=== PATIENT | male | born 1960 | race Caucasian/White ===

== ENCOUNTER → 2016-10-05 | Outpatient (CLI) | payer OTHER ==
[~2016-10-05] MED LIST: /ADVA50050 IN; ACET65TA; ALDA25TA2; ALDA25TA2 OR; AMIO400T; ASPI81TA3; ASPI81TA83 OR; ATOR1TAB18 PO; AVOD0.5C OR; BACT800T; CETI10TA OR; COENCAP; COLA100C2 OR; CORD200T; CORE12.5; CORE12.5 OR; DETROL PO; DIAZ5TAB OR; FLUC10TA; LANO0.1211; LASI40TA; LASI40TA OR; LEVO25TA5 PO; LISI5TAB OR; MAGN400C2 PO; MAGN64TASA PO; MECL25TA2 OR; METF1000 PO; METF500T PO; MOME50SP; MULTTAB4 PO; NEUR300C OR; NEUR600T OR; NEXI40GR OR; NITR0.4S SL; OMEP40CA2 PO; OXYB5TA PO; PERC5TAB8 OR; PERC5TAB8 PO; PRAV20TA2 PO; PRAV40TA OR; PRIN10TA; SKEL800T5 OR; SPIR25TA2 OR; TAMS0.4C PO; THERGRAN; TRAM100T OR; VARE05TA; VARE1TA; VENTAER INH; VITA250T; VITAMIN D50000 UNT OR; VOLT1GEL24 TD; ZOCO10TA; [UNRECOGNIZED DRUG - OTHER]; [UNRECOGNIZED DRUG - OTHER] PO; drisdol PO
--- NOTE | 2016-10-21 01:00 | ECWPNPC ---
PATIENT NAME: CAMILO ARMSTRONG : 1960 GENDER: MALE VISIT DATE: 10/05/2016 DISCHARGE DATE: 10/05/16 0955 VISIT LOCKED DATE TIME: PHYSICIAN: CELINA FORD PHYSICIAN PAGER NO: TEXT TO [phone] RESOURCE: CELINA FORD REASON FOR APPOINTMENT 1. NECK/THORACIC HISTORY OF PRESENT ILLNESS HISTORY OF PRESENT ILLNESS: PAIN THE PATIENT DESCRIBES THE PAIN... FALL RISK SCREENING: SCREENING :NO FALLS IN THE PAST YEAR TODAY'S VISIT: NOTES: FOLLOW UP VISIT FOR NECK AND THORACIC SPINE. IS STATUS POST THORACIC EPIDURAL INJECTION ON 09/07/16. PAIN PRIOR TO INJECTION WAS 8/10 WITH RADICULAR PAIN AROUND THE RIB AREA. NOTED THAT PAIN INCREASED FOR THE FIRST WEEK POST INJECTION AND THEN IMPROVED TO 5/10. HAS NOTED 50 % OVERALL IMPROVEMENT IN PAIN AND MOBILITY. WAS ALSO STARTED ON ON CYMBALTA WJICH HAS ALSO BEEN HELPFUL. WAS ABLE TO DECREASE PAIN MEDS.. CURRENT MEDICATIONS TAKING NASACORT AQ 55 MCG/ACT AEROSOL 1 PUFF IN EACH NOSTRIL NASALLY ONCE A DAY TAKING NITROSTAT 0.4 MG TABLET SUBLINGUAL 1 TAB SUBLINGUAL TAB1 TAB FOR CHEST PAIN IF NO RELIEF IN 5 MINUTES TAKE 2ND NITRO IF NO RELIEF AFTER 5 MINUTES TAKE 3RD NITRO ER TAKING MULTIVITAMINS 1 TABLET DIRECTED ORALLY DAILY, NOTES: 09-07-16 0700 TAKING ALCOHOL PREP PAD 70 % PAD DIRECTED EXTERNALLY TID PRN DX: 250.02 TAKING VITAMIN D3 2000 UNITS TABLET 1 TAB ORALLY ONCE A DAY TAKING ONE TOUCH/ONE TOUCH II STARTER 1 EA 250.02 VITRO DAILY TAKING ONE TOUCH ULTRA 2 LANCET ONE TOUCH ULTRA MINI LANCETS DIRECTED TOP QID AND PRN DX 250.00 TAKING ONE TOUCH ULTRA 2 STRIPS ONE TOUCH ULTRA MINI STRIPS DIRECTED TOP QID AND PRN DX 250.00 TAKING MIRALAX 17 GM POWDER 17GM ORALLY DAILY NEEDED, NOTES: NONE TAKING MAGNESIUM 64 MG CAPSULE 1 TAB ORALLY TWICE A DAY TAKING CLOBETASOL PROPIONATE 0.05 % CREAM 1 APPLICATION TO AFFECTED AREA EXTERNALLY TWICE A DAY NEEDED TAKING NEURONTIN 300 300 MG TABLET 1 TAB ORALLY THREE TIMES A DAY TAKING ZONISAMIDE 50 MG CAPSULE 1 CAP ORALLY ONCE DAILY TAKING ZYRTEC 10 MG TABLET 1 TABLET ORALLY ONCE A DAY TAKING COLACE 100 MG CAPSULE 1 CAPSULE NEEDED ORALLY TWICE DAILY TAKING OXYBUTYNIN CHLORIDE ER 5 MG TABLET EXTENDED RELEASE 24 HOUR DIRECTED ORALLY DAILY TAKING DETROL 2 MG TABLET 1 TABLET ORALLY TWICE A DAY TAKING TRAMADOL HCL ER 100 MG TABLET EXTENDED RELEASE 24 HOUR 1 TABLET ORALLY ONCE A DAY MDD=1 TAKING DRISDOL 84988 UNIT CAPSULE 1 CAPSULE ORALLY ONCE WEEKLY FOR 10 WEEKS TAKING LISINOPRIL 2.5MG TABLET 1 TAB ORALLY AT BEDTIME TAKING COREG 12.5MG TABLET 1 TAB ORALLY TWICE DAILY TAKING ASPIRIN 81 MG TABLET DELAYED RELEASE 1 TAB ORALLY DAILY TAKING LEVOTHYROXINE SODIUM 25 MCG TABLET 1 TABLET ON AN EMPTY STOMACH IN THE MORNING ORALLY ONCE A DAY TAKING LIPITOR 80 MG TABLET 1 TABLET ORALLY ONCE A DAY AT BEDTIME TAKING OMEPRAZOLE 40 MG CAPSULE DELAYED RELEASE 1 CAPSULE ORALLY TWICE A DAY TAKING ADVAIR DISKUS 250-50 MCG/DOSE MISCELLANEOUS 1 INHALATION. ALWAYS RINSE YOUR MOUTH OUT AFTER USE DAILY TAKING VENTOLIN HFA 108 (90 BASE) MCG/ACT AEROSOL SOLUTION 2 PUFFS INHALATION EVERY 4-6 HOURS NEEDED TAKING ALDACTONE 25 MG TABLET 1 TAB ORALLY DAILY TAKING LASIX 40 MG TABLET 1 TAB ORALLY DAILY NEEDED, NOTES: NONE TAKING MECLIZINE HCL 25 MG TABLET 1 TABLET ORALLY 1-2 TIMES DAILY NEEDED TAKING TAMSULOSIN HCL 0.4 MG CAPSULE 1 CAPSULE 30 MINUTES AFTER THE SAME MEAL EACH DAY ORALLY ONCE A DAY TAKING CYMBALTA 20 MG CAPSULE DELAYED RELEASE PARTICLES 2 CAPSULE ORALLY ONCE A DAY TAKING SKELAXIN 800 MG TABLET 1 TABLET ORALLY FOUR TIMES DAY WORKMEN COMP TAKING PERCOCET 5-325 MG TABLET 1 TABLET ORALLY Q 4 HRS PRN PAIN MDD=5 TAKING AVODART 0.5 MG CAPSULE 1 CAPSULE ORALLY ONCE A DAY TAKING METFORMIN HCL 500 MG TABLET 1 TABLET WITH MEALS IN AM, 2 TABS IN THE PM ORALLY 500MG AM, 1000MG AT BEDTIME MEDICATION LIST REVIEWED AND RECONCILED WITH THE PATIENT PAST MEDICAL HISTORY COPD- SPIROMETRY- 02/05/14- DECLINES AT THIS TIME CHF (SYSTOLIC AND DIASTOLIC)- CANNY HYPERLIPIDEMIA HYPERTENSION GERD CHRONIC LOW BACK PAIN- W COMP- DR BOJORQUEZ- CHRONIC PAIN MEDS PER [facility] PAIN MANAGEMENT. CHRONIC RT KNEE PAIN VERTIGO (SINCE 1990) OBESITY H/O HEAVY ALCOHOL USE (IN REMISSION) ASCVD 10-YEAR RISK IS 3.6% IN HTE ALLERGIES RED DYE: RASH TOMATO: NAUSEA/VOMITING: ALLERGY FINASTERIDE: FLARED CHF: CONTRAINDICATION NSAIDS: CONGESTIVE FAILURE: CONTRAINDICATION VOLTAREN: GEL/ SPASMS/PAIN: ALLERGY LYRICA: CONTRAINDICATION SOCIAL HISTORY GENERAL: TOBACCO USE ARE YOU A:NONSMOKER LEARNING BARRIERS / SPECIAL NEEDS ORIENTED TO PLAN OF CARE: PATIENT, PAIN MANAGEMENT PATIENT, ORIENTED TO PLAN OF CARE: PATIENT, PAIN MANAGEMENT PATIENT. NEW PATIENT PAIN DIARY TODAY'S VISITNOTES FROM 0-10, WHAT LEVEL IS YOUR PAIN TODAY?0 PAIN CLINIC PFS, CLERGY, PUBLIC HEALTH REFERRALS PFS REFERRAL NEEDED?NO CLERGY REFERRAL NEEDED?NO PUBLIC HEALTH REFERRAL NEEDED?NO WAS THE PROVIDER NOTIFIED OF ANY PERTINENT INFO?NO PFS REFERRAL NEEDED?NO CLERGY REFERRAL NEEDED?NO PUBLIC HEALTH REFERRAL NEEDED?NO WAS THE PROVIDER NOTIFIED OF ANY PERTINENT INFO?NO REVIEW OF SYSTEMS CONSTITUTIONAL: ANY CHANGE IN YOUR MEDICAL CONDITION? NO . CHILLS NO . FEVER NO . INFECTION: DO YOU HAVE NEW INFECTIONS? NO . DO YOU HAVE HISTORY OF MRSA? NO . MUSCULOSKELETAL: ANY NEW PATTERNS OF PAIN OR NUMBNESS? NO . GASTROENTEROLOGY: ANY NEW CHANGE IN BOWEL CONTROL? NO . GENITOURINARY: ANY NEW CHANGE IN BLADDER CONTROL? NO . IS THERE A CHANCE YOU COULD BE ? NO . HEMATOLOGY/LYMPH: DO YOU TAKE ANY BLOOD THINNERS? (FOR EXAMPLE- COUMADIN, PLAVIX, AGGRENOX, PLATEL, PRADAXA, OR XARELTO) NO . WHEN WAS YOUR LAST DOSE? DATE: TIME: . NEUROLOGY: HAVE YOU FALLEN IN THE PAST 6 MONTHS? NO . ANY NEW EXTREMITY NUMBNESS OR WEAKNESS? NO . CARDIOLOGY: DO YOU HAVE A PACEMAKER OR DEFIBRILLATOR? YES . ANGINA RECENT MILD ANGINA WITH ACTIVITY. . RESPIRATORY: HAVE YOU BEEN SICK IN THE PAST WEEK? NO . FEVER NO . FLU LIKE SYMPTOMS? NO . COUGH NO . INTEGUMENTARY: DO YOU HAVE ANY RASHES OR OPEN SORES? YES ON TAIL BONE/CHRONIUC AND IS APPLYING PRESCRIBED OINTMENT . ALLERGIC/IMMUNO: ARE YOU ALLERGIC TO SHELLFISH OR IV DYE? NO . ANY NEW ALLERGIES? NO . PSYCHIATRIC: DO YOU HAVE THOUGHTS OF HURTING YOURSELF OR SOMEONE ELSE? NO . ARE YOU ABUSED, NEGLECTED, OR IN AN UNSAFE ENVIRONMENT? NO . ENDOCRINOLOGY: ARE YOU DIABETIC? YES . OTHER: DO YOU NEED ANY PRESCRIPTIONS? NO . IF YES, PLEASE LIST: ____ . ANY NEW PROBLEMS WITH YOUR MEDICATIONS? NO . WHEN DID YOU LAST EAT? ____ . WHEN DID YOU LAST DRINK? ____ . WHAT DID YOU LAST DRINK? ____ . NAME OF PERSON DRIVING YOU HOME? ____ . DO YOU HAVE ANY OTHER QUESTIONS OR CONCERNS NO . REVIEWED BY: PROVIDER: CELINA CONTRERAS . VITAL SIGNS WT 245 LBS, HT 72 IN, BMI 33.22 INDEX, BP 126/48 MM HG, HR 78 /MIN, RR 18 /MIN, TEMP 96 F,8 F, OXYGEN SAT % 97, SAFE IN ENV? (Y/N) Y, REVIEWED BY: KG. EXAMINATION GENERAL EXAMINATION: PSYCHALERT , ORIENTED X 3 , APPROPRIATE MOOD AND AFFECT , APPEARS UNCOMFORTABLE. HAS TROUBLE SITTING STILL. LUNGS:CLEAR TO AUSCULTATION BILATERALLY. HEART:HEART RATE IRREGULAR. MUSCULOSKELETAL: TRIGGER POINTS:, ELICITED WITH PALPATION OVER MID THORACIC MUSCLES WITH RESTRICTION OF RESPIRATORY EXCURSION NOTED. , ELICITED WITH PALPATION OVER CERVICAL SPINOUS PROCESSES AND ACROSS THE TRAPEZIUS MUSCLES BILATERALLY. RESTRICTION OF ROM IN NECK MOVEMENT IS NOTED. INCREASED PAIN WITH THORACIC EXTENSION.. 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 CONTINUE CURRENT MEDS. CALL WHEN MEDS DUE. PROCEDURES PN WORKMANS' COMP OPINION IN YOUR OPINION, WAS THE INCIDENT THAT THE PATIENT DESCRIBED THE COMPETENT MEDICAL CAUSE OF THIS INJURY/ILLNESS? YES ARE THE PATIENT'S COMPLAINTS CONSISTENT WITH HIS/HER HISTORY OF THE INJURY/ILLNESS? YES IS THE PATIENT'S HISTORY OF THE INJURY/ILLNESS CONSISTENT WITH YOUR OBJECTIVE FINDING? YES WHAT IS THE PERCENTAGE OF TEMPORARY IMPAIRMENT? MODERATE TO MARKED = 66.7% IS THE PATIENT WORKING? NO DOCTOR ON SITE: THELMA NUNEZ MD PROCEDURE CODES FA211 ESTABILISHED PATIENT [facility] FACILITY CHARGE FOLLOW UP WC THORACIC 6 WEEKS ELECTRONICALLY SIGNED BY ESCOBAR VALENTIN ON 10/19/2016 AT 01:50 PM EST DISCLAIMER : THIS IS A VISIT SUMMARY EXTRACTED FROM THE [employer] CHART. IT IS NOT A COPY OF THE [employer] PROGRESS NOTE. MTDD
== END ==
LOC: M PAIN 09:00
PROVIDERS: ATTEND Nurse Practitioner Family
DX: Z09 Encounter for follow-up examination after completed treatment for conditions other than malignant neoplasm (principal); M79.1 Myalgia; G89.29 Other chronic pain; M54.14 Radiculopathy, thoracic region; M51.24 Other intervertebral disc displacement, thoracic region; M25.561 Pain in right knee; E11.9 Type 2 diabetes mellitus without complications; J44.9 Chronic obstructive pulmonary disease, unspecified; I50.40 Unspecified combined systolic (congestive) and diastolic (congestive) heart failure; I10 Essential (primary) hypertension; K21.9 Gastro-esophageal reflux disease without esophagitis; E78.5 Hyperlipidemia, unspecified; E66.9 Obesity, unspecified; Z68.33 Body mass index [BMI] 33.0-33.9, adult; Z91.048 Other nonmedicinal substance allergy status; Z91.018 Allergy to other foods; Z88.8 Allergy status to other drugs, medicaments and biological substances; Z79.891 Long term (current) use of opiate analgesic; Z79.82 Long term (current) use of aspirin; Z79.84 Long term (current) use of oral hypoglycemic drugs; Z79.899 Other long term (current) drug therapy; Z86.69 Personal history of other diseases of the nervous system and sense organs; Z85.59 Personal history of malignant neoplasm of other urinary tract organ; Z95.0 Presence of cardiac pacemaker

== ENCOUNTER → 2016-11-05 | Outpatient (CLI) | payer OTHER ==
[2016-11-05 16:43] LABS: ALBUMIN 3.8 GM/DL (3.2-5.2); ANION GAP 6 MEQ/L (8-16); BLOOD UREA NITROGEN 22 MG/DL (7-18); CALCIUM LEVEL 8.8 MG/DL (8.5-10.1); CARBON DIOXIDE LEVEL 29 MEQ/L (21-32); CHLORIDE LEVEL 106 MEQ/L (98-107); CREATININE FOR GFR 0.97 MG/DL (0.70-1.30); GLOMERULAR FILTRATION RATE > 60.0 (>56); GLUCOSE, FASTING 107 MG/DL (70-105); MAGNESIUM LEVEL 2.1 MG/DL (1.8-2.4); PHOSPHORUS LEVEL 3.4 MG/DL (2.5-4.9); POTASSIUM SERUM 4.4 MEQ/L (3.5-5.1); SODIUM LEVEL 141 MEQ/L (136-145)
== END ==
LOC: M LAB 15:54
PROVIDERS: ATTEND Physician Assistant
DX: I42.0 Dilated cardiomyopathy (principal); I50.42 Chronic combined systolic (congestive) and diastolic (congestive) heart failure

== ENCOUNTER → 2016-11-05 | Outpatient (CLI) | payer OTHER ==
[2016-11-05 16:45] LABS: ALBUMIN/GLOBULIN RATIO 1.33 (1.00-1.93); ALKALINE PHOSPHATASE 110 U/L (45-117); ALT/SGPT 26 U/L (12-78); ANION GAP 4 MEQ/L (8-16); AST/SGOT 11 U/L (15-37); BILIRUBIN,TOTAL 0.3 MG/DL (0.2-1.0); BLOOD UREA NITROGEN 22 MG/DL (7-18); CALCIUM LEVEL 9.1 MG/DL (8.5-10.1); CARBON DIOXIDE LEVEL 31 MEQ/L (21-32); CHLORIDE LEVEL 106 MEQ/L (98-107); GLOMERULAR FILTRATION RATE > 60.0 (>56); GLUCOSE, FASTING 104 MG/DL (70-105); POTASSIUM SERUM 4.6 MEQ/L (3.5-5.1); SODIUM LEVEL 141 MEQ/L (136-145)
== END ==
LOC: M LAB 15:57
PROVIDERS: ATTEND Nurse Practitioner Family
DX: E11.9 Type 2 diabetes mellitus without complications (principal)

== ENCOUNTER → 2016-11-25 | Outpatient (CLI) | payer OTHER ==
--- NOTE | 2016-11-25 23:52 | ECWPNPC ---
PATIENT NAME: CAMILO ARMSTRONG : 1960 GENDER: MALE VISIT DATE: 11/25/2016 DISCHARGE DATE: 11/25/16 1132 VISIT LOCKED DATE TIME: PHYSICIAN: CELINA FORD PHYSICIAN PAGER NO: TEXT TO [phone] RESOURCE: CELINA FORD REASON FOR APPOINTMENT 1. NECK/THORACIC HISTORY OF PRESENT ILLNESS HISTORY OF PRESENT ILLNESS: PAIN THE PATIENT DESCRIBES THE PAIN... FALL RISK SCREENING: SCREENING :NO FALLS IN THE PAST YEAR TODAY'S VISIT: NOTES: FOLLOWUP FOR NECK/THORACIC SPINE. HAD RECENT CT MYLOGRAM. RATES PAIN 8/10 IN NECK AND THORACIC AREA. REPORTS HAS HAD PERSISTANT HEADACHE. REPORTS RAISING ARMS IS VERY PAINFUL OVER MID THORACIC REGION. CURRENT MEDICATIONS TAKING NASACORT AQ 55 MCG/ACT AEROSOL 1 PUFF IN EACH NOSTRIL NASALLY ONCE A DAY TAKING NITROSTAT 0.4 MG TABLET SUBLINGUAL 1 TAB SUBLINGUAL TAB1 TAB FOR CHEST PAIN IF NO RELIEF IN 5 MINUTES TAKE 2ND NITRO IF NO RELIEF AFTER 5 MINUTES TAKE 3RD NITRO ER TAKING MULTIVITAMINS 1 TABLET DIRECTED ORALLY DAILY, NOTES: 09-07-16 0700 TAKING ALCOHOL PREP PAD 70 % PAD DIRECTED EXTERNALLY TID PRN DX: 250.02 TAKING VITAMIN D3 2000 UNITS TABLET 1 TAB ORALLY ONCE A DAY TAKING ONE TOUCH/ONE TOUCH II STARTER 1 EA 250.02 VITRO DAILY TAKING ONE TOUCH ULTRA 2 LANCET ONE TOUCH ULTRA MINI LANCETS DIRECTED TOP QID AND PRN DX 250.00 TAKING ONE TOUCH ULTRA 2 STRIPS ONE TOUCH ULTRA MINI STRIPS DIRECTED TOP QID AND PRN DX 250.00 TAKING MIRALAX 17 GM POWDER 17GM ORALLY DAILY NEEDED, NOTES: NONE TAKING MAGNESIUM 64 MG CAPSULE 1 TAB ORALLY TWICE A DAY TAKING CLOBETASOL PROPIONATE 0.05 % CREAM 1 APPLICATION TO AFFECTED AREA EXTERNALLY TWICE A DAY NEEDED TAKING ZONISAMIDE 50 MG CAPSULE 1 CAP ORALLY ONCE DAILY TAKING OXYBUTYNIN CHLORIDE ER 5 MG TABLET EXTENDED RELEASE 24 HOUR DIRECTED ORALLY DAILY TAKING DETROL 2 MG TABLET 1 TABLET ORALLY TWICE A DAY TAKING TRAMADOL HCL ER 100 MG TABLET EXTENDED RELEASE 24 HOUR 1 TABLET ORALLY ONCE A DAY MDD=1 TAKING DRISDOL 64323 UNIT CAPSULE 1 CAPSULE ORALLY ONCE WEEKLY FOR 10 WEEKS TAKING LISINOPRIL 2.5MG TABLET 1 TAB ORALLY AT BEDTIME TAKING COREG 12.5MG TABLET 1 TAB ORALLY TWICE DAILY TAKING ASPIRIN 81 MG TABLET DELAYED RELEASE 1 TAB ORALLY DAILY TAKING LEVOTHYROXINE SODIUM 25 MCG TABLET 1 TABLET ON AN EMPTY STOMACH IN THE MORNING ORALLY ONCE A DAY TAKING LIPITOR 80 MG TABLET 1 TABLET ORALLY ONCE A DAY AT BEDTIME TAKING ADVAIR DISKUS 250-50 MCG/DOSE MISCELLANEOUS 1 INHALATION. ALWAYS RINSE YOUR MOUTH OUT AFTER USE DAILY TAKING VENTOLIN HFA 108 (90 BASE) MCG/ACT AEROSOL SOLUTION 2 PUFFS INHALATION EVERY 4-6 HOURS NEEDED TAKING ALDACTONE 25 MG TABLET 1 TAB ORALLY DAILY TAKING LASIX 40 MG TABLET 1 TAB ORALLY DAILY NEEDED, NOTES: NONE TAKING MECLIZINE HCL 25 MG TABLET 1 TABLET ORALLY 1-2 TIMES DAILY NEEDED TAKING TAMSULOSIN HCL 0.4 MG CAPSULE 1 CAPSULE 30 MINUTES AFTER THE SAME MEAL EACH DAY ORALLY ONCE A DAY TAKING CYMBALTA 20 MG CAPSULE DELAYED RELEASE PARTICLES 2 CAPSULE ORALLY ONCE A DAY TAKING SKELAXIN 800 MG TABLET 1 TABLET ORALLY FOUR TIMES DAY WORKMEN COMP TAKING AVODART 0.5 MG CAPSULE 1 CAPSULE ORALLY ONCE A DAY TAKING METFORMIN HCL 500 MG TABLET 1 TABLET WITH MEALS IN AM, 2 TABS IN THE PM ORALLY 500MG AM, 1000MG AT BEDTIME TAKING PERCOCET 5-325 MG TABLET 1 TABLET ORALLY Q 4 HRS PRN PAIN MDD=5 TAKING COLACE 100 MG CAPSULE 1 CAPSULE NEEDED ORALLY TWICE DAILY TAKING ZYRTEC 10 MG TABLET 1 TABLET ORALLY ONCE A DAY TAKING GABAPENTIN 300 MG CAPSULE 1 CAPSULE ORALLY THREE TIMES A DAY TAKING OMEPRAZOLE 40 MG CAPSULE DELAYED RELEASE 1 CAPSULE ORALLY TWICE A DAY PAST MEDICAL HISTORY COPD- SPIROMETRY- 02/05/14- DECLINES AT THIS TIME CHF (SYSTOLIC AND DIASTOLIC)- [place] HYPERLIPIDEMIA HYPERTENSION GERD CHRONIC LOW BACK PAIN- W COMP- DR BOJORQUEZ- CHRONIC PAIN MEDS PER [facility] PAIN MANAGEMENT. CHRONIC RT KNEE PAIN VERTIGO (SINCE 1990) OBESITY H/O HEAVY ALCOHOL USE (IN REMISSION) ASCVD 10-YEAR RISK IS 3.6% IN HTE ALLERGIES RED DYE: RASH TOMATO: NAUSEA/VOMITING: ALLERGY FINASTERIDE: FLARED CHF: CONTRAINDICATION NSAIDS: CONGESTIVE FAILURE: CONTRAINDICATION VOLTAREN: GEL/ SPASMS/PAIN: ALLERGY LYRICA: CONTRAINDICATION SOCIAL HISTORY GENERAL: TOBACCO USE ARE YOU A:NONSMOKER LEARNING BARRIERS / SPECIAL NEEDS ORIENTED TO PLAN OF CARE: PATIENT, PAIN MANAGEMENT PATIENT, ORIENTED TO PLAN OF CARE: PATIENT, PAIN MANAGEMENT PATIENT. NEW PATIENT PAIN DIARY TODAY'S VISITNOTES FROM 0-10, WHAT LEVEL IS YOUR PAIN TODAY?0 PAIN CLINIC PFS, CLERGY, PUBLIC HEALTH REFERRALS PFS REFERRAL NEEDED?NO CLERGY REFERRAL NEEDED?NO PUBLIC HEALTH REFERRAL NEEDED?NO WAS THE PROVIDER NOTIFIED OF ANY PERTINENT INFO?NO PFS REFERRAL NEEDED?NO CLERGY REFERRAL NEEDED?NO PUBLIC HEALTH REFERRAL NEEDED?NO WAS THE PROVIDER NOTIFIED OF ANY PERTINENT INFO?NO REVIEW OF SYSTEMS CONSTITUTIONAL: ANY CHANGE IN YOUR MEDICAL CONDITION? YES SUFFERED THE STOMACH BUG FOR 8 DAYS . CHILLS NO . FEVER NO . INFECTION: DO YOU HAVE NEW INFECTIONS? HAD RECENT GI BUG WITH NAUSEA AND VOMITING AND HAS HAD SIG CONSTIPATION . DO YOU HAVE HISTORY OF MRSA? NO . MUSCULOSKELETAL: ANY NEW PATTERNS OF PAIN OR NUMBNESS? NO . GASTROENTEROLOGY: ANY NEW CHANGE IN BOWEL CONTROL? NOSIGNIFICANT DIFFICULTY WITH CONSTIPATION DESPITE MIRALAX AND STOOL SOFTENER. . GENITOURINARY: ANY NEW CHANGE IN BLADDER CONTROL? YES STOMACH BUG NOW CONSTIPATED . IS THERE A CHANCE YOU COULD BE ? NO . HEMATOLOGY/LYMPH: DO YOU TAKE ANY BLOOD THINNERS? (FOR EXAMPLE- COUMADIN, PLAVIX, AGGRENOX, PLATEL, PRADAXA, OR XARELTO) NO . WHEN WAS YOUR LAST DOSE? DATE: TIME: . NEUROLOGY: HAVE YOU FALLEN IN THE PAST 6 MONTHS? NO . ANY NEW EXTREMITY NUMBNESS OR WEAKNESS? NO . HEADACHE HEADACHE STARTS AT BASE OF HEAD AND BEHIND EYES - WORSE SINCE CT MYELOGRAM . CARDIOLOGY: DO YOU HAVE A PACEMAKER OR DEFIBRILLATOR? NO . RESPIRATORY: HAVE YOU BEEN SICK IN THE PAST WEEK? NO . FEVER NO . FLU LIKE SYMPTOMS? NO . COUGH NO . INTEGUMENTARY: DO YOU HAVE ANY RASHES OR OPEN SORES? YES LEFT ARM PIT NEW RASH A MONTH AGO ITS PAINFUL NOT ITCHY . ALLERGIC/IMMUNO: ARE YOU ALLERGIC TO SHELLFISH OR IV DYE? NO . ANY NEW ALLERGIES? NO . PSYCHIATRIC: DO YOU HAVE THOUGHTS OF HURTING YOURSELF OR SOMEONE ELSE? NO . ARE YOU ABUSED, NEGLECTED, OR IN AN UNSAFE ENVIRONMENT? NO . ENDOCRINOLOGY: ARE YOU DIABETIC? NO . OTHER: DO YOU NEED ANY PRESCRIPTIONS? NO . IF YES, PLEASE LIST: ____ . ANY NEW PROBLEMS WITH YOUR MEDICATIONS? NO . WHEN DID YOU LAST EAT? ____ . WHEN DID YOU LAST DRINK? ____ . WHAT DID YOU LAST DRINK? ____ . NAME OF PERSON DRIVING YOU HOME? ____ . DO YOU HAVE ANY OTHER QUESTIONS OR CONCERNS NO . REVIEWED BY: PROVIDER: CELINA CONTRERAS . VITAL SIGNS WT 254 LBS, HT 72 IN, BMI 34.44 INDEX, BP 113/66 MM HG, HR 89 /MIN, RR 18 /MIN, TEMP 97.3 F, OXYGEN SAT % 96%, NA INITIALS SC 11:05, REVIEWED BY: KG. EXAMINATION GENERAL EXAMINATION: PSYCHALERT , ORIENTED X 3 , APPROPRIATE MOOD AND AFFECT , APPEARS UNCOMFORTABLE. LUNGS:CLEAR TO AUSCULTATION BILATERALLY - NOT THORACIC CHEST WAL PAIN WITH TAKING A DEEP BREATH. HEART:HEART RATE REGULAR. MUSCULOSKELETAL:MANAGER HARBOR STRENGTH EQUAL AND STRONG. MARKED DECREASE WITH NECK FLEXION/EXTENSION, ROTATION. , TRIGGER POINTS AND TIGHT FIROUS BANDS OVER CERVICAL PARASPINOUS MUSCLES AND OVER THE TRAPEZIUS, RIGHT GREATER THAN LEFT. SLOW TO RISE TO STANDING POSITION. POSTURE STOOPED. GAIT ANTALGIC.. NEUROLOGIC EXAM:CN'S II-XII GROSSLY INTACT. EOM'S INTACT WITHOUT NYSTAGMUS. SPEACH NON DYSARTHRIC.. 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 USE TENNIS TO TRIGGER POINTS IN MID THORACIC REGION. CONTINUE CURRENT MEDS FOR PAIN CONTROL AND MUSCLE SPASMS. CLINICAL NOTES: ISTOP REGISTRY REVIEWED AND DEMNOSTRATES COMPLLIANCE. BRINGS IN MEDICATIONS WHICH IS APPROPRIATE FOR WHAT WAS DISPENSED. RECENT URINE TOXICOLOGY REVIEWED. NO UNAUTHORIZED MEDICATIONS. NO ILLICIT SUBSTANCES AND PRESCRIBED MEDICATIONS WERE PRESENT. PROCEDURES PN WORKMANS' COMP OPINION IN YOUR OPINION, WAS THE INCIDENT THAT THE PATIENT DESCRIBED THE COMPETENT MEDICAL CAUSE OF THIS INJURY/ILLNESS? YES ARE THE PATIENT'S COMPLAINTS CONSISTENT WITH HIS/HER HISTORY OF THE INJURY/ILLNESS? YES IS THE PATIENT'S HISTORY OF THE INJURY/ILLNESS CONSISTENT WITH YOUR OBJECTIVE FINDING? YES WHAT IS THE PERCENTAGE OF TEMPORARY IMPAIRMENT? MODERATE TO MARKED = 66.7% IS THE PATIENT WORKING? NO DOCTOR ON SITE: THELMA NUNEZ MD PROCEDURE CODES FA211 ESTABILISHED PATIENT [facility] CHARGE DISPOSITION & COMMUNICATION FOLLOW UP WC 6 WEEKS (REASON: NECK/THORACIC) ELECTRONICALLY SIGNED BY ESCOBAR VALENTIN ON 11/25/2016 AT 04:20 PM EST DISCLAIMER : THIS IS A VISIT SUMMARY EXTRACTED FROM THE [employer] CHART. IT IS NOT A COPY OF THE [employer] PROGRESS NOTE. JULIETA
== END ==
LOC: M PAIN 10:20
PROVIDERS: ATTEND Nurse Practitioner Family
DX: Z09 Encounter for follow-up examination after completed treatment for conditions other than malignant neoplasm (principal); G89.29 Other chronic pain; M79.1 Myalgia; M54.14 Radiculopathy, thoracic region; M51.24 Other intervertebral disc displacement, thoracic region; J44.9 Chronic obstructive pulmonary disease, unspecified; I50.9 Heart failure, unspecified; E78.5 Hyperlipidemia, unspecified; I11.0 Hypertensive heart disease with heart failure; K21.9 Gastro-esophageal reflux disease without esophagitis; E66.9 Obesity, unspecified; Z68.34 Body mass index [BMI] 34.0-34.9, adult; L23.4 Allergic contact dermatitis due to dyes; Z91.018 Allergy to other foods; Z88.6 Allergy status to analgesic agent; Z88.8 Allergy status to other drugs, medicaments and biological substances; Z79.82 Long term (current) use of aspirin; Z79.51 Long term (current) use of inhaled steroids; Z79.84 Long term (current) use of oral hypoglycemic drugs; Z79.891 Long term (current) use of opiate analgesic; Z79.899 Other long term (current) drug therapy; Z86.69 Personal history of other diseases of the nervous system and sense organs

== ENCOUNTER → 2016-12-27 | Outpatient (CLI) | payer OTHER ==
[2016-12-27 15:56] LABS: BASO % 0.6 % (0.0-1.0); EOS # 0.3 K/mm3 (0.0-0.50); LARGE UNSTAINED CELL # 0.1 K/mm3 (0.0-0.4); LARGE UNSTAINED CELL % 1.6 % (0.0-4.0); LYMPH # 1.8 K/mm3 (1.5-4.5); LYMPH % 20.4 % (24.0-44.0); MEAN CORPUSCULAR HEMOGLOBIN 29.3 pg (27.0-33.0); MEAN CORPUSCULAR HGB CONC 32.8 g/dl (32.0-36.5); MEAN CORPUSCULAR VOLUME 89.3 fl (80.0-96.0); MONO # 0.5 K/mm3 (0.0-0.8); MONO % 6.7 % (0.0-5.0); NEUTROPHILS # 5.4 K/mm3 (1.8-7.7); NEUTROPHILS % 66.7 % (36.0-66.0); PLATELET COUNT, AUTOMATED 237 k/mm3 (150-450); RED CELL DISTRIBUTION WIDTH 13.5 % (11.5-14.5)
[2016-12-27 16:42] LABS: ANION GAP 7 MEQ/L (8-16); BLOOD UREA NITROGEN 21 MG/DL (7-18); CARBON DIOXIDE LEVEL 27 MEQ/L (21-32); CHLORIDE LEVEL 105 MEQ/L (98-107); CREATININE FOR GFR 0.96 MG/DL (0.70-1.30); GLOMERULAR FILTRATION RATE > 60.0 (>56); GLUCOSE, FASTING 116 MG/DL (70-105); PHOSPHORUS LEVEL 3.6 MG/DL (2.5-4.9); POTASSIUM SERUM 4.5 MEQ/L (3.5-5.1); SODIUM LEVEL 139 MEQ/L (136-145)
== END ==
LOC: M LAB 14:55
PROVIDERS: ATTEND Physician Assistant
DX: I42.0 Dilated cardiomyopathy (principal); I50.42 Chronic combined systolic (congestive) and diastolic (congestive) heart failure; I47.2 Ventricular tachycardia

== ENCOUNTER → 2017-01-06 | Outpatient (CLI) | payer OTHER ==
--- NOTE | 2017-01-08 00:31 | ECWPNPC ---
PATIENT NAME: CAMILO ARMSTRONG : 1960 GENDER: MALE VISIT DATE: 01/06/2017 DISCHARGE DATE: 01/06/17 1111 VISIT LOCKED DATE TIME: PHYSICIAN: CELINA FORD PHYSICIAN PAGER NO: TEXT TO [phone] RESOURCE: CELINA FORD REASON FOR APPOINTMENT 1. NECK/THORACIC-WC HISTORY OF PRESENT ILLNESS HISTORY OF PRESENT ILLNESS: PAIN THE PATIENT DESCRIBES THE PAIN... FALL RISK SCREENING: SCREENING :NO FALLS IN THE PAST YEAR TODAY'S VISIT: NOTES: WC- THORACIC SPINE (SPEC FUNDS) HAS NOTED A RETURN OF MID THORACIC PAIN OVER LAST FEW WEEKS. RATES PAIN TODAY 7/10. DESCRIBES PAIN CONSTANT, INTERMITTANTLY SHARP AND STABBING, TENDER ACHING AND TROBBING AND SORE. CURRENT MEDICATIONS TAKING LISINOPRIL 2.5MG TABLET 1 TAB ORALLY AT BEDTIME TAKING COREG 12.5MG TABLET 1 TAB ORALLY TWICE DAILY TAKING ASPIRIN 81 MG TABLET DELAYED RELEASE 1 TAB ORALLY DAILY TAKING LIPITOR 80 MG TABLET 1 TABLET ORALLY ONCE A DAY AT BEDTIME TAKING ADVAIR DISKUS 250-50 MCG/DOSE MISCELLANEOUS 1 INHALATION. ALWAYS RINSE YOUR MOUTH OUT AFTER USE DAILY TAKING VENTOLIN HFA 108 (90 BASE) MCG/ACT AEROSOL SOLUTION 2 PUFFS INHALATION EVERY 4-6 HOURS NEEDED TAKING ALDACTONE 25 MG TABLET 1 TAB ORALLY DAILY TAKING LASIX 40 MG TABLET 1 TAB ORALLY DAILY NEEDED, NOTES: NONE TAKING MECLIZINE HCL 25 MG TABLET 1 TABLET ORALLY 1-2 TIMES DAILY NEEDED TAKING METFORMIN HCL 500 MG TABLET 1 TABLET WITH MEALS IN AM, 2 TABS IN THE PM ORALLY 500MG AM, 1000MG AT BEDTIME TAKING OMEPRAZOLE 40 MG CAPSULE DELAYED RELEASE 1 CAPSULE ORALLY TWICE A DAY TAKING OXYBUTYNIN CHLORIDE ER 5 MG TABLET EXTENDED RELEASE 24 HOUR DIRECTED ORALLY DAILY TAKING KETOCONAZOLE 2 % CREAM 1 APPLICATION TO AFFECTED AREA EXTERNALLY ONCE A DAY TAKING NASACORT AQ 55 MCG/ACT AEROSOL 1 PUFF IN EACH NOSTRIL NASALLY ONCE A DAY TAKING NITROSTAT 0.4 MG TABLET SUBLINGUAL 1 TAB SUBLINGUAL TAB1 TAB FOR CHEST PAIN IF NO RELIEF IN 5 MINUTES TAKE 2ND NITRO IF NO RELIEF AFTER 5 MINUTES TAKE 3RD NITRO ER TAKING VITAMIN D3 2000 UNITS TABLET 1 TAB ORALLY ONCE A DAY TAKING MIRALAX 17 GM POWDER 17GM ORALLY DAILY NEEDED, NOTES: NONE TAKING MAGNESIUM 64 MG CAPSULE 1 TAB ORALLY TWICE A DAY TAKING CLOBETASOL PROPIONATE 0.05 % CREAM 1 APPLICATION TO RECTAL AREA EXTERNALLY TWICE A DAY NEEDED TAKING ZONISAMIDE 50 MG CAPSULE 1 CAP ORALLY ONCE DAILY TAKING TRAMADOL HCL ER 100 MG TABLET EXTENDED RELEASE 24 HOUR 1 TABLET ORALLY ONCE A DAY MDD=1 TAKING TAMSULOSIN HCL 0.4 MG CAPSULE 1 CAPSULE 30 MINUTES AFTER THE SAME MEAL EACH DAY ORALLY ONCE A DAY TAKING CYMBALTA 30 MG CAPSULE DELAYED RELEASE PARTICLES 1 CAPSULE ORALLY ONCE A DAY TAKING SKELAXIN 800 MG TABLET 1 TABLET ORALLY FOUR TIMES DAY WORKMEN COMP TAKING AVODART 0.5 MG CAPSULE 1 CAPSULE ORALLY ONCE A DAY TAKING COLACE 100 MG CAPSULE 1 CAPSULE NEEDED ORALLY TWICE DAILY TAKING ZYRTEC 10 MG TABLET 1 TABLET ORALLY ONCE A DAY TAKING GABAPENTIN 300 MG CAPSULE 1 CAPSULE ORALLY THREE TIMES A DAY TAKING MOVANTIK 25 MG TABLET 1 TABLET IN THE MORNING ORALLY ONCE A DAY, NOTES: 12/02/2016 WAITING ON PRIOR AUTH TAKING DRISDOL 03333 UNIT CAPSULE 1 CAPSULE ORALLY ONCE WEEKLY FOR 10 WEEKS TAKING LEVOTHYROXINE SODIUM 25 MCG TABLET 1 TABLET ON AN EMPTY STOMACH IN THE MORNING ORALLY ONCE A DAY TAKING PERCOCET 5-325 MG TABLET 1 TABLET ORALLY Q 4 HRS PRN PAIN MDD=5 NOT-TAKING DETROL 2 MG TABLET 1 TABLET ORALLY TWICE A DAY NOT-TAKING ONE TOUCH/ONE TOUCH II STARTER 1 EA 250.02 VITRO DAILY UNKNOWN MULTIVITAMINS 1 TABLET DIRECTED ORALLY DAILY, NOTES: 09-07-16 0700 UNKNOWN ALCOHOL PREP PAD 70 % PAD DIRECTED EXTERNALLY TID PRN DX: 250.02 UNKNOWN ONE TOUCH ULTRA 2 LANCET ONE TOUCH ULTRA MINI LANCETS DIRECTED TOP QID AND PRN DX 250.00 UNKNOWN ONE TOUCH ULTRA 2 STRIPS ONE TOUCH ULTRA MINI STRIPS DIRECTED TOP QID AND PRN DX 250.00 MEDICATION LIST REVIEWED AND RECONCILED WITH THE PATIENT PAST MEDICAL HISTORY COPD- SPIROMETRY- 02/05/14- DECLINES AT THIS TIME CHF (SYSTOLIC AND DIASTOLIC)- CANNY HYPERLIPIDEMIA HYPERTENSION GERD CHRONIC LOW BACK PAIN- W COMP- DR BOJORQUEZ- CHRONIC PAIN MEDS PER [facility] PAIN MANAGEMENT. CHRONIC RT KNEE PAIN VERTIGO (SINCE 1990) OBESITY H/O HEAVY ALCOHOL USE (IN REMISSION) ASCVD 10-YEAR RISK IS 3.6% IN HTE COLONOSCOPY 2009 ALLERGIES RED DYE: RASH TOMATO: NAUSEA/VOMITING: ALLERGY FINASTERIDE: FLARED CHF: CONTRAINDICATION NSAIDS: CONGESTIVE FAILURE: CONTRAINDICATION VOLTAREN: GEL/ SPASMS/PAIN: ALLERGY LYRICA: CONTRAINDICATION SOCIAL HISTORY GENERAL: PAIN CLINIC PFS, CLERGY, PUBLIC HEALTH REFERRALS CLERGY REFERRAL NEEDED?NO WAS THE PROVIDER NOTIFIED OF ANY PERTINENT INFO?NO PFS REFERRAL NEEDED?NO PUBLIC HEALTH REFERRAL NEEDED?NO PATIENT: ____. REVIEW OF SYSTEMS CONSTITUTIONAL: ANY CHANGE IN YOUR MEDICAL CONDITION? YES FOOT SURGERY AT [facility] DR[facility] FRANCO'S FOR INGROWN TOENAIL END OF NOVEMBER&NBSP;. CHILLS &NBSP;&NBSP; NO&NBSP;. FEVER &NBSP;&NBSP; NO&NBSP;. INFECTION: DO YOU HAVE NEW INFECTIONS? NO . DO YOU HAVE HISTORY OF MRSA? NO . MUSCULOSKELETAL: ANY NEW PATTERNS OF PAIN OR NUMBNESS? NO . GASTROENTEROLOGY: GENERAL SIGNIFICANT CONSTIPATION. COMP WILL NOT APPROVE MOVANTIK. . ANY NEW CHANGE IN BOWEL CONTROL? NO . GENITOURINARY: ANY NEW CHANGE IN BLADDER CONTROL? NO . IS THERE A CHANCE YOU COULD BE ? NO . HEMATOLOGY/LYMPH: DO YOU TAKE ANY BLOOD THINNERS? (FOR EXAMPLE- COUMADIN, PLAVIX, AGGRENOX, PLATEL, PRADAXA, OR XARELTO) NO . WHEN WAS YOUR LAST DOSE? DATE: TIME: . NEUROLOGY: HAVE YOU FALLEN IN THE PAST 6 MONTHS? NO . ANY NEW EXTREMITY NUMBNESS OR WEAKNESS? NO . CARDIOLOGY: DO YOU HAVE A PACEMAKER OR DEFIBRILLATOR? YES AICD REPLACED 4/5 . RESPIRATORY: HAVE YOU BEEN SICK IN THE PAST WEEK? NO . FEVER NO . FLU LIKE SYMPTOMS? NO . COUGH NO . INTEGUMENTARY: DO YOU HAVE ANY RASHES OR OPEN SORES? NO . ALLERGIC/IMMUNO: ARE YOU ALLERGIC TO SHELLFISH OR IV DYE? NO . ANY NEW ALLERGIES? NO . PSYCHIATRIC: DO YOU HAVE THOUGHTS OF HURTING YOURSELF OR SOMEONE ELSE? NO . ARE YOU ABUSED, NEGLECTED, OR IN AN UNSAFE ENVIRONMENT? NO . ENDOCRINOLOGY: ARE YOU DIABETIC? YES BLOOD SUGARS 100 OR LESS . OTHER: DO YOU NEED ANY PRESCRIPTIONS? NO . IF YES, PLEASE LIST: ____ . ANY NEW PROBLEMS WITH YOUR MEDICATIONS? NO . WHEN DID YOU LAST EAT? ____ . WHEN DID YOU LAST DRINK? ____ . WHAT DID YOU LAST DRINK? ____ . NAME OF PERSON DRIVING YOU HOME? ____ . DO YOU HAVE ANY OTHER QUESTIONS OR CONCERNS YES YASMEEN HAS NOT BEEN AUTHORIZED BY WORKMAN'S COMP YET&NBSP;. REVIEWED BY: PROVIDER: CELINA CONTRERAS . VITAL SIGNS WT 256.8 LBS, HT 72 IN, BMI 34.82 INDEX, BP 114/56 MM HG, HR 83 /MIN, RR 18 /MIN, TEMP 98.7 F, OXYGEN SAT % 94%, SAFE IN ENV? (Y/N) YES, NA INITIALS AW 1013, REVIEWED BY: CAITIE. EXAMINATION GENERAL EXAMINATION: PSYCHALERT , ORIENTED X 3 , APPROPRIATE MOOD AND AFFECT , APPEARS UNCOMFORTABLE. LUNGS:CLEAR TO AUSCULTATION BILATERALLY - NOTES THORACIC CHEST WAL PAIN WITH TAKING A DEEP BREATH. HEART:HEART RATE REGULAR. MUSCULOSKELETAL:PRODUCTION AIDE STRENGTH EQUAL AND STRONG. DECREASE WITH NECK FLEXION/EXTENSION, ROTATION. ,POINT TENDERNESS OVER THORACIC SPINOUS PROCESSES AT THE T6-7, T7-8 AND T8-9 LEVELS. BILATERAL TENDERNESS OVER THOACIC PARAVERTEBRAL MUSCLES. REPORTS INCREASE IN THORACIC PAIN WITH THORACIC FLEXION, EXTENSION AND ROTATION. SLOW TO RISE TO STANDING POSITION. POSTURE IS SLOUCHED. NEUROLOGIC EXAM:CN'S II-XII GROSSLY INTACT. EOM'S INTACT WITHOUT NYSTAGMUS. SPEACH NON DYSARTHRIC.. 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 CLINICAL NOTES: ISTOP REGISTRY REVIEWED AND DEMNOSTRATES COMPLLIANCE. BRINGS IN MEDICATIONS WHICH IS APPROPRIATE FOR WHAT WAS DISPENSED. RECENT URINE TOXICOLOGY REVIEWED. NO UNAUTHORIZED MEDICATIONS. NO ILLICIT SUBSTANCES AND PRESCRIBED MEDICATIONS WERE PRESENT. PROCEDURES PN WORKMANS' COMP OPINION IN YOUR OPINION, WAS THE INCIDENT THAT THE PATIENT DESCRIBED THE COMPETENT MEDICAL CAUSE OF THIS INJURY/ILLNESS? YES ARE THE PATIENT'S COMPLAINTS CONSISTENT WITH HIS/HER HISTORY OF THE INJURY/ILLNESS? YES IS THE PATIENT'S HISTORY OF THE INJURY/ILLNESS CONSISTENT WITH YOUR OBJECTIVE FINDING? YES WHAT IS THE PERCENTAGE OF TEMPORARY IMPAIRMENT? MODERATE TO MARKED = 66.7% IS THE PATIENT WORKING? NO DOCTOR ON SITE: THELMA NUNEZ MD PROCEDURE CODES FA211 ESTABILISHED PATIENT [facility] CHARGE DISPOSITION & COMMUNICATION FOLLOW UP REASON: WC CHECK AUTH FOR THORACIC YING ELECTRONICALLY SIGNED BY ESCOBAR VALENTIN ON 01/07/2017 AT 01:18 PM EDT DISCLAIMER : THIS IS A VISIT SUMMARY EXTRACTED FROM THE [employer] CHART. IT IS NOT A COPY OF THE [employer] PROGRESS NOTE. JULIETA
== END ==
LOC: M PAIN 10:00
PROVIDERS: ATTEND Nurse Practitioner Family
DX: Z09 Encounter for follow-up examination after completed treatment for conditions other than malignant neoplasm (principal); G89.29 Other chronic pain; M79.1 Myalgia; M54.14 Radiculopathy, thoracic region; M51.24 Other intervertebral disc displacement, thoracic region; E11.9 Type 2 diabetes mellitus without complications; J44.9 Chronic obstructive pulmonary disease, unspecified; I50.9 Heart failure, unspecified; E78.5 Hyperlipidemia, unspecified; I10 Essential (primary) hypertension; K21.9 Gastro-esophageal reflux disease without esophagitis; E66.9 Obesity, unspecified; Z68.34 Body mass index [BMI] 34.0-34.9, adult; R42 Dizziness and giddiness; Z91.048 Other nonmedicinal substance allergy status; Z91.018 Allergy to other foods; Z88.6 Allergy status to analgesic agent; Z88.8 Allergy status to other drugs, medicaments and biological substances; Z79.82 Long term (current) use of aspirin; Z79.84 Long term (current) use of oral hypoglycemic drugs; Z79.891 Long term (current) use of opiate analgesic; Z79.899 Other long term (current) drug therapy; Z95.810 Presence of automatic (implantable) cardiac defibrillator

== ENCOUNTER → 2017-02-08 | Outpatient (CLI) | payer OTHER ==
[~2017-02-08] MED LIST changes: +ISOVUE-M 300 61% 15ML VIAL (Q9967) As Ordered ONE; +LIDOCAINE 1% SDV INJ 30 ML VIAL As Ordered ONE; +methylPREDNISolone SUSP 40 MG/ML (DEPO-medrol) VIAL (J1030) As Ordered ONE
--- NOTE | 2017-02-08 12:17 | REP ---
Partial thoracic spine series: Limited study, three views. History: Injection procedure for pain. 34 seconds of fluoroscopy time is reported. Findings: A sequence of three fluoroscopically obtained intraprocedural spot radiographs of the thoracic spine document needle position and contrast injection associated with thoracic epidural injection procedure. Signed by Lele Mcrae MD 02/08/2017 12:27 P
--- NOTE | 2017-02-17 23:53 | ECWPNPC ---
PATIENT NAME: CAMILO ARMSTRONG : 1960 GENDER: MALE VISIT DATE: 02/08/2017 DISCHARGE DATE: 02/08/17 1233 VISIT LOCKED DATE TIME: PHYSICIAN: THELMA BHARDWAJ PHYSICIAN PAGER NO: TEXT TO [phone] RESOURCE: THELMA BHARDWAJ REASON FOR APPOINTMENT 1. TPI HISTORY OF PRESENT ILLNESS HISTORY OF PRESENT ILLNESS: PAIN THE PATIENT DESCRIBES THE PAIN... FALL RISK SCREENING: SCREENING :NO FALLS IN THE PAST YEAR CURRENT MEDICATIONS TAKING LISINOPRIL 2.5MG TABLET 1 TAB ORALLY AT BEDTIME, NOTES: 02/07/172199 TAKING COREG 12.5MG TABLET 1 TAB ORALLY TWICE DAILY, NOTES: 02/08/17629 TAKING ASPIRIN 81 MG TABLET DELAYED RELEASE 1 TAB ORALLY DAILY, NOTES: 02/07/172199 TAKING LIPITOR 80 MG TABLET 1 TABLET ORALLY ONCE A DAY AT BEDTIME, NOTES: 02/07/171999 TAKING ADVAIR DISKUS 250-50 MCG/DOSE MISCELLANEOUS 1 INHALATION. ALWAYS RINSE YOUR MOUTH OUT AFTER USE DAILY, NOTES: 02/07/17799 TAKING VENTOLIN HFA 108 (90 BASE) MCG/ACT AEROSOL SOLUTION 2 PUFFS INHALATION EVERY 4-6 HOURS NEEDED, NOTES: NONE RECENT TAKING ALDACTONE 25 MG TABLET 1 TAB ORALLY DAILY, NOTES: 02/07/172199 TAKING LASIX 40 MG TABLET 1 TAB ORALLY DAILY NEEDED, NOTES: NONENONE RECENT TAKING MECLIZINE HCL 25 MG TABLET 1 TABLET ORALLY 1-2 TIMES DAILY NEEDED, NOTES: 02/08/17629 TAKING METFORMIN HCL 500 MG TABLET 1 TABLET WITH MEALS IN AM, 2 TABS IN THE PM ORALLY 500MG AM, 1000MG AT BEDTIME, NOTES: 02/07/172099 TAKING OMEPRAZOLE 40 MG CAPSULE DELAYED RELEASE 1 CAPSULE ORALLY TWICE A DAY, NOTES: 02/08/17629 TAKING OXYBUTYNIN CHLORIDE ER 5 MG TABLET EXTENDED RELEASE 24 HOUR DIRECTED ORALLY DAILY, NOTES: 02/08/17629 TAKING KETOCONAZOLE 2 % CREAM 1 APPLICATION TO AFFECTED AREA EXTERNALLY ONCE A DAY, NOTES: NONE RECENT TAKING NASACORT AQ 55 MCG/ACT AEROSOL 1 PUFF IN EACH NOSTRIL NASALLY ONCE A DAY, NOTES: 02/07/17 08 TAKING NITROSTAT 0.4 MG TABLET SUBLINGUAL 1 TAB SUBLINGUAL TAB1 TAB FOR CHEST PAIN IF NO RELIEF IN 5 MINUTES TAKE 2ND NITRO IF NO RELIEF AFTER 5 MINUTES TAKE 3RD NITRO ER, NOTES: NONE RECENT TAKING VITAMIN D3 2000 UNITS TABLET 1 TAB ORALLY ONCE A DAY, NOTES: 02/07/172199 TAKING MIRALAX 17 GM POWDER 17GM ORALLY DAILY NEEDED, NOTES: NONE RECENT TAKING MAGNESIUM 64 MG CAPSULE 1 TAB ORALLY TWICE A DAY, NOTES: 02/08/17629 TAKING CLOBETASOL PROPIONATE 0.05 % CREAM 1 APPLICATION TO RECTAL AREA EXTERNALLY TWICE A DAY NEEDED, NOTES: NONE RECENT TAKING ZONISAMIDE 50 MG CAPSULE 1 CAP ORALLY ONCE DAILY, NOTES: 02/07/172199 TAKING TRAMADOL HCL ER 100 MG TABLET EXTENDED RELEASE 24 HOUR 1 TABLET ORALLY ONCE A DAY MDD=1, NOTES: 02/08/17629 TAKING TAMSULOSIN HCL 0.4 MG CAPSULE 1 CAPSULE 30 MINUTES AFTER THE SAME MEAL EACH DAY ORALLY ONCE A DAY, NOTES: 02/07/172199 TAKING CYMBALTA 30 MG CAPSULE DELAYED RELEASE PARTICLES 1 CAPSULE ORALLY ONCE A DAY, NOTES: 02/07/172199 TAKING SKELAXIN 800 MG TABLET 1 TABLET ORALLY FOUR TIMES DAY WORKMEN COMP, NOTES: 02/08/17899 TAKING AVODART 0.5 MG CAPSULE 1 CAPSULE ORALLY ONCE A DAY, NOTES: 02/07/172199 TAKING COLACE 100 MG CAPSULE 1 CAPSULE NEEDED ORALLY TWICE DAILY, NOTES: 02/08/17629 TAKING ZYRTEC 10 MG TABLET 1 TABLET ORALLY ONCE A DAY, NOTES: 02/07/172199 TAKING GABAPENTIN 300 MG CAPSULE 1 CAPSULE ORALLY THREE TIMES A DAY, NOTES: 02/08/17899 TAKING MOVANTIK 25 MG TABLET 1 TABLET IN THE MORNING ORALLY ONCE A DAY, NOTES: 12/02/2016 WAITING ON PRIOR AUTH TAKING DRISDOL 00176 UNIT CAPSULE 1 CAPSULE ORALLY ONCE WEEKLY FOR 10 WEEKS, NOTES: 02/05/17 TAKING LEVOTHYROXINE SODIUM 25 MCG TABLET 1 TABLET ON AN EMPTY STOMACH IN THE MORNING ORALLY ONCE A DAY, NOTES: 02/08/17629 TAKING DETROL 2 MG TABLET 1 TABLET ORALLY TWICE A DAY, NOTES: 02/08/17629 TAKING PERCOCET 5-325 MG TABLET 1 TABLET ORALLY Q 4 HRS PRN PAIN MDD=5, NOTES: 02/08/17899 NOT-TAKING ONE TOUCH/ONE TOUCH II STARTER 1 EA 250.02 VITRO DAILY UNKNOWN MULTIVITAMINS 1 TABLET DIRECTED ORALLY DAILY, NOTES: 09-07-16 0700 UNKNOWN ALCOHOL PREP PAD 70 % PAD DIRECTED EXTERNALLY TID PRN DX: 250.02 UNKNOWN ONE TOUCH ULTRA 2 LANCET ONE TOUCH ULTRA MINI LANCETS DIRECTED TOP QID AND PRN DX 250.00 UNKNOWN ONE TOUCH ULTRA 2 STRIPS ONE TOUCH ULTRA MINI STRIPS DIRECTED TOP QID AND PRN DX 250.00 MEDICATION LIST REVIEWED AND RECONCILED WITH THE PATIENT PAST MEDICAL HISTORY COPD- SPIROMETRY- 02/05/14- DECLINES AT THIS TIME CHF (SYSTOLIC AND DIASTOLIC)- CANNY HYPERLIPIDEMIA HYPERTENSION GERD CHRONIC LOW BACK PAIN- W COMP- DR BOJORQUEZ- CHRONIC PAIN MEDS PER [facility] PAIN MANAGEMENT. CHRONIC RT KNEE PAIN VERTIGO (SINCE 1990) OBESITY H/O HEAVY ALCOHOL USE (IN REMISSION) ASCVD 10-YEAR RISK IS 3.6% IN HTE COLONOSCOPY 2009 ALLERGIES RED DYE: RASH TOMATO: NAUSEA/VOMITING: ALLERGY FINASTERIDE: FLARED CHF: CONTRAINDICATION NSAIDS: CONGESTIVE FAILURE: CONTRAINDICATION VOLTAREN: GEL/ SPASMS/PAIN: ALLERGY LYRICA: CONTRAINDICATION SURGICAL HISTORY NO PERSONAL OR FHX SEVERE REACTION TO ANESTHESIA R HUMERUS FIXATION 1972 R MEDIAL MENISCECTOMY 1981 DRAINAGE OF R NECK ? PERITONSILAR ABSCESS 1996 S/P AICD PLACMENT 2007 L4-S1 SPINAL DECOMPRESSION WITH INSTRUMENTED POSTERIOR AND INTERBODY FUSION. DUROTOMY REPAIR. ([facility] @ [facility]) 03/2011 EGD-REINDL NML 03/13/10 COLONOSCOPY- REINDL. DIVERTICULOSIS- REPEAT 5-10 YEARS 03/13/10 RIGHT KNEE SURGERY BY ORTHO 02/05 NEW ICD 12/29/16 HOSPITALIZATION/MAJOR DIAGNOSTIC PROCEDURE CHF 2008 DOG BITE 01/2015 REVIEW OF SYSTEMS CONSTITUTIONAL: ANY CHANGE IN YOUR MEDICAL CONDITION? NO . CHILLS NO . FEVER NO . INFECTION: DO YOU HAVE NEW INFECTIONS? NO . DO YOU HAVE HISTORY OF MRSA? NO . MUSCULOSKELETAL: ANY NEW PATTERNS OF PAIN OR NUMBNESS? NO . GASTROENTEROLOGY: ANY NEW CHANGE IN BOWEL CONTROL? NO . GENITOURINARY: ANY NEW CHANGE IN BLADDER CONTROL? NO . IS THERE A CHANCE YOU COULD BE ? NO . HEMATOLOGY/LYMPH: DO YOU TAKE ANY BLOOD THINNERS? (FOR EXAMPLE- COUMADIN, PLAVIX, AGGRENOX, PLATEL, PRADAXA, OR XARELTO) NO . WHEN WAS YOUR LAST DOSE? DATE: TIME: . NEUROLOGY: HAVE YOU FALLEN IN THE PAST 6 MONTHS? NO . ANY NEW EXTREMITY NUMBNESS OR WEAKNESS? NO . RESPIRATORY: HAVE YOU BEEN SICK IN THE PAST WEEK? NO . FEVER NO . FLU LIKE SYMPTOMS? NO . COUGH NO . INTEGUMENTARY: DO YOU HAVE ANY RASHES OR OPEN SORES? NO . ALLERGIC/IMMUNO: ARE YOU ALLERGIC TO SHELLFISH OR IV DYE? NO . ANY NEW ALLERGIES? NO . PSYCHIATRIC: DO YOU HAVE THOUGHTS OF HURTING YOURSELF OR SOMEONE ELSE? NO . ARE YOU ABUSED, NEGLECTED, OR IN AN UNSAFE ENVIRONMENT? NO . ENDOCRINOLOGY: ARE YOU DIABETIC? YES FSBS 121 @ 0830 . OTHER: DO YOU NEED ANY PRESCRIPTIONS? NO . IF YES, PLEASE LIST: ____ . ANY NEW PROBLEMS WITH YOUR MEDICATIONS? NO . WHEN DID YOU LAST EAT? 02/07/171999 . WHEN DID YOU LAST DRINK? 02/08/17 0900 . WHAT DID YOU LAST DRINK? WATER . NAME OF PERSON DRIVING YOU HOME? ____ . DO YOU HAVE ANY OTHER QUESTIONS OR CONCERNS HAS AICD . REVIEWED BY: PROVIDER: . VITAL SIGNS WT 252.2 LBS, HT 72 IN, BMI 34.20 INDEX, BP 127/67 MM HG, HR 80 /MIN, RR 18 /MIN, TEMP 97.3 F, OXYGEN SAT % 95%, NA INITIALS SC 11:07, REVIEWED BY: ANN MARIE. ASSESSMENTS INTERVERTEBRAL DISC DISORDERS WITH RADICULOPATHY, THORACIC REGION - M51.14 (PRIMARY) PROCEDURES PN THORACIC EPIDURAL PRE PROCEDURE DIAGNOSIS THORACIC RADICULOPATHY, THORACIC DISC DISORDER WITH RADICULOPATHY POST PROCEDURE DIAGNOSIS THORACIC RADICULOPATHY, THORACIC DISC DISORDER WITH RADICULOPATHY PROCEDURE THORACIC EPIDURAL STEROID INJECTION UNDER FLUOROSCOPIC GUIDANCE SURGEON DR. THELMA BHARDWAJ MEDICAL SCIENTIFIC LIAISON NONE ANESTHESIA LOCAL PRE PROCEDURE NOTE THE PATIENT HAS A HISTORY OF CHRONIC THORACIC PAIN. I EVALUATE THE PATIENT AND REVIEWED THE CHART. I WENT OVER THE RISKS, ALTERNATIVES, AND BENEFITS ASSOCIATED WITH THIS PROCEDURE. THE PATIENT WOULD LIKE TO PROCEED AND GIVE CONSENT TO PERFORMED THE PROCEDURE. THE PATIENT DENIES UNEXPLAINABLE WEIGHT LOSS, FEVER, CHILLS, OR NEW CHANGES IN URINARY OR BOWEL CONTROL. DESCRIPTION OF PROCEDURE THE PATIENT WAS BROUGHT TO THE PROCEDURE ROOM AND PLACED IN THE PRONE POSITION. THE THORACIC AREA WAS CLEANED WITH BETADINE SOLUTION AND DRAPED ASEPTICALLY. THE PROCEDURE WAS DONE UNDER STERILE CONDITIONS. I CHECKED LATERALITY AND THE LEVEL WHERE THE PROCEDURE WAS GOING TO BE PERFORMED WITH THE PATIENT AND THE SUPPORTING STAFF AT THE MOMENT OF THE TIME OUT IN THE PROCEDURE ROOM. UNDER FLUOROSCOPIC GUIDANCE, THE TARGET POINT WAS SELECTED AT THE INTERLAMINAR LEVEL OF T6-T7. LIDOCAINE WAS USED TO NUMB THE SKIN AND THE SUBCUTANEOUS TISSUE BELOW IT. EPIDURAL TUOHY NEEDLE, 17-GAUGE, WAS ADVANCED UNDER FLUOROSCOPIC GUIDANCE AND FOLLOWING PATIENT FEEDBACK UNTIL THE EPIDURAL SPACE WAS REACHED 6 CM DEEP INTO THE SKIN BY THE LOSS OF RESISTANCE TECHNIQUE. ISOVUE M DYE 30%, 0.25 ML, WAS INJECTED SHOWING ADEQUATE SPREAD OF THE DYE. THEN, A SOLUTION OF 3 ML OF NORMAL SALINE WITH DEPO-MEDROL 60 MG WAS INJECTED SLOWLY FOLLOWING PATIENT FEEDBACK. THERE WAS NO EVIDENCE OF BLOOD, PARESTHESIA OR CEREBROSPINAL FLUID DURING THE PROCEDURE. THE PATIENT WAS SENT TO THE RECOVERY ROOM. THE PATIENT WAS MOVING THE EXTREMITIES AND DOING WELL. THERE WAS NO COMPLICATION DURING THE PROCEDURE. FLUOROSCOPY TIME WAS 34 SECONDS POST PROCEDURE NOTE THE PATIENT WILL BE SEEN IN A FOLLOW UP IN THE NEXT FEW WEEKS. INSTRUCTIONS WERE GIVEN, QUESTIONS WERE ANSWERED, AND THE PATIENT EXPRESSED UNDERSTANDING AND AGREED WITH THE PLAN. I, JOVANY CALZADA, DOCUMENTED THE ABOVE INFORMATION ACTING A SCRIBE FOR DR. BHARDWAJ. I HAVE REVIEWED THE ABOVE DOCUMENT, WRITTEN BY JOVANY CALZADA SCRIBE AND I VERIFY THAT IT IS ACCURATE DIAGNOSTIC IMAGING [facility] FLUORO GUIDE SPINE INJECTION (PAIN)[id number] PROCEDURE CODES 59069 CERVICAL/THORACIC W/ IMAGING 6045F RADXPS IN END [id number] PXD DISPOSITION & COMMUNICATION FOLLOW UP 3 WEEKS ELECTRONICALLY SIGNED BY THELMA BHARDWAJ MD ON 02/17/2017 AT 08:01 PM EDT DISCLAIMER : THIS IS A VISIT SUMMARY EXTRACTED FROM THE [employer] CHART. IT IS NOT A COPY OF THE [employer] PROGRESS NOTE. MTDD
== END ==
LOC: M PAIN 11:00
PROVIDERS: ATTEND Anesthesiology
DX: M51.14 Intervertebral disc disorders with radiculopathy, thoracic region (principal); Z79.82 Long term (current) use of aspirin; Z79.899 Other long term (current) drug therapy; Z79.891 Long term (current) use of opiate analgesic; Z79.84 Long term (current) use of oral hypoglycemic drugs; E11.9 Type 2 diabetes mellitus without complications; I11.9 Hypertensive heart disease without heart failure; K21.9 Gastro-esophageal reflux disease without esophagitis; I50.9 Heart failure, unspecified; Z91.048 Other nonmedicinal substance allergy status; Z91.018 Allergy to other foods; Z88.8 Allergy status to other drugs, medicaments and biological substances

== ENCOUNTER → 2017-03-10 | Outpatient (CLI) | payer OTHER ==
[~2017-03-10] MED LIST changes: -ATOR1TAB18 PO; +ATOR80TA59 PO; -ISOVUE-M 300 61% 15ML VIAL (Q9967) As Ordered ONE; -LIDOCAINE 1% SDV INJ 30 ML VIAL As Ordered ONE; -OXYB5TA PO; +OXYB5TAB10 PO; +VOLT1GEL15 TD; -VOLT1GEL24 TD; -methylPREDNISolone SUSP 40 MG/ML (DEPO-medrol) VIAL (J1030) As Ordered ONE
--- NOTE | 2017-03-19 00:27 | ECWPNPC ---
PATIENT NAME: CAMILO ARMSTRONG : 1960 GENDER: MALE VISIT DATE: 03/10/2017 DISCHARGE DATE: 03/10/17 1739 VISIT LOCKED DATE TIME: PHYSICIAN: THELMA BHARDWAJ PHYSICIAN PAGER NO: [phone] RESOURCE: THELMA BHARDWAJ REASON FOR APPOINTMENT 1. NECK AND THORACIC BACK PAIN W/C HISTORY OF PRESENT ILLNESS HISTORY OF PRESENT ILLNESS: PAIN THE PATIENT DESCRIBES THE PAIN... 57 YEAR OLD MALE PATIENT WITH HISTORY OF CHRONIC NECK AND THORACIC BACK PAIN. PATIENT DESCRIBES THE PAIN ACHING, SHARP, STABBING, TENDER, THROBBING, SORE, SHOOTING AND HAVING IT ALL THE TIME WITH A PAIN SCORE OF 8/10. PATIENT WAS HURT IN A WORK RELATED INJURY ON 01/31/1985 WHILE WORKING AT [employer] A [employer]. PATIENT WAS PULLING A TRANNY OUT OF A TRUCK AND THE TRANNY FELL ON THE PATIENT. PATIENT STATES THAT PHYSICAL THERAPY DOES NOT AID IN PAIN RELIEF. PATIENT RECEIVED A THORACIC EPIDURAL ON 02/07/17 AND STATES THAT THE INJECTION DID NOT HELP WELL THE PREVIOUS INJECTION BUT STILL HAD OVER 50% RELIEF FROM THE INJECTION 4 WEEKS BUT THE PAIN IS STARTING TO RETURN. PATIENT STATES THAT ANY TYPE OF ACTIVITY INCREASES THE PAIN IN HIS NECK AND BACK. PATIENT DENIES UNEXPLAINABLE WEIGHT LOSS, FEVER, CHILLS, NEW CHANGES ON HIS URINARY OR BOWEL CONTROL. FALL RISK SCREENING: SCREENING :NO FALLS IN THE PAST YEAR CURRENT MEDICATIONS TAKING LISINOPRIL 2.5MG TABLET 1 TAB ORALLY AT BEDTIME TAKING COREG 12.5MG TABLET 1 TAB ORALLY TWICE DAILY TAKING ASPIRIN 81 MG TABLET DELAYED RELEASE 1 TAB ORALLY DAILY TAKING LIPITOR 80 MG TABLET 1 TABLET ORALLY ONCE A DAY AT BEDTIME TAKING ADVAIR DISKUS 250-50 MCG/DOSE MISCELLANEOUS 1 INHALATION. ALWAYS RINSE YOUR MOUTH OUT AFTER USE DAILY TAKING VENTOLIN HFA 108 (90 BASE) MCG/ACT AEROSOL SOLUTION 2 PUFFS INHALATION EVERY 4-6 HOURS NEEDED TAKING ALDACTONE 25 MG TABLET 1 TAB ORALLY DAILY TAKING LASIX 40 MG TABLET 1 TAB ORALLY DAILY NEEDED TAKING MECLIZINE HCL 25 MG TABLET 1 TABLET ORALLY 1-2 TIMES DAILY NEEDED TAKING METFORMIN HCL 500 MG TABLET 1 TABLET WITH MEALS IN AM, 2 TABS IN THE PM ORALLY 500MG AM, 1000MG AT BEDTIME TAKING OMEPRAZOLE 40 MG CAPSULE DELAYED RELEASE 1 CAPSULE ORALLY TWICE A DAY TAKING OXYBUTYNIN CHLORIDE ER 5 MG TABLET EXTENDED RELEASE 24 HOUR DIRECTED ORALLY DAILY TAKING KETOCONAZOLE 2 % CREAM 1 APPLICATION TO AFFECTED AREA EXTERNALLY ONCE A DAY TAKING NASACORT AQ 55 MCG/ACT AEROSOL 1 PUFF IN EACH NOSTRIL NASALLY ONCE A DAY TAKING NITROSTAT 0.4 MG TABLET SUBLINGUAL 1 TAB SUBLINGUAL TAB1 TAB FOR CHEST PAIN IF NO RELIEF IN 5 MINUTES TAKE 2ND NITRO IF NO RELIEF AFTER 5 MINUTES TAKE 3RD NITRO ER TAKING VITAMIN D3 2000 UNITS TABLET 1 TAB ORALLY ONCE A DAY TAKING MIRALAX 17 GM POWDER 17GM ORALLY DAILY NEEDED TAKING MAGNESIUM 64 MG CAPSULE 1 TAB ORALLY TWICE A DAY TAKING CLOBETASOL PROPIONATE 0.05 % CREAM 1 APPLICATION TO RECTAL AREA EXTERNALLY TWICE A DAY NEEDED TAKING ZONISAMIDE 50 MG CAPSULE 1 CAP ORALLY ONCE DAILY TAKING TAMSULOSIN HCL 0.4 MG CAPSULE 1 CAPSULE 30 MINUTES AFTER THE SAME MEAL EACH DAY ORALLY ONCE A DAY TAKING CYMBALTA 30 MG CAPSULE DELAYED RELEASE PARTICLES 1 CAPSULE ORALLY ONCE A DAY TAKING COLACE 100 MG CAPSULE 1 CAPSULE NEEDED ORALLY TWICE DAILY TAKING ZYRTEC 10 MG TABLET 1 TABLET ORALLY ONCE A DAY TAKING GABAPENTIN 300 MG CAPSULE 1 CAPSULE ORALLY THREE TIMES A DAY TAKING MOVANTIK 25 MG TABLET 1 TABLET IN THE MORNING ORALLY ONCE A DAY TAKING DRISDOL 58319 UNIT CAPSULE 1 CAPSULE ORALLY ONCE WEEKLY FOR 10 WEEKS TAKING LEVOTHYROXINE SODIUM 25 MCG TABLET 1 TABLET ON AN EMPTY STOMACH IN THE MORNING ORALLY ONCE A DAY TAKING DETROL 2 MG TABLET 1 TABLET ORALLY TWICE A DAY TAKING TRAMADOL HCL ER 100 MG TABLET EXTENDED RELEASE 24 HOUR 1 TABLET ORALLY ONCE A DAY MDD=1 TAKING SKELAXIN 800 MG TABLET 1 TABLET ORALLY FOUR TIMES DAY WORKMEN COMP TAKING PERCOCET 5-325 MG TABLET 1 TABLET ORALLY Q 4 HRS PRN PAIN MDD=5 TAKING AVODART 0.5 MG CAPSULE 1 CAPSULE ORALLY ONCE A DAY NOT-TAKING ONE TOUCH/ONE TOUCH II STARTER 1 EA 250.02 VITRO DAILY UNKNOWN MULTIVITAMINS 1 TABLET DIRECTED ORALLY DAILY, NOTES: 09-07-16 0700 UNKNOWN ALCOHOL PREP PAD 70 % PAD DIRECTED EXTERNALLY TID PRN DX: 250.02 UNKNOWN ONE TOUCH ULTRA 2 LANCET ONE TOUCH ULTRA MINI LANCETS DIRECTED TOP QID AND PRN DX 250.00 UNKNOWN ONE TOUCH ULTRA 2 STRIPS ONE TOUCH ULTRA MINI STRIPS DIRECTED TOP QID AND PRN DX 250.00 MEDICATION LIST REVIEWED AND RECONCILED WITH THE PATIENT PAST MEDICAL HISTORY COPD- SPIROMETRY- 02/05/14- DECLINES AT THIS TIME CHF (SYSTOLIC AND DIASTOLIC)- CANNY HYPERLIPIDEMIA HYPERTENSION GERD CHRONIC LOW BACK PAIN- W COMP- DR BOJORQUEZ- CHRONIC PAIN MEDS PER [facility] PAIN MANAGEMENT. CHRONIC RT KNEE PAIN VERTIGO (SINCE 1990) OBESITY H/O HEAVY ALCOHOL USE (IN REMISSION) ASCVD 10-YEAR RISK IS 3.6% IN HTE COLONOSCOPY 2009 ALLERGIES RED DYE: RASH TOMATO: NAUSEA/VOMITING: ALLERGY FINASTERIDE: FLARED CHF: CONTRAINDICATION NSAIDS: CONGESTIVE FAILURE: CONTRAINDICATION VOLTAREN: GEL/ SPASMS/PAIN: ALLERGY LYRICA: CONTRAINDICATION SURGICAL HISTORY NO PERSONAL OR FHX SEVERE REACTION TO ANESTHESIA R HUMERUS FIXATION 1972 R MEDIAL MENISCECTOMY 1981 DRAINAGE OF R NECK ? PERITONSILAR ABSCESS 1996 S/P AICD PLACMENT 2007 L4-S1 SPINAL DECOMPRESSION WITH INSTRUMENTED POSTERIOR AND INTERBODY FUSION. DUROTOMY REPAIR. (TIMOTHY @ [facility]) 03/2011 EGD-REINDL NML 03/13/10 COLONOSCOPY- REINDL. DIVERTICULOSIS- REPEAT 5-10 YEARS 03/13/10 RIGHT KNEE SURGERY BY ORTHO 02/05 NEW ICD 12/29/16 SOCIAL HISTORY GENERAL: TOBACCO USE ARE YOU A:NONSMOKER ALCOHOL SCREENING DID YOU HAVE A DRINK CONTAINING ALCOHOL IN THE PAST YEAR?NO POINTS0 INTERPRETATIONNEGATIVE CAFFEINE CAFFEINE USE?NO EXERCISE: WALKS. MARITAL STATUS: .. 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 HOSPITALIZATION/MAJOR DIAGNOSTIC PROCEDURE CHF 2008 DOG BITE 01/2015 REVIEW OF SYSTEMS REVIEWED BY: PROVIDER: . CONSTITUTIONAL: ANY CHANGE IN YOUR MEDICAL CONDITION? NO . CHILLS NO . FEVER NO . INFECTION: DO YOU HAVE NEW INFECTIONS? NO . DO YOU HAVE HISTORY OF MRSA? NO . MUSCULOSKELETAL: ANY NEW PATTERNS OF PAIN OR NUMBNESS? NO . GASTROENTEROLOGY: ANY NEW CHANGE IN BOWEL CONTROL? NO . GENITOURINARY: ANY NEW CHANGE IN BLADDER CONTROL? NO . IS THERE A CHANCE YOU COULD BE ? NO . HEMATOLOGY/LYMPH: DO YOU TAKE ANY BLOOD THINNERS? (FOR EXAMPLE- COUMADIN, PLAVIX, AGGRENOX, PLATEL, PRADAXA, OR XARELTO) NO . WHEN WAS YOUR LAST DOSE? DATE: TIME: . NEUROLOGY: HAVE YOU FALLEN IN THE PAST 6 MONTHS? NO . ANY NEW EXTREMITY NUMBNESS OR WEAKNESS? NO . CARDIOLOGY: DO YOU HAVE A PACEMAKER OR DEFIBRILLATOR? YES . RESPIRATORY: HAVE YOU BEEN SICK IN THE PAST WEEK? YES, SORE THROAT, NITERMITTENT COLD - GETTING BETTER NOW . FEVER NO . FLU LIKE SYMPTOMS? NO . COUGH NO . INTEGUMENTARY: DO YOU HAVE ANY RASHES OR OPEN SORES? NO . ALLERGIC/IMMUNO: ARE YOU ALLERGIC TO SHELLFISH OR IV DYE? NO . ANY NEW ALLERGIES? NO . PSYCHIATRIC: DO YOU HAVE THOUGHTS OF HURTING YOURSELF OR SOMEONE ELSE? NO . ARE YOU ABUSED, NEGLECTED, OR IN AN UNSAFE ENVIRONMENT? NO . ENDOCRINOLOGY: ARE YOU DIABETIC? YES . OTHER: DO YOU NEED ANY PRESCRIPTIONS? NO . IF YES, PLEASE LIST: ____ . ANY NEW PROBLEMS WITH YOUR MEDICATIONS? NO . WHEN DID YOU LAST EAT? ____ . WHEN DID YOU LAST DRINK? ____ . WHAT DID YOU LAST DRINK? ____ . NAME OF PERSON DRIVING YOU HOME? ____ . DO YOU HAVE ANY OTHER QUESTIONS OR CONCERNS NO . VITAL SIGNS WT 260 LBS, HT 72 IN, BMI 35.26 INDEX, BP 137/71 MM HG, HR 103 /MIN, RR 18 /MIN, TEMP 96.7 F, OXYGEN SAT % 94%, REVIEWED BY: GIL. EXAMINATION : PATIENT IS ALERT O X 3 AND COOPERATIVE. TENDERNESS IN THE THORACIC AREA AND PARASPINAL MUSCLE GROUP. CT OF THE THORACIC SPINE DONE ON 01/21/[address] OF THE CERVICAL SPINE DONE ON 05/03/16 SHOWS SPONDYLOSIS FROM C3-C4 THROUGH C7-T1 AND MULTIPLE DISC BULGES. 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 ARMSTRONG'S PAIN MANAGEMENT CASE AT THIS TIME. WE DISCUSSED SEVERAL INTERVENTIONS THAT MAY HELP THE PATIENT WITH PAIN MANAGEMENT. AFTER VIEWING THE PATIENTS THORACIC MRI AND WHERE THE PATIENT STATES HIS PAIN IS LOCATED I WOULD LIKE TO MOVE FORWARD WITH A THORACIC FACET BLOCK. WE DISCUSSED THE RISKS, BENEFITS, ALTERNATIVES OF THE INJECTION AND THE PATIENT WOULD LIKE TO PROCEED. INSTRUCTIONS WERE GIVEN, QUESTIONS WERE ANSWERED, PATIENT REPORTS UNDERSTANDING AND AGREES WITH THE PLAN. I, DIONISIO NGUYEN, DOCUMENTED THE ABOVE INFORMATION ACTING A SCRIBE FOR DR. BHARDWAJ. I HAVE REVIEWED THE ABOVE DOCUMENT, WRITTEN BY DIONISIO DANIBWillard AND I VERIFY THAT IT IS ACCURATE. PROCEDURES PN WORKMANS' COMP OPINION IN YOUR OPINION, WAS THE INCIDENT THAT THE PATIENT DESCRIBED THE COMPETENT MEDICAL CAUSE OF THIS INJURY/ILLNESS? YES ARE THE PATIENT'S COMPLAINTS CONSISTENT WITH HIS/HER HISTORY OF THE INJURY/ILLNESS? YES IS THE PATIENT'S HISTORY OF THE INJURY/ILLNESS CONSISTENT WITH YOUR OBJECTIVE FINDING? YES WHAT IS THE PERCENTAGE OF TEMPORARY IMPAIRMENT? MODERATE TO MARKED = 66.7% IS THE PATIENT WORKING? NO DOCTOR ON SITE: THELMA NUNEZ MD PROCEDURE CODES FA211 ESTABILISHED PATIENT [facility] FACILITY CHARGE G8427 DOC MEDS VERIFIED W/PT OR RE G8730 PAIN ASSESS POS TOOL F/U PLAN DOC DISPOSITION & COMMUNICATION FOLLOW UP TFBT AFTER APPROVAL ELECTRONICALLY SIGNED BY THELMA BHARDWAJ MD ON 03/18/2017 AT 08:21 AM EDT DISCLAIMER : THIS IS A VISIT SUMMARY EXTRACTED FROM THE [employer] CHART. IT IS NOT A COPY OF THE [employer] PROGRESS NOTE. JULIETA
== END ==
LOC: M PAIN 15:40
PROVIDERS: ATTEND Anesthesiology
DX: M47.814 Spondylosis without myelopathy or radiculopathy, thoracic region (principal); M47.815 Spondylosis without myelopathy or radiculopathy, thoracolumbar region; M54.2 Cervicalgia; M54.6 Pain in thoracic spine; G89.29 Other chronic pain; Z79.82 Long term (current) use of aspirin; Z79.84 Long term (current) use of oral hypoglycemic drugs; Z79.899 Other long term (current) drug therapy; Z79.891 Long term (current) use of opiate analgesic; Z88.8 Allergy status to other drugs, medicaments and biological substances; Z91.048 Other nonmedicinal substance allergy status; Z91.018 Allergy to other foods

== ENCOUNTER → 2017-03-10 | Outpatient (CLI) | payer OTHER ==
--- NOTE | 2017-03-19 00:28 | ECWPNPC ---
PATIENT NAME: CAMILO ARMSTRONG : 1960 GENDER: MALE VISIT DATE: 03/10/2017 DISCHARGE DATE: 03/10/17 1635 VISIT LOCKED DATE TIME: PHYSICIAN: THELMA BHARDWAJ PHYSICIAN PAGER NO: TEXT [employer] [phone] RESOURCE: THELMA BHARDWAJ REASON FOR APPOINTMENT 1. LOW BACK W/C ST INSURANCE HISTORY OF PRESENT ILLNESS HISTORY OF PRESENT ILLNESS: PAIN THE PATIENT DESCRIBES THE PAIN... 57 YEAR OLD MALE PATIENT WITH HISTORY OF CHRONIC LOW BACK PAIN. PATIENT DESCRIBES THE PAIN ACHING, SHARP, STABBING, TENDER, SORE AND HAVING IT ALL THE TIME WITH A PAIN SCORE OF 8/10. PATIENT WAS HURT IN A WORK RELATED INJURY ON 03/03/1995 WHILE WORKING AT [employer] A [employer]VAGE AND WAS GOING UP STAIRS AND SLIPPED AND FELL. PATIENT RECEIVED A BACK SURGERY IN 2010 AND STATES THAT IT DID AID IN PAIN RELIEF. MR. ARMSTRONG STATES THAT PHYSICAL THERAPY DID NOT AID IN PAIN RELIEF. CURRENTLY THE PATIENT IS USING PERCOCET, GABAPENTIN AND TRAMADOL AND STATES THAT THE MEDICATION AIDS IN PAIN RELIEF. FALL RISK SCREENING: SCREENING :NO FALLS IN THE PAST YEAR CURRENT MEDICATIONS TAKING LISINOPRIL 2.5MG TABLET 1 TAB ORALLY AT BEDTIME TAKING COREG 12.5MG TABLET 1 TAB ORALLY TWICE DAILY TAKING ASPIRIN 81 MG TABLET DELAYED RELEASE 1 TAB ORALLY DAILY TAKING LIPITOR 80 MG TABLET 1 TABLET ORALLY ONCE A DAY AT BEDTIME TAKING ADVAIR DISKUS 250-50 MCG/DOSE MISCELLANEOUS 1 INHALATION. ALWAYS RINSE YOUR MOUTH OUT AFTER USE DAILY TAKING VENTOLIN HFA 108 (90 BASE) MCG/ACT AEROSOL SOLUTION 2 PUFFS INHALATION EVERY 4-6 HOURS NEEDED TAKING ALDACTONE 25 MG TABLET 1 TAB ORALLY DAILY TAKING LASIX 40 MG TABLET 1 TAB ORALLY DAILY NEEDED TAKING MECLIZINE HCL 25 MG TABLET 1 TABLET ORALLY 1-2 TIMES DAILY NEEDED TAKING METFORMIN HCL 500 MG TABLET 1 TABLET WITH MEALS IN AM, 2 TABS IN THE PM ORALLY 500MG AM, 1000MG AT BEDTIME TAKING OMEPRAZOLE 40 MG CAPSULE DELAYED RELEASE 1 CAPSULE ORALLY TWICE A DAY TAKING OXYBUTYNIN CHLORIDE ER 5 MG TABLET EXTENDED RELEASE 24 HOUR DIRECTED ORALLY DAILY TAKING KETOCONAZOLE 2 % CREAM 1 APPLICATION TO AFFECTED AREA EXTERNALLY ONCE A DAY TAKING NASACORT AQ 55 MCG/ACT AEROSOL 1 PUFF IN EACH NOSTRIL NASALLY ONCE A DAY TAKING NITROSTAT 0.4 MG TABLET SUBLINGUAL 1 TAB SUBLINGUAL TAB1 TAB FOR CHEST PAIN IF NO RELIEF IN 5 MINUTES TAKE 2ND NITRO IF NO RELIEF AFTER 5 MINUTES TAKE 3RD NITRO ER, NOTES: NONE RECENT TAKING VITAMIN D3 2000 UNITS TABLET 1 TAB ORALLY ONCE A DAY TAKING MIRALAX 17 GM POWDER 17GM ORALLY DAILY NEEDED, NOTES: NONE RECENT TAKING MAGNESIUM 64 MG CAPSULE 1 TAB ORALLY TWICE A DAY TAKING CLOBETASOL PROPIONATE 0.05 % CREAM 1 APPLICATION TO RECTAL AREA EXTERNALLY TWICE A DAY NEEDED, NOTES: NONE RECENT TAKING ZONISAMIDE 50 MG CAPSULE 1 CAP ORALLY ONCE DAILY TAKING TAMSULOSIN HCL 0.4 MG CAPSULE 1 CAPSULE 30 MINUTES AFTER THE SAME MEAL EACH DAY ORALLY ONCE A DAY TAKING CYMBALTA 30 MG CAPSULE DELAYED RELEASE PARTICLES 1 CAPSULE ORALLY ONCE A DAY TAKING COLACE 100 MG CAPSULE 1 CAPSULE NEEDED ORALLY TWICE DAILY TAKING ZYRTEC 10 MG TABLET 1 TABLET ORALLY ONCE A DAY TAKING GABAPENTIN 300 MG CAPSULE 1 CAPSULE ORALLY THREE TIMES A DAY, NOTES: WEANING OFF NOW TAKING TWICE DAILY TAKING DRISDOL 49857 UNIT CAPSULE 1 CAPSULE ORALLY ONCE WEEKLY FOR 10 WEEKS TAKING LEVOTHYROXINE SODIUM 25 MCG TABLET 1 TABLET ON AN EMPTY STOMACH IN THE MORNING ORALLY ONCE A DAY TAKING DETROL 2 MG TABLET 1 TABLET ORALLY TWICE A DAY TAKING TRAMADOL HCL ER 100 MG TABLET EXTENDED RELEASE 24 HOUR 1 TABLET ORALLY ONCE A DAY MDD=1 TAKING SKELAXIN 800 MG TABLET 1 TABLET ORALLY FOUR TIMES DAY WORKMEN COMP TAKING PERCOCET 5-325 MG TABLET 1 TABLET ORALLY Q 4 HRS PRN PAIN MDD=5 TAKING AVODART 0.5 MG CAPSULE 1 CAPSULE ORALLY ONCE A DAY NOT-TAKING MOVANTIK 25 MG TABLET 1 TABLET IN THE MORNING ORALLY ONCE A DAY NOT-TAKING ONE TOUCH/ONE TOUCH II STARTER 1 EA 250.02 VITRO DAILY UNKNOWN MULTIVITAMINS 1 TABLET DIRECTED ORALLY DAILY, NOTES: 09-07-16 0700 UNKNOWN ALCOHOL PREP PAD 70 % PAD DIRECTED EXTERNALLY TID PRN DX: 250.02 UNKNOWN ONE TOUCH ULTRA 2 LANCET ONE TOUCH ULTRA MINI LANCETS DIRECTED TOP QID AND PRN DX 250.00 UNKNOWN ONE TOUCH ULTRA 2 STRIPS ONE TOUCH ULTRA MINI STRIPS DIRECTED TOP QID AND PRN DX 250.00 MEDICATION LIST REVIEWED AND RECONCILED WITH THE PATIENT PAST MEDICAL HISTORY COPD- SPIROMETRY- 02/05/14- DECLINES AT THIS TIME CHF (SYSTOLIC AND DIASTOLIC)- CANNY HYPERLIPIDEMIA HYPERTENSION GERD CHRONIC LOW BACK PAIN- W COMP- DR BOJORQUEZ- CHRONIC PAIN MEDS PER [facility] PAIN MANAGEMENT. CHRONIC RT KNEE PAIN VERTIGO (SINCE 1990) OBESITY H/O HEAVY ALCOHOL USE (IN REMISSION) ASCVD 10-YEAR RISK IS 3.6% IN HTE COLONOSCOPY 2009 ALLERGIES RED DYE: RASH TOMATO: NAUSEA/VOMITING: ALLERGY FINASTERIDE: FLARED CHF: CONTRAINDICATION NSAIDS: CONGESTIVE FAILURE: CONTRAINDICATION VOLTAREN: GEL/ SPASMS/PAIN: ALLERGY LYRICA: CONTRAINDICATION SURGICAL HISTORY NO PERSONAL OR FHX SEVERE REACTION TO ANESTHESIA R HUMERUS FIXATION 1972 R MEDIAL MENISCECTOMY 1981 DRAINAGE OF R NECK ? PERITONSILAR ABSCESS 1996 S/P AICD PLACMENT 2007 L4-S1 SPINAL DECOMPRESSION WITH INSTRUMENTED POSTERIOR AND INTERBODY FUSION. DUROTOMY REPAIR. (TIMOTHY @ [facility]) 03/2011 EGD-REINDL NML 03/13/10 COLONOSCOPY- REINDL. DIVERTICULOSIS- REPEAT 5-10 YEARS 03/13/10 RIGHT KNEE SURGERY BY ORTHO 02/05 NEW ICD 12/29/16 FAMILY HISTORY NO FAMILY HISTORY DOCUMENTED. SOCIAL HISTORY GENERAL: TOBACCO USE ARE YOU A:NONSMOKER ALCOHOL SCREENING DID YOU HAVE A DRINK CONTAINING ALCOHOL IN THE PAST YEAR?NO POINTS0 INTERPRETATIONNEGATIVE CAFFEINE CAFFEINE USE?NO EXERCISE: WALKS. MARITAL STATUS: .. [employer] [id number] L[employer] LANGUAGES SPOKEN:KAZAKH LEARNING BARRIERS / SPECIAL NEEDS CHANGE FROM LAST VISIT?NO BARRIERS TO LEARNING?NO HEARING IMPAIRED?NO VISION IMPAIRED?YES :CORRECTIVE LENSES COGNITIVELY IMPAIRED?NO READINESS TO LEARN?YES LEARNING PREFERENCES?NO LEARNING CAPABILITIES PRESENT?YES EMOTIONAL BARRIERS?NO SPECIAL DEVICES?NO FILM REPLACEMENT ORDERER NEEDED?NO PAIN CLINIC PFS, CLERGY, PUBLIC HEALTH REFERRALS CLERGY REFERRAL NEEDED?NO WAS THE PROVIDER NOTIFIED OF ANY PERTINENT INFO?NO PFS REFERRAL NEEDED?NO PUBLIC HEALTH REFERRAL NEEDED?NO PATIENT: ____. HOSPITALIZATION/MAJOR DIAGNOSTIC PROCEDURE CHF 2008 DOG BITE 01/2015 REVIEW OF SYSTEMS REVIEWED BY: PROVIDER: . CONSTITUTIONAL: ANY CHANGE IN YOUR MEDICAL CONDITION? NO . CHILLS NO . FEVER NO . INFECTION: DO YOU HAVE NEW INFECTIONS? NO . DO YOU HAVE HISTORY OF MRSA? NO . MUSCULOSKELETAL: ANY NEW PATTERNS OF PAIN OR NUMBNESS? NO . GASTROENTEROLOGY: ANY NEW CHANGE IN BOWEL CONTROL? NO . GENITOURINARY: ANY NEW CHANGE IN BLADDER CONTROL? NO . IS THERE A CHANCE YOU COULD BE ? NO . HEMATOLOGY/LYMPH: DO YOU TAKE ANY BLOOD THINNERS? (FOR EXAMPLE- COUMADIN, PLAVIX, AGGRENOX, PLATEL, PRADAXA, OR XARELTO) NO . WHEN WAS YOUR LAST DOSE? DATE: TIME: . NEUROLOGY: HAVE YOU FALLEN IN THE PAST 6 MONTHS? NO . ANY NEW EXTREMITY NUMBNESS OR WEAKNESS? NO . CARDIOLOGY: DO YOU HAVE A PACEMAKER OR DEFIBRILLATOR? YES, PACEMAKER, DEFIBRILLATOR . RESPIRATORY: HAVE YOU BEEN SICK IN THE PAST WEEK? YES, SORE THROAT . FEVER NO . FLU LIKE SYMPTOMS? NO . COUGH NO . INTEGUMENTARY: DO YOU HAVE ANY RASHES OR OPEN SORES? NO . ALLERGIC/IMMUNO: ARE YOU ALLERGIC TO SHELLFISH OR IV DYE? NO . ANY NEW ALLERGIES? NO . PSYCHIATRIC: DO YOU HAVE THOUGHTS OF HURTING YOURSELF OR SOMEONE ELSE? NO . ARE YOU ABUSED, NEGLECTED, OR IN AN UNSAFE ENVIRONMENT? NO . ENDOCRINOLOGY: ARE YOU DIABETIC? YES . OTHER: DO YOU NEED ANY PRESCRIPTIONS? NO . ANY NEW PROBLEMS WITH YOUR MEDICATIONS? YES, CYMBALTA AND GABAPENTIN MAKING REAL SLEEPY. IS BEING WEANED OFF GABAPENTIN. . WHEN DID YOU LAST EAT? ____ . WHEN DID YOU LAST DRINK? ____ . WHAT DID YOU LAST DRINK? ____ . NAME OF PERSON DRIVING YOU HOME? ____ . DO YOU HAVE ANY OTHER QUESTIONS OR CONCERNS NO . VITAL SIGNS WT 260.0 LBS, HT 72 IN, BMI 35.26 INDEX, BP 137/71 MM HG, HR 103 /MIN, RR 18 /MIN, TEMP 96.7 F, OXYGEN SAT % 94%, NA INITIALS TL 1508, REVIEWED BY: CLARE. EXAMINATION : PATIENT IS ALERT O X 3 AND COOPERATIVE. TENDERNESS IN THE LOWER BACK AND PARASPINAL MUSCLE GROUP. ANTALGIC GAIT. PATIENT ABLE TO BEND 45 DEGREES AND EXTEND 10 DEGREES. PATIENT HAS SCAR ROUGHLY 4 INCHES LONG. BANDS OF TISSUE, RESTRICTION OF MOVING AND PRESENCE OF TRIGGER POINTS IN THE LOWER BACK AREA. LEFT LEG IS WEAKER THEN THE RIGHT AT EXTENSION AND FLEXION. MRI DONE ON 04/13/16 OF THE LUMBAR SPINE SHOWS POST LAMINECTOMY CHANCES AND A DISC BULGE AT L3-L4. ASSESSMENTS POSTLAMINECTOMY SYNDROME, NOT ELSEWHERE CLASSIFIED - M96.1 (PRIMARY) MYALGIA - M79.1 TREATMENT POSTLAMINECTOMY SYNDROME, NOT ELSEWHERE CLASSIFIED NOTES: WE DICUSSED SEVERAL ISSUES WITH MR. ARMSTRONG'S PAIN MANAGEMENT CASE. AT THIS TIME THE PATIENT WILL CONTINUE WITH THE SAME MEDICATION REGIME BEFORE. PATIENT IS USING THE PERCOCET FOR THE SOMATIC PAIN, MELOXICAM AND TIZANIDINE FOR THE MUSCLE SPASMS AND TIGHTNESS. PATIENT DENIES ABUSE TO ANY MEDICATION, DENIES USE OF ANY ILLEGAL SUBSTANCES, AND STATES HE IS ONLY USING THE MEDICATION FOR PAIN MANAGEMENT. URINE TOXICOLOGY DONE ON 01/10/16 SHOWS CONSISTENT RESULTS WITH THE PATIENTS MEDICATION LIST. DUE TO THE MUSCLE SPASMS AND SPASTICITY IN THE PATIENTS BACK I WOULD LIKE TO MOVE FORWARD WITH TRIGGER POINT INJECTIONS. WE DISCUSSED THE RISKS, BENENFITS, AND ALTNERATIVES OF THE INJECTION AND THE PATIENT WOULD LIKE TO PROCEED AT THIS TIME. INSTRUCTIONS WERE GIVEN, QUESTIONS WERE ANSWERED, PATIENT REPORTS UNDERSTANDING AND AGREES WITH THE PLAN. I, DIONISIO NGUYEN, DOCUMENTED THE ABOVE INFORMATION ACTING A SCRIBE FOR DR. BHARDWAJ. I HAVE REVIEWED THE ABOVE DOCUMENT, WRITTEN BY DIONISIO DEE AND I VERIFY THAT IT IS ACCURATE. OTHERS REFILL PERCOCET TABLET, 5-325 MG, 1 TABLET, ORALLY, Q 4 HRS PRN PAIN MDD=5, 30 DAY(S), 150, REFILLS 0 PROCEDURES PN WORKMANS' COMP OPINION IN YOUR OPINION, WAS THE INCIDENT THAT THE PATIENT DESCRIBED THE COMPETENT MEDICAL CAUSE OF THIS INJURY/ILLNESS? YES ARE THE PATIENT'S COMPLAINTS CONSISTENT WITH HIS/HER HISTORY OF THE INJURY/ILLNESS? YES IS THE PATIENT'S HISTORY OF THE INJURY/ILLNESS CONSISTENT WITH YOUR OBJECTIVE FINDING? YES WHAT IS THE PERCENTAGE OF TEMPORARY IMPAIRMENT? MODERATE TO MARKED = 66.7% IS THE PATIENT WORKING? NO DOCTOR ON SITE: THELMA NUNEZ MD PROCEDURE CODES FA211 ESTABILISHED PATIENT [facility] FACILITY CHARGE G8427 DOC MEDS VERIFIED W/PT OR RE G8730 PAIN ASSESS POS TOOL F/U PLAN DOC DISPOSITION & COMMUNICATION FOLLOW UP TPI AFTER APPROVAL ELECTRONICALLY SIGNED BY THELMA BHARDWAJ MD ON 03/18/2017 AT 08:21 AM EDT DISCLAIMER : THIS IS A VISIT SUMMARY EXTRACTED FROM THE [employer] CHART. IT IS NOT A COPY OF THE [employer] PROGRESS NOTE. JULIETA
== END ==
LOC: M PAIN 15:00
PROVIDERS: ATTEND Anesthesiology
DX: M96.1 Postlaminectomy syndrome, not elsewhere classified (principal); M79.1 Myalgia; M54.5 Low back pain; G89.29 Other chronic pain; Z79.82 Long term (current) use of aspirin; Z79.84 Long term (current) use of oral hypoglycemic drugs; Z79.891 Long term (current) use of opiate analgesic; Z79.899 Other long term (current) drug therapy

== ENCOUNTER → 2017-03-30 | Outpatient (CLI) | payer OTHER ==
[2017-03-30 11:26] LABS: MEAN CORPUSCULAR HEMOGLOBIN 29.2 pg (27.0-33.0); MEAN CORPUSCULAR HGB CONC 32.9 g/dl (32.0-36.5); MEAN CORPUSCULAR VOLUME 88.7 fl (80.0-96.0); RED CELL DISTRIBUTION WIDTH 13.3 % (11.5-14.5); WHITE BLOOD COUNT 7.8 K/mm3 (4.0-10.0)
[2017-03-30 13:00] LABS: ALBUMIN 3.9 GM/DL (3.2-5.2); ALBUMIN/GLOBULIN RATIO 1.44 (1.00-1.93); ALKALINE PHOSPHATASE 87 U/L (45-117); ALT/SGPT 27 U/L (12-78); ANION GAP 8 MEQ/L (8-16); AST/SGOT 15 U/L (15-37); BILIRUBIN,TOTAL 0.4 MG/DL (0.2-1.0); BLOOD UREA NITROGEN 17 MG/DL (7-18); CARBON DIOXIDE LEVEL 27 MEQ/L (21-32); CHLORIDE LEVEL 105 MEQ/L (98-107); CHOLESTEROL LEVEL 161 MG/DL (<200); CREATININE FOR GFR 0.86 MG/DL (0.70-1.30); GLOMERULAR FILTRATION RATE > 60.0 (>56); GLUCOSE, FASTING 115 MG/DL (70-105); POTASSIUM SERUM 4.5 MEQ/L (3.5-5.1); SODIUM LEVEL 140 MEQ/L (136-145); TOTAL PROTEIN 6.6 GM/DL (6.4-8.2); TRIGLYCERIDES LEVEL 167 MG/DL (<150)
== END ==
LOC: M LAB 10:45
PROVIDERS: ATTEND Physician Assistant
DX: I50.42 Chronic combined systolic (congestive) and diastolic (congestive) heart failure (principal); I25.10 Atherosclerotic heart disease of native coronary artery without angina pectoris; E78.00 Pure hypercholesterolemia, unspecified

== ENCOUNTER → 2017-04-01 | Outpatient (CLI) | payer OTHER ==
[2017-04-01 14:57] LABS: ALBUMIN/GLOBULIN RATIO 1.29 (1.00-1.93); ALKALINE PHOSPHATASE 94 U/L (45-117); ALT/SGPT 29 U/L (12-78); ANION GAP 8 MEQ/L (8-16); AST/SGOT 13 U/L (15-37); BILIRUBIN,TOTAL 0.4 MG/DL (0.2-1.0); BLOOD UREA NITROGEN 16 MG/DL (7-18); CALCIUM LEVEL 9.1 MG/DL (8.5-10.1); CARBON DIOXIDE LEVEL 27 MEQ/L (21-32); CHLORIDE LEVEL 104 MEQ/L (98-107); CREATININE FOR GFR 0.94 MG/DL (0.70-1.30); FREE T4 1.11 NG/DL (0.76-1.46); GLOMERULAR FILTRATION RATE > 60.0 (>56); GLUCOSE, FASTING 113 MG/DL (70-105); POTASSIUM SERUM 4.7 MEQ/L (3.5-5.1); SODIUM LEVEL 139 MEQ/L (136-145); TOTAL PROTEIN 7.1 GM/DL (6.4-8.2)
== END ==
LOC: M LAB 13:09
PROVIDERS: ATTEND Nurse Practitioner Family
DX: E03.9 Hypothyroidism, unspecified (principal); I10 Essential (primary) hypertension; E11.9 Type 2 diabetes mellitus without complications

== ENCOUNTER → 2017-04-15 | Outpatient (CLI) | payer OTHER ==
[~2017-04-15] MED LIST changes: +BUPIVACAINE HCL 0.25% 30 ML VIAL As Ordered ONE; +ISOVUE-M 300 61% 15ML VIAL (Q9967) As Ordered ONE; +LIDOCAINE 1% SDV INJ 30 ML VIAL As Ordered ONE; +TRIAMCINOLONE ACETONIDE SUSP 40 MG/ML VIAL (J3301) As Ordered ONE
--- NOTE | 2017-04-15 15:09 | REP ---
Partial thoracic spine series: Single view . History: Injection procedure for pain. 28 seconds of fluoroscopy time is reported. Findings: A single fluoroscopically obtained last image hold procedural spot radiographs of the thoracic spine document needle position and contrast injection associated with injection procedure. Signed by Lele Mcrae MD 04/15/2017 03:01 P
--- NOTE | 2017-04-15 15:11 | REP ---
CHEST, THREE VIEWS: HISTORY: Postprocedure pneumothorax. COMPARISON: 01/02/2014. The lungs are clear. There is no pneumothorax. The heart is normal in size. The pulmonary vasculature is normal in appearance. The bony structure is intact. A cardiac pacemaker is present. IMPRESSION: No acute disease. Signed by Maurizio Caceres MD 04/15/2017 03:22 P
--- NOTE | 2017-04-24 23:33 | ECWPNPC ---
PATIENT NAME: CAMILO ARMSTRONG : 1960 GENDER: MALE VISIT DATE: 04/15/2017 DISCHARGE DATE: 04/15/17 1505 VISIT LOCKED DATE TIME: PHYSICIAN: THELMA BHARDWAJ PHYSICIAN PAGER NO: TEXT TO [phone] RESOURCE: THELMA BHARDWAJ REASON FOR APPOINTMENT 1. TFBT SPECIAL FUNDS HISTORY OF PRESENT ILLNESS HISTORY OF PRESENT ILLNESS: PAIN THE PATIENT DESCRIBES THE PAIN... FALL RISK SCREENING: SCREENING :NO FALLS IN THE PAST YEAR CURRENT MEDICATIONS TAKING LISINOPRIL 2.5MG TABLET 1 TAB ORALLY AT BEDTIME, NOTES: 04-14-172099 TAKING COREG 12.5MG TABLET 1 TAB ORALLY TWICE DAILY, NOTES: 04-15-17699 TAKING ASPIRIN 81 MG TABLET DELAYED RELEASE 1 TAB ORALLY DAILY, NOTES: 04-14-172099 TAKING LIPITOR 80 MG TABLET 1 TABLET ORALLY ONCE A DAY AT BEDTIME, NOTES: 04-14-172099 TAKING ALDACTONE 25 MG TABLET 1 TAB ORALLY DAILY, NOTES: 04-14-172099 TAKING LASIX 40 MG TABLET 1 TAB ORALLY DAILY NEEDED, NOTES: NONE TAKING OMEPRAZOLE 40 MG CAPSULE DELAYED RELEASE 1 CAPSULE ORALLY TWICE A DAY, NOTES: 04-15-17699 TAKING NASACORT AQ 55 MCG/ACT AEROSOL 1 PUFF IN EACH NOSTRIL NASALLY ONCE A DAY, NOTES: 04-14-17 TAKING LEVOTHYROXINE SODIUM 25 MCG TABLET 1 TABLET ON AN EMPTY STOMACH IN THE MORNING ORALLY ONCE A DAY, NOTES: 04-15-17699 TAKING METFORMIN HCL 500 MG TABLET 1 TABLET WITH MEALS IN AM, 2 TABS IN THE PM ORALLY 500MG AM, 1000MG AT BEDTIME, NOTES: 04-14-171799 TAKING AVODART 0.5 MG CAPSULE 1 CAPSULE ORALLY ONCE A DAY, NOTES: 04-14-172099 TAKING ZYRTEC 10 MG TABLET 1 TABLET ORALLY ONCE A DAY, NOTES: 04-14-172099 TAKING ADVAIR DISKUS 250-50 MCG/DOSE MISCELLANEOUS 1 INHALATION. ALWAYS RINSE YOUR MOUTH OUT AFTER USE DAILY, NOTES: 04-15-17699 TAKING VENTOLIN HFA 108 (90 BASE) MCG/ACT AEROSOL SOLUTION 2 PUFFS INHALATION EVERY 4-6 HOURS NEEDED, NOTES: NONE TAKING MECLIZINE HCL 25 MG TABLET 1 TABLET ORALLY 1-2 TIMES DAILY NEEDED, NOTES: 04-15-17699 TAKING OXYBUTYNIN CHLORIDE ER 5 MG TABLET EXTENDED RELEASE 24 HOUR DIRECTED ORALLY DAILY, NOTES: 04-15-17699 TAKING KETOCONAZOLE 2 % CREAM 1 APPLICATION TO AFFECTED AREA EXTERNALLY ONCE A DAY TAKING NITROSTAT 0.4 MG TABLET SUBLINGUAL 1 TAB SUBLINGUAL TAB1 TAB FOR CHEST PAIN IF NO RELIEF IN 5 MINUTES TAKE 2ND NITRO IF NO RELIEF AFTER 5 MINUTES TAKE 3RD NITRO ER TAKING VITAMIN D3 2000 UNITS TABLET 1 TAB ORALLY ONCE A DAY, NOTES: 04-14-171399 TAKING MIRALAX 17 GM POWDER 17GM ORALLY DAILY NEEDED, NOTES: NONE TAKING MAGNESIUM 64 MG CAPSULE 1 TAB ORALLY TWICE A DAY, NOTES: 04-15-17699 TAKING CLOBETASOL PROPIONATE 0.05 % CREAM 1 APPLICATION TO RECTAL AREA EXTERNALLY TWICE A DAY NEEDED, NOTES: 04-14-172099 TAKING ZONISAMIDE 50 MG CAPSULE 1 CAP ORALLY ONCE DAILY, NOTES: 04-15-172099 TAKING TAMSULOSIN HCL 0.4 MG CAPSULE 1 CAPSULE 30 MINUTES AFTER THE SAME MEAL EACH DAY ORALLY ONCE A DAY, NOTES: 04-15-172099 TAKING CYMBALTA 20 MG CAPSULE DELAYED RELEASE PARTICLES 1 CAPSULE ORALLY ONCE A DAY, NOTES: 04-14-171799 TAKING COLACE 100 MG CAPSULE 1 CAPSULE NEEDED ORALLY TWICE DAILY, NOTES: 04-15-17699 TAKING GABAPENTIN 300 MG CAPSULE 1 CAPSULE ORALLY THREE TIMES A DAY, NOTES: 04-15-17699 TAKING MOVANTIK 25 MG TABLET 1 TABLET IN THE MORNING ORALLY ONCE A DAY, NOTES: HAS NOT RECEIVED TAKING DRISDOL 61577 UNIT CAPSULE 1 CAPSULE ORALLY ONCE WEEKLY FOR 10 WEEKS, NOTES: WEEK AGO TAKING DETROL 2 MG TABLET 1 TABLET ORALLY TWICE A DAY, NOTES: 04-15-17699 TAKING TRAMADOL HCL ER 100 MG TABLET EXTENDED RELEASE 24 HOUR 1 TABLET ORALLY ONCE A DAY MDD=1, NOTES: 04-15-17699 TAKING SKELAXIN 800 MG TABLET 1 TABLET ORALLY FOUR TIMES DAY WORKMEN COMP, NOTES: 04-15-17699 TAKING PERCOCET 5-325 MG TABLET 1 TABLET ORALLY Q 4 HRS PRN PAIN MDD=5, NOTES: 04-15-17 0-700 UNKNOWN MULTIVITAMINS 1 TABLET DIRECTED ORALLY DAILY, NOTES: 09-07-16 0700 UNKNOWN ALCOHOL PREP PAD 70 % PAD DIRECTED EXTERNALLY TID PRN DX: 250.02 UNKNOWN ONE TOUCH ULTRA 2 LANCET ONE TOUCH ULTRA MINI LANCETS DIRECTED TOP QID AND PRN DX 250.00 UNKNOWN ONE TOUCH ULTRA 2 STRIPS ONE TOUCH ULTRA MINI STRIPS DIRECTED TOP QID AND PRN DX 250.00 MEDICATION LIST REVIEWED AND RECONCILED WITH THE PATIENT PAST MEDICAL HISTORY COPD- SPIROMETRY- 02/05/14- DECLINES AT THIS TIME CHF (SYSTOLIC AND DIASTOLIC)- CANNY HYPERLIPIDEMIA HYPERTENSION GERD CHRONIC LOW BACK PAIN- W COMP- DR BOJORQUEZ- CHRONIC PAIN MEDS PER [facility] PAIN MANAGEMENT. CHRONIC RT KNEE PAIN VERTIGO (SINCE 1990) OBESITY H/O HEAVY ALCOHOL USE (IN REMISSION) ASCVD 10-YEAR RISK IS 3.6% IN HTE COLONOSCOPY 2009 ALLERGIES RED DYE: RASH TOMATO: NAUSEA/VOMITING: ALLERGY FINASTERIDE: FLARED CHF: CONTRAINDICATION NSAIDS: CONGESTIVE FAILURE: CONTRAINDICATION VOLTAREN: GEL/ SPASMS/PAIN: ALLERGY LYRICA: CONTRAINDICATION SURGICAL HISTORY NO PERSONAL OR FHX SEVERE REACTION TO ANESTHESIA R HUMERUS FIXATION 1972 R MEDIAL MENISCECTOMY 1981 DRAINAGE OF R NECK ? PERITONSILAR ABSCESS 1996 S/P AICD PLACMENT 2007 L4-S1 SPINAL DECOMPRESSION WITH INSTRUMENTED POSTERIOR AND INTERBODY FUSION. DUROTOMY REPAIR. ([employer] @ [facility]) 03/2011 EGD-REINDL NML 03/13/10 COLONOSCOPY- REINDL. DIVERTICULOSIS- REPEAT 5-10 YEARS 03/13/10 RIGHT KNEE SURGERY BY ORTHO 02/05 NEW ICD 12/29/16 HOSPITALIZATION/MAJOR DIAGNOSTIC PROCEDURE CHF 2007 DOG BITE 01/2015 REVIEW OF SYSTEMS REVIEWED BY: PROVIDER: . CONSTITUTIONAL: ANY CHANGE IN YOUR MEDICAL CONDITION? NO . CHILLS NO . FEVER NO . INFECTION: DO YOU HAVE NEW INFECTIONS? NO . DO YOU HAVE HISTORY OF MRSA? NO . MUSCULOSKELETAL: ANY NEW PATTERNS OF PAIN OR NUMBNESS? NO . GASTROENTEROLOGY: ANY NEW CHANGE IN BOWEL CONTROL? NO . GENITOURINARY: ANY NEW CHANGE IN BLADDER CONTROL? NO . IS THERE A CHANCE YOU COULD BE ? NO . HEMATOLOGY/LYMPH: DO YOU TAKE ANY BLOOD THINNERS? (FOR EXAMPLE- COUMADIN, PLAVIX, AGGRENOX, PLATEL, PRADAXA, OR XARELTO) NO . WHEN WAS YOUR LAST DOSE? DATE: TIME: . NEUROLOGY: HAVE YOU FALLEN IN THE PAST 6 MONTHS? NO . ANY NEW EXTREMITY NUMBNESS OR WEAKNESS? NO . CARDIOLOGY: DO YOU HAVE A PACEMAKER OR DEFIBRILLATOR? YES, PACEMAKER/DEFRIBILLATOR . RESPIRATORY: HAVE YOU BEEN SICK IN THE PAST WEEK? NO . FEVER NO . FLU LIKE SYMPTOMS? NO . COUGH NO . INTEGUMENTARY: DO YOU HAVE ANY RASHES OR OPEN SORES? NO . ALLERGIC/IMMUNO: ARE YOU ALLERGIC TO SHELLFISH OR IV DYE? NO . ANY NEW ALLERGIES? NO . PSYCHIATRIC: DO YOU HAVE THOUGHTS OF HURTING YOURSELF OR SOMEONE ELSE? NO . ARE YOU ABUSED, NEGLECTED, OR IN AN UNSAFE ENVIRONMENT? NO . ENDOCRINOLOGY: ARE YOU DIABETIC? YES . OTHER: DO YOU NEED ANY PRESCRIPTIONS? NO . IF YES, PLEASE LIST: ____ . ANY NEW PROBLEMS WITH YOUR MEDICATIONS? NO . WHEN DID YOU LAST EAT? 04-14-17 9PM . WHEN DID YOU LAST DRINK? 04-15-17 0930 . WHAT DID YOU LAST DRINK? WATER . NAME OF PERSON DRIVING YOU HOME? KEVYN ROMAN . DO YOU HAVE ANY OTHER QUESTIONS OR CONCERNS NO . VITAL SIGNS WT 257.2 LBS, HT 72 IN, BMI 34.88 INDEX, BP 118/65 MM HG, HR 85 /MIN, RR 18 /MIN, TEMP 97.1 F, OXYGEN SAT % 95%, NA INITIALS TL 1147, REVIEWED BY: CM. 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 YES ARE THE PATIENT'S COMPLAINTS CONSISTENT WITH HIS/HER HISTORY OF THE INJURY/ILLNESS? YES IS THE PATIENT'S HISTORY OF THE INJURY/ILLNESS CONSISTENT WITH YOUR OBJECTIVE FINDING? YES WHAT IS THE PERCENTAGE OF TEMPORARY IMPAIRMENT? MODERATE TO MARKED = 66.7% IS THE PATIENT WORKING? NO DOCTOR ON SITE: THELMA NUNEZ MD PN THORACIC FACET BLOCK THERAPEUTIC PRE PROCEDURE DIAGNOSIS THORACIC SPONDYLOSIS POST PROCEDURE DIAGNOSIS THORACIC SPONDYLOSIS PROCEDURE THORACIC SPONDYLOSIS SURGEON DR. THELMA BHARDWAJ PROCESS CONTROL ENGINEER NONE ANESTHESIA LOCAL PRE PROCEDURE NOTE THE PATIENT WITH HISTORY OF CHRONIC THORACIC PAIN. I EVALUATED THE PATIENT AND REVIEWED THE CHART. I WENT OVER THE RISKS, ALTERNATIVES, AND BENEFITS ASSOCIATED WITH THIS PROCEDURE. THE PATIENT WOULD LIKE TO PROCEED AND GAVE CONSENT TO PERFORM THE PROCEDURE. THE PATIENT DENIES UNEXPLAINABLE WEIGHT LOSS, FEVER, CHILLS, OR NEW CHANGES IN URINARY OR BOWEL CONTROL. DESCRIPTION OF PROCEDURE THE PATIENT WAS BROUGHT TO THE PROCEDURE ROOM AND PLACED IN THE PRONE POSITION. THE THORACIC AREA WAS CLEANED WITH CHLORAPREP SOLUTION AND DRAPED ASEPTICALLY. THE PROCEDURE WAS DONE UNDER STERILE CONDITIONS. I CHECKED LATERALITY AND THE LEVEL WHERE THE PROCEDURE WAS GOING TO BE PERFORMED WITH THE PATIENT AND THE SUPPORTING STAFF AT THE MOMENT OF THE TIME OUT IN THE PROCEDURE ROOM. UNDER FLUOROSCOPIC GUIDANCE, THE TARGET POINT WAS SELECTED AT THE RIGHT AND LEFT T5-T6 AND RIGHT AND LEFT T6-T7 THORACIC FACET. TARGET POINT WAS SELECTED AFTER LATERAL ROTATION AND TILT OF THE MAGNIFIER OF THE C-ARM. LIDOCAINE 0.5% WAS USED TO NUMB THE SKIN AND THE SUBCUTANEOUS TISSUE BELOW IT. SPINAL NEEDLES, 22-GAUGE, WERE ADVANCED UNDER FLUOROSCOPIC GUIDANCE AND FOLLOWING PATIENT FEEDBACK UNTIL THE TARGETS WERE TOUCHED. THE POSITION OF THE NEEDLES WAS VERIFIED WITH MULTIPLE X-RAY VIEWS. AFTER PROPER POSITION OF THE NEEDLES WAS ACHIEVED, ISOVUE-M DYE 30% 0.1 ML WAS INJECTED SHOWING ADEQUATE SPREAD OF THE DYE. THEN A SOLUTION OF 0.9 ML OF BUPIVACAINE 0.125% OF KENALOG 10 MG WAS INJECTED AT EACH SITE. THERE WAS NO EVIDENCE OF BLOOD, PARESTHESIA OR CEREBROSPINAL FLUID DURING THE PROCEDURE. THE PATIENT WAS SENT TO THE RECOVERY ROOM. THE PATIENT WAS MOVING THE EXTREMITIES AND DOING WELL. THERE WAS NO COMPLICATION DURING THE PROCEDURE. FLUOROSCOPY TIME WAS 28 SECONDS POST PROCEDURE NOTE THE PATIENT WILL BE SEEN IN A FOLLOW UP IN THE NEXT FEW WEEKS. INSTRUCTIONS WERE GIVEN, QUESTIONS WERE ANSWERED, AND THE PATIENT EXPRESSED UNDERSTANDING AND AGREED WITH THE PLAN. I, DIONISIO NGUYEN, DOCUMENTED THE ABOVE INFORMATION ACTING A SCRIBE FOR DR. BHARDWAJ. I HAVE REVIEWED THE ABOVE DOCUMENT, WRITTEN BY DIONISIO DEE AND I VERIFY THAT IT IS ACCURATE DIAGNOSTIC IMAGING [facility] FACET BLOCK (PAIN)[id number] PROCEDURE CODES 79683 INJ PARAVERT F JNT C/T 1 LEV 05792 INJ PARAVERT F JNT C/T 2 LEV 6045F RADXPS IN END [id number] PXD DISPOSITION & COMMUNICATION FOLLOW UP 3 WEEKS ELECTRONICALLY SIGNED BY THELMA BHARDWAJ MD ON 04/24/2017 AT 08:04 PM EDT DISCLAIMER : THIS IS A VISIT SUMMARY EXTRACTED FROM THE [employer] CHART. IT IS NOT A COPY OF THE [employer] PROGRESS NOTE. MTDD
== END ==
LOC: M PAIN 11:40
PROVIDERS: ATTEND Anesthesiology
DX: G89.29 Other chronic pain (principal); M47.814 Spondylosis without myelopathy or radiculopathy, thoracic region; Z79.82 Long term (current) use of aspirin; Z79.84 Long term (current) use of oral hypoglycemic drugs; Z79.891 Long term (current) use of opiate analgesic; Z79.899 Other long term (current) drug therapy; Z91.018 Allergy to other foods; Z91.09 Other allergy status, other than to drugs and biological substances; Z88.8 Allergy status to other drugs, medicaments and biological substances
CPT/HCPCS: 64490; 64491; 71020; J3301; Q9967

== ENCOUNTER → 2017-04-15 | Outpatient (CLI) | payer OTHER ==
[~2017-04-15] MED LIST changes: -BUPIVACAINE HCL 0.25% 30 ML VIAL As Ordered ONE; -ISOVUE-M 300 61% 15ML VIAL (Q9967) As Ordered ONE; -LIDOCAINE 1% SDV INJ 30 ML VIAL As Ordered ONE; -TRIAMCINOLONE ACETONIDE SUSP 40 MG/ML VIAL (J3301) As Ordered ONE
--- NOTE | 2017-04-26 01:04 | ECWPNPC ---
PATIENT NAME: CAMILO ARMSTRONG : 1960 GENDER: MALE VISIT DATE: 04/15/2017 DISCHARGE DATE: 04/15/17 1614 VISIT LOCKED DATE TIME: PHYSICIAN: THELMA BHARDWAJ PHYSICIAN PAGER NO: TEXT [phone] RESOURCE: THELMA BHARDWAJ REASON FOR APPOINTMENT 1. LOW BACK PAIN STATE INS FUND W/C HISTORY OF PRESENT ILLNESS HISTORY OF PRESENT ILLNESS: PAIN THE PATIENT DESCRIBES THE PAIN... 57 YEAR OLD MALE PATIENT WITH HISTORY OF CHRONIC LOW BACK PAIN. PATIENT DESCRIBES THE PAIN ACHING, SHARP, STABBING, TENDER, SORE AND HAVING IT ALL THE TIME WITH A PAIN SCORE OF 8/10. 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 PATIENT RECEIVED A BACK SURGERY IN 2010 AND STATES THAT IT DID AID IN PAIN RELIEF. MR. ARMSTRONG STATES THAT PHYSICAL THERAPY DID NOT AID IN PAIN RELIEF. CURRENTLY THE PATIENT IS USING PERCOCET, GABAPENTIN AND TRAMADOL AND STATES THAT THE MEDICATION AIDS IN PAIN RELIEF. PATIENT DENIES UNEXPLAINABLE WEIGHT LOSS, FEVER, CHILLS, NEW CHANGES ON HIS URINARY OR BOWEL CONTROL. FALL RISK SCREENING: SCREENING :NO FALLS IN THE PAST YEAR CURRENT MEDICATIONS TAKING LISINOPRIL 2.5MG TABLET 1 TAB ORALLY AT BEDTIME TAKING COREG 12.5MG TABLET 1 TAB ORALLY TWICE DAILY TAKING ASPIRIN 81 MG TABLET DELAYED RELEASE 1 TAB ORALLY DAILY TAKING LIPITOR 80 MG TABLET 1 TABLET ORALLY ONCE A DAY AT BEDTIME TAKING ALDACTONE 25 MG TABLET 1 TAB ORALLY DAILY TAKING LASIX 40 MG TABLET 1 TAB ORALLY DAILY NEEDED TAKING OMEPRAZOLE 40 MG CAPSULE DELAYED RELEASE 1 CAPSULE ORALLY TWICE A DAY TAKING NASACORT AQ 55 MCG/ACT AEROSOL 1 PUFF IN EACH NOSTRIL NASALLY ONCE A DAY TAKING LEVOTHYROXINE SODIUM 25 MCG TABLET 1 TABLET ON AN EMPTY STOMACH IN THE MORNING ORALLY ONCE A DAY TAKING METFORMIN HCL 500 MG TABLET 1 TABLET WITH MEALS IN AM, 2 TABS IN THE PM ORALLY 500MG AM, 1000MG AT BEDTIME TAKING AVODART 0.5 MG CAPSULE 1 CAPSULE ORALLY ONCE A DAY TAKING ZYRTEC 10 MG TABLET 1 TABLET ORALLY ONCE A DAY TAKING ADVAIR DISKUS 250-50 MCG/DOSE MISCELLANEOUS 1 INHALATION. ALWAYS RINSE YOUR MOUTH OUT AFTER USE DAILY TAKING VENTOLIN HFA 108 (90 BASE) MCG/ACT AEROSOL SOLUTION 2 PUFFS INHALATION EVERY 4-6 HOURS NEEDED TAKING MECLIZINE HCL 25 MG TABLET 1 TABLET ORALLY 1-2 TIMES DAILY NEEDED TAKING OXYBUTYNIN CHLORIDE ER 5 MG TABLET EXTENDED RELEASE 24 HOUR DIRECTED ORALLY DAILY TAKING KETOCONAZOLE 2 % CREAM 1 APPLICATION TO AFFECTED AREA EXTERNALLY ONCE A DAY TAKING NITROSTAT 0.4 MG TABLET SUBLINGUAL 1 TAB SUBLINGUAL TAB1 TAB FOR CHEST PAIN IF NO RELIEF IN 5 MINUTES TAKE 2ND NITRO IF NO RELIEF AFTER 5 MINUTES TAKE 3RD NITRO ER TAKING VITAMIN D3 2000 UNITS TABLET 1 TAB ORALLY ONCE A DAY TAKING MIRALAX 17 GM POWDER 17GM ORALLY DAILY NEEDED TAKING MAGNESIUM 64 MG CAPSULE 1 TAB ORALLY TWICE A DAY TAKING CLOBETASOL PROPIONATE 0.05 % CREAM 1 APPLICATION TO RECTAL AREA EXTERNALLY TWICE A DAY NEEDED TAKING ZONISAMIDE 50 MG CAPSULE 1 CAP ORALLY ONCE DAILY TAKING TAMSULOSIN HCL 0.4 MG CAPSULE 1 CAPSULE 30 MINUTES AFTER THE SAME MEAL EACH DAY ORALLY ONCE A DAY TAKING CYMBALTA 20 MG CAPSULE DELAYED RELEASE PARTICLES 1 CAPSULE ORALLY ONCE A DAY TAKING COLACE 100 MG CAPSULE 1 CAPSULE NEEDED ORALLY TWICE DAILY TAKING GABAPENTIN 300 MG CAPSULE 1 CAPSULE ORALLY THREE TIMES A DAY TAKING MOVANTIK 25 MG TABLET 1 TABLET IN THE MORNING ORALLY ONCE A DAY TAKING DRISDOL 79674 UNIT CAPSULE 1 CAPSULE ORALLY ONCE WEEKLY FOR 10 WEEKS TAKING DETROL 2 MG TABLET 1 TABLET ORALLY TWICE A DAY TAKING TRAMADOL HCL ER 100 MG TABLET EXTENDED RELEASE 24 HOUR 1 TABLET ORALLY ONCE A DAY MDD=1 TAKING SKELAXIN 800 MG TABLET 1 TABLET ORALLY FOUR TIMES DAY WORKMEN COMP TAKING PERCOCET 5-325 MG TABLET 1 TABLET ORALLY Q 4 HRS PRN PAIN MDD=5 UNKNOWN MULTIVITAMINS 1 TABLET DIRECTED ORALLY DAILY, NOTES: 09-07-16 0700 UNKNOWN ALCOHOL PREP PAD 70 % PAD DIRECTED EXTERNALLY TID PRN DX: 250.02 UNKNOWN ONE TOUCH ULTRA 2 LANCET ONE TOUCH ULTRA MINI LANCETS DIRECTED TOP QID AND PRN DX 250.00 UNKNOWN ONE TOUCH ULTRA 2 STRIPS ONE TOUCH ULTRA MINI STRIPS DIRECTED TOP QID AND PRN DX 250.00 MEDICATION LIST REVIEWED AND RECONCILED WITH THE PATIENT PAST MEDICAL HISTORY COPD- SPIROMETRY- 02/05/14- DECLINES AT THIS TIME CHF (SYSTOLIC AND DIASTOLIC)- CANNY HYPERLIPIDEMIA HYPERTENSION GERD CHRONIC LOW BACK PAIN- W COMP- DR BOJORQUEZ- CHRONIC PAIN MEDS PER [facility] PAIN MANAGEMENT. CHRONIC RT KNEE PAIN VERTIGO (SINCE 1990) OBESITY H/O HEAVY ALCOHOL USE (IN REMISSION) ASCVD 10-YEAR RISK IS 3.6% IN HTE COLONOSCOPY 2009 ALLERGIES RED DYE: RASH TOMATO: NAUSEA/VOMITING: ALLERGY FINASTERIDE: FLARED CHF: CONTRAINDICATION NSAIDS: CONGESTIVE FAILURE: CONTRAINDICATION VOLTAREN: GEL/ SPASMS/PAIN: ALLERGY LYRICA: CONTRAINDICATION SURGICAL HISTORY NO PERSONAL OR FHX SEVERE REACTION TO ANESTHESIA R HUMERUS FIXATION 1972 R MEDIAL MENISCECTOMY 1981 DRAINAGE OF R NECK ? PERITONSILAR ABSCESS 1996 S/P AICD PLACMENT 2007 L4-S1 SPINAL DECOMPRESSION WITH INSTRUMENTED POSTERIOR AND INTERBODY FUSION. DUROTOMY REPAIR. ([facility] @ [facility] [place]) 03/2011 EGD-REINDL NML 03/13/10 COLONOSCOPY- REINDL. DIVERTICULOSIS- REPEAT 5-10 YEARS 03/13/10 RIGHT KNEE SURGERY BY ORTHO 02/05 NEW ICD 12/29/16 SOCIAL HISTORY GENERAL: TOBACCO USE ARE YOU A:NONSMOKER ALCOHOL SCREENING DID YOU HAVE A DRINK CONTAINING ALCOHOL IN THE PAST YEAR?NO POINTS0 INTERPRETATIONNEGATIVE CAFFEINE CAFFEINE USE?NO EXERCISE: WALKS. MARITAL STATUS: .. [employer] [id number] [employer] L[employer] LANGUAGES SPOKEN:UZBEK LEARNING BARRIERS / SPECIAL NEEDS CHANGE FROM LAST VISIT?NO BARRIERS TO LEARNING?NO HEARING IMPAIRED?NO VISION IMPAIRED?YES :CORRECTIVE LENSES COGNITIVELY IMPAIRED?NO READINESS TO LEARN?YES LEARNING PREFERENCES?NO LEARNING CAPABILITIES PRESENT?YES EMOTIONAL BARRIERS?NO SPECIAL DEVICES?NO SENIOR NET APPLICATION DEVELOPER NEEDED?NO PAIN CLINIC PFS, CLERGY, PUBLIC HEALTH REFERRALS CLERGY REFERRAL NEEDED?NO WAS THE PROVIDER NOTIFIED OF ANY PERTINENT INFO?NO PFS REFERRAL NEEDED?NO PUBLIC HEALTH REFERRAL NEEDED?NO PATIENT: ____. HOSPITALIZATION/MAJOR DIAGNOSTIC PROCEDURE [facility] 2008 DOG BITE 01/2015 REVIEW OF SYSTEMS REVIEWED BY: PROVIDER: THELMA BHARDWAJ MD . CONSTITUTIONAL: ANY CHANGE IN YOUR MEDICAL CONDITION? NO . CHILLS NO . FEVER NO . INFECTION: DO YOU HAVE NEW INFECTIONS? NO . DO YOU HAVE HISTORY OF MRSA? NO . MUSCULOSKELETAL: ANY NEW PATTERNS OF PAIN OR NUMBNESS? NO . GASTROENTEROLOGY: ANY NEW CHANGE IN BOWEL CONTROL? NO . GENITOURINARY: ANY NEW CHANGE IN BLADDER CONTROL? NO . IS THERE A CHANCE YOU COULD BE ? NO . HEMATOLOGY/LYMPH: DO YOU TAKE ANY BLOOD THINNERS? (FOR EXAMPLE- COUMADIN, PLAVIX, AGGRENOX, PLATEL, PRADAXA, OR XARELTO) NO . WHEN WAS YOUR LAST DOSE? DATE: TIME: . NEUROLOGY: HAVE YOU FALLEN IN THE PAST 6 MONTHS? NO . ANY NEW EXTREMITY NUMBNESS OR WEAKNESS? NO . CARDIOLOGY: DO YOU HAVE A PACEMAKER OR DEFIBRILLATOR? YES . RESPIRATORY: HAVE YOU BEEN SICK IN THE PAST WEEK? NO . FEVER NO . FLU LIKE SYMPTOMS? NO . COUGH NO . INTEGUMENTARY: DO YOU HAVE ANY RASHES OR OPEN SORES? NO . ALLERGIC/IMMUNO: ARE YOU ALLERGIC TO SHELLFISH OR IV DYE? NO . ANY NEW ALLERGIES? NO . PSYCHIATRIC: DO YOU HAVE THOUGHTS OF HURTING YOURSELF OR SOMEONE ELSE? NO . ARE YOU ABUSED, NEGLECTED, OR IN AN UNSAFE ENVIRONMENT? NO . ENDOCRINOLOGY: ARE YOU DIABETIC? YES . OTHER: DO YOU NEED ANY PRESCRIPTIONS? NO . IF YES, PLEASE LIST: ____ . ANY NEW PROBLEMS WITH YOUR MEDICATIONS? NO . WHEN DID YOU LAST EAT? ____ . WHEN DID YOU LAST DRINK? ____ . WHAT DID YOU LAST DRINK? ____ . NAME OF PERSON DRIVING YOU HOME? ____ . DO YOU HAVE ANY OTHER QUESTIONS OR CONCERNS NO . VITAL SIGNS WT 257.2 LBS, HT 72 IN, BMI 34.88 INDEX, BP 133/60 MM HG, HR 74 /MIN, RR 16 /MIN, TEMP 97.1 F, OXYGEN SAT % 96%, REVIEWED BY: GIL. EXAMINATION : PATIENT IS ALERT O X 3 AND COOPERATIVE. TENDERNESS IN THE LOWER BACK AND PARASPINAL MUSCLE GROUP. ANTALGIC GAIT. PATIENT ABLE TO BEND 45 DEGREES AND EXTEND 10 DEGREES. PATIENT HAS SCAR ROUGHLY 4 INCHES LONG. BANDS OF TISSUE, RESTRICTION OF MOVING AND PRESENCE OF TRIGGER POINTS IN THE LOWER BACK AREA. LEFT LEG IS WEAKER THEN THE RIGHT AT EXTENSION AND FLEXION. MRI DONE ON 04/13/16 OF THE LUMBAR SPINE SHOWS POST LAMINECTOMY CHANCES AND A DISC BULGE AT L3-L4. 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 ARMSTRONG'S PAIN MANAGEMENT CASE. AT THIS TIME THE PATIENT WILL CONTINUE WITH THE SAME MEDICATION REGIME BEFORE. PATIENT IS USING THE GABAPENTIN FOR THE NEUROPATHIC PAIN, PERCOCET FOR THE SOMATIC PAIN, MELOXICAM AND TIZANIDINE FOR THE MUSCLE SPASMS AND TIGHTNESS. MR. ARMSTRONG HAS TRIED TO REDUCE THE SKELAXIN BUT STATES WHEN HE DOES HIS PAIN BECOMES SO SEVERE HE IS NOT ABLE TO FUNCTION. I WOULD LIKE THE PATIENT TO INCREASE THE GABAPENTIN TO FOUR TABLETS A DAY. PATIENT DENIES ABUSE TO ANY MEDICATION, DENIES USE OF ANY ILLEGAL SUBSTANCES, AND STATES HE IS ONLY USING THE MEDICATION FOR PAIN MANAGEMENT. URINE TOXICOLOGY DONE ON 02/07/17 SHOWS CONSISTENT RESULTS WITH THE PATIENTS MEDICATION LIST. I WOULD LIKE TO FIND A LONGER LASTING RELIEF FOR THE PATIENT. MR. ARMSTRONG IS A GOOD CANDIDATE FOR THERAPEUTIC FACET BLOCK AT L4-L5 AND L5-S1. WE DISCUSSED THE RISKS, BENENFITS, AND ALTNERATIVES AND THE PATIENT WOULD LIKE TO PROCEED. INSTRUCTIONS WERE GIVEN, QUESTIONS WERE ANSWERED, PATIENT REPORTS UNDERSTANDING AND AGREES WITH THE PLAN. I, DIONISIO NGUYEN, DOCUMENTED THE ABOVE INFORMATION ACTING A SCRIBE FOR DR. BHARDWAJ. I HAVE REVIEWED THE ABOVE DOCUMENT, WRITTEN BY DIONISIO DEE AND I VERIFY THAT IT IS ACCURATE. RADICULITIS DUE TO DISPLACEMENT OF DISC, THORACIC REFILL TRAMADOL HCL ER TABLET EXTENDED RELEASE 24 HOUR, 100 MG, 1 TABLET, ORALLY, ONCE A DAY MDD=1, 30 DAY(S), 30, REFILLS 1 CHRONIC PRESCRIPTION OPIATE USE REFILL PERCOCET TABLET, 5-325 MG, 1 TABLET, ORALLY, Q 4 HRS PRN PAIN MDD=5, 30 DAY(S), 145, REFILLS 0 OTHERS REFILL GABAPENTIN CAPSULE, 300 MG, 1 CAPSULE, ORALLY FOR PAIN, FOUR TIMES DAILY MDD4, 30 DAY(S), 120, REFILLS 2 PROCEDURES PN WORKMANS' COMP OPINION IN YOUR OPINION, WAS THE INCIDENT THAT THE PATIENT DESCRIBED THE COMPETENT MEDICAL CAUSE OF THIS INJURY/ILLNESS? YES ARE THE PATIENT'S COMPLAINTS CONSISTENT WITH HIS/HER HISTORY OF THE INJURY/ILLNESS? YES IS THE PATIENT'S HISTORY OF THE INJURY/ILLNESS CONSISTENT WITH YOUR OBJECTIVE FINDING? YES WHAT IS THE PERCENTAGE OF TEMPORARY IMPAIRMENT? MODERATE TO MARKED = 66.7% IS THE PATIENT WORKING? NO DOCTOR ON SITE: THELMA NUNEZ MD PROCEDURE CODES FA211 ESTABILISHED PATIENT [facility] FACILITY CHARGE G8427 DOC MEDS VERIFIED W/PT OR RE G8730 PAIN ASSESS POS TOOL F/U PLAN DOC DISPOSITION & COMMUNICATION FOLLOW UP LFBT AFTER APPROVAL ELECTRONICALLY SIGNED BY THELMA BHARDWAJ MD ON 04/25/2017 AT 06:02 PM EDT DISCLAIMER : THIS IS A VISIT SUMMARY EXTRACTED FROM THE [employer] CHART. IT IS NOT A COPY OF THE [employer] PROGRESS NOTE. JULIETA
== END ==
LOC: M PAIN 13:00
PROVIDERS: ATTEND Anesthesiology
DX: M47.816 Spondylosis without myelopathy or radiculopathy, lumbar region (principal); M79.1 Myalgia; M51.14 Intervertebral disc disorders with radiculopathy, thoracic region; Z79.891 Long term (current) use of opiate analgesic; M96.1 Postlaminectomy syndrome, not elsewhere classified; M47.817 Spondylosis without myelopathy or radiculopathy, lumbosacral region; G89.29 Other chronic pain; Z79.899 Other long term (current) drug therapy; Z79.82 Long term (current) use of aspirin; Z79.84 Long term (current) use of oral hypoglycemic drugs

== ENCOUNTER → 2017-05-11 | Outpatient (CLI) | payer OTHER ==
--- NOTE | 2017-05-26 00:46 | ECWPNPC ---
PATIENT NAME: CAMILO ARMSTRONG : 1960 GENDER: MALE VISIT DATE: 05/11/2017 DISCHARGE DATE: 05/11/17 1434 VISIT LOCKED DATE TIME: PHYSICIAN: CELINA FORD PHYSICIAN PAGER NO: TEXT TO [phone] RESOURCE: CELINA FORD REASON FOR APPOINTMENT 1. W/C NECK THORACIC AREA HISTORY OF PRESENT ILLNESS HISTORY OF PRESENT ILLNESS: PAIN THE PATIENT DESCRIBES THE PAIN... FALL RISK SCREENING: SCREENING :NO FALLS IN THE PAST YEAR TODAY'S VISIT: NOTES: THORACIC (SPECIAL FUNDS) S/P BILATERAL THORACIC FACET BLOCK - THERAPEUTIC COMPLETED ON 04/15/17. NOTES PAIN LEVEL PRIOR 9/10. POST INJECTION PAIN HAS IMPROVED TO 5/10 FOR A 50 % + IMPROVEMENT. HAS BEEN ABLE TO BE MORE ACTIVE. IS HAVING NO RADIATING PAIN TO THE CHEST. THIS HAS IMPROVED ABILITY TO STAND AND STRETCH AND TAKE A DEEP BREATH. HAS BEEN ABLE TO DECREASE PAIN MEDS AFTER INJECTION.. CURRENT MEDICATIONS TAKING LISINOPRIL 2.5MG TABLET 1 TAB ORALLY AT BEDTIME TAKING COREG 12.5MG TABLET 1 TAB ORALLY TWICE DAILY TAKING ASPIRIN 81 MG TABLET DELAYED RELEASE 1 TAB ORALLY DAILY TAKING LIPITOR 80 MG TABLET 1 TABLET ORALLY ONCE A DAY AT BEDTIME TAKING ALDACTONE 25 MG TABLET 1 TAB ORALLY DAILY TAKING LASIX 40 MG TABLET 1 TAB ORALLY DAILY NEEDED TAKING OMEPRAZOLE 40 MG CAPSULE DELAYED RELEASE 1 CAPSULE ORALLY TWICE A DAY TAKING NASACORT AQ 55 MCG/ACT AEROSOL 1 PUFF IN EACH NOSTRIL NASALLY ONCE A DAY TAKING LEVOTHYROXINE SODIUM 25 MCG TABLET 1 TABLET ON AN EMPTY STOMACH IN THE MORNING ORALLY ONCE A DAY TAKING METFORMIN HCL 500 MG TABLET 1 TABLET WITH MEALS IN AM, 2 TABS IN THE PM ORALLY 500MG AM, 1000MG AT BEDTIME TAKING AVODART 0.5 MG CAPSULE 1 CAPSULE ORALLY ONCE A DAY TAKING ADVAIR DISKUS 250-50 MCG/DOSE MISCELLANEOUS 1 INHALATION. ALWAYS RINSE YOUR MOUTH OUT AFTER USE DAILY TAKING VENTOLIN HFA 108 (90 BASE) MCG/ACT AEROSOL SOLUTION 2 PUFFS INHALATION EVERY 4-6 HOURS NEEDED TAKING MECLIZINE HCL 25 MG TABLET 1 TABLET ORALLY 1-2 TIMES DAILY NEEDED TAKING OXYBUTYNIN CHLORIDE ER 5 MG TABLET EXTENDED RELEASE 24 HOUR DIRECTED ORALLY DAILY TAKING KETOCONAZOLE 2 % CREAM 1 APPLICATION TO AFFECTED AREA EXTERNALLY ONCE A DAY TAKING NITROSTAT 0.4 MG TABLET SUBLINGUAL 1 TAB SUBLINGUAL TAB1 TAB FOR CHEST PAIN IF NO RELIEF IN 5 MINUTES TAKE 2ND NITRO IF NO RELIEF AFTER 5 MINUTES TAKE 3RD NITRO ER TAKING VITAMIN D3 2000 UNITS TABLET 1 TAB ORALLY ONCE A DAY TAKING MIRALAX 17 GM POWDER 17GM ORALLY DAILY NEEDED TAKING MAGNESIUM 64 MG CAPSULE 1 TAB ORALLY TWICE A DAY TAKING CLOBETASOL PROPIONATE 0.05 % CREAM 1 APPLICATION TO RECTAL AREA EXTERNALLY TWICE A DAY NEEDED TAKING ZONISAMIDE 50 MG CAPSULE 1 CAP ORALLY ONCE DAILY TAKING TAMSULOSIN HCL 0.4 MG CAPSULE 1 CAPSULE 30 MINUTES AFTER THE SAME MEAL EACH DAY ORALLY ONCE A DAY TAKING CYMBALTA 20 MG CAPSULE DELAYED RELEASE PARTICLES 1 CAPSULE ORALLY ONCE A DAY TAKING MOVANTIK 25 MG TABLET 1 TABLET IN THE MORNING ORALLY ONCE A DAY, NOTES: NEVER RECEIVED TAKING DETROL 2 MG TABLET 1 TABLET ORALLY TWICE A DAY TAKING TRAMADOL HCL ER 100 MG TABLET EXTENDED RELEASE 24 HOUR 1 TABLET ORALLY ONCE A DAY MDD=1 TAKING SKELAXIN 800 MG TABLET 1 TABLET ORALLY FOUR TIMES DAY WORKMEN COMP TAKING GABAPENTIN 300 MG CAPSULE 1 CAPSULE ORALLY FOR PAIN FOUR TIMES DAILY MDD4 TAKING ZYRTEC 10 MG TABLET 1 TABLET ORALLY ONCE A DAY TAKING PERCOCET 5-325 MG TABLET 1 TABLET ORALLY Q 4 HRS PRN PAIN MDD=5 TAKING COLACE 100 MG CAPSULE 1 CAPSULE NEEDED ORALLY TWICE DAILY NOT-TAKING DRISDOL 23842 UNIT CAPSULE 1 CAPSULE ORALLY ONCE WEEKLY FOR 10 WEEKS UNKNOWN MULTIVITAMINS 1 TABLET DIRECTED ORALLY DAILY, NOTES: 09-07-16 0700 UNKNOWN ALCOHOL PREP PAD 70 % PAD DIRECTED EXTERNALLY TID PRN DX: 250.02 UNKNOWN ONE TOUCH ULTRA 2 LANCET ONE TOUCH ULTRA MINI LANCETS DIRECTED TOP QID AND PRN DX 250.00 UNKNOWN ONE TOUCH ULTRA 2 STRIPS ONE TOUCH ULTRA MINI STRIPS DIRECTED TOP QID AND PRN DX 250.00 MEDICATION LIST REVIEWED AND RECONCILED WITH THE PATIENT PAST MEDICAL HISTORY COPD- SPIROMETRY- 02/05/14- DECLINES AT THIS TIME CHF (SYSTOLIC AND DIASTOLIC)- CANNY HYPERLIPIDEMIA HYPERTENSION GERD CHRONIC LOW BACK PAIN- W COMP- DR BOJORQUEZ- CHRONIC PAIN MEDS PER [facility] PAIN MANAGEMENT. CHRONIC RT KNEE PAIN VERTIGO (SINCE 1990) OBESITY H/O HEAVY ALCOHOL USE (IN REMISSION) ASCVD 10-YEAR RISK IS 3.6% IN HTE COLONOSCOPY 2009 ALLERGIES RED DYE: RASH TOMATO: NAUSEA/VOMITING: ALLERGY FINASTERIDE: FLARED CHF: CONTRAINDICATION NSAIDS: CONGESTIVE FAILURE: CONTRAINDICATION VOLTAREN: GEL/ SPASMS/PAIN: ALLERGY LYRICA: CONTRAINDICATION SOCIAL HISTORY GENERAL: TOBACCO USE ARE YOU A:NONSMOKER ALCOHOL SCREENING DID YOU HAVE A DRINK CONTAINING ALCOHOL IN THE PAST YEAR?NO POINTS0 INTERPRETATIONNEGATIVE CAFFEINE CAFFEINE USE?NO EXERCISE: WALKS. MARITAL STATUS: .. SHINTO [id number] JUDAISM LANGUAGE LANGUAGES SPOKEN:SOU[place] AFR[place] LEARNING BARRIERS / SPECIAL NEEDS CHANGE FROM LAST VISIT?NO BARRIERS TO LEARNING?NO HEARING IMPAIRED?NO VISION IMPAIRED?YES :CORRECTIVE LENSES COGNITIVELY IMPAIRED?NO READINESS TO LEARN?YES LEARNING PREFERENCES?NO LEARNING CAPABILITIES PRESENT?YES EMOTIONAL BARRIERS?NO SPECIAL DEVICES?NO TRACK GRINDER NEEDED?NO PAIN CLINIC PFS, CLERGY, PUBLIC HEALTH REFERRALS PFS REFERRAL NEEDED?NO CLERGY REFERRAL NEEDED?NO PUBLIC HEALTH REFERRAL NEEDED?NO WAS THE PROVIDER NOTIFIED OF ANY PERTINENT INFO?NO HAS THE PATIENT BEEN EDUCATED REGARDING HIS/HER PLAN OF CARE?YES HAS THE PATIENT BEEN EDUCATED REGARDING PAIN, THE RISK FOR PAIN, THE IMPORTANCE OF EFFECTIVE PAIN MANAGEMENT, AND THE PAIN ASSESSMENT PROCESS?YES PATIENT: ____. REVIEW OF SYSTEMS REVIEWED BY: PROVIDER: CELINA CONTRERAS . CONSTITUTIONAL: ANY CHANGE IN YOUR MEDICAL CONDITION? NO . CHILLS NO . FEVER NO . INFECTION: DO YOU HAVE NEW INFECTIONS? NO . DO YOU HAVE HISTORY OF MRSA? NO . MUSCULOSKELETAL: ANY NEW PATTERNS OF PAIN OR NUMBNESS? NO . GASTROENTEROLOGY: ANY NEW CHANGE IN BOWEL CONTROL? NO . GENITOURINARY: ANY NEW CHANGE IN BLADDER CONTROL? NO . IS THERE A CHANCE YOU COULD BE ? NO . HEMATOLOGY/LYMPH: DO YOU TAKE ANY BLOOD THINNERS? (FOR EXAMPLE- COUMADIN, PLAVIX, AGGRENOX, PLATEL, PRADAXA, OR XARELTO) NO . WHEN WAS YOUR LAST DOSE? DATE: TIME: . NEUROLOGY: HAVE YOU FALLEN IN THE PAST 6 MONTHS? NO . ANY NEW EXTREMITY NUMBNESS OR WEAKNESS? NO . CARDIOLOGY: DO YOU HAVE A PACEMAKER OR DEFIBRILLATOR? YES . CHEST PAIN PATIENT DENIES . RESPIRATORY: HAVE YOU BEEN SICK IN THE PAST WEEK? NO . FEVER NO . FLU LIKE SYMPTOMS? NO . COUGH NO . INTEGUMENTARY: DO YOU HAVE ANY RASHES OR OPEN SORES? NO . ALLERGIC/IMMUNO: ARE YOU ALLERGIC TO SHELLFISH OR IV DYE? NO . ANY NEW ALLERGIES? NO . PSYCHIATRIC: DO YOU HAVE THOUGHTS OF HURTING YOURSELF OR SOMEONE ELSE? NO . ARE YOU ABUSED, NEGLECTED, OR IN AN UNSAFE ENVIRONMENT? NO . ENDOCRINOLOGY: ARE YOU DIABETIC? YES . OTHER: DO YOU NEED ANY PRESCRIPTIONS? YES . IF YES, PLEASE LIST: TRAMADOL . ANY NEW PROBLEMS WITH YOUR MEDICATIONS? NO . WHEN DID YOU LAST EAT? ____ . WHEN DID YOU LAST DRINK? ____ . WHAT DID YOU LAST DRINK? ____ . NAME OF PERSON DRIVING YOU HOME? ____ . DO YOU HAVE ANY OTHER QUESTIONS OR CONCERNS NO . VITAL SIGNS WT 248.6 LBS, HT 72 IN, BMI 33.71 INDEX, BP 113/67 MM HG, HR 80 /MIN, RR 18 /MIN, TEMP 98.0 F, OXYGEN SAT % 95%, REVIEWED BY: ARMANDO (DONE AT 1357). EXAMINATION GENERAL EXAMINATION: PSYCHALERT , ORIENTED X 3 , APPROPRIATE MOOD AND AFFECT . CHEST:FULL THORACIC EXCURSION. LUNGS:CLEAR TO AUSCULTATION BILATERALLY, NO WHEEZES, RALES OR RHONCHI. HEART:HEART RATE REGULAR, NO CAROTID BRUITS. MUSCULOSKELETAL:MINIMAL TENDERNESS OVER MID THORACIC SPINOUS PROCESSES. CAN FLEX TO 20 DEGREES. SLOW TO RISE TO STANDING POSITION. POSTURE UPRIGHT. FEW TRIGGER POINTS AND TIGHT FIEROUS BANDS IDENTIFIED OVER TRAPEZIUS MUSCLES AND ACROSS SCAPLA BILATERALLY. POT MAKER STRENGTH EQUAL AND STRONG. ASSESSMENTS MYALGIA - M79.1 (PRIMARY) RADICULITIS DUE TO DISPLACEMENT OF DISC, THORACIC - M51.14 CHRONIC PRESCRIPTION OPIATE USE - Z79.899 TREATMENT MYALGIA REFILL TRAMADOL HCL ER TABLET EXTENDED RELEASE 24 HOUR, 100 MG, 1 TABLET, ORALLY, ONCE A DAY MDD=1, 30 DAY(S), 30, REFILLS 2 NOTES: CONTINUE WALKING, STRETCHES. CONTINUE CURRENT MEDS. CLINICAL NOTES: ISTOP REGISTRY REVIEWED AND DEMNOSTRATES COMPLLIANCE. BRINGS IN MEDICATIONS WHICH IS APPROPRIATE FOR WHAT WAS DISPENSED. RECENT URINE TOXICOLOGY REVIEWED. NO UNAUTHORIZED MEDICATIONS. NO ILLICIT SUBSTANCES AND PRESCRIBED MEDICATIONS WERE PRESENT. PROCEDURES PN WORKMANS' COMP OPINION IN YOUR OPINION, WAS THE INCIDENT THAT THE PATIENT DESCRIBED THE COMPETENT MEDICAL CAUSE OF THIS INJURY/ILLNESS? YES ARE THE PATIENT'S COMPLAINTS CONSISTENT WITH HIS/HER HISTORY OF THE INJURY/ILLNESS? YES IS THE PATIENT'S HISTORY OF THE INJURY/ILLNESS CONSISTENT WITH YOUR OBJECTIVE FINDING? YES WHAT IS THE PERCENTAGE OF TEMPORARY IMPAIRMENT? MODERATE TO MARKED = 66.7% IS THE PATIENT WORKING? NO DOCTOR ON SITE: THELMA NUNEZ MD PROCEDURE CODES FA211 ESTABILISHED PATIENT [facility] CHARGE DISPOSITION & COMMUNICATION FOLLOW UP 6 WEEKS (REASON: WC NECK/THORACIC) ELECTRONICALLY SIGNED BY ESCOBAR VALENTIN ON 05/25/2017 AT 06:44 PM EDT DISCLAIMER : THIS IS A VISIT SUMMARY EXTRACTED FROM THE [employer] [employer] CHART. IT IS NOT A COPY OF THE [employer] PROGRESS NOTE. MTDD
== END ==
LOC: M PAIN 13:35
PROVIDERS: ATTEND Nurse Practitioner Family
DX: M79.1 Myalgia (principal); M51.14 Intervertebral disc disorders with radiculopathy, thoracic region; E11.9 Type 2 diabetes mellitus without complications; I11.9 Hypertensive heart disease without heart failure; I50.40 Unspecified combined systolic (congestive) and diastolic (congestive) heart failure; E03.9 Hypothyroidism, unspecified; E55.9 Vitamin D deficiency, unspecified; J44.9 Chronic obstructive pulmonary disease, unspecified; Z79.891 Long term (current) use of opiate analgesic; Z79.899 Other long term (current) drug therapy; Z79.82 Long term (current) use of aspirin; Z79.84 Long term (current) use of oral hypoglycemic drugs; Z91.041 Radiographic dye allergy status; Z91.018 Allergy to other foods; Z88.8 Allergy status to other drugs, medicaments and biological substances

== ENCOUNTER → 2017-05-16 | Outpatient (CLI) | payer OTHER ==
[~2017-05-16] MED LIST changes: +BUPIVACAINE HCL 0.25% 30 ML VIAL As Ordered ONE; +ISOVUE-M 300 61% 15ML VIAL (Q9967) As Ordered ONE; +LIDOCAINE 1% SDV INJ 30 ML VIAL As Ordered ONE; +TRIAMCINOLONE ACETONIDE SUSP 40 MG/ML VIAL (J3301) As Ordered ONE
--- NOTE | 2017-05-16 10:33 | REP ---
Partial lumbar spine series: Two views. History: Lumbar facet block for pain. 16 seconds of fluoroscopy time is reported. Findings: A sequence of two last image hold fluoro spot radiographs of the lumbar spine document various needle positions and contrast injections associated with lumbar facet injection procedure. Signed by Lele Mcrae MD 05/16/2017 10:57 A
--- NOTE | 2017-05-30 23:33 | ECWPNPC ---
PATIENT NAME: CAMILO ARMSTRONG : 1960 GENDER: MALE VISIT DATE: 05/16/2017 DISCHARGE DATE: 05/16/17 1026 VISIT LOCKED DATE TIME: PHYSICIAN: THELMA BHARDWAJ PHYSICIAN PAGER NO: TEXT TO [phone] RESOURCE: THELMA BHARDWAJ REASON FOR APPOINTMENT 1. W/C STATE INS FUND BILATERAL LUMBAR FACET BLOCK CURRENT MEDICATIONS TAKING LISINOPRIL 2.5MG TABLET 1 TAB ORALLY AT BEDTIME, NOTES: 05/15/172099 TAKING COREG 12.5MG TABLET 1 TAB ORALLY TWICE DAILY, NOTES: 05/16/17629 TAKING ASPIRIN 81 MG TABLET DELAYED RELEASE 1 TAB ORALLY DAILY, NOTES: 05/15/172099 TAKING LIPITOR 80 MG TABLET 1 TABLET ORALLY ONCE A DAY AT BEDTIME, NOTES: 05/15/172099 TAKING ALDACTONE 25 MG TABLET 1 TAB ORALLY DAILY, NOTES: 05/15/172099 TAKING LASIX 40 MG TABLET 1 TAB ORALLY DAILY NEEDED, NOTES: NONE LATELY TAKING OMEPRAZOLE 40 MG CAPSULE DELAYED RELEASE 1 CAPSULE ORALLY TWICE A DAY, NOTES: 05/16/17629 TAKING NASACORT AQ 55 MCG/ACT AEROSOL 1 PUFF IN EACH NOSTRIL NASALLY ONCE A DAY, NOTES: NONE LATELY TAKING LEVOTHYROXINE SODIUM 25 MCG TABLET 1 TABLET ON AN EMPTY STOMACH IN THE MORNING ORALLY ONCE A DAY, NOTES: 05/16/17629 TAKING METFORMIN HCL 500 MG TABLET 1 TABLET WITH MEALS IN AM, 2 TABS IN THE PM ORALLY 500MG AM, 1000MG AT BEDTIME, NOTES: 05/15/172099 TAKING AVODART 0.5 MG CAPSULE 1 CAPSULE ORALLY ONCE A DAY, NOTES: 05/15/172099 TAKING ADVAIR DISKUS 250-50 MCG/DOSE MISCELLANEOUS 1 INHALATION. ALWAYS RINSE YOUR MOUTH OUT AFTER USE DAILY, NOTES: 05/16/17629 TAKING VENTOLIN HFA 108 (90 BASE) MCG/ACT AEROSOL SOLUTION 2 PUFFS INHALATION EVERY 4-6 HOURS NEEDED, NOTES: NONE LATELY TAKING MECLIZINE HCL 25 MG TABLET 1 TABLET ORALLY 1-2 TIMES DAILY NEEDED, NOTES: 05/16/17629 TAKING OXYBUTYNIN CHLORIDE ER 5 MG TABLET EXTENDED RELEASE 24 HOUR DIRECTED ORALLY DAILY, NOTES: 05/16/17629 TAKING KETOCONAZOLE 2 % CREAM 1 APPLICATION TO AFFECTED AREA EXTERNALLY ONCE A DAY, NOTES: NONE LATELY TAKING NITROSTAT 0.4 MG TABLET SUBLINGUAL 1 TAB SUBLINGUAL TAB1 TAB FOR CHEST PAIN IF NO RELIEF IN 5 MINUTES TAKE 2ND NITRO IF NO RELIEF AFTER 5 MINUTES TAKE 3RD NITRO ER, NOTES: NONE LATELY TAKING VITAMIN D3 2000 UNITS TABLET 1 TAB ORALLY ONCE A DAY, NOTES: 05/15/172099 TAKING MIRALAX 17 GM POWDER 17GM ORALLY DAILY NEEDED, NOTES: NONE LATELY TAKING MAGNESIUM 64 MG CAPSULE 1 TAB ORALLY TWICE A DAY, NOTES: 05/16/17629 TAKING CLOBETASOL PROPIONATE 0.05 % CREAM 1 APPLICATION TO RECTAL AREA EXTERNALLY TWICE A DAY NEEDED, NOTES: NONE LATELY TAKING ZONISAMIDE 50 MG CAPSULE 1 CAP ORALLY ONCE DAILY, NOTES: TAKING TAMSULOSIN HCL 0.4 MG CAPSULE 1 CAPSULE 30 MINUTES AFTER THE SAME MEAL EACH DAY ORALLY ONCE A DAY, NOTES: 05/15/172099 TAKING CYMBALTA 20 MG CAPSULE DELAYED RELEASE PARTICLES 1 CAPSULE ORALLY ONCE A DAY, NOTES: 05/15/171799 TAKING MOVANTIK 25 MG TABLET 1 TABLET IN THE MORNING ORALLY ONCE A DAY, NOTES: NEVER RECEIVED TAKING DETROL 2 MG TABLET 1 TABLET ORALLY TWICE A DAY, NOTES: 05/16/17629 TAKING SKELAXIN 800 MG TABLET 1 TABLET ORALLY FOUR TIMES DAY WORKMEN COMP, NOTES: 05/16/17629 TAKING GABAPENTIN 300 MG CAPSULE 1 CAPSULE ORALLY FOR PAIN FOUR TIMES DAILY MDD4, NOTES: 05/16/17629 TAKING ZYRTEC 10 MG TABLET 1 TABLET ORALLY ONCE A DAY, NOTES: 05-15-172099 TAKING PERCOCET 5-325 MG TABLET 1 TABLET ORALLY Q 4 HRS PRN PAIN MDD=5, NOTES: 05-16-17699 TAKING COLACE 100 MG CAPSULE 1 CAPSULE NEEDED ORALLY TWICE DAILY, NOTES: 05-16-17599 TAKING TRAMADOL HCL ER 100 MG TABLET EXTENDED RELEASE 24 HOUR 1 TABLET ORALLY ONCE A DAY MDD=1, NOTES: 05-16-17899 NOT-TAKING DRISDOL 61558 UNIT CAPSULE 1 CAPSULE ORALLY ONCE WEEKLY FOR 10 WEEKS UNKNOWN MULTIVITAMINS 1 TABLET DIRECTED ORALLY DAILY, NOTES: 09-07-16 07 UNKNOWN ALCOHOL PREP PAD 70 % PAD DIRECTED EXTERNALLY TID PRN DX: 250.02 UNKNOWN ONE TOUCH ULTRA 2 LANCET ONE TOUCH ULTRA MINI LANCETS DIRECTED TOP QID AND PRN DX 250.00 UNKNOWN ONE TOUCH ULTRA 2 STRIPS ONE TOUCH ULTRA MINI STRIPS DIRECTED TOP QID AND PRN DX 250.00 MEDICATION LIST REVIEWED AND RECONCILED WITH THE PATIENT PAST MEDICAL HISTORY COPD- SPIROMETRY- 02/05/14- DECLINES AT THIS TIME CHF (SYSTOLIC AND DIASTOLIC)- CANNY HYPERLIPIDEMIA HYPERTENSION GERD CHRONIC LOW BACK PAIN- W COMP- DR BOJORQUEZ- CHRONIC PAIN MEDS PER [facility] PAIN MANAGEMENT. CHRONIC RT KNEE PAIN VERTIGO (SINCE 1990) OBESITY H/O HEAVY ALCOHOL USE (IN REMISSION) ASCVD 10-YEAR RISK IS 3.6% IN HTE COLONOSCOPY 2009 ALLERGIES RED DYE: RASH TOMATO: NAUSEA/VOMITING: ALLERGY FINASTERIDE: FLARED CHF: CONTRAINDICATION NSAIDS: CONGESTIVE FAILURE: CONTRAINDICATION VOLTAREN: GEL/ SPASMS/PAIN: ALLERGY LYRICA: CONTRAINDICATION VITAL SIGNS WT 248.6 LBS, HT 72 IN, BMI 33.71 INDEX, BP 129/63 MM HG, HR 75 /MIN, RR 16 /MIN, TEMP 97.0 F, OXYGEN SAT % 91%, NA INITIALS SC 08:49. ASSESSMENTS SPONDYLOSIS WITHOUT MYELOPATHY OR RADICULOPATHY, LUMBAR REGION - M47.816 (PRIMARY) SPONDYLOSIS WITHOUT MYELOPATHY OR RADICULOPATHY, LUMBOSACRAL REGION - M47.817 PROCEDURES PN LUMBAR FACET BLOCK THERAPEUTIC PRE PROCEDURE DIAGNOSIS LUMBAR SPONDYLOSIS, LUMBOSACRAL SPONDYLOSIS POST PROCEDURE DIAGNOSIS LUMBAR SPONDYLOSIS, LUMBOSACRAL SPONDYLOSIS PROCEDURE BILATERAL L4 - L5 AND BILATERAL L5 - S1 LUMBAR FACET THERAPEUTIC BLOCK SURGEON DR. THELMA BHARDWAJ BAKERY ASSOCIATE NONE ANESTHESIA LOCAL PRE PROCEDURE NOTE THE PATIENT HAS A HISTORY OF CHRONIC LOW BACK PAIN. I EVALUATE THE PATIENT AND REVIEWED THE CHART. I WENT OVER THE RISKS, ALTERNATIVES, AND BENEFITS ASSOCIATED WITH THIS PROCEDURE. THE PATIENT WOULD LIKE TO PROCEED AND GIVE CONSENT TO PERFORMED THE PROCEDURE. THE PATIENT DENIES UNEXPLAINABLE WEIGHT LOSS, FEVER, CHILLS, OR NEW CHANGES IN URINARY OR BOWEL CONTROL DESCRIPTION OF PROCEDURE THE PATIENT WAS BROUGHT TO THE PROCEDURE ROOM AND PLACED IN THE PRONE POSITION. THE LUMBOSACRAL AREA WAS CLEANED WITH CHLORAPREP SOLUTION AND DRAPED ASEPTICALLY. THE PROCEDURE WAS DONE UNDER STERILE CONDITIONS. I CHECKED LATERALITY AND THE LEVEL WHERE THE PROCEDURE WAS GOING TO BE PERFORMED WITH THE PATIENT AND THE SUPPORTING STAFF AT THE MOMENT OF THE TIME OUT IN THE PROCEDURE ROOM. UNDER FLUOROSCOPIC GUIDANCE, THE TARGET POINT WAS SELECTED AT THE RIGHT AND LEFT L4-L5 FACET JOINT AND AT THE RIGTH AND LEFT L5-S1 FACET JOINT. TARGET POINT WAS SELECTED AFTER LATERAL ROTATION AND TILT OF THE MAGNIFIER OF THE C-ARM. LIDOCAINE 0.5% WAS USED TO NUMB THE SKIN AND THE SUBCUTANEOUS TISSUE BELOW IT. SPINAL NEEDLES, 22-GAUGE, WERE ADVANCED UNDER FLUOROSCOPIC GUIDANCE AND FOLLOWING PATIENT FEEDBACK UNTIL THE TARGETS WERE TOUCHED. THE POSITION OF THE NEEDLES WAS VERIFIED WITH AP AND LATERAL VIEWS. AFTER PROPER POSITION OF THE NEEDLES WAS ACHIEVED, ISOVUE-M DYE 30% 0.1 ML WAS INJECTED SHOWING ADEQUATE SPREAD OF THE DYE. THEN A SOLUTION OF 1.9 ML OF BUPIVACAINE 0.125% OF KENALOG 10 MG WAS INJECTED AT EACH SITE. THERE WAS NO EVIDENCE OF BLOOD, PARESTHESIA OR CEREBROSPINAL FLUID DURING THE PROCEDURE. THE PATIENT WAS SENT TO THE RECOVERY ROOM. THE PATIENT WAS MOVING THE EXTREMITIES AND DOING WELL. THERE WAS NO COMPLICATION DURING THE PROCEDURE. FLUOROSCOPY TIME WAS 16 SECONDS POST PROCEDURE NOTE THE PATIENT WILL BE SEEN IN A FOLLOW UP IN THE NEXT FEW WEEKS. INSTRUCTIONS WERE GIVEN, QUESTIONS WERE ANSWERED, AND THE PATIENT EXPRESSED UNDERSTANDING AND AGREES WITH THE PLAN. I TERI COTTER DOCUMENTED THE ABOVE INFORMATION ACTING A [employer] ENGINEER FOR DR. BHARDWAJ. I HAVE REVIEWED THE ABOVE DOCUMENT WRITTEN BY TERI COTTER SCRIBWillard AND I VERIFY THAT IT IS ACCURATE. PROCEDURE CODES 22283 INJ PARAVERT F JNT L/S 1 LEV 69559 INJ PARAVERT F JNT L/S 2 LEV 6045F RADXPS IN END [id number] PXD DISPOSITION & COMMUNICATION FOLLOW UP 3 WEEKS ELECTRONICALLY SIGNED BY THELMA BHARDWAJ MD ON 05/30/2017 AT 08:20 PM EDT DISCLAIMER : THIS IS A VISIT SUMMARY EXTRACTED FROM THE [employer] CHART. IT IS NOT A COPY OF THE [employer] PROGRESS NOTE. MTDD
== END ==
LOC: M PAIN 08:45
PROVIDERS: ATTEND Anesthesiology
DX: G89.29 Other chronic pain (principal); M47.816 Spondylosis without myelopathy or radiculopathy, lumbar region; M47.817 Spondylosis without myelopathy or radiculopathy, lumbosacral region; M54.5 Low back pain; M79.1 Myalgia; M51.16 Intervertebral disc disorders with radiculopathy, lumbar region; I50.9 Heart failure, unspecified; E78.5 Hyperlipidemia, unspecified; J44.9 Chronic obstructive pulmonary disease, unspecified; E11.9 Type 2 diabetes mellitus without complications; N40.1 Benign prostatic hyperplasia with lower urinary tract symptoms; K21.9 Gastro-esophageal reflux disease without esophagitis; Z79.82 Long term (current) use of aspirin; Z79.84 Long term (current) use of oral hypoglycemic drugs; Z79.899 Other long term (current) drug therapy; Z79.891 Long term (current) use of opiate analgesic; Z91.09 Other allergy status, other than to drugs and biological substances; Z91.018 Allergy to other foods; Z88.8 Allergy status to other drugs, medicaments and biological substances
CPT/HCPCS: 64493; 64494; J3301; Q9967

== ENCOUNTER → 2017-05-26 | Outpatient (REF) | payer OTHER ==
[~2017-05-26] MED LIST changes: -BUPIVACAINE HCL 0.25% 30 ML VIAL As Ordered ONE; -ISOVUE-M 300 61% 15ML VIAL (Q9967) As Ordered ONE; -LIDOCAINE 1% SDV INJ 30 ML VIAL As Ordered ONE; -TRIAMCINOLONE ACETONIDE SUSP 40 MG/ML VIAL (J3301) As Ordered ONE
[2017-05-26 18:53] LABS: IONIZED CALCIUM 4.8 MG/DL (4.5-5.3)
[2017-05-26 19:44] LABS: ALBUMIN 3.7 GM/DL (3.2-5.2); ANION GAP 7 MEQ/L (8-16); BLOOD UREA NITROGEN 19 MG/DL (7-18); CALCIUM LEVEL 8.8 MG/DL (8.5-10.1); CARBON DIOXIDE LEVEL 30 MEQ/L (21-32); CHLORIDE LEVEL 105 MEQ/L (98-107); CREATININE FOR GFR 0.85 MG/DL (0.70-1.30); GLOMERULAR FILTRATION RATE > 60.0 (>56); GLUCOSE, FASTING 127 MG/DL (70-105); MAGNESIUM LEVEL 2.1 MG/DL (1.8-2.4); PHOSPHORUS LEVEL 2.9 MG/DL (2.5-4.9); POTASSIUM SERUM 4.2 MEQ/L (3.5-5.1); SODIUM LEVEL 142 MEQ/L (136-145)
== END ==
LOC: M SFHCPLAZ 15:39
PROVIDERS: ATTEND Family Medicine
DX: R25.2 Cramp and spasm (principal); E55.9 Vitamin D deficiency, unspecified

== ENCOUNTER → 2017-06-24 | Outpatient (CLI) | payer OTHER ==
--- NOTE | 2017-07-25 00:19 | ECWPNPC ---
PATIENT NAME: CAMILO ARMSTRONG : 1960 GENDER: MALE VISIT DATE: 06/24/2017 DISCHARGE DATE: 06/24/17 1151 VISIT LOCKED DATE TIME: PHYSICIAN: CELINA FORD PHYSICIAN PAGER NO: TEXT TO [phone] RESOURCE: CELINA FORD REASON FOR APPOINTMENT 1. WC, POST LUMBAR FACET HISTORY OF PRESENT ILLNESS HISTORY OF PRESENT ILLNESS: PAIN THE PATIENT DESCRIBES THE PAIN... FALL RISK SCREENING: SCREENING :NO FALLS IN THE PAST YEAR TODAY'S VISIT: NOTES: WC ([facility]) FOR LOW BACK. IS S/P BILATERAL LUMBAR LUMBAR FACET BLOCK COMPLETED ON 05/16/17 AND THIS HAS PRODUCED 50% OR GREATER IMPROVEMENT IN LOW BACK PAIN. HAS NOTED SIGNIFICANT IMPROVEMNT IN ABILITY TO STAND, WALK AND GO ABOUT ROUTINE [employer]IVITY. . CURRENT MEDICATIONS TAKING LISINOPRIL 2.5MG TABLET 1 TAB ORALLY AT BEDTIME TAKING COREG 12.5MG TABLET 1 TAB ORALLY TWICE DAILY TAKING ASPIRIN 81 MG TABLET DELAYED RELEASE 1 TAB ORALLY DAILY TAKING LIPITOR 80 MG TABLET 1 TABLET ORALLY ONCE A DAY AT BEDTIME TAKING ALDACTONE 25 MG TABLET 1 TAB ORALLY DAILY TAKING LASIX 40 MG TABLET 1 TAB ORALLY DAILY NEEDED TAKING NASACORT AQ 55 MCG/ACT AEROSOL 1 PUFF IN EACH NOSTRIL NASALLY ONCE A DAY TAKING AVODART 0.5 MG CAPSULE 1 CAPSULE ORALLY ONCE A DAY TAKING ADVAIR DISKUS 250-50 MCG/DOSE MISCELLANEOUS 1 INHALATION. ALWAYS RINSE YOUR MOUTH OUT AFTER USE DAILY TAKING VENTOLIN HFA 108 (90 BASE) MCG/ACT AEROSOL SOLUTION 2 PUFFS INHALATION EVERY 4-6 HOURS NEEDED TAKING MECLIZINE HCL 25 MG TABLET 1 TABLET ORALLY 1-2 TIMES DAILY NEEDED TAKING OXYBUTYNIN CHLORIDE ER 5 MG TABLET EXTENDED RELEASE 24 HOUR DIRECTED ORALLY DAILY TAKING NITROSTAT 0.4 MG TABLET SUBLINGUAL 1 TAB SUBLINGUAL TAB1 TAB FOR CHEST PAIN IF NO RELIEF IN 5 MINUTES TAKE 2ND NITRO IF NO RELIEF AFTER 5 MINUTES TAKE 3RD NITRO ER TAKING VITAMIN D3 2000 UNITS TABLET 1 TAB ORALLY ONCE A DAY TAKING MIRALAX 17 GM POWDER 17GM ORALLY DAILY NEEDED TAKING MAGNESIUM 64 MG CAPSULE 1 TAB ORALLY TWICE A DAY TAKING ZONISAMIDE 50 MG CAPSULE 1 CAP ORALLY ONCE DAILY TAKING TAMSULOSIN HCL 0.4 MG CAPSULE 1 CAPSULE 30 MINUTES AFTER THE SAME MEAL EACH DAY ORALLY ONCE A DAY TAKING CYMBALTA 20 MG CAPSULE DELAYED RELEASE PARTICLES 1 CAPSULE ORALLY ONCE A DAY TAKING DETROL 2 MG TABLET 1 TABLET ORALLY TWICE A DAY TAKING SKELAXIN 800 MG TABLET 1 TABLET ORALLY FOUR TIMES DAY WORKMEN COMP TAKING GABAPENTIN 300 MG CAPSULE 1 CAPSULE ORALLY FOR PAIN FOUR TIMES DAILY MDD4 TAKING ZYRTEC 10 MG TABLET 1 TABLET ORALLY ONCE A DAY TAKING COLACE 100 MG CAPSULE 1 CAPSULE NEEDED ORALLY TWICE DAILY TAKING TRAMADOL HCL ER 100 MG TABLET EXTENDED RELEASE 24 HOUR 1 TABLET ORALLY ONCE A DAY MDD=1 TAKING METFORMIN HCL 500 MG TABLET 1 TABLET WITH MEALS IN AM, 2 TABS IN THE PM ORALLY 500MG AM, 1000MG AT BEDTIME TAKING PERCOCET 5-325 MG TABLET 1 TABLET ORALLY Q 4 HRS PRN PAIN MDD=5 TAKING LEVOTHYROXINE SODIUM 25 MCG TABLET TAKE ONE TABLET BY MOUTH EVERY MORNING ON AN EMPTY STOMACH TAKING OMEPRAZOLE 40 MG CAPSULE DELAYED RELEASE 1 CAPSULE ORALLY ONCE A DAY TAKING DRISDOL 52358 UNIT CAPSULE 1 CAPSULE ORALLY ONCE EVERYOTHER WEEK TAKING CLOBETASOL PROPIONATE 0.05 % CREAM 1 APPLICATION TO RECTAL AREA EXTERNALLY TWICE A DAY NEEDED TAKING MULTIVITAMINS 1 TABLET DIRECTED ORALLY DAILY NOT-TAKING KETOCONAZOLE 2 % CREAM 1 APPLICATION TO AFFECTED AREA EXTERNALLY ONCE A DAY NEEDED DISCONTINUED ADVAIR DISKUS 250-50 MCG/DOSE AEROSOL POWDER BREATH ACTIVATED INHALE ONE PUFF BY MOUTH EVERY DAY RISNE MOUTH AFTER USE UNKNOWN MOVANTIK 25 MG TABLET 1 TABLET IN THE MORNING ORALLY ONCE A DAY, NOTES: NEVER RECEIVED UNKNOWN ALCOHOL PREP PAD 70 % PAD DIRECTED EXTERNALLY TID PRN DX: 250.02 UNKNOWN ONE TOUCH ULTRA 2 LANCET ONE TOUCH ULTRA MINI LANCETS DIRECTED TOP QID AND PRN DX 250.00 UNKNOWN ONE TOUCH ULTRA 2 STRIPS ONE TOUCH ULTRA MINI STRIPS DIRECTED TOP QID AND PRN DX 250.00 MEDICATION LIST REVIEWED AND RECONCILED WITH THE PATIENT PAST MEDICAL HISTORY COPD- SPIROMETRY- 02/05/14- DECLINES AT THIS TIME CHF (SYSTOLIC AND DIASTOLIC)- [place] HYPERLIPIDEMIA HYPERTENSION GERD CHRONIC LOW BACK PAIN- W COMP- DR BOJORQUEZ- CHRONIC PAIN MEDS PER [facility] PAIN MANAGEMENT. CHRONIC RT KNEE PAIN VERTIGO (SINCE 1990) OBESITY H/O HEAVY ALCOHOL USE (IN REMISSION) ASCVD 10-YEAR RISK IS 3.6% IN HTE COLONOSCOPY 2009 ALLERGIES RED DYE: RASH TOMATO: NAUSEA/VOMITING: ALLERGY FINASTERIDE: FLARED CHF: CONTRAINDICATION NSAIDS: CONGESTIVE FAILURE: CONTRAINDICATION VOLTAREN: GEL/ SPASMS/PAIN: ALLERGY LYRICA: CONTRAINDICATION SOCIAL HISTORY GENERAL: TOBACCO USE ARE YOU A:NONSMOKER ALCOHOL SCREENING DID YOU HAVE A DRINK CONTAINING ALCOHOL IN THE PAST YEAR?NO POINTS0 INTERPRETATIONNEGATIVE CAFFEINE CAFFEINE USE?NO EXERCISE: WALKS. MARITAL STATUS: .. 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 REVIEW OF SYSTEMS REVIEWED BY: PROVIDER: CELINA CNOTRERAS . CONSTITUTIONAL: ANY CHANGE IN YOUR MEDICAL CONDITION? YES, WAS SICK ABOUT A WEEK AND A HALF. FEELS BETTER SINCE COOLER WEATHER. GOING TO HAVE AN ECHO AND STRESS TEST. . CHILLS NO . FEVER NO . INFECTION: DO YOU HAVE NEW INFECTIONS? NO . DO YOU HAVE HISTORY OF MRSA? NO . MUSCULOSKELETAL: ANY NEW PATTERNS OF PAIN OR NUMBNESS? NO . GASTROENTEROLOGY: ANY NEW CHANGE IN BOWEL CONTROL? NO . GENITOURINARY: ANY NEW CHANGE IN BLADDER CONTROL? NO . IS THERE A CHANCE YOU COULD BE ? NO . HEMATOLOGY/LYMPH: DO YOU TAKE ANY BLOOD THINNERS? (FOR EXAMPLE- COUMADIN, PLAVIX, AGGRENOX, PLATEL, PRADAXA, OR XARELTO) NO . WHEN WAS YOUR LAST DOSE? DATE: TIME: . NEUROLOGY: HAVE YOU FALLEN IN THE PAST 6 MONTHS? NO . ANY NEW EXTREMITY NUMBNESS OR WEAKNESS? NO . DIZZINESS SENSATION OF IMBALANCE, LIGHT HEADED - IS BEING CHECK OUT . CARDIOLOGY: DO YOU HAVE A PACEMAKER OR DEFIBRILLATOR? YES . RESPIRATORY: HAVE YOU BEEN SICK IN THE PAST WEEK? NO . FEVER NO . FLU LIKE SYMPTOMS? NO . COUGH NO . INTEGUMENTARY: DO YOU HAVE ANY RASHES OR OPEN SORES? YES, PYLINIDAL CYCST FLARING UP AGAIN . ALLERGIC/IMMUNO: ARE YOU ALLERGIC TO SHELLFISH OR IV DYE? NO . ANY NEW ALLERGIES? NO . PSYCHIATRIC: DO YOU HAVE THOUGHTS OF HURTING YOURSELF OR SOMEONE ELSE? NO . ARE YOU ABUSED, NEGLECTED, OR IN AN UNSAFE ENVIRONMENT? NO . ENDOCRINOLOGY: ARE YOU DIABETIC? YES - BS 100 . OTHER: DO YOU NEED ANY PRESCRIPTIONS? NO . IF YES, PLEASE LIST: ____ . ANY NEW PROBLEMS WITH YOUR MEDICATIONS? NO . WHEN DID YOU LAST EAT? ____ . WHEN DID YOU LAST DRINK? ____ . WHAT DID YOU LAST DRINK? ____ . NAME OF PERSON DRIVING YOU HOME? ____ . DO YOU HAVE ANY OTHER QUESTIONS OR CONCERNS YES, VERY HAPPY WITH RESULTS FROM THE LUMBAR FACETS . SKIN: DO YOU HAVE ANY RASHES OR OPEN SORES? PILODENIAL CYST BEING TREATED BY PCP . VITAL SIGNS WT 244 LBS, HT 72 IN, BMI 33.09 INDEX, BP 118/65 MM HG, HR 79 /MIN, RR 18 /MIN, TEMP 96.9 F, OXYGEN SAT % 95%, NA INITIALS CM 1114. EXAMINATION GENERAL EXAMINATION: PSYCHALERT , ORIENTED X 3 , APPROPRIATE MOOD AND AFFECT . LUNGS:CLEAR TO AUSCULTATION BILATERALLY, NO WHEEZES, RALES OR RHONCHI. HEART:HEART RATE REGULAR, NO CAROTID BRUITS. MUSCULOSKELETAL:POINT TENDERNESS OVER LUMBAR SPINOUS PROCESSES AND ACROSS LUMBAR FACETSS. SLOW TO RISE TO STANDING POSITION. POSTURE UPRIGHT. TENDER WITH PALPATION BILATERAL OVER SACRALILIAC JOINTS. ASSESSMENTS LUMBAR FACET ARTHROPATHY - M12.88 (PRIMARY) TREATMENT LUMBAR FACET ARTHROPATHY NOTES: [facility] CARDIAC WORKUP AND HEALING OF CYST - WHEN DONE WILL CONSIDER DIAGNISTIC LUMBAR FACET BLOCKS AND POSSIBLE RADIOFREQUENCYCONTINUE CURRENT MEDS. USE PAIN MEDS LITTLE POSSIBLE. PROCEDURES PN WORKMANS' COMP OPINION IN YOUR OPINION, WAS THE INCIDENT THAT THE PATIENT DESCRIBED THE COMPETENT MEDICAL CAUSE OF THIS INJURY/ILLNESS? YES ARE THE PATIENT'S COMPLAINTS CONSISTENT WITH HIS/HER HISTORY OF THE INJURY/ILLNESS? YES IS THE PATIENT'S HISTORY OF THE INJURY/ILLNESS CONSISTENT WITH YOUR OBJECTIVE FINDING? YES WHAT IS THE PERCENTAGE OF TEMPORARY IMPAIRMENT? MODERATE TO MARKED = 66.7% IS THE PATIENT WORKING? NO DOCTOR ON SITE: THELMA NUNEZ MD PROCEDURE CODES FA211 ESTABILISHED PATIENT RELIGIOUS FACILITY CHARGE DISPOSITION & COMMUNICATION FOLLOW UP 6 WEEKS (REASON: WC LOW BACK) ELECTRONICALLY SIGNED BY ESCOBAR VALENTIN ON 07/24/2017 AT 08:26 PM EDT DISCLAIMER : THIS IS A VISIT SUMMARY EXTRACTED FROM THE [employer] CHART. IT IS NOT A COPY OF THE [facility] PROGRESS NOTE. JULIETA
== END ==
LOC: M PAIN 11:00
PROVIDERS: ATTEND Nurse Practitioner Family
DX: G89.29 Other chronic pain (principal); M12.88 Other specific arthropathies, not elsewhere classified, other specified site; E11.9 Type 2 diabetes mellitus without complications; I11.0 Hypertensive heart disease with heart failure; E03.9 Hypothyroidism, unspecified; I50.9 Heart failure, unspecified; E55.9 Vitamin D deficiency, unspecified; K21.9 Gastro-esophageal reflux disease without esophagitis; J44.9 Chronic obstructive pulmonary disease, unspecified; R42 Dizziness and giddiness; Z88.8 Allergy status to other drugs, medicaments and biological substances; Z88.6 Allergy status to analgesic agent; Z91.018 Allergy to other foods; Z91.02 Food additives allergy status; Z79.82 Long term (current) use of aspirin; Z79.891 Long term (current) use of opiate analgesic; Z79.84 Long term (current) use of oral hypoglycemic drugs; Z79.899 Other long term (current) drug therapy; Z95.811 Presence of heart assist device

== ENCOUNTER → 2017-08-05 | Outpatient (CLI) | payer OTHER | LOC: M PAIN 09:45 | PROVIDERS: ATTEND Nurse Practitioner Family | DX: G89.29 Other chronic pain (principal); M54.5 Low back pain; M12.88 Other specific arthropathies, not elsewhere classified, other specified site; M79.1 Myalgia; E11.9 Type 2 diabetes mellitus without complications; I11.0 Hypertensive heart disease with heart failure; I50.9 Heart failure, unspecified; E03.9 Hypothyroidism, unspecified; E55.9 Vitamin D deficiency, unspecified; K21.9 Gastro-esophageal reflux disease without esophagitis; E78.5 Hyperlipidemia, unspecified; J44.9 Chronic obstructive pulmonary disease, unspecified; Z91.02 Food additives allergy status; Z91.018 Allergy to other foods; Z88.6 Allergy status to analgesic agent; Z88.8 Allergy status to other drugs, medicaments and biological substances; Z79.82 Long term (current) use of aspirin; Z79.891 Long term (current) use of opiate analgesic; Z79.899 Other long term (current) drug therapy; Z95.811 Presence of heart assist device ==

== ENCOUNTER → 2017-08-25 | Outpatient (CLI) | payer OTHER ==
[~2017-08-25] MED LIST changes: +BUPIVACAINE HCL 0.25% 30 ML VIAL As Ordered ONE; +ISOVUE-M 300 61% 15ML VIAL (Q9967) As Ordered ONE; +LIDOCAINE 1% SDV INJ 30 ML VIAL As Ordered ONE; +TRIAMCINOLONE ACETONIDE SUSP 40 MG/ML VIAL (J3301) As Ordered ONE
--- NOTE | 2017-08-25 13:17 | REP ---
Partial thoracic spine series: Single view. History: Injection procedure for pain. 25 seconds of fluoroscopy time is reported. Findings: A single last image hold fluoroscopic spot radiograph of the thoracic spine documents various needle positions and contrast injections for thoracic facet injection procedure. Signed by Lele Mcrae MD 08/25/2017 04:08 P
--- NOTE | 2017-09-07 00:18 | ECWPNPC ---
PATIENT NAME: CAMILO ARMSTRONG : 1960 GENDER: MALE VISIT DATE: 08/25/2017 DISCHARGE DATE: 08/25/17 1159 VISIT LOCKED DATE TIME: PHYSICIAN: THELMA BHARDWAJ PHYSICIAN PAGER NO: TEXT TO [phone] RESOURCE: THELMA BHARDWAJ REASON FOR APPOINTMENT 1. WC, EULA FACET HISTORY OF PRESENT ILLNESS FALL RISK SCREENING: SCREENING :NO FALLS IN THE PAST YEAR PAIN SCREENING: PATIENT HAS A COMPLAINT OF ACUTE OR CHRONIC PAIN :YES CURRENT MEDICATIONS TAKING LISINOPRIL 2.5MG TABLET 1 TAB ORALLY AT BEDTIME, NOTES: 08/24 7PM TAKING COREG 12.5MG TABLET 1 TAB ORALLY TWICE DAILY, NOTES: 08/25 8AM TAKING ASPIRIN 81 MG TABLET DELAYED RELEASE 1 TAB ORALLY DAILY, NOTES: 08/24 7PM TAKING ALDACTONE 25 MG TABLET 1/2 TAB ORALLY DAILY, NOTES: 08/24 7PM TAKING LASIX 40 MG TABLET 1 TAB ORALLY DAILY NEEDED, NOTES: MONTHS AGO TAKING NASACORT AQ 55 MCG/ACT AEROSOL 1 PUFF IN EACH NOSTRIL NASALLY ONCE A DAY, NOTES: 08/23 7PM TAKING AVODART 0.5 MG CAPSULE 1 CAPSULE ORALLY ONCE A DAY, NOTES: 08/24 7PM TAKING ADVAIR DISKUS 250-50 MCG/DOSE MISCELLANEOUS 1 INHALATION. ALWAYS RINSE YOUR MOUTH OUT AFTER USE DAILY, NOTES: 08/25 8AM TAKING VENTOLIN HFA 108 (90 BASE) MCG/ACT AEROSOL SOLUTION 2 PUFFS INHALATION EVERY 4-6 HOURS NEEDED, NOTES: MONTHS AGO TAKING OXYBUTYNIN CHLORIDE ER 5 MG TABLET EXTENDED RELEASE 24 HOUR DIRECTED ORALLY DAILY, NOTES: 08/25 8AM TAKING NITROSTAT 0.4 MG TABLET SUBLINGUAL 1 TAB SUBLINGUAL TAB1 TAB FOR CHEST PAIN IF NO RELIEF IN 5 MINUTES TAKE 2ND NITRO IF NO RELIEF AFTER 5 MINUTES TAKE 3RD NITRO ER, NOTES: YEARS AGO TAKING VITAMIN D3 2000 UNITS TABLET 1 TAB ORALLY ONCE A DAY, NOTES: 08/24 7PM TAKING MIRALAX 17 GM POWDER 17GM ORALLY DAILY NEEDED, NOTES: MONTHS AGO TAKING MAGNESIUM 64 MG CAPSULE 1 TAB ORALLY TWICE A DAY, NOTES: 08/24 8AM TAKING ZONISAMIDE 50 MG CAPSULE 1 CAP ORALLY ONCE DAILY, NOTES: 08/24 7PM TAKING CYMBALTA 20 MG CAPSULE DELAYED RELEASE PARTICLES 1 CAPSULE ORALLY ONCE A DAY, NOTES: 08/24 7PM TAKING SKELAXIN 800 MG TABLET 1 TABLET ORALLY FOUR TIMES DAY WORKMEN COMP, NOTES: 08/25 8AM TAKING ZYRTEC 10 MG TABLET 1 TABLET ORALLY ONCE A DAY, NOTES: 08/24 7PM TAKING COLACE 100 MG CAPSULE 1 CAPSULE NEEDED ORALLY TWICE DAILY, NOTES: 08/25 8AM TAKING METFORMIN HCL 500 MG TABLET ORALLY 500 MG IN AM AND 1000MG AT DINNER, NOTES: 08/24 7PM TAKING LEVOTHYROXINE SODIUM 25 MCG TABLET TAKE ONE TABLET BY MOUTH EVERY MORNING ON AN EMPTY STOMACH , NOTES: 08/25 8AM TAKING OMEPRAZOLE 40 MG CAPSULE DELAYED RELEASE 1 CAPSULE ORALLY ONCE A DAY, NOTES: 08/24 7PM TAKING DRISDOL 40399 UNIT CAPSULE 1 CAPSULE ORALLY ONCE EVERYOTHER WEEK, NOTES: 08/20 8AM TAKING CLOBETASOL PROPIONATE 0.05 % CREAM 1 APPLICATION TO RECTAL AREA EXTERNALLY TWICE A DAY NEEDED, NOTES: 2 WEEKS TAKING MULTIVITAMINS 1 TABLET DIRECTED ORALLY DAILY, NOTES: 08/25 8AM TAKING DETROL 2 MG TABLET 1 TABLET ORALLY TWICE A DAY, NOTES: 08/24 7PM TAKING KETOCONAZOLE 2 % CREAM 1 APPLICATION TO AFFECTED AREA EXTERNALLY ONCE A DAY NEEDED, NOTES: 2 WEEKS AGO TAKING ALCOHOL PREP PAD 70 % PAD DIRECTED EXTERNALLY TID PRN DX: 250.02 TAKING ONE TOUCH ULTRA 2 LANCET ONE TOUCH ULTRA MINI LANCETS DIRECTED TOP QID AND PRN DX 250.00 TAKING ONE TOUCH ULTRA 2 STRIPS ONE TOUCH ULTRA MINI STRIPS DIRECTED TOP QID AND PRN DX 250.00 TAKING MECLIZINE HCL 25 MG TABLET 1 TABLET ORALLY 1-2 TIMES DAILY NEEDED, NOTES: 08/25 8AM TAKING ADVAIR DISKUS 250-50 MCG/DOSE AEROSOL POWDER BREATH ACTIVATED INHALE ONE PUFF BY MOUTH EVERY DAY RISNE MOUTH AFTER USE TAKING GABAPENTIN 300 MG CAPSULE 1 CAPSULE ORALLY FOR PAIN FOUR TIMES DAILY MDD4, NOTES: 08/25 8AM TAKING LIPITOR 80 MG TABLET 1 TABLET ORALLY ONCE A DAY AT BEDTIME, NOTES: 08/23 7PM TAKING TRAMADOL HCL ER 100 MG TABLET EXTENDED RELEASE 24 HOUR 1 TABLET ORALLY ONCE A DAY MDD=1, NOTES: 08/22 8AM TAKING PERCOCET 5-325 MG TABLET 1 TABLET ORALLY Q 4 HRS PRN PAIN MDD=5, NOTES: 08/25 8AM NOT-TAKING TAMSULOSIN HCL 0.4 MG CAPSULE 1 CAPSULE 30 MINUTES AFTER THE SAME MEAL EACH DAY ORALLY ONCE A DAY NOT-TAKING MOVANTIK 25 MG TABLET 1 TABLET IN THE MORNING ORALLY ONCE A DAY, NOTES: NEVER RECEIVED MEDICATION LIST REVIEWED AND RECONCILED WITH THE PATIENT PAST MEDICAL HISTORY COPD- SPIROMETRY- 02/05/14- DECLINES AT THIS TIME CHF (SYSTOLIC AND DIASTOLIC)- [place] HYPERLIPIDEMIA HYPERTENSION GERD CHRONIC LOW BACK PAIN- W COMP- DR BOJORQUEZ- CHRONIC PAIN MEDS PER [facility] PAIN MANAGEMENT. CHRONIC RT KNEE PAIN VERTIGO (SINCE 1990) OBESITY H/O HEAVY ALCOHOL USE (IN REMISSION) ASCVD 10-YEAR RISK IS 3.6% IN HTE COLONOSCOPY 2009 ALLERGIES RED DYE: RASH TOMATO: NAUSEA/VOMITING: ALLERGY FINASTERIDE: FLARED CHF: CONTRAINDICATION NSAIDS: CONGESTIVE FAILURE: CONTRAINDICATION VOLTAREN: GEL/ SPASMS/PAIN: ALLERGY LYRICA: CONTRAINDICATION SURGICAL HISTORY NO PERSONAL OR FHX SEVERE REACTION TO ANESTHESIA R HUMERUS FIXATION 1972 R MEDIAL MENISCECTOMY 1981 DRAINAGE OF R NECK ? PERITONSILAR ABSCESS 1996 S/P AICD PLACMENT 2007 L4-S1 SPINAL DECOMPRESSION WITH INSTRUMENTED POSTERIOR AND INTERBODY FUSION. DUROTOMY REPAIR. (TIMOTHY @ [facility]) 03/2011 EGD-REINDL NML 03/13/10 COLONOSCOPY- REINDL. DIVERTICULOSIS- REPEAT 5-10 YEARS 03/13/10 RIGHT KNEE SURGERY BY ORTHO 02/05 NEW ICD 12/29/16 SOCIAL HISTORY GENERAL: TOBACCO USE ARE YOU A:NONSMOKER ALCOHOL SCREENING DID YOU HAVE A DRINK CONTAINING ALCOHOL IN THE PAST YEAR?NO POINTS0 INTERPRETATIONNEGATIVE RECREATIONAL DRUG USE DRUG USE?NO CAFFEINE CAFFEINE USE?NO EXERCISE: WALKS. MARITAL STATUS: .. BAPTISM [id number] PENTECOSTAL LANGUAGE LANGUAGES SPOKEN:ANDORRAN LEARNING BARRIERS / SPECIAL NEEDS CHANGE FROM LAST VISIT?NO BARRIERS TO LEARNING?NO HEARING IMPAIRED?NO VISION IMPAIRED?YES COGNITIVELY IMPAIRED?NO :CORRECTIVE LENSES READINESS TO LEARN?YES LEARNING PREFERENCES?NO LEARNING CAPABILITIES PRESENT?YES EMOTIONAL BARRIERS?NO SPECIAL DEVICES?NO TRANSPORTATION ESCORT NEEDED?NO PAIN CLINIC PFS, CLERGY, PUBLIC HEALTH REFERRALS PFS REFERRAL NEEDED?NO CLERGY REFERRAL NEEDED?NO PUBLIC HEALTH REFERRAL NEEDED?NO WAS THE PROVIDER NOTIFIED OF ANY PERTINENT INFO?YES HAS THE PATIENT BEEN EDUCATED REGARDING HIS/HER PLAN OF CARE?YES PLEASE DOCUMENT ANY ADDTIONAL DETAILS. THORACIC FACET THERAPEUTIC BILATERAL HAS THE PATIENT BEEN EDUCATED REGARDING PAIN, THE RISK FOR PAIN, THE IMPORTANCE OF EFFECTIVE PAIN MANAGEMENT, AND THE PAIN ASSESSMENT PROCESS?YES PATIENT: ____. ADVANCE DIRECTIVES HEALTH CARE PROXY?YES NAME OF HCP KEVYN ROMAN AND MARQUITA ARMSTRONG CONTACT # FOR HCP [phone] KEVYN"S NUMBER DO YOU HAVE A COPY WITH YOU?NO POWER OF RAILROAD CROSSING PROTECTION MAINTAINER?NO DO YOU HAVE A DNR?NO WOULD YOU LIKE MORE INFORMATION?NO LIVING WILL?NO WOULD YOU LIKE MORE INFORMATION?NO WOULD YOU LIKE MORE INFORMATION?NO HOSPITALIZATION/MAJOR DIAGNOSTIC PROCEDURE CHF 2008 DOG BITE 01/2015 REVIEW OF SYSTEMS REVIEWED BY: PROVIDER: . CONSTITUTIONAL: ANY CHANGE IN YOUR MEDICAL CONDITION? NO . CHILLS NO . FEVER NO . INFECTION: DO YOU HAVE NEW INFECTIONS? NO . DO YOU HAVE HISTORY OF MRSA? NO . MUSCULOSKELETAL: ANY NEW PATTERNS OF PAIN OR NUMBNESS? NO . SYTEMIC LUPUS NO . GASTROENTEROLOGY: ANY NEW CHANGE IN BOWEL CONTROL? NO . BARRETTS ESOPHAGUS NO . CIRRHOSIS NO . HEPATITIS NO . LIVER FAILURE NO . ACID REFLUX NO . UNEXPLAINED WEIGHT LOSS NO . GENITOURINARY: ANY NEW CHANGE IN BLADDER CONTROL? NO . IS THERE A CHANCE YOU COULD BE ? NO . HEMATOLOGY/LYMPH: DO YOU TAKE ANY BLOOD THINNERS? (FOR EXAMPLE- COUMADIN, PLAVIX, AGGRENOX, PLATEL, PRADAXA, OR XARELTO) NO . WHEN WAS YOUR LAST DOSE? DATE: TIME: . LOW PLATELET COUNT NO . SICKLE CELL DISEASE NO . VON WILLIEBRANDS NO . FACTOR V LEIDEN NO . THALLASEMIA NO . ANEMIA NO . EASY BRUISING NO . NEUROLOGY: HAVE YOU FALLEN IN THE PAST 6 MONTHS? NO . ANY NEW EXTREMITY NUMBNESS OR WEAKNESS? NO . HEAD INJURY NO . DEMENTIA NO . CEREBRAL PALSY NO . MULTIPLE SCLEROSIS NO . DIZZINESS NO . HEADACHE NO . STROKES NO . VERTIGO NO . CARDIOLOGY: DO YOU HAVE A PACEMAKER OR DEFIBRILLATOR? YES, AICD . ANGINA NO . HEART ATTACK NO . HEART SURGERY NO . CONGESTIVE HEART FAILURE/FLUID OVERLOAD NO . CHEST PAIN NO . HIGH BLOOD PRESSURE NO . IRREGULAR HEART BEAT NO . RESPIRATORY: HAVE YOU BEEN SICK IN THE PAST WEEK? NO . FEVER NO . FLU LIKE SYMPTOMS? NO . CPAP NO . BYPAP NO . ASTHMA NO . EMPHYSEMA NO . CHRONIC LUNG DISEASES NO . SHORTNESS OF BREATH ON EXERTION NO . COUGH NO . SNORING NO . INTEGUMENTARY: DO YOU HAVE ANY RASHES OR OPEN SORES? NO . ALLERGIC/IMMUNO: ARE YOU ALLERGIC TO SHELLFISH OR IV DYE? NO . ANY NEW ALLERGIES? NO . PSYCHIATRIC: DO YOU HAVE THOUGHTS OF HURTING YOURSELF OR SOMEONE ELSE? NO . ARE YOU ABUSED, NEGLECTED, OR IN AN UNSAFE ENVIRONMENT? NO . ENDOCRINOLOGY: ARE YOU DIABETIC? YES, FSBS 122 . THYROID DISORDER NO . OTHER: DO YOU NEED ANY PRESCRIPTIONS? YES, TRAMADOL, OXYCODONE . IF YES, PLEASE LIST: ____ . ANY NEW PROBLEMS WITH YOUR MEDICATIONS? YES, CARDIOLOGY HAS STOPPED TAMSILOSIN DUE TO DECREASED BP. . WHEN DID YOU LAST EAT? 08/24 7PM . WHEN DID YOU LAST DRINK? 08/25 8AM . WHAT DID YOU LAST DRINK? WATER . NAME OF PERSON DRIVING YOU HOME? KEVYN ABEL . DO YOU HAVE ANY OTHER QUESTIONS OR CONCERNS NO . VITAL SIGNS WT 242 LBS, HT 72 IN, BMI 32.82 INDEX, BP 123/60 MM HG, HR 79 /MIN, RR 18 /MIN, TEMP 96.4 F, OXYGEN SAT % 94%, SAFE IN ENV? (Y/N) Y, NA INITIALS SC 10:10, REVIEWED BY: KEESHA. 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 THELMA BHARDWAJ AQUATIC BIOLOGIST NONE ANESTHESIA LOCAL PRE PROCEDURE NOTE THE PATIENT WITH HISTORY OF CHRONIC THORACIC PAIN. I EVALUATED THE PATIENT AND REVIEWED THE CHART. I WENT OVER THE RISKS, ALTERNATIVES, AND BENEFITS ASSOCIATED WITH THIS PROCEDURE. THE PATIENT WOULD LIKE TO PROCEED AND GAVE CONSENT TO PERFORM THE PROCEDURE. THE PATIENT DENIES UNEXPLAINABLE WEIGHT LOSS, FEVER, CHILLS, OR NEW CHANGES IN URINARY OR BOWEL CONTROL. DESCRIPTION OF PROCEDURE THE PATIENT WAS BROUGHT TO THE PROCEDURE ROOM AND PLACED IN THE PRONE POSITION. THE THORACIC AREA WAS CLEANED WITH CHLORAPREP SOLUTION AND DRAPED ASEPTICALLY. THE PROCEDURE WAS DONE UNDER STERILE CONDITIONS. I CHECKED LATERALITY AND THE LEVEL WHERE THE PROCEDURE WAS GOING TO BE PERFORMED WITH THE PATIENT AND THE SUPPORTING STAFF AT THE MOMENT OF THE TIME OUT IN THE PROCEDURE ROOM. UNDER FLUOROSCOPIC GUIDANCE, THE TARGET POINT WAS SELECTED AT THE RIGHT AND LEFT T4-T5 AND RIGHT AND LEFT T5-T6 THORACIC FACET. TARGET POINT WAS SELECTED AFTER LATERAL ROTATION AND TILT OF THE MAGNIFIER OF THE C-ARM. LIDOCAINE 0.5% WAS USED TO NUMB THE SKIN AND THE SUBCUTANEOUS TISSUE BELOW IT. SPINAL NEEDLES, 22-GAUGE, WERE ADVANCED UNDER FLUOROSCOPIC GUIDANCE AND FOLLOWING PATIENT FEEDBACK UNTIL THE TARGETS WERE TOUCHED. THE POSITION OF THE NEEDLES WAS VERIFIED WITH MULTIPLE X-RAY VIEWS. AFTER PROPER POSITION OF THE NEEDLES WAS ACHIEVED, ISOVUE-M DYE 30% 0.1 ML WAS INJECTED SHOWING ADEQUATE SPREAD OF THE DYE. THEN A SOLUTION OF 0.9 ML OF BUPIVACAINE 0.125% OF KENALOG 10 MG WAS INJECTED AT EACH SITE. THERE WAS NO EVIDENCE OF BLOOD, PARESTHESIA OR CEREBROSPINAL FLUID DURING THE PROCEDURE. THE PATIENT WAS SENT TO THE RECOVERY ROOM. THE PATIENT WAS MOVING THE EXTREMITIES AND DOING WELL. THERE WAS NO COMPLICATION DURING THE PROCEDURE. FLUOROSCOPY TIME WAS 25 SECONDS POST PROCEDURE NOTE THE PATIENT WILL BE SEEN IN A FOLLOW UP IN THE NEXT FEW WEEKS. INSTRUCTIONS WERE GIVEN, QUESTIONS WERE ANSWERED, AND THE PATIENT EXPRESSED UNDERSTANDING AND AGREED WITH THE PLAN. I, DIONISIO NGUYEN, DOCUMENTED THE ABOVE INFORMATION ACTING A SCRIBE FOR DR. BHARDWAJ. I HAVE REVIEWED THE ABOVE DOCUMENT, WRITTEN BY DIONISIO DEE AND I VERIFY THAT IT IS ACCURATE. PN WORKMANS' COMP OPINION IN YOUR OPINION, WAS THE INCIDENT THAT THE PATIENT DESCRIBED THE COMPETENT MEDICAL CAUSE OF THIS INJURY/ILLNESS? YES ARE THE PATIENT'S COMPLAINTS CONSISTENT WITH HIS/HER HISTORY OF THE INJURY/ILLNESS? YES IS THE PATIENT'S HISTORY OF THE INJURY/ILLNESS CONSISTENT WITH YOUR OBJECTIVE FINDING? YES WHAT IS THE PERCENTAGE OF TEMPORARY IMPAIRMENT? MODERATE TO MARKED = 66.7% IS THE PATIENT WORKING? NO DOCTOR ON SITE: THELMA NUNEZ MD DIAGNOSTIC IMAGING [facility] FACET BLOCK (PAIN)[id number] PROCEDURE CODES 68125 INJ PARAVERT F JNT C/T 1 LEV, MODIFIERS: 50 [id number] INJ PARAVERT F JNT C/T 2 LEV, MODIFIERS: 50 [id number] RADXPS IN END [id number] PXD DISPOSITION & COMMUNICATION FOLLOW UP 2 WEEKS ELECTRONICALLY SIGNED BY THELMA BHARDWAJ MD ON 09/06/2017 AT 09:48 PM EST DISCLAIMER : THIS IS A VISIT SUMMARY EXTRACTED FROM THE [employer] CHART. IT IS NOT A COPY OF THE [employer] PROGRESS NOTE. MTDD
== END ==
LOC: M PAIN 10:15
PROVIDERS: ATTEND Anesthesiology
DX: G89.29 Other chronic pain (principal); M47.814 Spondylosis without myelopathy or radiculopathy, thoracic region; J44.9 Chronic obstructive pulmonary disease, unspecified; I50.40 Unspecified combined systolic (congestive) and diastolic (congestive) heart failure; I10 Essential (primary) hypertension; K21.9 Gastro-esophageal reflux disease without esophagitis; E11.9 Type 2 diabetes mellitus without complications; E03.9 Hypothyroidism, unspecified; E55.9 Vitamin D deficiency, unspecified; E78.5 Hyperlipidemia, unspecified; R42 Dizziness and giddiness; Z91.02 Food additives allergy status; Z91.018 Allergy to other foods; Z88.6 Allergy status to analgesic agent; Z88.8 Allergy status to other drugs, medicaments and biological substances; Z79.82 Long term (current) use of aspirin; Z79.84 Long term (current) use of oral hypoglycemic drugs; Z79.891 Long term (current) use of opiate analgesic; Z79.899 Other long term (current) drug therapy
CPT/HCPCS: 64490; 64491; J3301; Q9967

== ENCOUNTER → 2017-10-10 | Outpatient (CLI) | payer OTHER | LOC: M PAIN 08:45 | DX: M47.814 Spondylosis without myelopathy or radiculopathy, thoracic region (principal); M79.1 Myalgia; E11.9 Type 2 diabetes mellitus without complications; I50.40 Unspecified combined systolic (congestive) and diastolic (congestive) heart failure; E03.9 Hypothyroidism, unspecified; K21.9 Gastro-esophageal reflux disease without esophagitis; I11.0 Hypertensive heart disease with heart failure; E78.5 Hyperlipidemia, unspecified; Z79.82 Long term (current) use of aspirin; Z79.899 Other long term (current) drug therapy; Z79.891 Long term (current) use of opiate analgesic; Z79.84 Long term (current) use of oral hypoglycemic drugs; Z91.018 Allergy to other foods; Z88.8 Allergy status to other drugs, medicaments and biological substances; Z91.09 Other allergy status, other than to drugs and biological substances | CPT/HCPCS: G0463 ==

== ENCOUNTER → 2017-10-11 | Outpatient (CLI) | payer OTHER | LOC: M PAIN 15:30 | DX: M47.816 Spondylosis without myelopathy or radiculopathy, lumbar region (principal); M47.817 Spondylosis without myelopathy or radiculopathy, lumbosacral region; M96.1 Postlaminectomy syndrome, not elsewhere classified; M54.5 Low back pain; G89.29 Other chronic pain; Z88.8 Allergy status to other drugs, medicaments and biological substances; Z91.048 Other nonmedicinal substance allergy status; Z91.018 Allergy to other foods | CPT/HCPCS: G0463 ==

== ENCOUNTER 2017-10-16 11:36 | Emergency (ER) | payer OTHER ==
[2017-10-16 15:07] LABS: BASO # 0.1 10^3/uL (0.0-0.2); BASO % 0.9 % (0.0-1.0); EOS # 0.3 10^3/uL (0.0-0.50); EOS % 3.8 % (0.0-3.0); HEMATOCRIT 45.2 % (42.0-52.0); HEMOGLOBIN 14.8 g/dl (14.0-18.0); IMMATURE GRANULOCYTE # 0.1 10^3/uL (0-0); IMMATURE GRANULOCYTE % 0.8 % (0-0); LYMPH % 23.9 % (24.0-44.0); MEAN CORPUSCULAR HEMOGLOBIN 29.1 pg (27.0-33.0); MEAN CORPUSCULAR HGB CONC 32.7 g/dl (32.0-36.5); MONO # 0.7 10^3/uL (0.0-0.8); MONO % 8.2 % (0.0-5.0); NEUTROPHILS # 5.3 10^3/uL (1.8-7.7); NEUTROPHILS % 62.4 % (36.0-66.0); PLATELET COUNT, AUTOMATED 266 10^3/uL (150-450); RED BLOOD COUNT 5.08 10^6/uL (4.30-6.10); RED CELL DISTRIBUTION WIDTH 13.8 % (11.5-14.5); WHITE BLOOD COUNT 8.5 10^3/uL (4.0-10.0)
[2017-10-16 15:31] LABS: ALBUMIN 4.1 GM/DL (3.2-5.2); ALBUMIN/GLOBULIN RATIO 1.14 (1.00-1.93); ALKALINE PHOSPHATASE 84 U/L (45-117); ALT/SGPT 25 U/L (12-78); ANION GAP 5 MEQ/L (8-16); AST/SGOT 9 U/L (7-37); BILIRUBIN,TOTAL 0.4 MG/DL (0.2-1.0); BLOOD UREA NITROGEN 17 MG/DL (7-18); CALCIUM LEVEL 9.1 MG/DL (8.5-10.1); CARBON DIOXIDE LEVEL 31 MEQ/L (21-32); CHLORIDE LEVEL 104 MEQ/L (98-107); CREATININE FOR GFR 0.82 MG/DL (0.70-1.30); GLOMERULAR FILTRATION RATE > 60.0 (>56); GLUCOSE, FASTING 106 MG/DL (70-105); POTASSIUM SERUM 3.7 MEQ/L (3.5-5.1); SODIUM LEVEL 140 MEQ/L (136-145); TOTAL PROTEIN 7.7 GM/DL (6.4-8.2)
== END 2017-10-16 16:57 | disposition home or self-care (01) ==
LOC: M ED 11:36
DX: M79.89 Other specified soft tissue disorders (principal); Z87.891 Personal history of nicotine dependence; Z86.69 Personal history of other diseases of the nervous system and sense organs; I50.9 Heart failure, unspecified; I10 Essential (primary) hypertension; J44.9 Chronic obstructive pulmonary disease, unspecified; H93.19 Tinnitus, unspecified ear; H91.90 Unspecified hearing loss, unspecified ear; N40.0 Benign prostatic hyperplasia without lower urinary tract symptoms; E03.9 Hypothyroidism, unspecified; G89.29 Other chronic pain; M54.9 Dorsalgia, unspecified; Z79.82 Long term (current) use of aspirin; Z79.84 Long term (current) use of oral hypoglycemic drugs; Z79.899 Other long term (current) drug therapy; Z88.8 Allergy status to other drugs, medicaments and biological substances; Z91.89 Other specified personal risk factors, not elsewhere classified; Z91.018 Allergy to other foods; Z91.02 Food additives allergy status
CPT/HCPCS: 93970

== ENCOUNTER → 2017-10-18 | Outpatient (CLI) | payer OTHER ==
[2017-10-18 14:02] LABS: HEMATOCRIT 39.6 % (42.0-52.0); HEMOGLOBIN 13.1 g/dl (14.0-18.0); MEAN CORPUSCULAR HEMOGLOBIN 29.3 pg (27.0-33.0); MEAN CORPUSCULAR HGB CONC 33.1 g/dl (32.0-36.5); MEAN CORPUSCULAR VOLUME 88.6 fl (80.0-96.0); PLATELET COUNT, AUTOMATED 239 10^3/uL (150-450); RED BLOOD COUNT 4.47 10^6/uL (4.30-6.10); RED CELL DISTRIBUTION WIDTH 13.5 % (11.5-14.5); WHITE BLOOD COUNT 8.2 10^3/uL (4.0-10.0)
[2017-10-18 14:31] LABS: ALBUMIN 3.9 GM/DL (3.2-5.2); ANION GAP 6 MEQ/L (8-16); BLOOD UREA NITROGEN 24 MG/DL (7-18); CALCIUM LEVEL 8.8 MG/DL (8.5-10.1); CARBON DIOXIDE LEVEL 28 MEQ/L (21-32); CHLORIDE LEVEL 106 MEQ/L (98-107); CREATININE FOR GFR 0.91 MG/DL (0.70-1.30); GLOMERULAR FILTRATION RATE > 60.0 (>56); GLUCOSE, FASTING 96 MG/DL (70-100); MAGNESIUM LEVEL 1.7 MG/DL (1.8-2.4); PHOSPHORUS LEVEL 2.7 MG/DL (2.5-4.9); POTASSIUM SERUM 4.2 MEQ/L (3.5-5.1); SODIUM LEVEL 140 MEQ/L (136-145)
== END ==
LOC: M LAB 13:35
DX: I95.1 Orthostatic hypotension (principal); I42.0 Dilated cardiomyopathy; I50.42 Chronic combined systolic (congestive) and diastolic (congestive) heart failure
CPT/HCPCS: 83735

== ENCOUNTER → 2017-10-18 | Outpatient (CLI) | payer OTHER ==
[2017-10-18 14:27] LABS: MAGNESIUM LEVEL 1.8 MG/DL (1.8-2.4)
[2017-10-18 14:45] LABS: TOTAL 25(OH) VITAMIN D 51.7 NG/ML (30.0-100.0)
== END ==
LOC: M LAB 13:31
DX: R25.2 Cramp and spasm (principal); E55.9 Vitamin D deficiency, unspecified
CPT/HCPCS: 83735

== ENCOUNTER → 2017-10-20 | Outpatient (REF) | payer OTHER | LOC: M SFHCPLAZ 14:45 | DX: I80.02 Phlebitis and thrombophlebitis of superficial vessels of left lower extremity (principal); E55.9 Vitamin D deficiency, unspecified ==

== ENCOUNTER → 2017-10-25 | Outpatient (CLI) | payer OTHER ==
[~2017-10-25] MED LIST changes: -/ADVA50050 IN; -ACET65TA; -ALDA25TA2; -ALDA25TA2 OR; -AMIO400T; -ASPI81TA3; -ASPI81TA83 OR; -ATOR80TA59 PO; -AVOD0.5C OR; -BACT800T; +BUPIVACAINE HCL 0.25% 30 ML VIAL As Ordered; -BUPIVACAINE HCL 0.25% 30 ML VIAL As Ordered ONE; -CETI10TA OR; -COENCAP; -COLA100C2 OR; -CORD200T; -CORE12.5; -CORE12.5 OR; -DETROL PO; -DIAZ5TAB OR; -FLUC10TA; +ISOVUE-M 300 61% 15ML VIAL (Q9967) As Ordered; -ISOVUE-M 300 61% 15ML VIAL (Q9967) As Ordered ONE; -LANO0.1211; -LASI40TA; -LASI40TA OR; -LEVO25TA5 PO; +LIDOCAINE 1% SDV INJ 30 ML VIAL As Ordered; -LIDOCAINE 1% SDV INJ 30 ML VIAL As Ordered ONE; -LISI5TAB OR; -MAGN400C2 PO; -MAGN64TASA PO; -MECL25TA2 OR; -METF1000 PO; -METF500T PO; -MOME50SP; -MULTTAB4 PO; -NEUR300C OR; -NEUR600T OR; -NEXI40GR OR; -NITR0.4S SL; -OMEP40CA2 PO; -OXYB5TAB10 PO; -PERC5TAB8 OR; -PERC5TAB8 PO; -PRAV20TA2 PO; -PRAV40TA OR; -PRIN10TA; -SKEL800T5 OR; -SPIR25TA2 OR; -TAMS0.4C PO; -THERGRAN; -TRAM100T OR; +TRIAMCINOLONE ACETONIDE SUSP 40 MG/ML VIAL (J3301) As Ordered; -TRIAMCINOLONE ACETONIDE SUSP 40 MG/ML VIAL (J3301) As Ordered ONE; -VARE05TA; -VARE1TA; -VENTAER INH; -VITA250T; -VITAMIN D50000 UNT OR; -VOLT1GEL15 TD; -ZOCO10TA; -[UNRECOGNIZED DRUG - OTHER]; -[UNRECOGNIZED DRUG - OTHER] PO; -drisdol PO
== END ==
LOC: M PAIN 11:00
DX: G89.29 Other chronic pain (principal); M47.816 Spondylosis without myelopathy or radiculopathy, lumbar region; J44.9 Chronic obstructive pulmonary disease, unspecified; I50.42 Chronic combined systolic (congestive) and diastolic (congestive) heart failure; E78.5 Hyperlipidemia, unspecified; I11.0 Hypertensive heart disease with heart failure; K21.9 Gastro-esophageal reflux disease without esophagitis; R42 Dizziness and giddiness; E66.9 Obesity, unspecified; Z91.048 Other nonmedicinal substance allergy status; Z91.018 Allergy to other foods; Z88.6 Allergy status to analgesic agent; Z88.8 Allergy status to other drugs, medicaments and biological substances; Z79.82 Long term (current) use of aspirin; Z79.84 Long term (current) use of oral hypoglycemic drugs; Z79.891 Long term (current) use of opiate analgesic; Z79.899 Other long term (current) drug therapy
CPT/HCPCS: J3301

== ENCOUNTER 2017-10-26 17:54 | Emergency (ER) | payer OTHER ==
[2017-10-26 18:47] LABS: KETONE, URINE AUTO RFX NEGATIVE (NEGATIVE); LEUKOCYTE ESTERASE UR AUTO RFX NEGATIVE (NEGATIVE); MUCUS, URINE RFX SMALL (NEGATIVE); NITRITE, URINE AUTO RFX NEGATIVE (NEGATIVE); RBC, URINE AUTO RFX 3 /HPF (0-3); SPECIFIC GRAVITY UR AUTO RFX 1.028 (1.002-1.035); SQUAM EPITHELIAL CELL UR AURFX 0 /HPF (0-6); WBC, URINE AUTO RFX 1 /HPF (0-3)
[2017-10-26] MEDS ORDERED: IBUPROFEN 600 MG TAB PO (20:30)
[2017-10-26] MEDS: CIPROFLOXACIN 500 MG TAB PO (20:32)
== END 2017-10-26 20:35 | disposition home or self-care (01) ==
LOC: M ED 17:54
DX: N45.1 Epididymitis (principal); N43.3 Hydrocele, unspecified; I50.9 Heart failure, unspecified; N40.0 Benign prostatic hyperplasia without lower urinary tract symptoms; Z87.891 Personal history of nicotine dependence
CPT/HCPCS: 76870

== ENCOUNTER → 2017-11-07 | Outpatient (CLI) | payer OTHER ==
[2017-11-07 17:04] LABS: TOTAL 25(OH) VITAMIN D 51.9 NG/ML (30.0-100.0)
== END ==
LOC: M LAB 15:07
DX: I80.02 Phlebitis and thrombophlebitis of superficial vessels of left lower extremity (principal); E55.9 Vitamin D deficiency, unspecified
CPT/HCPCS: 82306

== ENCOUNTER → 2017-11-10 | Outpatient (REF) | payer OTHER | LOC: M SFHCPLAZ 12:14 | DX: N45.3 Epididymo-orchitis (principal) ==

== ENCOUNTER → 2017-11-11 | Outpatient (REF) | payer OTHER ==
[2017-11-11 18:04] LABS: APPEARANCE, URINE CLEAR (CLEAR); BACTERIA, URINE AUTO NEGATIVE (NEGATIVE); BILIRUBIN, URINE AUTO NEGATIVE (NEGATIVE); BLOOD, URINE BLOOD NEGATIVE (NEGATIVE); COLOR, URINE YELLOW (YELLOW); GLUCOSE, URINE (UA) AUTO NEGATIVE (NEGATIVE); KETONE, URINE AUTO NEGATIVE (NEGATIVE); LEUKOCYTE ESTERASE, URINE AUTO NEGATIVE (NEGATIVE); MUCUS, URINE SMALL (NEGATIVE); NITRITE, URINE AUTO NEGATIVE (NEGATIVE); PROTEIN, URINE AUTO NEGATIVE (NEGATIVE); RBC, URINE AUTO 5 /HPF (0-3); SPECIFIC GRAVITY URINE AUTO 1.018 (1.002-1.035); SQUAMOUS EPITHELIAL CELL UR AU 0 /HPF (0-6); UROBILINOGEN, URINE AUTO 0.2 mg/dL (0.0-2.0); WBC, URINE AUTO 1 /HPF (0-3)
== END ==
LOC: M SFHCPLAZ 07:17
DX: N45.3 Epididymo-orchitis (principal)

== ENCOUNTER → 2017-11-22 | Outpatient (CLI) | payer OTHER | END | disposition home or self-care (01) | LOC: M PAIN 10:30 | DX: G89.29 Other chronic pain (principal); M47.814 Spondylosis without myelopathy or radiculopathy, thoracic region; M79.1 Myalgia; J44.9 Chronic obstructive pulmonary disease, unspecified; I50.9 Heart failure, unspecified; E78.5 Hyperlipidemia, unspecified; I11.0 Hypertensive heart disease with heart failure; K21.9 Gastro-esophageal reflux disease without esophagitis; E66.9 Obesity, unspecified; F10.21 Alcohol dependence, in remission; B19.10 Unspecified viral hepatitis B without hepatic coma; Z95.0 Presence of cardiac pacemaker; Z79.899 Other long term (current) drug therapy; Z79.82 Long term (current) use of aspirin; Z79.51 Long term (current) use of inhaled steroids; Z79.84 Long term (current) use of oral hypoglycemic drugs; Z88.8 Allergy status to other drugs, medicaments and biological substances; Z91.018 Allergy to other foods; Z91.048 Other nonmedicinal substance allergy status; Z87.891 Personal history of nicotine dependence | CPT/HCPCS: G0463 ==

== ENCOUNTER → 2017-11-22 | Outpatient (CLI) | payer OTHER | END | disposition home or self-care (01) | LOC: M PAIN 09:45 | DX: G89.29 Other chronic pain (principal); M96.1 Postlaminectomy syndrome, not elsewhere classified; M79.1 Myalgia; M54.16 Radiculopathy, lumbar region; J44.9 Chronic obstructive pulmonary disease, unspecified; I50.9 Heart failure, unspecified; E78.5 Hyperlipidemia, unspecified; I11.0 Hypertensive heart disease with heart failure; K21.9 Gastro-esophageal reflux disease without esophagitis; E66.9 Obesity, unspecified; F10.21 Alcohol dependence, in remission; B19.10 Unspecified viral hepatitis B without hepatic coma; Z95.0 Presence of cardiac pacemaker; Z79.899 Other long term (current) drug therapy; Z79.84 Long term (current) use of oral hypoglycemic drugs; Z79.51 Long term (current) use of inhaled steroids; Z79.82 Long term (current) use of aspirin; Z91.018 Allergy to other foods; Z91.048 Other nonmedicinal substance allergy status; Z88.8 Allergy status to other drugs, medicaments and biological substances | CPT/HCPCS: G0463 ==

== ENCOUNTER → 2017-11-26 | Outpatient (REF) | payer OTHER ==
[2017-11-26 11:32] LABS: APPEARANCE, URINE CLEAR (CLEAR); BACTERIA, URINE AUTO NEGATIVE (NEGATIVE); BILIRUBIN, URINE AUTO NEGATIVE (NEGATIVE); BLOOD, URINE BLOOD NEGATIVE (NEGATIVE); CALCIUM OXALATE CRYSTALS SMALL; COLOR, URINE YELLOW (YELLOW); GLUCOSE, URINE (UA) AUTO NEGATIVE (NEGATIVE); KETONE, URINE AUTO NEGATIVE (NEGATIVE); LEUKOCYTE ESTERASE, URINE AUTO NEGATIVE (NEGATIVE); MUCUS, URINE SMALL (NEGATIVE); NITRITE, URINE AUTO NEGATIVE (NEGATIVE); PROTEIN, URINE AUTO NEGATIVE (NEGATIVE); RBC, URINE AUTO 0 /HPF (0-3); SQUAMOUS EPITHELIAL CELL UR AU 0 /HPF (0-6); UROBILINOGEN, URINE AUTO 0.2 mg/dL (0.0-2.0); WBC, URINE AUTO 1 /HPF (0-3)
== END ==
LOC: M SMT 11:39
DX: N50.811 Right testicular pain (principal)
CPT/HCPCS: 81001

== ENCOUNTER → 2017-12-05 | Outpatient (CLI) | payer OTHER | LOC: M RAD 09:45 | DX: I80.02 Phlebitis and thrombophlebitis of superficial vessels of left lower extremity (principal); I87.393 Chronic venous hypertension (idiopathic) with other complications of bilateral lower extremity | CPT/HCPCS: 93970 ==

== ENCOUNTER → 2017-12-12 | Outpatient (CLI) | payer OTHER | LOC: M RAD 09:11 | DX: D48.5 Neoplasm of uncertain behavior of skin (principal) | CPT/HCPCS: 72128 ==

== ENCOUNTER → 2017-12-13 | Outpatient (CLI) | payer OTHER | LOC: M SMT 12:22 | DX: Z12.5 Encounter for screening for malignant neoplasm of prostate (principal) | CPT/HCPCS: 84153 ==

== ENCOUNTER → 2017-12-30 | Outpatient (CLI) | payer OTHER | LOC: M RAD 13:52 | DX: R22.2 Localized swelling, mass and lump, trunk (principal) ==

== ENCOUNTER → 2018-01-05 | Outpatient (CLI) | payer OTHER | LOC: M PAIN 10:45 | DX: M79.1 Myalgia (principal); M47.814 Spondylosis without myelopathy or radiculopathy, thoracic region; J44.9 Chronic obstructive pulmonary disease, unspecified; E78.5 Hyperlipidemia, unspecified; I50.9 Heart failure, unspecified; E11.9 Type 2 diabetes mellitus without complications; E55.9 Vitamin D deficiency, unspecified; I11.0 Hypertensive heart disease with heart failure; K21.9 Gastro-esophageal reflux disease without esophagitis; E07.9 Disorder of thyroid, unspecified; Z79.82 Long term (current) use of aspirin; Z79.84 Long term (current) use of oral hypoglycemic drugs; Z79.891 Long term (current) use of opiate analgesic; Z79.899 Other long term (current) drug therapy; Z87.891 Personal history of nicotine dependence; Z95.810 Presence of automatic (implantable) cardiac defibrillator; Z88.8 Allergy status to other drugs, medicaments and biological substances; Z91.048 Other nonmedicinal substance allergy status; Z91.018 Allergy to other foods | CPT/HCPCS: G0463 ==

== ENCOUNTER → 2018-01-11 | Outpatient (CLI) | payer OTHER ==
[~2018-01-11] MED LIST changes: -BUPIVACAINE HCL 0.25% 30 ML VIAL As Ordered; -TRIAMCINOLONE ACETONIDE SUSP 40 MG/ML VIAL (J3301) As Ordered; +methylPREDNISolone SUSP 40 MG/ML (DEPO-medrol) VIAL (J1030) As Ordered
== END | disposition home or self-care (01) ==
LOC: M PAIN 10:15
DX: G89.29 Other chronic pain (principal); M96.1 Postlaminectomy syndrome, not elsewhere classified; I11.0 Hypertensive heart disease with heart failure; J44.9 Chronic obstructive pulmonary disease, unspecified; E78.5 Hyperlipidemia, unspecified; K21.9 Gastro-esophageal reflux disease without esophagitis; B19.20 Unspecified viral hepatitis C without hepatic coma; E66.9 Obesity, unspecified; Z95.0 Presence of cardiac pacemaker; Z79.899 Other long term (current) drug therapy; Z79.82 Long term (current) use of aspirin; Z79.890 Hormone replacement therapy; Z79.51 Long term (current) use of inhaled steroids; Z91.018 Allergy to other foods; Z91.048 Other nonmedicinal substance allergy status; Z88.8 Allergy status to other drugs, medicaments and biological substances
CPT/HCPCS: J1030

== ENCOUNTER → 2018-01-17 | Outpatient (CLI) | payer OTHER | LOC: M WUC 10:50 | DX: J20.9 Acute bronchitis, unspecified (principal) | CPT/HCPCS: 71046 ==

== ENCOUNTER 2018-01-19 09:51 | Emergency (ER) | payer OTHER ==
[2018-01-19 10:51] LABS: HEMATOCRIT 42.7 % (42.0-52.0); HEMOGLOBIN 14.1 g/dl (13.5-17.5); MEAN CORPUSCULAR VOLUME 87.7 fl (80.0-96.0); PLATELET COUNT, AUTOMATED 263 10^3/uL (150-450); RED BLOOD COUNT 4.87 10^6/uL (4.30-6.10); RED CELL DISTRIBUTION WIDTH 13.2 % (11.5-14.5); WHITE BLOOD COUNT 7.9 10^3/uL (4.0-10.0)
[2018-01-19 11:14] LABS: ANION GAP 6 MEQ/L (8-16); BLOOD UREA NITROGEN 16 MG/DL (7-18); CALCIUM LEVEL 9.1 MG/DL (8.5-10.1); CARBON DIOXIDE LEVEL 28 MEQ/L (21-32); CHLORIDE LEVEL 106 MEQ/L (98-107); CREATININE FOR GFR 0.89 MG/DL (0.70-1.30); GLOMERULAR FILTRATION RATE > 60.0 (>56); GLUCOSE, FASTING 125 MG/DL (70-100); SODIUM LEVEL 140 MEQ/L (136-145)
[2018-01-19] MEDS ORDERED: ISOVUE-370 76% 100ML VIAL (Q9967) As Ordered (11:14)
[2018-01-20 08:06] LABS: HCG SERUM TUMOR MARKER QUANT < 1 mIU/mL (0-3)
[2018-01-20 11:08] LABS: ALPHA FETOPROTEIN TUMOR QUANT < 1.3 NG/ML (<8.1)
== END 2018-01-19 14:16 | disposition home or self-care (01) ==
LOC: M ED 09:51
DX: R05 Cough (principal); R91.8 Other nonspecific abnormal finding of lung field; I11.0 Hypertensive heart disease with heart failure; J44.9 Chronic obstructive pulmonary disease, unspecified; K21.9 Gastro-esophageal reflux disease without esophagitis; E78.5 Hyperlipidemia, unspecified; F10.21 Alcohol dependence, in remission; E66.9 Obesity, unspecified; Z79.899 Other long term (current) drug therapy; Z79.82 Long term (current) use of aspirin; Z79.51 Long term (current) use of inhaled steroids; Z79.890 Hormone replacement therapy; Z88.6 Allergy status to analgesic agent; Z88.8 Allergy status to other drugs, medicaments and biological substances; Z91.018 Allergy to other foods; Z91.048 Other nonmedicinal substance allergy status
CPT/HCPCS: Q9967

== ENCOUNTER → 2018-01-24 | Outpatient (CLI) | payer OTHER | LOC: M RAD 14:12 | DX: N50.819 Testicular pain, unspecified (principal) | CPT/HCPCS: 76870 ==

== ENCOUNTER → 2018-01-25 | Outpatient (CLI) | payer OTHER | LOC: M PAIN 15:00 | DX: M96.1 Postlaminectomy syndrome, not elsewhere classified (principal); M79.1 Myalgia; M51.16 Intervertebral disc disorders with radiculopathy, lumbar region; E11.9 Type 2 diabetes mellitus without complications; J44.9 Chronic obstructive pulmonary disease, unspecified; E78.5 Hyperlipidemia, unspecified; I10 Essential (primary) hypertension; K21.9 Gastro-esophageal reflux disease without esophagitis; H81.49 Vertigo of central origin, unspecified ear; F10.11 Alcohol abuse, in remission; E66.01 Morbid (severe) obesity due to excess calories; Z68.34 Body mass index [BMI] 34.0-34.9, adult; Z79.82 Long term (current) use of aspirin; Z79.84 Long term (current) use of oral hypoglycemic drugs; Z79.891 Long term (current) use of opiate analgesic; Z79.899 Other long term (current) drug therapy; Z88.8 Allergy status to other drugs, medicaments and biological substances; Z88.6 Allergy status to analgesic agent; Z91.018 Allergy to other foods; Z91.02 Food additives allergy status; Z95.810 Presence of automatic (implantable) cardiac defibrillator; Z87.891 Personal history of nicotine dependence; Z86.79 Personal history of other diseases of the circulatory system | CPT/HCPCS: G0463 ==

== ENCOUNTER → 2018-02-06 | Outpatient (CLI) | payer OTHER | LOC: M SMT 08:52 | DX: R22.2 Localized swelling, mass and lump, trunk (principal); Z95.0 Presence of cardiac pacemaker | CPT/HCPCS: 71046 ==

== ENCOUNTER → 2018-02-16 | Outpatient (CLI) | payer OTHER | LOC: M PAIN 13:45 | DX: M79.1 Myalgia (principal); M54.14 Radiculopathy, thoracic region; J44.9 Chronic obstructive pulmonary disease, unspecified; I50.9 Heart failure, unspecified; H81.49 Vertigo of central origin, unspecified ear; E66.01 Morbid (severe) obesity due to excess calories; Z68.34 Body mass index [BMI] 34.0-34.9, adult; F10.21 Alcohol dependence, in remission; Z79.84 Long term (current) use of oral hypoglycemic drugs; Z79.82 Long term (current) use of aspirin; Z79.891 Long term (current) use of opiate analgesic; Z79.899 Other long term (current) drug therapy; Z88.6 Allergy status to analgesic agent; Z88.8 Allergy status to other drugs, medicaments and biological substances; Z91.018 Allergy to other foods; Z91.02 Food additives allergy status; Z95.0 Presence of cardiac pacemaker; Z86.19 Personal history of other infectious and parasitic diseases; Z87.891 Personal history of nicotine dependence | CPT/HCPCS: G0463 ==

== ENCOUNTER → 2018-02-21 | Outpatient (CLI) | payer OTHER ==
[2018-02-21 10:47] LABS: ABG BASE EXCESS -1.4 (-2.0-2.0); ABG HCO3 24.2 MEQ/L (22.0-26.0); ABG O2 SATURATION 97.7 % (95.0-99.0); ABG PARTIAL PRESSURE O2 101.4 mmHg (75.0-100.0); ABG SITE NOT GIVEN; ABG STANDARD HCO3 23.3 MEQ/L (22.0-26.0); ABG TOTAL CO2 25.5 MEQ/L (23.0-31.0); ABG pH (ARTERIAL) 7.358 UNITS (7.350-7.450)
[2018-02-21 10:54] LABS: HEMOGLOBIN 13.2 g/dl (13.5-17.5); MEAN CORPUSCULAR HEMOGLOBIN 29.2 pg (27.0-33.0); MEAN CORPUSCULAR VOLUME 88.5 fl (80.0-96.0); PLATELET COUNT, AUTOMATED 227 10^3/uL (150-450); RED BLOOD COUNT 4.52 10^6/uL (4.30-6.10); RED CELL DISTRIBUTION WIDTH 13.7 % (11.5-14.5)
[2018-02-21 11:04] LABS: INR 0.87; PROTHROMBIN TIME 11.9 SECONDS (12.4-14.5)
[2018-02-21 11:05] LABS: PARTIAL THROMBOPLASTIN TIME 25.3 SECONDS (26.8-37.9)
[2018-02-21 11:20] LABS: ANION GAP 6 MEQ/L (8-16); BLOOD UREA NITROGEN 16 MG/DL (7-18); CALCIUM LEVEL 8.4 MG/DL (8.8-10.2); CARBON DIOXIDE LEVEL 27 MEQ/L (21-32); CHLORIDE LEVEL 107 MEQ/L (98-107); CREATININE FOR GFR 0.85 MG/DL (0.70-1.30); GLOMERULAR FILTRATION RATE > 60.0 (>49); GLUCOSE, FASTING 130 MG/DL (70-100); POTASSIUM SERUM 4.1 MEQ/L (3.5-5.1); SODIUM LEVEL 140 MEQ/L (136-145)
== END ==
LOC: M LAB 10:00
DX: R22.2 Localized swelling, mass and lump, trunk (principal)
CPT/HCPCS: 71046

== ENCOUNTER 2018-02-27 11:14 | Day surgery (SDC) | payer OTHER ==
[2018-02-27 12:03] LABS: BEDSIDE GLUCOSE 140 MG/DL (80-115)
[2018-02-27] MEDS: LR 1,000 ML IV (12:08)
[2018-02-27] MEDS ORDERED: LIDOCAINE 2% INJ 100 MG/5 ML SDV (FOR ANES.) As Ordered (12:47)
[2018-02-27] MEDS ORDERED: MIDAZOLAM INJ 2 MG/2 ML VIAL (J2250) As Ordered (12:47)
[2018-02-27] MEDS ORDERED: PROPOFOL 200 MG/20 ML VIAL As Ordered ×2 (12:47→12:50)
[2018-02-27] MEDS ORDERED: ROCURONIUM BROMIDE 50 MG/5 ML VIAL As Ordered (12:47)
[2018-02-27] MEDS ORDERED: fentaNYL 100 MCG/2 ML INJECTION (J3010) As Ordered ×2 (12:48→15:05)
[2018-02-27] MEDS: BUPIVACAINE HCL 0.25% 10 ML VIAL As Ordered (13:03)
[2018-02-27] MEDS: MUPIROCIN 2% OINT 22 GM TUBE TOP (13:35)
[2018-02-27] MEDS ORDERED: ONDANSETRON 4MG/2ML VIAL (J2405) As Ordered (14:09)
[2018-02-27] MEDS: BUPIVACAINE LIPOSOME/PF 1.3% 20 ML VIAL (13.3MG/ML)(EXPAREL) As Ordered ×2 (14:20)
[2018-02-27] MEDS ORDERED: NEOSTIGMINE 10 MG/10 ML VIAL (J2710) As Ordered (14:24)
[2018-02-27] MEDS ORDERED: GLYCOPYRROLATE INJ 0.2 MG/ML 2 ML VIAL As Ordered ×3 (14:24→14:25)
[2018-02-27] MEDS ORDERED: KETOROLAC 30 MG/ML VIAL (J1885) As Ordered (14:44)
[2018-02-27] MEDS ORDERED: PERCOCET 5MG/325MG TAB As Ordered (14:51)
[2018-02-27] MEDS: PERCOCET 5MG/325MG TAB PO (14:53)
[2018-02-27] MEDS ORDERED: KETOROLAC 30 MG/ML VIAL (J1885) IV (15:00)
[2018-02-27] MEDS ORDERED: ONDANSETRON 4MG/2ML VIAL (J2405) IV (15:00)
[2018-02-27] MEDS ORDERED: LR 1,000 ML IV (15:00)
[2018-02-27] MEDS ORDERED: PERCOCET 5MG/325MG TAB PO (15:00)
[2018-02-27] MEDS: fentaNYL 100 MCG/2 ML INJECTION (J3010) IV ×4 (15:05→15:20)
[2018-02-27] MEDS: BACLOFEN 10 MG TAB PO (15:33)
== END 2018-02-27 16:41 | disposition home or self-care (01) ==
LOC: M SDC 16:41
DX: D17.1 Benign lipomatous neoplasm of skin and subcutaneous tissue of trunk (principal); J44.9 Chronic obstructive pulmonary disease, unspecified; I11.0 Hypertensive heart disease with heart failure; E03.9 Hypothyroidism, unspecified; I50.40 Unspecified combined systolic (congestive) and diastolic (congestive) heart failure; E78.4 Other hyperlipidemia; I87.393 Chronic venous hypertension (idiopathic) with other complications of bilateral lower extremity; E11.9 Type 2 diabetes mellitus without complications; M79.7 Fibromyalgia; N40.0 Benign prostatic hyperplasia without lower urinary tract symptoms; Z95.810 Presence of automatic (implantable) cardiac defibrillator; Z79.51 Long term (current) use of inhaled steroids; Z79.899 Other long term (current) drug therapy; Z91.041 Radiographic dye allergy status; H90.3 Sensorineural hearing loss, bilateral; H81.49 Vertigo of central origin, unspecified ear; F17.211 Nicotine dependence, cigarettes, in remission; E55.9 Vitamin D deficiency, unspecified
CPT/HCPCS: 11406

== ENCOUNTER → 2018-03-08 | Outpatient (CLI) | payer OTHER | LOC: M PAIN 13:00 | DX: M96.1 Postlaminectomy syndrome, not elsewhere classified (principal); M79.1 Myalgia; M51.16 Intervertebral disc disorders with radiculopathy, lumbar region; J44.9 Chronic obstructive pulmonary disease, unspecified; E78.5 Hyperlipidemia, unspecified; I11.0 Hypertensive heart disease with heart failure; E11.9 Type 2 diabetes mellitus without complications; K21.9 Gastro-esophageal reflux disease without esophagitis; N40.1 Benign prostatic hyperplasia with lower urinary tract symptoms; I50.9 Heart failure, unspecified; Z79.82 Long term (current) use of aspirin; Z79.84 Long term (current) use of oral hypoglycemic drugs; Z79.891 Long term (current) use of opiate analgesic; Z79.899 Other long term (current) drug therapy; Z91.048 Other nonmedicinal substance allergy status; Z91.018 Allergy to other foods; Z88.8 Allergy status to other drugs, medicaments and biological substances; Z95.810 Presence of automatic (implantable) cardiac defibrillator; Z87.891 Personal history of nicotine dependence | CPT/HCPCS: G0463 ==

== ENCOUNTER → 2018-04-03 | Outpatient (CLI) | payer OTHER | LOC: M PAIN 09:45 | DX: M79.1 Myalgia (principal); M54.14 Radiculopathy, thoracic region; G89.29 Other chronic pain; E11.9 Type 2 diabetes mellitus without complications; J44.9 Chronic obstructive pulmonary disease, unspecified; E78.5 Hyperlipidemia, unspecified; I10 Essential (primary) hypertension; K21.9 Gastro-esophageal reflux disease without esophagitis; F10.21 Alcohol dependence, in remission; Z79.82 Long term (current) use of aspirin; Z79.891 Long term (current) use of opiate analgesic; Z79.84 Long term (current) use of oral hypoglycemic drugs; Z88.6 Allergy status to analgesic agent; Z88.8 Allergy status to other drugs, medicaments and biological substances; Z91.018 Allergy to other foods; Z91.02 Food additives allergy status; Z86.69 Personal history of other diseases of the nervous system and sense organs; Z86.79 Personal history of other diseases of the circulatory system; Z95.0 Presence of cardiac pacemaker; Z87.891 Personal history of nicotine dependence | CPT/HCPCS: G0463 ==

== ENCOUNTER → 2018-04-11 | Outpatient (CLI) | payer OTHER | LOC: M PAIN 11:15 | DX: M96.1 Postlaminectomy syndrome, not elsewhere classified (principal); M79.1 Myalgia; M51.16 Intervertebral disc disorders with radiculopathy, lumbar region; M46.96 Unspecified inflammatory spondylopathy, lumbar region; J44.9 Chronic obstructive pulmonary disease, unspecified; I11.0 Hypertensive heart disease with heart failure; E78.5 Hyperlipidemia, unspecified; I50.9 Heart failure, unspecified; K21.9 Gastro-esophageal reflux disease without esophagitis; Z79.82 Long term (current) use of aspirin; Z79.84 Long term (current) use of oral hypoglycemic drugs; Z79.891 Long term (current) use of opiate analgesic; Z79.899 Other long term (current) drug therapy; Z86.19 Personal history of other infectious and parasitic diseases; Z87.891 Personal history of nicotine dependence; Z91.048 Other nonmedicinal substance allergy status; Z91.018 Allergy to other foods; Z88.8 Allergy status to other drugs, medicaments and biological substances | CPT/HCPCS: G0463 ==

== ENCOUNTER 2018-04-16 14:19 | Emergency (ER) | payer OTHER ==
[2018-04-16 15:16] LABS: BASO # 0.1 10^3/uL (0.0-0.2); EOS # 0.5 10^3/uL (0.0-0.50); EOS % 7.4 % (0.0-3.0); HEMATOCRIT 39.7 % (42.0-52.0); IMMATURE GRANULOCYTE % 0.5 % (0-3.0); LYMPH # 1.3 10^3/uL (1.5-4.5); LYMPH % 21.5 % (24.0-44.0); MEAN CORPUSCULAR HEMOGLOBIN 29.1 pg (27.0-33.0); MEAN CORPUSCULAR HGB CONC 32.7 g/dl (32.0-36.5); MONO # 0.5 10^3/uL (0.0-0.8); MONO % 7.9 % (0.0-5.0); NEUTROPHILS # 3.8 10^3/uL (1.8-7.7); NEUTROPHILS % 61.7 % (36.0-66.0); PLATELET COUNT, AUTOMATED 266 10^3/uL (150-450); RED BLOOD COUNT 4.46 10^6/uL (4.30-6.10); RED CELL DISTRIBUTION WIDTH 13.8 % (11.5-14.5); WHITE BLOOD COUNT 6.1 10^3/uL (4.0-10.0)
[2018-04-16 15:20] LABS: INR 0.89; PROTHROMBIN TIME 12.1 SECONDS (12.1-14.4)
[2018-04-16 15:21] LABS: PARTIAL THROMBOPLASTIN TIME 24.9 SECONDS (25.4-37.6)
[2018-04-16 15:29] LABS: ALBUMIN 3.4 GM/DL (3.2-5.2); ALBUMIN/GLOBULIN RATIO 1.17 (1.00-1.93); ALKALINE PHOSPHATASE 86 U/L (45-117); ALT/SGPT 26 U/L (12-78); ANION GAP 9 MEQ/L (8-16); AST/SGOT 11 U/L (7-37); BILIRUBIN,DIRECT < 0.1 MG/DL (0.0-0.2); BILIRUBIN,TOTAL 0.3 MG/DL (0.2-1.0); BLOOD UREA NITROGEN 17 MG/DL (7-18); CALCIUM LEVEL 8.5 MG/DL (8.8-10.2); CARBON DIOXIDE LEVEL 25 MEQ/L (21-32); CHLORIDE LEVEL 108 MEQ/L (98-107); CPK CREATINE PHOSPHOKINASE 56 U/L (39-308); CREATININE FOR GFR 1.03 MG/DL (0.70-1.30); FREE T4 1.03 NG/DL (0.76-1.46); GLOMERULAR FILTRATION RATE > 60.0 (>49); GLUCOSE, FASTING 149 MG/DL (70-100); LIPASE 89 U/L (73-393); POTASSIUM SERUM 4.1 MEQ/L (3.5-5.1); SODIUM LEVEL 142 MEQ/L (136-145); TOTAL PROTEIN 6.3 GM/DL (6.4-8.2); TROPONIN I < 0.02 NG/ML (< 0.10)
[2018-04-16] MEDS ORDERED: NITROGLYCERIN 0.4 MG SUBL TABLET SL (15:30)
[2018-04-16 15:35] LABS: CK-MB VALUE MASS < 1.0 NG/ML (<3.6); MB/CK RELATIVE INDEX 1.78 (< OR =4)
[2018-04-16] MEDS ORDERED: ISOVUE-370 76% 100ML VIAL (Q9967) As Ordered (15:38)
[2018-04-16] MEDS: ASPIRIN 81 MG CHEW TABLET PO (15:57)
[2018-04-16 21:09] LABS: CK-MB VALUE MASS < 1.0 NG/ML (<3.6); CPK CREATINE PHOSPHOKINASE 56 U/L (39-308); MB/CK RELATIVE INDEX 1.78 (< OR =4); TROPONIN I < 0.02 NG/ML (< 0.10)
== END 2018-04-16 21:40 | disposition home or self-care (01) ==
LOC: M ED 14:19
DX: J90 Pleural effusion, not elsewhere classified (principal); R91.1 Solitary pulmonary nodule; R07.89 Other chest pain; R06.02 Shortness of breath; I25.10 Atherosclerotic heart disease of native coronary artery without angina pectoris; I11.0 Hypertensive heart disease with heart failure; I50.9 Heart failure, unspecified; K21.9 Gastro-esophageal reflux disease without esophagitis; E78.5 Hyperlipidemia, unspecified; M54.5 Low back pain; M79.7 Fibromyalgia; J44.9 Chronic obstructive pulmonary disease, unspecified; B19.20 Unspecified viral hepatitis C without hepatic coma; R42 Dizziness and giddiness; Z87.891 Personal history of nicotine dependence; Z88.8 Allergy status to other drugs, medicaments and biological substances; Z88.4 Allergy status to anesthetic agent; Z91.018 Allergy to other foods; Z91.02 Food additives allergy status; Z79.899 Other long term (current) drug therapy; Z79.82 Long term (current) use of aspirin; Z79.51 Long term (current) use of inhaled steroids; Z79.84 Long term (current) use of oral hypoglycemic drugs
CPT/HCPCS: Q9967

== ENCOUNTER → 2018-05-01 | Outpatient (CLI) | payer OTHER | LOC: M PAIN 10:30 | DX: M79.1 Myalgia (principal); M54.14 Radiculopathy, thoracic region; J44.9 Chronic obstructive pulmonary disease, unspecified; I50.42 Chronic combined systolic (congestive) and diastolic (congestive) heart failure; E78.5 Hyperlipidemia, unspecified; E11.9 Type 2 diabetes mellitus without complications; I11.0 Hypertensive heart disease with heart failure; K21.9 Gastro-esophageal reflux disease without esophagitis; E66.9 Obesity, unspecified; Z68.35 Body mass index [BMI] 35.0-35.9, adult; Z95.810 Presence of automatic (implantable) cardiac defibrillator; Z87.891 Personal history of nicotine dependence; Z79.84 Long term (current) use of oral hypoglycemic drugs; Z88.6 Allergy status to analgesic agent; Z88.8 Allergy status to other drugs, medicaments and biological substances; Z91.018 Allergy to other foods; Z79.899 Other long term (current) drug therapy | CPT/HCPCS: G0463 ==

== ENCOUNTER → 2018-05-09 | Outpatient (CLI) | payer OTHER | LOC: M RAD 11:14 | DX: M25.512 Pain in left shoulder (principal) | CPT/HCPCS: 71046 ==

== ENCOUNTER → 2018-05-09 | Outpatient (CLI) | payer OTHER ==
[~2018-05-09] MED LIST changes: +BUPIVACAINE HCL 0.25% 30 ML VIAL As Ordered; +TRIAMCINOLONE ACETONIDE SUSP 40 MG/ML VIAL (J3301) As Ordered; -methylPREDNISolone SUSP 40 MG/ML (DEPO-medrol) VIAL (J1030) As Ordered
== END ==
LOC: M PAIN 08:45
DX: G89.29 Other chronic pain (principal); M47.816 Spondylosis without myelopathy or radiculopathy, lumbar region; E11.9 Type 2 diabetes mellitus without complications; J44.9 Chronic obstructive pulmonary disease, unspecified; E78.5 Hyperlipidemia, unspecified; I10 Essential (primary) hypertension; K21.9 Gastro-esophageal reflux disease without esophagitis; F10.21 Alcohol dependence, in remission; E66.01 Morbid (severe) obesity due to excess calories; Z79.82 Long term (current) use of aspirin; Z79.84 Long term (current) use of oral hypoglycemic drugs; Z79.891 Long term (current) use of opiate analgesic; Z79.899 Other long term (current) drug therapy; Z68.35 Body mass index [BMI] 35.0-35.9, adult; Z88.6 Allergy status to analgesic agent; Z88.8 Allergy status to other drugs, medicaments and biological substances; Z91.018 Allergy to other foods; Z91.09 Other allergy status, other than to drugs and biological substances; Z95.0 Presence of cardiac pacemaker; Z87.891 Personal history of nicotine dependence; Z85.89 Personal history of malignant neoplasm of other organs and systems; Z86.69 Personal history of other diseases of the nervous system and sense organs; Z86.19 Personal history of other infectious and parasitic diseases
CPT/HCPCS: J3301

== ENCOUNTER → 2018-05-19 | Outpatient (REF) | payer OTHER ==
[2018-05-19 13:43] LABS: TOTAL 25(OH) VITAMIN D 39.1 NG/ML (30.0-100.0)
[2018-05-19 14:21] LABS: ALBUMIN 3.6 GM/DL (3.2-5.2); ALBUMIN/GLOBULIN RATIO 1.09 (1.00-1.93); ALKALINE PHOSPHATASE 84 U/L (45-117); ALT/SGPT 22 U/L (12-78); ANION GAP 6 MEQ/L (8-16); AST/SGOT 7 U/L (7-37); BILIRUBIN,TOTAL 0.3 MG/DL (0.2-1.0); BLOOD UREA NITROGEN 22 MG/DL (7-18); CARBON DIOXIDE LEVEL 28 MEQ/L (21-32); CHLORIDE LEVEL 107 MEQ/L (98-107); CHOLESTEROL LEVEL 193 MG/DL (<200); CREATININE FOR GFR 0.87 MG/DL (0.70-1.30); FREE T4 1.16 NG/DL (0.76-1.46); GLOMERULAR FILTRATION RATE > 60.0 (>49); GLUCOSE, FASTING 124 MG/DL (70-100); HDL CHOLESTEROL 50 MG/DL (>40); LDL CHOLESTEROL 112.4 MG/DL (<100); NON-HDL-C 143 MG/DL; POTASSIUM SERUM 4.7 MEQ/L (3.5-5.1); SODIUM LEVEL 141 MEQ/L (136-145); TOTAL PROTEIN 6.9 GM/DL (6.4-8.2); TRIGLYCERIDES LEVEL 153 MG/DL (<150)
[2018-05-19 14:56] LABS: MALB URINE SIEMENS 5.8 MG/L; MAU/CREAT RATIO 4.8 MCG/MG (0.0-30.0)
[2018-05-19 15:05] LABS: ESTIMATED AVERAGE GLUCOSE 137 MG/DL (60-110); HEMOGLOBIN A1c 6.4 %
== END ==
LOC: M SFHCPLAZ 10:49
DX: E11.9 Type 2 diabetes mellitus without complications (principal); E03.9 Hypothyroidism, unspecified; E55.9 Vitamin D deficiency, unspecified; E78.5 Hyperlipidemia, unspecified

== ENCOUNTER → 2018-06-02 | Outpatient (CLI) | payer OTHER ==
[~2018-06-02] MED LIST changes: +BUPIVACAINE HCL 0.25% 10 ML VIAL As Ordered; -ISOVUE-M 300 61% 15ML VIAL (Q9967) As Ordered; -LIDOCAINE 1% SDV INJ 30 ML VIAL As Ordered
== END ==
LOC: M PAIN 08:30
DX: G89.29 Other chronic pain (principal); M79.1 Myalgia; M54.6 Pain in thoracic spine; E11.9 Type 2 diabetes mellitus without complications; J44.9 Chronic obstructive pulmonary disease, unspecified; E78.5 Hyperlipidemia, unspecified; I10 Essential (primary) hypertension; K21.9 Gastro-esophageal reflux disease without esophagitis; Z86.69 Personal history of other diseases of the nervous system and sense organs; F10.21 Alcohol dependence, in remission; Z79.82 Long term (current) use of aspirin; Z79.84 Long term (current) use of oral hypoglycemic drugs; Z79.891 Long term (current) use of opiate analgesic; Z79.899 Other long term (current) drug therapy; Z88.6 Allergy status to analgesic agent; Z88.8 Allergy status to other drugs, medicaments and biological substances; Z91.018 Allergy to other foods; Z86.19 Personal history of other infectious and parasitic diseases; Z95.0 Presence of cardiac pacemaker; Z87.891 Personal history of nicotine dependence
CPT/HCPCS: J3301

== ENCOUNTER → 2018-06-07 | Outpatient (CLI) | payer OTHER ==
[2018-06-07 11:55] LABS: HEMATOCRIT 40.9 % (42.0-52.0); HEMOGLOBIN 13.1 g/dl (13.5-17.5); MEAN CORPUSCULAR HEMOGLOBIN 28.7 pg (27.0-33.0); MEAN CORPUSCULAR VOLUME 89.5 fl (80.0-96.0); PLATELET COUNT, AUTOMATED 259 10^3/uL (150-450); RED BLOOD COUNT 4.57 10^6/uL (4.30-6.10); WHITE BLOOD COUNT 9.7 10^3/uL (4.0-10.0)
[2018-06-07 12:06] LABS: INR 0.92; PROTHROMBIN TIME 12.5 SECONDS (12.1-14.4)
[2018-06-07 12:27] LABS: ERYTHROCYTE SEDIMENTATION RATE 8 mm/hr (0-20)
[2018-06-07 12:52] LABS: ALBUMIN 3.5 GM/DL (3.2-5.2); ALBUMIN/GLOBULIN RATIO 1.17 (1.00-1.93); ALKALINE PHOSPHATASE 80 U/L (45-117); ALT/SGPT 27 U/L (12-78); ANION GAP 6 MEQ/L (8-16); AST/SGOT 8 U/L (7-37); BILIRUBIN,TOTAL 0.3 MG/DL (0.2-1.0); BLOOD UREA NITROGEN 19 MG/DL (7-18); CARBON DIOXIDE LEVEL 27 MEQ/L (21-32); CHLORIDE LEVEL 107 MEQ/L (98-107); CREATININE FOR GFR 0.85 MG/DL (0.70-1.30); GLOMERULAR FILTRATION RATE > 60.0 (>49); GLUCOSE, FASTING 125 MG/DL (70-100); POTASSIUM SERUM 4.4 MEQ/L (3.5-5.1); SODIUM LEVEL 140 MEQ/L (136-145); TOTAL PROTEIN 6.5 GM/DL (6.4-8.2)
== END ==
LOC: M LAB 11:21
DX: Z01.818 Encounter for other preprocedural examination (principal)
CPT/HCPCS: 71046

== ENCOUNTER 2018-06-15 21:51 | Inpatient (IN) | payer OTHER ==
[2018-06-15] MEDS: ASPIRIN 81 MG ENTERIC TAB PO (21:00)
[2018-06-15] MEDS: AMIODARONE HCL 150 MG in APPROPRIATE DILUENT 1 EA IV (22:26)
[2018-06-15 22:35] LABS: BASO # 0.1 10^3/uL (0.0-0.2); BASO % 0.5 % (0.0-1.0); EOS # 0.2 10^3/uL (0.0-0.50); EOS % 1.6 % (0.0-3.0); HEMATOCRIT 39.9 % (42.0-52.0); HEMOGLOBIN 12.8 g/dl (13.5-17.5); IMMATURE GRANULOCYTE % 0.6 % (0-3.0); LYMPH # 1.9 10^3/uL (1.5-4.5); LYMPH % 18.3 % (24.0-44.0); MEAN CORPUSCULAR HEMOGLOBIN 28.2 pg (27.0-33.0); MEAN CORPUSCULAR HGB CONC 32.1 g/dl (32.0-36.5); MEAN CORPUSCULAR VOLUME 87.9 fl (80.0-96.0); MONO # 0.8 10^3/uL (0.0-0.8); MONO % 7.8 % (0.0-5.0); NEUTROPHILS # 7.4 10^3/uL (1.8-7.7); NEUTROPHILS % 71.2 % (36.0-66.0); PLATELET COUNT, AUTOMATED 247 10^3/uL (150-450); RED BLOOD COUNT 4.54 10^6/uL (4.30-6.10); RED CELL DISTRIBUTION WIDTH 13.7 % (11.5-14.5); WHITE BLOOD COUNT 10.3 10^3/uL (4.0-10.0)
[2018-06-15 22:45] LABS: INR 0.91; PARTIAL THROMBOPLASTIN TIME 25.3 SECONDS (25.4-37.6); PROTHROMBIN TIME 12.3 SECONDS (12.1-14.4)
[2018-06-15 22:52] LABS: ANION GAP 5 MEQ/L (8-16); BLOOD UREA NITROGEN 21 MG/DL (7-18); CALCIUM LEVEL 8.8 MG/DL (8.8-10.2); CARBON DIOXIDE LEVEL 27 MEQ/L (21-32); CHLORIDE LEVEL 107 MEQ/L (98-107); CPK CREATINE PHOSPHOKINASE 95 U/L (39-308); CREATININE FOR GFR 0.84 MG/DL (0.70-1.30); FREE T4 1.08 NG/DL (0.76-1.46); GLOMERULAR FILTRATION RATE > 60.0 (>49); GLUCOSE, FASTING 112 MG/DL (70-100); MAGNESIUM LEVEL 1.9 MG/DL (1.8-2.4); MB/CK RELATIVE INDEX 1.37 (< OR =4); POTASSIUM SERUM 3.9 MEQ/L (3.5-5.1); SODIUM LEVEL 139 MEQ/L (136-145); TROPONIN I < 0.02 NG/ML (< 0.10)
[2018-06-15] MEDS: AMIODARONE 150MG/3ML INJ (J0282) IVP (22:56)
[2018-06-16] MEDS: AMIODARONE HCL 150 MG/100 ML PREMIXED BAG (NEXTERONE) IV (00:21)
[2018-06-16] MEDS: AMIODARONE 200 MG TAB (PACERONE) PO ×5 (01:14→21:01)
[2018-06-16] MEDS: POTASSIUM CHLORIDE 10 MEQ SR TABLET PO ×3 (01:14→21:02)
[2018-06-16] MEDS: MAG SULF 1GM/100ML (MAG RUN) 1 GM in APPROPRIATE DILUENT 1 EA IV ×2 (01:15→02:30)
[2018-06-16] MEDS ORDERED: ACETAMINOPHEN TAB 650MG DOSE (2X325MG) PO (02:45)
[2018-06-16] MEDS ORDERED: NITROGLYCERIN 0.4 MG SUBL TABLET SL (02:45)
[2018-06-16] MEDS ORDERED: ALBUTEROL SULFATE 2.5 MG/0.5 ML INH NEB SOLN NEB (03:00)
[2018-06-16] MEDS ORDERED: GLUCAGON FOR INJ 1 MG VIAL (J1610) SC ×2 (03:00→05:30)
[2018-06-16] MEDS ORDERED: DEXTROSE 50% 50 ML SYRINGE IV ×2 (03:00→05:30)
[2018-06-16] MEDS ORDERED: GLUCOSE 4 GM CHEW TABLET PO ×2 (03:00→05:30)
[2018-06-16] MEDS: SPIRONOLACTONE 12.5MG PER 1/2 TABLET PO ×2 (04:21→21:03)
[2018-06-16] MEDS: ATORVASTATIN 20 MG TAB PO ×2 (04:21→21:00)
[2018-06-16] MEDS: OMEPRAZOLE 20 MG CAP PO ×2 (04:22→20:59)
[2018-06-16] MEDS: LISINOPRIL *2.5 MG* TAB PO ×2 (04:22→20:59)
[2018-06-16] MEDS: ZONISAMIDE 50 MG CAP (ZONEGRAN) PO ×2 (04:22→21:00)
[2018-06-16 05:36] LABS: TROPONIN I < 0.02 NG/ML (< 0.10)
[2018-06-16] MEDS: HEPARIN SOD (PORCINE) 5000 UNITS/ML VIAL SC ×3 (05:50→21:02)
[2018-06-16] MEDS: LEVOTHYROXINE 25MCG TABLET (0.025MG) PO (05:50)
[2018-06-16] MEDS ORDERED: HumaLOG INSULIN (NovoLOG) PER UNIT SC (07:30)
[2018-06-16 07:49] LABS: BEDSIDE GLUCOSE 121 MG/DL (80-115)
[2018-06-16] MEDS: ADVAIR HFA 115/21MCG INHALER INH (08:03)
[2018-06-16] MEDS: GABAPENTIN 400 MG CAP PO ×4 (08:07→21:01)
[2018-06-16] MEDS: MULTIVITAMINS/MINERALS THERAP 1 TAB PO (08:07)
[2018-06-16] MEDS: HumaLOG INSULIN (NovoLOG) PER UNIT SC ×4 (08:07→21:00)
[2018-06-16] MEDS: oxyBUTYnin *DITROPAN XL* 5 MG TABCR PO (08:08)
[2018-06-16] MEDS: CARVedilol 12.5 MG TAB PO ×2 (08:09→21:00)
[2018-06-16] MEDS: DOCUSATE SODIUM 100 MG CAP PO ×2 (08:10→21:01)
[2018-06-16] MEDS: MAGNESIUM CHLORIDE 64 MG TABCR (SLO MAG) PO ×2 (09:00→21:03)
[2018-06-16] MEDS: PERCOCET 5MG/325MG TAB PO ×3 (09:01→23:11)
[2018-06-16 10:33] LABS: TROPONIN I < 0.02 NG/ML (< 0.10)
[2018-06-16 11:40] LABS: BEDSIDE GLUCOSE 126 MG/DL (80-115)
[2018-06-16] MEDS: TOLTERODINE (DETROL) 2 MG TAB PO ×2 (12:09→20:59)
[2018-06-16 17:39] LABS: BEDSIDE GLUCOSE 147 MG/DL (80-115)
[2018-06-16 20:59] LABS: BEDSIDE GLUCOSE 126 MG/DL (80-115)
[2018-06-16] MEDS: ASPIRIN 81 MG ENTERIC TAB PO (21:00)
[2018-06-16] MEDS: VITAMIN D 1,000 INTERNATIONAL UNITS TABLET PO (21:01)
[2018-06-17] MEDS: PERCOCET 5MG/325MG TAB PO ×4 (04:27→21:20)
[2018-06-17 04:28] LABS: HEMATOCRIT 42.6 % (42.0-52.0); MEAN CORPUSCULAR HEMOGLOBIN 28.7 pg (27.0-33.0); MEAN CORPUSCULAR HGB CONC 32.9 g/dl (32.0-36.5); MEAN CORPUSCULAR VOLUME 87.3 fl (80.0-96.0); PLATELET COUNT, AUTOMATED 245 10^3/uL (150-450); RED BLOOD COUNT 4.88 10^6/uL (4.30-6.10); RED CELL DISTRIBUTION WIDTH 14.1 % (11.5-14.5); WHITE BLOOD COUNT 9.3 10^3/uL (4.0-10.0)
[2018-06-17 04:47] LABS: ALBUMIN 3.5 GM/DL (3.2-5.2); ALBUMIN/GLOBULIN RATIO 1.06 (1.00-1.93); ALKALINE PHOSPHATASE 77 U/L (45-117); ALT/SGPT 28 U/L (12-78); ANION GAP 8 MEQ/L (8-16); AST/SGOT 10 U/L (7-37); BILIRUBIN,TOTAL 0.4 MG/DL (0.2-1.0); BLOOD UREA NITROGEN 18 MG/DL (7-18); CALCIUM LEVEL 8.6 MG/DL (8.8-10.2); CARBON DIOXIDE LEVEL 23 MEQ/L (21-32); CHLORIDE LEVEL 111 MEQ/L (98-107); CREATININE FOR GFR 0.78 MG/DL (0.70-1.30); GLOMERULAR FILTRATION RATE > 60.0 (>49); GLUCOSE, FASTING 122 MG/DL (70-100); MAGNESIUM LEVEL 2.3 MG/DL (1.8-2.4); PHOSPHORUS LEVEL 3.1 MG/DL (2.5-4.9); POTASSIUM SERUM 4.5 MEQ/L (3.5-5.1); SODIUM LEVEL 142 MEQ/L (136-145); TOTAL PROTEIN 6.8 GM/DL (6.4-8.2)
[2018-06-17] MEDS: LEVOTHYROXINE 25MCG TABLET (0.025MG) PO (06:00)
[2018-06-17] MEDS: HEPARIN SOD (PORCINE) 5000 UNITS/ML VIAL SC ×3 (06:01→21:18)
[2018-06-17] MEDS: ADVAIR HFA 115/21MCG INHALER INH (08:07)
[2018-06-17 08:32] LABS: BEDSIDE GLUCOSE 122 MG/DL (80-115)
[2018-06-17] MEDS: HumaLOG INSULIN (NovoLOG) PER UNIT SC ×4 (08:42→20:52)
[2018-06-17] MEDS: MAGNESIUM CHLORIDE 64 MG TABCR (SLO MAG) PO ×2 (08:42→21:18)
[2018-06-17] MEDS: TOLTERODINE (DETROL) 2 MG TAB PO ×2 (08:44→21:15)
[2018-06-17] MEDS: POTASSIUM CHLORIDE 10 MEQ SR TABLET PO ×2 (08:44→21:16)
[2018-06-17] MEDS: MULTIVITAMINS/MINERALS THERAP 1 TAB PO (08:45)
[2018-06-17] MEDS: DOCUSATE SODIUM 100 MG CAP PO ×2 (08:45→21:19)
[2018-06-17] MEDS: GABAPENTIN 400 MG CAP PO ×4 (08:45→21:17)
[2018-06-17] MEDS: AMIODARONE 200 MG TAB (PACERONE) PO ×4 (08:45→21:17)
[2018-06-17] MEDS: CARVedilol 12.5 MG TAB PO ×2 (08:45→21:17)
[2018-06-17] MEDS: oxyBUTYnin *DITROPAN XL* 5 MG TABCR PO (08:46)
[2018-06-17] MEDS: METAXALONE 800 MG TABLET PO ×2 (10:35→17:35)
[2018-06-17 13:18] LABS: BEDSIDE GLUCOSE 128 MG/DL (80-115)
[2018-06-17 17:18] LABS: BEDSIDE GLUCOSE 125 MG/DL (80-115)
[2018-06-17 20:44] LABS: BEDSIDE GLUCOSE 124 MG/DL (80-115)
[2018-06-17] MEDS: LISINOPRIL *2.5 MG* TAB PO (21:15)
[2018-06-17] MEDS: VITAMIN D 1,000 INTERNATIONAL UNITS TABLET PO (21:15)
[2018-06-17] MEDS: SPIRONOLACTONE 12.5MG PER 1/2 TABLET PO (21:15)
[2018-06-17] MEDS: OMEPRAZOLE 20 MG CAP PO (21:15)
[2018-06-17] MEDS: ATORVASTATIN 20 MG TAB PO (21:16)
[2018-06-17] MEDS: ZONISAMIDE 50 MG CAP (ZONEGRAN) PO (21:17)
[2018-06-17] MEDS: ASPIRIN 81 MG ENTERIC TAB PO (21:17)
[2018-06-18] MEDS: LEVOTHYROXINE 25MCG TABLET (0.025MG) PO (05:51)
[2018-06-18] MEDS: HEPARIN SOD (PORCINE) 5000 UNITS/ML VIAL SC ×3 (05:51→20:55)
[2018-06-18] MEDS: PERCOCET 5MG/325MG TAB PO ×2 (05:52→12:38)
[2018-06-18 06:15] LABS: HEMATOCRIT 42.3 % (42.0-52.0); HEMOGLOBIN 13.7 g/dl (13.5-17.5); MEAN CORPUSCULAR HEMOGLOBIN 28.4 pg (27.0-33.0); MEAN CORPUSCULAR HGB CONC 32.4 g/dl (32.0-36.5); MEAN CORPUSCULAR VOLUME 87.8 fl (80.0-96.0); PLATELET COUNT, AUTOMATED 244 10^3/uL (150-450); RED BLOOD COUNT 4.82 10^6/uL (4.30-6.10); RED CELL DISTRIBUTION WIDTH 13.9 % (11.5-14.5); WHITE BLOOD COUNT 8.3 10^3/uL (4.0-10.0)
[2018-06-18 06:35] LABS: ALBUMIN 3.6 GM/DL (3.2-5.2); ALBUMIN/GLOBULIN RATIO 1.16 (1.00-1.93); ALKALINE PHOSPHATASE 80 U/L (45-117); ALT/SGPT 28 U/L (12-78); ANION GAP 7 MEQ/L (8-16); AST/SGOT 8 U/L (7-37); BILIRUBIN,TOTAL 0.3 MG/DL (0.2-1.0); BLOOD UREA NITROGEN 21 MG/DL (7-18); CALCIUM LEVEL 8.8 MG/DL (8.8-10.2); CARBON DIOXIDE LEVEL 24 MEQ/L (21-32); CHLORIDE LEVEL 110 MEQ/L (98-107); CREATININE FOR GFR 0.86 MG/DL (0.70-1.30); GLOMERULAR FILTRATION RATE > 60.0 (>49); GLUCOSE, FASTING 117 MG/DL (70-100); MAGNESIUM LEVEL 2.3 MG/DL (1.8-2.4); POTASSIUM SERUM 4.3 MEQ/L (3.5-5.1); SODIUM LEVEL 141 MEQ/L (136-145); TOTAL PROTEIN 6.7 GM/DL (6.4-8.2)
[2018-06-18] MEDS: ADVAIR HFA 115/21MCG INHALER INH (07:29)
[2018-06-18] MEDS: MULTIVITAMINS/MINERALS THERAP 1 TAB PO (07:34)
[2018-06-18] MEDS: DOCUSATE SODIUM 100 MG CAP PO ×2 (07:34→20:30)
[2018-06-18] MEDS: TOLTERODINE (DETROL) 2 MG TAB PO ×2 (07:34→20:30)
[2018-06-18] MEDS: oxyBUTYnin *DITROPAN XL* 5 MG TABCR PO (07:34)
[2018-06-18] MEDS: GABAPENTIN 400 MG CAP PO ×4 (07:34→20:30)
[2018-06-18] MEDS: HumaLOG INSULIN (NovoLOG) PER UNIT SC ×4 (07:34→20:55)
[2018-06-18] MEDS: AMIODARONE 200 MG TAB (PACERONE) PO ×4 (07:34→20:30)
[2018-06-18] MEDS: MAGNESIUM CHLORIDE 64 MG TABCR (SLO MAG) PO ×2 (07:35→20:32)
[2018-06-18] MEDS: POTASSIUM CHLORIDE 10 MEQ SR TABLET PO ×2 (07:35→20:31)
[2018-06-18] MEDS: CARVedilol 12.5 MG TAB PO ×2 (07:36→20:30)
[2018-06-18] MEDS: METAXALONE 800 MG TABLET PO ×2 (09:15→17:25)
[2018-06-18 12:16] LABS: BEDSIDE GLUCOSE 126 MG/DL (80-115)
[2018-06-18 17:23] LABS: BEDSIDE GLUCOSE 112 MG/DL (80-115)
[2018-06-18 20:13] LABS: CK-MB VALUE MASS < 1.0 NG/ML (<3.6); CPK CREATINE PHOSPHOKINASE 39 U/L (39-308); MB/CK RELATIVE INDEX 2.56 (< OR =4); TROPONIN I < 0.02 NG/ML (< 0.10)
[2018-06-18] MEDS: ASPIRIN 81 MG ENTERIC TAB PO (20:29)
[2018-06-18] MEDS: SPIRONOLACTONE 12.5MG PER 1/2 TABLET PO (20:31)
[2018-06-18] MEDS: ZONISAMIDE 50 MG CAP (ZONEGRAN) PO (20:31)
[2018-06-18] MEDS: LISINOPRIL *2.5 MG* TAB PO (20:31)
[2018-06-18] MEDS: OMEPRAZOLE 20 MG CAP PO (20:31)
[2018-06-18] MEDS: VITAMIN D 1,000 INTERNATIONAL UNITS TABLET PO (20:31)
[2018-06-18] MEDS: ATORVASTATIN 20 MG TAB PO (20:31)
[2018-06-18] MEDS: AMIODARONE HCL 150 MG in APPROPRIATE DILUENT 1 EA IV (20:32)
[2018-06-18 20:52] LABS: BEDSIDE GLUCOSE 126 MG/DL (80-115)
[2018-06-18] MEDS: LIDOCAINE 2% INJ 100 MG/5 ML SYRINGE IV (21:27)
[2018-06-19] MEDS: PERCOCET 5MG/325MG TAB PO ×5 (03:33→21:49)
[2018-06-19 05:39] LABS: HEMATOCRIT 43.8 % (42.0-52.0); HEMOGLOBIN 14.1 g/dl (13.5-17.5); MEAN CORPUSCULAR HGB CONC 32.2 g/dl (32.0-36.5); MEAN CORPUSCULAR VOLUME 87.1 fl (80.0-96.0); PLATELET COUNT, AUTOMATED 263 10^3/uL (150-450); RED BLOOD COUNT 5.03 10^6/uL (4.30-6.10); RED CELL DISTRIBUTION WIDTH 13.8 % (11.5-14.5); WHITE BLOOD COUNT 8.1 10^3/uL (4.0-10.0)
[2018-06-19] MEDS: HEPARIN SOD (PORCINE) 5000 UNITS/ML VIAL SC ×2 (05:52→13:13)
[2018-06-19] MEDS: LEVOTHYROXINE 25MCG TABLET (0.025MG) PO (05:52)
[2018-06-19 06:03] LABS: ALBUMIN 3.6 GM/DL (3.2-5.2); ALBUMIN/GLOBULIN RATIO 1.16 (1.00-1.93); ALKALINE PHOSPHATASE 75 U/L (45-117); ALT/SGPT 26 U/L (12-78); ANION GAP 6 MEQ/L (8-16); AST/SGOT 8 U/L (7-37); BILIRUBIN,TOTAL 0.3 MG/DL (0.2-1.0); BLOOD UREA NITROGEN 20 MG/DL (7-18); CALCIUM LEVEL 8.7 MG/DL (8.8-10.2); CARBON DIOXIDE LEVEL 26 MEQ/L (21-32); CHLORIDE LEVEL 109 MEQ/L (98-107); GLOMERULAR FILTRATION RATE > 60.0 (>49); GLUCOSE, FASTING 121 MG/DL (70-100); MAGNESIUM LEVEL 2.2 MG/DL (1.8-2.4); POTASSIUM SERUM 4.6 MEQ/L (3.5-5.1); SODIUM LEVEL 141 MEQ/L (136-145); TOTAL PROTEIN 6.7 GM/DL (6.4-8.2)
[2018-06-19 07:23] LABS: BEDSIDE GLUCOSE 108 MG/DL (80-115)
[2018-06-19] MEDS: HumaLOG INSULIN (NovoLOG) PER UNIT SC ×4 (07:26→21:00)
[2018-06-19] MEDS: ADVAIR HFA 115/21MCG INHALER INH (07:26)
[2018-06-19] MEDS: TOLTERODINE (DETROL) 2 MG TAB PO ×2 (08:06→21:14)
[2018-06-19] MEDS: MAGNESIUM CHLORIDE 64 MG TABCR (SLO MAG) PO ×2 (08:06→21:12)
[2018-06-19] MEDS: oxyBUTYnin *DITROPAN XL* 5 MG TABCR PO (08:07)
[2018-06-19] MEDS: MULTIVITAMINS/MINERALS THERAP 1 TAB PO (08:07)
[2018-06-19] MEDS: DOCUSATE SODIUM 100 MG CAP PO ×2 (08:07→21:13)
[2018-06-19] MEDS: GABAPENTIN 400 MG CAP PO ×4 (08:07→21:13)
[2018-06-19] MEDS: POTASSIUM CHLORIDE 10 MEQ SR TABLET PO ×2 (08:08→21:13)
[2018-06-19] MEDS: AMIODARONE 200 MG TAB (PACERONE) PO ×4 (08:08→21:14)
[2018-06-19] MEDS: CARVedilol 12.5 MG TAB PO (08:09)
[2018-06-19] MEDS: METAXALONE 800 MG TABLET PO ×3 (08:20→21:49)
[2018-06-19 11:27] LABS: BEDSIDE GLUCOSE 111 MG/DL (80-115)
[2018-06-19 17:46] LABS: BEDSIDE GLUCOSE 125 MG/DL (80-115)
[2018-06-19] MEDS: ATENOLOL 50 MG TAB PO (17:50)
[2018-06-19 19:54] LABS: CK-MB VALUE MASS < 1.0 NG/ML (<3.6); CPK CREATINE PHOSPHOKINASE 35 U/L (39-308); MB/CK RELATIVE INDEX 2.86 (< OR =4); TROPONIN I < 0.02 NG/ML (< 0.10)
[2018-06-19 20:10] LABS: BEDSIDE GLUCOSE 157 MG/DL (80-115)
[2018-06-19] MEDS: ATORVASTATIN 20 MG TAB PO (21:12)
[2018-06-19] MEDS: SPIRONOLACTONE 12.5MG PER 1/2 TABLET PO (21:12)
[2018-06-19] MEDS: OMEPRAZOLE 20 MG CAP PO (21:13)
[2018-06-19] MEDS: ZONISAMIDE 50 MG CAP (ZONEGRAN) PO (21:13)
[2018-06-19] MEDS: VITAMIN D 1,000 INTERNATIONAL UNITS TABLET PO (21:14)
[2018-06-19] MEDS: ASPIRIN 81 MG ENTERIC TAB PO (21:14)
[2018-06-19] MEDS: LISINOPRIL *2.5 MG* TAB PO (21:14)
[2018-06-20] MEDS: ATENOLOL 50 MG TAB PO ×4 (00:33→18:28)
[2018-06-20] MEDS: METAXALONE 800 MG TABLET PO ×3 (04:20→18:28)
[2018-06-20] MEDS: PERCOCET 5MG/325MG TAB PO ×4 (04:20→18:27)
[2018-06-20] MEDS: LEVOTHYROXINE 25MCG TABLET (0.025MG) PO (05:43)
[2018-06-20 05:54] LABS: HEMATOCRIT 44.7 % (42.0-52.0); HEMOGLOBIN 14.3 g/dl (13.5-17.5); MEAN CORPUSCULAR HEMOGLOBIN 28.2 pg (27.0-33.0); MEAN CORPUSCULAR VOLUME 88.2 fl (80.0-96.0); PLATELET COUNT, AUTOMATED 271 10^3/uL (150-450); RED BLOOD COUNT 5.07 10^6/uL (4.30-6.10); RED CELL DISTRIBUTION WIDTH 13.9 % (11.5-14.5); WHITE BLOOD COUNT 10.3 10^3/uL (4.0-10.0)
[2018-06-20 06:23] LABS: ALBUMIN 3.5 GM/DL (3.2-5.2); ALBUMIN/GLOBULIN RATIO 1.09 (1.00-1.93); ALKALINE PHOSPHATASE 80 U/L (45-117); ALT/SGPT 28 U/L (12-78); ANION GAP 10 MEQ/L (8-16); AST/SGOT 12 U/L (7-37); BILIRUBIN,TOTAL 0.3 MG/DL (0.2-1.0); BLOOD UREA NITROGEN 24 MG/DL (7-18); CARBON DIOXIDE LEVEL 21 MEQ/L (21-32); CHLORIDE LEVEL 108 MEQ/L (98-107); CREATININE FOR GFR 0.86 MG/DL (0.70-1.30); GLOMERULAR FILTRATION RATE > 60.0 (>49); GLUCOSE, FASTING 120 MG/DL (70-100); MAGNESIUM LEVEL 2.2 MG/DL (1.8-2.4); POTASSIUM SERUM 4.4 MEQ/L (3.5-5.1); SODIUM LEVEL 139 MEQ/L (136-145); TOTAL PROTEIN 6.7 GM/DL (6.4-8.2)
[2018-06-20] MEDS: HumaLOG INSULIN (NovoLOG) PER UNIT SC ×4 (07:41→20:42)
[2018-06-20] MEDS: ADVAIR HFA 115/21MCG INHALER INH (07:42)
[2018-06-20] MEDS: oxyBUTYnin *DITROPAN XL* 5 MG TABCR PO (09:55)
[2018-06-20] MEDS: TOLTERODINE (DETROL) 2 MG TAB PO ×2 (09:55→20:40)
[2018-06-20] MEDS: MULTIVITAMINS/MINERALS THERAP 1 TAB PO (09:55)
[2018-06-20] MEDS: GABAPENTIN 400 MG CAP PO ×4 (09:55→20:42)
[2018-06-20] MEDS: MAGNESIUM CHLORIDE 64 MG TABCR (SLO MAG) PO ×2 (09:56→20:42)
[2018-06-20] MEDS: POTASSIUM CHLORIDE 10 MEQ SR TABLET PO ×2 (09:56→20:40)
[2018-06-20] MEDS: DOCUSATE SODIUM 100 MG CAP PO ×2 (09:56→20:41)
[2018-06-20] MEDS: AMIODARONE 200 MG TAB (PACERONE) PO ×4 (09:56→20:41)
[2018-06-20 12:34] LABS: BEDSIDE GLUCOSE 109 MG/DL (80-115)
[2018-06-20 18:22] LABS: BEDSIDE GLUCOSE 132 MG/DL (80-115)
[2018-06-20 19:56] LABS: BEDSIDE GLUCOSE 142 MG/DL (80-115)
[2018-06-20] MEDS: ZONISAMIDE 50 MG CAP (ZONEGRAN) PO (20:40)
[2018-06-20] MEDS: ATORVASTATIN 20 MG TAB PO (20:40)
[2018-06-20] MEDS: ASPIRIN 81 MG ENTERIC TAB PO (20:40)
[2018-06-20] MEDS: OMEPRAZOLE 20 MG CAP PO (20:41)
[2018-06-20] MEDS: LISINOPRIL *2.5 MG* TAB PO (20:41)
[2018-06-20] MEDS: VITAMIN D 1,000 INTERNATIONAL UNITS TABLET PO (20:41)
[2018-06-20] MEDS: SPIRONOLACTONE 12.5MG PER 1/2 TABLET PO (20:41)
[2018-06-21] MEDS: ATENOLOL 50 MG TAB PO ×3 (00:10→12:16)
[2018-06-21] MEDS: PERCOCET 5MG/325MG TAB PO ×3 (00:11→09:32)
[2018-06-21] MEDS: METAXALONE 800 MG TABLET PO ×2 (00:11→04:59)
[2018-06-21] MEDS: LEVOTHYROXINE 25MCG TABLET (0.025MG) PO (05:00)
[2018-06-21 05:55] LABS: HEMATOCRIT 42.5 % (42.0-52.0); HEMOGLOBIN 14.1 g/dl (13.5-17.5); MEAN CORPUSCULAR HEMOGLOBIN 28.7 pg (27.0-33.0); MEAN CORPUSCULAR HGB CONC 33.2 g/dl (32.0-36.5); MEAN CORPUSCULAR VOLUME 86.4 fl (80.0-96.0); PLATELET COUNT, AUTOMATED 251 10^3/uL (150-450); RED BLOOD COUNT 4.92 10^6/uL (4.30-6.10); WHITE BLOOD COUNT 9.4 10^3/uL (4.0-10.0)
[2018-06-21 06:33] LABS: ALBUMIN 3.5 GM/DL (3.2-5.2); ALBUMIN/GLOBULIN RATIO 1.13 (1.00-1.93); ALKALINE PHOSPHATASE 76 U/L (45-117); ALT/SGPT 28 U/L (12-78); ANION GAP 8 MEQ/L (8-16); AST/SGOT 13 U/L (7-37); BILIRUBIN,TOTAL 0.3 MG/DL (0.2-1.0); BLOOD UREA NITROGEN 23 MG/DL (7-18); CALCIUM LEVEL 8.7 MG/DL (8.8-10.2); CARBON DIOXIDE LEVEL 22 MEQ/L (21-32); CHLORIDE LEVEL 107 MEQ/L (98-107); CREATININE FOR GFR 0.82 MG/DL (0.70-1.30); GLOMERULAR FILTRATION RATE > 60.0 (>49); GLUCOSE, FASTING 123 MG/DL (70-100); MAGNESIUM LEVEL 2.2 MG/DL (1.8-2.4); POTASSIUM SERUM 4.2 MEQ/L (3.5-5.1); SODIUM LEVEL 137 MEQ/L (136-145); TOTAL PROTEIN 6.6 GM/DL (6.4-8.2)
[2018-06-21] MEDS: ADVAIR HFA 115/21MCG INHALER INH (07:44)
[2018-06-21] MEDS ORDERED: SLF 3 ML SYR IV ×2 (09:00→14:00)
[2018-06-21] MEDS: HumaLOG INSULIN (NovoLOG) PER UNIT SC ×2 (09:30→12:00)
[2018-06-21] MEDS: MAGNESIUM CHLORIDE 64 MG TABCR (SLO MAG) PO (09:30)
[2018-06-21] MEDS: DOCUSATE SODIUM 100 MG CAP PO (09:31)
[2018-06-21] MEDS: AMIODARONE 200 MG TAB (PACERONE) PO ×2 (09:31→12:16)
[2018-06-21] MEDS: TOLTERODINE (DETROL) 2 MG TAB PO (09:31)
[2018-06-21] MEDS: POTASSIUM CHLORIDE 10 MEQ SR TABLET PO (09:31)
[2018-06-21] MEDS: GABAPENTIN 400 MG CAP PO ×2 (09:32→12:16)
[2018-06-21] MEDS: oxyBUTYnin *DITROPAN XL* 5 MG TABCR PO (09:32)
[2018-06-21] MEDS: MULTIVITAMINS/MINERALS THERAP 1 TAB PO (09:32)
[2018-06-21 12:11] LABS: BEDSIDE GLUCOSE 120 MG/DL (80-115)
== END 2018-06-21 13:05 | disposition home or self-care (01) | DRG 201 ==
LOC: M ED 21:51 → M PCU 06-18 19:29 → M MSPAV 06-17 14:22 → M ED INP 06-16 02:41 → M ICU 06-16 04:40
DX: I47.2 Ventricular tachycardia (principal); I42.0 Dilated cardiomyopathy; I11.0 Hypertensive heart disease with heart failure; J44.9 Chronic obstructive pulmonary disease, unspecified; E55.9 Vitamin D deficiency, unspecified; I50.32 Chronic diastolic (congestive) heart failure; I77.810 Thoracic aortic ectasia; I35.1 Nonrheumatic aortic (valve) insufficiency; E66.9 Obesity, unspecified; E03.9 Hypothyroidism, unspecified; M54.5 Low back pain; E11.9 Type 2 diabetes mellitus without complications; N40.0 Benign prostatic hyperplasia without lower urinary tract symptoms; Z79.82 Long term (current) use of aspirin; Z79.899 Other long term (current) drug therapy; Z91.048 Other nonmedicinal substance allergy status; Z91.018 Allergy to other foods; Z88.8 Allergy status to other drugs, medicaments and biological substances; Z95.810 Presence of automatic (implantable) cardiac defibrillator; Z88.6 Allergy status to analgesic agent; Z87.891 Personal history of nicotine dependence; Z79.891 Long term (current) use of opiate analgesic; Z79.51 Long term (current) use of inhaled steroids; Z79.84 Long term (current) use of oral hypoglycemic drugs

== ENCOUNTER 2018-06-30 23:18 | Emergency (ER) | payer OTHER ==
[2018-07-01 00:33] LABS: BASO # 0.1 10^3/uL (0.0-0.2); BASO % 0.7 % (0.0-1.0); EOS # 0.2 10^3/uL (0.0-0.50); EOS % 2.7 % (0.0-3.0); HEMATOCRIT 38.6 % (42.0-52.0); HEMOGLOBIN 12.8 g/dl (13.5-17.5); IMMATURE GRANULOCYTE % 0.7 % (0-3.0); LYMPH # 1.4 10^3/uL (1.5-4.5); LYMPH % 17.3 % (24.0-44.0); MEAN CORPUSCULAR HGB CONC 33.2 g/dl (32.0-36.5); MEAN CORPUSCULAR VOLUME 87.5 fl (80.0-96.0); MONO # 0.7 10^3/uL (0.0-0.8); MONO % 8.9 % (0.0-5.0); NEUTROPHILS # 5.6 10^3/uL (1.8-7.7); NEUTROPHILS % 69.7 % (36.0-66.0); PLATELET COUNT, AUTOMATED 224 10^3/uL (150-450); RED BLOOD COUNT 4.41 10^6/uL (4.30-6.10); RED CELL DISTRIBUTION WIDTH 14.1 % (11.5-14.5); WHITE BLOOD COUNT 8.1 10^3/uL (4.0-10.0)
[2018-07-01 00:46] LABS: INR 0.92; PARTIAL THROMBOPLASTIN TIME 24.7 SECONDS (25.4-37.6); PROTHROMBIN TIME 12.4 SECONDS (12.1-14.4)
[2018-07-01 01:17] LABS: ANION GAP 11 MEQ/L (8-16); BLOOD UREA NITROGEN 18 MG/DL (7-18); CALCIUM LEVEL 8.6 MG/DL (8.8-10.2); CARBON DIOXIDE LEVEL 23 MEQ/L (21-32); CHLORIDE LEVEL 107 MEQ/L (98-107); CK-MB VALUE MASS < 1.0 NG/ML (<3.6); CPK CREATINE PHOSPHOKINASE 43 U/L (39-308); CREATININE FOR GFR 0.93 MG/DL (0.70-1.30); GLOMERULAR FILTRATION RATE > 60.0 (>49); GLUCOSE, FASTING 113 MG/DL (70-100); MB/CK RELATIVE INDEX 2.33 (< OR =4); POTASSIUM SERUM 4.1 MEQ/L (3.5-5.1); SODIUM LEVEL 141 MEQ/L (136-145); TROPONIN I < 0.02 NG/ML (< 0.10)
[2018-07-01] MEDS ORDERED: ISOVUE-370 76% 100ML VIAL (Q9967) As Ordered (01:33)
[2018-07-01 04:18] LABS: CK-MB VALUE MASS < 1.0 NG/ML (<3.6); CPK CREATINE PHOSPHOKINASE 41 U/L (39-308); MB/CK RELATIVE INDEX 2.44 (< OR =4); TROPONIN I < 0.02 NG/ML (< 0.10)
== END 2018-07-01 05:09 | disposition home or self-care (01) ==
LOC: M ED 23:18
DX: R07.89 Other chest pain (principal); E11.9 Type 2 diabetes mellitus without complications; I10 Essential (primary) hypertension; E78.5 Hyperlipidemia, unspecified; K21.9 Gastro-esophageal reflux disease without esophagitis
CPT/HCPCS: Q9967

== ENCOUNTER 2018-07-04 11:44 | Inpatient (IN) | payer OTHER ==
[~2018-07-04 11:44] MED LIST changes: -BUPIVACAINE HCL 0.25% 10 ML VIAL As Ordered; -BUPIVACAINE HCL 0.25% 30 ML VIAL As Ordered; +ONDANSETRON 4MG/2ML VIAL (J2405) As Ordered; +PROPOFOL 200 MG/20 ML VIAL As Ordered; -TRIAMCINOLONE ACETONIDE SUSP 40 MG/ML VIAL (J3301) As Ordered; +dexameTHASONE 4 MG/ML 1ML VIAL (J1100) As Ordered
[2018-07-04] MEDS ORDERED: fentaNYL 100 MCG/2 ML INJECTION (J3010) As Ordered (12:33)
[2018-07-04] MEDS ORDERED: MIDAZOLAM INJ 2 MG/2 ML VIAL (J2250) As Ordered ×2 (12:33→13:12)
[2018-07-04 12:39] LABS: GLUCOSE, FASTING 115 MG/DL (70-100)
[2018-07-04 12:39] LABS: BEDSIDE GLUCOSE 102 MG/DL (80-115)
[2018-07-04] MEDS: MIDAZOLAM INJ 2 MG/2 ML VIAL (J2250) IV ×2 (12:45→12:50)
[2018-07-04] MEDS: fentaNYL 100 MCG/2 ML INJECTION (J3010) IV ×2 (12:48→12:50)
[2018-07-04] MEDS ORDERED: BUPIVACAINE/DEXTROSE 0.75% 2 ML AMP As Ordered (13:25)
[2018-07-04] MEDS: ceFAZolin SOD 1 GM in D5W MINI-BAG PLUS 50 ML IV ×2 (13:40→23:26)
[2018-07-04] MEDS: ceFAZolin 1GM INJ (J0690 PER 500MG) As Ordered (14:03)
[2018-07-04] MEDS: TRANEXAMIC ACID 100 MG/ML 10ML VIAL As Ordered (14:03)
[2018-07-04] MEDS: EPINEPHrine INJ 1 MG/ML 1ML AMP As Ordered (14:04)
[2018-07-04] MEDS: BUPIVACAINE LIPOSOME/PF 1.3% 20 ML VIAL (13.3MG/ML)(EXPAREL) As Ordered (14:05)
[2018-07-04] MEDS ORDERED: PROPOFOL 200 MG/20 ML VIAL As Ordered ×2 (14:35→15:00)
[2018-07-04] MEDS: LR 1,000 ML IV ×2 (15:15→17:00)
[2018-07-04] MEDS ORDERED: NALOXONE INJ 0.4 MG/1 ML VIAL (J2310) IV (15:30)
[2018-07-04] MEDS ORDERED: ACETAMINOPHEN TAB 650MG DOSE (2X325MG) PO (15:30)
[2018-07-04] MEDS ORDERED: EPIDURAL/PCA KEYS XX (15:30)
[2018-07-04] MEDS ORDERED: PERCOCET 5MG/325MG TAB PO (15:30)
[2018-07-04] MEDS ORDERED: ONDANSETRON 4MG/2ML VIAL (J2405) IV ×3 (15:30)
[2018-07-04] MEDS ORDERED: FLEET ENEMA PR (15:30)
[2018-07-04] MEDS ORDERED: MEPERIDINE INJ 25 MG/ML VIAL (J2175) IV (15:30)
[2018-07-04] MEDS ORDERED: fentaNYL 100 MCG/2 ML INJECTION (J3010) IV (15:30)
[2018-07-04] MEDS ORDERED: METOCLOPRAMIDE INJ 10MG/2ML VIAL (J2765) IV (15:30)
[2018-07-04] MEDS ORDERED: NALBUPHINE HCL 10 MG/ML AMP (J2300) IV (15:30)
[2018-07-04] MEDS ORDERED: diphenhydrAMINE INJ 50MG/ML VIAL (J1200) IV (15:30)
[2018-07-04] MEDS: MORPHINE 1MG/ML IN 0.9% NACL 100ML IV BAG IV (15:35)
[2018-07-04] MEDS ORDERED: GLUCOSE 4 GM CHEW TABLET PO (20:15)
[2018-07-04] MEDS ORDERED: DEXTROSE 50% 50 ML SYRINGE IV (20:15)
[2018-07-04] MEDS ORDERED: GLUCAGON FOR INJ 1 MG VIAL (J1610) SC (20:15)
[2018-07-04] MEDS ORDERED: NITROGLYCERIN 0.4 MG SUBL TABLET SL (20:30)
[2018-07-04] MEDS ORDERED: ATENOLOL 50 MG TAB PO (21:00)
[2018-07-04] MEDS: HumaLOG INSULIN (NovoLOG) PER UNIT SC (21:00)
[2018-07-04] MEDS: ATORVASTATIN 20 MG TAB PO (22:51)
[2018-07-04] MEDS: DOCUSATE SOD LIQ 100MG/10ML UDC PO (22:51)
[2018-07-04 22:52] LABS: BEDSIDE GLUCOSE 184 MG/DL (80-115)
[2018-07-04] MEDS: GABAPENTIN 400 MG CAP PO (22:52)
[2018-07-04] MEDS: OMEPRAZOLE 20 MG CAP PO (22:52)
[2018-07-04] MEDS: TAMSULOSIN 0.4 MG CAP PO (22:52)
[2018-07-04] MEDS: AMIODARONE 200 MG TAB (PACERONE) PO (22:52)
[2018-07-04] MEDS: DUTASTERIDE 0.5 MG CAP (AVODART) PO (22:53)
[2018-07-04] MEDS: ZONISAMIDE 50 MG CAP (ZONEGRAN) PO (22:53)
[2018-07-04] MEDS: ATENOLOL 50 MG TAB PO (23:26)
[2018-07-05] MEDS: LR 1,000 ML IV (04:50)
[2018-07-05] MEDS ORDERED: ONDANSETRON 4 MG TAB (S0181) PO (06:00)
[2018-07-05] MEDS: PERCOCET 5MG/325MG TAB PO ×4 (06:15→22:33)
[2018-07-05] MEDS: LEVOTHYROXINE 25MCG TABLET (0.025MG) PO (06:15)
[2018-07-05 07:08] LABS: HEMATOCRIT 37.6 % (42.0-52.0); HEMOGLOBIN 11.9 g/dl (13.5-17.5); MEAN CORPUSCULAR HEMOGLOBIN 28.2 pg (27.0-33.0); MEAN CORPUSCULAR HGB CONC 31.6 g/dl (32.0-36.5); MEAN CORPUSCULAR VOLUME 89.1 fl (80.0-96.0); PLATELET COUNT, AUTOMATED 247 10^3/uL (150-450); RED BLOOD COUNT 4.22 10^6/uL (4.30-6.10); RED CELL DISTRIBUTION WIDTH 14.4 % (11.5-14.5); WHITE BLOOD COUNT 12.7 10^3/uL (4.0-10.0)
[2018-07-05 07:23] LABS: ALBUMIN 3.2 GM/DL (3.2-5.2); ANION GAP 7 MEQ/L (8-16); BLOOD UREA NITROGEN 17 MG/DL (7-18); CALCIUM LEVEL 8.3 MG/DL (8.8-10.2); CARBON DIOXIDE LEVEL 27 MEQ/L (21-32); CHLORIDE LEVEL 108 MEQ/L (98-107); CREATININE FOR GFR 1.04 MG/DL (0.70-1.30); GLOMERULAR FILTRATION RATE > 60.0 (>49); GLUCOSE, FASTING 183 MG/DL (70-100); PHOSPHORUS LEVEL 3.1 MG/DL (2.5-4.9); POTASSIUM SERUM 3.9 MEQ/L (3.5-5.1); SODIUM LEVEL 142 MEQ/L (136-145)
[2018-07-05] MEDS: HumaLOG INSULIN (NovoLOG) PER UNIT SC ×4 (07:46→21:05)
[2018-07-05] MEDS: ceFAZolin SOD 1 GM in D5W MINI-BAG PLUS 50 ML IV (07:46)
[2018-07-05] MEDS: ADVAIR HFA 115/21MCG INHALER INH (07:53)
[2018-07-05] MEDS: GABAPENTIN 400 MG CAP PO ×4 (08:07→20:30)
[2018-07-05] MEDS: SENOKOT S TAB PO ×2 (08:07→20:31)
[2018-07-05] MEDS: MOM 30ML SUSPENSION UDC PO (08:07)
[2018-07-05] MEDS: MORPHINE 15 MG SA TAB PO ×2 (08:07→20:32)
[2018-07-05] MEDS: MIRALAX *UNIT DOSE* 17GM PACKET PO (08:07)
[2018-07-05] MEDS: ATENOLOL 50 MG TAB PO ×2 (08:07→20:30)
[2018-07-05] MEDS: AMIODARONE 200 MG TAB (PACERONE) PO ×3 (08:07→20:30)
[2018-07-05] MEDS: DOCUSATE SOD LIQ 100MG/10ML UDC PO (08:07)
[2018-07-05] MEDS ORDERED: DOCUSATE SODIUM 100 MG CAP PO (09:45)
[2018-07-05 11:19] LABS: BEDSIDE GLUCOSE 181 MG/DL (80-115)
[2018-07-05] MEDS: POTASSIUM CHLORIDE 10 MEQ SR TABLET PO ×2 (11:21→20:31)
[2018-07-05] MEDS: LISINOPRIL *2.5 MG* TAB PO (11:21)
[2018-07-05] MEDS: VITAMIN D 50,000 UNITS CAPSULE (ERGOCALCIFEROL 1.25MG) PO (11:22)
[2018-07-05] MEDS: MAGNESIUM CHLORIDE 64 MG TABCR (SLO MAG) PO ×2 (13:41→20:32)
[2018-07-05 16:37] LABS: BEDSIDE GLUCOSE 127 MG/DL (80-115)
[2018-07-05] MEDS: RIVAROXABAN 10 MG TAB (XARELTO) PO (17:07)
[2018-07-05 19:51] LABS: BEDSIDE GLUCOSE 154 MG/DL (80-115)
[2018-07-05] MEDS: TAMSULOSIN 0.4 MG CAP PO (20:30)
[2018-07-05] MEDS: ATORVASTATIN 20 MG TAB PO (20:30)
[2018-07-05] MEDS: OMEPRAZOLE 20 MG CAP PO (20:30)
[2018-07-05] MEDS: DUTASTERIDE 0.5 MG CAP (AVODART) PO (20:31)
[2018-07-05] MEDS: ZONISAMIDE 50 MG CAP (ZONEGRAN) PO (20:31)
[2018-07-06] MEDS: LEVOTHYROXINE 25MCG TABLET (0.025MG) PO (05:08)
[2018-07-06] MEDS: PERCOCET 5MG/325MG TAB PO ×4 (05:08→20:55)
[2018-07-06 07:05] LABS: HEMOGLOBIN 11.2 g/dl (13.5-17.5); MEAN CORPUSCULAR HEMOGLOBIN 28.9 pg (27.0-33.0); MEAN CORPUSCULAR HGB CONC 32.9 g/dl (32.0-36.5); MEAN CORPUSCULAR VOLUME 87.9 fl (80.0-96.0); PLATELET COUNT, AUTOMATED 211 10^3/uL (150-450); RED BLOOD COUNT 3.87 10^6/uL (4.30-6.10); RED CELL DISTRIBUTION WIDTH 14.4 % (11.5-14.5); WHITE BLOOD COUNT 9.3 10^3/uL (4.0-10.0)
[2018-07-06 07:37] LABS: ALBUMIN 2.8 GM/DL (3.2-5.2); ALBUMIN/GLOBULIN RATIO 0.97 (1.00-1.93); ALKALINE PHOSPHATASE 62 U/L (45-117); ALT/SGPT 15 U/L (12-78); ANION GAP 7 MEQ/L (8-16); AST/SGOT 12 U/L (7-37); BILIRUBIN,TOTAL 0.5 MG/DL (0.2-1.0); BLOOD UREA NITROGEN 12 MG/DL (7-18); CALCIUM LEVEL 8.3 MG/DL (8.8-10.2); CARBON DIOXIDE LEVEL 27 MEQ/L (21-32); CHLORIDE LEVEL 106 MEQ/L (98-107); CREATININE FOR GFR 0.88 MG/DL (0.70-1.30); GLOMERULAR FILTRATION RATE > 60.0 (>49); GLUCOSE, FASTING 126 MG/DL (70-100); POTASSIUM SERUM 4.1 MEQ/L (3.5-5.1); SODIUM LEVEL 140 MEQ/L (136-145); TOTAL PROTEIN 5.7 GM/DL (6.4-8.2)
[2018-07-06] MEDS: MOM 30ML SUSPENSION UDC PO (08:55)
[2018-07-06] MEDS: MAGNESIUM CHLORIDE 64 MG TABCR (SLO MAG) PO ×2 (08:55→20:52)
[2018-07-06] MEDS: LISINOPRIL *2.5 MG* TAB PO (08:55)
[2018-07-06] MEDS: SPIRONOLACTONE 12.5MG PER 1/2 TABLET PO (08:56)
[2018-07-06] MEDS: POTASSIUM CHLORIDE 10 MEQ SR TABLET PO ×2 (08:56→20:53)
[2018-07-06] MEDS: GABAPENTIN 400 MG CAP PO ×4 (08:56→20:54)
[2018-07-06] MEDS: MORPHINE 15 MG SA TAB PO ×2 (08:56→20:55)
[2018-07-06] MEDS: ATENOLOL 50 MG TAB PO ×2 (08:57→20:54)
[2018-07-06] MEDS: SENOKOT S TAB PO ×2 (08:57→20:54)
[2018-07-06] MEDS: HumaLOG INSULIN (NovoLOG) PER UNIT SC ×4 (08:57→20:56)
[2018-07-06] MEDS: MIRALAX *UNIT DOSE* 17GM PACKET PO (08:58)
[2018-07-06] MEDS: ADVAIR HFA 115/21MCG INHALER INH (08:58)
[2018-07-06] MEDS: AMIODARONE 200 MG TAB (PACERONE) PO ×3 (08:58→20:53)
[2018-07-06 13:08] LABS: BEDSIDE GLUCOSE 167 MG/DL (80-115)
[2018-07-06 16:25] LABS: BEDSIDE GLUCOSE 148 MG/DL (80-115)
[2018-07-06] MEDS: RIVAROXABAN 10 MG TAB (XARELTO) PO (17:58)
[2018-07-06 20:05] LABS: BEDSIDE GLUCOSE 167 MG/DL (80-115)
[2018-07-06] MEDS: DUTASTERIDE 0.5 MG CAP (AVODART) PO (20:52)
[2018-07-06] MEDS: ZONISAMIDE 50 MG CAP (ZONEGRAN) PO (20:53)
[2018-07-06] MEDS: ATORVASTATIN 20 MG TAB PO (20:53)
[2018-07-06] MEDS: OMEPRAZOLE 20 MG CAP PO (20:53)
[2018-07-06] MEDS: TAMSULOSIN 0.4 MG CAP PO (20:54)
[2018-07-07] MEDS: PERCOCET 5MG/325MG TAB PO ×4 (05:31→18:04)
[2018-07-07] MEDS: LEVOTHYROXINE 25MCG TABLET (0.025MG) PO (05:31)
[2018-07-07] MEDS: HumaLOG INSULIN (NovoLOG) PER UNIT SC ×3 (07:30→16:53)
[2018-07-07 07:40] LABS: BEDSIDE GLUCOSE 139 MG/DL (80-115)
[2018-07-07] MEDS: MOM 30ML SUSPENSION UDC PO (08:52)
[2018-07-07] MEDS: MIRALAX *UNIT DOSE* 17GM PACKET PO (08:53)
[2018-07-07] MEDS: MAGNESIUM CHLORIDE 64 MG TABCR (SLO MAG) PO (08:53)
[2018-07-07] MEDS: MORPHINE 15 MG SA TAB PO (08:53)
[2018-07-07] MEDS: AMIODARONE 200 MG TAB (PACERONE) PO ×2 (08:53→16:52)
[2018-07-07] MEDS: POTASSIUM CHLORIDE 10 MEQ SR TABLET PO (08:54)
[2018-07-07] MEDS: LISINOPRIL *2.5 MG* TAB PO (08:54)
[2018-07-07] MEDS: ATENOLOL 50 MG TAB PO (08:54)
[2018-07-07] MEDS: SENOKOT S TAB PO (08:54)
[2018-07-07] MEDS: SPIRONOLACTONE 12.5MG PER 1/2 TABLET PO (08:55)
[2018-07-07] MEDS: GABAPENTIN 400 MG CAP PO ×3 (08:55→16:52)
[2018-07-07] MEDS: ADVAIR HFA 115/21MCG INHALER INH (09:05)
[2018-07-07 11:37] LABS: BEDSIDE GLUCOSE 138 MG/DL (80-115)
[2018-07-07 16:35] LABS: BEDSIDE GLUCOSE 181 MG/DL (80-115)
[2018-07-07] MEDS: RIVAROXABAN 10 MG TAB (XARELTO) PO (16:53)
== END 2018-07-07 18:15 | disposition home health service (06) | DRG 302 ==
LOC: M OR 11:44 → M MS5PR 16:25
PROVIDERS: Orthopaedic Surgery
PROC: 0SRC0J9 Replacement of Right Knee Joint with Synthetic Substitute, Cemented, Open Approach (ICD-10-PCS; principal; 2018-07-04 13:20)
DX: M17.31 Unilateral post-traumatic osteoarthritis, right knee (principal); I11.0 Hypertensive heart disease with heart failure; I50.42 Chronic combined systolic (congestive) and diastolic (congestive) heart failure; I42.0 Dilated cardiomyopathy; J44.9 Chronic obstructive pulmonary disease, unspecified; E78.5 Hyperlipidemia, unspecified; K21.9 Gastro-esophageal reflux disease without esophagitis; E66.9 Obesity, unspecified; I25.10 Atherosclerotic heart disease of native coronary artery without angina pectoris; M54.5 Low back pain; E11.9 Type 2 diabetes mellitus without complications; E03.9 Hypothyroidism, unspecified; Z98.1 Arthrodesis status; Z95.810 Presence of automatic (implantable) cardiac defibrillator; Z87.891 Personal history of nicotine dependence; Z88.6 Allergy status to analgesic agent; Z88.8 Allergy status to other drugs, medicaments and biological substances; Z79.82 Long term (current) use of aspirin; Z79.84 Long term (current) use of oral hypoglycemic drugs; Z79.891 Long term (current) use of opiate analgesic; Z68.34 Body mass index [BMI] 34.0-34.9, adult; Z79.899 Other long term (current) drug therapy

== ENCOUNTER → 2018-07-11 | Outpatient (CLI) | payer OTHER | LOC: M PAIN 13:15 | DX: M54.14 Radiculopathy, thoracic region (principal); M79.18 Myalgia, other site; I50.42 Chronic combined systolic (congestive) and diastolic (congestive) heart failure; I12.9 Hypertensive chronic kidney disease with stage 1 through stage 4 chronic kidney disease, or unspecified chronic kidney disease; E11.9 Type 2 diabetes mellitus without complications; E78.5 Hyperlipidemia, unspecified; K21.9 Gastro-esophageal reflux disease without esophagitis; F10.21 Alcohol dependence, in remission; Z79.01 Long term (current) use of anticoagulants; Z79.82 Long term (current) use of aspirin; Z79.84 Long term (current) use of oral hypoglycemic drugs; Z79.891 Long term (current) use of opiate analgesic; Z79.899 Other long term (current) drug therapy; Z88.6 Allergy status to analgesic agent; Z88.8 Allergy status to other drugs, medicaments and biological substances; Z91.02 Food additives allergy status; Z91.018 Allergy to other foods; Z95.0 Presence of cardiac pacemaker; Z96.651 Presence of right artificial knee joint; Z86.69 Personal history of other diseases of the nervous system and sense organs; Z86.19 Personal history of other infectious and parasitic diseases; Z87.891 Personal history of nicotine dependence | CPT/HCPCS: G0463 ==

== ENCOUNTER → 2018-07-17 | Outpatient (CLI) | payer OTHER | LOC: M RAD 12:28 | DX: N50.811 Right testicular pain (principal); N43.3 Hydrocele, unspecified; N50.89 Other specified disorders of the male genital organs | CPT/HCPCS: 76870 ==

== ENCOUNTER → 2018-07-27 | Outpatient (CLI) | payer OTHER | LOC: M PAIN 10:45 | DX: M46.1 Sacroiliitis, not elsewhere classified (principal); M96.1 Postlaminectomy syndrome, not elsewhere classified; M79.18 Myalgia, other site; M51.16 Intervertebral disc disorders with radiculopathy, lumbar region; J44.9 Chronic obstructive pulmonary disease, unspecified; I50.40 Unspecified combined systolic (congestive) and diastolic (congestive) heart failure; E78.5 Hyperlipidemia, unspecified; I11.0 Hypertensive heart disease with heart failure; K21.9 Gastro-esophageal reflux disease without esophagitis; M54.5 Low back pain; M25.561 Pain in right knee; R42 Dizziness and giddiness; H91.93 Unspecified hearing loss, bilateral; F10.11 Alcohol abuse, in remission; E66.9 Obesity, unspecified; Z95.0 Presence of cardiac pacemaker; Z96.651 Presence of right artificial knee joint; Z98.1 Arthrodesis status; Z87.891 Personal history of nicotine dependence; Z88.6 Allergy status to analgesic agent; Z88.8 Allergy status to other drugs, medicaments and biological substances; Z91.018 Allergy to other foods; Z91.048 Other nonmedicinal substance allergy status; Z79.82 Long term (current) use of aspirin; Z79.84 Long term (current) use of oral hypoglycemic drugs; Z79.891 Long term (current) use of opiate analgesic; Z79.899 Other long term (current) drug therapy | CPT/HCPCS: G0463 ==

== ENCOUNTER → 2018-08-22 | Outpatient (CLI) | payer OTHER ==
[~2018-08-22] MED LIST changes: +BUPIVACAINE HCL 0.25% 30 ML VIAL As Ordered; +ISOVUE-M 300 61% 15ML VIAL (Q9967) As Ordered; +LIDOCAINE 1% SDV INJ 30 ML VIAL As Ordered; -ONDANSETRON 4MG/2ML VIAL (J2405) As Ordered; -PROPOFOL 200 MG/20 ML VIAL As Ordered; +TRIAMCINOLONE ACETONIDE SUSP 40 MG/ML VIAL (J3301) As Ordered; -dexameTHASONE 4 MG/ML 1ML VIAL (J1100) As Ordered
== END ==
LOC: M PAIN 08:30
DX: G89.29 Other chronic pain (principal); M46.1 Sacroiliitis, not elsewhere classified; M53.88 Other specified dorsopathies, sacral and sacrococcygeal region; E11.9 Type 2 diabetes mellitus without complications; I50.42 Chronic combined systolic (congestive) and diastolic (congestive) heart failure; I11.0 Hypertensive heart disease with heart failure; E78.5 Hyperlipidemia, unspecified; K21.9 Gastro-esophageal reflux disease without esophagitis; J44.9 Chronic obstructive pulmonary disease, unspecified; F10.21 Alcohol dependence, in remission; Z79.82 Long term (current) use of aspirin; Z79.84 Long term (current) use of oral hypoglycemic drugs; Z79.891 Long term (current) use of opiate analgesic; Z79.899 Other long term (current) drug therapy; Z86.69 Personal history of other diseases of the nervous system and sense organs; Z88.6 Allergy status to analgesic agent; Z88.8 Allergy status to other drugs, medicaments and biological substances; Z91.02 Food additives allergy status; Z91.018 Allergy to other foods; Z86.79 Personal history of other diseases of the circulatory system; Z87.891 Personal history of nicotine dependence; Z95.0 Presence of cardiac pacemaker; Z96.651 Presence of right artificial knee joint
CPT/HCPCS: J3301

== ENCOUNTER → 2018-09-06 | Outpatient (CLI) | payer OTHER ==
[~2018-09-06] MED LIST changes: +/ADVA50050 IN; +ACET65TA; +ADV250INH INH; +ALDA25TA2; +ALDA25TA2 OR; +AMIO200T PO; +AMIO400T; +ASPI1TAB PO; +ASPI81TA3; +ASPI81TA83 OR; +ATEN25TA PO; +ATEN50TA2 PO; +ATOR80TA59 PO; +AVOD0.5C OR; +AVOD0.5C PO; +BACT800T; -BUPIVACAINE HCL 0.25% 30 ML VIAL As Ordered; +CARV12.5 PO; +CETI10TA OR; +CIPR-249 PO; +COENCAP; +COLA100C2 OR; +COLA100C5 PO; +CORD200T; +CORE12.5; +CORE12.5 OR; +D3 A1000 PO; +DETR1TAB5 PO; +DETROL PO; +DIAZ5TAB OR; +DIAZ5TAB PO; +DOXY100C37 PO; +DRIS50003 PO; +DULO1CAP PO; +FLOM0.4C39 PO; +FLUC10TA; +GABA-845 PO; -ISOVUE-M 300 61% 15ML VIAL (Q9967) As Ordered; +KEFL500C17 PO; +KLOR10TA76 PO; +LANO0.1211; +LASI40TA; +LASI40TA OR; +LASI40TA PO; +LEVO25TA5 PO; -LIDOCAINE 1% SDV INJ 30 ML VIAL As Ordered; +LISI-542 PO; +LISI2.5T5 PO; +LISI5TAB OR; +MAGN400C2 PO; +MAGN64TASA PO; +MECL-86 PO; +MECL25TA2 OR; +METF1000 PO; +METF10004 PO; +METF500T PO; +METF500T13 PO; +MOME50SP; +MULT1TAB10 PO; +MULTTAB4 PO; +NASA1SPR; +NASA1SPR NARES; +NEUR300C OR; +NEUR600T OR; +NEXI40GR OR; +NITR0.4S SL; +NITR0.4S14 SL; +OMEP40CA2 PO; +OXYB5TAB PO; +OXYB5TAB10 PO; +PERC5TAB12 PO; +PERC5TAB8 OR; +PERC5TAB8 PO; +PRAV20TA2 PO; +PRAV40TA OR; +PRIN10TA; +SKEL800T5 OR; +SKEL800T97 PO; +SPIR-10 PO; +SPIR25TA2 OR; +TAMS0.4C PO; +THERGRAN; +TRAM100T OR; +TRAM100T PO; -TRIAMCINOLONE ACETONIDE SUSP 40 MG/ML VIAL (J3301) As Ordered; +TYLE325T5 PO; +VARE05TA; +VARE1TA; +VENTAER INH; +VITA200038 PO; +VITA250T; +VITAMIN D50000 UNT OR; +VOLT1GEL15 TD; +XARE10TA PO; +ZOCO10TA; +ZONI50CA3 PO; +ZYRT10CA5 PO; +[UNRECOGNIZED DRUG - OTHER]; +[UNRECOGNIZED DRUG - OTHER] PO; +drisdol PO
--- NOTE | 2018-09-27 00:03 | ECWPNPC ---
PATIENT NAME: CAMILO ARMSTRONG : 1960 GENDER: MALE VISIT DATE: 09/06/2018 DISCHARGE DATE: 09/06/18 1434 VISIT LOCKED DATE TIME: PHYSICIAN: THELMA BHARDWAJ MD RESOURCE: THELMA BHARDWAJ MD REASON FOR APPOINTMENT 1. W/C NYSIF-POST PROCEDURE HISTORY OF PRESENT ILLNESS DEPRESSION SCREENING: PHQ-2 IN LAST TWO WEEKS HAVE YOU BEEN BOTHERED BY LITTLE INTEREST OR PLEASURE IN DOING THINGSNO FEELING DOWN, DEPRESSED, OR HOPELESSNO HISTORY OF PRESENT ILLNESS: PAIN THE PATIENT DESCRIBES THE PAIN... 58 YEAR OLD MALE PATIENT WITH A HISTORY OF BACK PAIN. PATIENT DESCRIBES THE PAIN ACHING, SHARP, STABBING, SHOOTING, AND HAVING IT ALL THE TIME WITH A PAIN SCORE OF 8-10/10. 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 THE PATIENT STATES THAT THE PAIN RADIATES DOWN BOTH OF HIS LEGS. THE PATIENT IS CURRENTLY TAKING GABAPENTIN AND STATES THAT IT IS HELPING. THE PATIENT STATES THAT HE TRIED CYMBALTA BUT IT MADE HIM VERY SLEEPY AND DROWSY SO HE STOPPED TAKING IT. PATIENT DENIES UNEXPLAINABLE WEIGHT LOSS, FEVER, CHILLS, NEW CHANGES ON HIS URINARY OR BOWEL CONTROL. FALL RISK SCREENING: SCREENING :NO FALLS IN THE PAST YEAR CURRENT MEDICATIONS TAKING LISINOPRIL 2.5MG TABLET 1 TAB ORALLY AT BEDTIME TAKING ASPIRIN 81 MG TABLET DELAYED RELEASE 1 TAB ORALLY DAILY TAKING LIPITOR 80 MG TABLET 1 TABLET ORALLY ONCE A DAY AT BEDTIME TAKING OMEPRAZOLE 40 MG CAPSULE DELAYED RELEASE 1 CAPSULE ORALLY DAILY TAKING NASACORT AQ 55 MCG/ACT AEROSOL 1 PUFF IN EACH NOSTRIL NASALLY ONCE A DAY TAKING METFORMIN HCL 500 MG TABLET 1 TABLET WITH MEALS IN AM, 2 TABS IN THE PM ORALLY 500MG AM, 1000MG AT PM TAKING AVODART 0.5 MG CAPSULE 1 CAPSULE ORALLY ONCE A DAY TAKING ZYRTEC 10 MG TABLET 1 TABLET ORALLY ONCE A DAY, NOTES: 08/21/182029 TAKING ADVAIR DISKUS 250-50 MCG/DOSE MISCELLANEOUS 1 INHALATION. ALWAYS RINSE YOUR MOUTH OUT AFTER USE DAILY, NOTES: 0630 TAKING VENTOLIN HFA 108 (90 BASE) MCG/ACT AEROSOL SOLUTION 2 PUFFS INHALATION EVERY 4-6 HOURS NEEDED, NOTES: MONTHS AGO TAKING NITROSTAT 0.4 MG TABLET SUBLINGUAL 1 TAB SUBLINGUAL TAB1 TAB FOR CHEST PAIN IF NO RELIEF IN 5 MINUTES TAKE 2ND NITRO IF NO RELIEF AFTER 5 MINUTES TAKE 3RD NITRO ER, NOTES: LAST TUESDAY TAKING MIRALAX 17 GM POWDER 17GM ORALLY DAILY NEEDED, NOTES: YEAR AGO TAKING MAGNESIUM 64 MG CAPSULE 1 TAB ORALLY THREE TIMES A DAY TAKING ZONISAMIDE 50 MG CAPSULE 1 CAP ORALLY ONCE DAILY TAKING MULTIVITAMINS 1 TABLET DIRECTED ORALLY DAILY TAKING OXYBUTYNIN CHLORIDE ER 5 MG TABLET EXTENDED RELEASE 24 HOUR TAKE ONE TABLET BY MOUTH EVERY DAY DIRECTED TAKING DRISDOL 33770 UNIT CAPSULE 1 CAPSULE ORALLY ONCE EVERYOTHER WEEK, NOTES: WEEK AGO TAKING GABAPENTIN 400 MG CAPSULE 1 CAPSULE ORALLY FOUR TIMES DAILY MDD4 TAKING COLACE 100 MG CAPSULE 1 CAPSULE NEEDED ORALLY TWICE DAILY TAKING FLOMAX 0.4 MG CAPSULE EXTENDED RELEASE 24 HOUR 1 CAPSULE 30 MINUTES AFTER THE SAME MEAL EACH DAY ONCE A DAY TAKING ALDACTONE 25 MG TABLET 1/2 TAB ORALLY DAILY TAKING LASIX 40 MG TABLET 1 TAB ORALLY DAILY NEEDED, NOTES: MONTHS AGO TAKING ATENOLOL 50 MG TABLET 1 TABLET ORALLY ONCE A DAY TAKING LEVOTHYROXINE SODIUM 25 MCG TABLET TAKE ONE TABLET BY MOUTH EVERY MORNING ON AN EMPTY STOMACH TAKING AMIODARONE HCL 200 MG TABLET 1 TABLET ORALLY TID TAKING POTASSIUM CHLORIDE ER 20 MEQ TABLET EXTENDED RELEASE 1 TABLET WITH FOOD ORALLY BID TAKING DETROL 2 MG TABLET 1 TABLET ORALLY TWICE A DAY, NOTES: 629 TAKING MECLIZINE HCL 25 MG TABLET 1 TABLET ORALLY 1-2 TIMES DAILY NEEDED TAKING TRAMADOL HCL ER 100 MG TABLET EXTENDED RELEASE 24 HOUR 1 TABLET ORALLY ONCE A DAY MDD=1, NOTES: 629 TAKING VITAMIN D3 2000 UNITS TABLET 1 TAB ORALLY ONCE A DAY TAKING PERCOCET 5-325 MG TABLET 1 TABLET ORALLY Q 4 HRS PRN PAIN MDD=5 FOR 2 WEEKS SUPPLY, NOTES: 629 TAKING SKELAXIN 800 MG TABLET 1 TABLET ORALLY FOUR TIMES DAY WORKMEN COMP, NOTES: 629 UNKNOWN DRISDOL 88514 UNIT CAPSULE TAKE 1 CAPSULE BY MOUTH ONCE EVERYOTHER WEEK , NOTES: DUPLICATE UNKNOWN TAMSULOSIN HCL 0.4 MG CAPSULE 1 CAPSULE 30 MINUTES AFTER THE SAME MEAL EACH DAY ORALLY ONCE A DAY, NOTES: DUPLICATE UNKNOWN XARELTO 10 MG TABLET 1 TABLET WITH FOOD ORALLY ONCE A DAY, NOTES: 12 DAYS UNKNOWN ADVAIR DISKUS 250-50 MCG/DOSE AEROSOL POWDER BREATH ACTIVATED INHALE ONE PUFF BY MOUTH EVERY DAY RISNE MOUTH AFTER USE , NOTES: DUPLICATE UNKNOWN COREG 12.5MG TABLET 1 TAB ORALLY TWICE DAILY UNKNOWN CYMBALTA 20 MG CAPSULE DELAYED RELEASE PARTICLES 1 CAPSULE ORALLY ONCE A DAY, NOTES: TAPER OFF MEDICATION LIST REVIEWED AND RECONCILED WITH THE PATIENT PAST MEDICAL HISTORY COPD- SPIROMETRY- 02/05/14- DECLINES AT THIS TIME CHF (SYSTOLIC AND DIASTOLIC)- CANNY HYPERLIPIDEMIA HYPERTENSION GERD CHRONIC LOW BACK PAIN- W COMP- DR BOJORQUEZ- CHRONIC PAIN MEDS PER [facility] PAIN MANA[facility]. CHRONIC RT KNEE PAIN VERTIGO (SINCE 1990) OBESITY H/O HEAVY ALCOHOL USE (IN REMISSION) ASCVD 10-YEAR RISK IS 3.6% IN HTE COLONOSCOPY 2009 BILATERAL HYDROCELE EPIDIDYMITIS CYST RIGHT HEPTITIS B (FROM BLOOD TRANSFUSION) PACEMAKER DEFIBRILLATOR 04/2018 HEART MONITOR -WEARING FOR 1 MONTH - V-TACH V-TAC HOSP 06/21/2018 ALLERGIES RED DYE: RASH: ALLERGY TOMATO: NAUSEA/VOMITING: ALLERGY FINASTERIDE: FLARED CHF: CONTRAINDICATION NSAIDS: CONGESTIVE FAILURE: CONTRAINDICATION VOLTAREN: GEL/ SPASMS/PAIN: ALLERGY LYRICA: CHF: CONTRAINDICATION SURGICAL HISTORY NO PERSONAL OR FHX SEVERE REACTION TO ANESTHESIA R HUMERUS FIXATION 1972 R MEDIAL MENISCECTOMY 1981 DRAINAGE OF R NECK ? PERITONSILAR ABSCESS 1996 S/P AICD PLACMENT 2007 L4-S1 SPINAL DECOMPRESSION WITH INSTRUMENTED POSTERIOR AND INTERBODY FUSION. DUROTOMY REPAIR. (TIMOTHY @ [facility] [[email or web address] 03/2011 EGD-REINDL NML 03/13/10 COLONOSCOPY- REINDL. DIVERTICULOSIS- REPEAT 5-10 YEARS 03/13/10 RIGHT KNEE SURGERY BY ORTHO 02/05 NEW ICD 12/29/16 MASS REMOVAL 02/2018 REMOVAL TUMOR LEFT THORACIC 02/27/18 RIGHT KNEE REPLACEMENT 06/2018 FAMILY HISTORY FATHER: ALIVE, BYPASS. KIDNEY CANCER HAD KIDNEY REMOVED. METASTATIC CANCER TO LUNGS., DIAGNOSED WITH HYPERTENSION, HEART DISEASE, CANCER MOTHER: ALIVE, DIAGNOSED WITH DIABETES, HYPERTENSION, HEART DISEASE, OTHER SIBLINGS: 2 BROTHERS HAD BYPASS. SISTER HAS HEART ISSUES SINCE . 1 BROTHER HAD HYDROCELE. 2 BROTHER(S) , 5 SISTER(S) . 1 SON(S) , 1 DAUGHTER(S) - HEALTHY. FATHER-MEDISTATIC LUNG CAMOTHER--HYPOTHYROIDOLDER BROTHER-STROKESON- ASTHMA. SOCIAL HISTORY GENERAL: TOBACCO USE ARE YOU A:FORMER SMOKER QUIT 2007 SMOKED FOR 33 YRS. 1 PACK PER DAY. ALCOHOL SCREENING DID YOU HAVE A DRINK CONTAINING ALCOHOL IN THE PAST YEAR?NO POINTS0 INTERPRETATIONNEGATIVE RECREATIONAL DRUG USE DRUG USE?NO CAFFEINE CAFFEINE USE?NO SEXUAL HX HAD SEX IN THE LAST 12 MONTHS (VAGINAL, ORAL, OR ANAL)?NO HAVE YOU EVER HAD AN STD?NO YAZIDISM [id number] BUDDHIST LANGUAGE LANGUAGES SPOKEN:BELGI[place] EDUCATION LEVEL OF EDUCATION:COLLEGE LEARNING BARRIERS / SPECIAL NEEDS CHANGE FROM LAST VISIT?NO BARRIERS TO LEARNING?NO HEARING IMPAIRED?YES BILATERAL [place] WORSE ON LEFT VISION IMPAIRED?YES COGNITIVELY IMPAIRED?NO :CORRECTIVE LENSES READINESS TO LEARN?YES LEARNING PREFERENCES?NO LEARNING CAPABILITIES PRESENT?YES EMOTIONAL BARRIERS?NO SPECIAL DEVICES?NO CHURCH OFFICIAL NEEDED?NO DOMESTIC VIOLENCE DO YOU FEEL SAFE IN YOUR ENVIRONMENT?YES EXERCISE: WALKS. MARITAL STATUS: .. PAIN CLINIC PFS, CLERGY, PUBLIC HEALTH REFERRALS PFS REFERRAL NEEDED?NO CLERGY REFERRAL NEEDED?NO PUBLIC HEALTH REFERRAL NEEDED?NO WAS THE PROVIDER NOTIFIED OF ANY PERTINENT INFO?YES HAS THE PATIENT BEEN EDUCATED REGARDING HIS/HER PLAN OF CARE?YES PLEASE DOCUMENT ANY ADDTIONAL DETAILS. THORACIC FACET THERAPEUTIC BILATERAL HAS THE PATIENT BEEN EDUCATED REGARDING PAIN, THE RISK FOR PAIN, THE IMPORTANCE OF EFFECTIVE PAIN MANAGEMENT, AND THE PAIN ASSESSMENT PROCESS?YES ADVANCE DIRECTIVE ADVANCE DIRECTIVE DISCUSSED WITH PATIENT:YES PT. HAS HCP CHILDREN 1. MARQUITA ARMSTRONG 2. [place] [place] COPY ON FILE WITH HOSPITAL 05/09/18 REVIEWED WITH PT. 05/23/18 REVIEWED WITH PT LASREVIEWED WITH PATIENT 07/11/18 1346 JSREVIEWED WITH PATIENT 07/27/18 1108 JSREVIEWED WITH PATIENT 08/22/18 0911 JS. HOSPITALIZATION/MAJOR DIAGNOSTIC PROCEDURE CHF 2008 DOG BITE 01/2015 RELATED TO SURGERIES [place] 06/21/18 SURGERY RELATED 06/2018 REVIEW OF SYSTEMS REVIEWED BY: PROVIDER: THELMA BHARDWAJ MD . CONSTITUTIONAL: ANY CHANGE IN YOUR MEDICAL CONDITION? NO . CHILLS NO . FEVER NO . INFECTION: DO YOU HAVE NEW INFECTIONS? NO . DO YOU HAVE HISTORY OF MRSA? NO . MUSCULOSKELETAL: ANY NEW PATTERNS OF PAIN OR NUMBNESS? PAIN IS INCREASED . GASTROENTEROLOGY: ANY NEW CHANGE IN BOWEL CONTROL? NO . GENITOURINARY: ANY NEW CHANGE IN BLADDER CONTROL? NO . IS THERE A CHANCE YOU COULD BE ? NO . HEMATOLOGY/LYMPH: DO YOU TAKE ANY BLOOD THINNERS? (FOR EXAMPLE- COUMADIN, PLAVIX, AGGRENOX, PLATEL, PRADAXA, OR XARELTO) NO . WHEN WAS YOUR LAST DOSE? DATE: TIME: . NEUROLOGY: HAVE YOU FALLEN IN THE PAST 6 MONTHS? NO . ANY NEW EXTREMITY NUMBNESS OR WEAKNESS? NO . CARDIOLOGY: DO YOU HAVE A PACEMAKER OR DEFIBRILLATOR? YES . RESPIRATORY: HAVE YOU BEEN SICK IN THE PAST WEEK? NO . FEVER NO . FLU LIKE SYMPTOMS? NO . COUGH NO . INTEGUMENTARY: DO YOU HAVE ANY RASHES OR OPEN SORES? NO . ALLERGIC/IMMUNO: ARE YOU ALLERGIC TO SHELLFISH OR IV DYE? NO . ANY NEW ALLERGIES? NO . PSYCHIATRIC: DO YOU HAVE THOUGHTS OF HURTING YOURSELF OR SOMEONE ELSE? NO . ARE YOU ABUSED, NEGLECTED, OR IN AN UNSAFE ENVIRONMENT? NO . ENDOCRINOLOGY: ARE YOU DIABETIC? NO . OTHER: DO YOU NEED ANY PRESCRIPTIONS? NO . IF YES, PLEASE LIST: ____ . ANY NEW PROBLEMS WITH YOUR MEDICATIONS? NO . WHEN DID YOU LAST EAT? ____ . WHEN DID YOU LAST DRINK? ____ . WHAT DID YOU LAST DRINK? ____ . NAME OF PERSON DRIVING YOU HOME? ____ . DO YOU HAVE ANY OTHER QUESTIONS OR CONCERNS NO . VITAL SIGNS WT 248.4 LBS, HT 72 IN, BMI 33.69 INDEX, BP 155/73 MM HG, HR 69 /MIN, RR 18 /MIN, TEMP 96.3 F, OXYGEN SAT % 96%, SAFE IN ENV? (Y/N) YES, NA INITIALS SC 12:50, REVIEWED BY: KG. EXAMINATION GENERAL EXAMINATION: PATIENT IS ALERT O X 3 AND COOPERATIVE. ANTALGIC GAIT. PATIENT IS USING A CANE TO AMBULATE. RIGHT LEG IS WEAKER THAN THE LEFT WITH EXTENSION AND FLEXION. CT OF THE THORACIC SPINE DONE ON 12/12/17 SHOWS AN OLD T8 COMPRESSION FRACTURE. CT OF THE LUMBAR SPINE DONE ON 04/13/16 SHOWS STATUS POST LAMINECTOMY AT L4-5 AND L5-S1 AND A BULGING DISC AT L2-3 AND L3-4. STRAIGHT LEG RAISING TEST POSITIVE FOR RADICULOPATHY AT 60 DEGREES ON THE RIGHT LEG. URINE TOXICOLOGY REPORT DONE ON 04/11/18 SHOWS CONCURRENT RESULTS. ASSESSMENTS LUMBAR RADICULOPATHY - M54.16 (PRIMARY) LUMBAR POST-LAMINECTOMY SYNDROME - M96.1 TREATMENT LUMBAR RADICULOPATHY CLINICAL NOTES: WE DISCUSSED SEVERAL ISSUES WITH MR. ARMSTRONG'S PAIN MANAGEMENT CASE. AT THIS TIME, I WOULD LIKE FOR THE PATIENT TO TRY CYMBALTA AGAIN DURING THE NIGHT DUE TO THE SEVERITY OF HIS PAIN. I WOULD ALSO LIKE FOR THE PATIENT TO START TIZANIDINE FOR SPASMS AND PAIN. I WOULD LIKE FOR THE PATIENT TO CONSIDER SWITCHING PERCOCET FOR MORPHINE. I REVIEWED WITH THE PATIENT THE RISK ALTERNATIVES ASSOCIATED WITH THE USE OF OPIOIDS SUCH DEVELOPMENT OF ADDICTION AND TOLERANCE. THE PATIENT IS ALSO AWARE THAT THE CHRONIC USE OF OPIOIDS MAY BE ASSOCIATED WITH THE DEVELOPMENT OF SIDE EFFECTS SUCH CONSTIPATION, DIZZINESS AND HORMONAL CHANGES AMONG OTHERS. THE PATIENT REPORTS THE USE OF THE PRESCRIBED MEDICATION IS ONLY FOR PAIN CONTROL AND THAT NO MISUSE OF THE MEDICATION WILL OCCUR. THE PATIENT IS ALSO AWARE THAT MEDICATIONS SHOULD BE KEPT IN A SECURE AND SAFE PLACE. ISTOP WAS REVIEWED. 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 DUE TO THE INCREASED PAIN, I WOULD LIKE TO MOVE FORWARD WITH A CAUDAL EPIDURAL. WE DISCUSSED THE BENEFITS, RISKS, AND ALTERNATIVES OF THE INJECTION AND THE PATIENT WOULD LIKE TO PROCEED. I WILL REQUEST AUTHORIZATION FOR THE PROCEDURE AND BOOK AFTER APPROVED. THE PATIENT WILL FOLLOW UP WITH ME IN 1 WEEK. INSTRUCTIONS WERE GIVEN, QUESTIONS WERE ANSWERED, PATIENT REPORTS UNDERSTANDING AND AGREES WITH THE PLAN. I, HELADIO SMITH, DOCUMENTED THE ABOVE INFORMATION ACTING A SCRIBE FOR DR. BHARDWAJ. I HAVE REVIEWED THE ABOVE DOCUMENT, WRITTEN BY HELADIO DEE AND I VERIFY THAT IT IS ACCURATE. OTHERS START TIZANIDINE HCL TABLET, 2 MG, 1 TABLET NEEDED, ORALLY FOR SPASMS AND PAIN, EVERY 6 HOURS NEEDED MDD3, 7 DAYS, 20, REFILLS 0 PROCEDURES PN WORKMANS' COMP OPINION IN YOUR OPINION, WAS THE INCIDENT THAT THE PATIENT DESCRIBED THE COMPETENT MEDICAL CAUSE OF THIS INJURY/ILLNESS? YES ARE THE PATIENT'S COMPLAINTS CONSISTENT WITH HIS/HER HISTORY OF THE INJURY/ILLNESS? YES IS THE PATIENT'S HISTORY OF THE INJURY/ILLNESS CONSISTENT WITH YOUR OBJECTIVE FINDING? YES WHAT IS THE PERCENTAGE OF TEMPORARY IMPAIRMENT? MODERATE TO MARKED = 66.7% IS THE PATIENT WORKING? NO DOCTOR ON SITE: THELMA NUNEZ MD PREVENTIVE MEDICINE PAIN CLINIC TEACHING: MEDICATIONS PT GIVEN WRITTEN AND VERBAL EDUCATION ON STARTING TIZANIDINE. PT VERBALIZES UNDERSTANDING OF ALL EDUCATION. SATISH MAYER 09/06/2018 2:46:55 PM > . PROCEDURE TEACHING PT GIVEN WRITTEN AND VERBAL PRE-PROCEDURE INSTRUCTIONS. PT VERBALIZES UNDERSTANDING OF ALL INSTRUCTIONS. SATISH MAYER 09/06/2018 2:47:24 PM > . PROCEDURE CODES FA211 ESTABILISHED PATIENT [facility] FACILITY CHARGE [id number] CURRENT MEDS W/DOSAGES DOCUMENTED G8730 PAIN ASSESS POS TOOL F/U PLAN DOC DISPOSITION & COMMUNICATION FOLLOW UP 1 WEEK ELECTRONICALLY SIGNED BY THELMA BHARDWAJ MD, MD ON 09/26/2018 AT 04:12 PM EST DISCLAIMER : THIS IS A VISIT SUMMARY EXTRACTED FROM THE [employer] CHART. IT IS NOT A COPY OF THE [employer] PROGRESS NOTE. JULIETA
== END ==
LOC: M PAIN 12:45
PROVIDERS: ATTEND Anesthesiology
DX: M54.16 Radiculopathy, lumbar region (principal); M96.1 Postlaminectomy syndrome, not elsewhere classified; J44.9 Chronic obstructive pulmonary disease, unspecified; I50.42 Chronic combined systolic (congestive) and diastolic (congestive) heart failure; E78.5 Hyperlipidemia, unspecified; I11.0 Hypertensive heart disease with heart failure; K21.9 Gastro-esophageal reflux disease without esophagitis; M25.561 Pain in right knee; R42 Dizziness and giddiness; E66.9 Obesity, unspecified; Z95.0 Presence of cardiac pacemaker; Z98.1 Arthrodesis status; Z96.651 Presence of right artificial knee joint; Z79.891 Long term (current) use of opiate analgesic; Z79.82 Long term (current) use of aspirin; Z79.84 Long term (current) use of oral hypoglycemic drugs; Z79.899 Other long term (current) drug therapy; Z91.048 Other nonmedicinal substance allergy status; Z91.018 Allergy to other foods; Z88.6 Allergy status to analgesic agent; Z88.8 Allergy status to other drugs, medicaments and biological substances

== ENCOUNTER → 2018-09-14 | Outpatient (CLI) | payer OTHER ==
[~2018-09-14] MED LIST changes: -LASI40TA PO; +LASI40TA9 PO; -TRAM100T PO; +TRAM100T21 PO
--- NOTE | 2018-10-01 23:34 | ECWPNPC ---
PATIENT NAME: CAMILO ARMSTRONG : 1960 GENDER: MALE VISIT DATE: 09/14/2018 DISCHARGE DATE: 09/14/18917 VISIT LOCKED DATE TIME: PHYSICIAN: THELMA BHARDWAJ MD RESOURCE: THELMA BHARDWAJ MD REASON FOR APPOINTMENT 1. NYSIF BACK PAIN/ MED MANAGE HISTORY OF PRESENT ILLNESS HISTORY OF PRESENT ILLNESS: PAIN THE PATIENT DESCRIBES THE PAIN... 58 YEAR OLD MALE PATIENT WITH A HISTORY OF CHRONIC LOW BACK PAIN. THE PATIENT DESCRIBES THE PAIN ACHING, BURNING, SHARP, STABBING, AND HAVING IT ALL THE TIME WITH A PAIN SCORE OF 7-10/10 DEPENDING ON PHYSICAL ACTIVITY. THE PATIENT WAS HURT IN A WORK RELATED INJURY ON 03/03/1995 WHILE WORKING FOR [employer] WHEN HE WAS WALKING UP THE STAIRS FOR MATERIALS AND SLIPPED AND FELL ON SAND. THE PATIENT SAYS THAT HIS PAIN STARTS IN HIS LOW BACK AREA AND RADIATES DOWN BOTH OF HIS LEGS. THE PATIENT HAS TRIED PHYSICAL THERAPY IN THE PAST, BUT STATES THAT IT DID NOT HELP. THE PATIENT REPORTS THAT MEDICATION MANAGEMENT AND INTERVENTIONAL THERAPY HELP CONTROL HIS PAIN. THE PATIENT IS CURRENTLY USING CYMBALTA, BUT SAYS THAT IT CAUSES DIZZINESS. THE PATIENT IS ALSO CURRENTLY USING GABAPENTIN FOR NEUROPATHIC PAIN, TIZANIDINE FOR SPASMS AND PAIN, AND PERCOCET FOR SOMATIC PAIN. PATIENT DENIES UNEXPLAINABLE WEIGHT LOSS, FEVER, CHILLS, NEW CHANGES ON HIS URINARY OR BOWEL CONTROL. FALL RISK SCREENING: SCREENING :NO FALLS IN THE PAST YEAR CURRENT MEDICATIONS TAKING TIZANIDINE HCL 2 MG TABLET 1 TABLET NEEDED ORALLY FOR SPASMS AND PAIN EVERY 6 HOURS NEEDED MDD3 TAKING LISINOPRIL 2.5MG TABLET 1 TAB ORALLY AT BEDTIME TAKING ASPIRIN 81 MG TABLET DELAYED RELEASE 1 TAB ORALLY DAILY TAKING LIPITOR 80 MG TABLET 1 TABLET ORALLY ONCE A DAY AT BEDTIME TAKING OMEPRAZOLE 40 MG CAPSULE DELAYED RELEASE 1 CAPSULE ORALLY DAILY TAKING NASACORT AQ 55 MCG/ACT AEROSOL 1 PUFF IN EACH NOSTRIL NASALLY ONCE A DAY TAKING METFORMIN HCL 500 MG TABLET 1 TABLET WITH MEALS IN AM, 2 TABS IN THE PM ORALLY 500MG AM, 1000MG AT PM TAKING AVODART 0.5 MG CAPSULE 1 CAPSULE ORALLY ONCE A DAY TAKING ZYRTEC 10 MG TABLET 1 TABLET ORALLY ONCE A DAY TAKING ADVAIR DISKUS 250-50 MCG/DOSE MISCELLANEOUS 1 INHALATION. ALWAYS RINSE YOUR MOUTH OUT AFTER USE DAILY TAKING VENTOLIN HFA 108 (90 BASE) MCG/ACT AEROSOL SOLUTION 2 PUFFS INHALATION EVERY 4-6 HOURS NEEDED TAKING NITROSTAT 0.4 MG TABLET SUBLINGUAL 1 TAB SUBLINGUAL TAB1 TAB FOR CHEST PAIN IF NO RELIEF IN 5 MINUTES TAKE 2ND NITRO IF NO RELIEF AFTER 5 MINUTES TAKE 3RD NITRO ER TAKING MIRALAX 17 GM POWDER 17GM ORALLY DAILY NEEDED TAKING MAGNESIUM 64 MG CAPSULE 1 TAB ORALLY THREE TIMES A DAY TAKING ZONISAMIDE 50 MG CAPSULE 1 CAP ORALLY ONCE DAILY TAKING MULTIVITAMINS 1 TABLET DIRECTED ORALLY DAILY TAKING OXYBUTYNIN CHLORIDE ER 5 MG TABLET EXTENDED RELEASE 24 HOUR TAKE ONE TABLET BY MOUTH EVERY DAY DIRECTED TAKING DRISDOL 34463 UNIT CAPSULE 1 CAPSULE ORALLY ONCE EVERYOTHER WEEK TAKING GABAPENTIN 400 MG CAPSULE 1 CAPSULE ORALLY FOUR TIMES DAILY MDD4 TAKING COLACE 100 MG CAPSULE 1 CAPSULE NEEDED ORALLY TWICE DAILY TAKING FLOMAX 0.4 MG CAPSULE EXTENDED RELEASE 24 HOUR 1 CAPSULE 30 MINUTES AFTER THE SAME MEAL EACH DAY ONCE A DAY TAKING ALDACTONE 25 MG TABLET 1/2 TAB ORALLY DAILY TAKING LASIX 40 MG TABLET 1 TAB ORALLY DAILY NEEDED TAKING ATENOLOL 50 MG TABLET 1 TABLET ORALLY ONCE A DAY TAKING LEVOTHYROXINE SODIUM 25 MCG TABLET TAKE ONE TABLET BY MOUTH EVERY MORNING ON AN EMPTY STOMACH TAKING AMIODARONE HCL 200 MG TABLET 1 TABLET ORALLY TID TAKING POTASSIUM CHLORIDE ER 20 MEQ TABLET EXTENDED RELEASE 1 TABLET WITH FOOD ORALLY BID TAKING DETROL 2 MG TABLET 1 TABLET ORALLY TWICE A DAY TAKING MECLIZINE HCL 25 MG TABLET 1 TABLET ORALLY 1-2 TIMES DAILY NEEDED TAKING TRAMADOL HCL ER 100 MG TABLET EXTENDED RELEASE 24 HOUR 1 TABLET ORALLY ONCE A DAY MDD=1 TAKING VITAMIN D3 2000 UNITS TABLET 1 TAB ORALLY ONCE A DAY TAKING PERCOCET 5-325 MG TABLET 1 TABLET ORALLY Q 4 HRS PRN PAIN MDD=5 FOR 2 WEEKS SUPPLY TAKING VENLAFAXINE HCL ER 37.5 MG CAPSULE EXTENDED RELEASE 24 HOUR 1 CAP ORALLY BEFORE BEDTIME NOT-TAKING SKELAXIN 800 MG TABLET 1 TABLET ORALLY FOUR TIMES DAY WORKMEN COMP NOT-TAKING DRISDOL 43837 UNIT CAPSULE TAKE 1 CAPSULE BY MOUTH ONCE EVERYOTHER WEEK , NOTES: DUPLICATE NOT-TAKING TAMSULOSIN HCL 0.4 MG CAPSULE 1 CAPSULE 30 MINUTES AFTER THE SAME MEAL EACH DAY ORALLY ONCE A DAY, NOTES: DUPLICATE NOT-TAKING XARELTO 10 MG TABLET 1 TABLET WITH FOOD ORALLY ONCE A DAY, NOTES: 12 DAYS NOT-TAKING ADVAIR DISKUS 250-50 MCG/DOSE AEROSOL POWDER BREATH ACTIVATED INHALE ONE PUFF BY MOUTH EVERY DAY RISNE MOUTH AFTER USE , NOTES: DUPLICATE NOT-TAKING COREG 12.5MG TABLET 1 TAB ORALLY TWICE DAILY NOT-TAKING CYMBALTA 20 MG CAPSULE DELAYED RELEASE PARTICLES 1 CAPSULE ORALLY ONCE A DAY, NOTES: TAPER OFF MEDICATION LIST REVIEWED AND RECONCILED WITH THE PATIENT PAST MEDICAL HISTORY COPD- SPIROMETRY- 02/05/14- DECLINES AT THIS TIME CHF (SYSTOLIC AND DIASTOLIC)- SABRINA HYPERLIPIDEMIA HYPERTENSION GERD CHRONIC LOW BACK PAIN- W COMP- DR BOJORQUEZ- CHRONIC PAIN MEDS PER [facility] PAIN MANAGEMENT. CHRONIC RT KNEE PAIN VERTIGO (SINCE 1990) OBESITY H/O HEAVY ALCOHOL USE (IN REMISSION) ASCVD 10-YEAR RISK IS 3.6% IN HTE COLONOSCOPY 2009 BILATERAL HYDROCELE EPIDIDYMITIS CYST RIGHT HEPTITIS B (FROM BLOOD TRANSFUSION) PACEMAKER DEFIBRILLATOR 04/2018 HEART MONITOR -WEARING FOR 1 MONTH - V-TACH V-TAC HOSP 06/21/2018 ALLERGIES RED DYE: RASH: ALLERGY TOMATO: NAUSEA/VOMITING: ALLERGY FINASTERIDE: FLARED CHF: CONTRAINDICATION NSAIDS: CONGESTIVE FAILURE: CONTRAINDICATION VOLTAREN: GEL/ SPASMS/PAIN: ALLERGY LYRICA: CHF: CONTRAINDICATION SURGICAL HISTORY NO PERSONAL OR FHX SEVERE REACTION TO ANESTHESIA R HUMERUS FIXATION 1972 R MEDIAL MENISCECTOMY 1981 DRAINAGE OF R NECK ? PERITONSILAR ABSCESS 1996 S/P AICD PLACMENT 2007 L4-S1 SPINAL DECOMPRESSION WITH INSTRUMENTED POSTERIOR AND INTERBODY FUSION. DUROTOMY REPAIR. (TIMOTHY @ [facility]) 03/2011 EGD-REINDL NML 03/13/10 COLONOSCOPY- REINDL. DIVERTICULOSIS- REPEAT 5-10 YEARS 03/13/10 RIGHT KNEE SURGERY BY ORTHO 02/05 NEW ICD 12/29/16 MASS REMOVAL 02/2018 REMOVAL TUMOR LEFT THORACIC 02/27/18 RIGHT KNEE REPLACEMENT 06/2018 FAMILY HISTORY FATHER: ALIVE, BYPASS. KIDNEY CANCER HAD KIDNEY REMOVED. METASTATIC CANCER TO LUNGS., DIAGNOSED WITH HYPERTENSION, HEART DISEASE, CANCER MOTHER: ALIVE, DIAGNOSED WITH DIABETES, HYPERTENSION, HEART DISEASE, OTHER SIBLINGS: 2 BROTHERS HAD BYPASS. SISTER HAS HEART ISSUES SINCE . 1 BROTHER HAD HYDROCELE. 2 BROTHER(S) , 5 SISTER(S) . 1 SON(S) , 1 DAUGHTER(S) - HEALTHY. FATHER-MEDISTATIC LUNG CAMOTHER--HYPOTHYROIDOLDER BROTHER-STROKESON- ASTHMA. SOCIAL HISTORY GENERAL: TOBACCO USE ARE YOU A:FORMER SMOKER QUIT 2008 SMOKED FOR 33 YRS. 1 PACK PER DAY. ALCOHOL SCREENING DID YOU HAVE A DRINK CONTAINING ALCOHOL IN THE PAST YEAR?NO POINTS0 INTERPRETATIONNEGATIVE RECREATIONAL DRUG USE DRUG USE?NO CAFFEINE CAFFEINE USE?NO SEXUAL HX HAD SEX IN THE LAST 12 MONTHS (VAGINAL, ORAL, OR ANAL)?NO HAVE YOU EVER HAD AN STD?NO LATTER-DAY [id number] LANGUAGES SPOKEN:FINNISH EDUCATION LEVEL OF EDUCATION:COLLEGE LEARNING BARRIERS / SPECIAL NEEDS CHANGE FROM LAST VISIT?NO BARRIERS TO LEARNING?NO HEARING IMPAIRED?YES BILATERAL ANIAK WORSE ON LEFT VISION IMPAIRED?YES COGNITIVELY IMPAIRED?NO :CORRECTIVE LENSES READINESS TO LEARN?YES LEARNING PREFERENCES?NO LEARNING CAPABILITIES PRESENT?YES EMOTIONAL BARRIERS?NO SPECIAL DEVICES?NO INTERNET SALES REPRESENTATIVE NEEDED?NO DOMESTIC VIOLENCE DO YOU FEEL SAFE IN YOUR ENVIRONMENT?YES EXERCISE: WALKS. MARITAL STATUS: .. PAIN CLINIC PFS, CLERGY, PUBLIC HEALTH REFERRALS PFS REFERRAL NEEDED?NO CLERGY REFERRAL NEEDED?NO PUBLIC HEALTH REFERRAL NEEDED?NO WAS THE PROVIDER NOTIFIED OF ANY PERTINENT INFO?YES HAS THE PATIENT BEEN EDUCATED REGARDING HIS/HER PLAN OF CARE?YES PLEASE DOCUMENT ANY ADDTIONAL DETAILS. THORACIC FACET THERAPEUTIC BILATERAL HAS THE PATIENT BEEN EDUCATED REGARDING PAIN, THE RISK FOR PAIN, THE IMPORTANCE OF EFFECTIVE PAIN MANAGEMENT, AND THE PAIN ASSESSMENT PROCESS?YES ADVANCE DIRECTIVE ADVANCE DIRECTIVE DISCUSSED WITH PATIENT:YES PT. HAS HCP CHILDREN 1. MARQUITA PATTI 2. [facility] [place] COPY ON FILE WITH HOSPITAL 05/09/18 REVIEWED WITH PT. 05/23/18 REVIEWED WITH PT LASREVIEWED WITH PATIENT 07/11/18 1346 JSREVIEWED WITH PATIENT 07/27/18 1108 JSREVIEWED WITH PATIENT 08/22/18 0911 JS. HOSPITALIZATION/MAJOR DIAGNOSTIC PROCEDURE CHF 2008 DOG BITE 01/2015 RELATED TO SURGERIES [facility] VTAC 06/21/18 SURGERY RELATED 06/2018 REVIEW OF SYSTEMS REVIEWED BY: PROVIDER: THELMA BHARDWAJ MD . CONSTITUTIONAL: ANY CHANGE IN YOUR MEDICAL CONDITION? NO . CHILLS NO . FEVER NO . INFECTION: DO YOU HAVE NEW INFECTIONS? NO . DO YOU HAVE HISTORY OF MRSA? NO . MUSCULOSKELETAL: ANY NEW PATTERNS OF PAIN OR NUMBNESS? NO . GASTROENTEROLOGY: ANY NEW CHANGE IN BOWEL CONTROL? NO . GENITOURINARY: ANY NEW CHANGE IN BLADDER CONTROL? NO . IS THERE A CHANCE YOU COULD BE ? NO . HEMATOLOGY/LYMPH: DO YOU TAKE ANY BLOOD THINNERS? (FOR EXAMPLE- COUMADIN, PLAVIX, AGGRENOX, PLATEL, PRADAXA, OR XARELTO) NO . WHEN WAS YOUR LAST DOSE? DATE: TIME: . NEUROLOGY: HAVE YOU FALLEN IN THE PAST 6 MONTHS? NO . ANY NEW EXTREMITY NUMBNESS OR WEAKNESS? NO . CARDIOLOGY: DO YOU HAVE A PACEMAKER OR DEFIBRILLATOR? YES, DEFIBRILLATOR AND PACEMAKER . RESPIRATORY: HAVE YOU BEEN SICK IN THE PAST WEEK? NO . FEVER NO . FLU LIKE SYMPTOMS? NO . COUGH NO . INTEGUMENTARY: DO YOU HAVE ANY RASHES OR OPEN SORES? YES, PILONITAL CYST . ALLERGIC/IMMUNO: ARE YOU ALLERGIC TO SHELLFISH OR IV DYE? NO . ANY NEW ALLERGIES? NO . PSYCHIATRIC: DO YOU HAVE THOUGHTS OF HURTING YOURSELF OR SOMEONE ELSE? NO . ARE YOU ABUSED, NEGLECTED, OR IN AN UNSAFE ENVIRONMENT? NO . ENDOCRINOLOGY: ARE YOU DIABETIC? YES . OTHER: DO YOU NEED ANY PRESCRIPTIONS? YES, PERCOSET . IF YES, PLEASE LIST: ____ . ANY NEW PROBLEMS WITH YOUR MEDICATIONS? YES, TRIED CYMBALTA AND MADE PT SLEEPY ALL THE TIME, SO PT STOPPED CYMBALTA, VENLAFAXINE WAS PRESCRIBED TO REPLACE CYMBALTA, HAS NOT STARTED YET . WHEN DID YOU LAST EAT? ____ . WHEN DID YOU LAST DRINK? ____ . WHAT DID YOU LAST DRINK? ____ . NAME OF PERSON DRIVING YOU HOME? ____ . DO YOU HAVE ANY OTHER QUESTIONS OR CONCERNS NO . VITAL SIGNS WT 248.4 LBS, HT 72 IN, BMI 33.69 INDEX, BP 151/71 MM HG, HR 84 /MIN, RR 18 /MIN, TEMP 97.0 F, OXYGEN SAT % 95%, NA INITIALS SC 15:41, REVIEWED BY: EM. EXAMINATION GENERAL EXAMINATION: PATIENT IS ALERT O X 3 AND COOPERATIVE. PATIENT HAS DIFFICULTY STANDING UP. ANTALGIC GAIT. PATIENT IS LIMPING FROM HIS RIGHT LEG. SEVERE TENDERNESS IN THE LOW BACK AREA. BOTH LEGS ARE WEAK AT EXTENSION AND FLEXION. STRAIGHT LEG RAISE OF THE RIGHT LEG IS POSITIVE AT 45 DEGREES FOR RADICULOPATHY. 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 ARMSTRONG'S PAIN MANAGEMENT CASE. WE ARE WAITING FOR THE AUTHORIZATION FOR THE PATIENT'S CAUDAL EPIDURAL AND WE WILL BOOK AFTER WE RECEIVE APPROVAL. I WOULD LIKE THE PATIENT TO STOP TAKING THE CYMBALTA DUE TO THE SIDE EFFECTS AND CONTINUE WITH THE GABAPENTIN FOR NEUROPATHIC PAIN, TIZANIDINE FOR SPASMS AND PAIN, AND PERCOCET FOR SOMATIC PAIN. WE WILL DO A PILL COUNTING TODAY. I DISCUSSED THE CASE WITH THE PATIENT'S CONFIGURATOR AND SHE STATED THAT THE PATIENT IS UNABLE TO USE NSAID'S. THE PATIENT WILL FOLLOW UP IN 7 WEEKS. INSTRUCTIONS WERE GIVEN, QUESTIONS WERE ANSWERED, PATIENT REPORTS UNDERSTANDING AND AGREES WITH THE PLAN. I, RAYO ABRAMS, DOCUMENTED THE ABOVE INFORMATION ACTING A SCRIBE FOR DR. BHARDWAJ. I HAVE REVIEWED THE ABOVE DOCUMENT, WRITTEN BY RAYO DEE AND I VERIFY THAT IT IS ACCURATE. LUMBAR POST-LAMINECTOMY SYNDROME REFILL PERCOCET TABLET, 5-325 MG, 1 TABLET, ORALLY, Q 4 HRS PRN PAIN MDD=5 FOR 2 WEEKS SUPPLY, 30 DAY(S), 150, REFILLS 0 OTHERS REFILL TIZANIDINE HCL TABLET, 2 MG, 1 TABLET NEEDED, ORALLY FOR SPASMS AND PAIN, EVERY 6 HOURS NEEDED MDD3, 30 DAY(S), 90, REFILLS 1 PROCEDURES PN WORKMANS' COMP OPINION IN YOUR OPINION, WAS THE INCIDENT THAT THE PATIENT DESCRIBED THE COMPETENT MEDICAL CAUSE OF THIS INJURY/ILLNESS? YES ARE THE PATIENT'S COMPLAINTS CONSISTENT WITH HIS/HER HISTORY OF THE INJURY/ILLNESS? YES IS THE PATIENT'S HISTORY OF THE INJURY/ILLNESS CONSISTENT WITH YOUR OBJECTIVE FINDING? YES WHAT IS THE PERCENTAGE OF TEMPORARY IMPAIRMENT? MODERATE TO MARKED = 66.7% IS THE PATIENT WORKING? NO DOCTOR ON SITE: THELMA NUNEZ MD PROCEDURE CODES FA211 ESTABILISHED PATIENT [facility] FACILITY CHARGE G8427 CURRENT MEDS W/DOSAGES DOCUMENTED G8730 PAIN ASSESS POS TOOL F/U PLAN DOC DISPOSITION & COMMUNICATION FOLLOW UP 7 WEEKS ELECTRONICALLY SIGNED BY THELMA BHARDWAJ MD, MD ON 10/01/2018 AT 03:28 PM EST DISCLAIMER : THIS IS A VISIT SUMMARY EXTRACTED FROM THE [employer] CHART. IT IS NOT A COPY OF THE [employer] PROGRESS NOTE. MTDD
== END ==
LOC: M PAIN 15:30
PROVIDERS: ATTEND Anesthesiology
DX: M51.17 Intervertebral disc disorders with radiculopathy, lumbosacral region (principal); M96.1 Postlaminectomy syndrome, not elsewhere classified; J44.9 Chronic obstructive pulmonary disease, unspecified; E11.9 Type 2 diabetes mellitus without complications; I50.42 Chronic combined systolic (congestive) and diastolic (congestive) heart failure; I11.0 Hypertensive heart disease with heart failure; E78.5 Hyperlipidemia, unspecified; K21.9 Gastro-esophageal reflux disease without esophagitis; F10.21 Alcohol dependence, in remission; Z79.82 Long term (current) use of aspirin; Z79.84 Long term (current) use of oral hypoglycemic drugs; Z79.891 Long term (current) use of opiate analgesic; Z79.899 Other long term (current) drug therapy; Z88.6 Allergy status to analgesic agent; Z88.8 Allergy status to other drugs, medicaments and biological substances; Z91.018 Allergy to other foods; Z91.02 Food additives allergy status; Z95.0 Presence of cardiac pacemaker; Z96.651 Presence of right artificial knee joint; Z86.69 Personal history of other diseases of the nervous system and sense organs; Z86.19 Personal history of other infectious and parasitic diseases; Z87.81 Personal history of (healed) traumatic fracture; Z86.79 Personal history of other diseases of the circulatory system

== ENCOUNTER → 2018-10-03 | Outpatient (CLI) | payer OTHER ==
--- NOTE | 2018-10-18 01:23 | ECWPNPC ---
PATIENT NAME: CAMILO ARMSTRONG : 1960 GENDER: MALE VISIT DATE: 10/03/2018 DISCHARGE DATE: 10/03/18 1433 VISIT LOCKED DATE TIME: PHYSICIAN: THELMA BHARDWAJ MD RESOURCE: THELMA BHARDWAJ MD REASON FOR APPOINTMENT 1. W/C ANNE-MARIE CLAIMS HISTORY OF PRESENT ILLNESS HISTORY OF PRESENT ILLNESS: PAIN THE PATIENT DESCRIBES THE PAIN... 58 YEAR OLD MALE PATIENT WITH A HISTORY OF CHRONIC THORACIC PAIN. THE PATIENT DESCRIBES THE PAIN ACHING, SORE, SHARP, STABBING, AND CONTINUOUS WITH A PAIN SCORE OF 6-8/10 DEPENDING ON PHYSICAL ACTIVITY. 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 THE PATIENT HAD A TRIGGER POINT INJECTION ON 06/02/2018 AND REPORTS HAVING SIGNIFICANT PAIN RELIEF FOR SEVERAL MONTHS AND SAYS THAT THE PAIN HAS RECENTLY RETURNED. THE PATIENT SAYS HE NOTICED AN INCREASE IN HIS MOBILITY AND FUNCTIONALITY AFTER THE INJECTION. THE PATIENT HAS TRIED PHYSICAL THERAPY IN THE PAST, BUT SAYS IT DID NOT HELP HIM. PATIENT DENIES UNEXPLAINABLE WEIGHT LOSS, FEVER, CHILLS, NEW CHANGES ON HIS URINARY OR BOWEL CONTROL. FALL RISK SCREENING: SCREENING :NO FALLS IN THE PAST YEAR CURRENT MEDICATIONS TAKING PERCOCET 5-325 MG TABLET 1 TABLET ORALLY Q 4 HRS PRN PAIN MDD=5 FOR 2 WEEKS SUPPLY TAKING TIZANIDINE HCL 2 MG TABLET 1 TABLET NEEDED ORALLY FOR SPASMS AND PAIN EVERY 6 HOURS NEEDED MDD3 TAKING LISINOPRIL 2.5MG TABLET 1 TAB ORALLY AT BEDTIME TAKING ASPIRIN 81 MG TABLET DELAYED RELEASE 1 TAB ORALLY DAILY TAKING LIPITOR 80 MG TABLET 1 TABLET ORALLY ONCE A DAY AT BEDTIME TAKING OMEPRAZOLE 40 MG CAPSULE DELAYED RELEASE 1 CAPSULE ORALLY DAILY TAKING NASACORT AQ 55 MCG/ACT AEROSOL 1 PUFF IN EACH NOSTRIL NASALLY ONCE A DAY TAKING METFORMIN HCL 500 MG TABLET 1 TABLET WITH MEALS IN AM, 2 TABS IN THE PM ORALLY 500MG AM, 1000MG AT PM TAKING ZYRTEC 10 MG TABLET 1 TABLET ORALLY ONCE A DAY TAKING ADVAIR DISKUS 250-50 MCG/DOSE MISCELLANEOUS 1 INHALATION. ALWAYS RINSE YOUR MOUTH OUT AFTER USE DAILY TAKING VENTOLIN HFA 108 (90 BASE) MCG/ACT AEROSOL SOLUTION 2 PUFFS INHALATION EVERY 4-6 HOURS NEEDED TAKING NITROSTAT 0.4 MG TABLET SUBLINGUAL 1 TAB SUBLINGUAL TAB1 TAB FOR CHEST PAIN IF NO RELIEF IN 5 MINUTES TAKE 2ND NITRO IF NO RELIEF AFTER 5 MINUTES TAKE 3RD NITRO ER TAKING MIRALAX 17 GM POWDER 17GM ORALLY DAILY NEEDED TAKING MAGNESIUM 64 MG CAPSULE 1 TAB ORALLY BID TAKING MULTIVITAMINS 1 TABLET DIRECTED ORALLY DAILY TAKING OXYBUTYNIN CHLORIDE ER 5 MG TABLET EXTENDED RELEASE 24 HOUR TAKE ONE TABLET BY MOUTH EVERY DAY DIRECTED TAKING DRISDOL 76931 UNIT CAPSULE 1 CAPSULE ORALLY ONCE EVERYOTHER WEEK TAKING ZONISAMIDE 50 MG CAPSULE 1 CAP ORALLY ONCE DAILY TAKING GABAPENTIN 400 MG CAPSULE 1 CAPSULE ORALLY FOUR TIMES DAILY MDD4 TAKING COLACE 100 MG CAPSULE 1 CAPSULE NEEDED ORALLY TWICE DAILY, NOTES: TAKES BID TAKING ALDACTONE 25 MG TABLET 1/2 TAB ORALLY DAILY TAKING LASIX 40 MG TABLET 1 TAB ORALLY DAILY NEEDED TAKING ATENOLOL 50 MG TABLET 1 TABLET ORALLY ONCE A DAY TAKING LEVOTHYROXINE SODIUM 25 MCG TABLET TAKE ONE TABLET BY MOUTH EVERY MORNING ON AN EMPTY STOMACH TAKING AMIODARONE HCL 200 MG TABLET 1 TABLET ORALLY BID TAKING POTASSIUM CHLORIDE ER 20 MEQ TABLET EXTENDED RELEASE 1 TABLET WITH FOOD ORALLY BID TAKING DETROL 2 MG TABLET 1 TABLET ORALLY TWICE A DAY TAKING MECLIZINE HCL 25 MG TABLET 1 TABLET ORALLY 1-2 TIMES DAILY NEEDED TAKING TRAMADOL HCL ER 100 MG TABLET EXTENDED RELEASE 24 HOUR 1 TABLET ORALLY ONCE A DAY MDD=1 TAKING VITAMIN D3 2000 UNITS TABLET 1 TAB ORALLY ONCE A DAY TAKING VENLAFAXINE HCL ER 37.5 MG CAPSULE EXTENDED RELEASE 24 HOUR 1 CAP ORALLY ONCE DAILY TAKING FLOMAX 0.4 MG CAPSULE EXTENDED RELEASE 24 HOUR 2 CAPSULE 30 MINUTES AFTER THE SAME MEAL EACH DAY DAILY TAKING AVODART 0.5 MG CAPSULE 1 CAPSULE ORALLY ONCE A DAY NOT-TAKING ADVAIR DISKUS 250-50 MCG/DOSE AEROSOL POWDER BREATH ACTIVATED INHALE ONE PUFF BY MOUTH EVERY DAY RISNE MOUTH AFTER USE , NOTES: DUPLICATE NOT-TAKING SKELAXIN 800 MG TABLET 1 TABLET ORALLY FOUR TIMES DAY WORKMEN COMP NOT-TAKING DRISDOL 91297 UNIT CAPSULE TAKE 1 CAPSULE BY MOUTH ONCE EVERYOTHER WEEK , NOTES: DUPLICATE NOT-TAKING TAMSULOSIN HCL 0.4 MG CAPSULE 1 CAPSULE 30 MINUTES AFTER THE SAME MEAL EACH DAY ORALLY ONCE A DAY, NOTES: DUPLICATE NOT-TAKING XARELTO 10 MG TABLET 1 TABLET WITH FOOD ORALLY ONCE A DAY, NOTES: 12 DAYS NOT-TAKING COREG 12.5MG TABLET 1 TAB ORALLY TWICE DAILY NOT-TAKING CYMBALTA 20 MG CAPSULE DELAYED RELEASE PARTICLES 1 CAPSULE ORALLY ONCE A DAY, NOTES: TAPER OFF MEDICATION LIST REVIEWED AND RECONCILED WITH THE PATIENT PAST MEDICAL HISTORY COPD- SPIROMETRY- 02/05/14- DECLINES AT THIS TIME CHF (SYSTOLIC AND DIASTOLIC)- CANNY HYPERLIPIDEMIA HYPERTENSION GERD CHRONIC LOW BACK PAIN- W COMP- DR BOJORQUEZ- CHRONIC PAIN MEDS PER [facility] PAIN MANAGEMENT. CHRONIC RT KNEE PAIN VERTIGO (SINCE 1990) OBESITY H/O HEAVY ALCOHOL USE (IN REMISSION) ASCVD 10-YEAR RISK IS 3.6% IN HTE COLONOSCOPY 2009 BILATERAL HYDROCELE EPIDIDYMITIS CYST RIGHT HEPTITIS B (FROM BLOOD TRANSFUSION) PACEMAKER DEFIBRILLATOR 04/2018 HEART MONITOR -WEARING FOR 1 MONTH - V-TACH V-TAC HOSP 06/21/2018 ALLERGIES RED DYE: RASH: ALLERGY TOMATO: NAUSEA/VOMITING: ALLERGY FINASTERIDE: FLARED CHF: CONTRAINDICATION NSAIDS: CONGESTIVE FAILURE: CONTRAINDICATION VOLTAREN: GEL/ SPASMS/PAIN: ALLERGY LYRICA: CHF: CONTRAINDICATION SURGICAL HISTORY NO PERSONAL OR FHX SEVERE REACTION TO ANESTHESIA R HUMERUS FIXATION 1972 R MEDIAL MENISCECTOMY 1981 DRAINAGE OF R NECK ? PERITONSILAR ABSCESS 1996 S/P AICD PLACMENT 2007 L4-S1 SPINAL DECOMPRESSION WITH INSTRUMENTED POSTERIOR AND INTERBODY FUSION. DUROTOMY REPAIR. ([place] [facility]) 03/2011 EGD-REINDL NML 03/13/10 COLONOSCOPY- REINDL. DIVERTICULOSIS- REPEAT 5-10 YEARS 03/13/10 RIGHT KNEE SURGERY BY ORTHO 02/05 NEW ICD 12/29/16 MASS REMOVAL 02/2018 REMOVAL TUMOR LEFT THORACIC 02/27/18 RIGHT KNEE REPLACEMENT 06/2018 FAMILY HISTORY FATHER: ALIVE, BYPASS. KIDNEY CANCER HAD KIDNEY REMOVED. METASTATIC CANCER TO LUNGS., DIAGNOSED WITH HYPERTENSION, HEART DISEASE, CANCER MOTHER: ALIVE, DIAGNOSED WITH DIABETES, HYPERTENSION, HEART DISEASE, OTHER SIBLINGS: 2 BROTHERS HAD BYPASS. SISTER HAS HEART ISSUES SINCE . 1 BROTHER HAD HYDROCELE. 2 BROTHER(S) , 5 SISTER(S) . 1 SON(S) , 1 DAUGHTER(S) - HEALTHY. FATHER-MEDISTATIC LUNG CAMOTHER--HYPOTHYROIDOLDER BROTHER-STROKESON- ASTHMA. SOCIAL HISTORY GENERAL: TOBACCO USE ARE YOU A:FORMER SMOKER QUIT 2007 SMOKED FOR 33 YRS. 1 PACK PER DAY. ALCOHOL SCREENING DID YOU HAVE A DRINK CONTAINING ALCOHOL IN THE PAST YEAR?NO POINTS0 INTERPRETATIONNEGATIVE RECREATIONAL DRUG USE DRUG USE?NO CAFFEINE CAFFEINE USE?NO SEXUAL HX HAD SEX IN THE LAST 12 MONTHS (VAGINAL, ORAL, OR ANAL)?NO HAVE YOU EVER HAD AN STD?NO TENRIISM [id number] AMISH LANGUAGE LANGUAGES SPOKEN:DJIBOUTIAN EDUCATION LEVEL OF EDUCATION:COLLEGE LEARNING BARRIERS / SPECIAL NEEDS CHANGE FROM LAST VISIT?NO BARRIERS TO LEARNING?NO HEARING IMPAIRED?YES BILATERAL UPPER [place] WORSE ON LEFT VISION IMPAIRED?YES COGNITIVELY IMPAIRED?NO :CORRECTIVE LENSES READINESS TO LEARN?YES LEARNING PREFERENCES?NO LEARNING CAPABILITIES PRESENT?YES EMOTIONAL BARRIERS?NO SPECIAL DEVICES?NO TEAM 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 MARITAL STATUS: .. PAIN CLINIC PFS, CLERGY, PUBLIC HEALTH REFERRALS PFS REFERRAL NEEDED?NO CLERGY REFERRAL NEEDED?NO PUBLIC HEALTH REFERRAL NEEDED?NO WAS THE PROVIDER NOTIFIED OF ANY PERTINENT INFO?YES HAS THE PATIENT BEEN EDUCATED REGARDING HIS/HER PLAN OF CARE?YES PLEASE DOCUMENT ANY ADDTIONAL DETAILS. THORACIC FACET THERAPEUTIC BILATERAL HAS THE PATIENT BEEN EDUCATED REGARDING PAIN, THE RISK FOR PAIN, THE IMPORTANCE OF EFFECTIVE PAIN MANAGEMENT, AND THE PAIN ASSESSMENT PROCESS?YES ADVANCE DIRECTIVE ADVANCE DIRECTIVE DISCUSSED WITH PATIENT:YES PT. HAS HCP CHILDREN 1. MARQUIAT ARMSTRONG 2. [place] COPY ON FILE WITH HOSPITAL 05/09/18 REVIEWED WITH PT. 05/23/18 REVIEWED WITH PT LASREVIEWED WITH PATIENT 07/11/18 1346 JSREVIEWED WITH PATIENT 07/27/18 1108 JSREVIEWED WITH PATIENT 08/22/18 0911 JSREVIEWED WITH PATIENT 10/03/18 1335 BV. HOSPITALIZATION/MAJOR DIAGNOSTIC PROCEDURE CHF 2007 DOG BITE 01/2015 RELATED TO SURGERIES [facility] 06/21/18 SURGERY RELATED 06/2018 REVIEW OF SYSTEMS REVIEWED BY: PROVIDER: THELMA BHARDWAJ MD . CONSTITUTIONAL: ANY CHANGE IN YOUR MEDICAL CONDITION? NO . CHILLS NO . FEVER NO . INFECTION: DO YOU HAVE NEW INFECTIONS? NO . DO YOU HAVE HISTORY OF MRSA? NO . MUSCULOSKELETAL: ANY NEW PATTERNS OF PAIN OR NUMBNESS? NO, PT STATES HE HAS HAD INCREASED PAIN IN RIGHT SIDE OF BACK, THORACIC AREA THAT WRAPS AROUND RIBS TOWARDS FRONT. STATES HE HAD CARRIED GALLONS OF WATER ABOUT A WEEK AGO AND HAS HAD INCREASED PAIN IN THIS AREA SINCE. . GASTROENTEROLOGY: ANY NEW CHANGE IN BOWEL CONTROL? NO . GENITOURINARY: ANY NEW CHANGE IN BLADDER CONTROL? NO . IS THERE A CHANCE YOU COULD BE ? NO . HEMATOLOGY/LYMPH: DO YOU TAKE ANY BLOOD THINNERS? (FOR EXAMPLE- COUMADIN, PLAVIX, AGGRENOX, PLATEL, PRADAXA, OR XARELTO) NO . WHEN WAS YOUR LAST DOSE? DATE: TIME: . NEUROLOGY: HAVE YOU FALLEN IN THE PAST 6 MONTHS? NO . ANY NEW EXTREMITY NUMBNESS OR WEAKNESS? NO . CARDIOLOGY: DO YOU HAVE A PACEMAKER OR DEFIBRILLATOR? YES, DEFIBRILLATOR . RESPIRATORY: HAVE YOU BEEN SICK IN THE PAST WEEK? NO . FEVER NO . FLU LIKE SYMPTOMS? NO . COUGH NO . INTEGUMENTARY: DO YOU HAVE ANY RASHES OR OPEN SORES? NO . ALLERGIC/IMMUNO: ARE YOU ALLERGIC TO SHELLFISH OR IV DYE? NO . ANY NEW ALLERGIES? NO . PSYCHIATRIC: DO YOU HAVE THOUGHTS OF HURTING YOURSELF OR SOMEONE ELSE? NO . ARE YOU ABUSED, NEGLECTED, OR IN AN UNSAFE ENVIRONMENT? NO . ENDOCRINOLOGY: ARE YOU DIABETIC? YES, ON MEDICATION . OTHER: DO YOU NEED ANY PRESCRIPTIONS? NO . IF YES, PLEASE LIST: ____ . ANY NEW PROBLEMS WITH YOUR MEDICATIONS? NO . WHEN DID YOU LAST EAT? ____ . WHEN DID YOU LAST DRINK? ____ . WHAT DID YOU LAST DRINK? ____ . NAME OF PERSON DRIVING YOU HOME? ____ . DO YOU HAVE ANY OTHER QUESTIONS OR CONCERNS NO . VITAL SIGNS WT 253.2 LBS, HT 72 IN, BMI 34.34 INDEX, BP 140/65 MM HG, HR 109 /MIN, RR 18 /MIN, TEMP 96.3 F, OXYGEN SAT % 94%, NA INITIALS AW 1315, REVIEWED BY: BV. EXAMINATION GENERAL EXAMINATION: PATIENT IS ALERT O X 3 AND COOPERATIVE. TENDERNESS IN THE PARASPINAL MUSCLE GROUP IN THE THORACIC AREA. PRESENCE OF TRIGGER POINTS AND BANDS OF TISSUE WITH RESTRICTION OF MOVEMENT OF THE BACK. ASSESSMENTS MYALGIA, OTHER SITE - M79.18 (PRIMARY) TREATMENT MYALGIA, OTHER SITE CLINICAL NOTES: WE DISCUSSED SEVERAL ISSUES WITH MR. ARMSTRONG'S PAIN MANAGEMENT CASE. DUE TO THE TRIGGER POINTS, BANDS OF TISSUE, AND RESTRICTION OF MOVEMENT, I WOULD LIKE TO MOVE FORWARD WITH A TRIGGER POINT INJECTION AT THIS TIME. WE DISCUSSED THE BENEFITS, RISKS, AND ALTERNATIVES OF THE INJECTION AND THE PATIENT WOULD LIKE TO PROCEED. THE PATIENT WILL FOLLOW UP 1 MONTH AFTER THE INJECTION. INSTRUCTIONS WERE GIVEN, QUESTIONS WERE ANSWERED, PATIENT REPORTS UNDERSTANDING AND AGREES WITH THE PLAN. I, RAYO ABRAMS, DOCUMENTED THE ABOVE INFORMATION ACTING A SCRIBE FOR DR. BHARDWAJ. I HAVE REVIEWED THE ABOVE DOCUMENT, WRITTEN BY RAYO DANIBWillard AND I VERIFY THAT IT IS ACCURATE. PROCEDURES PN WORKMANS' COMP OPINION IN YOUR OPINION, WAS THE INCIDENT THAT THE PATIENT DESCRIBED THE COMPETENT MEDICAL CAUSE OF THIS INJURY/ILLNESS? YES ARE THE PATIENT'S COMPLAINTS CONSISTENT WITH HIS/HER HISTORY OF THE INJURY/ILLNESS? YES IS THE PATIENT'S HISTORY OF THE INJURY/ILLNESS CONSISTENT WITH YOUR OBJECTIVE FINDING? YES WHAT IS THE PERCENTAGE OF TEMPORARY IMPAIRMENT? MODERATE TO MARKED = 66.7% IS THE PATIENT WORKING? NO DOCTOR ON SITE: THELMA NUNEZ MD PROCEDURE CODES FA211 ESTABILISHED PATIENT [facility] FACILITY CHARGE G8427 CURRENT MEDS W/DOSAGES DOCUMENTED G8730 PAIN ASSESS POS TOOL F/U PLAN DOC DISPOSITION & COMMUNICATION FOLLOW UP 4 WEEKS ELECTRONICALLY SIGNED BY THELMA BHARDWAJ MD, MD ON 10/17/2018 AT 02:54 PM EST DISCLAIMER : THIS IS A VISIT SUMMARY EXTRACTED FROM THE [employer] CHART. IT IS NOT A COPY OF THE [employer] PROGRESS NOTE. JULIETA
== END ==
LOC: M PAIN 13:00
PROVIDERS: ATTEND Anesthesiology
DX: M79.18 Myalgia, other site (principal); M54.6 Pain in thoracic spine; J44.9 Chronic obstructive pulmonary disease, unspecified; I50.42 Chronic combined systolic (congestive) and diastolic (congestive) heart failure; E78.5 Hyperlipidemia, unspecified; E11.9 Type 2 diabetes mellitus without complications; I11.0 Hypertensive heart disease with heart failure; K21.9 Gastro-esophageal reflux disease without esophagitis; F10.10 Alcohol abuse, uncomplicated; Z79.82 Long term (current) use of aspirin; Z79.84 Long term (current) use of oral hypoglycemic drugs; Z79.891 Long term (current) use of opiate analgesic; Z79.899 Other long term (current) drug therapy; Z88.6 Allergy status to analgesic agent; Z88.8 Allergy status to other drugs, medicaments and biological substances; Z91.02 Food additives allergy status; Z91.018 Allergy to other foods; Z86.69 Personal history of other diseases of the nervous system and sense organs; Z87.891 Personal history of nicotine dependence; Z96.651 Presence of right artificial knee joint; Z95.810 Presence of automatic (implantable) cardiac defibrillator

== ENCOUNTER 2018-10-12 15:40 | Emergency (ER) | payer OTHER ==
[~2018-10-12] VITALS: Ht 182.9 cm; Wt 116.5 kg
[2018-10-12] MEDS ORDERED: MORPHINE 10 MG/ML 1ML VIAL (J2270) IM ONE (16:45)
[2018-10-12 17:22] VITALS: BP 125/78
== END 2018-10-12 17:25 | disposition home or self-care (01) ==
LOC: M ED 15:40
DX: M54.9 Dorsalgia, unspecified (principal); Z79.899 Other long term (current) drug therapy; Z88.6 Allergy status to analgesic agent; Z88.8 Allergy status to other drugs, medicaments and biological substances; Z91.89 Other specified personal risk factors, not elsewhere classified; Z91.018 Allergy to other foods
CPT/HCPCS: 96372; 99283; J2270

== ENCOUNTER → 2018-10-23 | Outpatient (CLI) | payer OTHER ==
[~2018-10-23] MED LIST changes: +ISOVUE-M 300 61% 15ML VIAL (Q9967) As Ordered ONE; +LIDOCAINE 1% SDV INJ 30 ML VIAL As Ordered ONE; +methylPREDNISolone SUSP 40 MG/ML (DEPO-medrol) VIAL (J1030) As Ordered ONE
--- NOTE | 2018-10-23 11:17 | REP ---
Partial lumbar spine series: Two views . History: Injection procedure for pain. 24 seconds of fluoroscopy time is reported. Findings: A sequence of two fluoroscopically obtained last image hold procedural spot radiographs of the lumbar spine document needle position and contrast injection associated with injection procedure. Electronically Signed by Lele Mcrae MD 10/23/2018 11:09 A
--- NOTE | 2018-11-06 00:01 | ECWPNPC ---
PATIENT NAME: CAMILO ARMSTRONG : 1960 GENDER: MALE VISIT DATE: 10/23/2018 DISCHARGE DATE: 10/23/18 1113 VISIT LOCKED DATE TIME: PHYSICIAN: THELMA BHARDWAJ MD RESOURCE: THELMA BHARDWAJ MD REASON FOR APPOINTMENT 1. W/C LESI HISTORY OF PRESENT ILLNESS HISTORY OF PRESENT ILLNESS: PAIN THE PATIENT DESCRIBES THE PAIN... FALL RISK SCREENING: SCREENING :NO FALLS IN THE PAST YEAR CURRENT MEDICATIONS TAKING ZYRTEC 10 MG TABLET 1 TABLET ORALLY ONCE A DAY, NOTES: 10-22-18 220- TAKING METFORMIN HCL 500 MG TABLET DIRECTED ORALLY 500 MG IN AM AND 1000MG AT DINNER, NOTES: 1700 TAKING OMEPRAZOLE 40 MG CAPSULE DELAYED RELEASE 1 CAPSULE ORALLY ONCE A DAY, NOTES: 10-22-18 0800 TAKING PERCOCET 5-325 MG TABLET 1 TABLET ORALLY Q 4 HRS PRN PAIN MDD=5, NOTES: 10-23-18 07 TAKING TIZANIDINE HCL 2 MG TABLET 1 TABLET NEEDED ORALLY FOR SPASMS AND PAIN EVERY 6 HOURS NEEDED MDD3, NOTES: 10-22-18 08 TAKING LISINOPRIL 2.5MG TABLET 1 TAB ORALLY AT BEDTIME, NOTES: 10-22-18 86560 TAKING ASPIRIN 81 MG TABLET DELAYED RELEASE 1 TAB ORALLY DAILY, NOTES: 10-22-18 09 TAKING LIPITOR 80 MG TABLET 1 TABLET ORALLY ONCE A DAY AT BEDTIME, NOTES: 10-23-18 2100 TAKING NASACORT AQ 55 MCG/ACT AEROSOL 1 PUFF IN EACH NOSTRIL NASALLY ONCE A DAY, NOTES: NOT LATELY TAKING ADVAIR DISKUS 250-50 MCG/DOSE MISCELLANEOUS 1 INHALATION. ALWAYS RINSE YOUR MOUTH OUT AFTER USE DAILY, NOTES: 10-23-18 07 TAKING VENTOLIN HFA 108 (90 BASE) MCG/ACT AEROSOL SOLUTION 2 PUFFS INHALATION EVERY 4-6 HOURS NEEDED, NOTES: NOT LATELY TAKING NITROSTAT 0.4 MG TABLET SUBLINGUAL 1 TAB SUBLINGUAL TAB1 TAB FOR CHEST PAIN IF NO RELIEF IN 5 MINUTES TAKE 2ND NITRO IF NO RELIEF AFTER 5 MINUTES TAKE 3RD NITRO ER, NOTES: NOT IN A COUPLE MONTHS TAKING MIRALAX 17 GM POWDER 17GM ORALLY DAILY NEEDED, NOTES: 10-17-18 09 TAKING MAGNESIUM 64 MG CAPSULE 1 TAB ORALLY BID, NOTES: 10-23-18599 TAKING MULTIVITAMINS 1 TABLET DIRECTED ORALLY DAILY, NOTES: 10-23-18699 TAKING OXYBUTYNIN CHLORIDE ER 5 MG TABLET EXTENDED RELEASE 24 HOUR TAKE ONE TABLET BY MOUTH EVERY DAY DIRECTED , NOTES: 10-23-18699 TAKING DRISDOL 71483 UNIT CAPSULE 1 CAPSULE ORALLY ONCE EVERYOTHER WEEK, NOTES: LAST TUESDAY TAKING ZONISAMIDE 50 MG CAPSULE 1 CAP ORALLY ONCE DAILY, NOTES: 10-22-182099 TAKING GABAPENTIN 400 MG CAPSULE 1 CAPSULE ORALLY FOUR TIMES DAILY MDD4, NOTES: 10-23-18599 TAKING COLACE 100 MG CAPSULE 1 CAPSULE NEEDED ORALLY TWICE DAILY, NOTES: TAKES BID 10-23-18 TAKING ALDACTONE 25 MG TABLET 1/2 TAB ORALLY DAILY, NOTES: 10-22-182099 TAKING LASIX 40 MG TABLET 1 TAB ORALLY DAILY NEEDED, NOTES: NOT LATELY TAKING ATENOLOL 50 MG TABLET 1 TABLET ORALLY ONCE A DAY, NOTES: 10-23-18699 TAKING LEVOTHYROXINE SODIUM 25 MCG TABLET TAKE ONE TABLET BY MOUTH EVERY MORNING ON AN EMPTY STOMACH , NOTES: 699 TAKING AMIODARONE HCL 200 MG TABLET 1 TABLET ORALLY BID, NOTES: 10-23-18699 TAKING POTASSIUM CHLORIDE ER 20 MEQ TABLET EXTENDED RELEASE 1 TABLET WITH FOOD ORALLY BID, NOTES: 10-23-18699 TAKING DETROL 2 MG TABLET 1 TABLET ORALLY TWICE A DAY, NOTES: 10-23-18599 TAKING MECLIZINE HCL 25 MG TABLET 1 TABLET ORALLY 1-2 TIMES DAILY NEEDED, NOTES: 10-23-18799 TAKING TRAMADOL HCL ER 100 MG TABLET EXTENDED RELEASE 24 HOUR 1 TABLET ORALLY ONCE A DAY MDD=1, NOTES: 10-23-18699 TAKING VITAMIN D3 2000 UNITS TABLET 1 TAB ORALLY ONCE A DAY, NOTES: 10-22-182099 TAKING FLOMAX 0.4 MG CAPSULE EXTENDED RELEASE 24 HOUR 2 CAPSULE 30 MINUTES AFTER THE SAME MEAL EACH DAY DAILY, NOTES: 10-23-18599 TAKING AVODART 0.5 MG CAPSULE 1 CAPSULE ORALLY ONCE A DAY, NOTES: 10-22-182099 NOT-TAKING VENLAFAXINE HCL ER 37.5 MG CAPSULE EXTENDED RELEASE 24 HOUR 1 CAP ORALLY ONCE DAILY, NOTES: NOT TAKING UNKNOWN ADVAIR DISKUS 250-50 MCG/DOSE AEROSOL POWDER BREATH ACTIVATED INHALE ONE PUFF BY MOUTH EVERY DAY RISNE MOUTH AFTER USE , NOTES: DUPLICATE UNKNOWN SKELAXIN 800 MG TABLET 1 TABLET ORALLY FOUR TIMES DAY WORKMEN COMP UNKNOWN DRISDOL 96098 UNIT CAPSULE TAKE 1 CAPSULE BY MOUTH ONCE EVERYOTHER WEEK , NOTES: DUPLICATE UNKNOWN TAMSULOSIN HCL 0.4 MG CAPSULE 1 CAPSULE 30 MINUTES AFTER THE SAME MEAL EACH DAY ORALLY ONCE A DAY, NOTES: DUPLICATE UNKNOWN XARELTO 10 MG TABLET 1 TABLET WITH FOOD ORALLY ONCE A DAY, NOTES: 12 DAYS UNKNOWN COREG 12.5MG TABLET 1 TAB ORALLY TWICE DAILY UNKNOWN CYMBALTA 20 MG CAPSULE DELAYED RELEASE PARTICLES 1 CAPSULE ORALLY ONCE A DAY, NOTES: TAPER OFF MEDICATION LIST REVIEWED AND RECONCILED WITH THE PATIENT PAST MEDICAL HISTORY COPD- SPIROMETRY- 02/05/14- DECLINES AT THIS TIME CHF (SYSTOLIC AND DIASTOLIC)- SABRINA HYPERLIPIDEMIA HYPERTENSION GERD CHRONIC LOW BACK PAIN- W COMP- DR BOJORQUEZ- CHRONIC PAIN MEDS PER [facility] PAIN MANAGEMENT. CHRONIC RT KNEE PAIN VERTIGO (SINCE 1990) OBESITY H/O HEAVY ALCOHOL USE (IN REMISSION) ASCVD 10-YEAR RISK IS 3.6% IN HTE COLONOSCOPY 2009 BILATERAL HYDROCELE EPIDIDYMITIS CYST RIGHT HEPTITIS B (FROM BLOOD TRANSFUSION) PACEMAKER DEFIBRILLATOR 04/2018 HEART MONITOR -WEARING FOR 1 MONTH - V-TACH V-TAC HOSP 06/21/2018 ALLERGIES RED DYE: RASH: ALLERGY TOMATO: NAUSEA/VOMITING: ALLERGY FINASTERIDE: FLARED CHF: CONTRAINDICATION NSAIDS: CONGESTIVE FAILURE: CONTRAINDICATION VOLTAREN: GEL/ SPASMS/PAIN: ALLERGY LYRICA: CHF: CONTRAINDICATION SURGICAL HISTORY NO PERSONAL OR FHX SEVERE REACTION TO ANESTHESIA R HUMERUS FIXATION 1972 R MEDIAL MENISCECTOMY 1981 DRAINAGE OF R NECK ? PERITONSILAR ABSCESS 1996 S/P AICD PLACMENT 2007 L4-S1 SPINAL DECOMPRESSION WITH INSTRUMENTED POSTERIOR AND INTERBODY FUSION. DUROTOMY REPAIR. (RUIDOSO DOWNS @ [facility]) 03/2011 EGD-REINDL NML 03/13/10 COLONOSCOPY- REINDL. DIVERTICULOSIS- REPEAT 5-10 YEARS 03/13/10 RIGHT KNEE SURGERY BY ORTHO 02/05 NEW ICD 12/29/16 MASS REMOVAL 02/2018 REMOVAL TUMOR LEFT THORACIC 02/27/18 RIGHT KNEE REPLACEMENT 06/2018 FAMILY HISTORY FATHER: ALIVE, BYPASS. KIDNEY CANCER HAD KIDNEY REMOVED. METASTATIC CANCER TO LUNGS., DIAGNOSED WITH HYPERTENSION, HEART DISEASE, CANCER MOTHER: ALIVE, DIAGNOSED WITH DIABETES, HYPERTENSION, HEART DISEASE, OTHER SIBLINGS: 2 BROTHERS HAD BYPASS. SISTER HAS HEART ISSUES SINCE . 1 BROTHER HAD HYDROCELE. 2 BROTHER(S) , 5 SISTER(S) . 1 SON(S) , 1 DAUGHTER(S) - HEALTHY. FATHER-MEDISTATIC LUNG CAMOTHER--HYPOTHYROIDOLDER BROTHER-STROKESON- ASTHMA. SOCIAL HISTORY GENERAL: TOBACCO USE ARE YOU A:FORMER SMOKER QUIT 2007 SMOKED FOR 33 YRS. 1 PACK PER DAY. ALCOHOL SCREENING DID YOU HAVE A DRINK CONTAINING ALCOHOL IN THE PAST YEAR?NO POINTS0 INTERPRETATIONNEGATIVE RECREATIONAL DRUG USE DRUG USE?NO CAFFEINE CAFFEINE USE?NO SEXUAL HX HAD SEX IN THE LAST 12 MONTHS (VAGINAL, ORAL, OR ANAL)?NO HAVE YOU EVER HAD AN STD?NO RESTORATION [id number] [employer] LANGUAGE LANGUAGES SPOKEN:URDU EDUCATION LEVEL OF EDUCATION:COLLEGE LEARNING BARRIERS / SPECIAL NEEDS CHANGE FROM LAST VISIT?NO BARRIERS TO LEARNING?NO HEARING IMPAIRED?YES BILATERAL NATIVE WORSE ON LEFT VISION IMPAIRED?YES COGNITIVELY IMPAIRED?NO :CORRECTIVE LENSES READINESS TO LEARN?YES LEARNING PREFERENCES?NO LEARNING CAPABILITIES PRESENT?YES EMOTIONAL BARRIERS?NO SPECIAL DEVICES?NO V/STOL LANDING SIGNAL OFFICER NEEDED?NO DOMESTIC VIOLENCE DO YOU FEEL SAFE IN YOUR ENVIRONMENT?YES EXERCISE: WALKS. MARITAL STATUS: .. PAIN CLINIC PFS, CLERGY, PUBLIC HEALTH REFERRALS PFS REFERRAL NEEDED?NO CLERGY REFERRAL NEEDED?NO PUBLIC HEALTH REFERRAL NEEDED?NO WAS THE PROVIDER NOTIFIED OF ANY PERTINENT INFO?YES HAS THE PATIENT BEEN EDUCATED REGARDING HIS/HER PLAN OF CARE?YES PLEASE DOCUMENT ANY ADDTIONAL DETAILS. THORACIC FACET THERAPEUTIC BILATERAL HAS THE PATIENT BEEN EDUCATED REGARDING PAIN, THE RISK FOR PAIN, THE IMPORTANCE OF EFFECTIVE PAIN MANAGEMENT, AND THE PAIN ASSESSMENT PROCESS?YES ADVANCE DIRECTIVE ADVANCE DIRECTIVE DISCUSSED WITH PATIENT:YES PT. HAS HCP CHILDREN 1. MARQUITA ARMSTRONG 2. [place] COPY ON FILE WITH HOSPITAL 05/09/18 REVIEWED WITH PT. 05/23/18 REVIEWED WITH PT LASREVIEWED WITH PATIENT 07/11/18 1346 JSREVIEWED WITH PATIENT 07/27/18 1108 JSREVIEWED WITH PATIENT 08/22/18 0911 JSREVIEWED WITH PATIENT 10/03/18 1335 BV. HOSPITALIZATION/MAJOR DIAGNOSTIC PROCEDURE CHF 2008 DOG BITE 01/2015 RELATED TO SURGERIES [facility] VTAC 06/21/18 SURGERY RELATED 06/2018 REVIEW OF SYSTEMS REVIEWED BY: PROVIDER: . CONSTITUTIONAL: ANY CHANGE IN YOUR MEDICAL CONDITION? NO . CHILLS NO . FEVER NO . INFECTION: DO YOU HAVE NEW INFECTIONS? NO . DO YOU HAVE HISTORY OF MRSA? NO . MUSCULOSKELETAL: ANY NEW PATTERNS OF PAIN OR NUMBNESS? NO . GASTROENTEROLOGY: ANY NEW CHANGE IN BOWEL CONTROL? NO . GENITOURINARY: ANY NEW CHANGE IN BLADDER CONTROL? NO . IS THERE A CHANCE YOU COULD BE ? NO . HEMATOLOGY/LYMPH: DO YOU TAKE ANY BLOOD THINNERS? (FOR EXAMPLE- COUMADIN, PLAVIX, AGGRENOX, PLATEL, PRADAXA, OR XARELTO) NO . WHEN WAS YOUR LAST DOSE? DATE: TIME: . NEUROLOGY: HAVE YOU FALLEN IN THE PAST 12 MONTHS? NO . ANY NEW EXTREMITY NUMBNESS OR WEAKNESS? NO . CARDIOLOGY: DO YOU HAVE A PACEMAKER OR DEFIBRILLATOR? NO . RESPIRATORY: HAVE YOU BEEN SICK IN THE PAST WEEK? NO . FEVER NO . FLU LIKE SYMPTOMS? NO . COUGH NO . INTEGUMENTARY: DO YOU HAVE ANY RASHES OR OPEN SORES? NO . ALLERGIC/IMMUNO: ARE YOU ALLERGIC TO IV DYE? NO . ANY NEW ALLERGIES? NO . PSYCHIATRIC: DO YOU HAVE THOUGHTS OF HURTING YOURSELF OR SOMEONE ELSE? NO . ARE YOU ABUSED, NEGLECTED, OR IN AN UNSAFE ENVIRONMENT? NO . ENDOCRINOLOGY: ARE YOU DIABETIC? NO . OTHER: DO YOU NEED ANY PRESCRIPTIONS? NO . IF YES, PLEASE LIST: ____ . ANY NEW PROBLEMS WITH YOUR MEDICATIONS? NO . WHEN DID YOU LAST EAT? ____ . WHEN DID YOU LAST DRINK? ____ . WHAT DID YOU LAST DRINK? ____ . NAME OF PERSON DRIVING YOU HOME? ____ . DO YOU HAVE ANY OTHER QUESTIONS OR CONCERNS NO . VITAL SIGNS WT 260.4 LBS, HT 72 IN, BMI 35.31 INDEX, BP 109/56 MM HG, HR 75 /MIN, RR 18 /MIN, TEMP 96.3 F, OXYGEN SAT % 92%, SAFE IN ENV? (Y/N) YES, NA INITIALS SC 09:01, LMP: KG. 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 THELMA BHARDWAJ DEPENDENCY COUNSELOR NONE ANESTHESIA LOCAL PRE PROCEDURE NOTE THE PATIENT HAS A HISTORY OF CHRONIC LOW BACK PAIN. I EVALUATE THE PATIENT AND REVIEWED THE CHART. I WENT OVER THE RISKS, ALTERNATIVES, AND BENEFITS ASSOCIATED WITH THIS PROCEDURE. THE PATIENT WOULD LIKE TO PROCEED AND GIVE CONSENT TO PERFORMED THE PROCEDURE. THE PATIENT DENIES UNEXPLAINABLE WEIGHT LOSS, FEVER, CHILLS, OR NEW CHANGES IN URINARY OR BOWEL CONTROL. DESCRIPTION OF PROCEDURE THE PATIENT WAS BROUGHT TO THE PROCEDURE ROOM AND PLACED IN THE PRONE POSITION. THE LUMBOSACRAL AREA WAS CLEANED WITH BETADINE SOLUTION AND DRAPED ASEPTICALLY. THE PROCEDURE WAS DONE UNDER STERILE CONDITIONS. I CHECKED LATERALITY AND THE LEVEL WHERE THE PROCEDURE WAS GOING TO BE PERFORMED WITH THE PATIENT AND THE SUPPORTING STAFF AT THE MOMENT OF THE TIME OUT IN THE PROCEDURE ROOM. UNDER FLUOROSCOPIC GUIDANCE, THE TARGET POINT WAS SELECTED AT THE INTERLAMINAR LEVEL OF L3-L4. LIDOCAINE WAS USED TO NUMB THE SKIN AND THE SUBCUTANEOUS TISSUE BELOW IT. EPIDURAL TUOHY NEEDLE, 17-GAUGE, WAS ADVANCED UNDER FLUOROSCOPIC GUIDANCE AND FOLLOWING PATIENT FEEDBACK UNTIL THE EPIDURAL SPACE WAS REACHED, 7 CM DEEP INTO THE SKIN BY THE LOSS OF RESISTANCE TECHNIQUE. ISOVUE M DYE 30%, 0.25 ML, WAS INJECTED SHOWING ADEQUATE SPREAD OF THE DYE. THEN, A SOLUTION OF 3 ML OF NORMAL SALINE WITH DEPO-MEDROL 60 MG WAS INJECTED SLOWLY FOLLOWING PATIENT FEEDBACK. THERE WAS NO EVIDENCE OF BLOOD, PARESTHESIA OR CEREBROSPINAL FLUID DURING THE PROCEDURE. THE PATIENT WAS SENT TO THE RECOVERY ROOM. THE PATIENT WAS MOVING THE EXTREMITIES AND DOING WELL. THERE WAS NO COMPLICATION DURING THE PROCEDURE. FLUOROSCOPY TIME WAS 24 SECONDS. POST PROCEDURE NOTE THE PATIENT WILL BE SEEN IN A FOLLOW UP IN THE NEXT FEW WEEKS. INSTRUCTIONS WERE GIVEN, QUESTIONS WERE ANSWERED, AND THE PATIENT EXPRESSED UNDERSTANDING AND AGREES WITH THE PLAN. I, RAYO ABRAMS, DOCUMENTED THE ABOVE INFORMATION ACTING A SCRIBE FOR DR. BHARDWAJ. I HAVE REVIEWED THE ABOVE DOCUMENT, WRITTEN BY RAYO DANIBWillard AND I VERIFY THAT IT IS ACCURATE. PN WORKMANS' COMP OPINION IN YOUR OPINION, WAS THE INCIDENT THAT THE PATIENT DESCRIBED THE COMPETENT MEDICAL CAUSE OF THIS INJURY/ILLNESS? YES ARE THE PATIENT'S COMPLAINTS CONSISTENT WITH HIS/HER HISTORY OF THE INJURY/ILLNESS? YES IS THE PATIENT'S HISTORY OF THE INJURY/ILLNESS CONSISTENT WITH YOUR OBJECTIVE FINDING? YES WHAT IS THE PERCENTAGE OF TEMPORARY IMPAIRMENT? MODERATE TO MARKED = 66.7% IS THE PATIENT WORKING? NO DOCTOR ON SITE: THELMA NUNEZ MD DIAGNOSTIC IMAGING [facility] FLUORO GUIDE SPINE INJECTION (PAIN)[id number] PROCEDURE CODES 6045F RADXPS IN END [id number] PXD [id number] LUMBAR/SACRAL W/ IMAGING DISPOSITION & COMMUNICATION FOLLOW UP 2 WEEKS ELECTRONICALLY SIGNED BY THELMA BHARDWAJ MD, MD ON 11/05/2018 AT 02:49 PM EST DISCLAIMER : THIS IS A VISIT SUMMARY EXTRACTED FROM THE [facility] CHART. IT IS NOT A COPY OF THE [facility] PROGRESS NOTE. MTDD
== END ==
LOC: M PAIN 08:45
PROVIDERS: ATTEND Anesthesiology
DX: M96.1 Postlaminectomy syndrome, not elsewhere classified (principal); M51.16 Intervertebral disc disorders with radiculopathy, lumbar region; J44.9 Chronic obstructive pulmonary disease, unspecified; I50.42 Chronic combined systolic (congestive) and diastolic (congestive) heart failure; I11.0 Hypertensive heart disease with heart failure; E78.5 Hyperlipidemia, unspecified; K21.9 Gastro-esophageal reflux disease without esophagitis; F10.21 Alcohol dependence, in remission; E66.9 Obesity, unspecified; Z68.35 Body mass index [BMI] 35.0-35.9, adult; Z79.84 Long term (current) use of oral hypoglycemic drugs; Z79.891 Long term (current) use of opiate analgesic; Z79.82 Long term (current) use of aspirin; Z79.899 Other long term (current) drug therapy; Z88.6 Allergy status to analgesic agent; Z88.8 Allergy status to other drugs, medicaments and biological substances; Z91.02 Food additives allergy status; Z91.018 Allergy to other foods; Z87.891 Personal history of nicotine dependence; Z86.69 Personal history of other diseases of the nervous system and sense organs; Z96.651 Presence of right artificial knee joint
CPT/HCPCS: 62323; J1030; Q9967

== ENCOUNTER → 2018-10-30 | Outpatient (CLI) | payer OTHER ==
[~2018-10-30] MED LIST changes: -ISOVUE-M 300 61% 15ML VIAL (Q9967) As Ordered ONE; -LIDOCAINE 1% SDV INJ 30 ML VIAL As Ordered ONE; -methylPREDNISolone SUSP 40 MG/ML (DEPO-medrol) VIAL (J1030) As Ordered ONE
--- NOTE | 2018-10-31 10:28 | REP ---
Soft-tissue ultrasound right shoulder. Tree: Soft tissue mass right shoulder underneath the scapula, history of previous lipoma. Comparison chest CT study July 01, 2018. Sonographic findings: Scanning is performed over the right shoulder and back in the area of the tender prominence. The patient reports that this is most prominent with upright or sitting position and thus scanning was performed in this position. There is no evidence of cyst or clearly definable soft-tissue mass by ultrasound. Questionable isoechoic subcutaneous and intramuscular areas could relate to lipoma. The findings are poorly seen by ultrasound. Review of the CT study from July 01, 2018 shows an area of postoperative fibrosis in the posterior chest wall on the left. There is no definable lipoma or soft tissue mass in this area on the right visible in retrospect. Impression: Equivocal sonographic findings poorly defined. No cyst is seen. No definite mass. Consider repeat CT scanning if further evaluation is felt to be clinically warranted. Electronically Signed by Lele Mcrae MD 10/31/2018 08:30 P
== END ==
LOC: M RAD 10:13
PROVIDERS: ATTEND Student in an Organized Health Care Education/Training Program
DX: R22.31 Localized swelling, mass and lump, right upper limb (principal)

== ENCOUNTER → 2018-11-06 | Outpatient (CLI) | payer OTHER ==
[~2018-11-06] MED LIST changes: +FURO40TA2 PO; +TIZA2CAP PO
--- NOTE | 2018-11-23 01:14 | ECWPNPC ---
PATIENT NAME: CAMILO ARMSTRONG : 1960 GENDER: MALE VISIT DATE: 11/06/2018 DISCHARGE DATE: 11/06/18 1721 VISIT LOCKED DATE TIME: PHYSICIAN: THELMA BHARDWAJ MD RESOURCE: THELMA BHARDWAJ MD REASON FOR APPOINTMENT 1. (R) SIDED RADICULOPATHY *NON COMP* HISTORY OF PRESENT ILLNESS HISTORY OF PRESENT ILLNESS: PAIN THE PATIENT DESCRIBES THE PAIN... 58 YEAR OLD MALE PATIENT WITH A HISTORY OF CHRONIC HIP PAIN. THE PATIENT DESCRIBES THE PAIN ACHING, BURNING, SORE, STABBING, AND CONTINUOUS WITH A PAIN SCORE OF 7-10/10 DEPENDING ON PHYSICAL ACTIVITY. THE PATIENT SAYS HE HAS HAD THIS PAIN FOR SEVERAL YEARS AND IT IS LOCATED IN BOTH HIPS. THE PATIENT SAYS HE HAS DIFFICULTY DOING DAILY ACTIVITIES SUCH MOVING AROUND, CLEANING, AND WORKING AROUND HIS HOUSE. THE PATIENT SAYS THAT MEDICATION HAS NOT BEEN HELPING RELIEVE HIS PAIN. PATIENT DENIES UNEXPLAINABLE WEIGHT LOSS, FEVER, CHILLS, NEW CHANGES ON HIS URINARY OR BOWEL CONTROL. FALL RISK SCREENING: SCREENING :NO FALLS IN THE PAST YEAR CURRENT MEDICATIONS TAKING ZYRTEC 10 MG TABLET 1 TABLET ORALLY ONCE A DAY TAKING METFORMIN HCL 500 MG TABLET DIRECTED ORALLY 500 MG IN AM AND 1000MG AT DINNER TAKING OMEPRAZOLE 40 MG CAPSULE DELAYED RELEASE 1 CAPSULE ORALLY ONCE A DAY TAKING PERCOCET 5-325 MG TABLET 1 TABLET ORALLY Q 4 HRS PRN PAIN MDD=5 TAKING TIZANIDINE HCL 2 MG TABLET 1 TABLET NEEDED ORALLY FOR SPASMS AND PAIN EVERY 6 HOURS NEEDED MDD3 TAKING LISINOPRIL 2.5MG TABLET 1 TAB ORALLY AT BEDTIME TAKING ASPIRIN 81 MG TABLET DELAYED RELEASE 1 TAB ORALLY DAILY TAKING LIPITOR 80 MG TABLET 1 TABLET ORALLY ONCE A DAY AT BEDTIME TAKING NASACORT AQ 55 MCG/ACT AEROSOL 1 PUFF IN EACH NOSTRIL NASALLY ONCE A DAY TAKING ADVAIR DISKUS 250-50 MCG/DOSE MISCELLANEOUS 1 INHALATION. ALWAYS RINSE YOUR MOUTH OUT AFTER USE DAILY TAKING VENTOLIN HFA 108 (90 BASE) MCG/ACT AEROSOL SOLUTION 2 PUFFS INHALATION EVERY 4-6 HOURS NEEDED TAKING NITROSTAT 0.4 MG TABLET SUBLINGUAL 1 TAB SUBLINGUAL TAB1 TAB FOR CHEST PAIN IF NO RELIEF IN 5 MINUTES TAKE 2ND NITRO IF NO RELIEF AFTER 5 MINUTES TAKE 3RD NITRO ER TAKING MIRALAX 17 GM POWDER 17GM ORALLY DAILY NEEDED TAKING MAGNESIUM 64 MG CAPSULE 1 TAB ORALLY BID TAKING MULTIVITAMINS 1 TABLET DIRECTED ORALLY DAILY TAKING OXYBUTYNIN CHLORIDE ER 5 MG TABLET EXTENDED RELEASE 24 HOUR TAKE ONE TABLET BY MOUTH EVERY DAY DIRECTED TAKING ZONISAMIDE 50 MG CAPSULE 1 CAP ORALLY ONCE DAILY TAKING GABAPENTIN 400 MG CAPSULE 1 CAPSULE ORALLY FOUR TIMES DAILY MDD4 TAKING ALDACTONE 25 MG TABLET 1/2 TAB ORALLY DAILY TAKING LASIX 40 MG TABLET 1 TAB ORALLY DAILY NEEDED TAKING ATENOLOL 50 MG TABLET 1 TABLET ORALLY ONCE A DAY TAKING LEVOTHYROXINE SODIUM 25 MCG TABLET TAKE ONE TABLET BY MOUTH EVERY MORNING ON AN EMPTY STOMACH TAKING AMIODARONE HCL 200 MG TABLET 1 TABLET ORALLY BID TAKING POTASSIUM CHLORIDE ER 20 MEQ TABLET EXTENDED RELEASE 1 TABLET WITH FOOD ORALLY BID TAKING DETROL 2 MG TABLET 1 TABLET ORALLY TWICE A DAY TAKING MECLIZINE HCL 25 MG TABLET 1 TABLET ORALLY 1-2 TIMES DAILY NEEDED TAKING TRAMADOL HCL ER 100 MG TABLET EXTENDED RELEASE 24 HOUR 1 TABLET ORALLY ONCE A DAY MDD=1 TAKING FLOMAX 0.4 MG CAPSULE EXTENDED RELEASE 24 HOUR 2 CAPSULE 30 MINUTES AFTER THE SAME MEAL EACH DAY DAILY TAKING AVODART 0.5 MG CAPSULE 1 CAPSULE ORALLY ONCE A DAY TAKING VITAMIN D-3 5000 UNIT TABLET 1 TABLET ORALLY ONCE A DAY TAKING COLACE 100 MG CAPSULE 1 CAPSULE ORALLY TWICE DAILY TAKING DRISDOL 46987 UNIT CAPSULE TAKE 1 CAPSULE BY MOUTH ONCE EVERYOTHER WEEK NOT-TAKING VITAMIN D3 2000 UNITS TABLET 1 TAB ORALLY ONCE A DAY NOT-TAKING VENLAFAXINE HCL ER 37.5 MG CAPSULE EXTENDED RELEASE 24 HOUR 1 CAP ORALLY ONCE DAILY NOT-TAKING ADVAIR DISKUS 250-50 MCG/DOSE AEROSOL POWDER BREATH ACTIVATED INHALE ONE PUFF BY MOUTH EVERY DAY RISNE MOUTH AFTER USE NOT-TAKING SKELAXIN 800 MG TABLET 1 TABLET ORALLY FOUR TIMES DAY WORKMEN COMP NOT-TAKING TAMSULOSIN HCL 0.4 MG CAPSULE 1 CAPSULE 30 MINUTES AFTER THE SAME MEAL EACH DAY ORALLY ONCE A DAY NOT-TAKING XARELTO 10 MG TABLET 1 TABLET WITH FOOD ORALLY ONCE A DAY NOT-TAKING COREG 12.5MG TABLET 1 TAB ORALLY TWICE DAILY NOT-TAKING CYMBALTA 20 MG CAPSULE DELAYED RELEASE PARTICLES 1 CAPSULE ORALLY ONCE A DAY MEDICATION LIST REVIEWED AND RECONCILED WITH THE PATIENT PAST MEDICAL HISTORY COPD- SPIROMETRY- 02/05/14- DECLINES AT THIS TIME CHF (SYSTOLIC AND DIASTOLIC)- CANNY HYPERLIPIDEMIA HYPERTENSION GERD CHRONIC LOW BACK PAIN- W COMP- DR BOJORQUEZ- CHRONIC PAIN MEDS PER [facility] PAIN MANAGEMENT. CHRONIC RT KNEE PAIN VERTIGO (SINCE 1990) OBESITY H/O HEAVY ALCOHOL USE (IN REMISSION) ASCVD 10-YEAR RISK IS 3.6% IN HTE COLONOSCOPY 2009 BILATERAL HYDROCELE EPIDIDYMITIS CYST RIGHT HEPTITIS B (FROM BLOOD TRANSFUSION) PACEMAKER DEFIBRILLATOR 04/2018 HEART MONITOR -WEARING FOR 1 MONTH - V-TACH V-TAC HOSP 06/21/2018 ALLERGIES RED DYE: RASH: ALLERGY TOMATO: NAUSEA/VOMITING: ALLERGY FINASTERIDE: FLARED CHF: CONTRAINDICATION NSAIDS: CONGESTIVE FAILURE: CONTRAINDICATION VOLTAREN: GEL/ SPASMS/PAIN: ALLERGY LYRICA: CHF: CONTRAINDICATION SURGICAL HISTORY NO PERSONAL OR FHX SEVERE REACTION TO ANESTHESIA R HUMERUS FIXATION 1972 R MEDIAL MENISCECTOMY 1980 DRAINAGE OF R NECK ? PERITONSILAR ABSCESS 1996 S/P AICD PLACMENT 2007 L4-S1 SPINAL DECOMPRESSION WITH INSTRUMENTED POSTERIOR AND INTERBODY FUSION. DUROTOMY REPAIR. (TIMOTHY @ [facility]) 03/2011 EGD-REINDL NML 03/13/10 COLONOSCOPY- REINDL. DIVERTICULOSIS- REPEAT 5-10 YEARS 03/13/10 RIGHT KNEE SURGERY BY ORTHO 02/05 NEW ICD 12/29/16 MASS REMOVAL 02/2018 REMOVAL TUMOR LEFT THORACIC 02/27/18 RIGHT KNEE REPLACEMENT 06/2018 FAMILY HISTORY FATHER: ALIVE, BYPASS. KIDNEY CANCER HAD KIDNEY REMOVED. METASTATIC CANCER TO LUNGS., DIAGNOSED WITH HYPERTENSION, HEART DISEASE, CANCER MOTHER: ALIVE, DIAGNOSED WITH DIABETES, HYPERTENSION, HEART DISEASE, OTHER SIBLINGS: 2 BROTHERS HAD BYPASS. SISTER HAS HEART ISSUES SINCE . 1 BROTHER HAD HYDROCELE. 2 BROTHER(S) , 5 SISTER(S) . 1 SON(S) , 1 DAUGHTER(S) - HEALTHY. FATHER-MEDISTATIC LUNG CAMOTHER--HYPOTHYROIDOLDER BROTHER-STROKESON- ASTHMA. SOCIAL HISTORY GENERAL: TOBACCO USE ARE YOU A:FORMER SMOKER QUIT 2007 SMOKED FOR 33 YRS. 1 PACK PER DAY. ALCOHOL SCREENING DID YOU HAVE A DRINK CONTAINING ALCOHOL IN THE PAST YEAR?NO POINTS0 INTERPRETATIONNEGATIVE RECREATIONAL DRUG USE DRUG USE?NO CAFFEINE CAFFEINE USE?NO SEXUAL HX HAD SEX IN THE LAST 12 MONTHS (VAGINAL, ORAL, OR ANAL)?NO HAVE YOU EVER HAD AN STD?NO ORIENTAL ORTHODOX [id number] JEWISH LANGUAGE LANGUAGES SPOKEN:IRISH EDUCATION LEVEL OF EDUCATION:COLLEGE LEARNING BARRIERS / SPECIAL NEEDS CHANGE FROM LAST VISIT?NO BARRIERS TO LEARNING?NO HEARING IMPAIRED?YES BILATERAL CONFEDERATED COOS WORSE ON LEFT VISION IMPAIRED?YES COGNITIVELY IMPAIRED?NO :CORRECTIVE LENSES READINESS TO LEARN?YES LEARNING PREFERENCES?NO LEARNING CAPABILITIES PRESENT?YES EMOTIONAL BARRIERS?NO SPECIAL DEVICES?NO 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 MARITAL STATUS: .. PAIN CLINIC PFS, CLERGY, PUBLIC HEALTH REFERRALS PFS REFERRAL NEEDED?NO CLERGY REFERRAL NEEDED?NO PUBLIC HEALTH REFERRAL NEEDED?NO WAS THE PROVIDER NOTIFIED OF ANY PERTINENT INFO?YES HAS THE PATIENT BEEN EDUCATED REGARDING HIS/HER PLAN OF CARE?YES HAS THE PATIENT BEEN EDUCATED REGARDING PAIN, THE RISK FOR PAIN, THE IMPORTANCE OF EFFECTIVE PAIN MANAGEMENT, AND THE PAIN ASSESSMENT PROCESS?YES ADVANCE DIRECTIVE ADVANCE DIRECTIVE DISCUSSED WITH PATIENT:YES PT. HAS HCP CHILDREN 1. MARQUITA ARMSTRONG 2. [place] COPY ON FILE WITH HOSPITAL 05/09/18 REVIEWED WITH PT. 05/23/18 REVIEWED WITH PT LASREVIEWED WITH PATIENT 07/11/18 1346 JSREVIEWED WITH PATIENT 07/27/18 1108 JSREVIEWED WITH PATIENT 08/22/18 0911 JSREVIEWED WITH PATIENT 10/03/18 1335 BV. HOSPITALIZATION/MAJOR DIAGNOSTIC PROCEDURE CHF 2008 DOG BITE 01/2015 RELATED TO SURGERIES [facility] VTAC 06/21/18 SURGERY RELATED 06/2018 REVIEW OF SYSTEMS REVIEWED BY: PROVIDER: THELMA BHARDWAJ MD . CONSTITUTIONAL: ANY CHANGE IN YOUR MEDICAL CONDITION? NO . CHILLS NO . FEVER NO . INFECTION: DO YOU HAVE NEW INFECTIONS? NO . DO YOU HAVE HISTORY OF MRSA? NO . MUSCULOSKELETAL: ANY NEW PATTERNS OF PAIN OR NUMBNESS? NO . GASTROENTEROLOGY: ANY NEW CHANGE IN BOWEL CONTROL? NO . GENITOURINARY: ANY NEW CHANGE IN BLADDER CONTROL? NO . IS THERE A CHANCE YOU COULD BE ? NO . HEMATOLOGY/LYMPH: DO YOU TAKE ANY BLOOD THINNERS? (FOR EXAMPLE- COUMADIN, PLAVIX, AGGRENOX, PLATEL, PRADAXA, OR XARELTO) NO . WHEN WAS YOUR LAST DOSE? DATE: TIME: . NEUROLOGY: HAVE YOU FALLEN IN THE PAST 12 MONTHS? NO . ANY NEW EXTREMITY NUMBNESS OR WEAKNESS? NO . CARDIOLOGY: DO YOU HAVE A PACEMAKER OR DEFIBRILLATOR? AICD, TRIGGERED IN 05/2018 . RESPIRATORY: HAVE YOU BEEN SICK IN THE PAST WEEK? NO . FEVER NO . FLU LIKE SYMPTOMS? NO . COUGH NO . INTEGUMENTARY: DO YOU HAVE ANY RASHES OR OPEN SORES? NO . ALLERGIC/IMMUNO: ARE YOU ALLERGIC TO IV DYE? NO . ANY NEW ALLERGIES? NO . PSYCHIATRIC: DO YOU HAVE THOUGHTS OF HURTING YOURSELF OR SOMEONE ELSE? NO . ARE YOU ABUSED, NEGLECTED, OR IN AN UNSAFE ENVIRONMENT? NO . ENDOCRINOLOGY: ARE YOU DIABETIC? YES, MANAGED WITH DIET AND METFORMIN . OTHER: DO YOU NEED ANY PRESCRIPTIONS? NO . IF YES, PLEASE LIST: ____ . ANY NEW PROBLEMS WITH YOUR MEDICATIONS? NO . WHEN DID YOU LAST EAT? ____ . WHEN DID YOU LAST DRINK? ____ . WHAT DID YOU LAST DRINK? ____ . NAME OF PERSON DRIVING YOU HOME? ____ . DO YOU HAVE ANY OTHER QUESTIONS OR CONCERNS NO . VITAL SIGNS WT 259 LBS, HT 72 IN, BMI 35.12 INDEX, BP 143/67 MM HG, HR 71 /MIN, RR 20 /MIN, TEMP 96.6 F, OXYGEN SAT % 95%, SAFE IN ENV? (Y/N) Y, NA INITIALS SC 14:51, REVIEWED BY: KEESHA. EXAMINATION GENERAL EXAMINATION: PATIENT IS ALERT O X 3 AND COOPERATIVE. TENDERNESS OVER THE RIGHT AND LEFT GREATER TROCHANTER OF THE FEMUR. 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 ARMSTRONG'S PAIN MANAGEMENT CASE. DUE TO THE BURSITIS OVER THE RIGHT AND LEFT HIPS, I WOULD LIKE TO MOVE FORWARD WITH A RIGHT AND LEFT GREATER TROCHANTER OF THE FEMUR INJECTION. WE DISCUSSED THE BENEFITS, RISKS, AND ALTERNATIVES OF THE INJECTIONS AND THE PATIENT WOULD LIKE TO PROCEED. THE PATIENT WILL HAVE THE PROCEDURES ON SEPARATE DAYS. THE PATIENT WILL FOLLOW UP IN 6 WEEKS. INSTRUCTIONS WERE GIVEN, QUESTIONS WERE ANSWERED, PATIENT REPORTS UNDERSTANDING AND AGREES WITH THE PLAN. I, RAYO ABRAMS, DOCUMENTED THE ABOVE INFORMATION ACTING A SCRIBE FOR DR. BHARDWAJ. I HAVE REVIEWED THE ABOVE DOCUMENT, WRITTEN BY RAYO DANIBWillard AND I VERIFY THAT IT IS ACCURATE. PROCEDURE CODES FA211 ESTABILISHED PATIENT [facility] CHARGE [id number] CURRENT MEDS W/DOSAGES DOCUMENTED K9331 PAIN ASSESS POS TOOL F/U PLAN DOC DISPOSITION & COMMUNICATION FOLLOW UP 6 WEEKS ELECTRONICALLY SIGNED BY THELMA BHARDWAJ MD, MD ON 11/22/2018 AT 07:01 AM EST DISCLAIMER : THIS IS A VISIT SUMMARY EXTRACTED FROM THE [employer] CHART. IT IS NOT A COPY OF THE [employer] PROGRESS NOTE. JULIETA
== END ==
LOC: M PAIN 14:45
PROVIDERS: ATTEND Anesthesiology
DX: M70.61 Trochanteric bursitis, right hip (principal); M70.62 Trochanteric bursitis, left hip; G89.29 Other chronic pain; J44.9 Chronic obstructive pulmonary disease, unspecified; I50.42 Chronic combined systolic (congestive) and diastolic (congestive) heart failure; E78.5 Hyperlipidemia, unspecified; I11.0 Hypertensive heart disease with heart failure; K21.9 Gastro-esophageal reflux disease without esophagitis; F10.21 Alcohol dependence, in remission; Z79.84 Long term (current) use of oral hypoglycemic drugs; Z79.891 Long term (current) use of opiate analgesic; Z79.82 Long term (current) use of aspirin; Z88.6 Allergy status to analgesic agent; Z88.8 Allergy status to other drugs, medicaments and biological substances; Z91.02 Food additives allergy status; Z91.018 Allergy to other foods; Z95.0 Presence of cardiac pacemaker; Z87.39 Personal history of other diseases of the musculoskeletal system and connective tissue; Z87.891 Personal history of nicotine dependence; Z96.651 Presence of right artificial knee joint

== ENCOUNTER → 2018-11-17 | Outpatient (CLI) | payer OTHER ==
--- NOTE | 2018-11-17 14:48 | REP ---
Chest two views HISTORY: benign lipoma Comparison: 06/07/2018 The lungs are clear. The heart is normal in size. The pulmonary vasculature is normal in appearance. The bony structure is intact. A cardiac pacemaker is present. IMPRESSION: No acute disease. Electronically Signed by Maurizio Caceres MD 11/17/2018 02:40 P
== END ==
LOC: M SMT 14:14
PROVIDERS: ATTEND Thoracic Surgery (Cardiothoracic Vascular Surgery)
DX: D17.1 Benign lipomatous neoplasm of skin and subcutaneous tissue of trunk (principal)

== ENCOUNTER → 2018-11-23 | Outpatient (CLI) | payer OTHER ==
[~2018-11-23] MED LIST changes: +BUPIVACAINE HCL 0.25% 10 ML VIAL As Ordered ONE; +BUPIVACAINE HCL 0.25% 30 ML VIAL As Ordered ONE; +PERCOCET 5MG/325MG TAB As Ordered ONE; +TRIAMCINOLONE ACETONIDE SUSP 40 MG/ML VIAL (J3301) As Ordered ONE
--- NOTE | 2018-12-02 23:20 | ECWPNPC ---
PATIENT NAME: CAMILO ARMSTRONG : 1960 GENDER: MALE VISIT DATE: 11/23/2018 DISCHARGE DATE: 11/23/18 1346 VISIT LOCKED DATE TIME: PHYSICIAN: THELMA BHARDWAJ MD RESOURCE: THELMA BHARDWAJ MD REASON FOR APPOINTMENT 1. NC/WC THORACIC TPI HISTORY OF PRESENT ILLNESS HISTORY OF PRESENT ILLNESS: PAIN THE PATIENT DESCRIBES THE PAIN... FALL RISK SCREENING: SCREENING : NO FALLS IN THE PAST YEAR. CURRENT MEDICATIONS TAKING ZYRTEC 10 MG TABLET 1 TABLET ORALLY ONCE A DAY, NOTES: 11/22 1999 TAKING METFORMIN HCL 500 MG TABLET DIRECTED ORALLY 500 MG IN AM AND 1000MG AT DINNER, NOTES: 11/22 1999 TAKING OMEPRAZOLE 40 MG CAPSULE DELAYED RELEASE 1 CAPSULE ORALLY ONCE A DAY, NOTES: 11/22 1999 TAKING LISINOPRIL 2.5MG TABLET 1 TAB ORALLY AT BEDTIME, NOTES: 11/22 1999 TAKING ASPIRIN 81 MG TABLET DELAYED RELEASE 1 TAB ORALLY DAILY, NOTES: 11/19/18 TAKING LIPITOR 80 MG TABLET 1 TABLET ORALLY ONCE A DAY AT BEDTIME, NOTES: 11/22/181999 TAKING NASACORT AQ 55 MCG/ACT AEROSOL 1 PUFF IN EACH NOSTRIL NASALLY ONCE A DAY, NOTES: 11/22/18899 TAKING ADVAIR DISKUS 250-50 MCG/DOSE MISCELLANEOUS 1 INHALATION. ALWAYS RINSE YOUR MOUTH OUT AFTER USE DAILY, NOTES: 11/23/18899 TAKING VENTOLIN HFA 108 (90 BASE) MCG/ACT AEROSOL SOLUTION 2 PUFFS INHALATION EVERY 4-6 HOURS NEEDED, NOTES: > 6 MONTHS TAKING NITROSTAT 0.4 MG TABLET SUBLINGUAL 1 TAB SUBLINGUAL TAB1 TAB FOR CHEST PAIN IF NO RELIEF IN 5 MINUTES TAKE 2ND NITRO IF NO RELIEF AFTER 5 MINUTES TAKE 3RD NITRO ER, NOTES: 06/2018 TAKING MIRALAX 17 GM POWDER 17GM ORALLY DAILY NEEDED, NOTES: > 1 WEEK TAKING MAGNESIUM 64 MG CAPSULE 1 TAB ORALLY BID, NOTES: 11/23/18899 TAKING MULTIVITAMINS 1 TABLET DIRECTED ORALLY DAILY, NOTES: 11/23/18899 TAKING ZONISAMIDE 50 MG CAPSULE 1 CAP ORALLY ONCE DAILY, NOTES: 11/22/181999 TAKING GABAPENTIN 400 MG CAPSULE 1 CAPSULE ORALLY FOUR TIMES DAILY MDD4, NOTES: 11/23/18899 TAKING ALDACTONE 25 MG TABLET 1/2 TAB ORALLY DAILY, NOTES: 11/12/181999 TAKING LASIX 40 MG TABLET 1 TAB ORALLY DAILY NEEDED, NOTES: 11/22/18899 TAKING ATENOLOL 50 MG TABLET 1 TABLET ORALLY ONCE A DAY, NOTES: 11/23/18899 TAKING AMIODARONE HCL 200 MG TABLET 1 TABLET ORALLY BID, NOTES: 11/23/18899 TAKING POTASSIUM CHLORIDE ER 20 MEQ TABLET EXTENDED RELEASE 1 TABLET WITH FOOD ORALLY BID, NOTES: 11/23/18899 TAKING DETROL 2 MG TABLET 1 TABLET ORALLY TWICE A DAY, NOTES: 11/23/18899 TAKING FLOMAX 0.4 MG CAPSULE EXTENDED RELEASE 24 HOUR 2 CAPSULE 30 MINUTES AFTER THE SAME MEAL EACH DAY DAILY, NOTES: 11/22/181999 TAKING AVODART 0.5 MG CAPSULE 1 CAPSULE ORALLY ONCE A DAY, NOTES: 11/22/181999 TAKING VITAMIN D-3 5000 UNIT TABLET 1 TABLET ORALLY ONCE A DAY, NOTES: 11/22/181999 TAKING COLACE 100 MG CAPSULE 1 CAPSULE ORALLY TWICE DAILY, NOTES: 11/23/18899 TAKING DRISDOL 87901 UNIT CAPSULE TAKE 1 CAPSULE BY MOUTH ONCE EVERYOTHER WEEK , NOTES: 11/11/18 TAKING MECLIZINE HCL 25 MG TABLET 1 TABLET ORALLY 1-2 TIMES DAILY NEEDED, NOTES: 11/23/18799 TAKING OXYBUTYNIN CHLORIDE ER 5 MG TABLET EXTENDED RELEASE 24 HOUR TAKE ONE TABLET BY MOUTH EVERY DAY DIRECTED , NOTES: 11/23/18899 TAKING LEVOTHYROXINE SODIUM 25 MCG TABLET TAKE ONE TABLET BY MOUTH EVERY MORNING ON AN EMPTY STOMACH , NOTES: 11/23/18899 TAKING PERCOCET 5-325 MG TABLET 1 TABLET ORALLY Q 4 HRS PRN PAIN MDD=5, NOTES: 11/23/18899 TAKING TIZANIDINE HCL 2 MG TABLET 1 TABLET NEEDED ORALLY FOR SPASMS AND PAIN EVERY 6 HOURS NEEDED MDD3, NOTES: 11/23/18899 TAKING TRAMADOL HCL ER 100 MG TABLET EXTENDED RELEASE 24 HOUR 1 TABLET ORALLY ONCE A DAY MDD=1, NOTES: 11/23/18899 TAKING ADVAIR DISKUS 250-50 MCG/DOSE AEROSOL POWDER BREATH ACTIVATED INHALE ONE PUFF BY MOUTH EVERY DAY RISNE MOUTH AFTER USE , NOTES: 11/23/18899 NOT-TAKING VITAMIN D3 2000 UNITS TABLET 1 TAB ORALLY ONCE A DAY NOT-TAKING VENLAFAXINE HCL ER 37.5 MG CAPSULE EXTENDED RELEASE 24 HOUR 1 CAP ORALLY ONCE DAILY NOT-TAKING SKELAXIN 800 MG TABLET 1 TABLET ORALLY FOUR TIMES DAY WORKMEN COMP NOT-TAKING TAMSULOSIN HCL 0.4 MG CAPSULE 1 CAPSULE 30 MINUTES AFTER THE SAME MEAL EACH DAY ORALLY ONCE A DAY NOT-TAKING XARELTO 10 MG TABLET 1 TABLET WITH FOOD ORALLY ONCE A DAY NOT-TAKING COREG 12.5MG TABLET 1 TAB ORALLY TWICE DAILY NOT-TAKING CYMBALTA 20 MG CAPSULE DELAYED RELEASE PARTICLES 1 CAPSULE ORALLY ONCE A DAY MEDICATION LIST REVIEWED AND RECONCILED WITH THE PATIENT PAST MEDICAL HISTORY COPD- SPIROMETRY- 02/05/14- DECLINES AT THIS TIME CHF (SYSTOLIC AND DIASTOLIC)- CANNY HYPERLIPIDEMIA HYPERTENSION GERD CHRONIC LOW BACK PAIN- W COMP- DR BOJORQUEZ- CHRONIC PAIN MEDS PER [facility] PAIN MANA[facility]. CHRONIC RT KNEE PAIN VERTIGO (SINCE 1990) OBESITY H/O HEAVY ALCOHOL USE (IN REMISSION) ASCVD 10-YEAR RISK IS 3.6% IN HTE COLONOSCOPY 2009 BILATERAL HYDROCELE EPIDIDYMITIS CYST RIGHT HEPTITIS B (FROM BLOOD TRANSFUSION) PACEMAKER DEFIBRILLATOR 04/2018 HEART MONITOR -WEARING FOR 1 MONTH - V-TACH V-TAC HOSP 06/21/2018 ALLERGIES RED DYE: RASH: ALLERGY TOMATO: NAUSEA/VOMITING: ALLERGY FINASTERIDE: FLARED CHF: CONTRAINDICATION NSAIDS: CONGESTIVE FAILURE: CONTRAINDICATION VOLTAREN: GEL/ SPASMS/PAIN: ALLERGY LYRICA: CHF: CONTRAINDICATION SURGICAL HISTORY NO PERSONAL OR FHX SEVERE REACTION TO ANESTHESIA R HUMERUS FIXATION 1972 R MEDIAL MENISCECTOMY 1981 DRAINAGE OF R NECK ? PERITONSILAR ABSCESS 1996 S/P AICD PLACMENT 2007 L4-S1 SPINAL DECOMPRESSION WITH INSTRUMENTED POSTERIOR AND INTERBODY FUSION. DUROTOMY REPAIR. ([place] @ [facility]) 03/2011 EGD-REINDL NML 03/13/10 COLONOSCOPY- REINDL. DIVERTICULOSIS- REPEAT 5-10 YEARS 03/13/10 RIGHT KNEE SURGERY BY ORTHO 02/05 NEW ICD 12/29/16 MASS REMOVAL 02/2018 REMOVAL TUMOR LEFT THORACIC 02/27/18 RIGHT KNEE REPLACEMENT 06/2018 FAMILY HISTORY FATHER: ALIVE, BYPASS. KIDNEY CANCER HAD KIDNEY REMOVED. METASTATIC CANCER TO LUNGS., DIAGNOSED WITH HYPERTENSION, HEART DISEASE, CANCER MOTHER: ALIVE, DIAGNOSED WITH DIABETES, HYPERTENSION, HEART DISEASE, OTHER SIBLINGS: 2 BROTHERS HAD BYPASS. SISTER HAS HEART ISSUES SINCE . 1 BROTHER HAD HYDROCELE. 2 BROTHER(S) , 5 SISTER(S) . 1 SON(S) , 1 DAUGHTER(S) - HEALTHY. FATHER-MEDISTATIC LUNG CAMOTHER--HYPOTHYROIDOLDER BROTHER-STROKESON- ASTHMA. SOCIAL HISTORY GENERAL: TOBACCO USE ARE YOU A:FORMER SMOKER QUIT 2007 SMOKED FOR 33 YRS. 1 PACK PER DAY. ALCOHOL SCREENING DID YOU HAVE A DRINK CONTAINING ALCOHOL IN THE PAST YEAR?NO POINTS0 INTERPRETATIONNEGATIVE RECREATIONAL DRUG USE DRUG USE?NO CAFFEINE CAFFEINE USE?NO SEXUAL HX HAD SEX IN THE LAST 12 MONTHS (VAGINAL, ORAL, OR ANAL)?NO HAVE YOU EVER HAD AN STD?NO CHRISTIANITY [id number] ORTHODOX LANGUAGE LANGUAGES SPOKEN:CROATIAN EDUCATION LEVEL OF EDUCATION:COLLEGE LEARNING BARRIERS / SPECIAL NEEDS CHANGE FROM LAST VISIT?NO BARRIERS TO LEARNING?NO HEARING IMPAIRED?YES BILATERAL [place] WORSE ON LEFT VISION IMPAIRED?YES COGNITIVELY IMPAIRED?NO :CORRECTIVE LENSES READINESS TO LEARN?YES LEARNING PREFERENCES?NO LEARNING CAPABILITIES PRESENT?YES EMOTIONAL BARRIERS?NO SPECIAL DEVICES?NO ARTIST'S MODEL NEEDED?NO DOMESTIC VIOLENCE DO YOU FEEL SAFE IN YOUR ENVIRONMENT?YES EXERCISE: WALKS. MARITAL STATUS: .. PAIN CLINIC PFS, CLERGY, PUBLIC HEALTH REFERRALS PFS REFERRAL NEEDED?NO CLERGY REFERRAL NEEDED?NO PUBLIC HEALTH REFERRAL NEEDED?NO WAS THE PROVIDER NOTIFIED OF ANY PERTINENT INFO?YES HAS THE PATIENT BEEN EDUCATED REGARDING HIS/HER PLAN OF CARE?YES HAS THE PATIENT BEEN EDUCATED REGARDING PAIN, THE RISK FOR PAIN, THE IMPORTANCE OF EFFECTIVE PAIN MANAGEMENT, AND THE PAIN ASSESSMENT PROCESS?YES ADVANCE DIRECTIVE ADVANCE DIRECTIVE DISCUSSED WITH PATIENT:YES PT. HAS HCP CHILDREN 1. MARQUITA PATTI 2. KEVYN ROMAN STATES COPY ON FILE WITH HOSPITAL 05/09/18 REVIEWED WITH PT. 05/23/18 REVIEWED WITH PT LASREVIEWED WITH PATIENT 07/11/18 1346 JSREVIEWED WITH PATIENT 07/27/18 1108 JSREVIEWED WITH PATIENT 08/22/18 0911 JSREVIEWED WITH PATIENT 10/03/18 1335 BVREVIEWED WITH PATIENT 11/23/18 1215 LAS. HOSPITALIZATION/MAJOR DIAGNOSTIC PROCEDURE CHF 2008 DOG BITE 01/2015 [facility] SURGERY RELATED 06/2018 REVIEW OF SYSTEMS REVIEWED BY: PROVIDER: . CONSTITUTIONAL: ANY CHANGE IN YOUR MEDICAL CONDITION? NO . CHILLS NO . FEVER NO . INFECTION: DO YOU HAVE NEW INFECTIONS? NO . DO YOU HAVE HISTORY OF MRSA? NO . MUSCULOSKELETAL: ANY NEW PATTERNS OF PAIN OR NUMBNESS? NO . GASTROENTEROLOGY: ANY NEW CHANGE IN BOWEL CONTROL? NO . GENITOURINARY: ANY NEW CHANGE IN BLADDER CONTROL? YES PT REPORTS SEVERAL RECENT EPISODES OF NOCTURNAL INCONTINENCE, TO SEE UROLOGIST ABOUT THIS . IS THERE A CHANCE YOU COULD BE ? NO . HEMATOLOGY/LYMPH: DO YOU TAKE ANY BLOOD THINNERS? (FOR EXAMPLE- COUMADIN, PLAVIX, AGGRENOX, PLATEL, PRADAXA, OR XARELTO) NO . WHEN WAS YOUR LAST DOSE? DATE: TIME: . NEUROLOGY: HAVE YOU FALLEN IN THE PAST 12 MONTHS? NO . ANY NEW EXTREMITY NUMBNESS OR WEAKNESS? PT REPORTS A LITTLE NUMBNESS AND INCREASED PAIN IN THORACIC AREA EXTENDING TO AXILLA AND DOWN ARMS. HE REPORTS THAT SURGEON FEELS THIS IS DUE TO A THORACIC LIPOMA THAT IS GOING TO BE REMOVED. . CARDIOLOGY: DO YOU HAVE A PACEMAKER OR DEFIBRILLATOR? YES . RESPIRATORY: HAVE YOU BEEN SICK IN THE PAST WEEK? NO . FEVER NO . FLU LIKE SYMPTOMS? NO . COUGH NO . INTEGUMENTARY: DO YOU HAVE ANY RASHES OR OPEN SORES? NO . ALLERGIC/IMMUNO: ARE YOU ALLERGIC TO IV DYE? NO . ANY NEW ALLERGIES? NO . PSYCHIATRIC: DO YOU HAVE THOUGHTS OF HURTING YOURSELF OR SOMEONE ELSE? NO . ARE YOU ABUSED, NEGLECTED, OR IN AN UNSAFE ENVIRONMENT? NO . ENDOCRINOLOGY: ARE YOU DIABETIC? NO . OTHER: DO YOU NEED ANY PRESCRIPTIONS? NO . IF YES, PLEASE LIST: ____ . ANY NEW PROBLEMS WITH YOUR MEDICATIONS? NO . WHEN DID YOU LAST EAT? ____11/22/181999 . WHEN DID YOU LAST DRINK? ____11/23/18 0930 . WHAT DID YOU LAST DRINK? ____WATER . NAME OF PERSON DRIVING YOU HOME? ____KEVYN ROMAN . DO YOU HAVE ANY OTHER QUESTIONS OR CONCERNS NO . VITAL SIGNS WT 257 LBS, HT 72 IN, BMI 34.85 INDEX, BP 132/68 MM HG, HR 66 /MIN, RR 18 /MIN, TEMP 97.1 F, OXYGEN SAT % 95%, SAFE IN ENV? (Y/N) YES, NA INITIALS SC 11:58, REVIEWED BY: CAITIE. ASSESSMENTS MYALGIA, OTHER SITE - M79.18 (PRIMARY) PROCEDURES PN TRIGGER POINT INJECTION NO STEROIDS DATE OF PROCEDURE 11/23/2018 : PRE PROCEDURE DIAGNOSIS 1. MYALGIA 2. PAIN AT BILATERAL THORACIC AREA POST PROCEDURE DIAGNOSIS 1. MYALGIA 2. PAIN AT BILATERAL THORACIC AREA PROCEDURE TRIGGER POINT INJECTION AT BILATERAL THORACIC AREA SURGEON DR. 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 I EVALUATED THE PATIENT AND REVIEWED THE CHART. THERE IS EVIDENCE OF BANDS OF TISSUE WITH RESTRICTION OF MOVEMENT AND PRESENCE OF TRIGGER POINT AT THE AFFECTED AREA. I WENT OVER THE RISKS, ALTERNATIVES, AND BENEFITS ASSOCIATED WITH THIS PROCEDURE. THE PATIENT WOULD LIKE TO PROCEED AND GAVE CONSENT TO PERFORM THE PROCEDURE. THE PATIENT DENIES UNEXPLAINABLE WEIGHT LOSS, FEVER, CHILLS, OR NEW CHANGES IN URINARY OR BOWEL CONTROL. DESCRIPTION OF PROCEDURE THE PATIENT WAS BROUGHT TO THE PROCEDURE ROOM AND PLACED IN THE SITTING POSITION. THE AREA WAS CLEANED WITH ALCOHOL. THE PROCEDURE WAS DONE USING ASEPTIC STERILE TECHNIQUES. I CHECKED LATERALITY AND THE LEVEL WHERE THE PROCEDURE WAS GOING TO BE PERFORMED WITH THE PATIENT AND THE SUPPORTING STAFF AT THE MOMENT OF THE TIME OUT IN THE PROCEDURE ROOM. USING A 25-GAUGE NEEDLE, TRIGGER POINTS WERE INJECTED WITH A TOTAL OF 40 ML OF BUPIVACAINE 0.25%. AGREED WITH THE PATIENT THE PROCEDURE WAS DONE WITHOUT STEROIDS. THERE WAS NO EVIDENCE OF BLOOD, PARESTHESIA OR CEREBROSPINAL FLUID DURING THE PROCEDURE. THE PATIENT WAS SENT TO THE RECOVERY ROOM. THE PATIENT WAS MOVING THE EXTREMITIES AND DOING WELL. THERE WAS NO COMPLICATION DURING THE PROCEDURE. POST PROCEDURE NOTE THE PATIENT WILL BE SEEN IN A FOLLOW UP IN THE NEXT FEW WEEKS. INSTRUCTIONS WERE GIVEN, QUESTIONS WERE ANSWERED, AND THE PATIENT EXPRESSED UNDERSTANDING AND AGREED WITH THE PLAN. I, RAYO ABRAMS, DOCUMENTED THE ABOVE INFORMATION ACTING A SCRIBE FOR DR. BHARDWAJ. I HAVE REVIEWED THE ABOVE DOCUMENT, WRITTEN BY RAYO DEE AND I VERIFY THAT IT IS ACCURATE. PN WORKMANS' COMP OPINION IN YOUR OPINION, WAS THE INCIDENT THAT THE PATIENT DESCRIBED THE COMPETENT MEDICAL CAUSE OF THIS INJURY/ILLNESS? YES ARE THE PATIENT'S COMPLAINTS CONSISTENT WITH HIS/HER HISTORY OF THE INJURY/ILLNESS? YES IS THE PATIENT'S HISTORY OF THE INJURY/ILLNESS CONSISTENT WITH YOUR OBJECTIVE FINDING? YES WHAT IS THE PERCENTAGE OF TEMPORARY IMPAIRMENT? MODERATE TO MARKED = 66.7% IS THE PATIENT WORKING? NO DOCTOR ON SITE: THELMA NUNEZ MD PROCEDURE CODES 81425 INJ TRIGGER POINT 1/2 MUSCL DISPOSITION & COMMUNICATION FOLLOW UP 3 WEEKS ELECTRONICALLY SIGNED BY THELMA BHARDWAJ MD, MD ON 12/02/2018 AT 06:52 PM EST DISCLAIMER : THIS IS A VISIT SUMMARY EXTRACTED FROM THE [employer] CHART. IT IS NOT A COPY OF THE [employer] PROGRESS NOTE. JULIETA
== END ==
LOC: M PAIN 11:30
PROVIDERS: ATTEND Anesthesiology
DX: M79.18 Myalgia, other site (principal); M54.6 Pain in thoracic spine; J44.9 Chronic obstructive pulmonary disease, unspecified; I50.42 Chronic combined systolic (congestive) and diastolic (congestive) heart failure; E78.5 Hyperlipidemia, unspecified; I11.0 Hypertensive heart disease with heart failure; F10.11 Alcohol abuse, in remission; Z79.84 Long term (current) use of oral hypoglycemic drugs; Z79.82 Long term (current) use of aspirin; Z79.891 Long term (current) use of opiate analgesic; Z79.899 Other long term (current) drug therapy; Z88.6 Allergy status to analgesic agent; Z88.8 Allergy status to other drugs, medicaments and biological substances; Z91.02 Food additives allergy status; Z91.018 Allergy to other foods; Z87.891 Personal history of nicotine dependence; Z86.69 Personal history of other diseases of the nervous system and sense organs; Z96.651 Presence of right artificial knee joint; Z95.0 Presence of cardiac pacemaker

== ENCOUNTER 2018-11-24 11:02 | Day surgery (SDC) | payer OTHER ==
[~2018-11-24] VITALS: Ht 182.9 cm; Wt 118.6 kg
[2018-11-24] VITALS (8 sets, daily range): BP systolic 121–155; BP diastolic 57–80; O2SAT 94–98
[~2018-11-24 11:02] MED LIST changes: -BUPIVACAINE HCL 0.25% 10 ML VIAL As Ordered ONE; -BUPIVACAINE HCL 0.25% 30 ML VIAL As Ordered ONE; +LR 1,000 ML IV ONE; +MUPIROCIN 2% OINT 22 GM TUBE TOP ONE; -PERCOCET 5MG/325MG TAB As Ordered ONE; -TRIAMCINOLONE ACETONIDE SUSP 40 MG/ML VIAL (J3301) As Ordered ONE
[2018-11-24 11:26] LABS: HEMATOCRIT 42.1 % (42.0-52.0); HEMOGLOBIN 13.6 g/dl (13.5-17.5); MEAN CORPUSCULAR HEMOGLOBIN 28.8 pg (27.0-33.0); MEAN CORPUSCULAR HGB CONC 32.3 g/dl (32.0-36.5); PLATELET COUNT, AUTOMATED 230 10^3/uL (150-450); RED BLOOD COUNT 4.73 10^6/uL (4.30-6.10); WHITE BLOOD COUNT 6.5 10^3/uL (4.0-10.0)
[2018-11-24 11:38] LABS: INR 0.94; PARTIAL THROMBOPLASTIN TIME 25.2 SECONDS (25.4-37.6); PROTHROMBIN TIME 12.7 SECONDS (12.1-14.4)
[2018-11-24 11:52] LABS: BLOOD UREA NITROGEN 18 MG/DL (7-18); CALCIUM LEVEL 8.6 MG/DL (8.8-10.2); CARBON DIOXIDE LEVEL 28 MEQ/L (21-32); CHLORIDE LEVEL 109 MEQ/L (98-107); CREATININE FOR GFR 0.96 MG/DL (0.70-1.30); GLOMERULAR FILTRATION RATE > 60.0 (>49); GLUCOSE, FASTING 122 MG/DL (70-100); POTASSIUM SERUM 4.1 MEQ/L (3.5-5.1); SODIUM LEVEL 142 MEQ/L (136-145)
[2018-11-24] MEDS ORDERED: BUPIVACAINE HCL 0.25% 30 ML VIAL As Ordered ONE (13:10)
[2018-11-24] MEDS ORDERED: BUPIVACAINE LIPOSOME/PF 1.3% 20ML VIAL (13.3MG/ML)(EXPAREL)(C9290 PER1MG) As Ordered ONE (13:11)
[2018-11-24] MEDS ORDERED: BUPIVACAINE HCL 0.5% 30 ML VIAL As Ordered ONE (13:35)
[2018-11-24] MEDS ORDERED: ROCURONIUM BROMIDE 50 MG/5 ML VIAL As Ordered ONE (13:53)
[2018-11-24] MEDS ORDERED: MIDAZOLAM INJ 2 MG/2 ML VIAL (J2250) As Ordered ONE (13:53)
[2018-11-24] MEDS ORDERED: dexameTHASONE 4 MG/ML 1ML VIAL (J1100) As Ordered ONE (13:53)
[2018-11-24] MEDS ORDERED: fentaNYL 250 MCG/5 ML INJECTION (J3010) As Ordered ONE (13:53)
[2018-11-24] MEDS ORDERED: PROPOFOL 200 MG/20 ML VIAL As Ordered ONE (13:53)
[2018-11-24] MEDS ORDERED: LIDOCAINE 2% INJ 100 MG/5 ML SDV (FOR ANES.) As Ordered ONE (13:53)
[2018-11-24] MEDS ORDERED: ONDANSETRON 4MG/2ML VIAL (J2405) As Ordered ONE (14:03)
[2018-11-24] MEDS: PERCOCET 5MG/325MG TAB PO PRN ×3 (14:06→20:45)
[2018-11-24] MEDS ORDERED: ePHEDrine SULFATE 25 MG/5 ML(5MG/ML) SYRINGE As Ordered ONE (14:07)
[2018-11-24] MEDS ORDERED: GLYCOPYRROLATE INJ 0.2 MG/ML 2 ML VIAL As Ordered ONE (14:38)
[2018-11-24] MEDS ORDERED: NEOSTIGMINE 10 MG/10 ML VIAL (J2710) As Ordered ONE (14:38)
[2018-11-24] MEDS ORDERED: NITROGLYCERIN 0.4 MG SUBL TABLET SL STA (14:54)
[2018-11-24] MEDS: KCL 20MEQ IN D5/NS 1000ML 1,000 ML IV SCH (14:54)
[2018-11-24] MEDS ORDERED: ACETAMINOPHEN TAB 650MG DOSE (2X325MG) PO PRN (15:00)
[2018-11-24] MEDS ORDERED: BISACODYL 10 MG SUPP PR PRN (15:00)
[2018-11-24] MEDS ORDERED: ONDANSETRON 4MG/2ML VIAL (J2405) IV PRN ×2 (15:00→15:15)
[2018-11-24] MEDS ORDERED: NORCO, ANEXSIA 5/325MG TABLET (HYDROcodone/ACETAMINOPHEN) PO PRN (15:00)
[2018-11-24] MEDS ORDERED: MECLIZINE 25 MG TABLET PO PRN (15:00)
[2018-11-24] MEDS ORDERED: FUROSEMIDE 40 MG TAB PO PRN (15:00)
[2018-11-24] MEDS ORDERED: ALBUTEROL 90 MCG/ACT 8GM HFA INHALER INH PRN (15:00)
[2018-11-24] MEDS ORDERED: LR 1,000 ML IV SCH (15:15)
[2018-11-24] MEDS ORDERED: fentaNYL 100 MCG/2 ML INJECTION (J3010) IV PRN (15:15)
[2018-11-24] MEDS ORDERED: PERCOCET 5MG/325MG TAB PO PRN (15:15)
[2018-11-24] MEDS ORDERED: METOCLOPRAMIDE INJ 10MG/2ML VIAL (J2765) IV PRN (15:15)
[2018-11-24] MEDS: KETOROLAC 30 MG/ML VIAL (J1885) IV SCH (18:00)
[2018-11-24] MEDS: MAGNESIUM CHLORIDE 64 MG TABCR (SLO MAG) PO SCH (20:43)
[2018-11-24] MEDS: AMIODARONE 200 MG TAB (PACERONE) PO SCH (20:46)
[2018-11-24] MEDS: TOLTERODINE (DETROL) 2 MG TAB PO SCH (20:46)
[2018-11-24] MEDS: ATENOLOL 25 MG TAB PO SCH ×2 (20:46→20:54)
[2018-11-24] MEDS: DOCUSATE SODIUM 100 MG CAP PO SCH (20:47)
[2018-11-24] MEDS: GABAPENTIN 400 MG CAP PO SCH (20:47)
[2018-11-24] MEDS: POTASSIUM CHLORIDE 10 MEQ SR TABLET PO SCH (20:48)
[2018-11-24] MEDS ORDERED: HEPARIN SOD (PORCINE) 5000 UNITS/ML VIAL SC SCH (21:00)
[2018-11-24] MEDS ORDERED: OMEPRAZOLE 20 MG CAP PO SCH (21:00)
[2018-11-24] MEDS ORDERED: ATORVASTATIN 20 MG TAB PO SCH (21:00)
[2018-11-24] MEDS ORDERED: DUTASTERIDE 0.5 MG CAP (AVODART) PO SCH (21:00)
[2018-11-24] MEDS ORDERED: TAMSULOSIN 0.4 MG CAP PO SCH (21:00)
[2018-11-24] MEDS ORDERED: ASPIRIN 81 MG ENTERIC TAB PO SCH (21:00)
[2018-11-24] MEDS ORDERED: SPIRONOLACTONE 12.5MG PER 1/2 TABLET PO SCH (21:00)
[2018-11-24] MEDS ORDERED: LISINOPRIL *2.5 MG* TAB PO SCH (21:00)
[2018-11-24] MEDS ORDERED: CETIRIZINE (ZyrTEC) 10 MG TAB PO SCH (21:00)
--- NOTE | 2018-11-24 22:56 | RO ---
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 Pathology pending. PROCEDURE: Excision of extensive chest wall mass interdigitating in between the extrathoracic muscles. SURGEON: Ba Hyatt MD VAMP THROATER: ANESTHESIA: FINDINGS: The mass was quite palpable and quite different from surrounding adipose tissue. It was firm and nodular. It was found to be interdigitating in between the extrathoracic muscles, the serratus anterior in the latissimus dorsi. It was dissected off those muscles. Most of the dissection was done by electrocautery. PROCEDURE: Under satisfactory general anesthesia, the patient was prepped and draped in the usual sterile fashion in the left lateral decubitus position. The tumor had previously been marked. Incision was made and the tumor was encountered almost immediately. It was then shelled out of the surrounding adipose tissue. There was not a good plane between it and the surrounding adipose tissue. As we dissected it down, it was found to be interdigitating between the extrathoracic muscles and these interdigitations were freed of the tumor. The tumor was first swept from anterior to posterior and then posterior to anterior where it was excised towards the middle. The entire excision encompassed the previously demarcated area which had been noted on the skin prior to surgery. This then left us with a rather large defect. The extrathoracic muscles were brought together by #0 Vicryl suture and the remaining subcutaneous tissue and skin was sutured to the extrathoracic muscles so as to remove the defect. A 19 mm round trocar drain was placed in order to keep suction on the wound. The skin was closed with running #3-0 Monocryl suture, subcuticularly. A pressure dressing of fluffed 4 x 4s was then placed. Drain was connected to the grenade and was able to maintain its vacuum. Patient tolerated the procedure well and left the operating room in satisfactory condition for the recovery room.
[2018-11-25] VITALS: BP 142/69
[2018-11-25] MEDS: PERCOCET 5MG/325MG TAB PO PRN ×3 (00:54→10:12)
[2018-11-25 04:00] VITALS: BP 151/52
[2018-11-25] MEDS: KCL 20MEQ IN D5/NS 1000ML 1,000 ML IV SCH (04:14)
[2018-11-25] MEDS: KETOROLAC 30 MG/ML VIAL (J1885) IV SCH ×2 (06:00)
[2018-11-25] MEDS ORDERED: LEVOTHYROXINE 25MCG TABLET (0.025MG) PO SCH (06:00)
[2018-11-25 07:53] VITALS: BP 136/95
[2018-11-25] MEDS ORDERED: metFORMIN (GLUCOPHAGE) 500 MG TAB PO SCH (08:00)
[2018-11-25] MEDS: MAGNESIUM CHLORIDE 64 MG TABCR (SLO MAG) PO SCH (08:22)
[2018-11-25] MEDS: GABAPENTIN 400 MG CAP PO SCH (08:23)
[2018-11-25] MEDS: DOCUSATE SODIUM 100 MG CAP PO SCH (08:23)
[2018-11-25 08:24] VITALS: BP 136/95
[2018-11-25] MEDS: TOLTERODINE (DETROL) 2 MG TAB PO SCH (08:24)
[2018-11-25] MEDS: ATENOLOL 25 MG TAB PO SCH (08:24)
[2018-11-25] MEDS: AMIODARONE 200 MG TAB (PACERONE) PO SCH (08:24)
[2018-11-25] MEDS: POTASSIUM CHLORIDE 10 MEQ SR TABLET PO SCH (08:25)
[2018-11-25] MEDS ORDERED: ADVAIR HFA 115/21MCG INHALER INH SCH (09:00)
[2018-11-25] MEDS ORDERED: MULTIVITAMINS/MINERALS THERAP 1 TAB PO SCH (09:00)
[2018-11-25] MEDS ORDERED: MOM 30ML SUSPENSION UDC PO SCH (09:00)
[2018-11-25] MEDS ORDERED: PANTOPRAZOLE 40MG TAB (PROTONIX) PO SCH (09:00)
[2018-11-25] MEDS ORDERED: oxyBUTYnin *DITROPAN XL* 5 MG TABCR PO SCH (09:00)
--- NOTE | 2018-11-27 09:13 | DSES ---
DATE OF ADMISSION: 11/24/2018 DATE OF DISCHARGE: 11/25/2018 DISCHARGE DIAGNOSIS: 1. Chest wall mass. Pathology was pending. 2. 23 hour stay after excision of chest wall mass. 3. Diabetes. 4. Coronary artery disease. 5. History of ventricular tachycardia. 6. Congestive heart failure. 7. Hypertension. HOSPITAL COURSE: The patient is a 58-year-old white male who developed a painful chest wall mass on the right side approximately 2 years ago he had the exact same type of mass in a mirror distribution on the left side. It was relieved with almost complete resolution of pain. It turned out to be a lipoma between the intrathoracic muscles. He underwent a excision of yet another chest wall mass which also looks like a fatty tumor. He was kept for a 23 hour stay as I placed a drain in order to approximate the overlying tissue to the chest wall. Drain was removed on the first postoperative day. He is being discharged today on his home medications which include amiodarone 200 mg twice a day, aspirin 81 mg at bedtime atenolol 25 mg twice a day, atorvastatin 80 mg at bedtime. Zyrtec 10 mg at bedtime, vitamin D3 2,000 units at bedtime, Avodart 0.5 mg at bedtime, Lasix 40 mg daily as needed for anemia, gabapentin 400 mg four times a day, Synthroid 25 mcg daily, Lisinopril 2.5 mg daily, magnesium chloride 64 mg twice a day, meclizine 25 mg as needed for vertigo, metformin 500 mg in the morning and 1000 mg in the evening, multivitamins 1 tab daily, nitroglycerin 0.4 mg sublingually as needed for chest pain, omeprazole 40 mg at bedtime, oxybutynin 5 mg daily, Percocet 1 tab every 4 hours as needed for pain, potassium 10 mEq twice a day, Advair discus 250/50 1 puff daily, spironolactone 12.5 mg at bedtime, Flomax 0.4 mg at bedtime, Tizanidine 2 mg every 6 hours, Detrol 2 mg twice a day, tramadol 100 mg daily, vitamin D 50,000 units weekly and Zonisamide 50 mg at bedtime. Patient will return to see me in 4 days for postoperative followup.
== END 2018-11-25 10:20 | disposition home or self-care (01) ==
LOC: M SDC 11:02 → M PCU 16:25 → M SDC 11-25 10:20
PROVIDERS: ATTEND Thoracic Surgery (Cardiothoracic Vascular Surgery)
DX: D17.79 Benign lipomatous neoplasm of other sites (principal); E11.9 Type 2 diabetes mellitus without complications; I25.10 Atherosclerotic heart disease of native coronary artery without angina pectoris; I50.40 Unspecified combined systolic (congestive) and diastolic (congestive) heart failure; I87.393 Chronic venous hypertension (idiopathic) with other complications of bilateral lower extremity; E03.9 Hypothyroidism, unspecified; Z86.718 Personal history of other venous thrombosis and embolism; I47.2 Ventricular tachycardia; J44.9 Chronic obstructive pulmonary disease, unspecified; F17.211 Nicotine dependence, cigarettes, in remission; Z79.899 Other long term (current) drug therapy
CPT/HCPCS: 21554; 36415; 80048; 85027; 85610; 85730; 88304; 94640; 96372; C9290; J0690; J1100; J2250; J2405; J2710; J3010

== ENCOUNTER → 2018-11-29 | Outpatient (CLI) | payer OTHER ==
[~2018-11-29] MED LIST changes: -LR 1,000 ML IV ONE; -MUPIROCIN 2% OINT 22 GM TUBE TOP ONE
--- NOTE | 2018-11-30 02:16 | REP ---
Clinical: Swelling . Comparison: 11/17/2018 . Technique: PA and lateral. Findings: The mediastinum and cardiac silhouette are normal. Pacemaker in stable position. The lung morris are clear and without acute consolidation, effusion, or pneumothorax. The skeletal structures are intact and normal. Impression: 1. No acute cardiopulmonary process. Electronically Signed by Chadd Rivas MD 11/30/2018 02:06 A
== END ==
LOC: M SMT 10:02
PROVIDERS: ATTEND Thoracic Surgery (Cardiothoracic Vascular Surgery)
DX: R22.2 Localized swelling, mass and lump, trunk (principal)

== ENCOUNTER → 2018-12-15 | Outpatient (CLI) | payer OTHER ==
[~2018-12-15] MED LIST changes: -/ADVA50050 IN; +ADVA1AER2 IN; -ASPI1TAB PO; +ASPI81TA26 PO; +LISI-1046 PO; -LISI2.5T5 PO
--- NOTE | 2018-12-31 23:51 | ECWPNPC ---
PATIENT NAME: CAMILO ARMSTRONG : 1960 GENDER: MALE VISIT DATE: 12/15/2018 DISCHARGE DATE: 12/15/18 1338 VISIT LOCKED DATE TIME: PHYSICIAN: THELMA BHARDWAJ MD RESOURCE: THELMA BHARDWAJ MD REASON FOR APPOINTMENT 1. W/C LOW BACK HISTORY OF PRESENT ILLNESS HISTORY OF PRESENT ILLNESS: PAIN THE PATIENT DESCRIBES THE PAIN... 58 YEAR OLD MALE PATIENT WITH A HISTORY OF CHRONIC LOW BACK PAIN. THE PATIENT DESCRIBES THE PAIN ACHING, SHARP, STABBING AND CONTINUOUS WITH A PAIN SCORE OF 6-8/10. PATIENT STATES THE PAIN CAUSES HIM TO HAVE DIFFICULTY WALKING AND DOING ACTIVITIES SUCH CLEANING AND SHOPPING. 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 THE PATIENT HAD A TRIGGER POINT INJECTION ON 06/02/2018 AND REPORTS HAVING SIGNIFICANT PAIN RELIEF FOR SEVERAL MONTHS. PATIENT DENIES UNEXPLAINABLE WEIGHT LOSS, FEVER, CHILLS, NEW CHANGES ON HIS URINARY OR BOWEL CONTROL. FALL RISK SCREENING: SCREENING : NO FALLS IN THE PAST YEAR. CURRENT MEDICATIONS TAKING ZYRTEC 10 MG TABLET 1 TABLET ORALLY ONCE A DAY TAKING METFORMIN HCL 500 MG TABLET DIRECTED ORALLY 500 MG IN AM AND 1000MG AT DINNER TAKING OMEPRAZOLE 40 MG CAPSULE DELAYED RELEASE 1 CAPSULE ORALLY ONCE A DAY TAKING LISINOPRIL 2.5MG TABLET 1 TAB ORALLY AT BEDTIME TAKING ASPIRIN 81 MG TABLET DELAYED RELEASE 1 TAB ORALLY DAILY TAKING LIPITOR 80 MG TABLET 1 TABLET ORALLY ONCE A DAY AT BEDTIME TAKING NASACORT AQ 55 MCG/ACT AEROSOL 1 PUFF IN EACH NOSTRIL NASALLY ONCE A DAY TAKING ADVAIR DISKUS 250-50 MCG/DOSE MISCELLANEOUS 1 INHALATION. ALWAYS RINSE YOUR MOUTH OUT AFTER USE DAILY TAKING VENTOLIN HFA 108 (90 BASE) MCG/ACT AEROSOL SOLUTION 2 PUFFS INHALATION EVERY 4-6 HOURS NEEDED, NOTES: > 6 MONTHS TAKING NITROSTAT 0.4 MG TABLET SUBLINGUAL 1 TAB SUBLINGUAL TAB1 TAB FOR CHEST PAIN IF NO RELIEF IN 5 MINUTES TAKE 2ND NITRO IF NO RELIEF AFTER 5 MINUTES TAKE 3RD NITRO ER, NOTES: 06/2018 TAKING MIRALAX 17 GM POWDER 17GM ORALLY DAILY NEEDED, NOTES: > 1 WEEK TAKING MAGNESIUM 64 MG CAPSULE 1 TAB ORALLY BID TAKING MULTIVITAMINS 1 TABLET DIRECTED ORALLY DAILY TAKING ZONISAMIDE 50 MG CAPSULE 1 CAP ORALLY ONCE DAILY TAKING ALDACTONE 25 MG TABLET 1/2 TAB ORALLY DAILY TAKING LASIX 40 MG TABLET 1 TAB ORALLY BID TAKING ATENOLOL 50 MG TABLET 1 TABLET ORALLY ONCE A DAY TAKING AMIODARONE HCL 200 MG TABLET 1 TABLET ORALLY BID, NOTES: 11/23/18899 TAKING POTASSIUM CHLORIDE ER 20 MEQ TABLET EXTENDED RELEASE 1 TABLET WITH FOOD ORALLY BID, NOTES: 11/23/18899 TAKING DETROL 2 MG TABLET 1 TABLET ORALLY TWICE A DAY, NOTES: 11/23/18899 TAKING FLOMAX 0.4 MG CAPSULE EXTENDED RELEASE 24 HOUR 2 CAPSULE 30 MINUTES AFTER THE SAME MEAL EACH DAY DAILY, NOTES: 11/22/181999 TAKING AVODART 0.5 MG CAPSULE 1 CAPSULE ORALLY ONCE A DAY, NOTES: 11/22/181999 TAKING VITAMIN D-3 5000 UNIT TABLET 1 TABLET ORALLY ONCE A DAY, NOTES: 11/22/181999 TAKING COLACE 100 MG CAPSULE 1 CAPSULE ORALLY TWICE DAILY, NOTES: 11/23/18899 TAKING DRISDOL 18263 UNIT CAPSULE TAKE 1 CAPSULE BY MOUTH ONCE EVERYOTHER WEEK , NOTES: 11/11/18 TAKING MECLIZINE HCL 25 MG TABLET 1 TABLET ORALLY 1-2 TIMES DAILY NEEDED, NOTES: 11/23/18799 TAKING OXYBUTYNIN CHLORIDE ER 5 MG TABLET EXTENDED RELEASE 24 HOUR TAKE ONE TABLET BY MOUTH EVERY DAY DIRECTED , NOTES: 11/23/18899 TAKING PERCOCET 5-325 MG TABLET 1 TABLET ORALLY Q 4 HRS PRN PAIN MDD=5, NOTES: 11/23/18899 TAKING TIZANIDINE HCL 2 MG TABLET 1 TABLET NEEDED ORALLY FOR SPASMS AND PAIN EVERY 6 HOURS NEEDED MDD3, NOTES: 11/23/18899 TAKING TRAMADOL HCL ER 100 MG TABLET EXTENDED RELEASE 24 HOUR 1 TABLET ORALLY ONCE A DAY MDD=1, NOTES: 11/23/18899 TAKING GABAPENTIN 400 MG CAPSULE 1 CAPSULE ORALLY FOUR TIMES DAILY MDD4, NOTES: 11/23/18899 TAKING LEVOTHYROXINE SODIUM 25 MCG TABLET TAKE ONE TABLET BY MOUTH EVERY MORNING ON AN EMPTY STOMACH ORALLY ONCE A DAY, NOTES: 11/23/18899 NOT-TAKING ADVAIR DISKUS 250-50 MCG/DOSE AEROSOL POWDER BREATH ACTIVATED INHALE ONE PUFF BY MOUTH EVERY DAY RISNE MOUTH AFTER USE , NOTES: 11/23/18 0900 NOT-TAKING VITAMIN D3 2000 UNITS TABLET 1 TAB ORALLY ONCE A DAY NOT-TAKING VENLAFAXINE HCL ER 37.5 MG CAPSULE EXTENDED RELEASE 24 HOUR 1 CAP ORALLY ONCE DAILY NOT-TAKING SKELAXIN 800 MG TABLET 1 TABLET ORALLY FOUR TIMES DAY WORKMEN COMP NOT-TAKING TAMSULOSIN HCL 0.4 MG CAPSULE 1 CAPSULE 30 MINUTES AFTER THE SAME MEAL EACH DAY ORALLY ONCE A DAY NOT-TAKING XARELTO 10 MG TABLET 1 TABLET WITH FOOD ORALLY ONCE A DAY NOT-TAKING COREG 12.5MG TABLET 1 TAB ORALLY TWICE DAILY NOT-TAKING CYMBALTA 20 MG CAPSULE DELAYED RELEASE PARTICLES 1 CAPSULE ORALLY ONCE A DAY MEDICATION LIST REVIEWED AND RECONCILED WITH THE PATIENT PAST MEDICAL HISTORY COPD- SPIROMETRY- 02/05/14- DECLINES AT THIS TIME CHF (SYSTOLIC AND DIASTOLIC)- SABRINA HYPERLIPIDEMIA HYPERTENSION GERD CHRONIC LOW BACK PAIN- W COMP- DR BOJORQUEZ- CHRONIC PAIN MEDS PER [facility]IN MANAG[facility]. CHRONIC RT KNEE PAIN VERTIGO (SINCE 1990) OBESITY H/O HEAVY ALCOHOL USE (IN REMISSION) ASCVD 10-YEAR RISK IS 3.6% IN HTE COLONOSCOPY 2009 BILATERAL HYDROCELE EPIDIDYMITIS CYST RIGHT HEPTITIS B (FROM BLOOD TRANSFUSION) PACEMAKER DEFIBRILLATOR 04/2018 HEART MONITOR -WEARING FOR 1 MONTH - V-TACH V-TAC HOSP 06/21/2018 DENSE LIPMA ALLERGIES RED DYE: RASH - ALLERGY TOMATO: NAUSEA/VOMITING - ALLERGY FINASTERIDE: FLARED CHF - CONTRAINDICATION NSAIDS: CONGESTIVE FAILURE - CONTRAINDICATION VOLTAREN: GEL/ SPASMS/PAIN - ALLERGY LYRICA: CHF - CONTRAINDICATION SURGICAL HISTORY NO PERSONAL OR FHX SEVERE REACTION TO ANESTHESIA R HUMERUS FIXATION 1972 R MEDIAL MENISCECTOMY 1981 DRAINAGE OF R NECK ? PERITONSILAR ABSCESS 1996 S/P AICD PLACMENT 2007 L4-S1 SPINAL DECOMPRESSION WITH INSTRUMENTED POSTERIOR AND INTERBODY FUSION. DUROTOMY REPAIR. (TIMOTHY @ [facility]) 03/2011 EGD-REINDL NML 03/13/10 COLONOSCOPY- REINDL. DIVERTICULOSIS- REPEAT 5-10 YEARS 03/13/10 RIGHT KNEE SURGERY BY ORTHO 02/05 NEW ICD 12/29/16 MASS [id number] AGAIN 02/2018 REMOVAL TUMOR LEFT THORACIC 02/27/18 RIGHT KNEE REPLACEMENT 06/2018 FAMILY HISTORY FATHER: ALIVE, BYPASS. KIDNEY CANCER HAD KIDNEY REMOVED. METASTATIC CANCER TO LUNGS., DIAGNOSED WITH HYPERTENSION, HEART DISEASE, CANCER MOTHER: ALIVE, HYPERTENSION, HEART DISEASE, OTHER, DIABETES SIBLINGS: 2 BROTHERS HAD BYPASS. SISTER HAS HEART ISSUES SINCE . 1 BROTHER HAD HYDROCELE. 2 BROTHER(S) , 5 SISTER(S) . 1 SON(S) , 1 DAUGHTER(S) - HEALTHY. FATHER-MEDISTATIC LUNG CA\\NMOTHER--HYPOTHYROID\\NOLDER BROTHER-STROKE\\NSON- ASTHMA. SOCIAL HISTORY GENERAL: TOBACCO USE ARE YOU A:FORMER SMOKER QUIT 2007 SMOKED FOR 33 YRS. 1 PACK PER DAY. ALCOHOL SCREENING DID YOU HAVE A DRINK CONTAINING ALCOHOL IN THE PAST YEAR?NO POINTS0 INTERPRETATIONNEGATIVE RECREATIONAL DRUG USE DRUG USE?NO CAFFEINE CAFFEINE USE?NO SEXUAL HX HAD SEX IN THE LAST 12 MONTHS (VAGINAL, ORAL, OR ANAL)?NO HAVE YOU EVER HAD AN STD?NO SABIANISM [id number] HOLINESS LANGUAGE LANGUAGES SPOKEN:SLOVENIAN EDUCATION LEVEL OF EDUCATION:COLLEGE LEARNING BARRIERS / SPECIAL NEEDS CHANGE FROM LAST VISIT?NO BARRIERS TO LEARNING?NO HEARING IMPAIRED?YES BILATERAL VIEJAS WORSE ON LEFT VISION IMPAIRED?YES COGNITIVELY IMPAIRED?NO :CORRECTIVE LENSES READINESS TO LEARN?YES LEARNING PREFERENCES?NO LEARNING CAPABILITIES PRESENT?YES EMOTIONAL BARRIERS?NO SPECIAL DEVICES?NO STRATEGIC ANALYST NEEDED?NO DOMESTIC VIOLENCE DO YOU FEEL SAFE IN YOUR ENVIRONMENT?YES EXERCISE: WALKS. MARITAL STATUS: .. PAIN CLINIC PFS, CLERGY, PUBLIC HEALTH REFERRALS PFS REFERRAL NEEDED?NO CLERGY REFERRAL NEEDED?NO PUBLIC HEALTH REFERRAL NEEDED?NO WAS THE PROVIDER NOTIFIED OF ANY PERTINENT INFO?YES HAS THE PATIENT BEEN EDUCATED REGARDING HIS/HER PLAN OF CARE?YES HAS THE PATIENT BEEN EDUCATED REGARDING PAIN, THE RISK FOR PAIN, THE IMPORTANCE OF EFFECTIVE PAIN MANAGEMENT, AND THE PAIN ASSESSMENT PROCESS?YES ADVANCE DIRECTIVE ADVANCE DIRECTIVE DISCUSSED WITH PATIENT:YES PT. HAS HCP CHILDREN 1. MARQUITA PATTI 2. [facility] [place] COPY ON FILE WITH HOSPITAL 05/09/18 REVIEWED WITH PT. 05/23/18 REVIEWED WITH PT LASREVIEWED WITH PATIENT 07/11/18 1346 JSREVIEWED WITH PATIENT 07/27/18 1108 JSREVIEWED WITH PATIENT 08/22/18 0911 JSREVIEWED WITH PATIENT 10/03/18 1335 BVREVIEWED WITH PATIENT 11/23/18 1215 LAS. HOSPITALIZATION/MAJOR DIAGNOSTIC PROCEDURE CHF 2008 DOG BITE 01/2015 RELATED TO SURGERIES [facility]AC 06/21/18 SURGERY RELATED 06/2018 REVIEW OF SYSTEMS REVIEWED BY: PROVIDER: THELMA BHARDWAJ MD . CONSTITUTIONAL: ANY CHANGE IN YOUR MEDICAL CONDITION? 11-24-18 LIPOMA REMOVED FROM RIGHT SHOULDER AREA-DR KAUFMAN . CHILLS NO . FEVER NO . INFECTION: DO YOU HAVE NEW INFECTIONS? NO . DO YOU HAVE HISTORY OF MRSA? NO . MUSCULOSKELETAL: ANY NEW PATTERNS OF PAIN OR NUMBNESS? NO . GASTROENTEROLOGY: ANY NEW CHANGE IN BOWEL CONTROL? NO . GENITOURINARY: ANY NEW CHANGE IN BLADDER CONTROL? NO . IS THERE A CHANCE YOU COULD BE ? NO . HEMATOLOGY/LYMPH: DO YOU TAKE ANY BLOOD THINNERS? (FOR EXAMPLE- COUMADIN, PLAVIX, AGGRENOX, PLATEL, PRADAXA, OR XARELTO) NO . WHEN WAS YOUR LAST DOSE? DATE: TIME: . NEUROLOGY: HAVE YOU FALLEN IN THE PAST 12 MONTHS? NO . ANY NEW EXTREMITY NUMBNESS OR WEAKNESS? NO . CARDIOLOGY: DO YOU HAVE A PACEMAKER OR DEFIBRILLATOR? YES . RESPIRATORY: HAVE YOU BEEN SICK IN THE PAST WEEK? NO . FEVER NO . FLU LIKE SYMPTOMS? NO . COUGH NO . INTEGUMENTARY: DO YOU HAVE ANY RASHES OR OPEN SORES? NO . ALLERGIC/IMMUNO: ARE YOU ALLERGIC TO IV DYE? NO . ANY NEW ALLERGIES? NO . PSYCHIATRIC: DO YOU HAVE THOUGHTS OF HURTING YOURSELF OR SOMEONE ELSE? NO . ARE YOU ABUSED, NEGLECTED, OR IN AN UNSAFE ENVIRONMENT? NO . ENDOCRINOLOGY: ARE YOU DIABETIC? NO . OTHER: DO YOU NEED ANY PRESCRIPTIONS? NO . IF YES, PLEASE LIST: ____ . ANY NEW PROBLEMS WITH YOUR MEDICATIONS? NO . WHEN DID YOU LAST EAT? ____ . WHEN DID YOU LAST DRINK? ____ . WHAT DID YOU LAST DRINK? ____ . NAME OF PERSON DRIVING YOU HOME? ____ . DO YOU HAVE ANY OTHER QUESTIONS OR CONCERNS NO . VITAL SIGNS WT 263 LBS, HT 72 IN, BMI 35.67 INDEX, BP 109/60 MM HG, HR 61 /MIN, RR 18 /MIN, TEMP 97.6 F, OXYGEN SAT % 95, SAFE IN ENV? (Y/N) YES, REVIEWED BY: DEYANIRA. EXAMINATION GENERAL EXAMINATION: PATIENT IS ALERT O X 3 AND COOPERATIVE. TENDERNESS IN THE LOWER BACK AREA. FABERE TEST POSITIVE AT SI JOINTS. TENDERNESS AT SI'S JOINTS. CT OF THE LUMBAR SPINE DONE 04/13/2016 SHOWS LAMINECTOMY CHANGES. ASSESSMENTS SACROILIITIS - M46.1 (PRIMARY) MYALGIA, OTHER SITE - M79.18 TREATMENT MYALGIA, OTHER SITE CLINICAL NOTES: WE DISCUSSED SEVERAL ISSUES WITH MR. ARMSTRONG'S PAIN MANAGEMENT CASE. DUE TO THE TENDERNESS IN THE LOW BACK AND DIFFICULTY WITH MOVEMENT , I WOULD LIKE TO MOVE FORWARD WITH A BILATERAL SACROILIAC JOINT INJECTION AT THIS TIME. WE DISCUSSED THE BENEFITS, RISKS AND ALTERNATIVES OF THE INJECTION AND THE PATIENT WOULD LIKE TO PROCEED. WE WILL REQUEST AUTHORIZATION FOR THE INJECTION AND SCHEDULE AFTER AUTHORIZATION OBTAINED. PATIENT WILL FOLLOW UP WITH ME 10 WEEKS AFTER INJECTION. INSTRUCTIONS WERE GIVEN, QUESTIONS WERE ANSWERED, PATIENT REPORTS UNDERSTANDING AND AGREES WITH THE PLAN. I, MATTY PITT, DOCUMENTED THE ABOVE INFORMATION ACTING A SCRIBE FOR DR. BHARDWAJ. I HAVE REVIEWED THE ABOVE DOCUMENT, WRITTEN BY MATTY DEE AND I VERIFY THAT IT IS ACCURATE. PROCEDURES PN WORKMANS' COMP OPINION IN YOUR OPINION, WAS THE INCIDENT THAT THE PATIENT DESCRIBED THE COMPETENT MEDICAL CAUSE OF THIS INJURY/ILLNESS? YES ARE THE PATIENT'S COMPLAINTS CONSISTENT WITH HIS/HER HISTORY OF THE INJURY/ILLNESS? YES IS THE PATIENT'S HISTORY OF THE INJURY/ILLNESS CONSISTENT WITH YOUR OBJECTIVE FINDING? YES WHAT IS THE PERCENTAGE OF TEMPORARY IMPAIRMENT? MODERATE TO MARKED = 66.7% IS THE PATIENT WORKING? NO DOCTOR ON SITE: THELMA NUNEZ MD PROCEDURE CODES FA211 ESTABILISHED PATIENT [facility] FACILITY CHARGE G8427 CURRENT MEDS W/DOSAGES DOCUMENTED G8730 PAIN ASSESS POS TOOL F/U PLAN DOC DISPOSITION & COMMUNICATION ELECTRONICALLY SIGNED BY THELMA BHARDWAJ MD, MD ON 12/31/2018 AT 04:04 PM EDT DISCLAIMER : THIS IS A VISIT SUMMARY EXTRACTED FROM THE [email or web address] CHART. IT IS NOT A COPY OF THE [email or web address] PROGRESS NOTE. JULIETA
== END ==
LOC: M PAIN 12:15
PROVIDERS: ATTEND Anesthesiology
DX: M46.1 Sacroiliitis, not elsewhere classified (principal); M79.18 Myalgia, other site; J44.9 Chronic obstructive pulmonary disease, unspecified; I50.42 Chronic combined systolic (congestive) and diastolic (congestive) heart failure; Z79.82 Long term (current) use of aspirin; Z79.84 Long term (current) use of oral hypoglycemic drugs; Z79.891 Long term (current) use of opiate analgesic; Z79.899 Other long term (current) drug therapy; Z88.8 Allergy status to other drugs, medicaments and biological substances; Z91.018 Allergy to other foods; Z91.048 Other nonmedicinal substance allergy status; Z95.810 Presence of automatic (implantable) cardiac defibrillator

== ENCOUNTER → 2018-12-15 | Outpatient (CLI) | payer OTHER ==
[~2018-12-15] MED LIST changes: +/ADVA50050 IN; -ADVA1AER2 IN; +ASPI1TAB PO; -ASPI81TA26 PO; -LISI-1046 PO; +LISI2.5T5 PO
[2018-12-15 15:14] LABS: ALBUMIN 3.6 GM/DL (3.2-5.2); ALT/SGPT 130 U/L (12-78); BILIRUBIN,TOTAL 0.3 MG/DL (0.2-1.0); BLOOD UREA NITROGEN 20 MG/DL (7-18); CALCIUM LEVEL 9.2 MG/DL (8.8-10.2); CARBON DIOXIDE LEVEL 30 MEQ/L (21-32); CHLORIDE LEVEL 108 MEQ/L (98-107); CREATININE FOR GFR 0.97 MG/DL (0.70-1.30); GLOMERULAR FILTRATION RATE > 60.0 (>49); GLUCOSE, FASTING 98 MG/DL (70-100); MAGNESIUM LEVEL 2.2 MG/DL (1.8-2.4); POTASSIUM SERUM 4.7 MEQ/L (3.5-5.1); SODIUM LEVEL 143 MEQ/L (136-145); TOTAL PROTEIN 6.3 GM/DL (6.4-8.2)
--- NOTE | 2018-12-15 16:08 | REP ---
Chest two views HISTORY: ventricular tachycardia Comparison: 11/29/2018 The lungs are clear. The heart is normal in size. The pulmonary vasculature is normal in appearance. The bony structure is intact. A cardiac pacemaker is present. IMPRESSION: No acute disease. Electronically Signed by Maurizio Caceres MD 12/15/2018 03:59 P
== END ==
LOC: M LAB 13:56
PROVIDERS: ATTEND Physician Assistant
DX: Z95.0 Presence of cardiac pacemaker (principal); I50.42 Chronic combined systolic (congestive) and diastolic (congestive) heart failure

== ENCOUNTER → 2018-12-18 | Outpatient (CLI) | payer OTHER ==
--- NOTE | 2018-12-18 14:13 | REP ---
Clinical: Bilateral hip pain. Technique: Frontal view of the pelvis with neutral and frog lateral views of the bilateral hips at Findings: Mild symmetric age-related changes include increased sclerosis to the acetabular roof with mild joint space narrowing and subtle marginal spurring. There is no evidence for acute fracture dislocation. The bilateral proximal femurs appear intact and normal. Scattered vascular calcifications are identified along with evidence for prior lower lumbar fixation and discectomy. Impression: 1. 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 Electronically Signed by Chadd Rivas MD 12/18/2018 02:04 P
== END ==
LOC: M RAD 12:31
PROVIDERS: ATTEND Family Medicine
DX: M25.851 Other specified joint disorders, right hip (principal); M25.852 Other specified joint disorders, left hip; M25.551 Pain in right hip

== ENCOUNTER → 2018-12-26 | Outpatient (CLI) | payer OTHER ==
[~2018-12-26] MED LIST changes: -/ADVA50050 IN; +ADVA1AER2 IN; -ASPI1TAB PO; +ASPI81TA26 PO; +LISI-1046 PO; -LISI2.5T5 PO
== END ==
LOC: M PAIN 12:45
PROVIDERS: ATTEND Anesthesiology
DX: M46.1 Sacroiliitis, not elsewhere classified (principal); Z53.29 Procedure and treatment not carried out because of patient's decision for other reasons

== ENCOUNTER → 2019-01-10 | Outpatient (CLI) | payer OTHER ==
[~2019-01-10] MED LIST changes: +BUPIVACAINE HCL 0.25% 30 ML VIAL As Ordered ONE; +ISOVUE-M 300 61% 15ML VIAL (Q9967) As Ordered ONE; +LIDOCAINE 1% SDV INJ 30 ML VIAL As Ordered ONE; +TRIAMCINOLONE ACETONIDE SUSP 40 MG/ML VIAL (J3301) As Ordered ONE
--- NOTE | 2019-01-10 17:58 | REP ---
Bilateral SI joint series: Four views. History: Injection procedure for pain. 20 seconds of fluoroscopy time is reported. Findings: A sequence of four last image hold fluoroscopically obtained spot radiographs of the SI joints document needle position and contrast injection associated with SI joint injection procedure. Electronically Signed by Lele Mcrae MD 01/10/2019 08:32 P
--- NOTE | 2019-01-23 00:16 | ECWPNPC ---
PATIENT NAME: CAMILO ARMSTRONG : 1960 GENDER: MALE VISIT DATE: 01/10/2019 DISCHARGE DATE: 01/10/19 1541 VISIT LOCKED DATE TIME: PHYSICIAN: THELMA BHARDWAJ MD RESOURCE: THELMA BHARDWAJ MD REASON FOR APPOINTMENT 1. W/C NYSIF BILATERAL SIJ HISTORY OF PRESENT ILLNESS HISTORY OF PRESENT ILLNESS: PAIN THE PATIENT DESCRIBES THE PAIN... FALL RISK SCREENING: SCREENING :NO FALLS REPORTED IN THE LAST YEAR CURRENT MEDICATIONS TAKING ZYRTEC 10 MG TABLET 1 TABLET ORALLY ONCE A DAY, NOTES: 01/09 9PM TAKING METFORMIN HCL 500 MG TABLET DIRECTED ORALLY 500 MG IN AM AND 1000MG AT DINNER, NOTES: 01/09 9PM TAKING OMEPRAZOLE 40 MG CAPSULE DELAYED RELEASE 1 CAPSULE ORALLY ONCE A DAY, NOTES: 01/09 9PM TAKING LISINOPRIL 2.5MG TABLET 1 TAB ORALLY AT BEDTIME, NOTES: 01/09 9PM TAKING ASPIRIN 81 MG TABLET DELAYED RELEASE 1 TAB ORALLY DAILY, NOTES: 01/09 9PM TAKING LIPITOR 80 MG TABLET 1 TABLET ORALLY ONCE A DAY AT BEDTIME, NOTES: 01/09 9PM TAKING NASACORT AQ 55 MCG/ACT AEROSOL 1 PUFF IN EACH NOSTRIL NASALLY ONCE A DAY, NOTES: 01/09 9PM TAKING ADVAIR DISKUS 250-50 MCG/DOSE MISCELLANEOUS 1 INHALATION. ALWAYS RINSE YOUR MOUTH OUT AFTER USE DAILY, NOTES: 01/10 7AM TAKING VENTOLIN HFA 108 (90 BASE) MCG/ACT AEROSOL SOLUTION 2 PUFFS INHALATION EVERY 4-6 HOURS NEEDED, NOTES: > 6 MONTHS TAKING NITROSTAT 0.4 MG TABLET SUBLINGUAL 1 TAB SUBLINGUAL TAB1 TAB FOR CHEST PAIN IF NO RELIEF IN 5 MINUTES TAKE 2ND NITRO IF NO RELIEF AFTER 5 MINUTES TAKE 3RD NITRO ER, NOTES: 05/2018 TAKING MIRALAX 17 GM POWDER 17GM ORALLY DAILY NEEDED, NOTES: > 1 WEEK TAKING MAGNESIUM 64 MG CAPSULE 1 TAB ORALLY BID, NOTES: 01/10 7AM TAKING MULTIVITAMINS 1 TABLET DIRECTED ORALLY DAILY, NOTES: 01/10 7AM TAKING ZONISAMIDE 50 MG CAPSULE 1 CAP ORALLY ONCE DAILY, NOTES: 01/09 9PM TAKING ALDACTONE 25 MG TABLET 1/2 TAB ORALLY DAILY, NOTES: 01/09 9PM TAKING LASIX 40 MG TABLET 1 TAB ORALLY BID NEEDED, NOTES: 1 MONTH TAKING ATENOLOL 50 MG TABLET 1 TABLET ORALLY BID, NOTES: 01/10 TAKING AMIODARONE HCL 200 MG TABLET 1 TABLET ORALLY BID, NOTES: 01/10 TAKING POTASSIUM CHLORIDE ER 20 MEQ TABLET EXTENDED RELEASE 1 TABLET WITH FOOD ORALLY BID, NOTES: 01/10 TAKING FLOMAX 0.4 MG CAPSULE EXTENDED RELEASE 24 HOUR 2 CAPSULE 30 MINUTES AFTER THE SAME MEAL EACH DAY DAILY, NOTES: 01/09 9PM TAKING AVODART 0.5 MG CAPSULE 1 CAPSULE ORALLY ONCE A DAY, NOTES: 01/09 9PM TAKING VITAMIN D-3 5000 UNIT TABLET 1 TABLET ORALLY ONCE A DAY, NOTES: 01/09 9PM TAKING COLACE 100 MG CAPSULE 1 CAPSULE ORALLY TWICE DAILY, NOTES: 01/10 TAKING MECLIZINE HCL 25 MG TABLET 1 TABLET ORALLY DAILY AND 2 TABS NEEDED, NOTES: 01/10 TAKING TIZANIDINE HCL 2 MG TABLET 1 TABLET NEEDED ORALLY FOR SPASMS AND PAIN EVERY 6 HOURS NEEDED MDD3, NOTES: TAKING TRAMADOL HCL ER 100 MG TABLET EXTENDED RELEASE 24 HOUR 1 TABLET ORALLY ONCE A DAY MDD=1, NOTES: 01/10 TAKING GABAPENTIN 400 MG CAPSULE 1 CAPSULE ORALLY FOUR TIMES DAILY MDD4, NOTES: 01/10 TAKING LEVOTHYROXINE SODIUM 25 MCG TABLET TAKE ONE TABLET BY MOUTH EVERY MORNING ON AN EMPTY STOMACH ORALLY ONCE A DAY, NOTES: 01/10 TAKING OXYCODONE-ACETAMINOPHEN 10-325 MG TABLET (SCHEDULE II DRUG) TAKE ONE TABLET BY MOUTH EVERY 4 HOURS NEEDED FOR PAIN AFTER SURGERY MAXIMUM DAILY DOSE SIX TABLETS ORAL , NOTES: 3 WEEKS TAKING OXYBUTYNIN CHLORIDE ER 5 MG TABLET EXTENDED RELEASE 24 HOUR 1 TABLET ORALLY ONCE A DAY, NOTES: 01/10 TAKING PERCOCET 5-325 MG TABLET 1 TABLET ORALLY Q 4 HRS PRN PAIN MDD=5, NOTES: 01/10 TAKING DETROL 2 MG TABLET 1 TABLET ORALLY TWICE A DAY, NOTES: 01/10 TAKING DRISDOL 65145 UNIT CAPSULE 1 CAPSULE ORALLY EVERY OTHER WEEK, NOTES: 1 WEEK AGO NOT-TAKING ADVAIR DISKUS 250-50 MCG/DOSE AEROSOL POWDER BREATH ACTIVATED INHALE ONE PUFF BY MOUTH EVERY DAY RISNE MOUTH AFTER USE , NOTES: 11/23/18 0900 NOT-TAKING VITAMIN D3 2000 UNITS TABLET 1 TAB ORALLY ONCE A DAY NOT-TAKING VENLAFAXINE HCL ER 37.5 MG CAPSULE EXTENDED RELEASE 24 HOUR 1 CAP ORALLY ONCE DAILY NOT-TAKING SKELAXIN 800 MG TABLET 1 TABLET ORALLY FOUR TIMES DAY WORKMEN COMP NOT-TAKING TAMSULOSIN HCL 0.4 MG CAPSULE 1 CAPSULE 30 MINUTES AFTER THE SAME MEAL EACH DAY ORALLY ONCE A DAY NOT-TAKING XARELTO 10 MG TABLET 1 TABLET WITH FOOD ORALLY ONCE A DAY NOT-TAKING COREG 12.5MG TABLET 1 TAB ORALLY TWICE DAILY NOT-TAKING CYMBALTA 20 MG CAPSULE DELAYED RELEASE PARTICLES 1 CAPSULE ORALLY ONCE A DAY MEDICATION LIST REVIEWED AND RECONCILED WITH THE PATIENT PAST MEDICAL HISTORY COPD- SPIROMETRY- 02/05/14- DECLINES AT THIS TIME CHF (SYSTOLIC AND DIASTOLIC)- SABRINA HYPERLIPIDEMIA HYPERTENSION GERD CHRONIC LOW BACK PAIN- W COMP- DR BOJORQUEZ- CHRONIC PAIN MEDS PER [facility] PAIN MANAGEMENT. CHRONIC RT KNEE PAIN VERTIGO (SINCE 1990) OBESITY H/O HEAVY ALCOHOL USE (IN REMISSION) ASCVD 10-YEAR RISK IS 3.6% IN HTE COLONOSCOPY 2009 BILATERAL HYDROCELE EPIDIDYMITIS CYST RIGHT HEPTITIS B (FROM BLOOD TRANSFUSION) PACEMAKER DEFIBRILLATOR 04/2018 HEART MONITOR -WEARING FOR 1 MONTH - V-TACH V-TAC HOSP 06/21/2018 DENSE LIPMA ALLERGIES RED DYE: RASH - ALLERGY TOMATO: NAUSEA/VOMITING - ALLERGY FINASTERIDE: FLARED CHF - CONTRAINDICATION NSAIDS: CONGESTIVE FAILURE - CONTRAINDICATION VOLTAREN: GEL/ SPASMS/PAIN - ALLERGY LYRICA: CHF - CONTRAINDICATION SURGICAL HISTORY NO PERSONAL OR FHX SEVERE REACTION TO ANESTHESIA R HUMERUS FIXATION 1972 R MEDIAL MENISCECTOMY 1981 DRAINAGE OF R NECK ? PERITONSILAR ABSCESS 1996 S/P AICD PLACMENT 2007 L4-S1 SPINAL DECOMPRESSION WITH INSTRUMENTED POSTERIOR AND INTERBODY FUSION. DUROTOMY REPAIR. (TIMOTHY @ [facility]) 03/2011 EGD-REINDL NML 03/13/10 COLONOSCOPY- REINDL. DIVERTICULOSIS- REPEAT 5-10 YEARS 03/13/10 RIGHT KNEE SURGERY BY ORTHO 02/05 NEW ICD 12/29/16 MASS [id number] AGAIN 02/2018 REMOVAL TUMOR LEFT THORACIC 02/27/18 RIGHT KNEE REPLACEMENT 06/2018 REMOVAL OF TUMOR RIGHT BACK- DR. KAUFMAN 11/24/18 FAMILY HISTORY FATHER: ALIVE, BYPASS. KIDNEY CANCER HAD KIDNEY REMOVED. METASTATIC CANCER TO LUNGS., DIAGNOSED WITH HYPERTENSION, HEART DISEASE, CANCER MOTHER: ALIVE, HYPERTENSION, HEART DISEASE, OTHER, DIABETES SIBLINGS: 2 BROTHERS HAD BYPASS. SISTER HAS HEART ISSUES SINCE . 1 BROTHER HAD HYDROCELE. 2 BROTHER(S) , 5 SISTER(S) . 1 SON(S) , 1 DAUGHTER(S) - HEALTHY. FATHER-MEDISTATIC LUNG CA\\\\NMOTHER--HYPOTHYROID\\\\NOLDER BROTHER-STROKE\\\\NSON- ASTHMA. SOCIAL HISTORY GENERAL: TOBACCO USE ARE YOU A:FORMER SMOKER QUIT 2007 SMOKED FOR 33 YRS. 1 PACK PER DAY. LATEX QUESTIONNAIRE LATEX ALLERGY : HAVE YOU EVER DEVELOPED ANY TYPE OF REACTION AFTER HANDLING LATEX PRODUCTS SUCH RUBBER GLOVES, CONDOMS, DIAPHRAGMS, BALLOONS, SOCKS, OR UNDERWEAR?NO LATEX ALLERGY : HAVE YOU EVER DEVELOPED ANY TYPE OF REACTION DURING OR AFTER DENTAL APPOINTMENT, VAGINAL/RECTAL EXAMINATION, SURGICAL PROCEDURE, OR ANY OTHER EXPOSURE?NO LATEX RISK : HAVE YOU EVER HAD ANY DIFFICULTY BREATHING OR HIVES AFTER EATING OR HANDLING ANY FRUITS, OR VEGETABLES; SUCH KIWI, BANANAS, STONE FRUITS, OR CHESTNUTSNO LATEX RISK : DO YOU HAVE A PREVIOUS PERSONAL HISTORY OF MORE THAN NINE SURGERIES, SPINA BIFIDA, OR REPEATED CATHERTIZATIONS? NO LATEX RISK : ARE YOU FREQUENTLY EXPOSED TO LATEX PRODUCTS IN YOUR OCCUPATION?NO DATE ASKED : 01/10/2019 ALCOHOL SCREENING DID YOU HAVE A DRINK CONTAINING ALCOHOL IN THE PAST YEAR?NO POINTS0 INTERPRETATIONNEGATIVE RECREATIONAL DRUG USE DRUG USE?NO CAFFEINE CAFFEINE USE?NO SEXUAL HX HAD SEX IN THE LAST 12 MONTHS (VAGINAL, ORAL, OR ANAL)?NO HAVE YOU EVER HAD AN STD?NO BAPTISM [id number] BAPTISM LANGUAGE LANGUAGES SPOKEN:ROMANIAN EDUCATION LEVEL OF EDUCATION:COLLEGE LEARNING BARRIERS / SPECIAL NEEDS CHANGE FROM LAST VISIT?NO BARRIERS TO LEARNING?NO HEARING IMPAIRED?YES BILATERAL ONEIDA WORSE ON LEFT VISION IMPAIRED?YES COGNITIVELY IMPAIRED?NO :CORRECTIVE LENSES READINESS TO LEARN?YES LEARNING PREFERENCES?NO LEARNING CAPABILITIES PRESENT?YES EMOTIONAL BARRIERS?NO SPECIAL DEVICES?NO PARAKEET RAISER NEEDED?NO DOMESTIC VIOLENCE DO YOU FEEL SAFE IN YOUR ENVIRONMENT?YES EXERCISE: WALKS. MARITAL STATUS: .. PAIN CLINIC PFS, CLERGY, PUBLIC HEALTH REFERRALS PFS REFERRAL NEEDED?NO CLERGY REFERRAL NEEDED?NO PUBLIC HEALTH REFERRAL NEEDED?NO WAS THE PROVIDER NOTIFIED OF ANY PERTINENT INFO?YES HAS THE PATIENT BEEN EDUCATED REGARDING HIS/HER PLAN OF CARE?YES HAS THE PATIENT BEEN EDUCATED REGARDING PAIN, THE RISK FOR PAIN, THE IMPORTANCE OF EFFECTIVE PAIN MANAGEMENT, AND THE PAIN ASSESSMENT PROCESS?YES ADVANCE DIRECTIVE ADVANCE DIRECTIVE DISCUSSED WITH PATIENT:YES PT. HAS HCP CHILDREN 1. MARQUITA ARMSTRONG 2. KEVYN ROMAN [place] COPY ON FILE WITH HOSPITAL 05/09/18 REVIEWED WITH PT. 05/23/18 REVIEWED WITH PT LASREVIEWED WITH PATIENT 07/11/18 1346 JSREVIEWED WITH PATIENT 07/27/18 1108 JSREVIEWED WITH PATIENT 08/22/18 0911 JSREVIEWED WITH PATIENT 10/03/18 1335 BVREVIEWED WITH PATIENT 11/23/18 1215 LAS. HOSPITALIZATION/MAJOR DIAGNOSTIC PROCEDURE CHF 2008 DOG BITE 01/2015 RELATED TO SURGERIES [facility] VTAC 06/21/18 SURGERY RELATED 06/2018 REVIEW OF SYSTEMS REVIEWED BY: PROVIDER: . CONSTITUTIONAL: ANY CHANGE IN YOUR MEDICAL CONDITION? NO . CHILLS NO . FEVER NO . INFECTION: DO YOU HAVE NEW INFECTIONS? NO . DO YOU HAVE HISTORY OF MRSA? NO . MUSCULOSKELETAL: ANY NEW PATTERNS OF PAIN OR NUMBNESS? NO . GASTROENTEROLOGY: ANY NEW CHANGE IN BOWEL CONTROL? NO . GENITOURINARY: ANY NEW CHANGE IN BLADDER CONTROL? NO . IS THERE A CHANCE YOU COULD BE ? NO . HEMATOLOGY/LYMPH: DO YOU TAKE ANY BLOOD THINNERS? (FOR EXAMPLE- COUMADIN, PLAVIX, AGGRENOX, PLATEL, PRADAXA, OR XARELTO) NO . WHEN WAS YOUR LAST DOSE? DATE: TIME: . NEUROLOGY: HAVE YOU FALLEN IN THE PAST 12 MONTHS? NO . ANY NEW EXTREMITY NUMBNESS OR WEAKNESS? NO . CARDIOLOGY: DO YOU HAVE A PACEMAKER OR DEFIBRILLATOR? YES, AICD . RESPIRATORY: HAVE YOU BEEN SICK IN THE PAST WEEK? NO . FEVER NO . FLU LIKE SYMPTOMS? NO . COUGH NO . INTEGUMENTARY: DO YOU HAVE ANY RASHES OR OPEN SORES? NO . ALLERGIC/IMMUNO: ARE YOU ALLERGIC TO IV DYE? NO . ANY NEW ALLERGIES? NO . PSYCHIATRIC: DO YOU HAVE THOUGHTS OF HURTING YOURSELF OR SOMEONE ELSE? NO . ARE YOU ABUSED, NEGLECTED, OR IN AN UNSAFE ENVIRONMENT? NO . ENDOCRINOLOGY: ARE YOU DIABETIC? YES, FSBS 110 01/10/19 7AM . OTHER: DO YOU NEED ANY PRESCRIPTIONS? NO . IF YES, PLEASE LIST: ____ . ANY NEW PROBLEMS WITH YOUR MEDICATIONS? NO . WHEN DID YOU LAST EAT? 01/10 6AM . WHEN DID YOU LAST DRINK? 01/10 12NOON . WHAT DID YOU LAST DRINK? WATER . NAME OF PERSON DRIVING YOU HOME? KEVYN ROMAN . DO YOU HAVE ANY OTHER QUESTIONS OR CONCERNS NO . VITAL SIGNS WT 270.2 LBS, HT 72 IN, BMI 36.64 INDEX, BP 158/65 MM HG, HR 68 /MIN, RR 18 /MIN, TEMP 97.0 F, OXYGEN SAT % 94%, SAFE IN ENV? (Y/N) Y, NA INITIALS AW 1419, REVIEWED BY: KEESHA. ASSESSMENTS SACROILIITIS, NOT ELSEWHERE CLASSIFIED - M46.1 (PRIMARY) PROCEDURES PN WORKMANS' COMP OPINION IN YOUR OPINION, WAS THE INCIDENT THAT THE PATIENT DESCRIBED THE COMPETENT MEDICAL CAUSE OF THIS INJURY/ILLNESS? YES ARE THE PATIENT'S COMPLAINTS CONSISTENT WITH HIS/HER HISTORY OF THE INJURY/ILLNESS? YES IS THE PATIENT'S HISTORY OF THE INJURY/ILLNESS CONSISTENT WITH YOUR OBJECTIVE FINDING? YES WHAT IS THE PERCENTAGE OF TEMPORARY IMPAIRMENT? MODERATE TO MARKED = 66.7% IS THE PATIENT WORKING? NO DOCTOR ON SITE: THELMA NUNEZ MD PN SI PRE PROCEDURE DIAGNOSIS SACROILIITIS, SACROILIAC JOINT DYSFUNCTION POST PROCEDURE DIAGNOSIS SACROILIITIS, SACROILIAC JOINT DYSFUNCTION PROCEDURE BILATERAL SACROILIAC JOINT BLOCK SURGEON DR. THELMA BHARDWAJ CHALKER SOLES NONE ANESTHESIA LOCAL PRE PROCEDURE NOTE PATIENT WITH HISTORY OF CHRONIC LOW BACK PAIN. I EVALUATED THE PATIENT AND REVIEWED THE CHART. I WENT OVER THE RISKS, ALTERNATIVES, AND BENEFITS ASSOCIATED WITH THIS PROCEDURE. THE PATIENT WOULD LIKE TO PROCEED AND GAVE CONSENT TO PERFORM THE PROCEDURE. THE PATIENT DENIES UNEXPLAINABLE WEIGHT LOSS, FEVER, CHILLS, OR NEW CHANGES IN URINARY OR BOWEL CONTROL DESCRIPTION OF PROCEDURE THE PATIENT WAS BROUGHT TO THE PROCEDURE ROOM AND PLACED IN THE PRONE POSITION. THE LUMBOSACRAL AREA WAS CLEANED WITH CHLORAPREP SOLUTION AND DRAPED ASEPTICALLY. THE PROCEDURE WAS DONE UNDER STERILE CONDITIONS. I CHECKED LATERALITY AND THE LEVEL WHERE THE PROCEDURE WAS GOING TO BE PERFORMED WITH THE PATIENT AND THE SUPPORTING STAFF AT THE MOMENT OF THE TIME OUT IN THE PROCEDURE ROOM. UNDER FLUOROSCOPIC GUIDANCE, TARGET POINT WAS SELECTED AT THE LOWER BORDER OF THE RIGHT AND LEFT SACROILIAC JOINT. TARGET POINT WAS SELECTED AFTER MEDIAL ROTATION AND TILT OF THE MAGNIFIER OF THE C-ARM. LIDOCAINE WAS USED TO NUMB THE SKIN AND SUBCUTANEOUS TISSUE BELOW IT. A SPINAL NEEDLE, 22-GAUGE, WAS ADVANCED UNDER FLUOROSCOPIC GUIDANCE AND FOLLOWING PATIENT FEEDBACK UNTIL THE TARGET AREA WAS TOUCHED. THE POSITION OF THE NEEDLE WAS VERIFIED WITH AP AND LATERAL VIEWS. AFTER PROPER POSITION OF THE NEEDLE WAS ACHIEVED, ISOVUE M DYE 30%, 0.25 ML, WAS INJECTED SHOWING SPREAD OF THE DYE. THEN, A SOLUTION OF 20 MG OF KENALOG WAS INJECTED IN RIGHT JOINT WITH 3 ML OF BUPIVACAINE 0.125%. THERE WAS NO EVIDENCE OF BLOOD, PARESTHESIA OR CEREBROSPINAL FLUID DURING THE PROCEDURE. THE PATIENT WAS SENT TO THE RECOVERY ROOM. THE PATIENT WAS MOVING THE EXTREMITIES AND DOING WELL. THERE WAS NO COMPLICATION DURING THE PROCEDURE. FLUOROSCOPY TIME WAS 20 SECONDS POST PROCEDURE NOTE THE PATIENT WILL BE SEEN IN A FOLLOW UP IN THE NEXT FEW WEEKS. INSTRUCTIONS WERE GIVEN, QUESTIONS WERE ANSWERED, AND THE PATIENT EXPRESSED UNDERSTANDING AND AGREED WITH THE PLAN. I, MARCY TRAVIS, DOCUMENTED THE ABOVE INFORMATION ACTING A SCRIBE FOR DR. BHARDWAJ. I HAVE REVIEWED THE ABOVE DOCUMENT, WRITTEN BY MARCY DEE AND I VERIFY THAT IT IS ACCURATE. DIAGNOSTIC IMAGING [facility] FLUORO GUIDANCE (PAIN)[id number] PROCEDURE CODES 6045F RADXPS IN END [id number] PXD [id number] INJECT SACROILIAC JOINT, MODIFIERS: 50 DISPOSITION & COMMUNICATION FOLLOW UP 3 WEEKS ELECTRONICALLY SIGNED BY THELMA BHARDWAJ MD, MD ON 01/22/2019 AT 02:51 PM EDT DISCLAIMER : THIS IS A VISIT SUMMARY EXTRACTED FROM THE [employer] CHART. IT IS NOT A COPY OF THE [employer] PROGRESS NOTE. MTDD
== END ==
LOC: M PAIN 14:00
PROVIDERS: ATTEND Anesthesiology
DX: M46.1 Sacroiliitis, not elsewhere classified (principal); J44.9 Chronic obstructive pulmonary disease, unspecified; I50.42 Chronic combined systolic (congestive) and diastolic (congestive) heart failure; I11.0 Hypertensive heart disease with heart failure; K21.9 Gastro-esophageal reflux disease without esophagitis; M25.561 Pain in right knee; R42 Dizziness and giddiness; E66.9 Obesity, unspecified; F10.11 Alcohol abuse, in remission; Z95.0 Presence of cardiac pacemaker; Z96.651 Presence of right artificial knee joint; Z79.84 Long term (current) use of oral hypoglycemic drugs; Z79.899 Other long term (current) drug therapy; Z79.891 Long term (current) use of opiate analgesic; Z87.891 Personal history of nicotine dependence; Z88.6 Allergy status to analgesic agent; Z88.8 Allergy status to other drugs, medicaments and biological substances; Z91.018 Allergy to other foods; Z91.048 Other nonmedicinal substance allergy status
CPT/HCPCS: G0260; J3301; Q9967

== ENCOUNTER → 2019-01-18 | Outpatient (CLI) | payer OTHER ==
[~2019-01-18] MED LIST changes: -BUPIVACAINE HCL 0.25% 30 ML VIAL As Ordered ONE; -ISOVUE-M 300 61% 15ML VIAL (Q9967) As Ordered ONE; -LIDOCAINE 1% SDV INJ 30 ML VIAL As Ordered ONE; -TRIAMCINOLONE ACETONIDE SUSP 40 MG/ML VIAL (J3301) As Ordered ONE
== END ==
LOC: M LAB 12:28
PROVIDERS: ATTEND Student in an Organized Health Care Education/Training Program
DX: E55.9 Vitamin D deficiency, unspecified (principal)

== ENCOUNTER → 2019-02-02 | Outpatient (CLI) | payer OTHER ==
[2019-02-02 13:26] LABS: THYROID STIMULATING HORMONE 3.3 uIU/ML (0.358-3.740); TOTAL 25(OH) VITAMIN D 42.8 NG/ML (30.0-100.0)
== END ==
LOC: M LAB 10:54
PROVIDERS: ATTEND Student in an Organized Health Care Education/Training Program
DX: E03.9 Hypothyroidism, unspecified (principal); E55.9 Vitamin D deficiency, unspecified

== ENCOUNTER → 2019-02-16 | Outpatient (CLI) | payer OTHER ==
--- NOTE | 2019-03-04 00:38 | ECWPNPC ---
PATIENT NAME: CAMILO ARMSTRONG : 1960 GENDER: MALE VISIT DATE: 02/16/2019 DISCHARGE DATE: 02/16/19 1037 VISIT LOCKED DATE TIME: PHYSICIAN: THELMA BHARDWAJ MD RESOURCE: THELMA BHARDWAJ MD REASON FOR APPOINTMENT 1. NCA WC POST PROC HISTORY OF PRESENT ILLNESS HISTORY OF PRESENT ILLNESS: PAIN THE PATIENT DESCRIBES THE PAIN... 59 YEAR OLD MALE PATIENT WITH A HISTORY OF CHRONIC THORACIC PAIN. THE PATIENT DESCRIBES THE PAIN SORE, TENDER, SHARP, STABBING, SHOOTING, AND CONTINUOUS WITH A PAIN SCORE OF 6-9/10 DEPENDING ON PHYSICAL ACTIVITY. 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 THE PATIENT RECEIVED A TRIGGER POINT INJECTION ON 11/23/2018 AND REPORTS HAVING OVER 2 MONTHS OF MORE THAN 80% PAIN RELIEF WITH AN INCREASE OF MOBILITY AND FUNCTIONALITY. THE PATIENT SAYS THAT HIS PAIN STARTED TO RETURN A FEW WEEKS AGO AFTER SLEEPING ON A DIFFERENT BED. THE PATIENT SAYS HE HAS DIFFICULTY DOING DAILY ACTIVITIES SUCH COOKING, CLEANING, AND GETTING GROCERIES DUE TO THIS PAIN. PATIENT DENIES UNEXPLAINABLE WEIGHT LOSS, FEVER, CHILLS, NEW CHANGES ON HIS URINARY OR BOWEL CONTROL. FALL RISK SCREENING: SCREENING :NO FALLS REPORTED IN THE LAST YEAR CURRENT MEDICATIONS TAKING ZYRTEC 10 MG TABLET 1 TABLET ORALLY ONCE A DAY TAKING METFORMIN HCL 500 MG TABLET DIRECTED ORALLY 500 MG IN AM AND 1000MG AT DINNER TAKING OMEPRAZOLE 40 MG CAPSULE DELAYED RELEASE 1 CAPSULE ORALLY ONCE A DAY TAKING LISINOPRIL 2.5MG TABLET 1 TAB ORALLY AT BEDTIME TAKING ASPIRIN 81 MG TABLET DELAYED RELEASE 1 TAB ORALLY DAILY TAKING LIPITOR 80 MG TABLET 1 TABLET ORALLY ONCE A DAY AT BEDTIME TAKING NASACORT AQ 55 MCG/ACT AEROSOL 1 PUFF IN EACH NOSTRIL NASALLY ONCE A DAY TAKING ADVAIR DISKUS 250-50 MCG/DOSE MISCELLANEOUS 1 INHALATION. ALWAYS RINSE YOUR MOUTH OUT AFTER USE DAILY TAKING VENTOLIN HFA 108 (90 BASE) MCG/ACT AEROSOL SOLUTION 2 PUFFS INHALATION EVERY 4-6 HOURS NEEDED TAKING NITROSTAT 0.4 MG TABLET SUBLINGUAL 1 TAB SUBLINGUAL TAB1 TAB FOR CHEST PAIN IF NO RELIEF IN 5 MINUTES TAKE 2ND NITRO IF NO RELIEF AFTER 5 MINUTES TAKE 3RD NITRO ER TAKING MIRALAX 17 GM POWDER 17GM ORALLY DAILY NEEDED TAKING MAGNESIUM 64 MG CAPSULE 1 TAB ORALLY BID TAKING MULTIVITAMINS 1 TABLET DIRECTED ORALLY DAILY TAKING ZONISAMIDE 100 MG CAPSULE 1 CAP ORALLY ONCE DAILY TAKING ALDACTONE 25 MG TABLET 1/2 TAB ORALLY DAILY TAKING LASIX 40 MG TABLET 1 TAB ORALLY BID NEEDED TAKING ATENOLOL 50 MG TABLET 1 TABLET ORALLY BID TAKING AMIODARONE HCL 200 MG TABLET 1 TABLET ORALLY BID TAKING POTASSIUM CHLORIDE ER 20 MEQ TABLET EXTENDED RELEASE 1 TABLET WITH FOOD ORALLY BID TAKING AVODART 0.5 MG CAPSULE 1 CAPSULE ORALLY ONCE A DAY TAKING VITAMIN D-3 5000 UNIT TABLET 1 TABLET ORALLY ONCE A DAY TAKING COLACE 100 MG CAPSULE 1 CAPSULE ORALLY TWICE DAILY TAKING MECLIZINE HCL 25 MG TABLET 1 TABLET ORALLY DAILY AND 2 TABS NEEDED TAKING TRAMADOL HCL ER 100 MG TABLET EXTENDED RELEASE 24 HOUR 1 TABLET ORALLY ONCE A DAY MDD=1 TAKING GABAPENTIN 400 MG CAPSULE 1 CAPSULE ORALLY FOUR TIMES DAILY MDD4 TAKING LEVOTHYROXINE SODIUM 25 MCG TABLET TAKE ONE TABLET BY MOUTH EVERY MORNING ON AN EMPTY STOMACH ORALLY ONCE A DAY TAKING OXYCODONE-ACETAMINOPHEN 10-325 MG TABLET (SCHEDULE II DRUG) TAKE ONE TABLET BY MOUTH EVERY 4 HOURS NEEDED FOR PAIN AFTER SURGERY MAXIMUM DAILY DOSE SIX TABLETS ORAL TAKING OXYBUTYNIN CHLORIDE ER 5 MG TABLET EXTENDED RELEASE 24 HOUR 1 TABLET ORALLY ONCE A DAY TAKING DETROL 2 MG TABLET 1 TABLET ORALLY TWICE A DAY TAKING PERCOCET 5-325 MG TABLET 1 TABLET ORALLY Q 4 HRS PRN PAIN MDD=5 TAKING TIZANIDINE HCL 2 MG TABLET 1 TABLET NEEDED ORALLY FOR SPASMS AND PAIN EVERY 6 HOURS NEEDED MDD3 TAKING FLOMAX 0.4 MG CAPSULE EXTENDED RELEASE 24 HOUR 2 CAPSULE 30 MINUTES AFTER THE SAME MEAL EACH DAY ONCE A DAY TAKING DRISDOL 41540 UNIT CAPSULE 1 CAPSULE ORALLY EVERY OTHER WEEK NOT-TAKING VITAMIN D3 2000 UNITS TABLET 1 TAB ORALLY ONCE A DAY NOT-TAKING VENLAFAXINE HCL ER 37.5 MG CAPSULE EXTENDED RELEASE 24 HOUR 1 CAP ORALLY ONCE DAILY NOT-TAKING SKELAXIN 800 MG TABLET 1 TABLET ORALLY FOUR TIMES DAY WORKMEN COMP NOT-TAKING TAMSULOSIN HCL 0.4 MG CAPSULE 1 CAPSULE 30 MINUTES AFTER THE SAME MEAL EACH DAY ORALLY ONCE A DAY NOT-TAKING XARELTO 10 MG TABLET 1 TABLET WITH FOOD ORALLY ONCE A DAY NOT-TAKING COREG 12.5MG TABLET 1 TAB ORALLY TWICE DAILY NOT-TAKING CYMBALTA 20 MG CAPSULE DELAYED RELEASE PARTICLES 1 CAPSULE ORALLY ONCE A DAY DISCONTINUED ADVAIR DISKUS 250-50 MCG/DOSE AEROSOL POWDER BREATH ACTIVATED INHALE ONE PUFF BY MOUTH EVERY DAY RISNE MOUTH AFTER USE MEDICATION LIST REVIEWED AND RECONCILED WITH THE PATIENT PAST MEDICAL HISTORY COPD- SPIROMETRY- 02/05/14- DECLINES AT THIS TIME CHF (SYSTOLIC AND DIASTOLIC)- CANNY HYPERLIPIDEMIA HYPERTENSION GERD CHRONIC LOW BACK PAIN- W COMP- DR BOJORQUEZ- CHRONIC PAIN MEDS PER [facility] PAIN MANAGEMENT. CHRONIC RT KNEE PAIN VERTIGO (SINCE 1990) OBESITY H/O HEAVY ALCOHOL USE (IN REMISSION) ASCVD 10-YEAR RISK IS 3.6% IN HTE COLONOSCOPY 2009 BILATERAL HYDROCELE EPIDIDYMITIS CYST RIGHT HEPTITIS B (FROM BLOOD TRANSFUSION) PACEMAKER DEFIBRILLATOR 04/2018 HEART MONITOR -WEARING FOR 1 MONTH - V-TACH V-TAC HOSP 06/21/2018 DENSE LIPMA ALLERGIES RED DYE: RASH - ALLERGY TOMATO: NAUSEA/VOMITING - ALLERGY FINASTERIDE: FLARED CHF - CONTRAINDICATION NSAIDS: CONGESTIVE FAILURE - CONTRAINDICATION VOLTAREN: GEL/ SPASMS/PAIN - ALLERGY LYRICA: CHF - CONTRAINDICATION SURGICAL HISTORY NO PERSONAL OR FHX SEVERE REACTION TO ANESTHESIA R HUMERUS FIXATION 1972 R MEDIAL MENISCECTOMY 1981 DRAINAGE OF R NECK ? PERITONSILAR ABSCESS 1996 S/P AICD PLACMENT 2007 L4-S1 SPINAL DECOMPRESSION WITH INSTRUMENTED POSTERIOR AND INTERBODY FUSION. DUROTOMY REPAIR. (TIMOTHY @ [facility]) 03/2011 EGD-REINDL NML 03/13/10 COLONOSCOPY- REINDL. DIVERTICULOSIS- REPEAT 5-10 YEARS 03/13/10 RIGHT KNEE SURGERY BY ORTHO 02/05 NEW ICD 12/29/16 MASS [id number] AGAIN 02/2018 REMOVAL TUMOR LEFT THORACIC 02/27/18 RIGHT KNEE REPLACEMENT 06/2018 REMOVAL OF TUMOR RIGHT BACK- DR. KAUFMAN 11/24/18 FAMILY HISTORY FATHER: ALIVE, BYPASS. KIDNEY CANCER HAD KIDNEY REMOVED. METASTATIC CANCER TO LUNGS., DIAGNOSED WITH HYPERTENSION, HEART DISEASE, CANCER MOTHER: ALIVE, OTHER, DIABETES, HYPERTENSION, HEART DISEASE SIBLINGS: 2 BROTHERS HAD BYPASS. SISTER HAS HEART ISSUES SINCE . 1 BROTHER HAD HYDROCELE. 2 BROTHER(S) , 5 SISTER(S) . 1 SON(S) , 1 DAUGHTER(S) - HEALTHY. FATHER-MEDISTATIC LUNG CA\\\\NMOTHER--HYPOTHYROID\\\\NOLDER BROTHER-STROKE\\\\NSON- ASTHMA. SOCIAL HISTORY GENERAL: TOBACCO USE ARE YOU A:FORMER SMOKER QUIT 2008 SMOKED FOR 33 YRS. 1 PACK PER DAY. EDUCATION LEVEL OF EDUCATION:COLLEGE LANGUAGE LANGUAGES SPOKEN:PERSIAN DOMESTIC VIOLENCE DO YOU FEEL SAFE IN YOUR ENVIRONMENT?YES RECREATIONAL DRUG USE DRUG USE?NO EXERCISE: WALKS. LEARNING BARRIERS / SPECIAL NEEDS CHANGE FROM LAST VISIT?NO BARRIERS TO LEARNING?NO HEARING IMPAIRED?YES BILATERAL PRAIRIE BAND WORSE ON LEFT VISION IMPAIRED?YES COGNITIVELY IMPAIRED?NO :CORRECTIVE LENSES READINESS TO LEARN?YES LEARNING PREFERENCES?NO LEARNING CAPABILITIES PRESENT?YES EMOTIONAL BARRIERS?NO SPECIAL DEVICES?NO PROCESS IMPROVEMENT MANAGER NEEDED?NO PAIN CLINIC PFS, CLERGY, PUBLIC HEALTH REFERRALS PFS REFERRAL NEEDED?NO CLERGY REFERRAL NEEDED?NO PUBLIC HEALTH REFERRAL NEEDED?NO WAS THE PROVIDER NOTIFIED OF ANY PERTINENT INFO?YES HAS THE PATIENT BEEN EDUCATED REGARDING HIS/HER PLAN OF CARE?YES HAS THE PATIENT BEEN EDUCATED REGARDING PAIN, THE RISK FOR PAIN, THE IMPORTANCE OF EFFECTIVE PAIN MANAGEMENT, AND THE PAIN ASSESSMENT PROCESS?YES LATEX QUESTIONNAIRE LATEX ALLERGY : HAVE YOU EVER DEVELOPED ANY TYPE OF REACTION AFTER HANDLING LATEX PRODUCTS SUCH RUBBER GLOVES, CONDOMS, DIAPHRAGMS, BALLOONS, SOCKS, OR UNDERWEAR?NO LATEX ALLERGY : HAVE YOU EVER DEVELOPED ANY TYPE OF REACTION DURING OR AFTER DENTAL APPOINTMENT, VAGINAL/RECTAL EXAMINATION, SURGICAL PROCEDURE, OR ANY OTHER EXPOSURE?NO DATE ASKED : 01/10/2019 LATEX RISK : HAVE YOU EVER HAD ANY DIFFICULTY BREATHING OR HIVES AFTER EATING OR HANDLING ANY FRUITS, OR VEGETABLES; SUCH KIWI, BANANAS, STONE FRUITS, OR CHESTNUTSNO LATEX RISK : DO YOU HAVE A PREVIOUS PERSONAL HISTORY OF MORE THAN NINE SURGERIES, SPINA BIFIDA, OR REPEATED CATHERTIZATIONS? NO LATEX RISK : ARE YOU FREQUENTLY EXPOSED TO LATEX PRODUCTS IN YOUR OCCUPATION?NO CAFFEINE CAFFEINE USE?NO ADVANCE DIRECTIVE ADVANCE DIRECTIVE DISCUSSED WITH PATIENT:YES PT. HAS HCP CHILDREN 1. MARQUITA ARMSTRONG 2. [place] COPY ON FILE WITH [facility] [id number] EPISCOPALIAN MARITAL STATUS: .. ALCOHOL SCREENING DID YOU HAVE A DRINK CONTAINING ALCOHOL IN THE PAST YEAR?NO POINTS0 INTERPRETATIONNEGATIVE SEXUAL HX HAD SEX IN THE LAST 12 MONTHS (VAGINAL, ORAL, OR ANAL)?NO HAVE YOU EVER HAD AN STD?NO 05/09/18 REVIEWED WITH PT. 05/23/18 REVIEWED WITH PT LASREVIEWED WITH PATIENT 10/16/18 1346 JSREVIEWED WITH PATIENT 07/27/18 1108 JSREVIEWED WITH PATIENT 08/22/18 0911 JSREVIEWED WITH PATIENT 10/03/18 1335 BVREVIEWED WITH PATIENT 11/23/18 1215 LAS. HOSPITALIZATION/MAJOR DIAGNOSTIC PROCEDURE CHF 2008 DOG BITE 01/2015 RELATED TO SURGERIES [facility] VTAC 06/21/18 SURGERY RELATED 06/2018 REVIEW OF SYSTEMS REVIEWED BY: PROVIDER: THELMA BHARDWAJ MD . CONSTITUTIONAL: ANY CHANGE IN YOUR MEDICAL CONDITION? NO . CHILLS NO . FEVER NO . INFECTION: DO YOU HAVE NEW INFECTIONS? NO . DO YOU HAVE HISTORY OF MRSA? NO . MUSCULOSKELETAL: ANY NEW PATTERNS OF PAIN OR NUMBNESS? NO . GASTROENTEROLOGY: ANY NEW CHANGE IN BOWEL CONTROL? NO . GENITOURINARY: ANY NEW CHANGE IN BLADDER CONTROL? NO . IS THERE A CHANCE YOU COULD BE ? NO . HEMATOLOGY/LYMPH: DO YOU TAKE ANY BLOOD THINNERS? (FOR EXAMPLE- COUMADIN, PLAVIX, AGGRENOX, PLATEL, PRADAXA, OR XARELTO) NO . WHEN WAS YOUR LAST DOSE? DATE: TIME: . NEUROLOGY: HAVE YOU FALLEN IN THE PAST 12 MONTHS? NO . ANY NEW EXTREMITY NUMBNESS OR WEAKNESS? NO . CARDIOLOGY: DO YOU HAVE A PACEMAKER OR DEFIBRILLATOR? YES, PACEMAKER . RESPIRATORY: HAVE YOU BEEN SICK IN THE PAST WEEK? NO . FEVER NO . FLU LIKE SYMPTOMS? NO . COUGH NO . INTEGUMENTARY: DO YOU HAVE ANY RASHES OR OPEN SORES? NO . ALLERGIC/IMMUNO: ARE YOU ALLERGIC TO IV DYE? NO . ANY NEW ALLERGIES? NO . PSYCHIATRIC: DO YOU HAVE THOUGHTS OF HURTING YOURSELF OR SOMEONE ELSE? NO . ARE YOU ABUSED, NEGLECTED, OR IN AN UNSAFE ENVIRONMENT? NO . ENDOCRINOLOGY: ARE YOU DIABETIC? YES . OTHER: DO YOU NEED ANY PRESCRIPTIONS? YES, ROBERTA . IF YES, PLEASE LIST: ____ . ANY NEW PROBLEMS WITH YOUR MEDICATIONS? NO . WHEN DID YOU LAST EAT? ____ . WHEN DID YOU LAST DRINK? ____ . WHAT DID YOU LAST DRINK? ____ . NAME OF PERSON DRIVING YOU HOME? ____ . DO YOU HAVE ANY OTHER QUESTIONS OR CONCERNS NO . VITAL SIGNS WT 268 LBS, HT 72 IN, BMI 36.34 INDEX, BP 129/65 MM HG, HR 62 /MIN, RR 16 /MIN, TEMP 96.9 F, OXYGEN SAT % 96, REVIEWED BY: EM. EXAMINATION GENERAL EXAMINATION: PATIENT IS ALERT O X 3 AND COOPERATIVE. TENDERNESS IN THE THORACIC AREA. PRESENCE OF TRIGGER POINTS AND BANDS OF TISSUE WITH RESTRICTION OF MOVEMENT OF THE BACK. ASSESSMENTS MYALGIA, OTHER SITE - M79.18 (PRIMARY) TREATMENT MYALGIA, OTHER SITE CLINICAL NOTES: WE DISCUSSED SEVERAL ISSUES WITH MR. ARMSTRONG'S PAIN MANAGEMENT CASE. DUE TO THE TRIGGER POINTS, BANDS OF TISSUE, AND RESTRICTION OF MOVEMENT, I WOULD LIKE TO MOVE FORWARD WITH A TRIGGER POINT INJECTION AT THIS TIME. WE DISCUSSED THE BENEFITS, RISKS, AND ALTERNATIVES OF THE INJECTION AND THE PATIENT WOULD LIKE TO PROCEED. THE PATIENT WILL FOLLOW UP A FEW WEEKS AFTER THE INJECTION. INSTRUCTIONS WERE GIVEN, QUESTIONS WERE ANSWERED, PATIENT REPORTS UNDERSTANDING AND AGREES WITH THE PLAN. I, RAYO ABRAMS, DOCUMENTED THE ABOVE INFORMATION ACTING A SCRIBE FOR DR. BHARDWAJ. I HAVE REVIEWED THE ABOVE DOCUMENT, WRITTEN BY RAYO DANIBWillard AND I VERIFY THAT IT IS ACCURATE. . PROCEDURES PN WORKMANS' COMP OPINION IN YOUR OPINION, WAS THE INCIDENT THAT THE PATIENT DESCRIBED THE COMPETENT MEDICAL CAUSE OF THIS INJURY/ILLNESS? YES ARE THE PATIENT'S COMPLAINTS CONSISTENT WITH HIS/HER HISTORY OF THE INJURY/ILLNESS? YES IS THE PATIENT'S HISTORY OF THE INJURY/ILLNESS CONSISTENT WITH YOUR OBJECTIVE FINDING? YES WHAT IS THE PERCENTAGE OF TEMPORARY IMPAIRMENT? MODERATE TO MARKED = 66.7% IS THE PATIENT WORKING? NO DOCTOR ON SITE: THELMA NUNEZ MD PREVENTIVE MEDICINE PAIN CLINIC TEACHING: PROCEDURE TEACHING REVIEWED INFORMATION ON TRIGGER POINT INJECTION PROCEDURE WITH PATIENT. ALSO REVIEWED PRE-PROCEDURE INSTRUCTIONS. PATIENT VERBALIZED AN UNDERSTANDING. NAEEM OLEARY 02/16/2019 10:44:48 AM > . PROCEDURE CODES FA211 ESTABILISHED PATIENT [facility] FACILITY CHARGE G8427 CURRENT MEDS W/DOSAGES DOCUMENTED G8730 PAIN ASSESS POS TOOL F/U PLAN DOC DISPOSITION & COMMUNICATION FOLLOW UP REQUESTING TPI ELECTRONICALLY SIGNED BY THELMA BHARDWAJ MD, MD ON 03/03/2019 AT 04:53 PM EDT DISCLAIMER : THIS IS A VISIT SUMMARY EXTRACTED FROM THE [employer] CHART. IT IS NOT A COPY OF THE [employer] PROGRESS NOTE. JULIETA
== END ==
LOC: M PAIN 09:15
PROVIDERS: ATTEND Anesthesiology
DX: M79.18 Myalgia, other site (principal); J44.9 Chronic obstructive pulmonary disease, unspecified; E11.9 Type 2 diabetes mellitus without complications; E78.5 Hyperlipidemia, unspecified; I10 Essential (primary) hypertension; K21.9 Gastro-esophageal reflux disease without esophagitis; Z86.69 Personal history of other diseases of the nervous system and sense organs; Z95.0 Presence of cardiac pacemaker; Z87.891 Personal history of nicotine dependence; Z88.5 Allergy status to narcotic agent; Z88.6 Allergy status to analgesic agent; Z88.8 Allergy status to other drugs, medicaments and biological substances; Z91.018 Allergy to other foods; Z91.02 Food additives allergy status; Z79.84 Long term (current) use of oral hypoglycemic drugs; Z79.82 Long term (current) use of aspirin; Z79.891 Long term (current) use of opiate analgesic; Z79.899 Other long term (current) drug therapy

== ENCOUNTER → 2019-02-20 | Outpatient (CLI) | payer OTHER ==
--- NOTE | 2019-02-20 12:22 | REP ---
BILATERAL LOWER EXTREMITY DUPLEX DOPPLER ARTERIAL ULTRASOUND: Real-time ultrasound evaluation and duplex Doppler interrogation of bilateral lower extremity arterial system is performed. There is mild to moderate scattered plaquing bilaterally diffusely. There is no definite hemodynamically significant stenosis of the bilateral lower extremity arterial systems. Biphasic and triphasic waveforms are seen throughout both lower extremities and there are relatively normal flow velocities as well. KADI both on the right and the left is 1.0. Right Peak Left Peak Systolic Velocity Systolic velocity Common femoral artery 133.5 cm/s 1133.6 cm/s Profunda 45.5 cm/s 77.7 cm/s Proximal SFA 168.9 cm/s 11.1 cm/s Mid SFA 142.3 cm/s 105.5 cm/s Distal SFA 107.3 cm/s 114.8 cm/s Popliteal 60.9 cm/s 55.1 cm/s Proximal DAE 38.6 cm/s 29.8 cm/s Tibial peroneal trunk 50.6 cm/s 47.3 cm/s Proximal FEEDER WORKER POWER UNIT OPERATOR 51.2 cm/s 55.1 cm/s Distal FEEDER WORKER POWER UNIT OPERATOR 96.2 cm/s 84.6 cm/s Distal DAE 33.1 cm/s 51.0 cm/s IMPRESSION: Mild to moderate diffuse plaquing and narrowing of bilateral lower extremity arterial systems with no hemodynamically significant stenosis identified. Electronically Signed by Pillo Aguilar MD 02/20/2019 04:16 P
== END ==
LOC: M RAD 08:53
PROVIDERS: ATTEND Surgery Vascular Surgery
DX: M79.604 Pain in right leg (principal); M79.605 Pain in left leg; I70.203 Unspecified atherosclerosis of native arteries of extremities, bilateral legs

== ENCOUNTER → 2019-03-07 | Outpatient (CLI) | payer OTHER ==
[~2019-03-07] MED LIST changes: +BUPIVACAINE HCL 0.5% 10 ML VIAL As Ordered ONE; -DULO1CAP PO; +DULO1CAP4 PO; +HEPARIN 1,000 UNITS/ML 10ML VIAL (FOR RADIOLOGY& DIALYSIS ONLY) As Ordered ONE; +ISOVUE-300 61% 50ML VIAL (Q9967) As Ordered ONE; +LIDOCAINE 2% MDV 20 ML VIAL As Ordered ONE; +MIDAZOLAM INJ 2 MG/2 ML VIAL (J2250) As Ordered ONE; +diphenhydrAMINE INJ 50MG/ML VIAL (J1200) As Ordered ONE; +fentaNYL 100 MCG/2 ML INJECTION (J3010) As Ordered ONE
--- NOTE | 2019-04-04 14:25 | REPIR ---
DATE OF PROCEDURE: 03/07/2019 ATTENDING SURGEON: Dr. Robert Monae ASSISTANTS: Delaney Rodriguez. PREOPERATIVE DIAGNOSIS: Right lower extremity pain status post right total knee arthroplasty. POSTOPERATIVE DIAGNOSIS: Right lower extremity pain status post right total knee arthroplasty. PROCEDURE: Aortogram, iliofemoral angiogram, selective right common femoral artery catheter placement with right lower extremity angiogram, selective right superficial femoral artery catheter placement of the right lower extremity angiogram, Mynx closure of the left common femoral arteriotomy. INDICATION: The patient is a 59-year-old male with right lower extremity pain and diminished pulses in the right foot. The patient will undergo an angiogram with possible angioplasty stent and/or atherectomy. ANESTHESIA: Local with 10 mL of 2% lidocaine mixed 0.5% Marcaine. FLUOROSCOPY TIME: 3.8 minutes. CONTRAST: 14.5 mL. HEPARIN: None. COMPLICATIONS: None. DRAINS: None. SPECIMENS: None. IMPLANTS: None. DESCRIPTION OF PROCEDURE: The patient was taken to the angiography suite, placed supine on the angiography room table and the left common femoral artery was cannulated. An aortogram, iliofemoral angiogram and selective right common femoral artery and right superficial femoral artery angiograms were performed showing no intervention required. Catheters and wires were removed. The sheaths were removed and Mynx closure device used to close the arteriotomy with an additional 10 minutes of adjunctive pressure applied for hemostasis. Dressings were then applied. The patient tolerated procedure well. All instrument, sponge, and needle counts were correct at the end the case. There were no complications. Dr. Monae was present for and directed the entire case. The patient was transferred to the holding area and subsequently discharged in stable condition.
== END ==
LOC: M IRPRO 08:22
PROVIDERS: ATTEND Surgery Vascular Surgery
DX: M79.661 Pain in right lower leg (principal); I25.10 Atherosclerotic heart disease of native coronary artery without angina pectoris; I50.9 Heart failure, unspecified; J44.9 Chronic obstructive pulmonary disease, unspecified; E11.9 Type 2 diabetes mellitus without complications; I11.0 Hypertensive heart disease with heart failure; E03.9 Hypothyroidism, unspecified; E78.5 Hyperlipidemia, unspecified; N40.0 Benign prostatic hyperplasia without lower urinary tract symptoms; M79.7 Fibromyalgia; I87.2 Venous insufficiency (chronic) (peripheral); Z96.651 Presence of right artificial knee joint
CPT/HCPCS: 36246; 75710; C1760; C1769; C1887; C1894; G0269; J2250; J3010; Q9967

== ENCOUNTER → 2019-03-15 | Outpatient (CLI) | payer OTHER ==
[~2019-03-15] MED LIST changes: -BUPIVACAINE HCL 0.5% 10 ML VIAL As Ordered ONE; +DULO1CAP PO; -DULO1CAP4 PO; -HEPARIN 1,000 UNITS/ML 10ML VIAL (FOR RADIOLOGY& DIALYSIS ONLY) As Ordered ONE; -ISOVUE-300 61% 50ML VIAL (Q9967) As Ordered ONE; -LIDOCAINE 2% MDV 20 ML VIAL As Ordered ONE; -MIDAZOLAM INJ 2 MG/2 ML VIAL (J2250) As Ordered ONE; -diphenhydrAMINE INJ 50MG/ML VIAL (J1200) As Ordered ONE; -fentaNYL 100 MCG/2 ML INJECTION (J3010) As Ordered ONE
[2019-03-15 15:33] LABS: HEMOGLOBIN A1c 6.5 %
[2019-03-15 16:04] LABS: MALB URINE SIEMENS 72.7 MG/L; MAU/CREAT RATIO 20.6 MCG/MG (0.0-30.0)
== END ==
LOC: M LAB 14:45
PROVIDERS: ATTEND Student in an Organized Health Care Education/Training Program
DX: E11.9 Type 2 diabetes mellitus without complications (principal)

== ENCOUNTER → 2019-03-26 | Outpatient (CLI) | payer OTHER ==
[~2019-03-26] MED LIST changes: -DULO1CAP PO; +DULO1CAP4 PO
--- NOTE | 2019-04-06 01:13 | ECWPNPC ---
PATIENT NAME: CAMILO ARMSTRONG : 1960 GENDER: MALE VISIT DATE: 03/26/2019 DISCHARGE DATE: 03/26/19 1134 VISIT LOCKED DATE TIME: PHYSICIAN: THELMA BHARDWAJ MD RESOURCE: THELMA BHARDWAJ MD REASON FOR APPOINTMENT 1. WC POST [id number] HISTORY OF PRESENT ILLNESS HISTORY OF PRESENT ILLNESS: PAIN THE PATIENT DESCRIBES THE PAIN... 59 YEAR OLD MALE PATIENT WITH A HISTORY OF CHRONIC LOW BACK PAIN. THE PATIENT DESCRIBES THE PAIN ACHING, STABBING, SHARP, AND CONTINUOUS WITH A PAIN SCORE OF 5-8/10 DEPENDING ON PHYSICAL ACTIVITY. 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 THE PATIENT SAYS HE IS EXPERIENCING SOME DISCOMFORT, PAIN, AND SPASTICITY IN HIS BACK. THE PATIENT RECEIVED A BILATERAL SACROILIAC JOINT BLOCK THAT HE SAYS IS STILL WORKING FOR HIM. THE PATIENT SAYS HIS CURRENT MEDICATION REGIMEN OF TRAMADOL AND PERCOCET FOR SOMATIC PAIN, GABAPENTIN FOR NEUROPATHIC PAIN, AND TIZANIDINE FOR SPASTICITY IS HELPING HIM REMAIN MOBILE AND FUNCTIONAL. THE PATIENT SAYS THE PAIN IS AFFECTING HIS ABILITY TO PERFORM HIS DAILY ACTIVITIES SUCH CLEANING, COOKING, AND GROCERY SHOPPING. PATIENT DENIES UNEXPLAINABLE WEIGHT LOSS, FEVER, CHILLS, NEW CHANGES ON HIS URINARY OR BOWEL CONTROL. FALL RISK SCREENING: SCREENING :NO FALLS REPORTED IN THE LAST YEAR CURRENT MEDICATIONS TAKING ZYRTEC 10 MG TABLET 1 TABLET ORALLY ONCE A DAY TAKING METFORMIN HCL 500 MG TABLET DIRECTED ORALLY 500 MG IN AM AND 1000MG AT DINNER TAKING OMEPRAZOLE 40 MG CAPSULE DELAYED RELEASE 1 CAPSULE ORALLY ONCE A DAY TAKING LISINOPRIL 2.5MG TABLET 1 TAB ORALLY AT BEDTIME TAKING ASPIRIN 81 MG TABLET DELAYED RELEASE 1 TAB ORALLY DAILY TAKING LIPITOR 80 MG TABLET 1 TABLET ORALLY ONCE A DAY AT BEDTIME TAKING NASACORT AQ 55 MCG/ACT AEROSOL 1 PUFF IN EACH NOSTRIL NASALLY ONCE A DAY TAKING ADVAIR DISKUS 250-50 MCG/DOSE MISCELLANEOUS 1 INHALATION. ALWAYS RINSE YOUR MOUTH OUT AFTER USE DAILY TAKING VENTOLIN HFA 108 (90 BASE) MCG/ACT AEROSOL SOLUTION 2 PUFFS INHALATION EVERY 4-6 HOURS NEEDED TAKING NITROSTAT 0.4 MG TABLET SUBLINGUAL 1 TAB SUBLINGUAL TAB1 TAB FOR CHEST PAIN IF NO RELIEF IN 5 MINUTES TAKE 2ND NITRO IF NO RELIEF AFTER 5 MINUTES TAKE 3RD NITRO ER TAKING MIRALAX 17 GM POWDER 17GM ORALLY DAILY NEEDED TAKING MAGNESIUM 64 MG CAPSULE 1 TAB ORALLY BID TAKING MULTIVITAMINS 1 TABLET DIRECTED ORALLY DAILY TAKING ZONISAMIDE 50 MG CAPSULE 1 CAP ORALLY ONCE DAILY TAKING ALDACTONE 25 MG TABLET 1/2 TAB ORALLY DAILY TAKING LASIX 40 MG TABLET 1 TAB ORALLY BID NEEDED TAKING ATENOLOL 50 MG TABLET 1 TABLET ORALLY BID TAKING AMIODARONE HCL 200 MG TABLET 1 TABLET ORALLY BID TAKING POTASSIUM CHLORIDE ER 20 MEQ TABLET EXTENDED RELEASE 1 TABLET WITH FOOD ORALLY BID TAKING AVODART 0.5 MG CAPSULE 1 CAPSULE ORALLY ONCE A DAY TAKING VITAMIN D-3 5000 UNIT TABLET 1 TABLET ORALLY ONCE A DAY TAKING COLACE 100 MG CAPSULE 1 CAPSULE ORALLY TWICE DAILY TAKING MECLIZINE HCL 25 MG TABLET 1 TABLET ORALLY DAILY AND 2 TABS NEEDED TAKING LEVOTHYROXINE SODIUM 25 MCG TABLET TAKE ONE TABLET BY MOUTH EVERY MORNING ON AN EMPTY STOMACH ORALLY ONCE A DAY TAKING OXYBUTYNIN CHLORIDE ER 5 MG TABLET EXTENDED RELEASE 24 HOUR 1 TABLET ORALLY ONCE A DAY TAKING DETROL 2 MG TABLET 1 TABLET ORALLY TWICE A DAY TAKING TIZANIDINE HCL 2 MG TABLET 1 TABLET NEEDED ORALLY FOR SPASMS AND PAIN EVERY 6 HOURS NEEDED MDD3 TAKING FLOMAX 0.4 MG CAPSULE EXTENDED RELEASE 24 HOUR 2 CAPSULE 30 MINUTES AFTER THE SAME MEAL EACH DAY ONCE A DAY TAKING DRISDOL 84740 UNIT CAPSULE 1 CAPSULE ORALLY EVERY OTHER WEEK TAKING PERCOCET 5-325 MG TABLET 1 TABLET ORALLY Q 4 HRS PRN PAIN MDD=5 TAKING GABAPENTIN 400 MG CAPSULE 1 CAPSULE ORALLY FOUR TIMES DAILY MDD4 TAKING TRAMADOL HCL ER 100 MG TABLET EXTENDED RELEASE 24 HOUR 1 TABLET ORALLY ONCE A DAY MDD=1 TAKING STEGLATRO 5 MG TABLET 1 TABLET ORALLY ONCE A DAY TAKING TRIAMCINOLONE ACETONIDE 55 MCG/ACT AEROSOL USE 1 SPRAY IN EACH NOSTRIL ONCE DAILY TAKING TAMSULOSIN HCL 0.4 MG CAPSULE 1 CAPSULE 30 MINUTES AFTER THE SAME MEAL EACH DAY ORALLY ONCE A DAY NOT-TAKING OXYCODONE-ACETAMINOPHEN 10-325 MG TABLET (SCHEDULE II DRUG) TAKE ONE TABLET BY MOUTH EVERY 4 HOURS NEEDED FOR PAIN AFTER SURGERY MAXIMUM DAILY DOSE SIX TABLETS ORAL NOT-TAKING VITAMIN D3 2000 UNITS TABLET 1 TAB ORALLY ONCE A DAY NOT-TAKING VENLAFAXINE HCL ER 37.5 MG CAPSULE EXTENDED RELEASE 24 HOUR 1 CAP ORALLY ONCE DAILY NOT-TAKING SKELAXIN 800 MG TABLET 1 TABLET ORALLY FOUR TIMES DAY WORKMEN COMP NOT-TAKING XARELTO 10 MG TABLET 1 TABLET WITH FOOD ORALLY ONCE A DAY NOT-TAKING COREG 12.5MG TABLET 1 TAB ORALLY TWICE DAILY NOT-TAKING CYMBALTA 20 MG CAPSULE DELAYED RELEASE PARTICLES 1 CAPSULE ORALLY ONCE A DAY MEDICATION LIST REVIEWED AND RECONCILED WITH THE PATIENT PAST MEDICAL HISTORY COPD- SPIROMETRY- 02/05/14- DECLINES AT THIS TIME CHF (SYSTOLIC AND DIASTOLIC)- SABRINA HYPERLIPIDEMIA HYPERTENSION GERD CHRONIC LOW BACK PAIN- W COMP- DR BOJORQUEZ- CHRONIC PAIN MEDS PER [facility] PA[facility]NA[facility]. CHRONIC RT KNEE PAIN VERTIGO (SINCE 1990) OBESITY H/O HEAVY ALCOHOL USE (IN REMISSION) ASCVD 10-YEAR RISK IS 3.6% IN HTE COLONOSCOPY 2009 BILATERAL HYDROCELE EPIDIDYMITIS CYST RIGHT HEPTITIS B (FROM BLOOD TRANSFUSION) PACEMAKER DEFIBRILLATOR 04/2018 HEART MONITOR -WEARING FOR 1 MONTH - V-TACH V-TAC HOSP 06/21/2018 DENSE LIPMA ALLERGIES RED DYE: RASH - ALLERGY TOMATO: NAUSEA/VOMITING - ALLERGY FINASTERIDE: FLARED CHF - CONTRAINDICATION NSAIDS: CONGESTIVE FAILURE - CONTRAINDICATION VOLTAREN: GEL/ SPASMS/PAIN - ALLERGY LYRICA: CHF - CONTRAINDICATION SURGICAL HISTORY NO PERSONAL OR FHX SEVERE REACTION TO ANESTHESIA R HUMERUS FIXATION 1972 R MEDIAL MENISCECTOMY 1981 DRAINAGE OF R NECK ? PERITONSILAR ABSCESS 1996 S/P AICD PLACMENT 2007 L4-S1 SPINAL DECOMPRESSION WITH INSTRUMENTED POSTERIOR AND INTERBODY FUSION. DUROTOMY REPAIR. ([facility] @ [facility]) 03/2011 EGD-REINDL NML 03/13/10 COLONOSCOPY- REINDL. DIVERTICULOSIS- REPEAT 5-10 YEARS 03/13/10 RIGHT KNEE SURGERY BY ORTHO 02/05 NEW ICD 12/29/16 MASS [id number] AGAIN 02/2018 REMOVAL TUMOR LEFT THORACIC 02/27/18 RIGHT KNEE REPLACEMENT 06/2018 REMOVAL OF TUMOR RIGHT BACK- DR. KAUFMAN 11/24/18 FAMILY HISTORY FATHER: ALIVE, BYPASS. KIDNEY CANCER HAD KIDNEY REMOVED. METASTATIC CANCER TO LUNGS., DIAGNOSED WITH HYPERTENSION, HEART DISEASE, CANCER MOTHER: ALIVE, HYPERTENSION, HEART DISEASE, OTHER, DIABETES SIBLINGS: 2 BROTHERS HAD BYPASS. SISTER HAS HEART ISSUES SINCE . 1 BROTHER HAD HYDROCELE. 2 BROTHER(S) , 5 SISTER(S) . 1 SON(S) , 1 DAUGHTER(S) - HEALTHY. FATHER-MEDISTATIC LUNG CA\\\\NMOTHER--HYPOTHYROID\\\\NOLDER BROTHER-STROKE\\\\NSON- ASTHMA. SOCIAL HISTORY GENERAL: TOBACCO USE ARE YOU A:FORMER SMOKER QUIT 2007 SMOKED FOR 33 YRS. 1 PACK PER DAY. EDUCATION LEVEL OF EDUCATION:COLLEGE LANGUAGE LANGUAGES SPOKEN:VINCENTIAN DOMESTIC VIOLENCE DO YOU FEEL SAFE IN YOUR ENVIRONMENT?YES RECREATIONAL DRUG USE DRUG USE?NO EXERCISE: WALKS. LEARNING BARRIERS / SPECIAL NEEDS CHANGE FROM LAST VISIT?NO BARRIERS TO LEARNING?NO HEARING IMPAIRED?YES BILATERAL [place] WORSE ON LEFT VISION IMPAIRED?YES COGNITIVELY IMPAIRED?NO :CORRECTIVE LENSES READINESS TO LEARN?YES LEARNING PREFERENCES?NO LEARNING CAPABILITIES PRESENT?YES EMOTIONAL BARRIERS?NO SPECIAL DEVICES?NO CENTER HOLE REAMER NEEDED?NO PAIN CLINIC PFS, CLERGY, PUBLIC HEALTH REFERRALS PFS REFERRAL NEEDED?NO CLERGY REFERRAL NEEDED?NO PUBLIC HEALTH REFERRAL NEEDED?NO WAS THE PROVIDER NOTIFIED OF ANY PERTINENT INFO?YES HAS THE PATIENT BEEN EDUCATED REGARDING HIS/HER PLAN OF CARE?YES HAS THE PATIENT BEEN EDUCATED REGARDING PAIN, THE RISK FOR PAIN, THE IMPORTANCE OF EFFECTIVE PAIN MANAGEMENT, AND THE PAIN ASSESSMENT PROCESS?YES LATEX QUESTIONNAIRE LATEX ALLERGY : HAVE YOU EVER DEVELOPED ANY TYPE OF REACTION AFTER HANDLING LATEX PRODUCTS SUCH RUBBER GLOVES, CONDOMS, DIAPHRAGMS, BALLOONS, SOCKS, OR UNDERWEAR?NO LATEX ALLERGY : HAVE YOU EVER DEVELOPED ANY TYPE OF REACTION DURING OR AFTER DENTAL APPOINTMENT, VAGINAL/RECTAL EXAMINATION, SURGICAL PROCEDURE, OR ANY OTHER EXPOSURE?NO DATE ASKED : 01/10/2019 LATEX RISK : HAVE YOU EVER HAD ANY DIFFICULTY BREATHING OR HIVES AFTER EATING OR HANDLING ANY FRUITS, OR VEGETABLES; SUCH KIWI, BANANAS, STONE FRUITS, OR CHESTNUTSNO LATEX RISK : DO YOU HAVE A PREVIOUS PERSONAL HISTORY OF MORE THAN NINE SURGERIES, SPINA BIFIDA, OR REPEATED CATHERTIZATIONS? NO LATEX RISK : ARE YOU FREQUENTLY EXPOSED TO LATEX PRODUCTS IN YOUR OCCUPATION?NO CAFFEINE CAFFEINE USE?NO ADVANCE DIRECTIVE ADVANCE DIRECTIVE DISCUSSED WITH PATIENT:YES PT. HAS HCP CHILDREN 1. MARQUITA ARMSTRONG 2. KEVYN ABEL STATES COPY ON FILE WITH HOSPITAL PENTECOSTALISM [id number] RESTORATION MARITAL STATUS: .. ALCOHOL SCREENING DID YOU HAVE A DRINK CONTAINING ALCOHOL IN THE PAST YEAR?NO POINTS0 INTERPRETATIONNEGATIVE SEXUAL HX HAD SEX IN THE LAST 12 MONTHS (VAGINAL, ORAL, OR ANAL)?NO HAVE YOU EVER HAD AN STD?NO 05/09/18 REVIEWED WITH PT. 05/23/18 REVIEWED WITH PT LASREVIEWED WITH PATIENT 07/11/18 1346 JSREVIEWED WITH PATIENT 07/27/18 1108 JSREVIEWED WITH PATIENT 08/22/18 0911 JSREVIEWED WITH PT 03/26/2019 0945 LASREVIEWED WITH PATIENT 10/03/18 1335 BVREVIEWED WITH PATIENT 11/23/18 1215 LAS. HOSPITALIZATION/MAJOR DIAGNOSTIC PROCEDURE CHF 2008 DOG BITE 01/2015 RELATED TO SURGERIES [facility] 06/21/18 SURGERY RELATED 06/2018 REVIEW OF SYSTEMS REVIEWED BY: PROVIDER: THELMA BHARDWAJ MD . CONSTITUTIONAL: ANY CHANGE IN YOUR MEDICAL CONDITION? NO . CHILLS NO . FEVER NO . INFECTION: DO YOU HAVE NEW INFECTIONS? NO . DO YOU HAVE HISTORY OF MRSA? NO . MUSCULOSKELETAL: ANY NEW PATTERNS OF PAIN OR NUMBNESS? NO . GASTROENTEROLOGY: ANY NEW CHANGE IN BOWEL CONTROL? NO . GENITOURINARY: ANY NEW CHANGE IN BLADDER CONTROL? PT REPORTS AN OCCASIONAL INABILITY TO INITIATE VOIDING. HIS PRIMARY HAS ADJUSTED HIS MEDICATIONS FOR THIS, TO ALSO SEE A UROLOGIST. . IS THERE A CHANCE YOU COULD BE ? NO . HEMATOLOGY/LYMPH: DO YOU TAKE ANY BLOOD THINNERS? (FOR EXAMPLE- COUMADIN, PLAVIX, AGGRENOX, PLATEL, PRADAXA, OR XARELTO) NO . WHEN WAS YOUR LAST DOSE? DATE: TIME: . NEUROLOGY: HAVE YOU FALLEN IN THE PAST 12 MONTHS? NO . ANY NEW EXTREMITY NUMBNESS OR WEAKNESS? NO . CARDIOLOGY: DO YOU HAVE A PACEMAKER OR DEFIBRILLATOR? YES . RESPIRATORY: HAVE YOU BEEN SICK IN THE PAST WEEK? NO . FEVER NO . FLU LIKE SYMPTOMS? NO . COUGH NO . INTEGUMENTARY: DO YOU HAVE ANY RASHES OR OPEN SORES? NO . ALLERGIC/IMMUNO: ARE YOU ALLERGIC TO IV DYE? NO . ANY NEW ALLERGIES? NO . PSYCHIATRIC: DO YOU HAVE THOUGHTS OF HURTING YOURSELF OR SOMEONE ELSE? NO . ARE YOU ABUSED, NEGLECTED, OR IN AN UNSAFE ENVIRONMENT? NO . ENDOCRINOLOGY: ARE YOU DIABETIC? YES . OTHER: DO YOU NEED ANY PRESCRIPTIONS? YES . IF YES, PLEASE LIST: ____OXYCODONE/ACETAMINOPHEN 5-325 MG, TRAMADOL ER 100 MG, TIZANIDINE 2 MG . ANY NEW PROBLEMS WITH YOUR MEDICATIONS? NO . WHEN DID YOU LAST EAT? ____ . WHEN DID YOU LAST DRINK? ____ . WHAT DID YOU LAST DRINK? ____ . NAME OF PERSON DRIVING YOU HOME? ____ . DO YOU HAVE ANY OTHER QUESTIONS OR CONCERNS NO . VITAL SIGNS WT 266.8 LBS, HT 72 IN, BMI 36.18 INDEX, BP 107/52 MM HG, HR 59 /MIN, RR 18 /MIN, TEMP 95.7 F, OXYGEN SAT % 92%, SAFE IN ENV? (Y/N) YES, NA INITIALS AW 0933, REVIEWED BY: CAITIE. EXAMINATION GENERAL EXAMINATION: PATIENT IS ALERT O X 3 AND COOPERATIVE. TENDERNESS IN THE RIGHT AND LEFT LOWER BACK AREAS. PRESENCE OF BANDS OF TISSUE AND TRIGGER POINTS WITH RESTRICTION OF MOVEMENT OF THE LOW BACK. CT SCAN OF THE LUMBAR SPINE DONE ON 04/13/2016 SHOWS FACET ARTHROPATHY CHANGES AND POST LAMINECTOMY AT MULTIPLE LEVELS. ASSESSMENTS MYALGIA, OTHER SITE - M79.18 (PRIMARY) LOW BACK PAIN - M54.5 OTHER CHRONIC PAIN - G89.29 TREATMENT MYALGIA, OTHER SITE CLINICAL NOTES: WE DISCUSSED SEVERAL ISSUES WITH MR. ARMSTRONG'S PAIN MANAGEMENT CASE. DUE TO THE TRIGGER POINTS, BANDS OF TISSUE, AND RESTRICTION OF MOVEMENT, I WOULD LIKE TO MOVE FORWARD WITH A TRIGGER POINT INJECTION AT THIS TIME. WE DISCUSSED THE BENEFITS, RISKS, AND ALTERNATIVES OF THE INJECTION AND THE PATIENT WOULD LIKE TO PROCEED. AFTER THE TRIGGER POINT INJECTION, IF THE INJECTION OFFERS GOOD PAIN RELIEF I PLAN TO REDUCE THE TIZANIDINE IN ORDER TO FOLLOW GUIDELINES. I AM REDUCING THE PERCOCET FROM 150 TO 145 TABLETS FOR THE MONTH. THE PATIENT UNDERSTANDS AND AGREES TO TRY TO REDUCE THE NARCOTICS MUCH POSSIBLE. THE PATIENT MENTIONED HE WILL BE TRYING CBD OIL TO SEE IF IT WILL HELP WITH HIS PAIN. I REFILLED THE TRAMADOL ER 100 MG AND PERCOCET 5-325 MG MEDICATIONS TODAY. THE PATIENT BROUGHT HIS MEDICATIONS IN THEIR ORIGINAL BOTTLES TO TODAY'S VISIT. URINE TOXICOLOGY AND PILL COUNTING WILL BE PERFORMED TODAY. THE PATIENT WILL FOLLOW UP WITH THE [facility] NURSE PRACTITIONER, IN THE 2-3 MONTHS AFTER THE INJECTION. INSTRUCTIONS WERE GIVEN, QUESTIONS WERE ANSWERED, PATIENT REPORTS UNDERSTANDING AND AGREES WITH THE PLAN. I, MARCY TRAVIS, DOCUMENTED THE ABOVE INFORMATION ACTING A SCRIBE FOR DR. BHARDWAJ. I HAVE REVIEWED THE ABOVE DOCUMENT, WRITTEN BY MARCY DEE AND I VERIFY THAT IT IS ACCURATE. . OTHERS REFILL TRAMADOL HCL ER TABLET EXTENDED RELEASE 24 HOUR, 100 MG, 1 TABLET, ORALLY, ONCE A DAY MDD=1, 30 DAY(S), 30, REFILLS 0 REFILL PERCOCET TABLET, 5-325 MG, 1 TABLET, ORALLY, Q 4 HRS PRN PAIN MDD=5, 30 DAYS, 145, REFILLS 0 PROCEDURES PN WORKMANS' COMP OPINION IN YOUR OPINION, WAS THE INCIDENT THAT THE PATIENT DESCRIBED THE COMPETENT MEDICAL CAUSE OF THIS INJURY/ILLNESS? YES ARE THE PATIENT'S COMPLAINTS CONSISTENT WITH HIS/HER HISTORY OF THE INJURY/ILLNESS? YES IS THE PATIENT'S HISTORY OF THE INJURY/ILLNESS CONSISTENT WITH YOUR OBJECTIVE FINDING? YES WHAT IS THE PERCENTAGE OF TEMPORARY IMPAIRMENT? MODERATE TO MARKED = 66.7% IS THE PATIENT WORKING? NO DOCTOR ON SITE: THELMA NUNEZ MD PROCEDURE CODES FA211 ESTABILISHED PATIENT [facility] FACILITY CHARGE G8427 CURRENT MEDS W/DOSAGES DOCUMENTED G8730 PAIN ASSESS POS TOOL F/U PLAN DOC DISPOSITION & COMMUNICATION FOLLOW UP 2-3 MONTHS (REASON: LB TPI, FU WITH CONVEYOR LOADER) ELECTRONICALLY SIGNED BY THELMA BHARDWAJ MD, MD ON 04/05/2019 AT 01:38 PM EDT DISCLAIMER : THIS IS A VISIT SUMMARY EXTRACTED FROM THE [facility] CHART. IT IS NOT A COPY OF THE [facility] PROGRESS NOTE. AMANDAD
== END ==
LOC: M PAIN 09:30
PROVIDERS: ATTEND Anesthesiology
DX: G89.29 Other chronic pain (principal); M79.18 Myalgia, other site; M54.5 Low back pain; J44.9 Chronic obstructive pulmonary disease, unspecified; I50.42 Chronic combined systolic (congestive) and diastolic (congestive) heart failure; E78.5 Hyperlipidemia, unspecified; I11.0 Hypertensive heart disease with heart failure; K21.9 Gastro-esophageal reflux disease without esophagitis; M25.561 Pain in right knee; R42 Dizziness and giddiness; E66.9 Obesity, unspecified; F10.11 Alcohol abuse, in remission; Z95.810 Presence of automatic (implantable) cardiac defibrillator; Z87.891 Personal history of nicotine dependence; Z79.84 Long term (current) use of oral hypoglycemic drugs; Z79.82 Long term (current) use of aspirin; Z79.891 Long term (current) use of opiate analgesic; Z91.048 Other nonmedicinal substance allergy status; Z91.018 Allergy to other foods; Z88.6 Allergy status to analgesic agent; Z88.8 Allergy status to other drugs, medicaments and biological substances; Z68.36 Body mass index [BMI] 36.0-36.9, adult

== ENCOUNTER → 2019-04-03 | Outpatient (REF) | payer OTHER ==
[2019-04-03 19:54] LABS: APPEARANCE, URINE HAZY (CLEAR); BACTERIA, URINE AUTO NEGATIVE (NEGATIVE); BILIRUBIN, URINE AUTO NEGATIVE (NEGATIVE); BLOOD, URINE BLOOD NEGATIVE (NEGATIVE); COLOR, URINE YELLOW (YELLOW); GLUCOSE, URINE (UA) AUTO 3+ mg/dL (NEGATIVE); KETONE, URINE AUTO NEGATIVE (NEGATIVE); LEUKOCYTE ESTERASE, URINE AUTO NEGATIVE (NEGATIVE); MUCUS, URINE SMALL (NEGATIVE); NITRITE, URINE AUTO NEGATIVE (NEGATIVE); PROTEIN, URINE AUTO NEGATIVE (NEGATIVE); RBC, URINE AUTO 0 /HPF (0-3); SPECIFIC GRAVITY URINE AUTO 1.031 (1.002-1.035); SQUAMOUS EPITHELIAL CELL UR AU 0 /HPF (0-6); UROBILINOGEN, URINE AUTO 0.2 mg/dL (0.0-2.0); WBC, URINE AUTO 2 /HPF (0-3)
== END ==
LOC: M SMT 17:31
PROVIDERS: ATTEND Nurse Practitioner Family
DX: N40.1 Benign prostatic hyperplasia with lower urinary tract symptoms (principal)

== ENCOUNTER → 2019-04-09 | Outpatient (CLI) | payer OTHER ==
[~2019-04-09] MED LIST changes: +CHOL50002 PO; +MIRA3350 PO; +OMEP40CA97 PO; +ONDA-83 PO; +OXYB-54 PO; -OXYB5TAB PO; +PROT1TAB2 PO; +SUCR1SS PO; +VITA500045 PO; +ZONI50CA11 PO; -ZONI50CA3 PO
--- NOTE | 2019-04-09 11:47 | REP ---
Bladder ultrasound: The pre void bladder volume is 24 ml. The the patient was unable to void, therefore postvoid bladder volume could not be performed. The prostate measures 4.2 x 4.0 x 4.0 cm for a prostate volume of 44 ml. The prostate is enlarged. Normal prostate volume is up to 30 ml. Electronically Signed by Pillo Smalls MD 04/09/2019 11:38 A
== END ==
LOC: M RAD 10:01
PROVIDERS: ATTEND Nurse Practitioner Family
DX: N40.1 Benign prostatic hyperplasia with lower urinary tract symptoms (principal)

== ENCOUNTER 2019-04-12 12:30 | Outpatient (RCR) | payer OTHER ==
[~2019-04-12 12:30] MED LIST changes: -CHOL50002 PO; -MIRA3350 PO; -OMEP40CA97 PO; -ONDA-83 PO; -OXYB-54 PO; +OXYB5TAB2 PO; -PROT1TAB2 PO; -SUCR1SS PO; -VITA500045 PO; -ZONI50CA11 PO; +ZONI50CA3 PO
== END 2019-04-25 ==
LOC: M PT 12:30
PROVIDERS: ATTEND Orthopaedic Surgery
DX: Z47.1 Aftercare following joint replacement surgery (principal); Z96.651 Presence of right artificial knee joint

== ENCOUNTER → 2019-04-17 | Outpatient (CLI) | payer OTHER ==
[~2019-04-17] MED LIST changes: +BUPIVACAINE HCL 0.25% 10 ML VIAL As Ordered ONE; +BUPIVACAINE HCL 0.25% 30 ML VIAL As Ordered ONE; +OXYB5TAB PO; -OXYB5TAB2 PO; +TRIAMCINOLONE ACETONIDE SUSP 40 MG/ML VIAL (J3301) As Ordered ONE
--- NOTE | 2019-04-28 00:55 | ECWPNPC ---
PATIENT NAME: CAMILO ARMSTRONG : 1960 GENDER: MALE VISIT DATE: 04/17/2019 DISCHARGE DATE: 04/17/19 1535 VISIT LOCKED DATE TIME: PHYSICIAN: THELMA BHARDWAJ MD RESOURCE: THELMA BHARDWAJ MD REASON FOR APPOINTMENT 1. NCA THORACIC TPI HISTORY OF PRESENT ILLNESS HISTORY OF PRESENT ILLNESS: PAIN THE PATIENT DESCRIBES THE PAIN... FALL RISK SCREENING: SCREENING :NO FALLS REPORTED IN THE LAST YEAR CURRENT MEDICATIONS TAKING TRAMADOL HCL ER 100 MG TABLET EXTENDED RELEASE 24 HOUR 1 TABLET ORALLY ONCE A DAY MDD=1, NOTES: 0630 TAKING PERCOCET 5-325 MG TABLET 1 TABLET ORALLY Q 4 HRS PRN PAIN MDD=5, NOTES: 1100 TAKING MECLIZINE HCL 25 MG TABLET 1 TABLET ORALLY 1-2 TIMES DAILY NEEDED, NOTES: 629 TAKING METFORMIN HCL 500 MG TABLET DIRECTED ORALLY 500 MG IN AM AND 1000MG AT DINNER, NOTES: 04/16/192299 TAKING OMEPRAZOLE 40 MG CAPSULE DELAYED RELEASE 1 CAPSULE ORALLY ONCE A DAY, NOTES: 04/16/192299 TAKING LISINOPRIL 2.5MG TABLET 1 TAB ORALLY AT BEDTIME, NOTES: 04/16/192299 TAKING ASPIRIN 81 MG TABLET DELAYED RELEASE 1 TAB ORALLY DAILY, NOTES: 04/16/192299 TAKING LIPITOR 80 MG TABLET 1 TABLET ORALLY ONCE A DAY AT BEDTIME, NOTES: 04/16/192299 TAKING NASACORT AQ 55 MCG/ACT AEROSOL 1 PUFF IN EACH NOSTRIL NASALLY ONCE A DAY, NOTES: 04/16/192299 TAKING ADVAIR DISKUS 250-50 MCG/DOSE MISCELLANEOUS 1 INHALATION. ALWAYS RINSE YOUR MOUTH OUT AFTER USE DAILY, NOTES: 0630 TAKING VENTOLIN HFA 108 (90 BASE) MCG/ACT AEROSOL SOLUTION 2 PUFFS INHALATION EVERY 4-6 HOURS NEEDED, NOTES: MONTHS AGO TAKING NITROSTAT 0.4 MG TABLET SUBLINGUAL 1 TAB SUBLINGUAL TAB1 TAB FOR CHEST PAIN IF NO RELIEF IN 5 MINUTES TAKE 2ND NITRO IF NO RELIEF AFTER 5 MINUTES TAKE 3RD NITRO ER, NOTES: NONE RECENT TAKING MIRALAX 17 GM POWDER 17GM ORALLY DAILY NEEDED, NOTES: NONE RECENT TAKING MAGNESIUM 64 MG CAPSULE 1 TAB ORALLY BID, NOTES: 0630 TAKING MULTIVITAMINS 1 TABLET DIRECTED ORALLY DAILY, NOTES: 0630 TAKING ZONISAMIDE 50 MG CAPSULE 1 CAP ORALLY ONCE DAILY, NOTES: 04/16/192299 TAKING ALDACTONE 25 MG TABLET 1/2 TAB ORALLY DAILY, NOTES: 04/16/192299 TAKING LASIX 40 MG TABLET 1 TAB ORALLY BID NEEDED, NOTES: NONE RECENT TAKING ATENOLOL 50 MG TABLET 1 TABLET ORALLY BID, NOTES: 0630 TAKING AMIODARONE HCL 200 MG TABLET 1 TABLET ORALLY BID, NOTES: 0630 TAKING POTASSIUM CHLORIDE ER 20 MEQ TABLET EXTENDED RELEASE 1 TABLET WITH FOOD ORALLY BID, NOTES: 06 TAKING AVODART 0.5 MG CAPSULE 1 CAPSULE ORALLY ONCE A DAY, NOTES: 04/16/192299 TAKING VITAMIN D-3 5000 UNIT TABLET 1 TABLET ORALLY ONCE A DAY, NOTES: 04/16/192299 TAKING COLACE 100 MG CAPSULE 1 CAPSULE ORALLY TWICE DAILY, NOTES: 629 TAKING LEVOTHYROXINE SODIUM 25 MCG TABLET TAKE ONE TABLET BY MOUTH EVERY MORNING ON AN EMPTY STOMACH ORALLY ONCE A DAY, NOTES: 629 TAKING OXYBUTYNIN CHLORIDE ER 5 MG TABLET EXTENDED RELEASE 24 HOUR 1 TABLET ORALLY ONCE A DAY, NOTES: 629 TAKING DETROL 2 MG TABLET 1 TABLET ORALLY TWICE A DAY, NOTES: 629 TAKING FLOMAX 0.4 MG CAPSULE EXTENDED RELEASE 24 HOUR 2 CAPSULE 30 MINUTES AFTER THE SAME MEAL EACH DAY ONCE A DAY, NOTES: 5 DAYS AGO TAKING DRISDOL 78861 UNIT CAPSULE 1 CAPSULE ORALLY EVERY OTHER WEEK, NOTES: NONE RECENT TAKING GABAPENTIN 400 MG CAPSULE 1 CAPSULE ORALLY FOUR TIMES DAILY MDD4, NOTES: 1100 TAKING STEGLATRO 5 MG TABLET 1 TABLET ORALLY ONCE A DAY, NOTES: 0630 TAKING ZYRTEC 10 MG TABLET 1 TABLET ORALLY ONCE A DAY, NOTES: 04/16/192299 TAKING KEFLEX 500 MG CAPSULE 1 CAPSULE 1 HOUR PRIOR TO YOUR CYSTOSCOPY ORALLY ONCE, NOTES: HASN'T TAKEN YET TAKING MACROBID 100 MG CAPSULE 1 CAPSULE WITH FOOD ORALLY EVERY 12 HRS, NOTES: 0630 TAKING TIZANIDINE HCL 2 MG TABLET 1 TABLET NEEDED ORALLY FOR SPASMS AND PAIN EVERY 6 HOURS NEEDED MDD3, NOTES: 0630 NOT-TAKING TAMSULOSIN HCL 0.4 MG CAPSULE 1 CAPSULE 30 MINUTES AFTER THE SAME MEAL EACH DAY ORALLY ONCE A DAY NOT-TAKING TRIAMCINOLONE ACETONIDE 55 MCG/ACT AEROSOL USE 1 SPRAY IN EACH NOSTRIL ONCE DAILY NOT-TAKING OXYCODONE-ACETAMINOPHEN 10-325 MG TABLET (SCHEDULE II DRUG) TAKE ONE TABLET BY MOUTH EVERY 4 HOURS NEEDED FOR PAIN AFTER SURGERY MAXIMUM DAILY DOSE SIX TABLETS ORAL NOT-TAKING VITAMIN D3 2000 UNITS TABLET 1 TAB ORALLY ONCE A DAY NOT-TAKING VENLAFAXINE HCL ER 37.5 MG CAPSULE EXTENDED RELEASE 24 HOUR 1 CAP ORALLY ONCE DAILY NOT-TAKING SKELAXIN 800 MG TABLET 1 TABLET ORALLY FOUR TIMES DAY WORKMEN COMP NOT-TAKING XARELTO 10 MG TABLET 1 TABLET WITH FOOD ORALLY ONCE A DAY NOT-TAKING COREG 12.5MG TABLET 1 TAB ORALLY TWICE DAILY NOT-TAKING CYMBALTA 20 MG CAPSULE DELAYED RELEASE PARTICLES 1 CAPSULE ORALLY ONCE A DAY MEDICATION LIST REVIEWED AND RECONCILED WITH THE PATIENT PAST MEDICAL HISTORY COPD- SPIROMETRY- 02/05/14- DECLINES AT THIS TIME CHF (SYSTOLIC AND DIASTOLIC)- SABRINA HYPERLIPIDEMIA HYPERTENSION GERD CHRONIC LOW BACK PAIN- W COMP- DR BOJORQUEZ- CHRONIC PAIN MEDS PER [facility] PAIN MANAGEMENT. CHRONIC RT KNEE PAIN VERTIGO (SINCE 1990) OBESITY H/O HEAVY ALCOHOL USE (IN REMISSION) ASCVD 10-YEAR RISK IS 3.6% IN HTE COLONOSCOPY 2009 BILATERAL HYDROCELE EPIDIDYMITIS CYST RIGHT HEPTITIS B (FROM BLOOD TRANSFUSION) PACEMAKER DEFIBRILLATOR 04/2018 HEART MONITOR -WEARING FOR 1 MONTH - V-TACH V-TAC HOSP 06/21/2018 DENSE LIPMA ALLERGIES RED DYE: RASH - ALLERGY TOMATO: NAUSEA/VOMITING - ALLERGY FINASTERIDE: FLARED CHF - CONTRAINDICATION NSAIDS: CONGESTIVE FAILURE - CONTRAINDICATION VOLTAREN: GEL/ SPASMS/PAIN - ALLERGY LYRICA: CHF - CONTRAINDICATION SURGICAL HISTORY NO PERSONAL OR FHX SEVERE REACTION TO ANESTHESIA R HUMERUS FIXATION 1972 R MEDIAL MENISCECTOMY 1981 DRAINAGE OF R NECK ? PERITONSILAR ABSCESS 1996 S/P AICD PLACMENT 2007 L4-S1 SPINAL DECOMPRESSION WITH INSTRUMENTED POSTERIOR AND INTERBODY FUSION. DUROTOMY REPAIR. ([facility] @ [facility]) 03/2011 EGD-REINDL NML 03/13/10 COLONOSCOPY- REINDL. DIVERTICULOSIS- REPEAT 5-10 YEARS 03/13/10 RIGHT KNEE SURGERY BY ORTHO 02/05 NEW ICD 12/29/16 MASS [id number] AGAIN 02/2018 REMOVAL TUMOR LEFT THORACIC 02/27/18 RIGHT KNEE REPLACEMENT 06/2018 REMOVAL OF TUMOR RIGHT BACK- DR. KAUFMAN 11/24/18 FAMILY HISTORY FATHER: ALIVE, BYPASS. KIDNEY CANCER HAD KIDNEY REMOVED. METASTATIC CANCER TO LUNGS., DIAGNOSED WITH HYPERTENSION, HEART DISEASE, CANCER MOTHER: ALIVE, HYPERTENSION, HEART DISEASE, OTHER, DIABETES SIBLINGS: 2 BROTHERS HAD BYPASS. SISTER HAS HEART ISSUES SINCE . 1 BROTHER HAD HYDROCELE. 2 BROTHER(S) , 5 SISTER(S) . 1 SON(S) , 1 DAUGHTER(S) - HEALTHY. FATHER-MEDISTATIC LUNG CA\\\\NMOTHER--HYPOTHYROID\\\\NOLDER BROTHER-STROKE\\\\NSON- ASTHMA. SOCIAL HISTORY GENERAL: TOBACCO USE ARE YOU A:FORMER SMOKER QUIT 2007 SMOKED FOR 33 YRS. 1 PACK PER DAY. EDUCATION LEVEL OF EDUCATION:COLLEGE LANGUAGE LANGUAGES SPOKEN:BENGALI DOMESTIC VIOLENCE DO YOU FEEL SAFE IN YOUR ENVIRONMENT?YES RECREATIONAL DRUG USE DRUG USE?NO EXERCISE: WALKS. LEARNING BARRIERS / SPECIAL NEEDS CHANGE FROM LAST VISIT?NO BARRIERS TO LEARNING?NO HEARING IMPAIRED?YES BILATERAL LUMMI WORSE ON LEFT VISION IMPAIRED?YES COGNITIVELY IMPAIRED?NO :CORRECTIVE LENSES READINESS TO LEARN?YES LEARNING PREFERENCES?NO LEARNING CAPABILITIES PRESENT?YES EMOTIONAL BARRIERS?NO SPECIAL DEVICES?NO LABORER HIGH DENSITY PRESS NEEDED?NO PAIN CLINIC PFS, CLERGY, PUBLIC HEALTH REFERRALS PFS REFERRAL NEEDED?NO CLERGY REFERRAL NEEDED?NO PUBLIC HEALTH REFERRAL NEEDED?NO WAS THE PROVIDER NOTIFIED OF ANY PERTINENT INFO?YES HAS THE PATIENT BEEN EDUCATED REGARDING HIS/HER PLAN OF CARE?YES HAS THE PATIENT BEEN EDUCATED REGARDING PAIN, THE RISK FOR PAIN, THE IMPORTANCE OF EFFECTIVE PAIN MANAGEMENT, AND THE PAIN ASSESSMENT PROCESS?YES LATEX QUESTIONNAIRE LATEX ALLERGY : HAVE YOU EVER DEVELOPED ANY TYPE OF REACTION AFTER HANDLING LATEX PRODUCTS SUCH RUBBER GLOVES, CONDOMS, DIAPHRAGMS, BALLOONS, SOCKS, OR UNDERWEAR?NO LATEX ALLERGY : HAVE YOU EVER DEVELOPED ANY TYPE OF REACTION DURING OR AFTER DENTAL APPOINTMENT, VAGINAL/RECTAL EXAMINATION, SURGICAL PROCEDURE, OR ANY OTHER EXPOSURE?NO LATEX RISK : HAVE YOU EVER HAD ANY DIFFICULTY BREATHING OR HIVES AFTER EATING OR HANDLING ANY FRUITS, OR VEGETABLES; SUCH KIWI, BANANAS, STONE FRUITS, OR CHESTNUTSNO LATEX RISK : DO YOU HAVE A PREVIOUS PERSONAL HISTORY OF MORE THAN NINE SURGERIES, SPINA BIFIDA, OR REPEATED CATHERIZATIONS? NO LATEX RISK : ARE YOU FREQUENTLY EXPOSED TO LATEX PRODUCTS IN YOUR OCCUPATION?NO DATE ASKED : 01/10/2019 CAFFEINE CAFFEINE USE?NO ADVANCE DIRECTIVE ADVANCE DIRECTIVE DISCUSSED WITH PATIENT:YES PT. HAS HCP CHILDREN 1. MARQUITA ARMSTRONG 2. KEVYN [place] COPY ON FILE WITH HOSPITAL HINDUISM [id number] JAIN MARITAL STATUS: .. ALCOHOL SCREENING DID YOU HAVE A DRINK CONTAINING ALCOHOL IN THE PAST YEAR?NO POINTS0 INTERPRETATIONNEGATIVE SEXUAL HX HAD SEX IN THE LAST 12 MONTHS (VAGINAL, ORAL, OR ANAL)?NO HAVE YOU EVER HAD AN STD?NO 05/09/18 REVIEWED WITH PT. 05/23/18 REVIEWED WITH PT LASREVIEWED WITH PATIENT 07/11/18 1346 JSREVIEWED WITH PATIENT 07/27/18 1108 JSREVIEWED WITH PATIENT 08/22/18 0911 JSREVIEWED WITH PATIENT 04/17/19 1409 JSREVIEWED WITH PT 03/26/2019 0945 LASREVIEWED WITH PATIENT 10/03/18 1335 BVREVIEWED WITH PATIENT 11/23/18 1215 LAS. HOSPITALIZATION/MAJOR DIAGNOSTIC PROCEDURE CHF 2008 DOG BITE 01/2015 RELATED TO SURGERIES [facility] VTAC 06/21/18 SURGERY RELATED 06/2018 REVIEW OF SYSTEMS REVIEWED BY: PROVIDER: . CONSTITUTIONAL: ANY CHANGE IN YOUR MEDICAL CONDITION? NO . CHILLS NO . FEVER NO . INFECTION: DO YOU HAVE NEW INFECTIONS? YES, UTI, ON ANTIBIOTICS SINCE 04/05/19, ASYMPTOMATIC - DR. BHARDWAJ AWARE, OK TO PROCEDD . DO YOU HAVE HISTORY OF MRSA? NO . MUSCULOSKELETAL: ANY NEW PATTERNS OF PAIN OR NUMBNESS? NO . GASTROENTEROLOGY: ANY NEW CHANGE IN BOWEL CONTROL? NO . GENITOURINARY: ANY NEW CHANGE IN BLADDER CONTROL? YES, STATES CYSTOSCOPY SCHEDULES FOR AUGUST - RESTRICTED URINATION . IS THERE A CHANCE YOU COULD BE ? NO . HEMATOLOGY/LYMPH: DO YOU TAKE ANY BLOOD THINNERS? (FOR EXAMPLE- COUMADIN, PLAVIX, AGGRENOX, PLATEL, PRADAXA, OR XARELTO) NO . WHEN WAS YOUR LAST DOSE? DATE: TIME: . NEUROLOGY: HAVE YOU FALLEN IN THE PAST 12 MONTHS? YES, STATES FALL 5 DAYS AGO WHILE FISHING, SLIPPED AND TRIPPED. HAS BRUISED KNEE AND CUT TO LEFT ARM. STATES NO OTHER INJURIES, NO ED VISIT . ANY NEW EXTREMITY NUMBNESS OR WEAKNESS? NO . CARDIOLOGY: DO YOU HAVE A PACEMAKER OR DEFIBRILLATOR? YES, PACEMAKER/DEFIBRILLATOR . RESPIRATORY: HAVE YOU BEEN SICK IN THE PAST WEEK? NO . FEVER NO . FLU LIKE SYMPTOMS? NO . COUGH NO . INTEGUMENTARY: DO YOU HAVE ANY RASHES OR OPEN SORES? YES, HEALING CUT TO LEFT ARM FROM FALLING ON A STONE . ALLERGIC/IMMUNO: ARE YOU ALLERGIC TO IV DYE? NO . ANY NEW ALLERGIES? NO . PSYCHIATRIC: DO YOU HAVE THOUGHTS OF HURTING YOURSELF OR SOMEONE ELSE? NO . ARE YOU ABUSED, NEGLECTED, OR IN AN UNSAFE ENVIRONMENT? NO . ENDOCRINOLOGY: ARE YOU DIABETIC? YES, FSBS 99 AT 0630 TODAY . OTHER: DO YOU NEED ANY PRESCRIPTIONS? NO . IF YES, PLEASE LIST: ____ . ANY NEW PROBLEMS WITH YOUR MEDICATIONS? NO . WHEN DID YOU LAST EAT? ____04/17/19 0700 . WHEN DID YOU LAST DRINK? ____04/17/19 1100 . WHAT DID YOU LAST DRINK? ____WATER . NAME OF PERSON DRIVING YOU HOME? ____DAUGHTER - KEVYN . DO YOU HAVE ANY OTHER QUESTIONS OR CONCERNS NO . VITAL SIGNS WT 258 LBS, HT 72 IN, BMI 34.99 INDEX, BP 134/65 MM HG, HR 58 /MIN, RR 18 /MIN, TEMP 97.2 F, OXYGEN SAT % 93%, SAFE IN ENV? (Y/N) YES, NA INITIALS AW 1328, REVIEWED BY: JS. ASSESSMENTS MYALGIA, OTHER SITE - M79.18 (PRIMARY) PROCEDURES PN WORKMANS' COMP OPINION IN YOUR OPINION, WAS THE INCIDENT THAT THE PATIENT DESCRIBED THE COMPETENT MEDICAL CAUSE OF THIS INJURY/ILLNESS? YES ARE THE PATIENT'S COMPLAINTS CONSISTENT WITH HIS/HER HISTORY OF THE INJURY/ILLNESS? YES IS THE PATIENT'S HISTORY OF THE INJURY/ILLNESS CONSISTENT WITH YOUR OBJECTIVE FINDING? YES WHAT IS THE PERCENTAGE OF TEMPORARY IMPAIRMENT? MODERATE TO MARKED = 66.7% IS THE PATIENT WORKING? NO DOCTOR ON SITE: THELMA NUNEZ MD PN TRIGGER POINT INJECTION WITH STEROIDS PRE PROCEDURE DIAGNOSIS 1. MYALGIA 2. PAIN AT BILATERAL THORACIC AREA POST PROCEDURE DIAGNOSIS 1. MYALGIA 2. PAIN AT BILATERAL THORACIC AREA PROCEDURE TRIGGER POINT INJECTION AT BILATERAL THORACIC AREA SURGEON DR. THELMA BHARDWAJ AUTOCLAVE OPERATOR NONE ANESTHESIA LOCAL PRE PROCEDURE NOTE THE PATIENT HAS A HISTORY OF CHRONIC PAIN AT THE RIGHT AND LEFT THORACIC AREA. I EVALUATE THE PATIENT AND REVIEWED THE CHART. THERE IS EVIDENCE OF BANDS OF TISSUE WITH RESTRICTION OF MOVEMENT AND PRESENCE OF TRIGGER POINT AT THE AFFECTED AREA. I WENT OVER THE RISKS, ALTERNATIVES, AND BENEFITS ASSOCIATED WITH THIS PROCEDURE. THE PATIENT WOULD LIKE TO PROCEED AND GIVE CONSENT TO PERFORMED THE PROCEDURE. THE PATIENT DENIES UNEXPLAINABLE WEIGHT LOSS, FEVER, CHILLS, OR NEW CHANGES IN URINARY OR BOWEL CONTROL DESCRIPTION OF PROCEDURE THE PATIENT WAS BROUGHT TO THE PROCEDURE ROOM AND PLACED IN THE SITTING POSITION. THE AREA WAS CLEANED WITH ALCOHOL. THE PROCEDURE WAS DONE USING ASEPTIC STERILE TECHNIQUE. I CHECKED LATERALITY AND THE LEVEL WHERE THE PROCEDURE WAS GOING TO BE PERFORMED WITH THE PATIENT AND THE SUPPORTING STAFF AT THE MOMENT OF THE TIME OUT IN THE PROCEDURE ROOM. USING A 25-GAUGE NEEDLE, TRIGGER POINTS WERE INJECTED AT THE RIGHT AND LEFT THORACIC AREA WITH A TOTAL OF 40 ML OF BUPIVACAINE 0.25% AND KENALOG 40 MG. THERE WAS NO EVIDENCE OF BLOOD, PARESTHESIA OR CEREBROSPINAL FLUID DURING THE PROCEDURE. THE PATIENT WAS SENT TO THE RECOVERY ROOM. THE PATIENT WAS MOVING THE EXTREMITIES AND DOING WELL. THERE WAS NO COMPLICATION DURING THE PROCEDURE POST PROCEDURE NOTE THE PATIENT WILL BE SEEN IN A FOLLOW UP IN THE NEXT FEW WEEKS. INSTRUCTIONS WERE GIVEN, QUESTIONS WERE ANSWERED, AND THE PATIENT EXPRESSED UNDERSTANDING AND AGREES WITH THE PLAN. I, RAYO ABRAMS, DOCUMENTED THE ABOVE INFORMATION ACTING A SCRIBE FOR DR. BHARDWAJ. I HAVE REVIEWED THE ABOVE DOCUMENT, WRITTEN BY RAYO ABRAMS SCRIBWillard AND I VERIFY THAT IT IS ACCURATE. PROCEDURE CODES 60423 INJ TRIGGER POINT /2 MUSC DISPOSITION & COMMUNICATION FOLLOW UP 3 WEEKS ELECTRONICALLY SIGNED BY THELMA BHARDWAJ MD, MD ON 04/27/2019 AT 01:53 PM EDT DISCLAIMER : THIS IS A VISIT SUMMARY EXTRACTED FROM THE [employer] CHART. IT IS NOT A COPY OF THE [employer] PROGRESS NOTE. JULIETA
== END ==
LOC: M PAIN 13:15
PROVIDERS: ATTEND Anesthesiology
DX: M79.18 Myalgia, other site (principal); J44.9 Chronic obstructive pulmonary disease, unspecified; I50.42 Chronic combined systolic (congestive) and diastolic (congestive) heart failure; E78.5 Hyperlipidemia, unspecified; I11.0 Hypertensive heart disease with heart failure; K21.9 Gastro-esophageal reflux disease without esophagitis; M54.5 Low back pain; M25.561 Pain in right knee; R42 Dizziness and giddiness; E66.9 Obesity, unspecified; F10.21 Alcohol dependence, in remission; Z95.810 Presence of automatic (implantable) cardiac defibrillator; Z79.891 Long term (current) use of opiate analgesic; Z79.84 Long term (current) use of oral hypoglycemic drugs; Z79.899 Other long term (current) drug therapy; Z96.651 Presence of right artificial knee joint; Z98.1 Arthrodesis status; Z87.891 Personal history of nicotine dependence; Z91.048 Other nonmedicinal substance allergy status; Z91.018 Allergy to other foods; Z88.6 Allergy status to analgesic agent; Z88.8 Allergy status to other drugs, medicaments and biological substances
CPT/HCPCS: 20552; J3301

== ENCOUNTER → 2019-04-25 | Outpatient (CLI) | payer OTHER ==
[~2019-04-25] MED LIST changes: -BUPIVACAINE HCL 0.25% 10 ML VIAL As Ordered ONE; -BUPIVACAINE HCL 0.25% 30 ML VIAL As Ordered ONE; -TRIAMCINOLONE ACETONIDE SUSP 40 MG/ML VIAL (J3301) As Ordered ONE
== END ==
LOC: M LAB 13:38
PROVIDERS: ATTEND Nurse Practitioner Family
DX: Z12.5 Encounter for screening for malignant neoplasm of prostate (principal)

== ENCOUNTER 2019-04-26 12:26 | Outpatient (RCR) | payer OTHER ==
[~2019-04-26 12:26] MED LIST changes: -OXYB5TAB PO; +OXYB5TAB2 PO
== END 2019-05-26 ==
LOC: M PT 12:26
PROVIDERS: ATTEND Orthopaedic Surgery
DX: Z47.89 Encounter for other orthopedic aftercare (principal); M25.561 Pain in right knee; Z96.651 Presence of right artificial knee joint

== ENCOUNTER → 2019-05-25 | Outpatient (CLI) | payer OTHER ==
--- NOTE | 2019-05-30 02:11 | ECWPNPC ---
PATIENT NAME: CAMILO ARMSTRONG : 1960 GENDER: MALE VISIT DATE: 05/25/2019 DISCHARGE DATE: 05/25/19 1210 VISIT LOCKED DATE TIME: PHYSICIAN: ARCELIA WEBER RESOURCE: ARCELIA WEBER REASON FOR APPOINTMENT 1. NCA POST THORACIC TPI HISTORY OF PRESENT ILLNESS HISTORY OF PRESENT ILLNESS: PAIN THE PATIENT DESCRIBES THE PAIN... 59 YEAR OLD MALE IN FOR POST TPI FOLLOW UP. HE FEELS THE PROCEDURE WORKED WELL AND RATES HIS PAIN PRIOR TO THE PROCEDURE AT A 8/10 AND POST PROCEDURE AT A 5/10. HE RATES HIS PAIN AT A 7/10 CURRENTLY AND DESCRIBES IT ACHING, BURNING, SORE, AND STABBING. FALL RISK SCREENING: SCREENING :NO FALLS REPORTED IN THE LAST YEAR CURRENT MEDICATIONS TAKING MECLIZINE HCL 25 MG TABLET 1 TABLET ORALLY 1-2 TIMES DAILY NEEDED TAKING LISINOPRIL 2.5MG TABLET 1 TAB ORALLY AT BEDTIME TAKING ASPIRIN 81 MG TABLET DELAYED RELEASE 1 TAB ORALLY DAILY TAKING LIPITOR 80 MG TABLET 1 TABLET ORALLY ONCE A DAY AT BEDTIME TAKING NASACORT AQ 55 MCG/ACT AEROSOL 1 SPRAY IN EACH NOSTRIL NASALLY ONCE A DAY TAKING ADVAIR DISKUS 250-50 MCG/DOSE MISCELLANEOUS 1 INHALATION. ALWAYS RINSE YOUR MOUTH OUT AFTER USE ONCE A DAY TAKING VENTOLIN HFA 108 (90 BASE) MCG/ACT AEROSOL SOLUTION 2 PUFFS INHALATION EVERY 4-6 HOURS NEEDED TAKING NITROSTAT 0.4 MG TABLET SUBLINGUAL 1 TAB SUBLINGUAL TAB1 TAB FOR CHEST PAIN IF NO RELIEF IN 5 MINUTES TAKE 2ND NITRO IF NO RELIEF AFTER 5 MINUTES TAKE 3RD NITRO ER TAKING MIRALAX 17 GM POWDER 17GM ORALLY DAILY NEEDED TAKING MAGNESIUM 64 MG CAPSULE 1 TAB ORALLY BID TAKING MULTIVITAMINS 1 TABLET DIRECTED ORALLY DAILY TAKING ZONISAMIDE 50 MG CAPSULE 1 CAP ORALLY ONCE DAILY TAKING ALDACTONE 25 MG TABLET 1/2 TAB ORALLY DAILY TAKING LASIX 40 MG TABLET 1 TAB ORALLY BID NEEDED TAKING ATENOLOL 50 MG TABLET 1 TABLET ORALLY BID TAKING AMIODARONE HCL 200 MG TABLET 1 TABLET ORALLY BID TAKING POTASSIUM CHLORIDE ER 20 MEQ TABLET EXTENDED RELEASE 1 TABLET WITH FOOD ORALLY BID TAKING AVODART 0.5 MG CAPSULE 1 CAPSULE ORALLY ONCE A DAY TAKING LEVOTHYROXINE SODIUM 25 MCG TABLET TAKE ONE TABLET BY MOUTH EVERY MORNING ON AN EMPTY STOMACH ORALLY ONCE A DAY TAKING OXYBUTYNIN CHLORIDE ER 5 MG TABLET EXTENDED RELEASE 24 HOUR 1 TABLET ORALLY ONCE A DAY TAKING DETROL 2 MG TABLET 1 TABLET ORALLY TWICE A DAY TAKING DRISDOL 77030 UNIT CAPSULE 1 CAPSULE ORALLY EVERY OTHER WEEK TAKING GABAPENTIN 400 MG CAPSULE 1 CAPSULE ORALLY FOUR TIMES DAILY MDD4 TAKING STEGLATRO 5 MG TABLET 1 TABLET ORALLY ONCE A DAY TAKING ZYRTEC 10 MG TABLET 1 TABLET ORALLY ONCE A DAY TAKING COLACE 100 MG CAPSULE 1 CAPSULE ORALLY TWICE DAILY TAKING PERCOCET 5-325 MG TABLET 1 TABLET ORALLY Q 4 HRS PRN PAIN MDD=5 TAKING TIZANIDINE HCL 2 MG TABLET 1 TABLET NEEDED ORALLY FOR SPASMS AND PAIN EVERY 6 HOURS NEEDED MDD3 TAKING TRAMADOL HCL ER 100 MG TABLET EXTENDED RELEASE 24 HOUR 1 TABLET ORALLY ONCE A DAY MDD=1 TAKING VITAMIN D-3 5000 UNIT TABLET 1 TABLET ORALLY ONCE A DAY TAKING METFORMIN HCL 500 MG TABLET TAKE ONE TABLET BY MOUTH EVERY MORNING AND 2 EVERY EVENING WITH DINNER TAKING OMEPRAZOLE 40 MG CAPSULE DELAYED RELEASE 1 CAPSULE ORALLY ONCE A DAY NOT-TAKING ADVAIR DISKUS 250-50 MCG/DOSE AEROSOL POWDER BREATH ACTIVATED INHALE ONE PUFF BY MOUTH EVERY DAY RISNE MOUTH AFTER USE NOT-TAKING FLOMAX 0.4 MG CAPSULE EXTENDED RELEASE 24 HOUR 2 CAPSULE 30 MINUTES AFTER THE SAME MEAL EACH DAY ONCE A DAY, NOTES: 5 DAYS AGO NOT-TAKING KEFLEX 500 MG CAPSULE 1 CAPSULE 1 HOUR PRIOR TO YOUR CYSTOSCOPY ORALLY ONCE, NOTES: HASN'T TAKEN YET NOT-TAKING MACROBID 100 MG CAPSULE 1 CAPSULE WITH FOOD ORALLY EVERY 12 HRS, NOTES: 0630 NOT-TAKING TAMSULOSIN HCL 0.4 MG CAPSULE 1 CAPSULE 30 MINUTES AFTER THE SAME MEAL EACH DAY ORALLY ONCE A DAY NOT-TAKING TRIAMCINOLONE ACETONIDE 55 MCG/ACT AEROSOL USE 1 SPRAY IN EACH NOSTRIL ONCE DAILY NOT-TAKING OXYCODONE-ACETAMINOPHEN 10-325 MG TABLET (SCHEDULE II DRUG) TAKE ONE TABLET BY MOUTH EVERY 4 HOURS NEEDED FOR PAIN AFTER SURGERY MAXIMUM DAILY DOSE SIX TABLETS ORAL NOT-TAKING VITAMIN D3 2000 UNITS TABLET 1 TAB ORALLY ONCE A DAY NOT-TAKING VENLAFAXINE HCL ER 37.5 MG CAPSULE EXTENDED RELEASE 24 HOUR 1 CAP ORALLY ONCE DAILY NOT-TAKING SKELAXIN 800 MG TABLET 1 TABLET ORALLY FOUR TIMES DAY WORKMEN COMP NOT-TAKING XARELTO 10 MG TABLET 1 TABLET WITH FOOD ORALLY ONCE A DAY NOT-TAKING COREG 12.5MG TABLET 1 TAB ORALLY TWICE DAILY NOT-TAKING CYMBALTA 20 MG CAPSULE DELAYED RELEASE PARTICLES 1 CAPSULE ORALLY ONCE A DAY MEDICATION LIST REVIEWED AND RECONCILED WITH THE PATIENT PAST MEDICAL HISTORY COPD- SPIROMETRY- 02/05/14- DECLINES AT THIS TIME CHF (SYSTOLIC AND DIASTOLIC)- CANNY HYPERLIPIDEMIA HYPERTENSION GERD CHRONIC LOW BACK PAIN- W COMP- DR BOJORQUEZ- CHRONIC PAIN MEDS PER [facility] PAIN MANAGEMENT. CHRONIC RT KNEE PAIN VERTIGO (SINCE 1990) OBESITY H/O HEAVY ALCOHOL USE (IN REMISSION) ASCVD 10-YEAR RISK IS 3.6% IN HTE COLONOSCOPY 2009 BILATERAL HYDROCELE EPIDIDYMITIS CYST RIGHT HEPATITIS B (FROM BLOOD TRANSFUSION) PACEMAKER 04/2018 HEART MONITOR -WEARING FOR 1 MONTH - V-TACH V-TAC HOSP 06/21/2018 DENSE LIPOMA DEFIBRILLATOR ALLERGIES RED DYE: RASH - ALLERGY TOMATO: NAUSEA/VOMITING - ALLERGY FINASTERIDE: FLARED CHF - CONTRAINDICATION NSAIDS: CONGESTIVE FAILURE - CONTRAINDICATION VOLTAREN: GEL/ SPASMS/PAIN - ALLERGY LYRICA: CHF - CONTRAINDICATION SURGICAL HISTORY NO PERSONAL OR FHX SEVERE REACTION TO ANESTHESIA R HUMERUS FIXATION 1972 R MEDIAL MENISCECTOMY 1980 DRAINAGE OF R NECK ? PERITONSILAR ABSCESS 1996 S/P AICD PLACMENT 2007 L4-S1 SPINAL DECOMPRESSION WITH INSTRUMENTED POSTERIOR AND INTERBODY FUSION. DUROTOMY REPAIR. (TIMOTHY @ [facility]) 03/2011 EGD-REINDL NML 03/13/10 COLONOSCOPY- REINDL. DIVERTICULOSIS- REPEAT 5-10 YEARS 03/13/10 RIGHT KNEE SURGERY BY ORTHO 02/05 NEW ICD 12/29/16 MASS [id number] AGAIN 02/2018 REMOVAL TUMOR LEFT THORACIC 02/27/18 RIGHT KNEE REPLACEMENT 06/2018 REMOVAL OF TUMOR RIGHT BACK- DR. KAUFMAN 11/24/18 CYSTO 04/30/2019 FAMILY HISTORY FATHER: ALIVE, BYPASS. KIDNEY CANCER HAD KIDNEY REMOVED. METASTATIC CANCER TO LUNGS., DIAGNOSED WITH HEART DISEASE, CANCER, HYPERTENSION MOTHER: ALIVE, HEART DISEASE, OTHER, DIABETES, HYPERTENSION SIBLINGS: 2 BROTHERS HAD BYPASS. SISTER HAS HEART ISSUES SINCE . 1 BROTHER HAD HYDROCELE. 2 BROTHER(S) , 5 SISTER(S) . 1 SON(S) , 1 DAUGHTER(S) - HEALTHY. FATHER-METASTATIC LUNG CA\\\\NMOTHER--HYPOTHYROID\\\\NOLDER BROTHER-STROKE\\\\NSON- ASTHMA. SOCIAL HISTORY GENERAL: TOBACCO USE ARE YOU A:FORMER SMOKER QUIT 2008 SMOKED FOR 33 YRS. 1 PACK PER DAY. EDUCATION LEVEL OF EDUCATION:COLLEGE LANGUAGE LANGUAGES SPOKEN:ARABIC DOMESTIC VIOLENCE DO YOU FEEL SAFE IN YOUR ENVIRONMENT?YES RECREATIONAL DRUG USE DRUG USE?NO EXERCISE: WALKS. LEARNING BARRIERS / SPECIAL NEEDS CHANGE FROM LAST VISIT?NO BARRIERS TO LEARNING?NO HEARING IMPAIRED?YES BILATERAL [place] WORSE ON LEFT VISION IMPAIRED?YES COGNITIVELY IMPAIRED?NO :CORRECTIVE LENSES READINESS TO LEARN?YES LEARNING PREFERENCES?NO LEARNING CAPABILITIES PRESENT?YES EMOTIONAL BARRIERS?NO SPECIAL DEVICES?NO ACCOUNTANT SYSTEMS NEEDED?NO PAIN CLINIC PFS, CLERGY, PUBLIC HEALTH REFERRALS PFS REFERRAL NEEDED?NO CLERGY REFERRAL NEEDED?NO PUBLIC HEALTH REFERRAL NEEDED?NO WAS THE PROVIDER NOTIFIED OF ANY PERTINENT INFO?YES HAS THE PATIENT BEEN EDUCATED REGARDING HIS/HER PLAN OF CARE?YES HAS THE PATIENT BEEN EDUCATED REGARDING PAIN, THE RISK FOR PAIN, THE IMPORTANCE OF EFFECTIVE PAIN MANAGEMENT, AND THE PAIN ASSESSMENT PROCESS?YES LATEX QUESTIONNAIRE LATEX ALLERGY : HAVE YOU EVER DEVELOPED ANY TYPE OF REACTION AFTER HANDLING LATEX PRODUCTS SUCH RUBBER GLOVES, CONDOMS, DIAPHRAGMS, BALLOONS, SOCKS, OR UNDERWEAR?NO LATEX ALLERGY : HAVE YOU EVER DEVELOPED ANY TYPE OF REACTION DURING OR AFTER DENTAL APPOINTMENT, VAGINAL/RECTAL EXAMINATION, SURGICAL PROCEDURE, OR ANY OTHER EXPOSURE?NO DATE ASKED : 01/10/2019 LATEX RISK : HAVE YOU EVER HAD ANY DIFFICULTY BREATHING OR HIVES AFTER EATING OR HANDLING ANY FRUITS, OR VEGETABLES; SUCH KIWI, BANANAS, STONE FRUITS, OR CHESTNUTSNO LATEX RISK : DO YOU HAVE A PREVIOUS PERSONAL HISTORY OF MORE THAN NINE SURGERIES, SPINA BIFIDA, OR REPEATED CATHERIZATIONS? NO LATEX RISK : ARE YOU FREQUENTLY EXPOSED TO LATEX PRODUCTS IN YOUR OCCUPATION?NO CAFFEINE CAFFEINE USE?NO ADVANCE DIRECTIVE ADVANCE DIRECTIVE DISCUSSED WITH PATIENT:YES PT. HAS HCP CHILDREN 1. MARQUITA ARMSTRONG 2. [place] COPY ON FILE WITH [facility] [id number] [facility]URCH MARITAL STATUS: .. ALCOHOL SCREENING DID YOU HAVE A DRINK CONTAINING ALCOHOL IN THE PAST YEAR?NO POINTS0 INTERPRETATIONNEGATIVE SEXUAL HX HAD SEX IN THE LAST 12 MONTHS (VAGINAL, ORAL, OR ANAL)?NO HAVE YOU EVER HAD AN STD?NO 05/09/18 REVIEWED WITH PT. 05/23/18 REVIEWED WITH PT LASREVIEWED WITH PATIENT 07/11/18 1346 JSREVIEWED WITH PATIENT 07/27/18 1108 JSREVIEWED WITH PATIENT 08/22/18 0911 JSREVIEWED WITH PATIENT 04/17/19 1409 JSREVIEWED WITH PT 03/26/2019 0945 LASREVIEWED WITH PATIENT 10/03/18 1335 BVREVIEWED WITH PATIENT 11/23/18 1215 LAS. HOSPITALIZATION/MAJOR DIAGNOSTIC PROCEDURE CHF 2008 DOG BITE 01/2015 RELATED TO SURGERIES [facility] VTAC 06/21/18 SURGERY RELATED 06/2018 REVIEW OF SYSTEMS REVIEWED BY: PROVIDER: LANI CODY . CONSTITUTIONAL: ANY CHANGE IN YOUR MEDICAL CONDITION? NO . CHILLS NO . FEVER NO . INFECTION: DO YOU HAVE NEW INFECTIONS? NO . DO YOU HAVE HISTORY OF MRSA? NO . MUSCULOSKELETAL: ANY NEW PATTERNS OF PAIN OR NUMBNESS? NO . GASTROENTEROLOGY: ANY NEW CHANGE IN BOWEL CONTROL? NO . GENITOURINARY: ANY NEW CHANGE IN BLADDER CONTROL? YES - TROUBLE STARTING THE STREAM AND COMPLETING . IS THERE A CHANCE YOU COULD BE ? NO . HEMATOLOGY/LYMPH: DO YOU TAKE ANY BLOOD THINNERS? (FOR EXAMPLE- COUMADIN, PLAVIX, AGGRENOX, PLATEL, PRADAXA, OR XARELTO) NO . WHEN WAS YOUR LAST DOSE? DATE: TIME: . NEUROLOGY: HAVE YOU FALLEN IN THE PAST 12 MONTHS? NO . ANY NEW EXTREMITY NUMBNESS OR WEAKNESS? NO . CARDIOLOGY: DO YOU HAVE A PACEMAKER OR DEFIBRILLATOR? YES . RESPIRATORY: HAVE YOU BEEN SICK IN THE PAST WEEK? NO . FEVER NO . FLU LIKE SYMPTOMS? NO . COUGH NO . INTEGUMENTARY: DO YOU HAVE ANY RASHES OR OPEN SORES? NO . ALLERGIC/IMMUNO: ARE YOU ALLERGIC TO IV DYE? NO . ANY NEW ALLERGIES? NO . PSYCHIATRIC: DO YOU HAVE THOUGHTS OF HURTING YOURSELF OR SOMEONE ELSE? NO . ARE YOU ABUSED, NEGLECTED, OR IN AN UNSAFE ENVIRONMENT? NO . ENDOCRINOLOGY: ARE YOU DIABETIC? NO . OTHER: DO YOU NEED ANY PRESCRIPTIONS? NO . IF YES, PLEASE LIST: ____ . ANY NEW PROBLEMS WITH YOUR MEDICATIONS? NO . WHEN DID YOU LAST EAT? ____ . WHEN DID YOU LAST DRINK? ____ . WHAT DID YOU LAST DRINK? ____ . NAME OF PERSON DRIVING YOU HOME? ____ . DO YOU HAVE ANY OTHER QUESTIONS OR CONCERNS NO . VITAL SIGNS WT 264.8 LBS, HT 72 IN, BMI 35.91 INDEX, BP 119/56 MM HG, HR 57 /MIN, RR 18 /MIN, TEMP 97.3 F, OXYGEN SAT % 93%, NA INITIALS AW 1135, REVIEWED BY: LS. EXAMINATION GENERAL EXAMINATION: GENERALNO ACUTE DISTRESS, WELL NOURISHED AND HYDRATED. PSYCHAPPROPRIATE MOOD AND AFFECT . LUNGS:CLEAR TO AUSCULTATION BILATERALLY, NO WHEEZES, RHONCHI, RALES. HEART:NO MURMURS, REGULAR RATE AND RHYTHM. ASSESSMENTS MYALGIA, OTHER SITE - M79.18 (PRIMARY) TREATMENT MYALGIA, OTHER SITE CLINICAL NOTES: 59 YEAR OLD MALE IN FOR POST TPI W/C FOLLOW UP. GIVEN PRESENTING SYMPTOMS AND RESULTS OF PHYSICAL EXAMINATION RECOMMENDED FOLLOW UP IN 1 MONTH. PATIENT HAS EXPRESSED UNDERSTANDING OF AND WAS IN AGREEMENT WITH TREATMENT PLAN. GIVEN TIME TO ASK QUESTIONS AND EXPRESS CONCERNS.ISTOP REGISTRY REVIEWED AND DEMONSTRATES COMPLLIANCE. (REF # [id number] ) BRINGS IN MEDICATIONS WHICH IS APPROPRIATE FOR WHAT WAS DISPENSED. RECENT URINE TOXICOLOGY REVIEWED. NO UNAUTHORIZED MEDICATIONS. NO ILLICIT SUBSTANCES AND PRESCRIBED MEDICATIONS WERE PRESENT. ,. PROCEDURES PN WORKMANS' COMP OPINION IN YOUR OPINION, WAS THE INCIDENT THAT THE PATIENT DESCRIBED THE COMPETENT MEDICAL CAUSE OF THIS INJURY/ILLNESS? YES ARE THE PATIENT'S COMPLAINTS CONSISTENT WITH HIS/HER HISTORY OF THE INJURY/ILLNESS? YES IS THE PATIENT'S HISTORY OF THE INJURY/ILLNESS CONSISTENT WITH YOUR OBJECTIVE FINDING? YES WHAT IS THE PERCENTAGE OF TEMPORARY IMPAIRMENT? MODERATE TO MARKED = 66.7% IS THE PATIENT WORKING? NO DOCTOR ON SITE: THELMA NUNEZ MD PROCEDURE CODES FA211 ESTABILISHED PATIENT [facility] CHARGE DISPOSITION & COMMUNICATION FOLLOW UP 4 WEEKS (REASON: W/C CHRONIC PAIN) ELECTRONICALLY SIGNED BY BEN AGUIRRE ON 05/29/2019 AT 08:55 AM EDT DISCLAIMER : THIS IS A VISIT SUMMARY EXTRACTED FROM THE [facility] CHART. IT IS NOT A COPY OF THE [facility] PROGRESS NOTE. JULIETA
== END ==
LOC: M PAIN 11:00
PROVIDERS: ATTEND Family Medicine
DX: M79.18 Myalgia, other site (principal); I50.9 Heart failure, unspecified; E11.9 Type 2 diabetes mellitus without complications; Z79.82 Long term (current) use of aspirin; Z79.84 Long term (current) use of oral hypoglycemic drugs; Z79.891 Long term (current) use of opiate analgesic; Z79.899 Other long term (current) drug therapy; Z87.891 Personal history of nicotine dependence; Z88.8 Allergy status to other drugs, medicaments and biological substances; Z91.048 Other nonmedicinal substance allergy status; Z91.018 Allergy to other foods

== ENCOUNTER → 2019-06-01 | Outpatient (CLI) | payer OTHER ==
[~2019-06-01] MED LIST changes: +BUPIVACAINE HCL 0.25% 10 ML VIAL As Ordered ONE; +BUPIVACAINE HCL 0.25% 30 ML VIAL As Ordered ONE; +TRIAMCINOLONE ACETONIDE SUSP 40 MG/ML VIAL (J3301) As Ordered ONE
--- NOTE | 2019-06-15 02:07 | ECWPNPC ---
PATIENT NAME: CAMILO ARMSTRONG : 1960 GENDER: MALE VISIT DATE: 06/01/2019 DISCHARGE DATE: 06/01/19 1105 VISIT LOCKED DATE TIME: PHYSICIAN: THELMA BHARDWAJ MD RESOURCE: THELMA BHARDWAJ MD REASON FOR APPOINTMENT 1. TPI LOW BACK WITH STATE INSURANCE FUND W/C. HISTORY OF PRESENT ILLNESS HISTORY OF PRESENT ILLNESS: PAIN THE PATIENT DESCRIBES THE PAIN... FALL RISK SCREENING: SCREENING :NO FALLS REPORTED IN THE LAST YEAR CURRENT MEDICATIONS TAKING MECLIZINE HCL 25 MG TABLET 1 TABLET ORALLY 1-2 TIMES DAILY NEEDED TAKING LISINOPRIL 2.5MG TABLET 1 TAB ORALLY AT BEDTIME TAKING ASPIRIN 81 MG TABLET DELAYED RELEASE 1 TAB ORALLY DAILY TAKING LIPITOR 80 MG TABLET 1 TABLET ORALLY ONCE A DAY AT BEDTIME TAKING NASACORT AQ 55 MCG/ACT AEROSOL 1 SPRAY IN EACH NOSTRIL NASALLY ONCE A DAY TAKING ADVAIR DISKUS 250-50 MCG/DOSE MISCELLANEOUS 1 INHALATION. ALWAYS RINSE YOUR MOUTH OUT AFTER USE ONCE A DAY TAKING VENTOLIN HFA 108 (90 BASE) MCG/ACT AEROSOL SOLUTION 2 PUFFS INHALATION EVERY 4-6 HOURS NEEDED TAKING NITROSTAT 0.4 MG TABLET SUBLINGUAL 1 TAB SUBLINGUAL TAB1 TAB FOR CHEST PAIN IF NO RELIEF IN 5 MINUTES TAKE 2ND NITRO IF NO RELIEF AFTER 5 MINUTES TAKE 3RD NITRO ER TAKING MIRALAX 17 GM POWDER 17GM ORALLY DAILY NEEDED TAKING MAGNESIUM 64 MG CAPSULE 1 TAB ORALLY BID TAKING MULTIVITAMINS 1 TABLET DIRECTED ORALLY DAILY TAKING ZONISAMIDE 50 MG CAPSULE 1 CAP ORALLY ONCE DAILY TAKING ALDACTONE 25 MG TABLET 1/2 TAB ORALLY DAILY TAKING LASIX 40 MG TABLET 1 TAB ORALLY BID NEEDED TAKING ATENOLOL 50 MG TABLET 1 TABLET ORALLY BID TAKING AMIODARONE HCL 200 MG TABLET 1 TABLET ORALLY BID TAKING POTASSIUM CHLORIDE ER 20 MEQ TABLET EXTENDED RELEASE 1 TABLET WITH FOOD ORALLY BID TAKING AVODART 0.5 MG CAPSULE 1 CAPSULE ORALLY ONCE A DAY TAKING LEVOTHYROXINE SODIUM 25 MCG TABLET TAKE ONE TABLET BY MOUTH EVERY MORNING ON AN EMPTY STOMACH ORALLY ONCE A DAY TAKING OXYBUTYNIN CHLORIDE ER 5 MG TABLET EXTENDED RELEASE 24 HOUR 1 TABLET ORALLY ONCE A DAY TAKING DETROL 2 MG TABLET 1 TABLET ORALLY TWICE A DAY TAKING DRISDOL 47575 UNIT CAPSULE 1 CAPSULE ORALLY EVERY OTHER WEEK TAKING STEGLATRO 5 MG TABLET 1 TABLET ORALLY ONCE A DAY TAKING ZYRTEC 10 MG TABLET 1 TABLET ORALLY ONCE A DAY TAKING COLACE 100 MG CAPSULE 1 CAPSULE ORALLY TWICE DAILY TAKING TRAMADOL HCL ER 100 MG TABLET EXTENDED RELEASE 24 HOUR 1 TABLET ORALLY ONCE A DAY MDD=1 TAKING VITAMIN D-3 5000 UNIT TABLET 1 TABLET ORALLY ONCE A DAY TAKING METFORMIN HCL 500 MG TABLET TAKE ONE TABLET BY MOUTH EVERY MORNING AND 2 EVERY EVENING WITH DINNER , NOTES: 05/31/19@2100 TAKING OMEPRAZOLE 40 MG CAPSULE DELAYED RELEASE 1 CAPSULE ORALLY ONCE A DAY TAKING GABAPENTIN 400 MG CAPSULE 1 CAPSULE ORALLY FOUR TIMES DAILY MDD4 TAKING PERCOCET 5-325 MG TABLET 1 TABLET ORALLY Q 4 HRS PRN PAIN MDD=5, NOTES: 0630 TAKING TIZANIDINE HCL 2 MG TABLET 1 TABLET NEEDED ORALLY FOR SPASMS AND PAIN EVERY 6 HOURS NEEDED MDD3, NOTES: 629 DISCONTINUED ADVAIR DISKUS 250-50 MCG/DOSE AEROSOL POWDER BREATH ACTIVATED INHALE ONE PUFF BY MOUTH EVERY DAY RISNE MOUTH AFTER USE DISCONTINUED FLOMAX 0.4 MG CAPSULE EXTENDED RELEASE 24 HOUR 2 CAPSULE 30 MINUTES AFTER THE SAME MEAL EACH DAY ONCE A DAY, NOTES: 5 DAYS AGO DISCONTINUED KEFLEX 500 MG CAPSULE 1 CAPSULE 1 HOUR PRIOR TO YOUR CYSTOSCOPY ORALLY ONCE, NOTES: HASN'T TAKEN YET DISCONTINUED MACROBID 100 MG CAPSULE 1 CAPSULE WITH FOOD ORALLY EVERY 12 HRS, NOTES: 629 DISCONTINUED TAMSULOSIN HCL 0.4 MG CAPSULE 1 CAPSULE 30 MINUTES AFTER THE SAME MEAL EACH DAY ORALLY ONCE A DAY DISCONTINUED TRIAMCINOLONE ACETONIDE 55 MCG/ACT AEROSOL USE 1 SPRAY IN EACH NOSTRIL ONCE DAILY DISCONTINUED OXYCODONE-ACETAMINOPHEN 10-325 MG TABLET (SCHEDULE II DRUG) TAKE ONE TABLET BY MOUTH EVERY 4 HOURS NEEDED FOR PAIN AFTER SURGERY MAXIMUM DAILY DOSE SIX TABLETS ORAL DISCONTINUED VITAMIN D3 2000 UNITS TABLET 1 TAB ORALLY ONCE A DAY DISCONTINUED VENLAFAXINE HCL ER 37.5 MG CAPSULE EXTENDED RELEASE 24 HOUR 1 CAP ORALLY ONCE DAILY DISCONTINUED SKELAXIN 800 MG TABLET 1 TABLET ORALLY FOUR TIMES DAY WORKMEN COMP DISCONTINUED XARELTO 10 MG TABLET 1 TABLET WITH FOOD ORALLY ONCE A DAY DISCONTINUED COREG 12.5MG TABLET 1 TAB ORALLY TWICE DAILY DISCONTINUED CYMBALTA 20 MG CAPSULE DELAYED RELEASE PARTICLES 1 CAPSULE ORALLY ONCE A DAY MEDICATION LIST REVIEWED AND RECONCILED WITH THE PATIENT PAST MEDICAL HISTORY COPD- SPIROMETRY- 02/05/14- DECLINES AT THIS TIME CHF (SYSTOLIC AND DIASTOLIC)- CANNY HYPERLIPIDEMIA HYPERTENSION GERD CHRONIC LOW BACK PAIN- W COMP- DR BOJORQUEZ- CHRONIC PAIN MEDS PER [facility] PAIN MANAGEMENT. CHRONIC RT KNEE PAIN VERTIGO (SINCE 1990) OBESITY H/O HEAVY ALCOHOL USE (IN REMISSION) ASCVD 10-YEAR RISK IS 3.6% IN HTE COLONOSCOPY 2009 BILATERAL HYDROCELE EPIDIDYMITIS CYST RIGHT HEPATITIS B (FROM BLOOD TRANSFUSION) PACEMAKER 04/2018 HEART MONITOR -WEARING FOR 1 MONTH - V-TACH V-TAC HOSP 06/21/2018 DENSE LIPOMA DEFIBRILLATOR ALLERGIES RED DYE: RASH - ALLERGY TOMATO: NAUSEA/VOMITING - ALLERGY FINASTERIDE: FLARED CHF - CONTRAINDICATION NSAIDS: CONGESTIVE FAILURE - CONTRAINDICATION VOLTAREN: GEL/ SPASMS/PAIN - ALLERGY LYRICA: CHF - CONTRAINDICATION SURGICAL HISTORY NO PERSONAL OR FHX SEVERE REACTION TO ANESTHESIA R HUMERUS FIXATION 1972 R MEDIAL MENISCECTOMY 1980 DRAINAGE OF R NECK ? PERITONSILAR ABSCESS 1996 S/P AICD PLACMENT 2007 L4-S1 SPINAL DECOMPRESSION WITH INSTRUMENTED POSTERIOR AND INTERBODY FUSION. DUROTOMY REPAIR. (TIMOTHY @ [facility]) 03/2011 EGD-REINDL NML 03/13/10 COLONOSCOPY- REINDL. DIVERTICULOSIS- REPEAT 5-10 YEARS 03/13/10 RIGHT KNEE SURGERY BY ORTHO 02/05 NEW ICD 12/29/16 MASS [id number] AGAIN 02/2018 REMOVAL TUMOR LEFT THORACIC 02/27/18 RIGHT KNEE REPLACEMENT 06/2018 REMOVAL OF TUMOR RIGHT BACK- DR. KAUFMAN 11/24/18 CYSTO 04/30/2019 FAMILY HISTORY FATHER: ALIVE, BYPASS. KIDNEY CANCER HAD KIDNEY REMOVED. METASTATIC CANCER TO LUNGS., DIAGNOSED WITH HYPERTENSION, UNSPECIFIED HEART DISEASE, OTHER MALIGNANT NEOPLASM OF UNSPECIFIED SITE MOTHER: ALIVE, DIABETES, HYPERTENSION, UNSPECIFIED HEART DISEASE, OTHER SPECIFIED CONDITIONS INFLUENCING HEALTH STATUS SIBLINGS: 2 BROTHERS HAD BYPASS. SISTER HAS HEART ISSUES SINCE . 1 BROTHER HAD HYDROCELE. 2 BROTHER(S) , 5 SISTER(S) . 1 SON(S) , 1 DAUGHTER(S) - HEALTHY. FATHER-METASTATIC LUNG CA\\\\NMOTHER--HYPOTHYROID\\\\NOLDER BROTHER-STROKE\\\\NSON- ASTHMA. SOCIAL HISTORY GENERAL: TOBACCO USE ARE YOU A:FORMER SMOKER QUIT 2007 SMOKED FOR 33 YRS. 1 PACK PER DAY. EDUCATION LEVEL OF EDUCATION:COLLEGE LANGUAGE LANGUAGES SPOKEN:KAZAKH DOMESTIC VIOLENCE DO YOU FEEL SAFE IN YOUR ENVIRONMENT?YES RECREATIONAL DRUG USE DRUG USE?NO EXERCISE: WALKS. LEARNING BARRIERS / SPECIAL NEEDS CHANGE FROM LAST VISIT?NO BARRIERS TO LEARNING?NO HEARING IMPAIRED?YES BILATERAL STEBBINS WORSE ON LEFT VISION IMPAIRED?YES COGNITIVELY IMPAIRED?NO :CORRECTIVE LENSES READINESS TO LEARN?YES LEARNING PREFERENCES?NO LEARNING CAPABILITIES PRESENT?YES EMOTIONAL BARRIERS?NO SPECIAL DEVICES?NO SHIPPING HAND NEEDED?NO PAIN CLINIC PFS, CLERGY, PUBLIC HEALTH REFERRALS PFS REFERRAL NEEDED?NO CLERGY REFERRAL NEEDED?NO PUBLIC HEALTH REFERRAL NEEDED?NO WAS THE PROVIDER NOTIFIED OF ANY PERTINENT INFO?YES HAS THE PATIENT BEEN EDUCATED REGARDING HIS/HER PLAN OF CARE?YES HAS THE PATIENT BEEN EDUCATED REGARDING PAIN, THE RISK FOR PAIN, THE IMPORTANCE OF EFFECTIVE PAIN MANAGEMENT, AND THE PAIN ASSESSMENT PROCESS?YES LATEX QUESTIONNAIRE LATEX ALLERGY : HAVE YOU EVER DEVELOPED ANY TYPE OF REACTION AFTER HANDLING LATEX PRODUCTS SUCH RUBBER GLOVES, CONDOMS, DIAPHRAGMS, BALLOONS, SOCKS, OR UNDERWEAR?NO LATEX ALLERGY : HAVE YOU EVER DEVELOPED ANY TYPE OF REACTION DURING OR AFTER DENTAL APPOINTMENT, VAGINAL/RECTAL EXAMINATION, SURGICAL PROCEDURE, OR ANY OTHER EXPOSURE?NO LATEX RISK : HAVE YOU EVER HAD ANY DIFFICULTY BREATHING OR HIVES AFTER EATING OR HANDLING ANY FRUITS, OR VEGETABLES; SUCH KIWI, BANANAS, STONE FRUITS, OR CHESTNUTSNO LATEX RISK : DO YOU HAVE A PREVIOUS PERSONAL HISTORY OF MORE THAN NINE SURGERIES, SPINA BIFIDA, OR REPEATED CATHERIZATIONS? NO LATEX RISK : ARE YOU FREQUENTLY EXPOSED TO LATEX PRODUCTS IN YOUR OCCUPATION?NO DATE ASKED : 06/01/2019 CAFFEINE CAFFEINE USE?NO ADVANCE DIRECTIVE ADVANCE DIRECTIVE DISCUSSED WITH PATIENT:YES PT. HAS HCP CHILDREN 1. MARQUITA ARMSTRONG 2. [place] COPY ON FILE WITH [facility] [id number] EVANGELICAL MARITAL STATUS: .. ALCOHOL SCREENING DID YOU HAVE A DRINK CONTAINING ALCOHOL IN THE PAST YEAR?NO POINTS0 INTERPRETATIONNEGATIVE SEXUAL HX HAD SEX IN THE LAST 12 MONTHS (VAGINAL, ORAL, OR ANAL)?NO HAVE YOU EVER HAD AN STD?NO 05/09/18 REVIEWED WITH PT. 05/23/18 REVIEWED WITH PT LASDEENAD WITH PATIENT 07/11/18 1346 JSREVIEWED WITH PATIENT 07/27/18 1108 JSREVIEWED WITH PATIENT 08/22/18 0911 JSREVIEWED WITH PATIENT 04/17/19 1409 JSREVIEWED WITH PT 03/26/2019 0945 LASREVIEWED WITH PATIENT 10/03/18 1335 BVREVIEWED WITH PATIENT 11/23/18 1215 LAS. HOSPITALIZATION/MAJOR DIAGNOSTIC PROCEDURE CHF 2008 DOG BITE 01/2015 RELATED TO [place] [facility] [place]18 SURGERY RELATED 06/2018 REVIEW OF SYSTEMS REVIEWED BY: PROVIDER: . CONSTITUTIONAL: ANY CHANGE IN YOUR MEDICAL CONDITION? NO . CHILLS NO . FEVER NO . INFECTION: DO YOU HAVE NEW INFECTIONS? NO . DO YOU HAVE HISTORY OF MRSA? NO . MUSCULOSKELETAL: ANY NEW PATTERNS OF PAIN OR NUMBNESS? NO . GASTROENTEROLOGY: ANY NEW CHANGE IN BOWEL CONTROL? NO . GENITOURINARY: ANY NEW CHANGE IN BLADDER CONTROL? YES . IS THERE A CHANCE YOU COULD BE ? NO . HEMATOLOGY/LYMPH: DO YOU TAKE ANY BLOOD THINNERS? (FOR EXAMPLE- COUMADIN, PLAVIX, AGGRENOX, PLATEL, PRADAXA, OR XARELTO) NO . WHEN WAS YOUR LAST DOSE? DATE: TIME: . NEUROLOGY: HAVE YOU FALLEN IN THE PAST 12 MONTHS? YES . ANY NEW EXTREMITY NUMBNESS OR WEAKNESS? NO . CARDIOLOGY: DO YOU HAVE A PACEMAKER OR DEFIBRILLATOR? NO . RESPIRATORY: HAVE YOU BEEN SICK IN THE PAST WEEK? NO . FEVER NO . FLU LIKE SYMPTOMS? NO . COUGH NO . INTEGUMENTARY: DO YOU HAVE ANY RASHES OR OPEN SORES? NO . ALLERGIC/IMMUNO: ARE YOU ALLERGIC TO IV DYE? NO . ANY NEW ALLERGIES? NO . PSYCHIATRIC: DO YOU HAVE THOUGHTS OF HURTING YOURSELF OR SOMEONE ELSE? NO . ARE YOU ABUSED, NEGLECTED, OR IN AN UNSAFE ENVIRONMENT? NO . ENDOCRINOLOGY: ARE YOU DIABETIC? NO . OTHER: DO YOU NEED ANY PRESCRIPTIONS? NO . IF YES, PLEASE LIST: ____ . ANY NEW PROBLEMS WITH YOUR MEDICATIONS? NO . WHEN DID YOU LAST EAT? ____05/31/19 . WHEN DID YOU LAST DRINK? ____0630 . WHAT DID YOU LAST DRINK? ____WATER . NAME OF PERSON DRIVING YOU HOME? ____KEVYN HUMPHRIESON . DO YOU HAVE ANY OTHER QUESTIONS OR CONCERNS NO . VITAL SIGNS WT 263.8 LBS, HT 72 IN, BMI 35.77 INDEX, BP 140/63 MM HG, HR 57 /MIN, RR 18 /MIN, TEMP 97.0 F, OXYGEN SAT % 96, SAFE IN ENV? (Y/N) YES, NA INITIALS IN 09:12, REVIEWED BY: AMY. ASSESSMENTS MYALGIA, OTHER SITE - M79.18 (PRIMARY) PROCEDURES PN WORKMANS' COMP OPINION IN YOUR OPINION, WAS THE INCIDENT THAT THE PATIENT DESCRIBED THE COMPETENT MEDICAL CAUSE OF THIS INJURY/ILLNESS? YES ARE THE PATIENT'S COMPLAINTS CONSISTENT WITH HIS/HER HISTORY OF THE INJURY/ILLNESS? YES IS THE PATIENT'S HISTORY OF THE INJURY/ILLNESS CONSISTENT WITH YOUR OBJECTIVE FINDING? YES WHAT IS THE PERCENTAGE OF TEMPORARY IMPAIRMENT? MODERATE TO MARKED = 66.7% IS THE PATIENT WORKING? NO DOCTOR ON SITE: THELMA NUNEZ MD PN TRIGGER POINT INJECTION WITH STEROIDS PRE PROCEDURE DIAGNOSIS 1. MYALGIA 2. PAIN AT BILATERAL LOW BACK AREA. POST PROCEDURE DIAGNOSIS 1. MYALGIA 2. PAIN AT BILATERAL LOW BACK AREA. PROCEDURE TRIGGER POINT INJECTION AT RIGHT AND LEFT LOW BACK AREA. SURGEON DR. THELMA BHARDWAJ HEAD BUYER TOBACCO NONE ANESTHESIA LOCAL PRE PROCEDURE NOTE THE PATIENT HAS A HISTORY OF CHRONIC PAIN AT THE RIGHT AND LEFT LOW BACK AREA. I EVALUATED THE PATIENT AND REVIEWED THE CHART. THERE IS EVIDENCE OF BANDS OF TISSUE WITH RESTRICTION OF MOVEMENT AND PRESENCE OF TRIGGER POINT AT THE AFFECTED AREA. I WENT OVER THE RISKS, ALTERNATIVES, AND BENEFITS ASSOCIATED WITH THIS PROCEDURE. THE PATIENT WOULD LIKE TO PROCEED AND GIVES CONSENT TO PERFORM THE PROCEDURE. THE PATIENT DENIES UNEXPLAINABLE WEIGHT LOSS, FEVER, CHILLS, OR NEW CHANGES IN URINARY OR BOWEL CONTROL DESCRIPTION OF PROCEDURE THE PATIENT WAS BROUGHT TO THE PROCEDURE ROOM AND PLACED IN THE SITTING POSITION. THE AREA WAS CLEANED WITH ALCOHOL. THE PROCEDURE WAS DONE USING ASEPTIC STERILE TECHNIQUE. I CHECKED LATERALITY AND THE LEVEL WHERE THE PROCEDURE WAS GOING TO BE PERFORMED WITH THE PATIENT AND THE SUPPORTING STAFF AT THE MOMENT OF THE TIME OUT IN THE PROCEDURE ROOM. USING A 25-GAUGE NEEDLE, TRIGGER POINTS WERE INJECTED AT THE RIGHT AND LEFT LOW BACK AREA WITH A TOTAL OF 40 ML OF BUPIVACAINE 0.25% AND KENALOG 40 MG. THERE WAS NO EVIDENCE OF BLOOD, PARESTHESIA OR CEREBROSPINAL FLUID DURING THE PROCEDURE. THE PATIENT WAS SENT TO THE RECOVERY ROOM. THE PATIENT WAS MOVING THE EXTREMITIES AND DOING WELL. THERE WAS NO COMPLICATION DURING THE PROCEDURE POST PROCEDURE NOTE THE PATIENT WILL BE SEEN IN A FOLLOW UP IN THE NEXT FEW WEEKS. INSTRUCTIONS WERE GIVEN, QUESTIONS WERE ANSWERED, AND THE PATIENT EXPRESSED UNDERSTANDING AND AGREES WITH THE PLAN. I, MARCY TRAVIS, DOCUMENTED THE ABOVE INFORMATION ACTING A SCRIBE FOR DR. BHARDWAJ. I HAVE REVIEWED THE ABOVE DOCUMENT, WRITTEN BY MARCY DEE AND I VERIFY THAT IT IS ACCURATE. PROCEDURE CODES 58779 INJ TRIGGER POINT / MUSCL DISPOSITION & COMMUNICATION FOLLOW UP 3 WEEKS ELECTRONICALLY SIGNED BY THELMA BHARDWAJ MD, MD ON 06/14/2019 AT 02:05 PM EDT DISCLAIMER : THIS IS A VISIT SUMMARY EXTRACTED FROM THE [employer] CHART. IT IS NOT A COPY OF THE [employer] PROGRESS NOTE. MTDD
== END ==
LOC: M PAIN 09:00
PROVIDERS: ATTEND Anesthesiology
DX: M79.18 Myalgia, other site (principal); J44.9 Chronic obstructive pulmonary disease, unspecified; I50.42 Chronic combined systolic (congestive) and diastolic (congestive) heart failure; E78.5 Hyperlipidemia, unspecified; I11.0 Hypertensive heart disease with heart failure; K21.9 Gastro-esophageal reflux disease without esophagitis; M54.5 Low back pain; M25.561 Pain in right knee; E66.9 Obesity, unspecified; R42 Dizziness and giddiness; Z68.35 Body mass index [BMI] 35.0-35.9, adult; Z95.0 Presence of cardiac pacemaker; Z87.891 Personal history of nicotine dependence; Z79.82 Long term (current) use of aspirin; Z79.891 Long term (current) use of opiate analgesic; Z79.899 Other long term (current) drug therapy; Z79.84 Long term (current) use of oral hypoglycemic drugs; Z88.4 Allergy status to anesthetic agent; Z88.6 Allergy status to analgesic agent; Z88.8 Allergy status to other drugs, medicaments and biological substances; Z91.018 Allergy to other foods
CPT/HCPCS: 20552; J3301

== ENCOUNTER → 2019-06-06 | Outpatient (CLI) | payer OTHER ==
[~2019-06-06] MED LIST changes: -BUPIVACAINE HCL 0.25% 10 ML VIAL As Ordered ONE; -BUPIVACAINE HCL 0.25% 30 ML VIAL As Ordered ONE; -TRIAMCINOLONE ACETONIDE SUSP 40 MG/ML VIAL (J3301) As Ordered ONE
[2019-06-06 13:49] LABS: BLOOD UREA NITROGEN 22 MG/DL (7-18); CARBON DIOXIDE LEVEL 27 MEQ/L (21-32); CHLORIDE LEVEL 108 MEQ/L (98-107); CHOLESTEROL LEVEL 141 MG/DL (<200); CHOLESTEROL RISK RATIO 2.203 (<5); GLOMERULAR FILTRATION RATE > 60.0 (>49); GLUCOSE, FASTING 96 MG/DL (70-100); HDL CHOLESTEROL 64 MG/DL (>40); LDL CHOLESTEROL 61 MG/DL (<100); MAGNESIUM LEVEL 2.1 MG/DL (1.8-2.4); NON-HDL-C 77 MG/DL; POTASSIUM SERUM 4.6 MEQ/L (3.5-5.1); SODIUM LEVEL 142 MEQ/L (136-145); TRIGLYCERIDES LEVEL 80 MG/DL (<150)
== END ==
LOC: M LAB 12:34
PROVIDERS: ATTEND Physician Assistant
DX: I50.42 Chronic combined systolic (congestive) and diastolic (congestive) heart failure (principal); I25.10 Atherosclerotic heart disease of native coronary artery without angina pectoris; E78.2 Mixed hyperlipidemia

== ENCOUNTER → 2019-06-08 | Outpatient (REF) | payer OTHER ==
[2019-06-08 17:40] LABS: APPEARANCE, URINE CLEAR (CLEAR); BACTERIA, URINE AUTO NEGATIVE (NEGATIVE); BILIRUBIN, URINE AUTO NEGATIVE (NEGATIVE); BLOOD, URINE BLOOD 1+ (NEGATIVE); COLOR, URINE YELLOW (YELLOW); GLUCOSE, URINE (UA) AUTO 3+ mg/dL (NEGATIVE); KETONE, URINE AUTO NEGATIVE (NEGATIVE); LEUKOCYTE ESTERASE, URINE AUTO 2+ (NEGATIVE); NITRITE, URINE AUTO NEGATIVE (NEGATIVE); PROTEIN, URINE AUTO NEGATIVE (NEGATIVE); RBC, URINE AUTO 10 /HPF (0-3); SPECIFIC GRAVITY URINE AUTO 1.029 (1.002-1.035); SQUAMOUS EPITHELIAL CELL UR AU 1 /HPF (0-6); UROBILINOGEN, URINE AUTO 0.2 mg/dL (0.0-2.0); WBC, URINE AUTO 11 /HPF (0-3)
== END ==
LOC: M SMT 16:57
PROVIDERS: ATTEND Nurse Practitioner Family
DX: R30.0 Dysuria (principal)

== ENCOUNTER → 2019-06-11 | Outpatient (CLI) | payer OTHER ==
[~2019-06-11] MED LIST changes: +CHOL50002 PO; +MIRA3350 PO; +OMEP40CA97 PO; +ONDA-83 PO; +OXYB-54 PO; -OXYB5TAB2 PO; +PROT1TAB2 PO; +SUCR1SS PO; +VITA500045 PO; +ZONI50CA11 PO; -ZONI50CA3 PO
--- NOTE | 2019-06-11 14:13 | REP ---
TRIPLE PHASE BONE SCAN KNEES: Following the intravenous administration of 22 millicuries technetium 99m MDP, patient's knees are imaged in the flow phase in the anterior and posterior projections. Imaging is also performed in the immediate and 2-hour delayed imaging phases in multiple projections. There is mild increased blood flow, blood pooling and delayed activity in the region of the distal end of femur adjacent to the femoral prosthesis in the region of the patella and also in the region of the right tibial plateau adjacent to tibial prosthesis. This is nonspecific. This could simply represent postsurgical uptake following placement of the prosthesis 07/04/2018. Some degree of loosening or infection cannot be excluded based on this exam. Clinical correlation is recommended. Electronically Signed by Pillo Aguilar MD 06/11/2019 04:22 P
== END ==
LOC: M RAD 10:41
PROVIDERS: ATTEND Orthopaedic Surgery
DX: M17.11 Unilateral primary osteoarthritis, right knee (principal); M19.011 Primary osteoarthritis, right shoulder; M19.012 Primary osteoarthritis, left shoulder; Z98.1 Arthrodesis status
CPT/HCPCS: 78315; A9503

== ENCOUNTER → 2019-06-18 | Outpatient (CLI) | payer OTHER ==
[~2019-06-18] MED LIST changes: -CHOL50002 PO; -MIRA3350 PO; -OMEP40CA97 PO; -ONDA-83 PO; -OXYB-54 PO; +OXYB5TAB2 PO; -PROT1TAB2 PO; -SUCR1SS PO; -VITA500045 PO; -ZONI50CA11 PO; +ZONI50CA3 PO
[2019-06-18 16:11] LABS: BASO # 0.1 10^3/uL (0.0-0.2); BASO % 0.8 % (0.0-1.0); EOS # 0.2 10^3/uL (0.0-0.5); EOS % 2.1 % (0.0-3.0); HEMATOCRIT 44.4 % (42.0-52.0); HEMOGLOBIN 14.3 g/dl (13.5-17.5); LYMPH # 1.6 10^3/uL (1.5-5.0); LYMPH % 21.2 % (24.0-44.0); MEAN CORPUSCULAR HEMOGLOBIN 30.3 pg (27.0-33.0); MEAN CORPUSCULAR HGB CONC 32.2 g/dl (32.0-36.5); MEAN CORPUSCULAR VOLUME 94.1 fl (80.0-96.0); MONO # 0.8 10^3/uL (0.0-0.8); MONO % 10.7 % (0.0-5.0); NEUTROPHILS # 4.9 10^3/uL (1.5-8.5); NEUTROPHILS % 64.1 % (36.0-66.0); PLATELET COUNT, AUTOMATED 247 10^3/uL (150-450); RED BLOOD COUNT 4.72 10^6/uL (4.30-6.10); WHITE BLOOD COUNT 7.6 10^3/uL (4.0-10.0)
[2019-06-18 17:33] LABS: ERYTHROCYTE SEDIMENTATION RATE 7 mm/hr (0-20)
== END ==
LOC: M LAB 15:30
PROVIDERS: ATTEND Orthopaedic Surgery
DX: Z96.651 Presence of right artificial knee joint (principal)

== ENCOUNTER → 2019-06-25 | Outpatient (CLI) | payer OTHER ==
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
== END ==
LOC: M PAIN 10:30
PROVIDERS: ATTEND Family Medicine
DX: M79.18 Myalgia, other site (principal); J44.9 Chronic obstructive pulmonary disease, unspecified; E78.5 Hyperlipidemia, unspecified; I10 Essential (primary) hypertension; K21.9 Gastro-esophageal reflux disease without esophagitis; E11.9 Type 2 diabetes mellitus without complications; Z86.19 Personal history of other infectious and parasitic diseases; Z95.0 Presence of cardiac pacemaker; Z96.651 Presence of right artificial knee joint; Z87.891 Personal history of nicotine dependence; Z88.6 Allergy status to analgesic agent; Z88.8 Allergy status to other drugs, medicaments and biological substances; Z91.018 Allergy to other foods; Z91.02 Food additives allergy status; Z79.82 Long term (current) use of aspirin; Z79.84 Long term (current) use of oral hypoglycemic drugs; Z79.891 Long term (current) use of opiate analgesic; Z79.899 Other long term (current) drug therapy

== ENCOUNTER 2019-07-02 08:06 | Emergency (ER) | payer OTHER ==
[~2019-07-02] VITALS: Ht 182.9 cm; Wt 120.6 kg
[~2019-07-02 08:06] MED LIST changes: +OMEP40CA97 PO
[2019-07-02] MEDS ORDERED: SUCRALFATE SUSP 1GM/10ML UD PO ONE ×2 (08:45→14:30)
[2019-07-02 09:05] LABS: BASO # 0.1 10^3/uL (0.0-0.2); BASO % 0.7 % (0.0-1.0); EOS # 0.2 10^3/uL (0.0-0.5); EOS % 2.7 % (0.0-3.0); HEMOGLOBIN 14.6 g/dl (13.5-17.5); LYMPH # 1.2 10^3/uL (1.5-5.0); LYMPH % 17.6 % (24.0-44.0); MEAN CORPUSCULAR HEMOGLOBIN 30.5 pg (27.0-33.0); MEAN CORPUSCULAR HGB CONC 33.2 g/dl (32.0-36.5); MEAN CORPUSCULAR VOLUME 92.1 fl (80.0-96.0); MONO # 0.7 10^3/uL (0.0-0.8); MONO % 10.2 % (0.0-5.0); NEUTROPHILS # 4.6 10^3/uL (1.5-8.5); NEUTROPHILS % 67.1 % (36.0-66.0); PLATELET COUNT, AUTOMATED 226 10^3/uL (150-450); RED BLOOD COUNT 4.78 10^6/uL (4.30-6.10); WHITE BLOOD COUNT 6.9 10^3/uL (4.0-10.0)
--- NOTE | 2019-07-02 09:06 | REP ---
Portable chest, 08:25 a.m., single AP view with the patient upright: Comparison is 02/25/2019. The lung morris are clear. The cardiac size is normal. The ender, mediastinum, and skeletal structures are unremarkable. There is a single lead pacemaker / AICD entering from left, unchanged. Impression: Negative portable chest. Electronically Signed by Pillo Smalls MD 07/02/2019 08:58 A
[2019-07-02 09:27] LABS: ERYTHROCYTE SEDIMENTATION RATE 8 mm/hr (0-20)
[2019-07-02 09:36] LABS: BLOOD UREA NITROGEN 14 MG/DL (7-18); CARBON DIOXIDE LEVEL 22 MEQ/L (21-32); CHLORIDE LEVEL 109 MEQ/L (98-107); CK-MB VALUE MASS < 1.0 NG/ML (<3.6); CPK CREATINE PHOSPHOKINASE 56 U/L (39-308); CREATININE FOR GFR 0.86 MG/DL (0.70-1.30); GLOMERULAR FILTRATION RATE > 60.0 (>49); GLUCOSE, FASTING 103 MG/DL (70-100); MB/CK RELATIVE INDEX 1.79 (< OR =4); POTASSIUM SERUM 4.5 MEQ/L (3.5-5.1); SODIUM LEVEL 139 MEQ/L (136-145); TROPONIN I < 0.02 NG/ML (< 0.10)
[2019-07-02 10:07] LABS: ALBUMIN 3.5 GM/DL (3.2-5.2); ALT/SGPT 113 U/L (12-78); BILIRUBIN,DIRECT 0.1 MG/DL (0.0-0.2); BILIRUBIN,TOTAL 0.3 MG/DL (0.2-1.0); LIPASE 75 U/L (73-393); NT-PRO BNP 153 PG/ML (<125); TOTAL PROTEIN 6.4 GM/DL (6.4-8.2)
[2019-07-02] MEDS ORDERED: PERCOCET 5MG/325MG TAB PO ONE (10:45)
[2019-07-02] MEDS ORDERED: PANTOPRAZOLE 40MG TAB (PROTONIX) PO ONE (14:30)
[2019-07-02 14:54] LABS: CK-MB VALUE MASS < 1.0 NG/ML (<3.6); CPK CREATINE PHOSPHOKINASE 55 U/L (39-308); MB/CK RELATIVE INDEX 1.82 (< OR =4); TROPONIN I < 0.02 NG/ML (< 0.10)
[2019-07-02] MEDS ORDERED: SUCR1SS PO (15:28)
[2019-07-02] MEDS ORDERED: PROT1TAB2 PO (15:28)
[2019-07-02 15:45] VITALS: BP 165/75
--- NOTE | 2019-07-03 00:37 | ECGEPIP ---
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
--- NOTE | 2019-07-03 00:47 | ECGEPIP ---
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
== END 2019-07-02 15:55 | disposition home or self-care (01) ==
LOC: M ED 08:06
DX: R07.9 Chest pain, unspecified (principal); R00.1 Bradycardia, unspecified; I44.0 Atrioventricular block, first degree; I45.89 Other specified conduction disorders; I50.9 Heart failure, unspecified; I10 Essential (primary) hypertension; G89.29 Other chronic pain; E11.9 Type 2 diabetes mellitus without complications; M54.9 Dorsalgia, unspecified; N40.0 Benign prostatic hyperplasia without lower urinary tract symptoms; Z87.891 Personal history of nicotine dependence; Z79.82 Long term (current) use of aspirin; Z79.84 Long term (current) use of oral hypoglycemic drugs; Z79.899 Other long term (current) drug therapy; Z88.6 Allergy status to analgesic agent; Z88.8 Allergy status to other drugs, medicaments and biological substances; Z91.018 Allergy to other foods

== ENCOUNTER → 2019-07-06 | Outpatient (CLI) | payer OTHER ==
[~2019-07-06] MED LIST changes: -OMEP40CA97 PO; +PROT1TAB2 PO; +SUCR1SS PO
== END ==
LOC: M PAIN 13:45
PROVIDERS: ATTEND Family Medicine
DX: M47.815 Spondylosis without myelopathy or radiculopathy, thoracolumbar region (principal); M79.18 Myalgia, other site; J44.9 Chronic obstructive pulmonary disease, unspecified; E78.5 Hyperlipidemia, unspecified; I10 Essential (primary) hypertension; E11.9 Type 2 diabetes mellitus without complications; K21.9 Gastro-esophageal reflux disease without esophagitis; Z86.19 Personal history of other infectious and parasitic diseases; Z95.0 Presence of cardiac pacemaker; Z96.651 Presence of right artificial knee joint; Z87.891 Personal history of nicotine dependence; Z88.5 Allergy status to narcotic agent; Z88.6 Allergy status to analgesic agent; Z88.8 Allergy status to other drugs, medicaments and biological substances; Z91.018 Allergy to other foods; Z91.02 Food additives allergy status; Z79.82 Long term (current) use of aspirin; Z79.84 Long term (current) use of oral hypoglycemic drugs; Z79.891 Long term (current) use of opiate analgesic; Z79.899 Other long term (current) drug therapy

== ENCOUNTER 2019-07-23 16:26 | Emergency (ER) | payer OTHER ==
[~2019-07-23] VITALS: Ht 182.9 cm; Wt 118.6 kg
[~2019-07-23 16:26] MED LIST changes: +OMEP40CA97 PO
[2019-07-23 17:53] LABS: BASO # 0.1 10^3/uL (0.0-0.2); BASO % 0.5 % (0.0-1.0); EOS # 0.2 10^3/uL (0.0-0.5); EOS % 1.7 % (0.0-3.0); HEMOGLOBIN 14.1 g/dl (13.5-17.5); LYMPH # 1.2 10^3/uL (1.5-5.0); LYMPH % 11.5 % (24.0-44.0); MEAN CORPUSCULAR HEMOGLOBIN 30.3 pg (27.0-33.0); MEAN CORPUSCULAR HGB CONC 32.8 g/dl (32.0-36.5); MEAN CORPUSCULAR VOLUME 92.3 fl (80.0-96.0); MONO # 0.8 10^3/uL (0.0-0.8); NEUTROPHILS # 7.9 10^3/uL (1.5-8.5); NEUTROPHILS % 77.9 % (36.0-66.0); PLATELET COUNT, AUTOMATED 218 10^3/uL (150-450); RED BLOOD COUNT 4.66 10^6/uL (4.30-6.10); WHITE BLOOD COUNT 10.1 10^3/uL (4.0-10.0)
[2019-07-23 18:11] LABS: BLOOD UREA NITROGEN 16 MG/DL (7-18); CARBON DIOXIDE LEVEL 26 MEQ/L (21-32); CHLORIDE LEVEL 111 MEQ/L (98-107); CREATININE FOR GFR 0.95 MG/DL (0.70-1.30); GLOMERULAR FILTRATION RATE > 60.0 (>49); GLUCOSE, FASTING 90 MG/DL (70-100); POTASSIUM SERUM 4.1 MEQ/L (3.5-5.1); SODIUM LEVEL 142 MEQ/L (136-145)
--- NOTE | 2019-07-23 18:42 | REP ---
Clinical: Dyspnea. Technique: PA and lateral. Comparison: 07/02/2019. Findings: Examination is limited by technique and underpenetration which accentuate the pulmonary vasculature. Mild pulmonary vascular congestion and interstitial edema cannot be excluded. Stable cardiomegaly with pacemaker again noted. No focal consolidation. No obvious effusion. No pneumothorax. Skeletal structures intact. Impression: Chronic changes. Cannot exclude mild pulmonary vascular congestion/interstitial edema. Electronically Signed by Chadd Rivas MD 07/23/2019 06:34 P
[2019-07-23] MEDS ORDERED: CHOL50002 PO (18:43)
[2019-07-23] MEDS ORDERED: MIRA3350 PO (18:49)
[2019-07-23] MEDS ORDERED: IPRATROPIUM 0.5MG/ALBUTEROL 2.5MG INH SOL UD 3ML (DUONEB)(J7620) NEB ONE (19:45)
[2019-07-23 19:51] LABS: CK-MB VALUE MASS < 1.0 NG/ML (<3.6); CPK CREATINE PHOSPHOKINASE 62 U/L (39-308); MB/CK RELATIVE INDEX 1.61 (< OR =4); NT-PRO BNP 391 PG/ML (<125); TROPONIN I < 0.02 NG/ML (< 0.10)
--- NOTE | 2019-07-23 20:47 | ECGEPIP ---
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 Order Number: [id number] Reading MD: Raven Dominguez Measurements Intervals [place] Rate: 64 P: 88 IN: 203 QRS: 48 QRSD: 101 T: 53 QT: 456 QTc: 472 Interpretive Statements SINUS RHYTHM PROLONGED QT INTERVAL NONSPECIFIC ST T WAVE CHANGES DELAYED R WAVE PROGRESSION CW 07/02/[address] T WAVE CHANGES Electronically Signed on 07-23-2019 20:46:32 EDT by Raven Dominguez
[2019-07-23] MEDS ORDERED: FUROSEMIDE 40 MG TAB PO ONE (21:30)
[2019-07-23 21:38] VITALS: BP 125/60
== END 2019-07-23 21:40 | disposition home or self-care (01) ==
LOC: M ED 16:26
DX: I50.9 Heart failure, unspecified (principal); R94.31 Abnormal electrocardiogram [ECG] [EKG]; J44.9 Chronic obstructive pulmonary disease, unspecified; Z79.899 Other long term (current) drug therapy; Z79.84 Long term (current) use of oral hypoglycemic drugs; Z87.891 Personal history of nicotine dependence; Z88.8 Allergy status to other drugs, medicaments and biological substances; Z91.018 Allergy to other foods

== ENCOUNTER → 2019-07-30 | Outpatient (CLI) | payer OTHER ==
[~2019-07-30] MED LIST changes: +BUPIVACAINE HCL 0.25% 10 ML VIAL As Ordered ONE; +BUPIVACAINE HCL 0.25% 30 ML VIAL As Ordered ONE; +CHOL50002 PO; +MIRA3350 PO; +ONDA4TAB5 PO; +TRIAMCINOLONE ACETONIDE SUSP 40 MG/ML VIAL (J3301) As Ordered ONE; +VITA500045 PO
--- NOTE | 2019-08-14 04:21 | ECWPNPC ---
PATIENT NAME: CAMILO ARMSTRONG : 1960 GENDER: MALE VISIT DATE: 07/30/2019 DISCHARGE DATE: 07/30/19 1511 VISIT LOCKED DATE TIME: PHYSICIAN: THELMA BHARDWAJ MD RESOURCE: THELMA BHARDWAJ MD REASON FOR APPOINTMENT 1. EULA SUSANI, ANNE-MARIE CLAIM HISTORY OF PRESENT ILLNESS HISTORY OF PRESENT ILLNESS: PAIN THE PATIENT DESCRIBES THE PAIN... FALL RISK SCREENING: SCREENING :NO FALLS REPORTED IN THE LAST YEAR CURRENT MEDICATIONS TAKING LISINOPRIL 2.5MG TABLET 1 TAB ORALLY AT BEDTIME TAKING ASPIRIN 81 MG TABLET DELAYED RELEASE 1 TAB ORALLY DAILY TAKING NASACORT AQ 55 MCG/ACT AEROSOL 1 SPRAY IN EACH NOSTRIL NASALLY ONCE A DAY, NOTES: WOULD LIKE MERLY TAKING ADVAIR DISKUS 250-50 MCG/DOSE MISCELLANEOUS 1 INHALATION. ALWAYS RINSE YOUR MOUTH OUT AFTER USE ONCE A DAY TAKING VENTOLIN HFA 108 (90 BASE) MCG/ACT AEROSOL SOLUTION 2 PUFFS INHALATION EVERY 4-6 HOURS NEEDED, NOTES: 07/30/19 TAKING NITROSTAT 0.4 MG TABLET SUBLINGUAL 1 TAB SUBLINGUAL TAB1 TAB FOR CHEST PAIN IF NO RELIEF IN 5 MINUTES TAKE 2ND NITRO IF NO RELIEF AFTER 5 MINUTES TAKE 3RD NITRO ER, NOTES: 05/2018 TAKING MIRALAX 17 GM POWDER 17GM ORALLY DAILY NEEDED TAKING MAGNESIUM 64 MG CAPSULE 1 TAB ORALLY BID TAKING MULTIVITAMINS 1 TABLET DIRECTED ORALLY DAILY TAKING ZONISAMIDE 50 MG CAPSULE 1 CAP ORALLY ONCE DAILY TAKING ALDACTONE 25 MG TABLET 1/2 TAB ORALLY DAILY TAKING LASIX 40 MG TABLET 1 TAB ORALLY BID NEEDED TAKING ATENOLOL 50 MG TABLET 1 TABLET ORALLY BID TAKING AMIODARONE HCL 200 MG TABLET 1 TABLET ORALLY BID TAKING POTASSIUM CHLORIDE ER 20 MEQ TABLET EXTENDED RELEASE 1 TABLET WITH FOOD ORALLY BID TAKING AVODART 0.5 MG CAPSULE 1 CAPSULE ORALLY ONCE A DAY TAKING LEVOTHYROXINE SODIUM 25 MCG TABLET TAKE ONE TABLET BY MOUTH EVERY MORNING ON AN EMPTY STOMACH ORALLY ONCE A DAY TAKING OXYBUTYNIN CHLORIDE ER 5 MG TABLET EXTENDED RELEASE 24 HOUR 1 TABLET ORALLY ONCE A DAY TAKING ZYRTEC 10 MG TABLET 1 TABLET ORALLY ONCE A DAY TAKING COLACE 100 MG CAPSULE 1 CAPSULE ORALLY TWICE DAILY TAKING METFORMIN HCL 500 MG TABLET TAKE ONE TABLET BY MOUTH EVERY MORNING AND 2 EVERY EVENING WITH DINNER , NOTES: 07/29/191999 TAKING GABAPENTIN 400 MG CAPSULE 1 CAPSULE ORALLY FOUR TIMES DAILY MDD4, NOTES: 07/30/19 1100 TAKING LIPITOR 80 MG TABLET 1 TABLET ORALLY ONCE A DAY AT BEDTIME TAKING NYSTATIN [id number] UNIT/GM CREAM 1 APPLICATION TO AFFECTED AREA EXTERNALLY TWICE A DAY TAKING DETROL 2 MG TABLET 1 TABLET ORALLY TWICE A DAY TAKING TRAMADOL HCL ER 100 MG TABLET EXTENDED RELEASE 24 HOUR 1 TABLET ORALLY ONCE A DAY MDD=1, NOTES: 07/30/19 0800 TAKING PERCOCET 5-325 MG TABLET 1 TABLET ORALLY Q 4 HRS PRN PAIN MDD=5, NOTES: 07/30/19 1100 TAKING PANTOPRAZOLE SODIUM 40 MG TABLET DELAYED RELEASE 1 TABLET ORALLY TWICE A DAY TAKING DRISDOL 08163 UNIT CAPSULE 1 CAPSULE ORALLY EVERY OTHER WEEK TAKING SUCRALFATE 1 GM TABLET 1 TABLET, CRUSH IT AND MIX IT WITH 10ML OF WATER ORALLY QID, NOTES: HIS INSURANCE WON'T ALLOW THE SUSPENSION UNTIL WE HAVE TRIED THIS. IF YOU CAN MAKE A 1GM/10ML SOLUTION THAT WOULD BE GREAT. THE SOLUTION IS PREFERRED BECAUSE OF HIS HIATAL HERNIA. TAKING MECLIZINE HCL 25 MG TABLET 1 TABLET ORALLY 1-2 TIMES DAILY NEEDED TAKING ADVAIR DISKUS 250-50 MCG/DOSE AEROSOL POWDER BREATH ACTIVATED INHALE ONE PUFF BY MOUTH EVERY DAY RISNE MOUTH AFTER USE TAKING TIZANIDINE HCL 2 MG TABLET 1 TABLET NEEDED ORALLY FOR SPASMS AND PAIN EVERY 6 HOURS NEEDED MDD3, NOTES: 07/30/19 0700 TAKING VITAMIN D-3 5000 UNIT TABLET 1 TABLET ORALLY ONCE A DAY NOT-TAKING TAMSULOSIN HCL 0.4 MG CAPSULE 1 CAPSULE ORALLY EVERY OTHER DAY NOT-TAKING STEGLATRO 5 MG TABLET 1 TABLET ORALLY ONCE A DAY NOT-TAKING SKELAXIN 400 MG TABLET 2 TABLETS ORALLY THREE TIMES A DAY NOT-TAKING BETAMETHASONE DIPROPIONATE AUG 0.05 % CREAM 1 APPLICATION TO AFFECTED AREA EXTERNALLY BID DISCONTINUED SUCRALFATE 1 GM/10ML SUSPENSION 10 ML ON AN EMPTY STOMACH ORALLY FOUR TIMES DAILY MEDICATION LIST REVIEWED AND RECONCILED WITH THE PATIENT PAST MEDICAL HISTORY COPD- SPIROMETRY- 02/05/14- DECLINES AT THIS TIME CHF (SYSTOLIC AND DIASTOLIC)- CANNY HYPERLIPIDEMIA HYPERTENSION GERD CHRONIC LOW BACK PAIN- W COMP- DR BOJORQUEZ- CHRONIC PAIN MEDS PER [facility]. CHRONIC RT KNEE PAIN VERTIGO (SINCE 1990) OBESITY H/O HEAVY ALCOHOL USE (IN REMISSION) ASCVD 10-YEAR RISK IS 3.6% IN HTE COLONOSCOPY 2009 BILATERAL HYDROCELE EPIDIDYMITIS CYST RIGHT HEPATITIS B (FROM BLOOD TRANSFUSION) PACEMAKER 04/2018 HEART MONITOR -WEARING FOR 1 MONTH - V-TACH V-TAC HOSP 06/21/2018 DENSE LIPOMA DEFIBRILLATOR ALLERGIES RED DYE: RASH - ALLERGY TOMATO: NAUSEA/VOMITING - ALLERGY FINASTERIDE: FLARED CHF - CONTRAINDICATION NSAIDS: CONGESTIVE FAILURE - CONTRAINDICATION VOLTAREN: GEL/ SPASMS/PAIN - ALLERGY LYRICA: CHF - CONTRAINDICATION SURGICAL HISTORY NO PERSONAL OR FHX SEVERE REACTION TO ANESTHESIA R HUMERUS FIXATION 1972 R MEDIAL MENISCECTOMY 1981 DRAINAGE OF R NECK ? PERITONSILAR ABSCESS 1996 S/P AICD PLACMENT 2007 L4-S1 SPINAL DECOMPRESSION WITH INSTRUMENTED POSTERIOR AND INTERBODY FUSION. DUROTOMY REPAIR. (TIMOTHY @ [facility]) 03/2011 EGD-REINDL NML 03/13/10 COLONOSCOPY- REINDL. DIVERTICULOSIS- REPEAT 5-10 YEARS 03/13/10 RIGHT KNEE SURGERY BY ORTHO 02/05 NEW ICD 12/29/16 MASS [id number] AGAIN 02/2018 REMOVAL TUMOR LEFT THORACIC 02/27/18 RIGHT KNEE REPLACEMENT 06/2018 REMOVAL OF TUMOR RIGHT BACK- DR. KAUFMAN 11/24/18 CYSTO 04/30/2019 FAMILY HISTORY FATHER: ALIVE, BYPASS. KIDNEY CANCER HAD KIDNEY REMOVED. METASTATIC CANCER TO LUNGS., DIAGNOSED WITH UNSPECIFIED HEART DISEASE, HYPERTENSION, OTHER MALIGNANT NEOPLASM OF UNSPECIFIED SITE MOTHER: ALIVE, DIABETES, HYPERTENSION, UNSPECIFIED HEART DISEASE, OTHER SPECIFIED CONDITIONS INFLUENCING HEALTH STATUS SIBLINGS: 2 BROTHERS HAD BYPASS. SISTER HAS HEART ISSUES SINCE . 1 BROTHER HAD HYDROCELE. 2 BROTHER(S) , 5 SISTER(S) . 1 SON(S) , 1 DAUGHTER(S) - HEALTHY. FATHER-METASTATIC LUNG CA\\\\NMOTHER--HYPOTHYROID\\\\NOLDER BROTHER-STROKE\\\\NSON- ASTHMA. SOCIAL HISTORY GENERAL: TOBACCO USE ARE YOU A:FORMER SMOKER QUIT 2007 SMOKED FOR 33 YRS. 1 PACK PER DAY. EDUCATION LEVEL OF EDUCATION:COLLEGE LANGUAGE LANGUAGES SPOKEN:EGYPTIAN DOMESTIC VIOLENCE DO YOU FEEL SAFE IN YOUR ENVIRONMENT?YES RECREATIONAL DRUG USE DRUG USE?NO EXERCISE: WALKS. LEARNING BARRIERS / SPECIAL NEEDS CHANGE FROM LAST VISIT?NO BARRIERS TO LEARNING?NO HEARING IMPAIRED?YES BILATERAL [place] WORSE ON LEFT VISION IMPAIRED?YES COGNITIVELY IMPAIRED?NO :CORRECTIVE LENSES READINESS TO LEARN?YES LEARNING PREFERENCES?NO LEARNING CAPABILITIES PRESENT?YES EMOTIONAL BARRIERS?NO SPECIAL DEVICES?NO YOUTH COORDINATOR NEEDED?NO PAIN CLINIC PFS, CLERGY, PUBLIC HEALTH REFERRALS PFS REFERRAL NEEDED?NO CLERGY REFERRAL NEEDED?NO PUBLIC HEALTH REFERRAL NEEDED?NO WAS THE PROVIDER NOTIFIED OF ANY PERTINENT INFO? N/A HAS THE PATIENT BEEN EDUCATED REGARDING HIS/HER PLAN OF CARE?YES HAS THE PATIENT BEEN EDUCATED REGARDING PAIN, THE RISK FOR PAIN, THE IMPORTANCE OF EFFECTIVE PAIN MANAGEMENT, AND THE PAIN ASSESSMENT PROCESS?YES LATEX QUESTIONNAIRE LATEX ALLERGY : HAVE YOU EVER DEVELOPED ANY TYPE OF REACTION AFTER HANDLING LATEX PRODUCTS SUCH RUBBER GLOVES, CONDOMS, DIAPHRAGMS, BALLOONS, SOCKS, OR UNDERWEAR?NO LATEX ALLERGY : HAVE YOU EVER DEVELOPED ANY TYPE OF REACTION DURING OR AFTER DENTAL APPOINTMENT, VAGINAL/RECTAL EXAMINATION, SURGICAL PROCEDURE, OR ANY OTHER EXPOSURE?NO DATE ASKED : 07/24/2019 LATEX RISK : HAVE YOU EVER HAD ANY DIFFICULTY BREATHING OR HIVES AFTER EATING OR HANDLING ANY FRUITS, OR VEGETABLES; SUCH KIWI, BANANAS, STONE FRUITS, OR CHESTNUTSNO LATEX RISK : DO YOU HAVE A PREVIOUS PERSONAL HISTORY OF MORE THAN NINE SURGERIES, SPINA BIFIDA, OR REPEATED CATHERIZATIONS? NO CAFFEINE CAFFEINE USE?NO ADVANCE DIRECTIVE ADVANCE DIRECTIVE DISCUSSED WITH PATIENT:YES PT. HAS HCP CHILDREN 1. MARQUITA ARMSTRONG 2. [place] COPY ON FILE WITH [facility] [id number] VOODOO MARITAL STATUS: .. ALCOHOL SCREENING DID YOU HAVE A DRINK CONTAINING ALCOHOL IN THE PAST YEAR?NO POINTS0 INTERPRETATIONNEGATIVE SEXUAL HX HAD SEX IN THE LAST 12 MONTHS (VAGINAL, ORAL, OR ANAL)?NO HAVE YOU EVER HAD AN STD?NO 05/09/18 REVIEWED WITH PT. 05/23/18 REVIEWED WITH PT LASREVIEWED WITH PATIENT 07/11/18 1346 JSREVIEWED WITH PATIENT 07/27/18 1108 JSREVIEWED WITH PATIENT 08/22/18 0911 JSREVIEWED WITH PATIENT 07/30/19 LASREVIEWED WITH PATIENT 04/17/19 1409 JSREVIEWED WITH PT 03/26/2019 0945 LASREVIEWED WITH PATIENT 10/03/18 1335 BVREVIEWED WITH PATIENT 11/23/18 1215 LASREVIEWED WITH PATIENT 07/06/19 1410 NLJ. HOSPITALIZATION/MAJOR DIAGNOSTIC PROCEDURE CHF 2008 DOG BITE 01/2015 RELATED TO SURGERIES [facility] 06/21/18 SURGERY RELATED 06/2018 REVIEW OF SYSTEMS REVIEWED BY: PROVIDER: . CONSTITUTIONAL: ANY CHANGE IN YOUR MEDICAL CONDITION? YES PT REPORTS HE WENT TO THE ED WITH HIGH BLOOD PRESSURE, DIAGNOSED WITH A HIATAL HERNIA, TREATED WITH CARAFATE, PROTONIX . CHILLS NO . FEVER NO . INFECTION: DO YOU HAVE NEW INFECTIONS? NO . DO YOU HAVE HISTORY OF MRSA? NO . MUSCULOSKELETAL: ANY NEW PATTERNS OF PAIN OR NUMBNESS? NO . GASTROENTEROLOGY: ANY NEW CHANGE IN BOWEL CONTROL? NO . GENITOURINARY: ANY NEW CHANGE IN BLADDER CONTROL? NO . IS THERE A CHANCE YOU COULD BE ? NO . HEMATOLOGY/LYMPH: DO YOU TAKE ANY BLOOD THINNERS? (FOR EXAMPLE- COUMADIN, PLAVIX, AGGRENOX, PLATEL, PRADAXA, OR XARELTO) NO . WHEN WAS YOUR LAST DOSE? DATE: TIME: . NEUROLOGY: HAVE YOU FALLEN IN THE PAST 12 MONTHS? NO . ANY NEW EXTREMITY NUMBNESS OR WEAKNESS? NO . CARDIOLOGY: DO YOU HAVE A PACEMAKER OR DEFIBRILLATOR? YES AICD PACEMAKER . RESPIRATORY: HAVE YOU BEEN SICK IN THE PAST WEEK? YES PT REPORTS SOME CHEST CONGESTION OVER THE PAST COUPLE OF WEEKS, FEELS IT HAS PRETTY MUCH RESOLVED. LUNGS WITH SCATTERED CRACKLES, NO WHEEZES HEARD. . FEVER NO . FLU LIKE SYMPTOMS? NO . COUGH NO . INTEGUMENTARY: DO YOU HAVE ANY RASHES OR OPEN SORES? NO . ALLERGIC/IMMUNO: ARE YOU ALLERGIC TO IV DYE? NO . ANY NEW ALLERGIES? NO . PSYCHIATRIC: DO YOU HAVE THOUGHTS OF HURTING YOURSELF OR SOMEONE ELSE? NO . ARE YOU ABUSED, NEGLECTED, OR IN AN UNSAFE ENVIRONMENT? NO . ENDOCRINOLOGY: ARE YOU DIABETIC? NO . OTHER: DO YOU NEED ANY PRESCRIPTIONS? NO . IF YES, PLEASE LIST: ____ . ANY NEW PROBLEMS WITH YOUR MEDICATIONS? NO . WHEN DID YOU LAST EAT? ____ . WHEN DID YOU LAST DRINK? ____ . WHAT DID YOU LAST DRINK? ____ . NAME OF PERSON DRIVING YOU HOME? ____ . DO YOU HAVE ANY OTHER QUESTIONS OR CONCERNS NO . VITAL SIGNS WT 264.4 LBS, HT 72 IN, BMI 35.86 INDEX, BP 142/68 MM HG, HR 61 /MIN, RR 18 /MIN, TEMP 97.6 F, OXYGEN SAT % 93%, SAFE IN ENV? (Y/N) YES, NA INITIALS VT 13:38, REVIEWED BY: ASSESSMENTS MYALGIA, OTHER SITE - M79.18 (PRIMARY) PROCEDURES PN WORKMANS' COMP OPINION IN YOUR OPINION, WAS THE INCIDENT THAT THE PATIENT DESCRIBED THE COMPETENT MEDICAL CAUSE OF THIS INJURY/ILLNESS? YES ARE THE PATIENT'S COMPLAINTS CONSISTENT WITH HIS/HER HISTORY OF THE INJURY/ILLNESS? YES IS THE PATIENT'S HISTORY OF THE INJURY/ILLNESS CONSISTENT WITH YOUR OBJECTIVE FINDING? YES WHAT IS THE PERCENTAGE OF TEMPORARY IMPAIRMENT? MODERATE TO MARKED = 66.7% IS THE PATIENT WORKING? NO DOCTOR ON SITE: THELMA NUNEZ MD PN TRIGGER POINT INJECTION WITH STEROIDS PRE PROCEDURE DIAGNOSIS 1. MYALGIA 2. PAIN AT BILATERAL THORACIC AREA. POST PROCEDURE DIAGNOSIS 1. MYALGIA 2. PAIN AT BILATERAL THORACIC AREA. PROCEDURE TRIGGER POINT INJECTION AT RIGHT AND LEFT THORACIC AREA. SURGEON DR. THELMA BHARDWAJ OIL REFINERY OPERATOR NONE ANESTHESIA LOCAL PRE PROCEDURE NOTE THE PATIENT HAS A HISTORY OF CHRONIC PAIN AT THE RIGHT AND LEFT THORACIC AREA. I EVALUATED THE PATIENT AND REVIEWED THE CHART. THERE IS EVIDENCE OF BANDS OF TISSUE WITH RESTRICTION OF MOVEMENT AND PRESENCE OF TRIGGER POINT AT THE AFFECTED AREA. I WENT OVER THE RISKS, ALTERNATIVES, AND BENEFITS ASSOCIATED WITH THIS PROCEDURE. THE PATIENT WOULD LIKE TO PROCEED AND GIVES CONSENT TO PERFORM THE PROCEDURE. THE PATIENT DENIES UNEXPLAINABLE WEIGHT LOSS, FEVER, CHILLS, OR NEW CHANGES IN URINARY OR BOWEL CONTROL DESCRIPTION OF PROCEDURE THE PATIENT WAS BROUGHT TO THE PROCEDURE ROOM AND PLACED IN THE SITTING POSITION. THE AREA WAS CLEANED WITH ALCOHOL. THE PROCEDURE WAS DONE USING ASEPTIC STERILE TECHNIQUE. I CHECKED LATERALITY AND THE LEVEL WHERE THE PROCEDURE WAS GOING TO BE PERFORMED WITH THE PATIENT AND THE SUPPORTING STAFF AT THE MOMENT OF THE TIME OUT IN THE PROCEDURE ROOM. USING A 25-GAUGE NEEDLE, TRIGGER POINTS WERE INJECTED AT THE RIGHT AND LEFT THORACIC AREA WITH A TOTAL OF 40 ML OF BUPIVACAINE 0.25% AND KENALOG 40 MG. THERE WAS NO EVIDENCE OF BLOOD, PARESTHESIA OR CEREBROSPINAL FLUID DURING THE PROCEDURE. THE PATIENT WAS SENT TO THE RECOVERY ROOM. THE PATIENT WAS MOVING THE EXTREMITIES AND DOING WELL. THERE WAS NO COMPLICATION DURING THE PROCEDURE POST PROCEDURE NOTE THE PATIENT WILL BE SEEN IN A FOLLOW UP IN THE NEXT FEW WEEKS. INSTRUCTIONS WERE GIVEN, QUESTIONS WERE ANSWERED, AND THE PATIENT EXPRESSED UNDERSTANDING AND AGREES WITH THE PLAN. I, MARCY TRAVIS, DOCUMENTED THE ABOVE INFORMATION ACTING A SCRIBE FOR DR. BHARDWAJ. I HAVE REVIEWED THE ABOVE DOCUMENT, WRITTEN BY MARCY DEE AND I VERIFY THAT IT IS ACCURATE. PROCEDURE CODES 23853 INJ TRIGGER POINT / [facility] DISPOSITION & COMMUNICATION FOLLOW UP 3 WEEKS ELECTRONICALLY SIGNED BY THELMA BHARDWAJ MD, MD ON 08/13/2019 AT 05:32 PM EST DISCLAIMER : THIS IS A VISIT SUMMARY EXTRACTED FROM THE [employer] CHART. IT IS NOT A COPY OF THE [employer] PROGRESS NOTE. JULIETA
== END ==
LOC: M PAIN 13:30
PROVIDERS: ATTEND Anesthesiology
DX: M79.18 Myalgia, other site (principal); J44.9 Chronic obstructive pulmonary disease, unspecified; E78.5 Hyperlipidemia, unspecified; I10 Essential (primary) hypertension; K21.9 Gastro-esophageal reflux disease without esophagitis; Z95.0 Presence of cardiac pacemaker; Z96.651 Presence of right artificial knee joint; Z87.891 Personal history of nicotine dependence; Z88.6 Allergy status to analgesic agent; Z88.8 Allergy status to other drugs, medicaments and biological substances; Z91.018 Allergy to other foods; Z91.02 Food additives allergy status; Z79.82 Long term (current) use of aspirin; Z79.84 Long term (current) use of oral hypoglycemic drugs; Z79.891 Long term (current) use of opiate analgesic; Z79.899 Other long term (current) drug therapy
CPT/HCPCS: 20552; J3301

== ENCOUNTER 2019-08-07 15:00 | Emergency (ER) | payer OTHER ==
[~2019-08-07] VITALS: Ht 182.9 cm; Wt 116.4 kg
[~2019-08-07 15:00] MED LIST changes: -BUPIVACAINE HCL 0.25% 10 ML VIAL As Ordered ONE; -BUPIVACAINE HCL 0.25% 30 ML VIAL As Ordered ONE; -ONDA4TAB5 PO; -TRIAMCINOLONE ACETONIDE SUSP 40 MG/ML VIAL (J3301) As Ordered ONE; -VITA500045 PO
[2019-08-07] MEDS ORDERED: VITA500045 PO (15:39)
[2019-08-07] MEDS ORDERED: ONDA4TAB5 PO (15:40)
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
[2019-08-07 17:26] VITALS: BP 150/70
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
== END 2019-08-07 17:28 | disposition home or self-care (01) ==
LOC: M ED 15:00
DX: M54.2 Cervicalgia (principal); M16.11 Unilateral primary osteoarthritis, right hip; M16.12 Unilateral primary osteoarthritis, left hip; M19.012 Primary osteoarthritis, left shoulder; R51 Headache; R07.9 Chest pain, unspecified; I50.9 Heart failure, unspecified; Z95.0 Presence of cardiac pacemaker; E78.00 Pure hypercholesterolemia, unspecified; I10 Essential (primary) hypertension; J45.909 Unspecified asthma, uncomplicated; J44.9 Chronic obstructive pulmonary disease, unspecified; Z87.01 Personal history of pneumonia (recurrent); G47.30 Sleep apnea, unspecified; H93.19 Tinnitus, unspecified ear; K21.9 Gastro-esophageal reflux disease without esophagitis; K57.32 Diverticulitis of large intestine without perforation or abscess without bleeding; K44.9 Diaphragmatic hernia without obstruction or gangrene; N40.0 Benign prostatic hyperplasia without lower urinary tract symptoms; E11.9 Type 2 diabetes mellitus without complications; E03.9 Hypothyroidism, unspecified; M79.7 Fibromyalgia; M54.9 Dorsalgia, unspecified; M25.722 Osteophyte, left elbow; Z79.82 Long term (current) use of aspirin; Z79.84 Long term (current) use of oral hypoglycemic drugs; Z79.899 Other long term (current) drug therapy; Z88.6 Allergy status to analgesic agent; Z88.8 Allergy status to other drugs, medicaments and biological substances; Z91.018 Allergy to other foods

== ENCOUNTER 2019-08-21 14:33 | Outpatient (RCR) | payer OTHER ==
[~2019-08-21 14:33] MED LIST changes: +ONDA4TAB5 PO; +VITA500045 PO
== END 2019-08-25 ==
LOC: M PT 14:33
PROVIDERS: ATTEND Physician Assistant
DX: M54.2 Cervicalgia (principal); M70.62 Trochanteric bursitis, left hip

== ENCOUNTER → 2019-09-12 | Outpatient (CLI) | payer OTHER ==
[~2019-09-12] MED LIST changes: -OXYB5TAB2 PO; +OXYB5TAB3 PO
--- NOTE | 2019-09-12 14:26 | REP ---
Bilateral lower extremity arterial Doppler ultrasound: History: Atherosclerosis of the [place] arteries. Intermittent claudication bilateral legs. Findings: The ankle brachial indices were measured at 1.2 and 1.1 on the right and left respectively although vascular calcification is present which may falsely elevate these. Significant plaquing is noted in the right common femoral and mid and distal superficial femoral artery but no significant stenosis is seen. Reversal of flow is seen in the distal anterior tibial artery on the right. We were not able to image the exact occlusion level. A slow forward flow was observed in the mid and distal anterior tibial artery on the right. No significant stenosis seen on the left. Relatively normal waveforms are noted in the arterial Doppler tracings bilaterally. Right lower extremity arterial Doppler velocity chart: Right CF A 127 cm/S Profunda 137 Proximal SFA 187 Mid SFA 137 Distal SFA 75 Popliteal 77 Proximal AT 86 Tibioperoneal trunk 61 Proximal ENERGY EFFICIENCY FINANCE MANAGER 77 Distal ENERGY EFFICIENCY FINANCE MANAGER 103 Distal AT A seven reversal Left lower extremity arterial Doppler velocity chart: Left CF A 84 cm/S Profunda 74 Proximal SFA 100 Mid SFA 107 Distal SFA 75 Popliteal 85 Proximal AT A 56 Tibioperoneal trunk 51 Proximal ENERGY EFFICIENCY FINANCE MANAGER 37 Distal ENERGY EFFICIENCY FINANCE MANAGER 102 Distal AT A 70 to Electronically Signed by Lele Mcrae MD 09/12/2019 02:18 P
== END ==
LOC: M RAD 12:06
PROVIDERS: ATTEND Physician Assistant
DX: I70.213 Atherosclerosis of native arteries of extremities with intermittent claudication, bilateral legs (principal)

== ENCOUNTER → 2019-09-13 | Outpatient (CLI) | payer OTHER ==
[~2019-09-13] MED LIST changes: +BUPIVACAINE HCL 0.25% 30 ML VIAL As Ordered ONE; +ISOVUE-M 300 61% 15ML VIAL (Q9967) As Ordered ONE; +LIDOCAINE 1% SDV INJ 30 ML VIAL As Ordered ONE; +TRIAMCINOLONE ACETONIDE SUSP 40 MG/ML VIAL (J3301) As Ordered ONE
--- NOTE | 2019-09-13 10:22 | REP ---
Two fluoroscopic images: 09/13/2019. Indication: Operative/procedural guidance. Findings: Two spot fluoroscopic images of the postoperative lumbar spine were provided for operative/procedural guidance. The surgical hardware appears intact. Please see operative/procedure report for details. Impression: Imaging provided for operative/procedural guidance. Electronically Signed by Dane Sousa DO 09/13/2019 10:14 A
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
== END ==
LOC: M PAIN 08:45
PROVIDERS: ATTEND Anesthesiology
DX: M47.816 Spondylosis without myelopathy or radiculopathy, lumbar region (principal); M47.817 Spondylosis without myelopathy or radiculopathy, lumbosacral region
CPT/HCPCS: 64493; 64494; J3301; Q9967

== ENCOUNTER → 2019-09-25 | Outpatient (RCR) | payer OTHER ==
[~2019-09-25] MED LIST changes: -BUPIVACAINE HCL 0.25% 30 ML VIAL As Ordered ONE; -ISOVUE-M 300 61% 15ML VIAL (Q9967) As Ordered ONE; -LIDOCAINE 1% SDV INJ 30 ML VIAL As Ordered ONE; -TRIAMCINOLONE ACETONIDE SUSP 40 MG/ML VIAL (J3301) As Ordered ONE
== END ==
LOC: M PT 08-30 16:31
PROVIDERS: ATTEND Physician Assistant
DX: M54.2 Cervicalgia (principal); M70.62 Trochanteric bursitis, left hip

== ENCOUNTER → 2019-10-02 | Outpatient (CLI) | payer OTHER ==
--- NOTE | 2019-10-04 03:23 | ECWPNPC ---
PATIENT NAME: CAMILO ARMSTRONG : 1960 GENDER: MALE VISIT DATE: 10/02/2019 DISCHARGE DATE: 10/02/19 1245 VISIT LOCKED DATE TIME: PHYSICIAN: ARCELIA WEBER RESOURCE: ARCELIA WEBER REASON FOR APPOINTMENT 1. POST BILATERAL THERAPEUTIC FACET BLOCK L3-L4 L4-L5 THROUGH [facility] INSURANCE FUND. HISTORY OF PRESENT ILLNESS HISTORY OF PRESENT ILLNESS: PAIN THE PATIENT DESCRIBES THE PAIN... 59-YEAR-OLD MALE PATIENT IN FOR POST LUMBAR FACET BLOCK FOLLOW-UP. HE RATES HIS PAIN PREPROCEDURE AT A 9 OUT OF 10 AND POSTPROCEDURE AT A 5 OUT OF 10. HE FURTHER STATES THIS LASTED ONLY A FEW DAYS. HIS PAIN CURRENTLY IS RATED AN 8 OUT OF 10 AND DESCRIBES IT ACHING, BURNING, SORE, SHARP, AND STABBING. 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 THE PATIENT SAYS HE IS EXPERIENCING SOME DISCOMFORT, PAIN, AND SPASTICITY IN HIS BACK. THE PATIENT SAYS HIS CURRENT MEDICATION REGIMEN OF TRAMADOL AND PERCOCET FOR SOMATIC PAIN, GABAPENTIN FOR NEUROPATHIC PAIN, AND TIZANIDINE FOR SPASTICITY IS HELPING HIM REMAIN MOBILE AND FUNCTIONAL. FALL RISK SCREENING: SCREENING :NO FALLS REPORTED IN THE LAST YEAR CURRENT MEDICATIONS TAKING LISINOPRIL 2.5MG TABLET 1 TAB ORALLY AT BEDTIME TAKING ASPIRIN 81 MG TABLET DELAYED RELEASE 1 TAB ORALLY DAILY TAKING NASACORT AQ 55 MCG/ACT AEROSOL 1 SPRAY IN EACH NOSTRIL NASALLY ONCE A DAY TAKING ADVAIR DISKUS 250-50 MCG/DOSE MISCELLANEOUS 1 INHALATION. ALWAYS RINSE YOUR MOUTH OUT AFTER USE ONCE A DAY TAKING NITROSTAT 0.4 MG TABLET SUBLINGUAL 1 TAB SUBLINGUAL TAB1 TAB FOR CHEST PAIN IF NO RELIEF IN 5 MINUTES TAKE 2ND NITRO IF NO RELIEF AFTER 5 MINUTES TAKE 3RD NITRO ER TAKING MIRALAX 17 GM POWDER 17GM ORALLY DAILY NEEDED TAKING MAGNESIUM 64 MG CAPSULE 1 TAB ORALLY BID TAKING MULTIVITAMINS 1 TABLET DIRECTED ORALLY DAILY TAKING ZONISAMIDE 50 MG CAPSULE 1 CAP ORALLY ONCE DAILY TAKING ALDACTONE 25 MG TABLET 1/2 TAB ORALLY DAILY TAKING LASIX 40 MG TABLET 1 TAB ORALLY BID NEEDED TAKING ATENOLOL 50 MG TABLET 1 TABLET ORALLY BID TAKING AMIODARONE HCL 200 MG TABLET 1 TABLET ORALLY BID TAKING POTASSIUM CHLORIDE ER 20 MEQ TABLET EXTENDED RELEASE 1 TABLET WITH FOOD ORALLY BID TAKING LEVOTHYROXINE SODIUM 25 MCG TABLET TAKE ONE TABLET BY MOUTH EVERY MORNING ON AN EMPTY STOMACH ORALLY ONCE A DAY TAKING OXYBUTYNIN CHLORIDE ER 5 MG TABLET EXTENDED RELEASE 24 HOUR 1 TABLET ORALLY ONCE A DAY TAKING COLACE 100 MG CAPSULE 1 CAPSULE ORALLY TWICE DAILY TAKING METFORMIN HCL 500 MG TABLET TAKE ONE TABLET BY MOUTH EVERY MORNING AND 2 EVERY EVENING WITH DINNER TAKING LIPITOR 80 MG TABLET 1 TABLET ORALLY ONCE A DAY AT BEDTIME TAKING NYSTATIN [id number] UNIT/GM CREAM 1 APPLICATION TO AFFECTED AREA EXTERNALLY TWICE A DAY TAKING DETROL 2 MG TABLET 1 TABLET ORALLY TWICE A DAY TAKING SUCRALFATE 1 GM TABLET 1 TABLET, CRUSH IT AND MIX IT WITH 10ML OF WATER ORALLY QID TAKING MECLIZINE HCL 25 MG TABLET 1 TABLET ORALLY 1-2 TIMES DAILY NEEDED TAKING TIZANIDINE HCL 4 MG TABLET 1 TABLET NEEDED ORALLY EVERY 6 HOURS NEEDED MDD3 TAKING VITAMIN D-3 5000 UNIT TABLET 1 TABLET ORALLY ONCE A DAY TAKING DRISDOL 55082 UNIT CAPSULE 1 CAPSULE ORALLY EVERY OTHER WEEK TAKING ONDANSETRON HCL 4 MG TABLET 1 TABLET ORALLY EVERY 6 HOURS NEEDED TAKING PANTOPRAZOLE SODIUM 20 MG TABLET DELAYED RELEASE 1 TABLET ORALLY BID TAKING VENTOLIN HFA 108 (90 BASE) MCG/ACT AEROSOL SOLUTION 2 PUFFS INHALATION EVERY 4-6 HOURS NEEDED TAKING PERCOCET 5-325 MG TABLET 1 TABLET ORALLY Q 4 HRS PRN PAIN MDD=5 TAKING TRAMADOL HCL ER 100 MG TABLET EXTENDED RELEASE 24 HOUR 1 TABLET ORALLY ONCE A DAY MDD=1 TAKING ZYRTEC 10 MG TABLET 1 TABLET ORALLY ONCE A DAY TAKING GABAPENTIN 400 MG CAPSULE 1 CAPSULE ORALLY FOUR TIMES DAILY MDD4 TAKING AVODART 0.5 MG CAPSULE 1 CAPSULE ORALLY ONCE A DAY NOT-TAKING CARAFATE 1 GM/10ML SUSPENSION 10 ML ON AN EMPTY STOMACH ORALLY FOUR TIMES DAILY NOT-TAKING TAMSULOSIN HCL 0.4 MG CAPSULE 1 CAPSULE ORALLY EVERY OTHER DAY NOT-TAKING STEGLATRO 5 MG TABLET 1 TABLET ORALLY ONCE A DAY NOT-TAKING SKELAXIN 400 MG TABLET 2 TABLETS ORALLY THREE TIMES A DAY NOT-TAKING BETAMETHASONE DIPROPIONATE AUG 0.05 % CREAM 1 APPLICATION TO AFFECTED AREA EXTERNALLY BID DISCONTINUED ADVAIR DISKUS 250-50 MCG/DOSE AEROSOL POWDER BREATH ACTIVATED INHALE ONE PUFF BY MOUTH EVERY DAY RISNE MOUTH AFTER USE MEDICATION LIST REVIEWED AND RECONCILED WITH THE PATIENT PAST MEDICAL HISTORY COPD- SPIROMETRY- 02/05/14- DECLINES AT THIS TIME CHF (SYSTOLIC AND DIASTOLIC)- CANNY HYPERLIPIDEMIA HYPERTENSION GERD CHRONIC LOW BACK PAIN- W COMP- DR BOJORQUEZ- CHRONIC PAIN MEDS PER [facility] PAIN MANAGEMENT. 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 PERITONSILAR ABSCESS 1996 S/P AICD PLACMENT 2007 L4-S1 SPINAL DECOMPRESSION WITH INSTRUMENTED POSTERIOR AND INTERBODY FUSION. DUROTOMY REPAIR. ([facility] @ [facility]) 03/2011 EGD-REINDL NML 03/13/10 COLONOSCOPY- REINDL. DIVERTICULOSIS- REPEAT 5-10 YEARS 03/13/10 RIGHT KNEE SURGERY BY ORTHO 02/05 NEW ICD 12/29/16 MASS [id number] AGAIN 02/2018 REMOVAL TUMOR LEFT THORACIC 02/27/18 RIGHT KNEE REPLACEMENT 06/2018 REMOVAL OF TUMOR RIGHT BACK- DR. KAUFMAN 11/24/18 CYSTO 04/30/2019 FAMILY HISTORY FATHER: , BYPASS. KIDNEY CANCER HAD KIDNEY REMOVED. METASTATIC CANCER TO LUNGS., DIAGNOSED WITH UNSPECIFIED HEART DISEASE, HYPERTENSION, OTHER MALIGNANT NEOPLASM OF UNSPECIFIED SITE MOTHER: ALIVE, DIABETES, HYPERTENSION, UNSPECIFIED HEART DISEASE, OTHER SPECIFIED CONDITIONS INFLUENCING HEALTH STATUS SIBLINGS: 2 BROTHERS HAD BYPASS. SISTER HAS HEART ISSUES SINCE . 1 BROTHER HAD HYDROCELE. 2 BROTHER(S) , 5 SISTER(S) . 1 SON(S) , 1 DAUGHTER(S) - HEALTHY. FATHER-METASTATIC LUNG CA\\\\NMOTHER--HYPOTHYROID\\\\NOLDER BROTHER-STROKE\\\\NSON- ASTHMA. SOCIAL HISTORY GENERAL: TOBACCO USE ARE YOU A:FORMER SMOKER QUIT 2008 SMOKED FOR 33 YRS. 1 PACK PER DAY. EDUCATION LEVEL OF EDUCATION:COLLEGE LANGUAGE LANGUAGES SPOKEN:ANGUILLAN DOMESTIC VIOLENCE DO YOU FEEL SAFE IN YOUR ENVIRONMENT?YES RECREATIONAL DRUG USE DRUG USE?NO EXERCISE: WALKS. 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 N/A HAS THE PATIENT BEEN EDUCATED REGARDING HIS/HER PLAN OF CARE?YES HAS THE PATIENT BEEN EDUCATED REGARDING PAIN, THE RISK FOR PAIN, THE IMPORTANCE OF EFFECTIVE PAIN MANAGEMENT, AND THE PAIN ASSESSMENT PROCESS?YES LATEX QUESTIONNAIRE LATEX ALLERGY : HAVE YOU EVER DEVELOPED ANY TYPE OF REACTION AFTER HANDLING LATEX PRODUCTS SUCH RUBBER GLOVES, CONDOMS, DIAPHRAGMS, BALLOONS, SOCKS, OR UNDERWEAR?NO LATEX ALLERGY : HAVE YOU EVER DEVELOPED ANY TYPE OF REACTION DURING OR AFTER DENTAL APPOINTMENT, VAGINAL/RECTAL EXAMINATION, SURGICAL PROCEDURE, OR ANY OTHER EXPOSURE?NO DATE ASKED : 07/24/2019 LATEX RISK : HAVE YOU EVER HAD ANY DIFFICULTY BREATHING OR HIVES AFTER EATING OR HANDLING ANY FRUITS, OR VEGETABLES; SUCH KIWI, BANANAS, STONE FRUITS, OR CHESTNUTSNO LATEX RISK : DO YOU HAVE A PREVIOUS PERSONAL HISTORY OF MORE THAN NINE SURGERIES, SPINA BIFIDA, OR REPEATED CATHERIZATIONS? NO LATEX RISK : ARE YOU FREQUENTLY EXPOSED TO LATEX PRODUCTS IN YOUR OCCUPATION?NO CAFFEINE CAFFEINE USE?NO ADVANCE DIRECTIVE ADVANCE DIRECTIVE DISCUSSED WITH PATIENT:YES PT HAS HCP CHILDREN 1. MARQUITA PATTI 2. [place] [place] COPY ON FILE WITH HOSPITAL. SCIENTOLOGIST [id number] PENTECOSTALISM MARITAL STATUS: .. ALCOHOL SCREENING DID YOU HAVE A DRINK CONTAINING ALCOHOL IN THE PAST YEAR?NO POINTS0 INTERPRETATIONNEGATIVE SEXUAL HX HAD SEX IN THE LAST 12 MONTHS (VAGINAL, ORAL, OR ANAL)?NO HAVE YOU EVER HAD AN STD?NO 05/09/18 REVIEWED WITH PT. 05/23/18 REVIEWED WITH PT LASREVIEWED WITH PATIENT 07/11/18 1346 JSREVIEWED WITH PATIENT 07/27/18 1108 JSREVIEWED WITH PATIENT 08/22/18 0911 JSREVIEWED WITH PATIENT 07/30/19 LASREVIEWED WITH PATIENT 04/17/19 1409 JSREVIEWED WITH PT 03/26/2019 0945 LASREVIEWED WITH PATIENT 10/03/18 1335 BVREVIEWED WITH PATIENT 11/23/18 1215 LASREVIEWED WITH PATIENT 07/06/19 1410 NLJPRE-SCREENING PHONE CALL COMPLETED 09/05/19 1049 JS. HOSPITALIZATION/MAJOR DIAGNOSTIC PROCEDURE CHF 2008 RELATED TO SURGERIES [facility] VTAC 06/21/18 SURGERY RELATED 06/2018 REVIEW OF SYSTEMS REVIEWED BY: PROVIDER: LANI CODY . CONSTITUTIONAL: ANY CHANGE IN YOUR MEDICAL CONDITION? NO . CHILLS NO . FEVER NO . INFECTION: DO YOU HAVE NEW INFECTIONS? NO . DO YOU HAVE HISTORY OF MRSA? NO . MUSCULOSKELETAL: ANY NEW PATTERNS OF PAIN OR NUMBNESS? NO . GASTROENTEROLOGY: ANY NEW CHANGE IN BOWEL CONTROL? NO . GENITOURINARY: ANY NEW CHANGE IN BLADDER CONTROL? NO . IS THERE A CHANCE YOU COULD BE ? NO . HEMATOLOGY/LYMPH: DO YOU TAKE ANY BLOOD THINNERS? (FOR EXAMPLE- COUMADIN, PLAVIX, AGGRENOX, PLATEL, PRADAXA, OR XARELTO) NO . WHEN WAS YOUR LAST DOSE? DATE: TIME: . NEUROLOGY: HAVE YOU FALLEN IN THE PAST 12 MONTHS? YES . ANY NEW EXTREMITY NUMBNESS OR WEAKNESS? NO . CARDIOLOGY: DO YOU HAVE A PACEMAKER OR DEFIBRILLATOR? YES . RESPIRATORY: HAVE YOU BEEN SICK IN THE PAST WEEK? NO . FEVER NO . FLU LIKE SYMPTOMS? NO . COUGH NO . INTEGUMENTARY: DO YOU HAVE ANY RASHES OR OPEN SORES? NO . ALLERGIC/IMMUNO: ARE YOU ALLERGIC TO IV DYE? NO . ANY NEW ALLERGIES? NO . PSYCHIATRIC: DO YOU HAVE THOUGHTS OF HURTING YOURSELF OR SOMEONE ELSE? NO . ARE YOU ABUSED, NEGLECTED, OR IN AN UNSAFE ENVIRONMENT? NO . ENDOCRINOLOGY: ARE YOU DIABETIC? YES . OTHER: DO YOU NEED ANY PRESCRIPTIONS? NO . IF YES, PLEASE LIST: ____ . ANY NEW PROBLEMS WITH YOUR MEDICATIONS? NO . WHEN DID YOU LAST EAT? ____ . WHEN DID YOU LAST DRINK? ____ . WHAT DID YOU LAST DRINK? ____ . NAME OF PERSON DRIVING YOU HOME? ____ . DO YOU HAVE ANY OTHER QUESTIONS OR CONCERNS NO . VITAL SIGNS WT 270 LBS, HT 72 IN, BMI 36.61 INDEX, BP 148/67 MM HG, HR 58 /MIN, RR 20 /MIN, TEMP 96.5 F, OXYGEN SAT % 95%, NA INITIALS SC 12:11, REVIEWED BY: [place]. EXAMINATION GENERAL EXAMINATION: GENERALNO ACUTE DISTRESS, WELL NOURISHED AND HYDRATED. PSYCHAPPROPRIATE MOOD AND AFFECT . LUNGS:CLEAR TO AUSCULTATION BILATERALLY, NO WHEEZES, RHONCHI, RALES. HEART:NO MURMURS, REGULAR RATE AND RHYTHM. ASSESSMENTS SPONDYLOSIS OF LUMBAR REGION WITHOUT MYELOPATHY OR RADICULOPATHY - M47.816 (PRIMARY) TREATMENT SPONDYLOSIS OF LUMBAR REGION WITHOUT MYELOPATHY OR RADICULOPATHY CLINICAL NOTES: 59-YEAR-OLD MALE IN FOR POST LUMBAR FACET BLOCK FOLLOW-UP. GIVEN PRESENTING SYMPTOMS AND RESULTS OF PHYSICAL EXAMINATION RECOMMENDED FOLLOW-UP IN 2 MONTHS. PATIENT EXPRESSED UNDERSTANDING OF AND WAS IN AGREEMENT WITH TREATMENT PLAN. GIVEN TIME TO ASK QUESTIONS AND EXPRESS CONCERNS., ISTOP REGISTRY REVIEWED AND DEMONSTRATES COMPLLIANCE. (REF # [id number] ) BRINGS IN MEDICATIONS WHICH IS APPROPRIATE FOR WHAT WAS DISPENSED. RECENT URINE TOXICOLOGY REVIEWED. NO UNAUTHORIZED MEDICATIONS. NO ILLICIT SUBSTANCES AND PRESCRIBED MEDICATIONS WERE PRESENT. PROCEDURES PN WORKMANS' COMP OPINION IN YOUR OPINION, WAS THE INCIDENT THAT THE PATIENT DESCRIBED THE COMPETENT MEDICAL CAUSE OF THIS INJURY/ILLNESS? YES ARE THE PATIENT'S COMPLAINTS CONSISTENT WITH HIS/HER HISTORY OF THE INJURY/ILLNESS? YES IS THE PATIENT'S HISTORY OF THE INJURY/ILLNESS CONSISTENT WITH YOUR OBJECTIVE FINDING? YES WHAT IS THE PERCENTAGE OF TEMPORARY IMPAIRMENT? MODERATE TO MARKED = 66.7% IS THE PATIENT WORKING? NO DOCTOR ON SITE: THELMA NUNEZ MD PROCEDURE CODES FA211 ESTABILISHED PATIENT [facility] CHARGE DISPOSITION & COMMUNICATION FOLLOW UP 2 MONTHS (REASON: WORKER'S COMP. BACK PAIN) ELECTRONICALLY SIGNED BY BEN AGUIRRE ON 10/03/2019 AT 08:19 AM EST DISCLAIMER : THIS IS A VISIT SUMMARY EXTRACTED FROM THE [email or web address] CHART. IT IS NOT A COPY OF THE [email or web address] PROGRESS NOTE. JULIETA
== END ==
LOC: M PAIN 11:30
PROVIDERS: ATTEND Family Medicine
DX: M47.816 Spondylosis without myelopathy or radiculopathy, lumbar region (principal); I50.9 Heart failure, unspecified; Z79.82 Long term (current) use of aspirin; Z79.891 Long term (current) use of opiate analgesic; Z79.899 Other long term (current) drug therapy; Z87.891 Personal history of nicotine dependence; Z88.8 Allergy status to other drugs, medicaments and biological substances; Z91.048 Other nonmedicinal substance allergy status; Z91.018 Allergy to other foods

== ENCOUNTER 2019-10-03 15:15 | Outpatient (RCR) | payer OTHER ==
[~2019-10-03 15:15] MED LIST changes: +ONDA-83 PO; -ONDA4TAB5 PO; +OXYB-54 PO; -OXYB5TAB3 PO; +ZONI50CA11 PO; -ZONI50CA3 PO
[2019-10-22] MEDS ORDERED: VITA500079 PO (14:38)
[2019-10-22] MEDS ORDERED: TIZA4CAP6 PO (14:38)
[2019-10-22] MEDS ORDERED: [UNRECOGNIZED DRUG - OTHER] OU (14:38)
[2019-10-22] MEDS ORDERED: KETO2CR EXT (14:38)
[2019-10-22] MEDS ORDERED: PANT40TA3 PO (14:38)
[2019-10-22] MEDS ORDERED: VITA200028 PO (14:38)
[2019-10-22] MEDS ORDERED: MULTCAP PO (14:38)
[2019-10-22] MEDS ORDERED: CETI-14 PO (14:38)
[2019-10-22] MEDS ORDERED: SM GAS RELIEF PO (14:40)
== END 2019-10-26 ==
LOC: M PT 15:15
PROVIDERS: ATTEND Physician Assistant
DX: M54.2 Cervicalgia (principal); M70.62 Trochanteric bursitis, left hip

== ENCOUNTER → 2019-10-05 | Outpatient (CLI) | payer OTHER ==
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
== END ==
LOC: M PAIN 10:30
PROVIDERS: ATTEND Family Medicine
DX: M79.18 Myalgia, other site (principal)

== ENCOUNTER → 2019-10-29 | Outpatient (REF) | payer OTHER ==
[~2019-10-29] MED LIST changes: +CETI-14 PO; +KETO2CR EXT; +MULTCAP PO; +PANT40TA3 PO; +SM GAS RELIEF PO; +TIZA4CAP6 PO; +VITA200028 PO; +VITA500079 PO; +[UNRECOGNIZED DRUG - OTHER] OU
[2019-10-29 17:44] LABS: HEMATOCRIT 41.4 % (42.0-52.0); HEMOGLOBIN 12.9 g/dl (13.5-17.5); MEAN CORPUSCULAR HEMOGLOBIN 29.7 pg (27.0-33.0); MEAN CORPUSCULAR HGB CONC 31.2 g/dl (32.0-36.5); MEAN CORPUSCULAR VOLUME 95.4 fl (80.0-96.0); PLATELET COUNT, AUTOMATED 236 10^3/uL (150-450); RED BLOOD COUNT 4.34 10^6/uL (4.30-6.10); WHITE BLOOD COUNT 6.8 10^3/uL (4.0-10.0)
[2019-10-29 17:57] LABS: INR 1.01
[2019-10-29 17:58] LABS: PARTIAL THROMBOPLASTIN TIME 25.6 SECONDS (25.0-38.4)
[2019-10-29 18:02] LABS: BLOOD UREA NITROGEN 18 MG/DL (7-18); CALCIUM LEVEL 8.6 MG/DL (8.8-10.2); CARBON DIOXIDE LEVEL 27 MEQ/L (21-32); CHLORIDE LEVEL 112 MEQ/L (98-107); CREATININE FOR GFR 1.01 MG/DL (0.70-1.30); GLOMERULAR FILTRATION RATE > 60.0 (>49); GLUCOSE, FASTING 95 MG/DL (70-100); POTASSIUM SERUM 4.3 MEQ/L (3.5-5.1); SODIUM LEVEL 145 MEQ/L (136-145)
== END ==
LOC: M SFHCPLAZ 15:41
PROVIDERS: ATTEND Physician Assistant
DX: Z01.818 Encounter for other preprocedural examination (principal)

== ENCOUNTER → 2019-10-30 | Outpatient (CLI) | payer OTHER | LOC: M LAB 10:06 | PROVIDERS: ATTEND Family Medicine | DX: E55.9 Vitamin D deficiency, unspecified (principal) ==

== ENCOUNTER → 2019-10-30 | Outpatient (CLI) | payer OTHER ==
[2019-10-30 11:20] LABS: BLOOD UREA NITROGEN 17 MG/DL (7-18); CALCIUM LEVEL 8.6 MG/DL (8.8-10.2); CARBON DIOXIDE LEVEL 26 MEQ/L (21-32); CHLORIDE LEVEL 114 MEQ/L (98-107); CREATININE FOR GFR 0.96 MG/DL (0.70-1.30); GLOMERULAR FILTRATION RATE > 60.0 (>49); GLUCOSE, FASTING 107 MG/DL (70-100); POTASSIUM SERUM 4.4 MEQ/L (3.5-5.1); SODIUM LEVEL 145 MEQ/L (136-145)
== END ==
LOC: M LAB 10:01
PROVIDERS: ATTEND Physician Assistant
DX: I50.42 Chronic combined systolic (congestive) and diastolic (congestive) heart failure (principal)

== ENCOUNTER → 2019-10-30 | Outpatient (CLI) | payer OTHER ==
[2019-10-30 10:55] LABS: BASO % 0.7 % (0.0-1.0); EOS # 0.1 10^3/uL (0.0-0.5); EOS % 2.3 % (0.0-3.0); HEMATOCRIT 38.5 % (42.0-52.0); HEMOGLOBIN 12.3 g/dl (13.5-17.5); LYMPH # 1.2 10^3/uL (1.5-5.0); LYMPH % 20.4 % (24.0-44.0); MEAN CORPUSCULAR HEMOGLOBIN 30.4 pg (27.0-33.0); MEAN CORPUSCULAR HGB CONC 31.9 g/dl (32.0-36.5); MEAN CORPUSCULAR VOLUME 95.3 fl (80.0-96.0); MONO # 0.7 10^3/uL (0.0-0.8); MONO % 11.5 % (0.0-5.0); NEUTROPHILS # 3.9 10^3/uL (1.5-8.5); NEUTROPHILS % 64.3 % (36.0-66.0); PLATELET COUNT, AUTOMATED 228 10^3/uL (150-450); RED BLOOD COUNT 4.04 10^6/uL (4.30-6.10)
[2019-10-30 11:18] LABS: BLOOD UREA NITROGEN 18 MG/DL (7-18); CALCIUM LEVEL 8.3 MG/DL (8.8-10.2); CARBON DIOXIDE LEVEL 27 MEQ/L (21-32); CHLORIDE LEVEL 113 MEQ/L (98-107); CREATININE FOR GFR 0.96 MG/DL (0.70-1.30); GLOMERULAR FILTRATION RATE > 60.0 (>49); GLUCOSE, FASTING 110 MG/DL (70-100); POTASSIUM SERUM 4.5 MEQ/L (3.5-5.1); SODIUM LEVEL 145 MEQ/L (136-145)
[2019-10-30 11:19] LABS: ALBUMIN 3.3 GM/DL (3.2-5.2); ALT/SGPT 48 U/L (12-78); AMYLASE 23 U/L (25-115); BILIRUBIN,TOTAL 0.3 MG/DL (0.2-1.0); LIPASE 82 U/L (73-393); TOTAL PROTEIN 5.7 GM/DL (6.4-8.2)
== END ==
LOC: M LAB 10:10
PROVIDERS: ATTEND Physician Assistant Medical
DX: R10.13 Epigastric pain (principal)

== ENCOUNTER 2019-11-05 10:08 | Day surgery (SDC) | payer OTHER ==
[~2019-11-05] VITALS: Ht 182.9 cm; Wt 117.9 kg
[~2019-11-05 10:08] MED LIST changes: +LR 1,000 ML IV ONE
[2019-11-05] MEDS ORDERED: ceFAZolin 2 GM/D5W 50 ML IV BAG (J0690 PER 500MG) As Ordered ONE (11:34)
[2019-11-05] MEDS ORDERED: propofoL 200 MG/20 ML VIAL As Ordered ONE (11:58)
[2019-11-05] MEDS ORDERED: LIDOCAINE 2% INJ 100 MG/5 ML SDV (FOR ANES.) As Ordered ONE (11:58)
[2019-11-05] MEDS ORDERED: fentaNYL 100 MCG/2 ML INJECTION (J3010) As Ordered ONE (11:59)
[2019-11-05] MEDS ORDERED: ONDANSETRON 4MG/2ML VIAL (J2405) As Ordered ONE (11:59)
[2019-11-05] MEDS ORDERED: dexameTHASONE 4 MG/ML 1ML VIAL (J1100) As Ordered ONE (11:59)
[2019-11-05] MEDS ORDERED: MIDAZOLAM INJ 2 MG/2 ML VIAL (J2250) As Ordered ONE (11:59)
[2019-11-05] MEDS ORDERED: ROPIvacaine 0.5% 30 ML INJECTION (J2795 PER 1MG) As Ordered ONE (12:56)
[2019-11-05] MEDS ORDERED: ceFAZolin SOD 2 GM in IV 1 EA IV ONE (13:15)
[2019-11-05] MEDS ORDERED: ROCURONIUM BROMIDE 50 MG/5 ML VIAL As Ordered ONE (13:35)
[2019-11-05] MEDS ORDERED: ACETAMINOPHEN 1000MG 100ML IV BTL (OFIRMEV) (J0131 PER 10MG) As Ordered ONE (13:44)
[2019-11-05] MEDS ORDERED: SUGAMMADEX SODIUM 500 MG/5 ML VIAL (BRIDION) As Ordered ONE (14:01)
--- NOTE | 2019-11-05 14:37 | RO ---
DATE OF OPERATION: 11/05/2019 PREOPERATIVE DIAGNOSIS: Right knee pain following knee replacement with mechanical symptoms of catching and locking. POSTOPERATIVE DIAGNOSIS: Right knee pain following knee replacement with mechanical symptoms of catching and locking, with fairly extensive scar tissue throughout the patellofemoral joint and throughout both gutters and in the anterior portion of the knee. PROCEDURE: Right knee operative arthroscopy with debridement of scar tissue and synovectomy of medial and lateral compartments and patellofemoral compartment. SURGEON: Pedro Garcia MD ANESTHESIA: General. ESTIMATED BLOOD LOSS: Minimal COMPLICATIONS: None. INDICATIONS: 59-year-old gentleman who has had multiple medical problems who had a knee replacement in the past and did well initially, but then started getting some catching and mechanical symptoms. He wished to ahead with surgical treatment having failed conservative management. He understood the nature of this, the risks of bleeding, infection, damage to nerves, vessels, persistent pain, stiffness, among others. He understood that even though we can debride the scar tissue is sometimes will recur and the results of arthroscopic treatment on a knee replacement are somewhat unpredictable in general. PROCEDURE: The patient was taken to the operating room and placed in supine position after general anesthesia was induced. I then created inferomedial and inferolateral portals after a time out was performed and identified the anterior portion of the knee. It was very difficult to visualize due to a pretty extensive scarring in the anterior aspect of the knee and around the notch, which was carefully meticulously debrided with a shaver. I then proceeded back to the patellofemoral joint and there was some thickened tissue around the patella, around the periphery of the patella, such as almost a meniscus type shaped scar. This was carefully debrided having to switch back and forth between the portals. I then proceed on both gutters and there was fairly extensive scarring in both gutters, which was debrided with the shaver. They even appeared to be some medial plica that was debrided. I then reexamined the entire joint. I did not see anything of significance in the medial and lateral compartments posteriorly, although difficult to visualize in a knee replacement. I irrigated, removed the instrumentation, closed the portals using #4-0 nylon suture, injected 30 mL of Naropin. Sterile dressing was applied. Tourniquet was deflated. He was taken to the recovery room in stable condition. There were no known complications. The plan will be routine postop.
[2019-11-05] MEDS ORDERED: ONDANSETRON 4MG/2ML VIAL (J2405) IV PRN (14:45)
[2019-11-05] MEDS ORDERED: LR 1,000 ML IV SCH ×2 (14:45→15:46)
[2019-11-05] MEDS ORDERED: fentaNYL 100 MCG/2 ML INJECTION (J3010) IV PRN (14:45)
[2019-11-05] MEDS: oxyCODONE 5MG TAB PO PRN ×2 (14:56→15:39)
[2019-11-05] MEDS ORDERED: ACETAMINOPH W/CODEINE #3 TAB UD PO PRN ×2 (15:46)
[2019-11-05] MEDS ORDERED: PERCOCET 5MG/325MG TAB PO PRN (15:46)
[2019-11-05 18:35] VITALS: BP 146/64
== END 2019-11-05 18:54 | disposition home or self-care (01) ==
LOC: M SDC 10:08
PROVIDERS: ATTEND Orthopaedic Surgery
DX: M25.561 Pain in right knee (principal); Z96.651 Presence of right artificial knee joint; T84.022A Instability of internal right knee prosthesis, initial encounter; Y79.2 Prosthetic and other implants, materials and accessory orthopedic devices associated with adverse incidents; L90.5 Scar conditions and fibrosis of skin; E78.2 Mixed hyperlipidemia; I50.42 Chronic combined systolic (congestive) and diastolic (congestive) heart failure; I11.0 Hypertensive heart disease with heart failure; I47.2 Ventricular tachycardia; Z95.810 Presence of automatic (implantable) cardiac defibrillator; I35.9 Nonrheumatic aortic valve disorder, unspecified; E78.00 Pure hypercholesterolemia, unspecified; E66.9 Obesity, unspecified; M51.26 Other intervertebral disc displacement, lumbar region; E11.9 Type 2 diabetes mellitus without complications; J44.9 Chronic obstructive pulmonary disease, unspecified; M19.90 Unspecified osteoarthritis, unspecified site; E03.9 Hypothyroidism, unspecified; R42 Dizziness and giddiness; M79.7 Fibromyalgia; G47.30 Sleep apnea, unspecified; N40.0 Benign prostatic hyperplasia without lower urinary tract symptoms; R32 Unspecified urinary incontinence; Z86.19 Personal history of other infectious and parasitic diseases; Z86.718 Personal history of other venous thrombosis and embolism; Z87.891 Personal history of nicotine dependence; Z91.018 Allergy to other foods; Z88.8 Allergy status to other drugs, medicaments and biological substances; Z91.048 Other nonmedicinal substance allergy status; Z79.899 Other long term (current) drug therapy; Z79.51 Long term (current) use of inhaled steroids; Z79.82 Long term (current) use of aspirin; Z79.84 Long term (current) use of oral hypoglycemic drugs
CPT/HCPCS: 29876; J0131; J0690; J1100; J2250; J2405; J2795; J3010

== ENCOUNTER 2019-11-05 23:22 | Emergency (ER) | payer OTHER ==
[~2019-11-05] VITALS: Ht 182.9 cm; Wt 120.0 kg
[~2019-11-05 23:22] MED LIST changes: -LR 1,000 ML IV ONE
[2019-11-06 02:01] VITALS: BP 132/70
== END 2019-11-06 02:50 | disposition home or self-care (01) ==
LOC: M ED 23:22
DX: M96.830 Postprocedural hemorrhage of a musculoskeletal structure following a musculoskeletal system procedure (principal); Y83.8 Other surgical procedures as the cause of abnormal reaction of the patient, or of later complication, without mention of misadventure at the time of the procedure; E11.9 Type 2 diabetes mellitus without complications; I11.0 Hypertensive heart disease with heart failure; K21.9 Gastro-esophageal reflux disease without esophagitis; J45.909 Unspecified asthma, uncomplicated; Z88.8 Allergy status to other drugs, medicaments and biological substances; Z91.018 Allergy to other foods; Z91.048 Other nonmedicinal substance allergy status; Z88.4 Allergy status to anesthetic agent; Z79.84 Long term (current) use of oral hypoglycemic drugs; Z79.899 Other long term (current) drug therapy; Z79.891 Long term (current) use of opiate analgesic; Z98.1 Arthrodesis status; Z95.810 Presence of automatic (implantable) cardiac defibrillator; R51 Headache; R42 Dizziness and giddiness; I50.9 Heart failure, unspecified; E78.00 Pure hypercholesterolemia, unspecified; G47.30 Sleep apnea, unspecified; J44.9 Chronic obstructive pulmonary disease, unspecified; M79.7 Fibromyalgia

== ENCOUNTER → 2019-11-30 | Outpatient (CLI) | payer OTHER ==
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
== END ==
LOC: M PAIN 11:30
PROVIDERS: ATTEND Family Medicine
DX: M51.17 Intervertebral disc disorders with radiculopathy, lumbosacral region (principal); J44.9 Chronic obstructive pulmonary disease, unspecified; I50.42 Chronic combined systolic (congestive) and diastolic (congestive) heart failure; I11.0 Hypertensive heart disease with heart failure; E78.5 Hyperlipidemia, unspecified; K21.9 Gastro-esophageal reflux disease without esophagitis; E66.9 Obesity, unspecified; Z95.0 Presence of cardiac pacemaker; M79.7 Fibromyalgia; Z68.36 Body mass index [BMI] 36.0-36.9, adult; E11.9 Type 2 diabetes mellitus without complications; Z79.82 Long term (current) use of aspirin; Z79.84 Long term (current) use of oral hypoglycemic drugs; Z79.899 Other long term (current) drug therapy; Z87.891 Personal history of nicotine dependence; Z88.6 Allergy status to analgesic agent; Z88.8 Allergy status to other drugs, medicaments and biological substances; Z91.018 Allergy to other foods

== ENCOUNTER 2019-12-04 12:26 | Outpatient (RCR) | payer OTHER | END 2019-12-25 | LOC: M PT 12:26 | PROVIDERS: ATTEND Orthopaedic Surgery | DX: Z96.651 Presence of right artificial knee joint (principal) ==

== ENCOUNTER → 2019-12-10 | Outpatient (REF) | payer OTHER ==
[2019-12-10 18:08] LABS: BLOOD UREA NITROGEN 13 MG/DL (7-18); CALCIUM LEVEL 8.8 MG/DL (8.8-10.2); CARBON DIOXIDE LEVEL 26 MEQ/L (21-32); CHLORIDE LEVEL 110 MEQ/L (98-107); CREATININE FOR GFR 0.93 MG/DL (0.70-1.30); GLOMERULAR FILTRATION RATE > 60.0 (>49); GLUCOSE, FASTING 104 MG/DL (70-100); POTASSIUM SERUM 4.6 MEQ/L (3.5-5.1); SODIUM LEVEL 140 MEQ/L (136-145)
== END ==
LOC: M SFHCPLAZ 14:12
PROVIDERS: ATTEND Family Medicine
DX: K21.9 Gastro-esophageal reflux disease without esophagitis (principal); R10.13 Epigastric pain

== ENCOUNTER → 2019-12-11 | Outpatient (CLI) | payer OTHER ==
--- NOTE | 2019-12-11 20:26 | REPPI ---
Clinical: Upper abdominal pain. Technique: Upright view of the chest with supine and upright views of the abdomen and pelvis. Findings: Upright view of the chest demonstrates no free air below diaphragm to suspect pneumoperitoneum. Supine and upright views of the abdomen and pelvis suggest fecal stasis and possible constipation without obstruction or perforation. No obvious organomegaly or abnormal calcifications. Impression: Fecal stasis and possible constipation. No obstruction or perforation. Electronically Signed by Chadd Rivas MD 12/11/2019 08:18 P
== END ==
LOC: M PLAIMG 13:31
PROVIDERS: ATTEND Family Medicine
DX: R10.13 Epigastric pain (principal)

== ENCOUNTER → 2020-01-21 | Outpatient (REF) | payer OTHER ==
[2020-01-21 17:37] LABS: BLOOD UREA NITROGEN 19 MG/DL (7-18); CREATININE FOR GFR 0.93 MG/DL (0.70-1.30); GLOMERULAR FILTRATION RATE > 60.0 (>49)
== END ==
LOC: M LAB REF 16:43
PROVIDERS: ATTEND Thoracic Surgery (Cardiothoracic Vascular Surgery)
DX: R10.13 Epigastric pain (principal); R11.2 Nausea with vomiting, unspecified; Z01.812 Encounter for preprocedural laboratory examination

== ENCOUNTER → 2020-02-04 | Outpatient (CLI) | payer OTHER ==
[~2020-02-04] MED LIST changes: -LISI-1046 PO; +LISI2.5T2 PO; +VITAD1000T PO
== END ==
LOC: M LABSMTC 10:35
PROVIDERS: ATTEND Anesthesiology
DX: Z01.818 Encounter for other preprocedural examination (principal); Z11.59 Encounter for screening for other viral diseases

== ENCOUNTER 2020-02-07 08:09 | Day surgery (SDC) | payer OTHER ==
[~2020-02-07] VITALS: Ht 182.9 cm; Wt 120.2 kg
[~2020-02-07 08:09] MED LIST changes: +NS 1,000 ML IV ONE
[2020-02-07] MEDS ORDERED: LIDOCAINE 2% 100MG/5ML SDV (FOR ANES.) As Ordered ONE (08:39)
[2020-02-07] MEDS ORDERED: propofoL 500 MG/50 ML VIAL As Ordered ONE (08:39)
--- NOTE | 2020-02-07 08:52 | ROOR ---
Patient Name: Harley Johnson Procedure Date: 02/07/2020 8:31 AM Date of : 1960 Age: 60 Room: [facility] Gender: Male Note Status: Finalized Procedure: Upper GI endoscopy Indications: Heartburn Providers: Rashad PEDROZA MD Referring MD: ELLIE MUSE MD Requesting Provider: Medicines: Monitored Anesthesia Care Complications: No immediate complications. Procedure: Pre-Anesthesia Assessment: - The heart rate, respiratory rate, oxygen saturations, blood pressure, adequacy of pulmonary ventilation, and response to care were monitored throughout the procedure. The Endoscope was introduced through the mouth, and advanced to the second part of duodenum. The upper GI endoscopy was accomplished without difficulty. The patient tolerated the procedure well. Findings: The examined esophagus was normal. Mildly erythematous mucosa without bleeding was found in the gastric antrum. This was biopsied with a cold forceps for histology. The exam of the stomach was otherwise normal. The examined duodenum was normal. Impression: - Normal esophagus. - Erythematous mucosa in the antrum. Biopsied. - Othersise normal stomach. - Normal examined duodenum. Recommendation: - Continue present medications. - Observe patient's clinical course. - Return to referring physician as previously scheduled. Rashad Pedroza MD Rashad PEDROZA MD 02/07/2020 8:51:35 AM Electronically signed by Rashad PEDROZA MD Number of Addenda: 0 Note Initiated On: 02/07/2020 8:31 AM Estimated Blood Loss: Estimated blood loss: none.
--- NOTE | 2020-02-07 09:08 | ROOR ---
Patient Name: Harley Johnson Procedure Date: 02/07/2020 8:35 AM Date of : 1960 Age: 60 Room: [facility] Gender: Male Note Status: Finalized Procedure: Colonoscopy Indications: Screening for colorectal malignant neoplasm Providers: Rashad PEDROZA MD Referring MD: ELLIE MUSE MD Requesting Provider: Medicines: Monitored Anesthesia Care Complications: No immediate complications. Procedure: Pre-Anesthesia Assessment: - The heart rate, respiratory rate, oxygen saturations, blood pressure, adequacy of pulmonary ventilation, and response to care were monitored throughout the procedure. The Colonoscope was introduced through the anus and advanced to the cecum, identified by appendiceal orifice and ileocecal valve. The colonoscopy was performed without difficulty. The patient tolerated the procedure well. The quality of the bowel preparation was adequate. Findings: Hemorrhoids were found on perianal exam. A 4 mm polyp was found in the sigmoid colon. The polyp was sessile. The polyp was removed with a cold snare. Resection and retrieval were complete. Multiple medium-mouthed diverticula were found in the sigmoid colon, descending colon, transverse colon and ascending colon. The exam was otherwise without abnormality on direct and retroflexion views. Impression: - Hemorrhoids found on perianal exam. - One 4 mm polyp in the sigmoid colon, removed with a cold snare. Resected and retrieved. - Diverticulosis in the sigmoid colon, in the descending colon, in the transverse colon and in the ascending colon. - The examination was otherwise normal on direct and retroflexion views. Recommendation: - Repeat colonoscopy in 5 years for surveillance. - Return to referring physician as previously scheduled. Rashad Pedroza MD Rashad PEDROZA MD 02/07/2020 9:08:19 AM Electronically signed by Rashad PEDROZA MD Number of Addenda: 0 Note Initiated On: 02/07/2020 8:35 AM Estimated Blood Loss: Estimated blood loss: none.
[2020-02-07 09:25] VITALS: BP 108/49
== END 2020-02-07 09:32 | disposition home or self-care (01) ==
LOC: M OPP 08:09
PROVIDERS: ATTEND Internal Medicine Gastroenterology
DX: D12.5 Benign neoplasm of sigmoid colon (principal); K57.30 Diverticulosis of large intestine without perforation or abscess without bleeding; K64.8 Other hemorrhoids; K31.89 Other diseases of stomach and duodenum; R12 Heartburn; I50.9 Heart failure, unspecified; G47.30 Sleep apnea, unspecified; Z79.82 Long term (current) use of aspirin; Z79.891 Long term (current) use of opiate analgesic; Z79.899 Other long term (current) drug therapy; Z88.8 Allergy status to other drugs, medicaments and biological substances; Z91.018 Allergy to other foods; Z95.810 Presence of automatic (implantable) cardiac defibrillator; Z87.891 Personal history of nicotine dependence

== ENCOUNTER → 2020-02-08 | Outpatient (CLI) | payer OTHER ==
[~2020-02-08] MED LIST changes: -NS 1,000 ML IV ONE
== END ==
LOC: M LABSMTC 09:58
PROVIDERS: ATTEND Anesthesiology
DX: Z11.59 Encounter for screening for other viral diseases (principal)
CPT/HCPCS: C8903; U0003

== ENCOUNTER → 2020-02-14 | Outpatient (CLI) | payer OTHER ==
[~2020-02-14] MED LIST changes: +GASTROGRAFIN SOLUTION 30ML (Q9963) As Ordered ONE
== END ==
LOC: M RAD 08:27
PROVIDERS: ATTEND Thoracic Surgery (Cardiothoracic Vascular Surgery)
DX: R10.9 Unspecified abdominal pain (principal)

== ENCOUNTER → 2020-02-15 | Outpatient (CLI) | payer OTHER ==
[~2020-02-15] MED LIST changes: -GASTROGRAFIN SOLUTION 30ML (Q9963) As Ordered ONE; +ISOVUE-370 76% 100ML VIAL As Ordered ONE
--- NOTE | 2020-02-15 12:26 | REP ---
REASON: Colon cancer. PRIORS: None. CONTRAST: 100 mL of Isovue 370. Lung bases are clear. The contrast enhanced portion of the examination shows hepatic and splenic densities to be within normal limits. There are no choleliths or nephroliths. Contrast enhanced portion of the examination shows the liver, gallbladder, spleen, pancreas, adrenal glands and kidneys to be within normal limits. The abdominal aorta and para-aortic regions are within normal limits. The bowel loops and their mesenteries are within normal limits. There is no free fluid or free air. There is no intra-abdominal mass or adenopathy. CT PELVIS: The bowel loops and their mesenteries are within normal limits. There is sigmoid colon diverticulosis. There is no mass or adenopathy. There is no free fluid or free air. Bone window technique throughout the examination shows chronic emphysematous change. IMPRESSION: No acute disease. Electronically Signed by Didier Wagner DO 02/15/2020 01:39 P
== END ==
LOC: M RAD 10:02
PROVIDERS: ATTEND Thoracic Surgery (Cardiothoracic Vascular Surgery)
DX: Z12.11 Encounter for screening for malignant neoplasm of colon (principal); R10.13 Epigastric pain; D12.5 Benign neoplasm of sigmoid colon
CPT/HCPCS: 74177; Q9967

== ENCOUNTER → 2020-02-26 | Outpatient (CLI) | payer OTHER ==
[~2020-02-26] MED LIST changes: -ISOVUE-370 76% 100ML VIAL As Ordered ONE
[2020-02-26 14:41] LABS: ALBUMIN 3.2 GM/DL (3.2-5.2); ALT/SGPT 57 U/L (12-78); BILIRUBIN,TOTAL 0.3 MG/DL (0.2-1.0); BLOOD UREA NITROGEN 19 MG/DL (7-18); CARBON DIOXIDE LEVEL 29 MEQ/L (21-32); CHLORIDE LEVEL 107 MEQ/L (98-107); CREATININE FOR GFR 0.98 MG/DL (0.70-1.30); GLOMERULAR FILTRATION RATE > 60.0 (>49); GLUCOSE, FASTING 140 MG/DL (70-100); MAGNESIUM LEVEL 1.8 MG/DL (1.8-2.4); POTASSIUM SERUM 4.6 MEQ/L (3.5-5.1); SODIUM LEVEL 141 MEQ/L (136-145)
== END ==
LOC: M LAB 13:18
PROVIDERS: ATTEND Physician Assistant
DX: I50.42 Chronic combined systolic (congestive) and diastolic (congestive) heart failure (principal)

== ENCOUNTER → 2020-02-27 | Outpatient (CLI) | payer OTHER ==
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
== END ==
LOC: M PAIN 13:00
PROVIDERS: ATTEND Family Medicine
DX: M51.17 Intervertebral disc disorders with radiculopathy, lumbosacral region (principal)

== ENCOUNTER → 2020-02-29 | Outpatient (CLI) | payer OTHER ==
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
== END ==
LOC: M PAIN 13:00
PROVIDERS: ATTEND Family Medicine
DX: M54.2 Cervicalgia (principal); M70.62 Trochanteric bursitis, left hip

== ENCOUNTER → 2020-03-05 | Outpatient (CLI) | payer OTHER ==
--- NOTE | 2020-03-05 17:47 | REP ---
REASON: Palpable mass right lateral abdominal wall. Multiple sonographic images of the clinical region of interest show no cystic or solid masses. There is no evidence of a hernia. A negative ultrasound examination does not obviate further anatomical imaging with modalities such as CT.
== END ==
LOC: M WHC 15:29
PROVIDERS: ATTEND Family Medicine
DX: Q79.59 Other congenital malformations of abdominal wall (principal)

== ENCOUNTER → 2020-03-31 | Outpatient (CLI) | payer OTHER | LOC: M LABSMTC 09:50 | PROVIDERS: ATTEND Anesthesiology | DX: Z03.818 Encounter for observation for suspected exposure to other biological agents ruled out (principal); Z11.59 Encounter for screening for other viral diseases | CPT/HCPCS: C9803; U0003 ==

== ENCOUNTER → 2020-04-03 | Outpatient (CLI) | payer OTHER ==
[~2020-04-03] MED LIST changes: -AMIO200T PO; +AMIO200T3 PO; +BUPIVACAINE HCL 0.25% 30ML VIAL As Ordered ONE; +D31000TA2 PO; +ISOVUE-M 300 61% 15ML VIAL As Ordered ONE; +LIDOCAINE 1% SDV 30ML VIAL As Ordered ONE; +PANT40TA29 PO; -PANT40TA3 PO; +TRIAMCINOLONE ACETONIDE SUSP 40 MG/ML VIAL (J3301) As Ordered ONE; -VITAD1000T PO; +oxyCODONE 5MG TAB As Ordered ONE
--- NOTE | 2020-04-03 23:19 | REP ---
C-ARM VIEWS PROXIMAL RIGHT FEMUR: Three C-arm views proximal right femur are performed during injection by Dr. Fairbanks. Needle overlies the proximal right femur. 9.1 seconds fluoroscopy time utilized. Electronically Signed by Pillo Aguilar MD 04/06/2020 10:36 P
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
== END ==
LOC: M PAIN 10:45
PROVIDERS: ATTEND Anesthesiology
DX: M70.62 Trochanteric bursitis, left hip (principal)
CPT/HCPCS: 20610; 77002; J3301; Q9967

== ENCOUNTER → 2020-04-21 | Outpatient (POV) | payer OTHER ==
[~2020-04-21] MED LIST changes: -BUPIVACAINE HCL 0.25% 30ML VIAL As Ordered ONE; -ISOVUE-M 300 61% 15ML VIAL As Ordered ONE; -LIDOCAINE 1% SDV 30ML VIAL As Ordered ONE; -TRIAMCINOLONE ACETONIDE SUSP 40 MG/ML VIAL (J3301) As Ordered ONE; -oxyCODONE 5MG TAB As Ordered ONE
== END ==
LOC: M PAIN 14:30
PROVIDERS: ATTEND Family Medicine
DX: M70.61 Trochanteric bursitis, right hip (principal)

== ENCOUNTER → 2020-04-29 | Outpatient (CLI) | payer OTHER | LOC: M PAIN 09:15 | PROVIDERS: ATTEND Family Medicine | DX: M51.17 Intervertebral disc disorders with radiculopathy, lumbosacral region (principal) ==

== ENCOUNTER → 2020-05-15 | Outpatient (POV) | payer OTHER | LOC: M PAIN 08:00 | PROVIDERS: ATTEND Family Medicine | DX: M70.61 Trochanteric bursitis, right hip (principal) ==

== ENCOUNTER → 2020-06-04 | Outpatient (CLI) | payer OTHER | LOC: M LABSMTC 11:43 | PROVIDERS: ATTEND Anesthesiology | DX: Z20.828 Contact with and (suspected) exposure to other viral communicable diseases (principal) | CPT/HCPCS: C9803; U0003 ==

== ENCOUNTER → 2020-06-09 | Outpatient (CLI) | payer OTHER ==
[~2020-06-09] MED LIST changes: +BUPIVACAINE HCL 0.25% 30ML VIAL As Ordered ONE; +ISOVUE-M 300 61% 15ML VIAL As Ordered ONE; +LIDOCAINE 1% SDV 30ML VIAL As Ordered ONE; +TRIAMCINOLONE ACETONIDE SUSP 40 MG/ML VIAL (J3301) As Ordered ONE; +oxyCODONE 5MG TAB As Ordered ONE
--- NOTE | 2020-06-25 13:19 | REP ---
PARTIAL LEFT HIP: 5-VIEWS HISTORY: Injection procedure for pain. 15 seconds of fluoroscopy time is reported. FINDINGS: A sequence of five last image hold fluoroscopically obtained spot radiographs of the left hip document various needle positions associated with injection procedure. JULIETA
== END ==
LOC: M PAIN 12:49
PROVIDERS: ATTEND Anesthesiology
DX: M70.61 Trochanteric bursitis, right hip (principal)

== ENCOUNTER → 2020-06-12 | Outpatient (CLI) | payer OTHER ==
[~2020-06-12] MED LIST changes: -BUPIVACAINE HCL 0.25% 30ML VIAL As Ordered ONE; -ISOVUE-M 300 61% 15ML VIAL As Ordered ONE; -LIDOCAINE 1% SDV 30ML VIAL As Ordered ONE; -TRIAMCINOLONE ACETONIDE SUSP 40 MG/ML VIAL (J3301) As Ordered ONE; -oxyCODONE 5MG TAB As Ordered ONE
== END ==
LOC: M PAIN 14:05
PROVIDERS: ATTEND Family Medicine
DX: M51.17 Intervertebral disc disorders with radiculopathy, lumbosacral region (principal)

== ENCOUNTER → 2020-06-24 | Outpatient (CLI) | payer OTHER | LOC: M PAIN 13:59 | PROVIDERS: ATTEND Family Medicine | DX: M70.62 Trochanteric bursitis, left hip (principal) ==

== ENCOUNTER → 2020-06-24 | Outpatient (CLI) | payer OTHER ==
[2020-06-24 18:06] LABS: BLOOD UREA NITROGEN 20 MG/DL (7-18); CALCIUM LEVEL 9.2 MG/DL (8.8-10.2); CARBON DIOXIDE LEVEL 27 MEQ/L (21-32); CHLORIDE LEVEL 108 MEQ/L (98-107); CREATININE FOR GFR 1.08 MG/DL (0.70-1.30); GLOMERULAR FILTRATION RATE > 60.0 (>49); GLUCOSE, FASTING 95 MG/DL (70-100); POTASSIUM SERUM 4.4 MEQ/L (3.5-5.1); SODIUM LEVEL 139 MEQ/L (136-145)
--- NOTE | 2020-07-02 11:31 | REP ---
CHEST X-RAY: 2-VIEWS HISTORY: Ventricular tachycardia. Chronic combined systolic and diastolic heart failure. COMPARISON: Chest x-ray 07/23/2019. FINDINGS: A unipolar pacemaker remains in the right heart via the left side. Heart is not enlarged. Cardiothoracic ratio measures 44.5%. Pulmonary vasculature is not increased. There is no evidence of pleural effusion or pulmonary edema. No infiltrate is seen. There are mild degenerative changes in the thoracic spine. IMPRESSION: Pacemaker in place. Otherwise, no active cardiopulmonary disease. MTDD
== END ==
LOC: M LAB 14:46
PROVIDERS: ATTEND Physician Assistant
DX: I50.42 Chronic combined systolic (congestive) and diastolic (congestive) heart failure (principal); I42.0 Dilated cardiomyopathy; I47.2 Ventricular tachycardia

== ENCOUNTER → 2020-07-17 | Outpatient (REF) | payer OTHER ==
[2020-07-17 18:17] LABS: APPEARANCE, URINE CLEAR (CLEAR); BACTERIA, URINE AUTO NEGATIVE (NEGATIVE); BILIRUBIN, URINE AUTO NEGATIVE (NEGATIVE); BLOOD, URINE BLOOD NEGATIVE (NEGATIVE); COLOR, URINE YELLOW (YELLOW); GLUCOSE, URINE (UA) AUTO NEGATIVE (NEGATIVE); KETONE, URINE AUTO NEGATIVE (NEGATIVE); LEUKOCYTE ESTERASE, URINE AUTO NEGATIVE (NEGATIVE); MUCUS, URINE SMALL (NEGATIVE); NITRITE, URINE AUTO NEGATIVE (NEGATIVE); PROTEIN, URINE AUTO NEGATIVE (NEGATIVE); RBC, URINE AUTO 0 /HPF (0-3); SPECIFIC GRAVITY URINE AUTO 1.029 (1.002-1.035); SQUAMOUS EPITHELIAL CELL UR AU 2 /HPF (0-6); UROBILINOGEN, URINE AUTO 0.2 mg/dL (0.0-2.0); WBC, URINE AUTO 1 /HPF (0-3)
== END ==
LOC: M SMT 17:04
PROVIDERS: ATTEND Nurse Practitioner Family
DX: R30.0 Dysuria (principal)

== ENCOUNTER → 2020-07-24 | Outpatient (CLI) | payer OTHER | LOC: M LABSMTC 11:00 | PROVIDERS: ATTEND Anesthesiology | DX: Z11.59 Encounter for screening for other viral diseases (principal) | CPT/HCPCS: C9803; U0003 ==

== ENCOUNTER → 2020-07-29 | Outpatient (CLI) | payer OTHER ==
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
== END ==
LOC: M PAIN 13:30
PROVIDERS: ATTEND Anesthesiology
DX: M96.1 Postlaminectomy syndrome, not elsewhere classified (principal); I50.42 Chronic combined systolic (congestive) and diastolic (congestive) heart failure; I11.0 Hypertensive heart disease with heart failure; J44.9 Chronic obstructive pulmonary disease, unspecified; E78.5 Hyperlipidemia, unspecified; K21.9 Gastro-esophageal reflux disease without esophagitis; E66.9 Obesity, unspecified; Z95.810 Presence of automatic (implantable) cardiac defibrillator; Z87.891 Personal history of nicotine dependence; Z79.82 Long term (current) use of aspirin; Z79.899 Other long term (current) drug therapy; Z88.6 Allergy status to analgesic agent; Z88.8 Allergy status to other drugs, medicaments and biological substances; Z91.018 Allergy to other foods; Z91.048 Other nonmedicinal substance allergy status

== ENCOUNTER → 2020-08-23 | Outpatient (CLI) | payer OTHER | LOC: M LABSMTC 10:46 | PROVIDERS: ATTEND Anesthesiology | DX: Z20.828 Contact with and (suspected) exposure to other viral communicable diseases (principal) ==

== ENCOUNTER → 2020-08-27 | Outpatient (CLI) | payer OTHER ==
[~2020-08-27] MED LIST changes: +ISOVUE-M 300 61% 15ML VIAL As Ordered ONE; +LIDOCAINE 1% SDV 30ML VIAL As Ordered ONE; +methylPREDNISolone SUSP 40MG/ML 1ML VIAL (DEPO MEDROL) As Ordered ONE; +oxyCODONE 5MG TAB As Ordered ONE
--- NOTE | 2020-08-27 17:36 | REP ---
INDICATION: LIMBAR EPIDURAL STEROID INJECTION. COMPARISON: None. TECHNIQUE: Two views. 33.5 seconds of fluoroscopy time is reported. FINDINGS: A sequence of 2 last image hold fluoroscopically obtained spot radiograph(s) of the lumbar spine document(s) needle position(s) and contrast injection associated with injection procedure. IMPRESSION: Procedural imaging. <Electronically signed by Dale Mcrae > 08/27/20 5325
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
== END ==
LOC: M PAIN 13:30
PROVIDERS: ATTEND Anesthesiology
DX: M96.1 Postlaminectomy syndrome, not elsewhere classified (principal); I50.42 Chronic combined systolic (congestive) and diastolic (congestive) heart failure; I11.0 Hypertensive heart disease with heart failure; J44.9 Chronic obstructive pulmonary disease, unspecified; E78.5 Hyperlipidemia, unspecified; K21.9 Gastro-esophageal reflux disease without esophagitis; E66.9 Obesity, unspecified; M79.7 Fibromyalgia; Z95.0 Presence of cardiac pacemaker; Z68.35 Body mass index [BMI] 35.0-35.9, adult; Z79.82 Long term (current) use of aspirin; Z79.84 Long term (current) use of oral hypoglycemic drugs; Z79.891 Long term (current) use of opiate analgesic; Z88.6 Allergy status to analgesic agent; Z88.8 Allergy status to other drugs, medicaments and biological substances; Z91.018 Allergy to other foods; Z91.048 Other nonmedicinal substance allergy status
CPT/HCPCS: 62323; J1030; Q9967

== ENCOUNTER → 2020-09-02 | Outpatient (CLI) | payer OTHER ==
[~2020-09-02] MED LIST changes: -ISOVUE-M 300 61% 15ML VIAL As Ordered ONE; -LIDOCAINE 1% SDV 30ML VIAL As Ordered ONE; -methylPREDNISolone SUSP 40MG/ML 1ML VIAL (DEPO MEDROL) As Ordered ONE; -oxyCODONE 5MG TAB As Ordered ONE
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
== END ==
LOC: M PAIN 10:15
PROVIDERS: ATTEND Family Medicine
DX: M70.62 Trochanteric bursitis, left hip (principal); G89.29 Other chronic pain; E11.9 Type 2 diabetes mellitus without complications; J44.9 Chronic obstructive pulmonary disease, unspecified; K21.9 Gastro-esophageal reflux disease without esophagitis; M79.7 Fibromyalgia; Z95.0 Presence of cardiac pacemaker; Z96.651 Presence of right artificial knee joint; Z87.891 Personal history of nicotine dependence; Z88.6 Allergy status to analgesic agent; Z88.8 Allergy status to other drugs, medicaments and biological substances; Z91.018 Allergy to other foods; Z91.02 Food additives allergy status; Z79.82 Long term (current) use of aspirin; Z79.84 Long term (current) use of oral hypoglycemic drugs; Z79.891 Long term (current) use of opiate analgesic; Z79.899 Other long term (current) drug therapy

== ENCOUNTER → 2020-09-10 | Outpatient (CLI) | payer OTHER ==
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
== END ==
LOC: M PAIN 14:00
PROVIDERS: ATTEND Family Medicine
DX: G89.29 Other chronic pain (principal); M51.17 Intervertebral disc disorders with radiculopathy, lumbosacral region; I50.42 Chronic combined systolic (congestive) and diastolic (congestive) heart failure; I11.0 Hypertensive heart disease with heart failure; J44.9 Chronic obstructive pulmonary disease, unspecified; E78.5 Hyperlipidemia, unspecified; K21.9 Gastro-esophageal reflux disease without esophagitis; E66.9 Obesity, unspecified; F10.11 Alcohol abuse, in remission; Z95.0 Presence of cardiac pacemaker; M79.7 Fibromyalgia; Z87.891 Personal history of nicotine dependence; Z79.82 Long term (current) use of aspirin; Z79.84 Long term (current) use of oral hypoglycemic drugs; Z79.899 Other long term (current) drug therapy; Z79.891 Long term (current) use of opiate analgesic; Z88.6 Allergy status to analgesic agent; Z88.8 Allergy status to other drugs, medicaments and biological substances; Z91.018 Allergy to other foods; Z91.048 Other nonmedicinal substance allergy status; Z68.35 Body mass index [BMI] 35.0-35.9, adult

== ENCOUNTER → 2020-09-30 | Outpatient (CLI) | payer OTHER ==
[~2020-09-30] MED LIST changes: -LISI-542 PO; +LISI-898 PO
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
== END ==
LOC: M PAIN 13:30
PROVIDERS: ATTEND Family Medicine
DX: M70.62 Trochanteric bursitis, left hip (principal); G89.29 Other chronic pain

== ENCOUNTER → 2020-10-31 | Outpatient (CLI) | payer OTHER | LOC: M LABSMTC 10:52 | PROVIDERS: ATTEND Anesthesiology | DX: Z20.822 Contact with and (suspected) exposure to COVID-19 (principal) ==

== ENCOUNTER → 2020-11-05 | Outpatient (CLI) | payer OTHER ==
[~2020-11-05] MED LIST changes: +BUPIVACAINE HCL 0.25% 30ML VIAL As Ordered ONE; +ISOVUE-M 300 61% 15ML VIAL As Ordered ONE; +LIDOCAINE 1% SDV 30ML VIAL As Ordered ONE; +TRIAMCINOLONE ACETONIDE SUSP 40 MG/ML VIAL (J3301) As Ordered ONE; +oxyCODONE 5MG TAB As Ordered ONE
--- NOTE | 2020-11-05 16:57 | REP ---
INDICATION: LEFT GREATER TROCHANTERIC BURSAL INJECTION. COMPARISON: None. TECHNIQUE: Four views. 17.3 seconds of fluoroscopy time is reported. FINDINGS: A sequence of 4 last image hold fluoroscopically obtained spot radiographs left hip document needle position associated with injection procedure. IMPRESSION: Procedural imaging. <Electronically signed by Dale Mcrae > 11/05/20 [id number]
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
== END ==
LOC: M PAIN 11:00
PROVIDERS: ATTEND Anesthesiology
DX: M70.62 Trochanteric bursitis, left hip (principal); I50.42 Chronic combined systolic (congestive) and diastolic (congestive) heart failure; I11.0 Hypertensive heart disease with heart failure; J44.9 Chronic obstructive pulmonary disease, unspecified; E78.5 Hyperlipidemia, unspecified; K21.9 Gastro-esophageal reflux disease without esophagitis; M54.5 Low back pain; E66.9 Obesity, unspecified; Z68.34 Body mass index [BMI] 34.0-34.9, adult; Z95.810 Presence of automatic (implantable) cardiac defibrillator; M79.7 Fibromyalgia; Z87.891 Personal history of nicotine dependence; Z79.82 Long term (current) use of aspirin; Z79.891 Long term (current) use of opiate analgesic; Z79.84 Long term (current) use of oral hypoglycemic drugs; Z79.899 Other long term (current) drug therapy; Z88.6 Allergy status to analgesic agent; Z88.8 Allergy status to other drugs, medicaments and biological substances; Z91.018 Allergy to other foods; Z91.040 Latex allergy status
CPT/HCPCS: 20610; 77002; J3301; Q9967

== ENCOUNTER → 2020-11-11 | Outpatient (CLI) | payer OTHER ==
[~2020-11-11] MED LIST changes: -BUPIVACAINE HCL 0.25% 30ML VIAL As Ordered ONE; -ISOVUE-M 300 61% 15ML VIAL As Ordered ONE; -LIDOCAINE 1% SDV 30ML VIAL As Ordered ONE; -TRIAMCINOLONE ACETONIDE SUSP 40 MG/ML VIAL (J3301) As Ordered ONE; -oxyCODONE 5MG TAB As Ordered ONE
--- NOTE | 2020-11-12 03:58 | REP ---
INDICATION: R22.9RT SIDED SWELING OF BACK AT THORACIC/LUMBAR JUNCTION COMPARISON: None TECHNIQUE: Realtime grayscale and color B-mode ultrasound examination using linear high-frequency and curved array transducers. FINDINGS: Directed ultrasound examination overlying the right back at the thoracolumbar junction demonstrates nonspecific findings without discrete focal fluid collection, mass lesion or abnormality. IMPRESSION: No obvious discrete abnormality by sonographic evaluation. <Electronically signed by Chadd Rivas > 11/12/20 0354
== END ==
LOC: M WHC 11:36
PROVIDERS: ATTEND Family Medicine
DX: R22.9 Localized swelling, mass and lump, unspecified (principal)

== ENCOUNTER → 2020-12-05 | Outpatient (CLI) | payer OTHER ==
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
== END ==
LOC: M PAIN 11:30
PROVIDERS: ATTEND Family Medicine
DX: G89.29 Other chronic pain (principal); M70.61 Trochanteric bursitis, right hip; E11.9 Type 2 diabetes mellitus without complications; J44.9 Chronic obstructive pulmonary disease, unspecified; K21.9 Gastro-esophageal reflux disease without esophagitis; M79.7 Fibromyalgia; Z95.0 Presence of cardiac pacemaker; Z87.891 Personal history of nicotine dependence; Z88.6 Allergy status to analgesic agent; Z88.8 Allergy status to other drugs, medicaments and biological substances; Z91.018 Allergy to other foods; Z91.02 Food additives allergy status; Z79.82 Long term (current) use of aspirin; Z79.84 Long term (current) use of oral hypoglycemic drugs; Z79.891 Long term (current) use of opiate analgesic; Z79.899 Other long term (current) drug therapy

== ENCOUNTER → 2020-12-05 | Outpatient (CLI) | payer OTHER ==
--- NOTE | 2020-12-05 13:36 | REP ---
INDICATION: CHRONIC SYSTOLIC COMPARISON: 06/24/2020 TECHNIQUE: PA and lateral. FINDINGS: The mediastinum and cardiac silhouette are normal. Pacemaker in stable position. The lung morris are clear and without acute consolidation, effusion, or pneumothorax. The skeletal structures are intact and normal. IMPRESSION: No acute cardiopulmonary process. <Electronically signed by Chadd Rivas > 12/05/20 [id number]
[2020-12-05 14:10] LABS: BLOOD UREA NITROGEN 17 MG/DL (7-18); CALCIUM LEVEL 8.8 MG/DL (8.8-10.2); CARBON DIOXIDE LEVEL 30 MEQ/L (21-32); CHLORIDE LEVEL 110 MEQ/L (98-107); CHOLESTEROL LEVEL 153 MG/DL (<200); CREATININE FOR GFR 1.06 MG/DL (0.70-1.30); GLOMERULAR FILTRATION RATE > 60.0 (>49); GLUCOSE, FASTING 112 MG/DL (70-100); HDL CHOLESTEROL 64 MG/DL (>40); LDL CHOLESTEROL 76 MG/DL (<100); NON-HDL-C 89 MG/DL; POTASSIUM SERUM 4.7 MEQ/L (3.5-5.1); SODIUM LEVEL 143 MEQ/L (136-145); TRIGLYCERIDES LEVEL 64 MG/DL (<150)
== END ==
LOC: M LAB 13:03
PROVIDERS: ATTEND Physician Assistant
DX: I50.42 Chronic combined systolic (congestive) and diastolic (congestive) heart failure (principal); I25.10 Atherosclerotic heart disease of native coronary artery without angina pectoris; E78.2 Mixed hyperlipidemia; I47.2 Ventricular tachycardia

== ENCOUNTER → 2020-12-09 | Outpatient (CLI) | payer OTHER ==
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
== END ==
LOC: M PAIN 13:30
PROVIDERS: ATTEND Family Medicine
DX: M47.817 Spondylosis without myelopathy or radiculopathy, lumbosacral region (principal); Z79.891 Long term (current) use of opiate analgesic; I50.42 Chronic combined systolic (congestive) and diastolic (congestive) heart failure; I11.0 Hypertensive heart disease with heart failure; J44.9 Chronic obstructive pulmonary disease, unspecified; E78.5 Hyperlipidemia, unspecified; K21.9 Gastro-esophageal reflux disease without esophagitis; M79.7 Fibromyalgia; Z87.891 Personal history of nicotine dependence; Z79.84 Long term (current) use of oral hypoglycemic drugs; Z79.899 Other long term (current) drug therapy; Z91.018 Allergy to other foods; Z88.6 Allergy status to analgesic agent; Z88.8 Allergy status to other drugs, medicaments and biological substances; Z91.048 Other nonmedicinal substance allergy status

== ENCOUNTER → 2020-12-10 | Outpatient (CLI) | payer OTHER ==
--- NOTE | 2020-12-11 23:13 | ECWPNPC ---
PATIENT NAME: CAMILO ARMSTRONG : 1960 GENDER: MALE VISIT DATE: 12/10/2020 DISCHARGE DATE: 12/10/20 1011 VISIT LOCKED DATE TIME: PHYSICIAN: ARCELIA WEBER RESOURCE: ARCELIA WEBER REASON FOR APPOINTMENT 1. UTOX - OK PER ARCELIA CURRENT MEDICATIONS TAKING LISINOPRIL 2.5MG TABLET 1 TAB ORALLY AT BEDTIME TAKING NITROSTAT 0.4 MG TABLET SUBLINGUAL 1 TAB SUBLINGUAL TAB1 TAB FOR CHEST PAIN IF NO RELIEF IN 5 MINUTES TAKE 2ND NITRO IF NO RELIEF AFTER 5 MINUTES TAKE 3RD NITRO ER TAKING ASPIRIN 81 MG TABLET DELAYED RELEASE 1 TAB ORALLY DAILY TAKING ATENOLOL 50 MG TABLET 1 TABLET ORALLY BID TAKING AMIODARONE HCL 200 MG TABLET 1 TABLET ORALLY BID TAKING ALDACTONE 25 MG TABLET 1/2 TAB ORALLY DAILY TAKING LASIX 40 MG TABLET 1 TAB ORALLY BID NEEDED TAKING POTASSIUM CHLORIDE ER 20 MEQ TABLET EXTENDED RELEASE 1 TABLET WITH FOOD ORALLY BID TAKING LIPITOR 80 MG TABLET 1 TABLET ORALLY ONCE A DAY AT BEDTIME TAKING ADVAIR DISKUS 250-50 MCG/DOSE MISCELLANEOUS 1 INHALATION. ALWAYS RINSE YOUR MOUTH OUT AFTER USE ONCE A DAY TAKING NASACORT AQ 55 MCG/ACT AEROSOL 1 SPRAY IN EACH NOSTRIL NASALLY ONCE A DAY TAKING NYSTATIN [id number] UNIT/GM CREAM 1 APPLICATION TO AFFECTED AREA EXTERNALLY TWICE A DAY TAKING MAGNESIUM 64 MG CAPSULE 1 TAB ORALLY BID TAKING COLACE 100 MG CAPSULE 1 CAPSULE ORALLY TWICE DAILY TAKING MULTIVITAMINS 1 TABLET DIRECTED ORALLY DAILY TAKING VALIUM 5 MG TABLET 1 TABLET NEEDED ORALLY TWICE A DAY, NOTES: MONTHS AGO TAKING MIRALAX 17 GM POWDER 17GM ORALLY DAILY NEEDED TAKING SIMETHICONE 80 MG TABLET CHEWABLE 1 TABLET ORALLY FOUR TIMES A DAY PRN TAKING MECLIZINE HCL 25 MG TABLET 1 TABLET ORALLY 1-2 TIMES DAILY NEEDED TAKING PANTOPRAZOLE SODIUM 20 MG TABLET DELAYED RELEASE 1 TABLET ORALLY BID TAKING LEVOTHYROXINE SODIUM 25 MCG TABLET TAKE ONE TABLET BY MOUTH EVERY MORNING ON AN EMPTY STOMACH ORALLY ONCE A DAY TAKING VENTOLIN HFA 108 (90 BASE) MCG/ACT AEROSOL SOLUTION 2 PUFFS INHALATION EVERY 4-6 HOURS NEEDED TAKING OXYBUTYNIN CHLORIDE ER 5 MG TABLET EXTENDED RELEASE 24 HOUR 1 TABLET ORALLY ONCE A DAY TAKING ZYRTEC 10 MG TABLET 1 TABLET ORALLY ONCE A DAY TAKING VITAMIN D-3 5000 UNIT TABLET 1 TABLET ORALLY ONCE A DAY TAKING ZONISAMIDE 50 MG CAPSULE 1 CAP ORALLY ONCE DAILY TAKING METFORMIN HCL 500 MG TABLET TAKE ONE TABLET BY MOUTH EVERY MORNING AND 2 EVERY EVENING WITH DINNER ORALLY DAILY TAKING DETROL 2 MG TABLET 1 TABLET ORALLY TWICE A DAY TAKING DRISDOL 02755 UNIT CAPSULE 1 CAPSULE ORALLY EVERY OTHER WEEK TAKING AVODART 0.5 MG CAPSULE 1 CAPSULE ORALLY ONCE A DAY TAKING GABAPENTIN 400 MG CAPSULE 1 CAPSULE ORALLY FOUR TIMES DAILY MDD4 TAKING SUCRALFATE 1 GM TABLET 1 TABLET, CRUSH IT AND MIX IT WITH 10ML OF WATER ORALLY QID TAKING TIZANIDINE HCL 4 MG TABLET 1 TABLET NEEDED ORALLY THREE TIMES DAILY TAKING ONDANSETRON HCL 4 MG TABLET TAKE ONE TABLET BY MOUTH EVERY 6 HOURS NEEDED TAKING PERCOCET 10-325 MG TABLET 1 TABLET ORALLY Q8H PRN MDD3 TAKING TRAMADOL HCL ER 100 MG TABLET EXTENDED RELEASE 24 HOUR 1 TABLET ORALLY TWICE A DAY MDD=2 UNKNOWN RANITIDINE HCL 75 MG TABLET 1 TABLET NEEDED ORALLY TWICE A DAY MEDICATION LIST REVIEWED AND RECONCILED WITH THE PATIENT ALLERGIES NO[ALLERGIES VERIFIED] ASSESSMENTS CREW BOSS (CURRENT) USE OF OPIATE ANALGESIC - Z79.891 (PRIMARY) TREATMENT ASSISTED (CURRENT) USE OF OPIATE ANALGESIC LAB: URINE TEST GROUP ONDINA ROWLAND 12/10/2020 10:06:59 AM > VALIUM 3 MOS AGO, ROBERTA 12/10/20, PERCOSET 12/10/20, TRAMADOL 12/10/20 DISPOSITION & COMMUNICATION ELECTRONICALLY SIGNED BY BEN AGUIRRE ON 12/11/2020 AT 08:52 AM EDT DISCLAIMER : THIS IS A VISIT SUMMARY EXTRACTED FROM THE [employer] CHART. IT IS NOT A COPY OF THE [employer] PROGRESS NOTE. JULIETA
== END ==
LOC: M PAIN 09:45
PROVIDERS: ATTEND Family Medicine
DX: Z79.899 Other long term (current) drug therapy (principal)

== ENCOUNTER → 2020-12-18 | Outpatient (CLI) | payer OTHER ==
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
== END ==
LOC: M PAIN 14:15
PROVIDERS: ATTEND Family Medicine
DX: M54.14 Radiculopathy, thoracic region (principal); G89.29 Other chronic pain; E11.9 Type 2 diabetes mellitus without complications; J44.9 Chronic obstructive pulmonary disease, unspecified; K21.9 Gastro-esophageal reflux disease without esophagitis; M79.7 Fibromyalgia; Z95.0 Presence of cardiac pacemaker; Z87.891 Personal history of nicotine dependence; Z88.6 Allergy status to analgesic agent; Z88.8 Allergy status to other drugs, medicaments and biological substances; Z91.018 Allergy to other foods; Z91.02 Food additives allergy status; Z79.82 Long term (current) use of aspirin; Z79.84 Long term (current) use of oral hypoglycemic drugs; Z79.891 Long term (current) use of opiate analgesic; Z79.899 Other long term (current) drug therapy

== ENCOUNTER → 2020-12-24 | Outpatient (CLI) | payer OTHER ==
[~2020-12-24] MED LIST changes: +ISOVUE-370 76% 100ML VIAL As Ordered ONE
--- NOTE | 2020-12-29 15:56 | REP ---
INDICATION: SPONDYLOSIS LUMBAR SACRAL REGION. COMPARISON: CT lumbar spine 04/13/2016. TECHNIQUE: Axial CT images with multiplanar reformations. FINDINGS: The patient is status post laminectomy at the L4 and L5 levels. There is interbody fusion with evidence of incomplete fusion and sclerosis and endplate changes. There is persistent lucency around the interbody fusion material. There are bilateral pedicle screws and hardware at L4-L5 and S1. No evidence of hardware loosening or hardware failure. There is minimal lucency around the S1 pedicle screw. The appearance is overall stable from the comparison study of 04/13/2016. At L1-2 and L2-3 no significant canal or foraminal narrowing At L3-4 disc bulge with mild canal narrowing and [id number] bilateral foraminal narrowing At L4-5 level fusion, mild canal narrowing and [id number] bilateral foraminal narrowing At L5-S1 mild canal narrowing moderate left and mild right foraminal narrowing. There is dilatation of the infrarenal abdominal aorta to 24 mm. IMPRESSION: 1. S/p L4 and L5 laminectomy with fusion of L4-L5 and S1 with pedicle screws and posterior hardware. No definite evidence of hardware loosening or hardware failure. 2. Interbody fusion with lucency and incomplete fusion, stable from the comparison study of 2015. 3. Degenerative disc disease as described without evidence of limiting canal or foraminal stenosis. 4. Infrarenal abdominal aortic dilatation with atherosclerotic calcification measures approximately 24 mm. This is similar to previous. <Electronically signed by Chon Peter > 12/29/20 2534
== END ==
LOC: M RAD 10:55
PROVIDERS: ATTEND Family Medicine
DX: M47.817 Spondylosis without myelopathy or radiculopathy, lumbosacral region (principal); M43.26 Fusion of spine, lumbar region

== ENCOUNTER → 2021-02-04 | Outpatient (CLI) | payer OTHER ==
[~2021-02-04] MED LIST changes: +GABA-283 PO; -GABA-845 PO; -ISOVUE-370 76% 100ML VIAL As Ordered ONE
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
== END ==
LOC: M PAIN 14:00
PROVIDERS: ATTEND Family Medicine
DX: M25.551 Pain in right hip (principal); M25.552 Pain in left hip; G89.29 Other chronic pain; E11.9 Type 2 diabetes mellitus without complications; J44.9 Chronic obstructive pulmonary disease, unspecified; K21.9 Gastro-esophageal reflux disease without esophagitis; M79.7 Fibromyalgia; Z95.810 Presence of automatic (implantable) cardiac defibrillator; Z87.891 Personal history of nicotine dependence; Z88.6 Allergy status to analgesic agent; Z88.8 Allergy status to other drugs, medicaments and biological substances; Z91.018 Allergy to other foods; Z91.02 Food additives allergy status; Z79.82 Long term (current) use of aspirin; Z79.84 Long term (current) use of oral hypoglycemic drugs; Z79.891 Long term (current) use of opiate analgesic; Z79.899 Other long term (current) drug therapy

== ENCOUNTER → 2021-02-09 | Outpatient (CLI) | payer OTHER ==
--- NOTE | 2021-02-09 16:58 | REP ---
INDICATION: RADICULOPTHY. COMPARISON: Comparison CT imaging July 01, 2018.. TECHNIQUE: Helical scanning is acquired and 4 mm axial images are re-formatted. Coronal and sagittal MPR images are provided. FINDINGS: Thoracic vertebral body heights are preserved and alignment is normal. There are multiple Schmorl's nodes including the superior endplate of T8, T9, and T10. These are unchanged from comparison CT images July 01, 2018. There is right anterior discogenic spurring at T6-7 through T10-11. No bony destructive lesion is seen. No intraspinal or paraspinal mass lesion is observed. There is no evidence of focal disc protrusion or spinal canal compressive lesion. No bony neural foraminal encroachment is appreciated. Visualized lung morris are clear. Cardiac pain trans venous pacemaker is observed. IMPRESSION: There is diffuse degenerative disc disease. Findings are unchanged from 2018. No spinal canal compressive lesion or neural foraminal encroachment is visible. <Electronically signed by Dale Mcrae > 02/09/21 [id number]
== END ==
LOC: M RAD 16:21
PROVIDERS: ATTEND Family Medicine
DX: M54.14 Radiculopathy, thoracic region (principal); M51.34 Other intervertebral disc degeneration, thoracic region

== ENCOUNTER → 2021-02-16 | Outpatient (CLI) | payer OTHER ==
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
== END ==
LOC: M PAIN 10:30
PROVIDERS: ATTEND Family Medicine
DX: M79.18 Myalgia, other site (principal); I11.0 Hypertensive heart disease with heart failure; I50.42 Chronic combined systolic (congestive) and diastolic (congestive) heart failure; E11.9 Type 2 diabetes mellitus without complications; J44.9 Chronic obstructive pulmonary disease, unspecified; E78.5 Hyperlipidemia, unspecified; K21.9 Gastro-esophageal reflux disease without esophagitis; M54.5 Low back pain; M25.561 Pain in right knee; R42 Dizziness and giddiness; M79.7 Fibromyalgia; E66.9 Obesity, unspecified; F10.11 Alcohol abuse, in remission; Z95.810 Presence of automatic (implantable) cardiac defibrillator; Z87.891 Personal history of nicotine dependence; Z79.82 Long term (current) use of aspirin; Z79.84 Long term (current) use of oral hypoglycemic drugs; Z79.899 Other long term (current) drug therapy; Z79.891 Long term (current) use of opiate analgesic; Z88.6 Allergy status to analgesic agent; Z88.8 Allergy status to other drugs, medicaments and biological substances; Z91.018 Allergy to other foods; Z91.048 Other nonmedicinal substance allergy status; Z68.33 Body mass index [BMI] 33.0-33.9, adult

== ENCOUNTER → 2021-04-01 | Outpatient (CLI) | payer OTHER ==
[~2021-04-01] MED LIST changes: -DOXY100C37 PO; +DOXY1CAP62 PO; +OMEP40CA4 PO; -OMEP40CA97 PO
== END ==
LOC: M LABSMTC 13:21
PROVIDERS: ATTEND Anesthesiology
DX: Z01.812 Encounter for preprocedural laboratory examination (principal); Z20.822 Contact with and (suspected) exposure to COVID-19

== ENCOUNTER → 2021-04-03 | Outpatient (CLI) | payer OTHER ==
[2021-04-03 11:47] LABS: ALBUMIN 3.3 GM/DL (3.2-5.2); ALT/SGPT 55 U/L (12-78); BILIRUBIN,TOTAL 0.2 MG/DL (0.2-1.0); BLOOD UREA NITROGEN 18 MG/DL (7-18); CALCIUM LEVEL 8.7 MG/DL (8.8-10.2); CARBON DIOXIDE LEVEL 29 MEQ/L (21-32); CHLORIDE LEVEL 109 MEQ/L (98-107); CREATININE FOR GFR 0.97 MG/DL (0.70-1.30); GLOMERULAR FILTRATION RATE > 60.0 (>49); GLUCOSE, FASTING 130 MG/DL (70-100); POTASSIUM SERUM 4.4 MEQ/L (3.5-5.1); SODIUM LEVEL 141 MEQ/L (136-145); TOTAL PROTEIN 5.8 GM/DL (6.4-8.2)
== END ==
LOC: M LAB 09:34
PROVIDERS: ATTEND Physician Assistant
DX: I50.42 Chronic combined systolic (congestive) and diastolic (congestive) heart failure (principal)

== ENCOUNTER → 2021-04-06 | Outpatient (CLI) | payer OTHER ==
[~2021-04-06] MED LIST changes: +BUPIVACAINE HCL 0.25% 10ML VIAL As Ordered ONE; +BUPIVACAINE HCL 0.25% 30ML VIAL As Ordered ONE; +TRIAMCINOLONE ACETONIDE SUSP 40 MG/ML VIAL (J3301) As Ordered ONE
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
== END ==
LOC: M PAIN 14:00
PROVIDERS: ATTEND Anesthesiology
DX: M79.10 Myalgia, unspecified site (principal); E11.9 Type 2 diabetes mellitus without complications; G47.30 Sleep apnea, unspecified; J44.9 Chronic obstructive pulmonary disease, unspecified; K21.9 Gastro-esophageal reflux disease without esophagitis; Z87.891 Personal history of nicotine dependence; Z95.810 Presence of automatic (implantable) cardiac defibrillator; Z88.6 Allergy status to analgesic agent; Z88.8 Allergy status to other drugs, medicaments and biological substances; Z91.018 Allergy to other foods; Z91.02 Food additives allergy status; Z79.82 Long term (current) use of aspirin; Z79.84 Long term (current) use of oral hypoglycemic drugs; Z79.891 Long term (current) use of opiate analgesic; Z79.899 Other long term (current) drug therapy
CPT/HCPCS: 20552; J3301

== ENCOUNTER → 2021-04-20 | Outpatient (CLI) | payer OTHER ==
[~2021-04-20] MED LIST changes: -BUPIVACAINE HCL 0.25% 10ML VIAL As Ordered ONE; -BUPIVACAINE HCL 0.25% 30ML VIAL As Ordered ONE; -TRIAMCINOLONE ACETONIDE SUSP 40 MG/ML VIAL (J3301) As Ordered ONE
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
== END ==
LOC: M PAIN 11:00
PROVIDERS: ATTEND Family Medicine
DX: G89.29 Other chronic pain (principal); M79.18 Myalgia, other site; I50.32 Chronic diastolic (congestive) heart failure; I11.0 Hypertensive heart disease with heart failure; E11.9 Type 2 diabetes mellitus without complications; J44.9 Chronic obstructive pulmonary disease, unspecified; E78.5 Hyperlipidemia, unspecified; K21.9 Gastro-esophageal reflux disease without esophagitis; M54.5 Low back pain; M79.7 Fibromyalgia; R42 Dizziness and giddiness; E66.9 Obesity, unspecified; F10.11 Alcohol abuse, in remission; Z95.0 Presence of cardiac pacemaker; Z87.891 Personal history of nicotine dependence; Z79.82 Long term (current) use of aspirin; Z79.899 Other long term (current) drug therapy; Z79.891 Long term (current) use of opiate analgesic; Z88.5 Allergy status to narcotic agent; Z88.8 Allergy status to other drugs, medicaments and biological substances; Z91.048 Other nonmedicinal substance allergy status; Z91.018 Allergy to other foods; Z68.31 Body mass index [BMI] 31.0-31.9, adult

== ENCOUNTER → 2021-05-04 | Outpatient (CLI) | payer OTHER ==
[~2021-05-04] MED LIST changes: -AMIO200T3 PO; +AMIO200T49 PO; +DOXY-443 PO; -DOXY1CAP62 PO; -KLOR10TA76 PO; -LISI-898 PO; -LISI2.5T2 PO; +LISI2.5T9 PO; +LISI5TAB11 PO; +NASO50SP3; +POTA-136 PO
[2021-05-04 12:10] LABS: HEMATOCRIT 40.1 % (42.0-52.0); HEMOGLOBIN 12.8 g/dl (13.5-17.5); MEAN CORPUSCULAR HEMOGLOBIN 29.8 pg (27.0-33.0); MEAN CORPUSCULAR HGB CONC 31.9 g/dl (32.0-36.5); MEAN CORPUSCULAR VOLUME 93.5 fl (80.0-96.0); PLATELET COUNT, AUTOMATED 212 10^3/uL (150-450); RED BLOOD COUNT 4.29 10^6/uL (4.30-6.10); WHITE BLOOD COUNT 7.1 10^3/uL (4.0-10.0)
[2021-05-04 12:41] LABS: MALB URINE SIEMENS 10.5 MG/L
[2021-05-04 12:44] LABS: ALBUMIN 3.4 GM/DL (3.2-5.2); ALT/SGPT 58 U/L (12-78); BILIRUBIN,TOTAL 0.5 MG/DL (0.2-1.0); BLOOD UREA NITROGEN 23 MG/DL (7-18); CALCIUM LEVEL 8.8 MG/DL (8.8-10.2); CARBON DIOXIDE LEVEL 29 MEQ/L (21-32); CHLORIDE LEVEL 110 MEQ/L (98-107); CREATININE FOR GFR 0.98 MG/DL (0.70-1.30); GLOMERULAR FILTRATION RATE > 60.0 (>49); GLUCOSE, FASTING 104 MG/DL (70-100); MAGNESIUM LEVEL 2.2 MG/DL (1.8-2.4); SODIUM LEVEL 141 MEQ/L (136-145); TOTAL 25(OH) VITAMIN D 74.8 NG/ML (30.0-100.0)
[2021-05-04 13:28] LABS: HEMOGLOBIN A1c 6.2 %
== END ==
LOC: M LAB 11:15
PROVIDERS: ATTEND Family Medicine
DX: E11.9 Type 2 diabetes mellitus without complications (principal); I10 Essential (primary) hypertension; E78.5 Hyperlipidemia, unspecified; M54.5 Low back pain; J44.9 Chronic obstructive pulmonary disease, unspecified; E55.9 Vitamin D deficiency, unspecified; E83.42 Hypomagnesemia

== ENCOUNTER → 2021-06-16 | Outpatient (CLI) | payer OTHER ==
[~2021-06-16] MED LIST changes: +AMIO200T3 PO; -AMIO200T49 PO; -DOXY-443 PO; +DOXY1CAP62 PO; +LISI-898 PO; -LISI5TAB11 PO; -NASO50SP3
[2021-06-16 15:51] LABS: INR 0.88; PROTHROMBIN TIME 12.3 SECONDS (12.7-14.5)
[2021-06-16 15:52] LABS: PARTIAL THROMBOPLASTIN TIME 26.1 SECONDS (25.9-37.0)
[2021-06-16 16:06] LABS: ALBUMIN 3.3 GM/DL (3.2-5.2); ALT/SGPT 75 U/L (12-78); BILIRUBIN,TOTAL 0.3 MG/DL (0.2-1.0); BLOOD UREA NITROGEN 19 MG/DL (7-18); CALCIUM LEVEL 9.1 MG/DL (8.8-10.2); CARBON DIOXIDE LEVEL 28 MEQ/L (21-32); CHLORIDE LEVEL 108 MEQ/L (98-107); CREATININE FOR GFR 0.91 MG/DL (0.70-1.30); GLOMERULAR FILTRATION RATE > 60.0 (>49); GLUCOSE, FASTING 95 MG/DL (70-100); POTASSIUM SERUM 4.5 MEQ/L (3.5-5.1); SODIUM LEVEL 142 MEQ/L (136-145); TOTAL PROTEIN 6.2 GM/DL (6.4-8.2)
== END ==
LOC: M LAB 13:59
PROVIDERS: ATTEND Family Medicine
DX: H53.9 Unspecified visual disturbance (principal); R23.8 Other skin changes; R39.198 Other difficulties with micturition

== ENCOUNTER → 2021-07-02 | Outpatient (CLI) | payer OTHER ==
[~2021-07-02] MED LIST changes: +DOXY-443 PO; -DOXY1CAP62 PO
--- NOTE | 2021-07-02 15:57 | REP ---
INDICATION: SCREENING. COMPARISON: 07/01/2018 the latest prior a contrast-enhanced CT angiography of the chest TECHNIQUE: Axial noncontrast images from the thoracic inlet to the upper abdomen using low-dose lung screening technique (LDCT). As per the protocol only lung window images were sent to the read station for interpretation. FINDINGS: There is biapical pleuroparenchymal scarring status quo. There is an unchanged 6 mm size nodule in the right upper lobe. No new abnormal nodules, masses, or opacities have developed. There is mild stable bilateral upper and mid lung zone pleural thickening. There is an incidental calcified granuloma in the left upper lobe. IMPRESSION: Stable lung rads category 2 low-dose screening CT examination of the lungs. Follow-up as per the revised Fleischner society criteria. <Electronically signed by Didier Wagner > 07/02/21 [id number]
== END ==
LOC: M RAD 15:24
PROVIDERS: ATTEND Family Medicine
DX: Z12.2 Encounter for screening for malignant neoplasm of respiratory organs (principal); Z87.891 Personal history of nicotine dependence; R91.1 Solitary pulmonary nodule; J84.10 Pulmonary fibrosis, unspecified

== ENCOUNTER → 2021-07-02 | Outpatient (CLI) | payer OTHER | LOC: M PAIN 13:30 | PROVIDERS: ATTEND Anesthesiology | DX: M96.1 Postlaminectomy syndrome, not elsewhere classified (principal); M51.16 Intervertebral disc disorders with radiculopathy, lumbar region; E11.9 Type 2 diabetes mellitus without complications; J44.9 Chronic obstructive pulmonary disease, unspecified; K21.9 Gastro-esophageal reflux disease without esophagitis; M79.7 Fibromyalgia; Z96.651 Presence of right artificial knee joint; Z87.891 Personal history of nicotine dependence; Z88.6 Allergy status to analgesic agent; Z88.8 Allergy status to other drugs, medicaments and biological substances; Z91.018 Allergy to other foods; Z91.02 Food additives allergy status; Z79.84 Long term (current) use of oral hypoglycemic drugs; Z79.891 Long term (current) use of opiate analgesic; Z79.899 Other long term (current) drug therapy ==

== ENCOUNTER → 2021-07-10 | Outpatient (CLI) | payer OTHER ==
[~2021-07-10] MED LIST changes: -DOXY-443 PO; +DOXY1CAP62 PO
[2021-07-10 11:29] LABS: BLOOD UREA NITROGEN 18 MG/DL (7-18); CALCIUM LEVEL 8.6 MG/DL (8.8-10.2); CARBON DIOXIDE LEVEL 30 MEQ/L (21-32); CHLORIDE LEVEL 111 MEQ/L (98-107); CREATININE FOR GFR 1.06 MG/DL (0.70-1.30); GLOMERULAR FILTRATION RATE > 60.0 (>49); GLUCOSE, FASTING 112 MG/DL (70-100); MAGNESIUM LEVEL 1.9 MG/DL (1.8-2.4); POTASSIUM SERUM 4.1 MEQ/L (3.5-5.1); SODIUM LEVEL 141 MEQ/L (136-145)
== END ==
LOC: M LAB 10:25
PROVIDERS: ATTEND Physician Assistant
DX: I50.42 Chronic combined systolic (congestive) and diastolic (congestive) heart failure (principal)

== ENCOUNTER → 2021-08-07 | Outpatient (REF) | payer OTHER ==
[~2021-08-07] MED LIST changes: +DOXY-443 PO; -DOXY1CAP62 PO
== END ==
LOC: M SFHCPLAZ 16:52
PROVIDERS: ATTEND Physician Assistant
DX: L08.0 Pyoderma (principal)

== ENCOUNTER → 2021-10-02 | Outpatient (CLI) | payer OTHER ==
[~2021-10-02] MED LIST changes: -AMIO200T3 PO; +AMIO200T49 PO; -LISI-898 PO; +LISI5TAB11 PO
== END ==
LOC: M PAIN 13:45
PROVIDERS: ATTEND Nurse Practitioner Family
DX: M25.552 Pain in left hip (principal); I50.42 Chronic combined systolic (congestive) and diastolic (congestive) heart failure; I11.0 Hypertensive heart disease with heart failure; E11.9 Type 2 diabetes mellitus without complications; J44.9 Chronic obstructive pulmonary disease, unspecified; E78.5 Hyperlipidemia, unspecified; K21.9 Gastro-esophageal reflux disease without esophagitis; M54.50 Low back pain, unspecified; M25.561 Pain in right knee; R42 Dizziness and giddiness; M79.7 Fibromyalgia; E66.9 Obesity, unspecified; F10.11 Alcohol abuse, in remission; Z95.810 Presence of automatic (implantable) cardiac defibrillator; Z87.891 Personal history of nicotine dependence; Z68.31 Body mass index [BMI] 31.0-31.9, adult; Z88.6 Allergy status to analgesic agent; Z88.8 Allergy status to other drugs, medicaments and biological substances; Z91.018 Allergy to other foods; Z91.048 Other nonmedicinal substance allergy status; Z79.84 Long term (current) use of oral hypoglycemic drugs; Z79.891 Long term (current) use of opiate analgesic; Z79.899 Other long term (current) drug therapy

== ENCOUNTER → 2021-10-08 | Outpatient (CLI) | payer OTHER | LOC: M PLAIMG 13:12 | PROVIDERS: ATTEND Nurse Practitioner Family | DX: M25.552 Pain in left hip (principal); M16.12 Unilateral primary osteoarthritis, left hip ==

== ENCOUNTER → 2021-12-09 | Outpatient (CLI) | payer OTHER ==
[~2021-12-09] MED LIST changes: -D31000TA2 PO; +NASO50SP3; +VITA100093 PO
== END ==
LOC: M LAB 12:48
PROVIDERS: ATTEND Optometrist
DX: H53.2 Diplopia (principal)

== ENCOUNTER → 2021-12-25 | Outpatient (CLI) | payer OTHER | LOC: M LABSMTC 10:46 | PROVIDERS: ATTEND Anesthesiology | DX: Z01.812 Encounter for preprocedural laboratory examination (principal); Z20.822 Contact with and (suspected) exposure to COVID-19 ==

== ENCOUNTER → 2021-12-29 | Outpatient (CLI) | payer OTHER ==
[~2021-12-29] MED LIST changes: +BUPIVACAINE HCL 0.25% 30ML VIAL As Ordered ONE; +ISOVUE-M 300 61% 15ML VIAL As Ordered ONE; +LIDOCAINE 1% SDV 30ML VIAL As Ordered ONE; +dexameTHASONE 10MG/1ML VIAL PRES.FREE (J1100 PER 1MG) As Ordered ONE; +oxyCODONE 5MG TAB As Ordered ONE
== END ==
LOC: M PAIN 13:45
PROVIDERS: ATTEND Anesthesiology
DX: M51.16 Intervertebral disc disorders with radiculopathy, lumbar region (principal); E11.9 Type 2 diabetes mellitus without complications; G47.30 Sleep apnea, unspecified; J44.9 Chronic obstructive pulmonary disease, unspecified; M79.7 Fibromyalgia; K21.9 Gastro-esophageal reflux disease without esophagitis; Z95.0 Presence of cardiac pacemaker; Z88.6 Allergy status to analgesic agent; Z88.8 Allergy status to other drugs, medicaments and biological substances; Z91.018 Allergy to other foods; Z91.02 Food additives allergy status; Z79.84 Long term (current) use of oral hypoglycemic drugs; Z79.891 Long term (current) use of opiate analgesic; Z79.899 Other long term (current) drug therapy
CPT/HCPCS: 64483; 64484; J1100; Q9967

== ENCOUNTER → 2022-02-03 | Outpatient (CLI) | payer OTHER ==
[~2022-02-03] MED LIST changes: -BUPIVACAINE HCL 0.25% 30ML VIAL As Ordered ONE; -ISOVUE-M 300 61% 15ML VIAL As Ordered ONE; -LIDOCAINE 1% SDV 30ML VIAL As Ordered ONE; -dexameTHASONE 10MG/1ML VIAL PRES.FREE (J1100 PER 1MG) As Ordered ONE; -oxyCODONE 5MG TAB As Ordered ONE
== END ==
LOC: M PAIN 14:30
PROVIDERS: ATTEND Nurse Practitioner Family
DX: M51.16 Intervertebral disc disorders with radiculopathy, lumbar region (principal); G89.29 Other chronic pain; M96.1 Postlaminectomy syndrome, not elsewhere classified; E11.9 Type 2 diabetes mellitus without complications; G47.30 Sleep apnea, unspecified; J44.9 Chronic obstructive pulmonary disease, unspecified; K21.9 Gastro-esophageal reflux disease without esophagitis; M79.7 Fibromyalgia; Z95.0 Presence of cardiac pacemaker; Z96.651 Presence of right artificial knee joint; Z87.891 Personal history of nicotine dependence; Z88.6 Allergy status to analgesic agent; Z88.8 Allergy status to other drugs, medicaments and biological substances; Z91.02 Food additives allergy status; Z91.018 Allergy to other foods; Z79.82 Long term (current) use of aspirin; Z79.84 Long term (current) use of oral hypoglycemic drugs; Z79.891 Long term (current) use of opiate analgesic; Z79.899 Other long term (current) drug therapy

== ENCOUNTER → 2022-03-01 | Outpatient (CLI) | payer OTHER ==
[2022-03-01 12:38] LABS: ALBUMIN 3.4 GM/DL (3.2-5.2); BILIRUBIN,TOTAL 0.3 MG/DL (0.2-1.0); CALCIUM LEVEL 9.3 MG/DL (8.8-10.2); CREATININE FOR GFR 1.3 MG/DL (0.70-1.30); GLOMERULAR FILTRATION RATE 59.2 (>49); MAGNESIUM LEVEL 2.1 MG/DL (1.8-2.4); POTASSIUM SERUM 4.9 MEQ/L (3.5-5.1); TOTAL PROTEIN 6.2 GM/DL (6.4-8.2)
== END ==
LOC: M RAD 11:25
PROVIDERS: ATTEND Physician Assistant
DX: I47.2 Ventricular tachycardia (principal); Z95.0 Presence of cardiac pacemaker

== ENCOUNTER → 2022-03-01 | Outpatient (CLI) | payer OTHER | LOC: M PAIN 10:00 | PROVIDERS: ATTEND Nurse Practitioner Family | DX: M51.16 Intervertebral disc disorders with radiculopathy, lumbar region (principal); M96.1 Postlaminectomy syndrome, not elsewhere classified; E11.9 Type 2 diabetes mellitus without complications; J44.9 Chronic obstructive pulmonary disease, unspecified; K21.9 Gastro-esophageal reflux disease without esophagitis; M79.7 Fibromyalgia; Z95.0 Presence of cardiac pacemaker; Z87.891 Personal history of nicotine dependence; Z88.6 Allergy status to analgesic agent; Z88.8 Allergy status to other drugs, medicaments and biological substances; Z91.018 Allergy to other foods; Z91.02 Food additives allergy status; Z79.82 Long term (current) use of aspirin; Z79.84 Long term (current) use of oral hypoglycemic drugs; Z79.891 Long term (current) use of opiate analgesic; Z79.899 Other long term (current) drug therapy ==

== ENCOUNTER → 2022-05-13 | Outpatient (CLI) | payer OTHER | LOC: M PAIN 11:30 | PROVIDERS: ATTEND Nurse Practitioner Family | DX: M79.18 Myalgia, other site (principal); I50.40 Unspecified combined systolic (congestive) and diastolic (congestive) heart failure; I11.0 Hypertensive heart disease with heart failure; E11.9 Type 2 diabetes mellitus without complications; J44.9 Chronic obstructive pulmonary disease, unspecified; E78.5 Hyperlipidemia, unspecified; K21.9 Gastro-esophageal reflux disease without esophagitis; M54.50 Low back pain, unspecified; M25.561 Pain in right knee; R42 Dizziness and giddiness; M79.7 Fibromyalgia; E66.9 Obesity, unspecified; Z68.32 Body mass index [BMI] 32.0-32.9, adult; F10.11 Alcohol abuse, in remission; Z95.810 Presence of automatic (implantable) cardiac defibrillator; N50.3 Cyst of epididymis; Z87.891 Personal history of nicotine dependence; Z79.82 Long term (current) use of aspirin; Z79.899 Other long term (current) drug therapy; Z79.891 Long term (current) use of opiate analgesic; Z79.890 Hormone replacement therapy; Z88.6 Allergy status to analgesic agent; Z88.8 Allergy status to other drugs, medicaments and biological substances; Z91.018 Allergy to other foods; Z91.048 Other nonmedicinal substance allergy status ==

== ENCOUNTER → 2022-05-24 | Outpatient (CLI) | payer OTHER | LOC: M PAIN 13:30 | PROVIDERS: ATTEND Anesthesiology | DX: M51.16 Intervertebral disc disorders with radiculopathy, lumbar region (principal); I50.40 Unspecified combined systolic (congestive) and diastolic (congestive) heart failure; I11.0 Hypertensive heart disease with heart failure; E11.9 Type 2 diabetes mellitus without complications; J44.9 Chronic obstructive pulmonary disease, unspecified; E78.5 Hyperlipidemia, unspecified; K21.9 Gastro-esophageal reflux disease without esophagitis; M25.561 Pain in right knee; R42 Dizziness and giddiness; M79.7 Fibromyalgia; E66.9 Obesity, unspecified; F10.11 Alcohol abuse, in remission; Z95.810 Presence of automatic (implantable) cardiac defibrillator; Z87.891 Personal history of nicotine dependence; Z79.82 Long term (current) use of aspirin; Z79.890 Hormone replacement therapy; Z79.891 Long term (current) use of opiate analgesic; Z79.899 Other long term (current) drug therapy; Z88.6 Allergy status to analgesic agent; Z88.8 Allergy status to other drugs, medicaments and biological substances; Z91.018 Allergy to other foods; Z91.048 Other nonmedicinal substance allergy status; Z68.32 Body mass index [BMI] 32.0-32.9, adult ==

== ENCOUNTER → 2022-06-25 | Outpatient (CLI) | payer OTHER | LOC: M PAIN 08:45 | PROVIDERS: ATTEND Anesthesiology | DX: M96.1 Postlaminectomy syndrome, not elsewhere classified (principal); I50.42 Chronic combined systolic (congestive) and diastolic (congestive) heart failure; I11.0 Hypertensive heart disease with heart failure; E11.9 Type 2 diabetes mellitus without complications; J44.9 Chronic obstructive pulmonary disease, unspecified; E78.5 Hyperlipidemia, unspecified; K21.9 Gastro-esophageal reflux disease without esophagitis; M54.50 Low back pain, unspecified; M25.561 Pain in right knee; R42 Dizziness and giddiness; M79.7 Fibromyalgia; E66.9 Obesity, unspecified; F10.11 Alcohol abuse, in remission; Z95.810 Presence of automatic (implantable) cardiac defibrillator; Z87.891 Personal history of nicotine dependence; Z79.82 Long term (current) use of aspirin; Z79.899 Other long term (current) drug therapy; Z79.890 Hormone replacement therapy; Z79.891 Long term (current) use of opiate analgesic; Z88.6 Allergy status to analgesic agent; Z88.8 Allergy status to other drugs, medicaments and biological substances; Z91.048 Other nonmedicinal substance allergy status; Z91.018 Allergy to other foods; Z68.33 Body mass index [BMI] 33.0-33.9, adult ==

== ENCOUNTER → 2022-06-29 | Outpatient (CLI) | payer OTHER ==
[2022-06-29 10:54] LABS: HEMATOCRIT 36.1 % (42.0-52.0); HEMOGLOBIN 11.5 g/dl (13.5-17.5); MEAN CORPUSCULAR HEMOGLOBIN 29.8 pg (27.0-33.0); MEAN CORPUSCULAR HGB CONC 31.9 g/dl (32.0-36.5); MEAN CORPUSCULAR VOLUME 93.5 fl (80.0-96.0); PLATELET COUNT, AUTOMATED 204 10^3/uL (150-450); RED BLOOD COUNT 3.86 10^6/uL (4.30-6.10); WHITE BLOOD COUNT 7.4 10^3/uL (4.0-10.0)
[2022-06-29 11:35] LABS: MALB URINE SIEMENS < 5.0 MG/L; MAU/CREAT RATIO 4.5 MCG/MG (0.0-30.0)
[2022-06-29 11:38] LABS: ALBUMIN 3.2 GM/DL (3.2-5.2); ALT/SGPT 59 U/L (12-78); BILIRUBIN,TOTAL 0.4 MG/DL (0.2-1.0); BLOOD UREA NITROGEN 26 MG/DL (7-18); CALCIUM LEVEL 8.7 MG/DL (8.8-10.2); CARBON DIOXIDE LEVEL 29 MEQ/L (21-32); CHLORIDE LEVEL 110 MEQ/L (98-107); CHOLESTEROL LEVEL 124 MG/DL (<200); CHOLESTEROL RISK RATIO 2.296 (<5); CREATININE FOR GFR 1.12 MG/DL (0.70-1.30); GLOMERULAR FILTRATION RATE > 60.0 (>49); GLUCOSE, FASTING 102 MG/DL (70-100); HDL CHOLESTEROL 54 MG/DL (>40); LDL CHOLESTEROL 53 MG/DL (<100); NON-HDL-C 70 MG/DL; POTASSIUM SERUM 4.4 MEQ/L (3.5-5.1); SODIUM LEVEL 140 MEQ/L (136-145); TOTAL PROTEIN 5.5 GM/DL (6.4-8.2); TRIGLYCERIDES LEVEL 85 MG/DL (<150)
== END ==
LOC: M LAB 09:49
PROVIDERS: ATTEND Family Medicine
DX: I50.42 Chronic combined systolic (congestive) and diastolic (congestive) heart failure (principal); Z82.79 Family history of other congenital malformations, deformations and chromosomal abnormalities; E11.9 Type 2 diabetes mellitus without complications; E78.5 Hyperlipidemia, unspecified; N40.1 Benign prostatic hyperplasia with lower urinary tract symptoms; E03.9 Hypothyroidism, unspecified

== ENCOUNTER → 2022-07-09 | Outpatient (CLI) | payer OTHER ==
[2022-07-09 12:43] LABS: HEMATOCRIT 34.6 % (42.0-52.0); HEMOGLOBIN 11.3 g/dl (13.5-17.5); MEAN CORPUSCULAR HEMOGLOBIN 30.3 pg (27.0-33.0); MEAN CORPUSCULAR HGB CONC 32.7 g/dl (32.0-36.5); MEAN CORPUSCULAR VOLUME 92.8 fl (80.0-96.0); PLATELET COUNT, AUTOMATED 222 10^3/uL (150-450); RED BLOOD COUNT 3.73 10^6/uL (4.30-6.10); WHITE BLOOD COUNT 8.7 10^3/uL (4.0-10.0)
[2022-07-09 13:48] LABS: FREE T4 1.19 NG/DL (0.76-1.46); PERCENT SATURATION 22.1 % (19.7-50.0); THYROID STIMULATING HORMONE 4.13 uIU/ML (0.358-3.740)
== END ==
LOC: M LAB 11:53
PROVIDERS: ATTEND Family Medicine
DX: D64.9 Anemia, unspecified (principal)

== ENCOUNTER 2022-07-29 12:50 | Outpatient (RCR) | payer OTHER | END 2022-08-25 | LOC: M PT 12:50 | PROVIDERS: ATTEND Orthopaedic Surgery | DX: M70.62 Trochanteric bursitis, left hip (principal); M16.12 Unilateral primary osteoarthritis, left hip ==

== ENCOUNTER → 2022-08-08 | Outpatient (CLI) | payer OTHER | LOC: M LABSMTC 10:38 | PROVIDERS: ATTEND Anesthesiology | DX: Z01.812 Encounter for preprocedural laboratory examination (principal); Z20.822 Contact with and (suspected) exposure to COVID-19 ==

== ENCOUNTER → 2022-08-12 | Outpatient (CLI) | payer OTHER ==
[~2022-08-12] MED LIST changes: +BUPIVACAINE HCL 0.25% 30ML VIAL As Ordered ONE; +ISOVUE-M 300 61% 15ML VIAL As Ordered ONE; +LIDOCAINE 1% SDV 30ML VIAL As Ordered ONE; +dexameTHASONE 10MG/1ML VIAL PRES.FREE (J1100 PER 1MG) As Ordered ONE; +oxyCODONE 5MG TAB As Ordered ONE
== END ==
LOC: M PAIN 11:00
PROVIDERS: ATTEND Anesthesiology
DX: M96.1 Postlaminectomy syndrome, not elsewhere classified (principal); I50.42 Chronic combined systolic (congestive) and diastolic (congestive) heart failure; I11.0 Hypertensive heart disease with heart failure; E11.9 Type 2 diabetes mellitus without complications; E78.5 Hyperlipidemia, unspecified; K21.9 Gastro-esophageal reflux disease without esophagitis; M54.50 Low back pain, unspecified; M25.561 Pain in right knee; R42 Dizziness and giddiness; M79.7 Fibromyalgia; E66.9 Obesity, unspecified; F10.11 Alcohol abuse, in remission; Z95.0 Presence of cardiac pacemaker; Z87.891 Personal history of nicotine dependence; Z79.82 Long term (current) use of aspirin; Z79.899 Other long term (current) drug therapy; Z79.84 Long term (current) use of oral hypoglycemic drugs; Z79.890 Hormone replacement therapy; Z79.891 Long term (current) use of opiate analgesic; Z88.6 Allergy status to analgesic agent; Z88.8 Allergy status to other drugs, medicaments and biological substances; Z91.018 Allergy to other foods; Z91.048 Other nonmedicinal substance allergy status
CPT/HCPCS: 64483; 64484; J1100

== ENCOUNTER → 2022-09-07 | Outpatient (CLI) | payer OTHER ==
[~2022-09-07] MED LIST changes: -BUPIVACAINE HCL 0.25% 30ML VIAL As Ordered ONE; -ISOVUE-M 300 61% 15ML VIAL As Ordered ONE; -LIDOCAINE 1% SDV 30ML VIAL As Ordered ONE; -dexameTHASONE 10MG/1ML VIAL PRES.FREE (J1100 PER 1MG) As Ordered ONE; -oxyCODONE 5MG TAB As Ordered ONE
== END ==
LOC: M PAIN 14:30
PROVIDERS: ATTEND Nurse Practitioner Family
DX: M96.1 Postlaminectomy syndrome, not elsewhere classified (principal); G89.29 Other chronic pain; E11.9 Type 2 diabetes mellitus without complications; I10 Essential (primary) hypertension; J44.9 Chronic obstructive pulmonary disease, unspecified; K21.9 Gastro-esophageal reflux disease without esophagitis; M79.7 Fibromyalgia; Z95.810 Presence of automatic (implantable) cardiac defibrillator; Z87.891 Personal history of nicotine dependence; Z88.6 Allergy status to analgesic agent; Z88.8 Allergy status to other drugs, medicaments and biological substances; Z91.018 Allergy to other foods; Z91.02 Food additives allergy status; Z79.82 Long term (current) use of aspirin; Z79.84 Long term (current) use of oral hypoglycemic drugs; Z79.891 Long term (current) use of opiate analgesic; Z79.899 Other long term (current) drug therapy

== ENCOUNTER → 2022-10-26 | Outpatient (CLI) | payer OTHER ==
[2022-10-26 14:40] LABS: ALBUMIN 3.4 G/DL (3.2-5.2); ALKALINE PHOSPHATASE 87 U/L (46-116); ALT/SGPT 48 U/L (7.0-40); AST/SGOT 27 U/L (<34); BILIRUBIN,TOTAL 0.4 MG/DL (0.3-1.2); BLOOD UREA NITROGEN 23 MG/DL (9-23); CARBON DIOXIDE LEVEL 28 MMOL/L (20-31); CHLORIDE LEVEL 106 MMOL/L (98-107); CREATININE FOR GFR 1.06 MG/DL (0.70-1.30); GLOMERULAR FILTRATION RATE > 60.0 (>49); GLUCOSE, FASTING 82 MG/DL (74-106); MAGNESIUM LEVEL 1.8 MG/DL (1.8-2.4); POTASSIUM SERUM 4.4 MMOL/L (3.5-5.1); SODIUM LEVEL 140 MMOL/L (136-145); TOTAL PROTEIN 6.3 G/DL (5.7-8.2)
== END ==
LOC: M LAB 13:39
PROVIDERS: ATTEND Physician Assistant
DX: I50.42 Chronic combined systolic (congestive) and diastolic (congestive) heart failure (principal); I47.20 Ventricular tachycardia, unspecified

== ENCOUNTER → 2022-11-03 | Outpatient (CLI) | payer OTHER ==
[~2022-11-03] MED LIST changes: +ISOVUE-300 61% 100ML VIAL As Ordered ONE; +LIDOCAINE 1% MDV 20ML VIAL As Ordered ONE
== END ==
LOC: M RAD 10:24
PROVIDERS: ATTEND Physician Assistant
DX: M75.32 Calcific tendinitis of left shoulder (principal)

== ENCOUNTER → 2022-11-10 | Outpatient (CLI) | payer OTHER | LOC: M RAD 08:24 | PROVIDERS: ATTEND Physician Assistant | DX: M75.41 Impingement syndrome of right shoulder (principal) ==

== ENCOUNTER → 2022-11-15 | Outpatient (CLI) | payer OTHER ==
[~2022-11-15] MED LIST changes: -ISOVUE-300 61% 100ML VIAL As Ordered ONE; -LIDOCAINE 1% MDV 20ML VIAL As Ordered ONE
== END ==
LOC: M PAIN 11:00
PROVIDERS: ATTEND Nurse Practitioner Family
DX: M79.10 Myalgia, unspecified site (principal); M54.6 Pain in thoracic spine; G89.29 Other chronic pain; E11.9 Type 2 diabetes mellitus without complications; I10 Essential (primary) hypertension; J44.9 Chronic obstructive pulmonary disease, unspecified; K21.9 Gastro-esophageal reflux disease without esophagitis; Z95.810 Presence of automatic (implantable) cardiac defibrillator; Z87.891 Personal history of nicotine dependence; Z88.6 Allergy status to analgesic agent; Z88.8 Allergy status to other drugs, medicaments and biological substances; Z91.018 Allergy to other foods; Z91.02 Food additives allergy status; Z79.82 Long term (current) use of aspirin; Z79.84 Long term (current) use of oral hypoglycemic drugs; Z79.891 Long term (current) use of opiate analgesic; Z79.899 Other long term (current) drug therapy

== ENCOUNTER → 2022-12-13 | Outpatient (CLI) | payer OTHER | LOC: M PAIN 09:45 | PROVIDERS: ATTEND Nurse Practitioner Family | DX: M96.1 Postlaminectomy syndrome, not elsewhere classified (principal); I50.42 Chronic combined systolic (congestive) and diastolic (congestive) heart failure; I11.0 Hypertensive heart disease with heart failure; E11.9 Type 2 diabetes mellitus without complications; J44.9 Chronic obstructive pulmonary disease, unspecified; E78.5 Hyperlipidemia, unspecified; K21.9 Gastro-esophageal reflux disease without esophagitis; M54.50 Low back pain, unspecified; M25.561 Pain in right knee; R42 Dizziness and giddiness; M79.7 Fibromyalgia; E66.9 Obesity, unspecified; Z95.810 Presence of automatic (implantable) cardiac defibrillator; Z87.891 Personal history of nicotine dependence; Z79.82 Long term (current) use of aspirin; Z79.84 Long term (current) use of oral hypoglycemic drugs; Z79.890 Hormone replacement therapy; Z79.891 Long term (current) use of opiate analgesic; Z79.899 Other long term (current) drug therapy; Z88.6 Allergy status to analgesic agent; Z88.8 Allergy status to other drugs, medicaments and biological substances; Z91.018 Allergy to other foods; Z91.048 Other nonmedicinal substance allergy status; Z68.33 Body mass index [BMI] 33.0-33.9, adult ==

== ENCOUNTER → 2022-12-20 | Outpatient (CLI) | payer OTHER | LOC: M PAIN 11:15 | PROVIDERS: ATTEND Nurse Practitioner Family | DX: M79.18 Myalgia, other site (principal); I11.0 Hypertensive heart disease with heart failure; I50.42 Chronic combined systolic (congestive) and diastolic (congestive) heart failure; E11.9 Type 2 diabetes mellitus without complications; J44.9 Chronic obstructive pulmonary disease, unspecified; E78.5 Hyperlipidemia, unspecified; K21.9 Gastro-esophageal reflux disease without esophagitis; M54.50 Low back pain, unspecified; M25.561 Pain in right knee; R42 Dizziness and giddiness; M79.7 Fibromyalgia; E66.9 Obesity, unspecified; Z95.0 Presence of cardiac pacemaker; Z87.891 Personal history of nicotine dependence; Z79.82 Long term (current) use of aspirin; Z79.891 Long term (current) use of opiate analgesic; Z79.899 Other long term (current) drug therapy; Z88.6 Allergy status to analgesic agent; Z88.8 Allergy status to other drugs, medicaments and biological substances; Z91.048 Other nonmedicinal substance allergy status; Z91.018 Allergy to other foods; Z68.34 Body mass index [BMI] 34.0-34.9, adult ==

== ENCOUNTER → 2022-12-31 | Outpatient (CLI) | payer OTHER ==
[2022-12-31 15:32] LABS: HEMATOCRIT 39.6 % (42.0-52.0); HEMOGLOBIN 12.2 g/dl (13.5-17.5); MEAN CORPUSCULAR HEMOGLOBIN 28.3 pg (27.0-33.0); MEAN CORPUSCULAR HGB CONC 30.8 g/dl (32.0-36.5); MEAN CORPUSCULAR VOLUME 91.9 fl (80.0-96.0); PLATELET COUNT, AUTOMATED 243 10^3/uL (150-450); RED BLOOD COUNT 4.31 10^6/uL (4.30-6.10); WHITE BLOOD COUNT 6.9 10^3/uL (4.0-10.0)
[2022-12-31 15:43] LABS: LIPASE 21 U/L (12-53)
[2022-12-31 15:45] LABS: AMYLASE 25 U/L (30-118)
[2022-12-31 15:46] LABS: ALBUMIN 3.5 G/DL (3.2-5.2); ALKALINE PHOSPHATASE 89 U/L (46-116); ALT/SGPT 62 U/L (7.0-40); AST/SGOT 34 U/L (<34); BILIRUBIN,TOTAL 0.3 MG/DL (0.3-1.2); BLOOD UREA NITROGEN 21 MG/DL (9-23); CALCIUM LEVEL 8.7 MG/DL (8.3-10.6); CARBON DIOXIDE LEVEL 28 MMOL/L (20-31); CHLORIDE LEVEL 110 MMOL/L (98-107); CREATININE FOR GFR 1.03 MG/DL (0.70-1.30); GLOMERULAR FILTRATION RATE > 60.0 (>49); GLUCOSE, FASTING 100 MG/DL (74-106); POTASSIUM SERUM 4.4 MMOL/L (3.5-5.1); SODIUM LEVEL 142 MMOL/L (136-145); TOTAL PROTEIN 5.9 G/DL (5.7-8.2)
== END ==
LOC: M LAB 14:44
PROVIDERS: ATTEND Physician Assistant Medical
DX: D64.9 Anemia, unspecified (principal); R10.13 Epigastric pain

== ENCOUNTER → 2022-12-31 | Outpatient (CLI) | payer OTHER ==
[2022-12-31 15:33] LABS: HEMOGLOBIN 12.2 g/dl (13.5-17.5); MEAN CORPUSCULAR HEMOGLOBIN 28.7 pg (27.0-33.0); MEAN CORPUSCULAR HGB CONC 31.3 g/dl (32.0-36.5); MEAN CORPUSCULAR VOLUME 91.8 fl (80.0-96.0); PLATELET COUNT, AUTOMATED 241 10^3/uL (150-450); RED BLOOD COUNT 4.25 10^6/uL (4.30-6.10); WHITE BLOOD COUNT 7.1 10^3/uL (4.0-10.0)
[2022-12-31 15:50] LABS: FREE T4 1.65 NG/DL (0.89-1.76); THYROID STIMULATING HORMONE 0.528 uIU/ML (0.55-4.78)
== END ==
LOC: M LAB 14:33
PROVIDERS: ATTEND Family Medicine
DX: D64.9 Anemia, unspecified (principal); E11.9 Type 2 diabetes mellitus without complications; E03.9 Hypothyroidism, unspecified

== ENCOUNTER → 2023-01-11 | Outpatient (CLI) | payer OTHER | LOC: M PAIN 15:15 | PROVIDERS: ATTEND Nurse Practitioner Family | DX: M51.16 Intervertebral disc disorders with radiculopathy, lumbar region (principal); G89.29 Other chronic pain; E11.9 Type 2 diabetes mellitus without complications; I10 Essential (primary) hypertension; J44.9 Chronic obstructive pulmonary disease, unspecified; K21.9 Gastro-esophageal reflux disease without esophagitis; M79.7 Fibromyalgia; Z95.0 Presence of cardiac pacemaker; Z87.891 Personal history of nicotine dependence; Z88.6 Allergy status to analgesic agent; Z88.8 Allergy status to other drugs, medicaments and biological substances; Z91.018 Allergy to other foods; Z91.02 Food additives allergy status; Z79.82 Long term (current) use of aspirin; Z79.84 Long term (current) use of oral hypoglycemic drugs; Z79.891 Long term (current) use of opiate analgesic; Z79.899 Other long term (current) drug therapy ==

== ENCOUNTER → 2023-01-14 | Outpatient (CLI) | payer MEDICARE | LOC: M RAD 16:07 | PROVIDERS: ATTEND Family Medicine | DX: M79.672 Pain in left foot (principal); F17.210 Nicotine dependence, cigarettes, uncomplicated ==

== ENCOUNTER → 2023-02-28 | Outpatient (CLI) | payer OTHER ==
[~2023-02-28] MED LIST changes: +BISO5TAB14 PO; +GABA-1171 PO; +PERC10TA26 PO; +SYNT75TA PO; +SYST1SOL OU; +VITMTA PO
== END ==
LOC: M PAIN 11:15
PROVIDERS: ATTEND Nurse Practitioner Family
DX: M51.16 Intervertebral disc disorders with radiculopathy, lumbar region (principal); G89.29 Other chronic pain; E11.9 Type 2 diabetes mellitus without complications; I10 Essential (primary) hypertension; J44.9 Chronic obstructive pulmonary disease, unspecified; K21.9 Gastro-esophageal reflux disease without esophagitis; M79.7 Fibromyalgia; Z95.810 Presence of automatic (implantable) cardiac defibrillator; Z96.651 Presence of right artificial knee joint; Z87.891 Personal history of nicotine dependence; Z88.6 Allergy status to analgesic agent; Z88.8 Allergy status to other drugs, medicaments and biological substances; Z91.018 Allergy to other foods; Z91.02 Food additives allergy status; Z79.82 Long term (current) use of aspirin; Z79.84 Long term (current) use of oral hypoglycemic drugs; Z79.899 Other long term (current) drug therapy

== ENCOUNTER → 2023-03-01 | Outpatient (CLI) | payer MEDICARE | LOC: M RAD 12:57 | PROVIDERS: ATTEND Family Medicine | DX: Z12.2 Encounter for screening for malignant neoplasm of respiratory organs (principal); F17.210 Nicotine dependence, cigarettes, uncomplicated; R91.1 Solitary pulmonary nodule; M79.672 Pain in left foot; I47.20 Ventricular tachycardia, unspecified ==

== ENCOUNTER → 2023-03-01 | Outpatient (CLI) | payer MEDICARE | LOC: M RAD 13:04 | PROVIDERS: ATTEND Physician Assistant | DX: I47.20 Ventricular tachycardia, unspecified (principal) ==

== ENCOUNTER → 2023-03-04 | Outpatient (CLI) | payer OTHER ==
[~2023-03-04] MED LIST changes: +ISOVUE-M 300 61% 15ML VIAL As Ordered ONE; +LIDOCAINE 1% SDV 30ML VIAL As Ordered ONE; +dexAMETHasone 10MG/1ML VIAL PRES.FREE As Ordered ONE; +oxyCODONE 5MG TAB As Ordered ONE
== END ==
LOC: M PAIN 12:00
PROVIDERS: ATTEND Anesthesiology
DX: M96.1 Postlaminectomy syndrome, not elsewhere classified (principal); G89.29 Other chronic pain; E11.9 Type 2 diabetes mellitus without complications; I10 Essential (primary) hypertension; J44.9 Chronic obstructive pulmonary disease, unspecified; K21.9 Gastro-esophageal reflux disease without esophagitis; M79.7 Fibromyalgia; Z88.6 Allergy status to analgesic agent; Z88.8 Allergy status to other drugs, medicaments and biological substances; Z91.018 Allergy to other foods; Z91.02 Food additives allergy status; Z79.82 Long term (current) use of aspirin; Z79.84 Long term (current) use of oral hypoglycemic drugs; Z79.899 Other long term (current) drug therapy
CPT/HCPCS: 64483; 64484; J1100; Q9967; S0020

== ENCOUNTER 2023-03-08 10:51 | Day surgery (SDC) | payer MEDICARE ==
[~2023-03-08] VITALS: Ht 182.9 cm; Wt 247.8 kg
[~2023-03-08 10:51] MED LIST changes: -ISOVUE-M 300 61% 15ML VIAL As Ordered ONE; -LIDOCAINE 1% SDV 30ML VIAL As Ordered ONE; -dexAMETHasone 10MG/1ML VIAL PRES.FREE As Ordered ONE; -oxyCODONE 5MG TAB As Ordered ONE
[2023-03-08] MEDS: NS 1,000 ML IV ONE (12:26)
[2023-03-08 12:36] VITALS: TEMP 96.1
[2023-03-08] MEDS ORDERED: propofoL 200 MG/20 ML VIAL As Ordered ONE ×2 (13:16→13:30)
[2023-03-08] MEDS ORDERED: LIDOCAINE 2% 100MG/5ML SDV (FOR ANES.) As Ordered ONE (13:16)
[2023-03-08 14:15] VITALS: BP 161/72; O2SAT 94
== END 2023-03-08 14:23 | disposition home or self-care (01) ==
LOC: M OPP 10:51
PROVIDERS: ATTEND Internal Medicine Gastroenterology
DX: D62 Acute posthemorrhagic anemia (principal); K57.30 Diverticulosis of large intestine without perforation or abscess without bleeding; K64.8 Other hemorrhoids; K25.9 Gastric ulcer, unspecified as acute or chronic, without hemorrhage or perforation; K92.0 Hematemesis

== ENCOUNTER → 2023-04-25 | Outpatient (CLI) | payer OTHER, MEDICARE ==
[~2023-04-25] MED LIST changes: -GABA-283 PO; +GABA-284 PO
== END ==
LOC: M PAIN 15:00
PROVIDERS: ATTEND Anesthesiology
DX: M96.1 Postlaminectomy syndrome, not elsewhere classified (principal); M51.16 Intervertebral disc disorders with radiculopathy, lumbar region; G89.29 Other chronic pain; E11.9 Type 2 diabetes mellitus without complications; I10 Essential (primary) hypertension; J44.9 Chronic obstructive pulmonary disease, unspecified; K21.9 Gastro-esophageal reflux disease without esophagitis; M79.7 Fibromyalgia; Z95.0 Presence of cardiac pacemaker; Z96.651 Presence of right artificial knee joint; Z87.891 Personal history of nicotine dependence; Z88.6 Allergy status to analgesic agent; Z88.8 Allergy status to other drugs, medicaments and biological substances; Z91.018 Allergy to other foods; Z91.02 Food additives allergy status; Z79.82 Long term (current) use of aspirin; Z79.84 Long term (current) use of oral hypoglycemic drugs; Z79.899 Other long term (current) drug therapy

== ENCOUNTER 2023-06-09 14:34 | Emergency (ER) | payer MEDICARE, OTHER ==
[~2023-06-09] VITALS: Ht 182.9 cm; Wt 114.2 kg
[2023-06-09] MEDS ORDERED: CEPH500C (14:49)
[2023-06-09] MEDS ORDERED: MORPHINE 4 MG/ML 1ML VIAL IV ONE (16:00)
[2023-06-09 16:19] VITALS: BP 145/72; TEMP 97.4; O2SAT 97
[2023-06-09 16:30] LABS: BASO # 0.1 10^3/uL (0.0-0.2); BASO % 0.9 % (0.0-1.0); EOS # 0.3 10^3/uL (0.0-0.5); EOS % 3.9 % (0.0-3.0); HEMATOCRIT 38.1 % (42.0-52.0); HEMOGLOBIN 11.9 g/dl (13.5-17.5); LYMPH # 1.4 10^3/uL (1.5-5.0); MEAN CORPUSCULAR HEMOGLOBIN 28.9 pg (27.0-33.0); MEAN CORPUSCULAR HGB CONC 31.2 g/dl (32.0-36.5); MEAN CORPUSCULAR VOLUME 92.5 fl (80.0-96.0); MONO # 0.7 10^3/uL (0.0-0.8); MONO % 10.9 % (2.0-8.0); NEUTROPHILS # 4.2 10^3/uL (1.5-8.5); NEUTROPHILS % 62.6 % (36.0-66.0); PLATELET COUNT, AUTOMATED 235 10^3/uL (150-450); RED BLOOD COUNT 4.12 10^6/uL (4.30-6.10); WHITE BLOOD COUNT 6.7 10^3/uL (4.0-10.0)
[2023-06-09 16:51] LABS: LIPASE 24 U/L (12-53)
[2023-06-09 16:53] LABS: ALBUMIN 3.4 G/DL (3.2-5.2); ALKALINE PHOSPHATASE 83 U/L (46-116); ALT/SGPT 46 U/L (7.0-40); AST/SGOT 27 U/L (<34); BILIRUBIN,DIRECT < 0.1 MG/DL (<0.4); BILIRUBIN,TOTAL 0.2 MG/DL (0.3-1.2); BLOOD UREA NITROGEN 19 MG/DL (9-23); CALCIUM LEVEL 8.6 MG/DL (8.3-10.6); CARBON DIOXIDE LEVEL 27 MMOL/L (20-31); CHLORIDE LEVEL 110 MMOL/L (98-107); CREATININE FOR GFR 1.23 MG/DL (0.70-1.30); GLOMERULAR FILTRATION RATE > 60.0 (>49); GLUCOSE, FASTING 92 MG/DL (74-106); POTASSIUM SERUM 4.8 MMOL/L (3.5-5.1); SODIUM LEVEL 143 MMOL/L (136-145); TOTAL PROTEIN 5.8 G/DL (5.7-8.2)
[2023-06-09] MEDS ORDERED: ISOVUE-370 76% 100ML VIAL As Ordered ONE (16:56)
[2023-06-09 17:01] LABS: AMPHETAMINES LEVEL URINE NEGATIVE (NEGATIVE); BARBITURATES URINE NEGATIVE (NEGATIVE); BENZODIAZEPINES URINE NEGATIVE (NEGATIVE); COCAINE METABOLITE URINE NEGATIVE (NEGATIVE); METHADONE URINE NEGATIVE (NEGATIVE); PHENCYCLIDINE URINE NEGATIVE (NEGATIVE)
[2023-06-09 17:02] LABS: CANNABINOIDS URINE NEGATIVE (NEGATIVE)
[2023-06-09 17:08] LABS: OPIATES URINE POSITIVE (NEGATIVE)
== END 2023-06-09 18:38 | disposition home or self-care (01) ==
LOC: M ED 14:34
DX: R10.31 Right lower quadrant pain (principal); M54.50 Low back pain, unspecified; F41.9 Anxiety disorder, unspecified; E11.9 Type 2 diabetes mellitus without complications; I10 Essential (primary) hypertension; E78.5 Hyperlipidemia, unspecified; H81.4 Vertigo of central origin; Z88.6 Allergy status to analgesic agent; Z88.8 Allergy status to other drugs, medicaments and biological substances; Z91.048 Other nonmedicinal substance allergy status; Z91.018 Allergy to other foods; Z79.52 Long term (current) use of systemic steroids; Z79.82 Long term (current) use of aspirin; Z79.02 Long term (current) use of antithrombotics/antiplatelets; Z79.4 Long term (current) use of insulin; Z79.811 Long term (current) use of aromatase inhibitors; Z79.899 Other long term (current) drug therapy
CPT/HCPCS: 71260; 74177; 80048; 80076; 80307; 81001; 83690; 85025; 96374; 99283; Q9967

== ENCOUNTER → 2023-07-12 | Outpatient (CLI) | payer MEDICARE, OTHER ==
[~2023-07-12] MED LIST changes: +CEPH500C; +ISOVUE-300 61% 100ML VIAL As Ordered ONE; +LIDOCAINE 1% MDV 20ML VIAL As Ordered ONE; -OXYB5TAB10 PO; +OXYB5TAB11 PO; +methylPREDNISolone SUSP 40MG/ML 1ML VIAL (DEPO MEDROL) As Ordered ONE
== END ==
LOC: M RAD 14:52
PROVIDERS: ATTEND Physician Assistant
DX: M25.512 Pain in left shoulder (principal)
CPT/HCPCS: 20610; 77002; J1030; Q9967

== ENCOUNTER → 2023-07-12 | Outpatient (CLI) | payer MEDICARE ==
[~2023-07-12] MED LIST changes: -ISOVUE-300 61% 100ML VIAL As Ordered ONE; -LIDOCAINE 1% MDV 20ML VIAL As Ordered ONE; -methylPREDNISolone SUSP 40MG/ML 1ML VIAL (DEPO MEDROL) As Ordered ONE
[2023-07-12 13:41] LABS: HEMATOCRIT 36.8 % (42.0-52.0); HEMOGLOBIN 11.8 g/dl (13.5-17.5); MEAN CORPUSCULAR HEMOGLOBIN 29.4 pg (27.0-33.0); MEAN CORPUSCULAR HGB CONC 32.1 g/dl (32.0-36.5); MEAN CORPUSCULAR VOLUME 91.8 fl (80.0-96.0); PLATELET COUNT, AUTOMATED 235 10^3/uL (150-450); RED BLOOD COUNT 4.01 10^6/uL (4.30-6.10); WHITE BLOOD COUNT 7.5 10^3/uL (4.0-10.0)
== END ==
LOC: M LAB 13:06
PROVIDERS: ATTEND Physician Assistant Medical
DX: D64.9 Anemia, unspecified (principal)

== ENCOUNTER → 2023-07-14 | Outpatient (CLI) | payer MEDICARE | LOC: M LAB 12:55 | PROVIDERS: ATTEND Physician Assistant | DX: I50.42 Chronic combined systolic (congestive) and diastolic (congestive) heart failure (principal); I42.0 Dilated cardiomyopathy; I47.20 Ventricular tachycardia, unspecified ==

== ENCOUNTER → 2023-07-27 | Outpatient (CLI) | payer OTHER, MEDICARE | LOC: M PAIN 10:30 | PROVIDERS: ATTEND Anesthesiology | DX: M51.16 Intervertebral disc disorders with radiculopathy, lumbar region (principal); M96.1 Postlaminectomy syndrome, not elsewhere classified; G89.29 Other chronic pain; Z80.1 Family history of malignant neoplasm of trachea, bronchus and lung; Z80.51 Family history of malignant neoplasm of kidney; Z80.8 Family history of malignant neoplasm of other organs or systems; Z87.891 Personal history of nicotine dependence; Z88.6 Allergy status to analgesic agent; Z88.8 Allergy status to other drugs, medicaments and biological substances; Z91.018 Allergy to other foods; Z91.02 Food additives allergy status; Z79.82 Long term (current) use of aspirin; Z79.84 Long term (current) use of oral hypoglycemic drugs; Z79.899 Other long term (current) drug therapy ==

== ENCOUNTER 2023-07-29 13:18 | Day surgery (SDC) | payer MEDICARE ==
[~2023-07-29] VITALS: Ht 182.9 cm; Wt 129.0 kg
[~2023-07-29 13:18] MED LIST changes: +NS 1,000 ML IV ONE
[2023-07-29] MEDS ORDERED: propofoL 200 MG/20 ML VIAL As Ordered ONE ×2 (14:17→14:40)
[2023-07-29] MEDS ORDERED: LIDOCAINE 2% 100MG/5ML SDV (FOR ANES.) As Ordered ONE (14:17)
[2023-07-29] MEDS ORDERED: fentaNYL 100 MCG/2 ML INJECTION As Ordered ONE (14:17)
[2023-07-29] MEDS ORDERED: ePHEDrine SULFATE 25 MG/5 ML(5MG/ML) SYRINGE As Ordered ONE (14:41)
[2023-07-29 14:48] VITALS: TEMP 98.9
[2023-07-29 15:07] VITALS: BP 146/67; O2SAT 96
== END 2023-07-29 15:14 | disposition home or self-care (01) ==
LOC: M OPP 13:18
PROVIDERS: ATTEND Internal Medicine Gastroenterology
DX: K25.7 Chronic gastric ulcer without hemorrhage or perforation (principal); Z09 Encounter for follow-up examination after completed treatment for conditions other than malignant neoplasm; K29.50 Unspecified chronic gastritis without bleeding; E11.9 Type 2 diabetes mellitus without complications; G47.30 Sleep apnea, unspecified; Z86.74 Personal history of sudden cardiac arrest; Z87.891 Personal history of nicotine dependence; Z79.02 Long term (current) use of antithrombotics/antiplatelets; Z79.51 Long term (current) use of inhaled steroids; Z79.82 Long term (current) use of aspirin; Z79.84 Long term (current) use of oral hypoglycemic drugs; Z79.891 Long term (current) use of opiate analgesic; Z79.899 Other long term (current) drug therapy; Z88.6 Allergy status to analgesic agent; Z88.8 Allergy status to other drugs, medicaments and biological substances; Z91.018 Allergy to other foods; Z91.048 Other nonmedicinal substance allergy status
CPT/HCPCS: 43239; 88305; J3010

== ENCOUNTER → 2023-08-22 | Outpatient (CLI) | payer OTHER, MEDICARE ==
[~2023-08-22] MED LIST changes: -NS 1,000 ML IV ONE
== END ==
LOC: M PLAIMG 08:53
PROVIDERS: ATTEND Anesthesiology
DX: M51.16 Intervertebral disc disorders with radiculopathy, lumbar region (principal); Z98.1 Arthrodesis status

== ENCOUNTER → 2023-08-26 | Outpatient (CLI) | payer OTHER, MEDICARE | LOC: M PAIN 10:00 | PROVIDERS: ATTEND Nurse Practitioner Family | DX: M79.10 Myalgia, unspecified site (principal); G89.29 Other chronic pain; Z95.0 Presence of cardiac pacemaker; Z80.1 Family history of malignant neoplasm of trachea, bronchus and lung; Z80.51 Family history of malignant neoplasm of kidney; Z80.8 Family history of malignant neoplasm of other organs or systems; Z87.891 Personal history of nicotine dependence; Z88.6 Allergy status to analgesic agent; Z88.8 Allergy status to other drugs, medicaments and biological substances; Z91.018 Allergy to other foods; Z91.02 Food additives allergy status; Z79.82 Long term (current) use of aspirin; Z79.84 Long term (current) use of oral hypoglycemic drugs; Z79.899 Other long term (current) drug therapy ==

== ENCOUNTER → 2023-09-02 | Outpatient (CLI) | payer OTHER, MEDICARE | LOC: M PAIN 15:00 | PROVIDERS: ATTEND Nurse Practitioner Family | DX: M51.16 Intervertebral disc disorders with radiculopathy, lumbar region (principal); G89.29 Other chronic pain; Z80.1 Family history of malignant neoplasm of trachea, bronchus and lung; Z80.8 Family history of malignant neoplasm of other organs or systems; Z80.49 Family history of malignant neoplasm of other genital organs; Z87.891 Personal history of nicotine dependence; Z88.6 Allergy status to analgesic agent; Z88.8 Allergy status to other drugs, medicaments and biological substances; Z91.018 Allergy to other foods; Z91.02 Food additives allergy status; Z79.82 Long term (current) use of aspirin; Z79.84 Long term (current) use of oral hypoglycemic drugs; Z79.899 Other long term (current) drug therapy ==

== ENCOUNTER → 2023-09-05 | Outpatient (CLI) | payer MEDICARE ==
[2023-09-05 10:10] VITALS: BP 190/90; TEMP 97.6; O2SAT 96
[2023-09-05 10:55] VITALS: BP 200/88
[2023-09-05 10:55] LABS: HEMATOCRIT 38.7 % (42.0-52.0); HEMOGLOBIN 12.5 g/dl (13.5-17.5); MEAN CORPUSCULAR HEMOGLOBIN 29.4 pg (27.0-33.0); MEAN CORPUSCULAR HGB CONC 32.3 g/dl (32.0-36.5); MEAN CORPUSCULAR VOLUME 91.1 fl (80.0-96.0); PLATELET COUNT, AUTOMATED 241 10^3/uL (150-450); RED BLOOD COUNT 4.25 10^6/uL (4.30-6.10)
[2023-09-05 11:02] LABS: INR 1.08; PROTHROMBIN TIME 13.7 SECONDS (12.5-14.5)
[2023-09-05 11:05] VITALS: BP 188/92
== END ==
LOC: M IRPRO 09:44
PROVIDERS: ATTEND Orthopaedic Surgery
DX: M75.42 Impingement syndrome of left shoulder (principal); M19.012 Primary osteoarthritis, left shoulder; M65.812 Other synovitis and tenosynovitis, left shoulder; Z79.890 Hormone replacement therapy; Z79.82 Long term (current) use of aspirin; Z79.84 Long term (current) use of oral hypoglycemic drugs

== ENCOUNTER → 2023-09-08 | Outpatient (CLI) | payer OTHER, MEDICARE ==
[~2023-09-08] MED LIST changes: +ISOVUE-M 300 61% 15ML VIAL As Ordered ONE; +LIDOCAINE 1% SDV 30ML VIAL As Ordered ONE; +dexAMETHasone 10MG/1ML VIAL PRES.FREE As Ordered ONE; +oxyCODONE 5MG TAB As Ordered ONE
== END ==
LOC: M PAIN 12:45
PROVIDERS: ATTEND Anesthesiology
DX: M51.16 Intervertebral disc disorders with radiculopathy, lumbar region (principal); G89.29 Other chronic pain; I11.0 Hypertensive heart disease with heart failure; I50.42 Chronic combined systolic (congestive) and diastolic (congestive) heart failure; E11.9 Type 2 diabetes mellitus without complications; J44.9 Chronic obstructive pulmonary disease, unspecified; E78.5 Hyperlipidemia, unspecified; K21.9 Gastro-esophageal reflux disease without esophagitis; M25.561 Pain in right knee; M79.7 Fibromyalgia; E66.9 Obesity, unspecified; Z95.810 Presence of automatic (implantable) cardiac defibrillator; Z87.891 Personal history of nicotine dependence; Z79.891 Long term (current) use of opiate analgesic; Z79.82 Long term (current) use of aspirin; Z79.84 Long term (current) use of oral hypoglycemic drugs; Z79.899 Other long term (current) drug therapy; Z91.018 Allergy to other foods; Z88.6 Allergy status to analgesic agent; Z88.8 Allergy status to other drugs, medicaments and biological substances; Z91.048 Other nonmedicinal substance allergy status; Z68.33 Body mass index [BMI] 33.0-33.9, adult
CPT/HCPCS: 64483; J0665; J1100; Q9967

== ENCOUNTER → 2023-09-13 | Outpatient (CLI) | payer MEDICARE, MEDICAID ==
[~2023-09-13] MED LIST changes: -ISOVUE-M 300 61% 15ML VIAL As Ordered ONE; -LIDOCAINE 1% SDV 30ML VIAL As Ordered ONE; -dexAMETHasone 10MG/1ML VIAL PRES.FREE As Ordered ONE; -oxyCODONE 5MG TAB As Ordered ONE
[2023-09-13 15:57] LABS: HEMATOCRIT 37.6 % (42.0-52.0); HEMOGLOBIN 11.9 g/dl (13.5-17.5); MEAN CORPUSCULAR HGB CONC 31.6 g/dl (32.0-36.5); MEAN CORPUSCULAR VOLUME 91.5 fl (80.0-96.0); PLATELET COUNT, AUTOMATED 222 10^3/uL (150-450); RED BLOOD COUNT 4.11 10^6/uL (4.30-6.10); WHITE BLOOD COUNT 7.6 10^3/uL (4.0-10.0)
[2023-09-13 16:24] LABS: BLOOD UREA NITROGEN 19 MG/DL (9-23); CALCIUM LEVEL 8.9 MG/DL (8.3-10.6); CARBON DIOXIDE LEVEL 28 MMOL/L (20-31); CHLORIDE LEVEL 108 MMOL/L (98-107); CREATININE FOR GFR 1.21 MG/DL (0.70-1.30); GLOMERULAR FILTRATION RATE > 60.0 (>49); GLUCOSE, FASTING 94 MG/DL (74-106); POTASSIUM SERUM 4.7 MMOL/L (3.5-5.1); SODIUM LEVEL 139 MMOL/L (136-145)
[2023-09-13 16:27] LABS: FREE T4 1.46 NG/DL (0.89-1.76); THYROID STIMULATING HORMONE 7.653 uIU/ML (0.55-4.78)
== END ==
LOC: M LAB 15:17
PROVIDERS: ATTEND Student in an Organized Health Care Education/Training Program
DX: I10 Essential (primary) hypertension (principal)

== ENCOUNTER → 2023-10-26 | Outpatient (CLI) | payer OTHER, MEDICARE | LOC: M PAIN 10:45 | PROVIDERS: ATTEND Anesthesiology | DX: M96.1 Postlaminectomy syndrome, not elsewhere classified (principal); M79.18 Myalgia, other site; M47.816 Spondylosis without myelopathy or radiculopathy, lumbar region; G89.29 Other chronic pain; I50.42 Chronic combined systolic (congestive) and diastolic (congestive) heart failure; I11.0 Hypertensive heart disease with heart failure; E11.9 Type 2 diabetes mellitus without complications; J44.9 Chronic obstructive pulmonary disease, unspecified; E78.5 Hyperlipidemia, unspecified; K21.9 Gastro-esophageal reflux disease without esophagitis; M54.50 Low back pain, unspecified; E66.9 Obesity, unspecified; Z68.33 Body mass index [BMI] 33.0-33.9, adult; Z87.891 Personal history of nicotine dependence; Z79.84 Long term (current) use of oral hypoglycemic drugs; Z79.890 Hormone replacement therapy; Z79.891 Long term (current) use of opiate analgesic; Z79.899 Other long term (current) drug therapy; Z88.6 Allergy status to analgesic agent; Z88.8 Allergy status to other drugs, medicaments and biological substances; Z91.018 Allergy to other foods; Z91.048 Other nonmedicinal substance allergy status ==

== ENCOUNTER → 2023-10-27 | Outpatient (CLI) | payer OTHER, MEDICARE | LOC: M PAIN 09:00 | PROVIDERS: ATTEND Nurse Practitioner Family | DX: M25.552 Pain in left hip (principal); M70.62 Trochanteric bursitis, left hip; I50.42 Chronic combined systolic (congestive) and diastolic (congestive) heart failure; I11.0 Hypertensive heart disease with heart failure; E11.9 Type 2 diabetes mellitus without complications; J44.9 Chronic obstructive pulmonary disease, unspecified; E78.5 Hyperlipidemia, unspecified; K21.9 Gastro-esophageal reflux disease without esophagitis; M79.7 Fibromyalgia; E66.9 Obesity, unspecified; Z68.33 Body mass index [BMI] 33.0-33.9, adult; Z79.84 Long term (current) use of oral hypoglycemic drugs; Z79.82 Long term (current) use of aspirin; Z79.890 Hormone replacement therapy; Z79.899 Other long term (current) drug therapy; Z87.891 Personal history of nicotine dependence; Z88.6 Allergy status to analgesic agent; Z88.8 Allergy status to other drugs, medicaments and biological substances; Z91.018 Allergy to other foods; Z91.048 Other nonmedicinal substance allergy status ==

== ENCOUNTER → 2023-11-02 | Outpatient (CLI) | payer MEDICARE, MEDICAID | LOC: M RAD 12:44 | PROVIDERS: ATTEND Orthopaedic Surgery | DX: M54.12 Radiculopathy, cervical region (principal); M47.892 Other spondylosis, cervical region ==

== ENCOUNTER → 2023-11-10 | Outpatient (CLI) | payer MEDICARE, MEDICAID ==
[~2023-11-10] MED LIST changes: -OXYB5TAB11 PO; +OXYB5TAB14 PO
== END ==
LOC: M PLAIMG 11:14
PROVIDERS: ATTEND Nurse Practitioner Family
DX: M25.552 Pain in left hip (principal); M47.816 Spondylosis without myelopathy or radiculopathy, lumbar region; Z98.1 Arthrodesis status; K40.90 Unilateral inguinal hernia, without obstruction or gangrene, not specified as recurrent; K57.90 Diverticulosis of intestine, part unspecified, without perforation or abscess without bleeding; M16.0 Bilateral primary osteoarthritis of hip

== ENCOUNTER → 2023-11-18 | Outpatient (CLI) | payer OTHER, MEDICARE | LOC: M PAIN 10:30 | PROVIDERS: ATTEND Nurse Practitioner Family | DX: M70.62 Trochanteric bursitis, left hip (principal); I50.9 Heart failure, unspecified; I11.0 Hypertensive heart disease with heart failure; E11.9 Type 2 diabetes mellitus without complications; E78.5 Hyperlipidemia, unspecified; J44.9 Chronic obstructive pulmonary disease, unspecified; M54.50 Low back pain, unspecified; M79.7 Fibromyalgia; Z87.891 Personal history of nicotine dependence; Z95.810 Presence of automatic (implantable) cardiac defibrillator; Z79.02 Long term (current) use of antithrombotics/antiplatelets; Z79.51 Long term (current) use of inhaled steroids; Z79.82 Long term (current) use of aspirin; Z79.84 Long term (current) use of oral hypoglycemic drugs; Z79.890 Hormone replacement therapy; Z79.891 Long term (current) use of opiate analgesic; Z79.899 Other long term (current) drug therapy; Z88.6 Allergy status to analgesic agent; Z88.8 Allergy status to other drugs, medicaments and biological substances; Z91.018 Allergy to other foods; Z91.048 Other nonmedicinal substance allergy status ==

== ENCOUNTER → 2023-12-06 | Outpatient (CLI) | payer MEDICARE, MEDICAID | LOC: M RAD 11:35 | PROVIDERS: ATTEND Physician Assistant Medical | DX: R68.81 Early satiety (principal); R93.3 Abnormal findings on diagnostic imaging of other parts of digestive tract | CPT/HCPCS: 78264; A9541 ==

== ENCOUNTER → 2023-12-23 | Outpatient (CLI) | payer OTHER, MEDICARE | LOC: M PAIN 11:00 | PROVIDERS: ATTEND Nurse Practitioner Family | DX: M79.10 Myalgia, unspecified site (principal); M54.50 Low back pain, unspecified; Z79.891 Long term (current) use of opiate analgesic; Z79.82 Long term (current) use of aspirin; Z88.6 Allergy status to analgesic agent; Z88.8 Allergy status to other drugs, medicaments and biological substances; Z91.018 Allergy to other foods; Z91.048 Other nonmedicinal substance allergy status; Z87.891 Personal history of nicotine dependence ==

== ENCOUNTER → 2024-01-19 | Outpatient (CLI) | payer MEDICARE, MEDICAID ==
[~2024-01-19] MED LIST changes: +TIZA4CAP3 PO; -TIZA4CAP6 PO
== END ==
LOC: M PLAIMG 12:28
PROVIDERS: ATTEND Physician Assistant
DX: I44.0 Atrioventricular block, first degree (principal); R00.1 Bradycardia, unspecified; I50.42 Chronic combined systolic (congestive) and diastolic (congestive) heart failure; I42.0 Dilated cardiomyopathy; I35.1 Nonrheumatic aortic (valve) insufficiency

== ENCOUNTER → 2024-02-21 | Outpatient (CLI) | payer MEDICARE, MEDICAID ==
[~2024-02-21] MED LIST changes: +DOXY-323 PO; -DOXY-443 PO; +IPRA6SP
[2024-02-21 10:28] LABS: HEMATOCRIT 39.8 % (42.0-52.0); HEMOGLOBIN 12.9 g/dl (13.5-17.5); MEAN CORPUSCULAR HEMOGLOBIN 29.2 pg (27.0-33.0); MEAN CORPUSCULAR HGB CONC 32.4 g/dl (32.0-36.5); PLATELET COUNT, AUTOMATED 254 10^3/uL (150-450); RED BLOOD COUNT 4.42 10^6/uL (4.30-6.10); WHITE BLOOD COUNT 9.9 10^3/uL (4.0-10.0)
[2024-02-21 10:46] LABS: CREATININE, URINE 156.8 MG/DL
[2024-02-21 10:48] LABS: ALBUMIN 3.5 G/DL (3.2-5.2); ALKALINE PHOSPHATASE 72 U/L (46-116); ALT/SGPT 78 U/L (7.0-40); AST/SGOT 60 U/L (<34); BILIRUBIN,TOTAL 0.5 MG/DL (0.3-1.2); BLOOD UREA NITROGEN 21 MG/DL (9-23); CALCIUM LEVEL 9.4 MG/DL (8.3-10.6); CARBON DIOXIDE LEVEL 29 MMOL/L (20-31); CHLORIDE LEVEL 108 MMOL/L (98-107); CHOLESTEROL LEVEL 118 MG/DL (<200); CHOLESTEROL RISK RATIO 2.53 (<5); GLOMERULAR FILTRATION RATE > 60.0 (>49); GLUCOSE, FASTING 109 MG/DL (74-106); HDL CHOLESTEROL 46.6 MG/DL (>40); LDL CHOLESTEROL 54.2 MG/DL (<100); NON-HDL-C 71.4 MG/DL; POTASSIUM SERUM 4.7 MMOL/L (3.5-5.1); SODIUM LEVEL 141 MMOL/L (136-145); TRIGLYCERIDES LEVEL 86 MG/DL (<150)
== END ==
LOC: M LAB 09:39
PROVIDERS: ATTEND Family Medicine
DX: E78.5 Hyperlipidemia, unspecified (principal); E55.9 Vitamin D deficiency, unspecified; E11.9 Type 2 diabetes mellitus without complications; I11.0 Hypertensive heart disease with heart failure; I50.42 Chronic combined systolic (congestive) and diastolic (congestive) heart failure

== ENCOUNTER → 2024-02-28 | Outpatient (CLI) | payer OTHER, MEDICARE | LOC: M PAIN 14:00 | PROVIDERS: ATTEND Nurse Practitioner Family | DX: M79.10 Myalgia, unspecified site (principal); E11.9 Type 2 diabetes mellitus without complications; Z95.0 Presence of cardiac pacemaker; Z79.51 Long term (current) use of inhaled steroids; Z79.82 Long term (current) use of aspirin; Z79.891 Long term (current) use of opiate analgesic; Z79.899 Other long term (current) drug therapy; Z88.6 Allergy status to analgesic agent; Z88.8 Allergy status to other drugs, medicaments and biological substances; Z91.018 Allergy to other foods; Z91.048 Other nonmedicinal substance allergy status ==

== ENCOUNTER → 2024-03-27 | Outpatient (CLI) | payer MEDICARE | LOC: M RAD 09:44 | PROVIDERS: ATTEND Family Medicine | DX: Z86.79 Personal history of other diseases of the circulatory system (principal) ==

== ENCOUNTER → 2024-04-02 | Outpatient (CLI) | payer MEDICARE, MEDICAID ==
[2024-04-02 12:43] LABS: BASO # 0.1 10^3/uL (0.0-0.2); BASO % 0.8 % (0.0-1.0); EOS # 0.2 10^3/uL (0.0-0.5); EOS % 2.6 % (0.0-3.0); HEMATOCRIT 38.3 % (42.0-52.0); HEMOGLOBIN 12.3 g/dl (13.5-17.5); LYMPH # 1.8 10^3/uL (1.5-5.0); LYMPH % 19.2 % (24.0-44.0); MEAN CORPUSCULAR HEMOGLOBIN 29.8 pg (27.0-33.0); MEAN CORPUSCULAR HGB CONC 32.1 g/dl (32.0-36.5); MEAN CORPUSCULAR VOLUME 92.7 fl (80.0-96.0); MONO # 1.1 10^3/uL (0.0-0.8); MONO % 11.7 % (2.0-8.0); NEUTROPHILS % 65.3 % (36.0-66.0); PLATELET COUNT, AUTOMATED 291 10^3/uL (150-450); RED BLOOD COUNT 4.13 10^6/uL (4.30-6.10); WHITE BLOOD COUNT 9.2 10^3/uL (4.0-10.0)
== END ==
LOC: M PLALAB 10:34 → M PLAIMG 10:34
PROVIDERS: ATTEND Physician Assistant Medical
DX: R05.1 Acute cough (principal); R06.02 Shortness of breath

== ENCOUNTER 2024-05-22 11:21 | Outpatient (RCR) | payer MEDICARE, MEDICAID | END 2024-05-26 | LOC: M PT 11:21 | PROVIDERS: ATTEND Orthopaedic Surgery | DX: M54.12 Radiculopathy, cervical region (principal) ==

== ENCOUNTER → 2024-05-31 | Outpatient (CLI) | payer MEDICARE, MEDICAID ==
[2024-05-31 17:03] LABS: ALBUMIN 3.7 G/DL (3.2-5.2); BILIRUBIN,DIRECT 0.1 MG/DL (<0.4); BILIRUBIN,TOTAL 0.3 MG/DL (0.3-1.2); TOTAL PROTEIN 6.4 G/DL (5.7-8.2)
== END ==
LOC: M LAB 16:08
PROVIDERS: ATTEND Podiatrist Foot & Ankle Surgery
DX: B35.1 Tinea unguium (principal)

== ENCOUNTER → 2024-05-31 | Outpatient (CLI) | payer MEDICARE, MEDICAID ==
[~2024-05-31] MED LIST changes: -DOXY-323 PO; +DOXY-441 PO
== END ==
LOC: M PAIN 11:00
PROVIDERS: ATTEND Nurse Practitioner Family
DX: M79.18 Myalgia, other site (principal); Z79.891 Long term (current) use of opiate analgesic; G89.29 Other chronic pain; M54.50 Low back pain, unspecified; I50.42 Chronic combined systolic (congestive) and diastolic (congestive) heart failure; I11.0 Hypertensive heart disease with heart failure; E11.9 Type 2 diabetes mellitus without complications; J44.9 Chronic obstructive pulmonary disease, unspecified; E78.5 Hyperlipidemia, unspecified; K21.9 Gastro-esophageal reflux disease without esophagitis; B35.1 Tinea unguium; E66.9 Obesity, unspecified; Z87.891 Personal history of nicotine dependence; Z79.84 Long term (current) use of oral hypoglycemic drugs; Z79.82 Long term (current) use of aspirin; Z79.899 Other long term (current) drug therapy; Z88.8 Allergy status to other drugs, medicaments and biological substances; Z88.6 Allergy status to analgesic agent; Z91.018 Allergy to other foods; Z68.32 Body mass index [BMI] 32.0-32.9, adult
CPT/HCPCS: 36415; 80076; G0463

== ENCOUNTER → 2024-05-31 | Outpatient (CLI) | payer MEDICARE, MEDICAID ==
[~2024-05-31] MED LIST changes: +DOXY-323 PO; -DOXY-441 PO
== END ==
LOC: M PAIN 15:45
PROVIDERS: ATTEND Nurse Practitioner Family
DX: Z79.899 Other long term (current) drug therapy (principal); Z53.9 Procedure and treatment not carried out, unspecified reason

== ENCOUNTER 2024-06-14 13:45 | Outpatient (RCR) | payer MEDICARE, MEDICAID | END 2024-06-25 | LOC: M PT 13:45 | PROVIDERS: ATTEND Orthopaedic Surgery | DX: M54.12 Radiculopathy, cervical region (principal) ==

== ENCOUNTER → 2024-06-29 | Outpatient (CLI) | payer OTHER ==
[~2024-06-29] MED LIST changes: -DOXY-323 PO; +DOXY-441 PO
== END ==
LOC: M PAIN 15:00
PROVIDERS: ATTEND Nurse Practitioner Family
DX: M79.18 Myalgia, other site (principal); Z79.891 Long term (current) use of opiate analgesic; G89.29 Other chronic pain; I50.42 Chronic combined systolic (congestive) and diastolic (congestive) heart failure; I11.0 Hypertensive heart disease with heart failure; E11.9 Type 2 diabetes mellitus without complications; J44.9 Chronic obstructive pulmonary disease, unspecified; E78.5 Hyperlipidemia, unspecified; K21.9 Gastro-esophageal reflux disease without esophagitis; M25.561 Pain in right knee; E66.9 Obesity, unspecified; Z87.891 Personal history of nicotine dependence; Z79.84 Long term (current) use of oral hypoglycemic drugs; Z88.6 Allergy status to analgesic agent; Z88.8 Allergy status to other drugs, medicaments and biological substances; Z91.018 Allergy to other foods; Z68.32 Body mass index [BMI] 32.0-32.9, adult

== ENCOUNTER → 2024-07-06 | Outpatient (CLI) | payer MEDICARE, MEDICAID ==
[2024-07-06 14:56] LABS: MAGNESIUM LEVEL 1.9 MG/DL (1.8-2.4)
[2024-07-06 15:13] LABS: HEPATITIS B SURFACE ANTIGEN NEGATIVE (NEGATIVE)
[2024-07-06 15:34] LABS: HEPATITIS C VIRUS ABY INDEX < 0.02 INDEX (<0.8)
[2024-07-06 16:34] LABS: HEPATITIS B CORE ANTIBODY IGM NEGATIVE (NEGATIVE)
== END ==
LOC: M LAB 13:54
PROVIDERS: ATTEND Family Medicine
DX: R74.01 Elevation of levels of liver transaminase levels (principal); R25.2 Cramp and spasm; E83.42 Hypomagnesemia; E11.9 Type 2 diabetes mellitus without complications

== ENCOUNTER → 2024-07-13 | Outpatient (CLI) | payer MEDICARE, MEDICAID ==
[~2024-07-13] MED LIST changes: +ISOVUE-300 61% 100ML VIAL As Ordered ONE; +LIDOCAINE 1% MDV 20ML VIAL As Ordered ONE; +TRIAMCINOLONE ACETONIDE SUSP 40MG/ML 1ML VIAL As Ordered ONE
== END ==
LOC: M RAD 12:45
PROVIDERS: ATTEND Orthopaedic Surgery
DX: M16.12 Unilateral primary osteoarthritis, left hip (principal)
CPT/HCPCS: 20610; 77002; J3301; Q9967

== ENCOUNTER 2024-07-17 13:39 | Outpatient (RCR) | payer MEDICARE, MEDICAID ==
[~2024-07-17 13:39] MED LIST changes: -ISOVUE-300 61% 100ML VIAL As Ordered ONE; -LIDOCAINE 1% MDV 20ML VIAL As Ordered ONE; -TRIAMCINOLONE ACETONIDE SUSP 40MG/ML 1ML VIAL As Ordered ONE
== END 2024-07-26 ==
LOC: M PT 13:39
PROVIDERS: ATTEND Orthopaedic Surgery
DX: M54.12 Radiculopathy, cervical region (principal)

== ENCOUNTER → 2024-07-30 | Outpatient (CLI) | payer MEDICARE, MEDICAID | LOC: M PAIN 16:30 | PROVIDERS: ATTEND Nurse Practitioner Family | DX: M79.12 Myalgia of auxiliary muscles, head and neck (principal); M54.2 Cervicalgia; G89.29 Other chronic pain; I50.42 Chronic combined systolic (congestive) and diastolic (congestive) heart failure; I11.0 Hypertensive heart disease with heart failure; E11.9 Type 2 diabetes mellitus without complications; J44.9 Chronic obstructive pulmonary disease, unspecified; K21.9 Gastro-esophageal reflux disease without esophagitis; M54.50 Low back pain, unspecified; M25.561 Pain in right knee; R42 Dizziness and giddiness; E66.9 Obesity, unspecified; F10.11 Alcohol abuse, in remission; Z87.891 Personal history of nicotine dependence; Z79.84 Long term (current) use of oral hypoglycemic drugs; Z79.82 Long term (current) use of aspirin; Z79.891 Long term (current) use of opiate analgesic; Z79.899 Other long term (current) drug therapy; Z88.6 Allergy status to analgesic agent; Z88.8 Allergy status to other drugs, medicaments and biological substances; Z91.018 Allergy to other foods; Z68.33 Body mass index [BMI] 33.0-33.9, adult ==

== ENCOUNTER 2024-08-13 10:48 | Emergency (ER) | payer MEDICARE, MEDICAID ==
[~2024-08-13] VITALS: Ht 182.9 cm; Wt 107.7 kg
[2024-08-13 15:06] VITALS: BP 126/61; TEMP 97.3; O2SAT 98
== END 2024-08-13 15:32 | disposition home or self-care (01) ==
LOC: M ED 10:48
DX: S09.90XA Unspecified injury of head, initial encounter (principal); S70.02XA Contusion of left hip, initial encounter; S23.41XA Sprain of ribs, initial encounter; W10.9XXA Fall (on) (from) unspecified stairs and steps, initial encounter; Y92.009 Unspecified place in unspecified non-institutional (private) residence as the place of occurrence of the external cause; Y93.9 Activity, unspecified; Y99.9 Unspecified external cause status; Z98.1 Arthrodesis status; Z95.810 Presence of automatic (implantable) cardiac defibrillator; Z96.651 Presence of right artificial knee joint; I11.0 Hypertensive heart disease with heart failure; E78.00 Pure hypercholesterolemia, unspecified; J44.9 Chronic obstructive pulmonary disease, unspecified; Z87.01 Personal history of pneumonia (recurrent); G47.30 Sleep apnea, unspecified; K21.9 Gastro-esophageal reflux disease without esophagitis; K57.92 Diverticulitis of intestine, part unspecified, without perforation or abscess without bleeding; K44.9 Diaphragmatic hernia without obstruction or gangrene; N40.0 Benign prostatic hyperplasia without lower urinary tract symptoms; M79.7 Fibromyalgia; E11.9 Type 2 diabetes mellitus without complications; E03.9 Hypothyroidism, unspecified; M16.12 Unilateral primary osteoarthritis, left hip; Z79.82 Long term (current) use of aspirin; Z79.84 Long term (current) use of oral hypoglycemic drugs; Z79.899 Other long term (current) drug therapy; Z88.6 Allergy status to analgesic agent; Z91.89 Other specified personal risk factors, not elsewhere classified; Z88.8 Allergy status to other drugs, medicaments and biological substances; Z91.018 Allergy to other foods; Z91.02 Food additives allergy status

== ENCOUNTER → 2024-08-28 | Outpatient (CLI) | payer MEDICARE, OTHER ==
[~2024-08-28] MED LIST changes: -ADV250INH INH; +ADVA1AER9 INH
== END ==
LOC: M PAIN 17:30
PROVIDERS: ATTEND Anesthesiology
DX: M54.50 Low back pain, unspecified (principal); M79.10 Myalgia, unspecified site; M79.18 Myalgia, other site; I50.42 Chronic combined systolic (congestive) and diastolic (congestive) heart failure; I11.0 Hypertensive heart disease with heart failure; E11.9 Type 2 diabetes mellitus without complications; J44.9 Chronic obstructive pulmonary disease, unspecified; E78.5 Hyperlipidemia, unspecified; K21.9 Gastro-esophageal reflux disease without esophagitis; G89.29 Other chronic pain; M25.561 Pain in right knee; Z87.891 Personal history of nicotine dependence; Z79.82 Long term (current) use of aspirin; Z79.84 Long term (current) use of oral hypoglycemic drugs; Z79.891 Long term (current) use of opiate analgesic; Z79.899 Other long term (current) drug therapy; Z88.6 Allergy status to analgesic agent; Z88.8 Allergy status to other drugs, medicaments and biological substances; Z91.018 Allergy to other foods

== ENCOUNTER → 2024-08-30 | Outpatient (CLI) | payer OTHER ==
[~2024-08-30] MED LIST changes: +TRIAMCINOLONE ACETONIDE SUSP 40MG/ML 1ML VIAL As Ordered ONE; +oxyCODONE 5MG TAB As Ordered ONE
== END ==
LOC: M PAIN 16:00
PROVIDERS: ATTEND Anesthesiology
DX: M79.18 Myalgia, other site (principal); M79.12 Myalgia of auxiliary muscles, head and neck; M54.2 Cervicalgia; G89.29 Other chronic pain; I50.42 Chronic combined systolic (congestive) and diastolic (congestive) heart failure; I11.0 Hypertensive heart disease with heart failure; E11.9 Type 2 diabetes mellitus without complications; J44.9 Chronic obstructive pulmonary disease, unspecified; K21.9 Gastro-esophageal reflux disease without esophagitis; M54.50 Low back pain, unspecified; M25.561 Pain in right knee; R42 Dizziness and giddiness; E66.9 Obesity, unspecified; F10.11 Alcohol abuse, in remission; Z87.891 Personal history of nicotine dependence; Z79.84 Long term (current) use of oral hypoglycemic drugs; Z79.82 Long term (current) use of aspirin; Z79.891 Long term (current) use of opiate analgesic; Z79.899 Other long term (current) drug therapy; Z88.6 Allergy status to analgesic agent; Z88.8 Allergy status to other drugs, medicaments and biological substances; Z91.018 Allergy to other foods; Z68.32 Body mass index [BMI] 32.0-32.9, adult
CPT/HCPCS: 20552; J0665; J3301

== ENCOUNTER → 2024-10-30 | Outpatient (CLI) | payer OTHER ==
[~2024-10-30] MED LIST changes: -TRIAMCINOLONE ACETONIDE SUSP 40MG/ML 1ML VIAL As Ordered ONE; -oxyCODONE 5MG TAB As Ordered ONE
== END ==
LOC: M PAIN 14:30
PROVIDERS: ATTEND Nurse Practitioner Family
DX: M51.16 Intervertebral disc disorders with radiculopathy, lumbar region (principal); M96.1 Postlaminectomy syndrome, not elsewhere classified; M79.10 Myalgia, unspecified site; G89.29 Other chronic pain; I10 Essential (primary) hypertension; E78.5 Hyperlipidemia, unspecified; K21.9 Gastro-esophageal reflux disease without esophagitis; Z79.890 Hormone replacement therapy; Z79.891 Long term (current) use of opiate analgesic; Z79.899 Other long term (current) drug therapy; Z87.891 Personal history of nicotine dependence; Z88.6 Allergy status to analgesic agent; Z88.8 Allergy status to other drugs, medicaments and biological substances; Z91.018 Allergy to other foods

== ENCOUNTER → 2024-11-29 | Outpatient (CLI) | payer MEDICARE, MEDICAID | LOC: M RAD 15:11 | DX: Z12.2 Encounter for screening for malignant neoplasm of respiratory organs (principal); Z87.891 Personal history of nicotine dependence; R91.1 Solitary pulmonary nodule ==

== ENCOUNTER → 2024-12-15 | Outpatient (CLI) | payer MEDICARE, MEDICAID ==
[2024-12-15 12:07] LABS: MEAN CORPUSCULAR HEMOGLOBIN 29.3 pg (27.0-33.0); MEAN CORPUSCULAR HGB CONC 32.5 g/dl (32.0-36.5); MEAN CORPUSCULAR VOLUME 90.3 fl (80.0-96.0); PLATELET COUNT, AUTOMATED 251 10^3/uL (150-450); RED BLOOD COUNT 4.43 10^6/uL (4.30-6.10); WHITE BLOOD COUNT 7.3 10^3/uL (4.0-10.0)
[2024-12-15 12:37] LABS: ALBUMIN 3.6 G/DL (3.2-5.2); ALKALINE PHOSPHATASE 110 U/L (40-129); ALT/SGPT 47 U/L (7.0-40); AST/SGOT 54 U/L (<34); BILIRUBIN,TOTAL 0.5 MG/DL (0.3-1.2); BLOOD UREA NITROGEN 17 MG/DL (9-23); CALCIUM LEVEL 10.3 MG/DL (8.3-10.6); CARBON DIOXIDE LEVEL 30 MMOL/L (20-31); CHLORIDE LEVEL 104 MMOL/L (98-107); CHOLESTEROL LEVEL 130 MG/DL (<200); CHOLESTEROL RISK RATIO 2.38 (<5); CREATININE FOR GFR 0.98 MG/DL (0.70-1.30); GLOMERULAR FILTRATION RATE > 60.0 (>49); GLUCOSE, FASTING 105 MG/DL (74-106); HDL CHOLESTEROL 54.5 MG/DL (>40); LDL CHOLESTEROL 59.1 MG/DL (<100); MAGNESIUM LEVEL 1.8 MG/DL (1.8-2.4); NON-HDL-C 75.5 MG/DL; POTASSIUM SERUM 4.8 MMOL/L (3.5-5.1); SODIUM LEVEL 141 MMOL/L (136-145); TOTAL PROTEIN 6.7 G/DL (5.7-8.2); TRIGLYCERIDES LEVEL 82 MG/DL (<150)
== END ==
LOC: M LAB 11:37
PROVIDERS: ATTEND Physician Assistant
DX: I50.42 Chronic combined systolic (congestive) and diastolic (congestive) heart failure (principal); I47.20 Ventricular tachycardia, unspecified; E78.2 Mixed hyperlipidemia

== ENCOUNTER → 2025-01-02 | Outpatient (CLI) | payer MEDICARE, MEDICAID ==
[2025-01-02 13:22] LABS: HEMATOCRIT 39.8 % (42.0-52.0); HEMOGLOBIN 12.6 g/dl (13.5-17.5); MEAN CORPUSCULAR HGB CONC 31.7 g/dl (32.0-36.5); MEAN CORPUSCULAR VOLUME 91.7 fl (80.0-96.0); PLATELET COUNT, AUTOMATED 245 10^3/uL (150-450); RED BLOOD COUNT 4.34 10^6/uL (4.30-6.10); WHITE BLOOD COUNT 7.2 10^3/uL (4.0-10.0)
== END ==
LOC: M PLALAB 11:06
PROVIDERS: ATTEND Student in an Organized Health Care Education/Training Program
DX: R79.89 Other specified abnormal findings of blood chemistry (principal); E03.9 Hypothyroidism, unspecified; E11.40 Type 2 diabetes mellitus with diabetic neuropathy, unspecified

== ENCOUNTER → 2025-01-03 | Outpatient (CLI) | payer MEDICARE, MEDICAID ==
[2025-01-03 12:44] LABS: HEMATOCRIT 38.3 % (42.0-52.0); HEMOGLOBIN 12.1 g/dl (13.5-17.5); MEAN CORPUSCULAR HEMOGLOBIN 28.8 pg (27.0-33.0); MEAN CORPUSCULAR HGB CONC 31.6 g/dl (32.0-36.5); MEAN CORPUSCULAR VOLUME 91.2 fl (80.0-96.0); PLATELET COUNT, AUTOMATED 224 10^3/uL (150-450); WHITE BLOOD COUNT 7.1 10^3/uL (4.0-10.0)
[2025-01-03 12:59] LABS: ERYTHROCYTE SEDIMENTATION RATE 36 mm/hr (0-20); INR 0.91; PROTHROMBIN TIME 12.5 SECONDS (12.5-14.5)
[2025-01-03 13:16] LABS: ALBUMIN 3.5 G/DL (3.2-5.2); BILIRUBIN,TOTAL 0.2 MG/DL (0.3-1.2); CALCIUM LEVEL 8.9 MG/DL (8.3-10.6); CREATININE FOR GFR 1.09 MG/DL (0.70-1.30); GLOMERULAR FILTRATION RATE 74.9 (>49); POTASSIUM SERUM 4.6 MMOL/L (3.5-5.1); TOTAL PROTEIN 6.4 G/DL (5.7-8.2)
== END ==
LOC: M RAD 11:56
PROVIDERS: ATTEND Orthopaedic Surgery
DX: Z01.818 Encounter for other preprocedural examination (principal); M16.12 Unilateral primary osteoarthritis, left hip

== ENCOUNTER → 2025-02-13 | Outpatient (CLI) | payer MEDICARE, MEDICAID ==
[~2025-02-13] MED LIST changes: -FLOM0.4C39 PO; +TAMS-18 PO
== END ==
LOC: M LAB 15:16
PROVIDERS: ATTEND Student in an Organized Health Care Education/Training Program
DX: E03.9 Hypothyroidism, unspecified (principal)

== ENCOUNTER 2025-04-18 13:45 | Outpatient (RCR) | payer MEDICARE, MEDICAID ==
[~2025-04-18 13:45] MED LIST changes: -AMIO200T49 PO; +AMIO200T54 PO; +AMIT25TA19 PO; +ATOR40TA75 PO; +BISO10TA13 PO; +CETI-24 PO; +ERGO500029 PO; +FAMO40TA3 PO; +POTA1TAB23 PO; +RESM100T PO; +SUCR1TAB56 PO; +TOLT2TAB12 PO
== END 2025-04-25 ==
LOC: M PT 13:45
PROVIDERS: ATTEND Orthopaedic Surgery
DX: M16.12 Unilateral primary osteoarthritis, left hip (principal)

== ENCOUNTER 2025-04-20 17:27 | Emergency (ER) | payer MEDICARE, MEDICAID ==
[~2025-04-20] VITALS: Ht 182.9 cm; Wt 105.5 kg
[2025-04-20 19:16] LABS: BASO # 0.1 10^3/uL (0.0-0.2); BASO % 0.4 % (0.0-1.0); EOS # 0.4 10^3/uL (0.0-0.5); EOS % 2.8 % (0.0-3.0); LYMPH # 2.6 10^3/uL (1.5-5.0); LYMPH % 18.7 % (24.0-44.0); MONO # 1.7 10^3/uL (0.0-0.8); MONO % 12.4 % (2.0-8.0); NEUTROPHILS # 9.0 10^3/uL (1.5-8.5); NEUTROPHILS % 64.7 % (36.0-66.0); PLATELET COUNT, AUTOMATED 260 10^3/uL (150-450)
[2025-04-20 19:40] LABS: CALCIUM LEVEL 8.5 MG/DL (8.3-10.6); CARBON DIOXIDE LEVEL 27.0 MMOL/L (20-31); CHLORIDE LEVEL 98.0 MMOL/L (98-107); CREATININE FOR GFR 1.86 MG/DL (0.70-1.30); GLOMERULAR FILTRATION RATE 39.2 (>49); POTASSIUM SERUM 4.4 MMOL/L (3.5-5.1); SODIUM LEVEL 135.0 MMOL/L (136-145)
[2025-04-20] MEDS: NS (Normal Saline) 0.9% 1,000 ML IV ONE (21:06)
[2025-04-20 22:30] LABS: MAGNESIUM LEVEL 1.7 MG/DL (1.8-2.4)
[2025-04-20] MEDS: ACETAMINOPHEN *IV* 1,000 MG in IV 1 EA IV ONE (23:21)
[2025-04-20] MEDS: MAG SULF 1GM/100ML (MAG RUN) 1 GM in IV 1 EA IV ONE (23:26)
[2025-04-20 23:28] LABS: KETONE, URINE AUTO RFX NEGATIVE (NEGATIVE); LEUKOCYTE ESTERASE UR AUTO RFX NEGATIVE (NEGATIVE); MUCUS, URINE RFX SMALL (NEGATIVE); NITRITE, URINE AUTO RFX NEGATIVE (NEGATIVE); RBC, URINE AUTO RFX 0 /HPF (0-3); SQUAM EPITHELIAL CELL UR AURFX 1 /HPF (0-6); WBC, URINE AUTO RFX 0 /HPF (0-3)
[2025-04-21 00:30] VITALS: BP 119/55; TEMP 98.2; O2SAT 93
== END 2025-04-21 00:51 | disposition home or self-care (01) ==
LOC: M ED 17:27
DX: E86.1 Hypovolemia (principal); E83.42 Hypomagnesemia; N17.9 Acute kidney failure, unspecified; M17.11 Unilateral primary osteoarthritis, right knee; I25.10 Atherosclerotic heart disease of native coronary artery without angina pectoris; I50.9 Heart failure, unspecified; I25.2 Old myocardial infarction; E11.9 Type 2 diabetes mellitus without complications; J44.9 Chronic obstructive pulmonary disease, unspecified; K21.9 Gastro-esophageal reflux disease without esophagitis; E55.9 Vitamin D deficiency, unspecified; F41.9 Anxiety disorder, unspecified; F32.A Depression, unspecified; Z96.651 Presence of right artificial knee joint; Z79.82 Long term (current) use of aspirin; Z79.899 Other long term (current) drug therapy; Z88.6 Allergy status to analgesic agent; Z88.8 Allergy status to other drugs, medicaments and biological substances; Z91.02 Food additives allergy status; Z91.89 Other specified personal risk factors, not elsewhere classified; Z91.018 Allergy to other foods
CPT/HCPCS: 70450; 71046; 72125; 73564; 80048; 81001; 83605; 83735; 84443; 85025; 87486; 87581; 87633; 87798; 93005; 96374; 96375; 99284; J0131; J3475

== ENCOUNTER → 2025-04-25 | Outpatient (REF) | payer MEDICARE ==
[2025-04-25 13:17] LABS: ALT/SGPT 95.0 U/L (7.0-40); AST/SGOT 68.0 U/L (<34); CALCIUM LEVEL 8.8 MG/DL (8.3-10.6); CARBON DIOXIDE LEVEL 28.0 MMOL/L (20-31); CHLORIDE LEVEL 104.0 MMOL/L (98-107); CREATININE FOR GFR 1.3 MG/DL (0.70-1.30); GLOMERULAR FILTRATION RATE 60.2 (>49); MAGNESIUM LEVEL 1.9 MG/DL (1.8-2.4); PLATELET COUNT, AUTOMATED 229 10^3/uL (150-450); POTASSIUM SERUM 4.2 MMOL/L (3.5-5.1); SODIUM LEVEL 139.0 MMOL/L (136-145)
[2025-04-25 13:21] LABS: FREE T4 1.19 NG/DL (0.89-1.76)
== END ==
LOC: M SFHCPLAZ 10:22
PROVIDERS: ATTEND Family Medicine
DX: N17.9 Acute kidney failure, unspecified (principal); K76.0 Fatty (change of) liver, not elsewhere classified; K74.00 Hepatic fibrosis, unspecified; E83.42 Hypomagnesemia; E03.9 Hypothyroidism, unspecified; I95.9 Hypotension, unspecified; I50.42 Chronic combined systolic (congestive) and diastolic (congestive) heart failure

== ENCOUNTER → 2025-05-15 | Outpatient (CLI) | payer MEDICARE ==
[2025-05-15 16:47] LABS: CALCIUM LEVEL 8.9 MG/DL (8.3-10.6); CARBON DIOXIDE LEVEL 26.0 MMOL/L (20-31); CHLORIDE LEVEL 107.0 MMOL/L (98-107); CREATININE FOR GFR 0.94 MG/DL (0.70-1.30); GLOMERULAR FILTRATION RATE 88.9 (>49); POTASSIUM SERUM 4.8 MMOL/L (3.5-5.1); SODIUM LEVEL 140.0 MMOL/L (136-145)
== END ==
LOC: M LAB 15:05
PROVIDERS: ATTEND Physician Assistant
DX: I50.42 Chronic combined systolic (congestive) and diastolic (congestive) heart failure (principal)

== ENCOUNTER → 2025-06-10 | Outpatient (CLI) | payer MEDICARE, MEDICAID | LOC: M PLAIMG 10:23 | PROVIDERS: ATTEND Student in an Organized Health Care Education/Training Program | DX: S83.8X1A Sprain of other specified parts of right knee, initial encounter (principal); W18.30XA Fall on same level, unspecified, initial encounter; Y92.009 Unspecified place in unspecified non-institutional (private) residence as the place of occurrence of the external cause ==

== ENCOUNTER → 2025-06-27 | Outpatient (CLI) | payer MEDICARE, MEDICAID ==
[2025-06-27 17:49] LABS: PLATELET COUNT, AUTOMATED 254 10^3/uL (150-450)
[2025-06-27 17:58] LABS: ALT/SGPT 134.0 U/L (7.0-40); AST/SGOT 170.0 U/L (<34); CALCIUM LEVEL 9.3 MG/DL (8.3-10.6); CARBON DIOXIDE LEVEL 27.0 MMOL/L (20-31); CHLORIDE LEVEL 103.0 MMOL/L (98-107); CREATININE FOR GFR 1.07 MG/DL (0.70-1.30); GLOMERULAR FILTRATION RATE 76.1 (>49); POTASSIUM SERUM 4.8 MMOL/L (3.5-5.1); SODIUM LEVEL 138.0 MMOL/L (136-145)
== END ==
LOC: M PLALAB 15:51
DX: R82.998 Other abnormal findings in urine (principal); I50.42 Chronic combined systolic (congestive) and diastolic (congestive) heart failure

== ENCOUNTER → 2025-06-28 | Outpatient (REF) | payer MEDICARE, MEDICAID ==
[2025-06-28 16:07] LABS: AMORPHOUS SEDIMENT SMALL (NEGATIVE); APPEARANCE, URINE HAZY (CLEAR); BACTERIA, URINE AUTO NEGATIVE (NEGATIVE); BILIRUBIN, URINE AUTO NEGATIVE (NEGATIVE); BLOOD, URINE BLOOD NEGATIVE (NEGATIVE); GLUCOSE, URINE (UA) AUTO NEGATIVE (NEGATIVE); KETONE, URINE AUTO NEGATIVE (NEGATIVE); LEUKOCYTE ESTERASE, URINE AUTO NEGATIVE (NEGATIVE); MUCUS, URINE SMALL (NEGATIVE); NITRITE, URINE AUTO NEGATIVE (NEGATIVE); PROTEIN, URINE AUTO NEGATIVE (NEGATIVE); RBC, URINE AUTO 0 /HPF (0-3); SPECIFIC GRAVITY URINE AUTO 1.013 (1.002-1.035); SQUAMOUS EPITHELIAL CELL UR AU 1 /HPF (0-6); UROBILINOGEN, URINE AUTO 0.2 mg/dL (0.0-2.0); WBC, URINE AUTO 0 /HPF (0-3)
== END ==
LOC: M SFHCPLAZ 15:54
PROVIDERS: ATTEND Physician Assistant
DX: R82.998 Other abnormal findings in urine (principal)

== ENCOUNTER → 2025-08-14 | Outpatient (CLI) | payer MEDICARE, MEDICAID ==
[~2025-08-14] MED LIST changes: +ISOVUE-370 76% 100 ML VIAL As Ordered ONE
[2025-08-14 16:04] LABS: CREATININE FOR GFR 1.01 MG/DL (0.70-1.30); GLOMERULAR FILTRATION RATE 81.5 (>49)
== END ==
LOC: M RAD 14:35
PROVIDERS: ATTEND Nurse Practitioner Family
DX: K46.1 Unspecified abdominal hernia with gangrene (principal)
CPT/HCPCS: 36415; 74178; 82565; 84520; Q9967

== ENCOUNTER 2025-09-24 12:15 | Outpatient (RCR) | payer MEDICARE, MEDICAID ==
[~2025-09-24 12:15] MED LIST changes: -ISOVUE-370 76% 100 ML VIAL As Ordered ONE
== END 2025-09-25 ==
LOC: M PT 12:15
PROVIDERS: ATTEND Student in an Organized Health Care Education/Training Program
DX: S80.01XD Contusion of right knee, subsequent encounter (principal); S83.8X1D Sprain of other specified parts of right knee, subsequent encounter